=== PATIENT | male | born 1970 | race Caucasian/White ===

== ENCOUNTER 2023-05-25 07:44 | Emergency (ER) | payer OTHER, SELFPAY ==
[2023-05-25] VITALS (37 sets, daily range): BP systolic 110–153; BP diastolic 74–102; PULSE 77–126; RESP 10–27; TEMP 36.6; O2SAT 96–97; BMI 31.3
--- NOTE | 2023-05-25 07:59 | XR_ITS ---
The [address] [address] Patient Name: MITCHELL MAGALLANES MRN: [id number] date: 1970 Sex: M Assigned Patient Location: ER Current Patient Location: ER Accession/Order Number: [id number] Exam Date: 05/25/2023 08:15 Report Date: 05/25/2023 08:29 At the request of: SHAUNNA REYES Procedure: XR chest 1V EXAM: XR chest 1V HISTORY: . vomiting . COMPARISON: None. TECHNIQUE: Single view of the chest FINDINGS: Heart and vascularity are unremarkable. Lungs are free of focal infiltrates. Multiple small 1 to 2 mm calcified granuloma are noted throughout both lung holman. Grossly no bony abnormality. XR/XR chest 1V IMPRESSION: 1. No acute heart or lung disease identified. 2. Old granulomatous disease. Electronically authenticated by: IVETH OWENS Date: 05/25/2023 08:29
--- NOTE | 2023-05-25 07:59 | ECG_ITS ---
The 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
[2023-05-25] MEDS: 0.9 % SODIUM CHLORIDE 1,000 ML 1000 ML IV ×2 (08:07→09:29)
--- NOTE | 2023-05-25 08:07 | ED.NAVMDI1 ---
HPI - Nausea/Vomiting/Diarrhea General Chief complaint: Nausea/Vomiting/Diarrhea Stated complaint: NAUSEA Time Seen by Provider: 05/25/23 07:49 Source: patient Mode of arrival: Wheelchair Limitations: no limitations History of Present Illness HPI Narrative: 52-year-old male presents to the emergency department for nausea vomiting and diarrhea which began yesterday. He's been a drug treatment center for three weeks and hasn't had any use of alcohol or drugs in three weeks. No fever or hematemesis. He can't stop retching. This chest was hurting as well. No fever or injury. Related Data Previous Rx's Medication Instructions Recorded dicyclomine 10 mg capsule 10 mg PO QID PRN abdominal pain 05/25/23 #20 caps ondansetron 4 mg disintegrating 4 mg PO Q6H PRN nausea and 05/25/23 tablet vomiting #20 tabs Allergies Allergy/AdvReac Type Severity Reaction Status Date / Time No Known Drug Allergies Allergy Verified 05/25/23 07:49 Review of Systems ROS Narrative A ten point review of systems is negative except as noted above. PFSH PFSH Social History Smoking status: Current every day smoker Exam Narrative Exam Narrative: Nurses note and vital signs reviewed and patient is not hypoxic. General: The patient is retching Skin: Warm, dry, no pallor noted. There is no rash noted. Head: Normocephalic, atraumatic Eye: Normal conjunctiva, no drainage Ears, Nose, Mouth, and Throat: oral mucosa is moist. Nares patent. Cardiovascular: Regular Rate and Rhythm Respiratory: Patient is in no distress, no accessory muscle use, lungs are clear to auscultation, no wheezing, rales or rhonchi Back: non-tender GI: Normal bowel sounds, no tenderness to palpation, no masses appreciated. No rebound, guarding, or rigidity noted. Musculoskeletal: The patient has no evidence of calf tenderness, no pitting edema, symmetrical pulses noted bilaterally Neurological: A&O, normal speech Psychiatric: Cooperative Constitutional Vital Signs, click to edit/add: Last Vital Signs Temp 97.9 F 05/25/23 07:49 Pulse 80 05/25/23 12:30 Resp 14 05/25/23 12:30 BP 111/74 05/25/23 12:30 Pulse Ox 96 05/25/23 08:01 O2 Del Method Room Air 05/25/23 07:49 Course Vital Signs Vital signs: Vital Signs Temperature 97.9 F 05/25/23 07:49 Respiratory Rate 20 05/25/23 07:49 Blood Pressure 110/74 05/25/23 07:49 Pulse Oximetry 97 05/25/23 07:49 Oxygen Delivery Method Room Air 05/25/23 07:49 Temperature 97.9 F 05/25/23 07:49 Pulse Rate 80 05/25/23 12:30 Respiratory Rate 14 05/25/23 12:30 Blood Pressure 111/74 05/25/23 12:30 Pulse Oximetry 96 05/25/23 08:01 Oxygen Delivery Method Room Air 05/25/23 07:49 MDM - Nausea/Vomiting/Diarrhea MDM Narrative Medical decision making narrative: The patient's workup included CAT scan the abdomen is negative. The sclerotic area in the pelvic bone was discussed with the patient and he'll follow-up with his PCP in that regard. He is able to tolerate by mouth liquids and is able to be discharged. Treatment diagnosis and follow-up were discussed with the patient. Differential Diagnosis Differential diagnosis: Likely food poisoning, gastroenteritis, dehydration and other (anxiety) Lab Data Attestation: I reviewed the patient's lab results. Labs: Lab Results 05/25/23 05/25/23 05/25/23 Range/Units 08:03 08:23 10:11 WBC 10.2 (4.0-11.0) 10^3/uL RBC 5.80 (4.70-6.10) 10^6/uL Hgb 17.6 (14.0-18.0) g/dL Hct 51.2 (42.0-54.0) % MCV 88.3 (80.0-94.0) fL MCH 30.3 (25.9-34.0) pg MCHC 34.4 (29.9-35.2) g/dL RDW 12.8 (11.0-15.0) % Plt Count 418 (150-450) 10^3/uL MPV 9.3 L (9.5-13.5) fL Neut % (Auto) 67.4 (43.0-75.0) % Lymph % (Auto) 16.6 L (20.5-60.0) % Sampson % (Auto) 14.2 H (1.7-12.0) % Eos % (Auto) 1.2 (0.9-7.0) % Baso % (Auto) 0.3 (0.2-2.0) % Neut # (Auto) 6.9 H (1.4-6.5) 10^3/uL Lymph # (Auto) 1.7 (1.2-3.8) 10^3/uL Sampson # (Auto) 1.5 H (0.3-0.8) 10^3/uL Eos # (Auto) 0.1 (0.0-0.7) 10^3/uL Baso # (Auto) 0.0 (0.0-0.1) 10^3/uL Abs Immat Gran (auto) 0.03 (0.00-0.03) 10^3/uL Imm/Tot Granulo (auto) 0.3 (0.0-0.5) % Sodium 138 (136-145) mmol/L Potassium 4.5 (3.5-5.1) mmol/L Chloride 101 (98-107) mmol/L Carbon Dioxide 23.3 (21.0-32.0) mmol/L Anion Gap 18.2 BUN 20.0 H (7.0-18.0) mg/dL Creatinine 1.17 (0.70-1.30) mg/dL Est GFR ( Amer) >60 (>=60) Est GFR (Non-Af Amer) >60 (>=60) BUN/Creatinine Ratio 17.1 Glucose 91 (74-106) mg/dL Calcium 9.0 (8.5-10.1) mg/dL Urine Color Yellow (YELLOW) Urine Clarity Clear (CLEAR) Urine pH 6.0 (5.0-9.0) Ur Specific [place] 1.020 (1.005-1.025) Urine Protein Negative (NEG/TRACE) mg/dL Urine Glucose (UA) Negative (NEGATIVE) mg/dL Urine Ketones Trace A (NEGATIVE) mg/dL Urine Occult Blood Negative (NEGATIVE) Urine Nitrite Negative (NEGATIVE) Urine Bilirubin Negative (NEGATIVE) Urine Urobilinogen 0.2 (0.2-1.0) EU/dL Ur Leukocyte Esterase Negative (NEGATIVE) Urine RBC None seen (0-2) #/HPF Urine WBC 0-2 A (NONE SEEN) #/HPF Ur Squamous Epith Cells None seen (NONE/RARE) #/LPF Urine Crystals None seen (None Seen) #/HPF Urine Bacteria None seen (NONE SEEN) #/HPF Urine Casts None seen (NONE SEEN) #/LPF Urine Mucus Trace A (NONE SEEN) Urine Opiates Screen Negative (NEGATIVE) Ur Buprenorphine Scrn Negative (NEGATIVE) Ur Oxycodone Screen Negative (NEGATIVE) Urine Methadone Screen Negative (NEGATIVE) Ur Barbiturates Screen Negative (NEGATIVE) U Tricyclic Antidepress Negative (NEGATIVE) Ur Phencyclidine Scrn Negative (NEGATIVE) Ur Amphetamines Screen Negative (NEGATIVE) U Methamphetamines Scrn Negative (NEGATIVE) U Benzodiazepines Scrn Positive A (NEGATIVE) Urine Cocaine Screen Negative (NEGATIVE) U Cannabinoids Screen Negative (NEGATIVE) Ethanol Quant <3 mg/dL Imaging Data CT scan - abdomen: Radiologist's impression: Procedure: CT abdomen pelvis w con EXAMINATION: CT abdomen pelvis w con HISTORY: pain, nausea, vomiting COMPARISON: No relevant comparison available. TECHNIQUE: Axial, Coronal, and Sagittal images were obtained without and/or with IV contrast as indicated by examination type. Dose reduction techniques were achieved by using automated exposure control and/or adjustment of mA and/or kV according to patient size and/or use of iterative reconstruction technique. FINDINGS: LUNG BASES: No visible pulmonary or pleural disease. LIVER: No enlargement, atrophy, suspicious density, or significant focal lesion. BILIARY: No dilatation or calcification. PANCREAS: No lesion, fluid collection, or abnormal duct dilatation. SPLEEN: No enlargement or focal lesion. ADRENALS: No mass or enlargement. KIDNEYS: No mass, obstruction, or calcification. BOWEL/MESENTERY: No visible mass, obstruction, or bowel wall thickening. AORTA/VASCULAR: No aneurysm or dissection. RETROPERITONEUM: No mass or adenopathy. LYMPH NODES: No adenopathy. URINARY BLADDER: No visible focal wall thickening, lesion, or calculus. PELVIC ORGANS: No visible mass. Pelvic organs appropriate for patient age. ABDOMINAL WALL: No mass or hernia. BONES: Irregular 2.8 x 2.7 x 1.2 cm sclerotic focus within anterior medial aspect of right ilium with small focus of possible anterior cortical disruption. OTHER: Negative. IMPRESSION: 1. No acute or suspicious findings to account for patient's symptoms. 2. Suspicious sclerotic lesion within the right ilium; sequela of prior trauma versus neoplasm? MRI of pelvis without and with IV contrast is recommended to evaluate for soft tissue component. Electronically authenticated by: MARIAH OLGUIN Date: 05/25/2023 12:16 Discharge Plan Discharge Chief Complaint: Nausea/Vomiting/Diarrhea Clinical Impression: Nausea & vomiting Patient Disposition: Home, Self-Care Time of Disposition Decision: 13:21 Condition: Good Mode of Transportation: Private Vehicle Prescriptions / Home Meds: New dicyclomine 10 mg capsule 10 mg PO QID PRN (Reason: abdominal pain) Qty: 20 0RF ondansetron 4 mg tablet,disintegrating 4 mg PO Q6H PRN (Reason: nausea and vomiting) Qty: 20 0RF Instructions: Acute Nausea and Vomiting (ED) Stand Alone Forms: Portal Instructions Referrals: ROMINA BARNES [Primary Care Provider] - 1 week
[2023-05-25] MEDS: ONDANSETRON PF 4 MG/2 ML VIAL IV (08:08)
[2023-05-25 08:13] LABS: Basophils Percent Auto 0.3 % (0.2-2.0); Eosinophils Absolute Auto 0.1 10^3/uL (0.0-0.7); Eosinophils Percent Auto 1.2 % (0.9-7.0); Hematocrit 51.2 % (42.0-54.0); Hemoglobin 17.6 g/dL (14.0-18.0); Immature Granulocytes Abs Auto 0.03 10^3/uL (0.00-0.03); Immature Granulocytes Pct Auto 0.3 % (0.0-0.5); Lymphocytes Absolute Auto 1.7 10^3/uL (1.2-3.8); Lymphocytes Percent Auto 16.6 % (20.5-60.0); Mean Corpuscular HGB Conc 34.4 g/dL (29.9-35.2); Mean Corpuscular Hemoglobin 30.3 pg (25.9-34.0); Mean Corpuscular Volume 88.3 fL (80.0-94.0); Mean Platelet Volume 9.3 fL (9.5-13.5); Monocytes Absolute Auto 1.5 10^3/uL (0.3-0.8); Monocytes Percent Auto 14.2 % (1.7-12.0); Neutrophils Absolute Auto 6.9 10^3/uL (1.4-6.5); Neutrophils Percent Auto 67.4 % (43.0-75.0); Platelet Count 418 10^3/uL (150-450); Red Cell Distribution Width 12.8 % (11.0-15.0); White Blood Count 10.2 10^3/uL (4.0-11.0)
[2023-05-25 08:37] LABS: Anion Gap 18.2; BUN Creatinine Ratio 17.1; Carbon Dioxide 23.3 mmol/L (21.0-32.0); Chloride 101 mmol/L (98-107); Estimated GFR (African America >60 (>=60); Estimated GFR (Non-African Ame >60 (>=60); Glucose 91 mg/dL (74-106); Potassium 4.5 mmol/L (3.5-5.1); Sodium 138 mmol/L (136-145)
[2023-05-25] MEDS: LORAZEPAM 2 MG/ML 1 ML VIAL 1 MG IV ×2 (08:37→11:13)
[2023-05-25 08:45] LABS: Ethanol <3 mg/dL
[2023-05-25 10:27] LABS: Bilirubin Urine NEGATIVE (NEGATIVE); Blood Urine NEGATIVE (NEGATIVE); Clarity Urine CLEAR (CLEAR); Color Urine YELLOW (YELLOW); Glucose Urine UA NEGATIVE (NEGATIVE); Ketones Urine TRACE mg/dL (NEGATIVE); Leukocyte Esterase Urine NEGATIVE (NEGATIVE); Nitrite Urine NEGATIVE (NEGATIVE); Protein Urine NEGATIVE (NEG/TRACE); Urobilinogen Urine 0.2 EU/dL (0.2-1.0)
[2023-05-25 10:34] LABS: RBC Urine NONE SEEN #/HPF (0-2); WBC Urine 0-2 #/HPF (NONE SEEN)
[2023-05-25 10:35] LABS: Bacteria Urine NONE SEEN #/HPF (NONE SEEN); Cast Seen? NONE SEEN #/LPF (NONE SEEN); Crystals Seen? None Seen #/HPF (None Seen); Mucus Urine TRACE (NONE SEEN); Squamous Epithelial Cell Urine NONE SEEN #/LPF (NONE/RARE)
[2023-05-25 10:38] LABS: Amphetamine Screen Urine NEGATIVE (NEGATIVE); Barbiturates Screen Urine NEGATIVE (NEGATIVE); Benzodiazepines Screen Urine POSITIVE (NEGATIVE); Buprenorphine Screen Urine NEGATIVE (NEGATIVE); Cannabinoid Screen Urine NEGATIVE (NEGATIVE); Cocaine Screen Urine NEGATIVE (NEGATIVE); Methadone Screen Urine NEGATIVE (NEGATIVE); Methamphetamines Screen Urine NEGATIVE (NEGATIVE); Opiate Screen Urine NEGATIVE (NEGATIVE); Oxycodone Screen Urine NEGATIVE (NEGATIVE); Phencyclidine Screen Urine NEGATIVE (NEGATIVE); Tricyclic Antidepressant Urine NEGATIVE (NEGATIVE)
--- NOTE | 2023-05-25 11:19 | CT_ITS ---
The [address] [address] Patient Name: MITCHELL MAGALLANES MRN: [id number] date: 1970 Sex: M Assigned Patient Location: ER Current Patient Location: Accession/Order Number: [id number] Exam Date: 05/25/2023 11:37 Report Date: 05/25/2023 12:16 At the request of: SHAUNNA REYES Procedure: CT abdomen pelvis w con EXAMINATION: CT abdomen pelvis w con HISTORY: pain, nausea, vomiting COMPARISON: No relevant comparison available. TECHNIQUE: Axial, Coronal, and Sagittal images were obtained without and/or with IV contrast as indicated by examination type. Dose reduction techniques were achieved by using automated exposure control and/or adjustment of mA and/or kV according to patient size and/or use of iterative reconstruction technique. FINDINGS: LUNG BASES: No visible pulmonary or pleural disease. LIVER: No enlargement, atrophy, suspicious density, or significant focal lesion. BILIARY: No dilatation or calcification. PANCREAS: No lesion, fluid collection, or abnormal duct dilatation. SPLEEN: No enlargement or focal lesion. ADRENALS: No mass or enlargement. KIDNEYS: No mass, obstruction, or calcification. BOWEL/MESENTERY: No visible mass, obstruction, or bowel wall thickening. AORTA/VASCULAR: No aneurysm or dissection. RETROPERITONEUM: No mass or adenopathy. LYMPH NODES: No adenopathy. URINARY BLADDER: No visible focal wall thickening, lesion, or calculus. PELVIC ORGANS: No visible mass. Pelvic organs appropriate for patient age. ABDOMINAL WALL: No mass or hernia. BONES: Irregular 2.8 x 2.7 x 1.2 cm sclerotic focus within anterior medial aspect of right ilium with small focus of possible anterior cortical disruption. OTHER: Negative. CT/CT abdomen pelvis w con IMPRESSION: 1. No acute or suspicious findings to account for patient's symptoms. 2. Suspicious sclerotic lesion within the right ilium; sequela of prior trauma versus neoplasm? MRI of pelvis without and with IV contrast is recommended to evaluate for soft tissue component. Electronically authenticated by: MARIAH OLGUIN Date: 05/25/2023 12:16
--- OUTSIDE RECORDS SUMMARY | 2023-06-30 18:23 | XMS_ITS | CCD ---
Author Name Unknown Address [address] [facility] [address] [place] [address] Organization [facility] Care Team Providers Care Cutting Supervisor Name Role Phone Taina Connell Primary Care Provider Unavailabl e Unknown, Pcp Unavailable Unavailable Aniceto Alvarez Unavailable Lele Castañeda Unavailable Taina Connell Primary Care Provider PROVIDER, UNKNOWN Attending Unavailable PROVIDER, UNKNOWN Admitting Unavailable Unavailable Primary Care Provider Unavailabl e ROSE Attending Unavailable Required, No Pcp Unavailable Unavailable Krystyna Nelson Unavailable Azul, Jin Unavailable [facility] Primary Care Provider DO Rik Lemos Emergency Provider BERNICE Almendarez Emergency Provider DO Chas Hoyos Admit Provider [phone] DO Chas Hoyos Attending Provider DO Cleveland Foreman Attending Provider MD Paulo Strauss Other Provider MD Paulo Strauss Admit Provider MD Paulo Strauss Attending Provider DO Eric Rust Emergency Provider [phone] JO Freitas Emergency Provider Trae Brantley Primary Care Provider Diaz Paz Unavailable DO Rik Lemos Emergency Provider Unavailab DO Greg White Emergency Provider MD Thuy Fitzpatrick Admit Provider [phone] MD Thuy Rodriges Attending Provider [facility] Primary Care Provider [phone] DO Rik Lemos Emergency Provider Unavailab BERNICE Jama Emergency Provider DO Chas Hoyos Admit Provider DO Cleveland Foreman Attending Provider [phone] MD Paulo Strauss Other Provider [phone] MD Paulo Strauss Admit Provider MD Paulo Strauss Attending Provider [phone] DO Eric khoury Emergency Provider JO Freitas Emergency Provider DO Greg Alexander Emergency Provider MD Thuy Fitzpatrick Admit Provider MD Thuy Rodriges Attending Provider [phone] TRAE BRANTLEY Primary Care Unavailable REYNALDO BERRY Admitting Unavailable TROY MANUEL Attending Unavailable MICHAELA CHAN Consulting Unavailable TRAE BRANTLEY Primary Care Unavailable TRAE BRANTLEY Primary Care Unavailable IVETH CONTRERAS Attending Unavailable [facility] Primary Care Provider [phone] BERNICE Almendarez Emergency Provider [phone] MD Thuy Rodriges Admit Provider MD Thuy Rodriges Attending Provider Pedrito Duran MD Primary Care Provider PEDRITO DURAN Primary Care Unavailable Trae Brantley Unavailable Markel Ramachandran Unavailable Unavailable MD Paulo Strauss Attending Provider MD Naeem Rodriges Admit Provider DO Nir [place] Emergency Provider [phone] MD Paulo Strauss Admit Provider Spasic, Trae E Primary Care Provider PCP, Pt States None Referring Unavailable Jin Liang Attending Unavailable Spasic, MsJanet Melendezbeth Primary Care Unav ailable Aiden, Mr. Hatfield Racielrasheeda Attending Unavail able Rosana, Dr. Connor Attending Unavailable PCP, Pt States None Referring Unavailable Jackson, Dr. Diaz Novoa Admitting Unavaila ble Jackson, Dr. Diaz Novoa Attending Unavaila ble Madie, Dr. 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, Trae [place] Primary Care Pr ovider SPASIC, [facility]E [place] Primary Care Unavaila HOLLIE Blancas Attending Unavailable SPASIC, [facility] Primary Care Unavaila ble SPASIC, [facility] Primary Care Unavaila OLGA Jones Attending Unavailable OLGA SCHAEFFER Admitting Unavailable ROSANA OMAID Referring Unavailable [facility] Primary Care Unavaila ble ROSANA, OMAID Referring Unavailable TRAE BRANTLEY Primary Care Unavaila ble [facility] Primary Care Provider DO Tomás Nir Connie Emergency Provider MD Naeem Rodriges Attending Provider MD Imtiaz Straussmi Admit Provider MD Paulo Strauss Attending Provider [phone] [facility] Primary Care Unavaila ble Eric Rust Admitting Unavailable Eric Ruts Attending Unavailable [facility] Primary Care Unavaila ble Paulo Strauss Consulting Unavailable Chas Hoyos Admitting Unavailable Cleveland Foreman Attending Unavailabl e Naeem Rodriges Admitting Unavailab le Naeem Rodriges Attending Unavailab le [facility] Primary Care Unavaila ble [facility] Primary Care Unavaila ble Naeem Rodriges Attending Unavailab gordon Strauss, Paulo Admitting Unavailable Naeem Rodriges Attending Unavailab le [facility] Primary Care Unavaila ble Carlos A, Paulo Admitting Unavailable [facility] Primary Care Unavaila ble Paulo Strauss Attending Unavailable Naeem Rodriges Admitting Unavailab le Naeem Rodriges Attending Unavailab [facility] Primary Care Unavaila ble Danyelle Straussyemi Admitting Unavailable [facility] Primary Care Unavaila ble Rik Lemos Admitting Unavailable Rik Lemos Attending Unavailable [facility] Primary Care Unavaila ble Eric Rust Admitting Unavailable Eric Rust Attending Unavailable Tessie Freitas Admitting Unavailable Tessie Freitas Attending Unavailable [facility] Primary Care Unavaila ble Medications Current Medications Medication Drug Class(es) Dates Sig (Normalized) Sig (Original) acetaminophen 325 mg oral tablet (2 sources) Start: 06-30-2021 acetaminophen (TYLENOL) tablet 650 mg Start: 06-28-2021 End: 06-28-2021 acetaminophen (TYLENOL) tabl et 1,000 mg benzocaine 15 mg / menthol 3.6 mg oral lozenge (1 source) Standardized Chemical Allergen Start: 06-30-2021 benzocaine-menthol (CEPACOL SORE THROAT) lozenge 1 lozenge cetirizine hydrochloride 10 mg oral tablet (2 sources) Histamine-1 Receptor Antagonist Start: 07-01-2021 End: 07-07-2021 take 1 tablet by mouth once daily cetirizine (ZYRTEC) 10 MG tablet Take 1 tablet by mouth daily for 5 days 5 tablet 0 07/02/2021 07/07/2021 Active doxepin hydrochloride 10 mg oral capsule (11 sources) Tricyclic Antidepressant Start: 06-02-2023 take 20 mg by mouth three times daily Doxepin Active 20 MG PO Three times daily 90 June 02, 2023 12:00am Start: 04-21-2023 End: 06-02-2023 take 10 mg by mouth three times daily Doxepin Discontinued 10 MG PO Three times daily 90 April 20, 2023 11:00pm June 02, 2023 10:12am Start: 09-17-2022 End: 02-11-2023 take 25 mg by mouth once daily at bedtime Doxepin Discontinued 25 MG PO Daily at bedtime 45 45 September 17, 2022 12:00am February 11, 2023 1:02pm Start: 06-22-2022 End: 07-19-2022 take 1 capsule by mouth once at bedtime doxepin 25 mg oral capsule ; 1 cap(s) orally once (at bedtime) Quantity: 14 Refills: 1 Ordered: 22-Jun-2022 Jin Liang Start: 22-Jun-2022 End: 19-Jul-2022 Generic Substitution Allowed 0.4 ml enoxaparin sodium 100 mg/ml prefilled syringe (1 source) Low Molecular Weight Heparin Start: 06-28-2021 inject 40 mg by subcutaneous injection once daily 40 mg, SubCUTAneous, DAILY, First dose on Thu06/28/21 at 1615 hydrocortisone acetate 25 mg/ml / pramoxine hydrochloride 10 mg/ml rectal cream (1 source) Corticosteroid Start: 07-08-2021 Hydrocort-Pramoxi ne (Perianal) (ANALPRAM-HC) 2.5-1 % rectal cream levETIRAcetam 250 mg oral tablet (1 source) Start: 2023 take 250 mg by mouth twice daily Levetiracetam Active 250 MG PO Twice daily 2023 12:00am 1 ml LORazepam 2 mg/ml injection (6 sources) Benzodiazepine Start: 09-23-2022 LORazepam (ATIVAN) injection 2 mg Start: 07-27-2022 End: 07-27-2022 LORazepam (ATIVAN) 2 MG/ML i njection Start: 07-27-2022 End: 07-27-2022 LORazepam (ATIVAN) injection 2 mg Start: 06-29-2021 LORazepam (ATI VAN) tablet 1 mg Start: 06-28-2021 End: 06-29-2021 2 mg, IntraVENous, EVERY 6 H OURS PRN, Anxiety, Irritation, Starting on Thu06/28/21 at 1614 Start: 06-28-2021 End: 06-28-2021 LORazepam (ATIVAN) injection 2 mg montelukast 10 mg oral tablet (4 sources) Leukotriene Receptor Antagonist Start: 07-01-2021 take 1 tablet by mouth once daily montelukast (SINGULAIR) 10 MG tablet Take 1 tablet by mouth nightly 30 tablet 3 07/01/2021 Active multivitamin 1 tablet (1 source) Start: 06-29-2021 multivitamin 1 tablet Galloway (No Known Home Meds) (1 source) Start: 02-11-2023 Galloway (No Known Home Meds) Active February 11, 2023 12:00am OLANZapine 5 mg oral tablet (15 sources) Atypical Antipsychotic Start: 06-02-2023 take 5 mg by mouth every six hours Olanzapine Active 5 MG PO Q6H 30 June 02, 2023 12:00am Start: 04-15-2023 End: 04-21-2023 take 1 tablet by mouth twice daily Olanzapine (Zyprexa) 7.5 mg tablet Discontinued 7.5 MG PO Twice daily April 14, 2023 11:00pm April 21, 2023 10:23am Start: 06-22-2022 End: 07-19-2022 OLANZapine 2.5 mg oral table t ; 1 tab(s) orally 2 times a day - (Every 1 day at 08:00, 12:00 ) Quantity: 28 Refills: 1 Ordered: 22-Jun-2022 Jin Liang Start: 22-Jun-2022 End: 19-Jul-2022 Generic Substitution Allowed Start: 06-22-2022 End: 07-19-2022 take 1 tablet by mouth once at bedtime OLANZapine 10 mg oral tablet ; 1 tab(s) orally once (at bedtime) Quantity: 14 Refills: 1 Ordered: 22-Jun-2022 Jin Liang Start: 22-Jun-2022 End: 19-Jul-2022 Generic Substitution Allowed Start: 02-11-2022 End: 04-11-2022 take 1 tablet by mouth once OLANZapine 20 mg oral tabl et ; 1 tab(s) orally once (at bedtime)mood/thoughts Quantity: 30 Refills: 1 Ordered: 11-Feb-2022 Taisha Posadas Start: 11-Feb-2022 End: 11-Apr-2022 Generic Substitution Allowed Start: 07-08-2021 OLANZapine (ZY PREXA) tablet 15 mg Start: 06-29-2021 OLANZapine (ZY PREXA) tablet 15 mg OLANZapine (ZYPR EXA) 10 MG tablet Take 15 mg by mouth nightly as needed (for Insomnia) 0 Active omeprazole 40 mg delayed release oral capsule (13 sources) Proton Pump Inhibitor Start: 04-15-2023 End: 04-20-2023 take 40 mg by mouth once daily Omeprazole Active 40 MG PO Daily April 20, 2023 7:43am Start: 05-31-2019 End: 07-09-2022 take 20 mg by mouth once daily Omeprazole Discontinued 20 MG PO Daily May 31, 2019 12:00am July 09, 2022 1:14pm QUEtiapine 25 mg oral tablet (20 sources) Atypical Antipsychotic Start: 04-20-2023 End: 06-02-2023 take 25 mg by mouth three times daily Quetiapine Active 25 MG PO Three times daily June 02, 2023 7:27am Start: 09-22-2022 End: 02-11-2023 take 400 mg by mouth once daily at bedtime Quetiapine Discontinued 400 MG PO Daily at bedtime September 21, 2022 11:00pm February 11, 2023 1:02pm Start: 09-17-2022 End: 02-11-2023 take 300 mg by mouth once daily at bedtime Quetiapine Discontinued 300 MG PO Daily at bedtime 45 September 17, 2022 12:00am February 11, 2023 1:02pm Start: 09-09-2022 End: 09-22-2022 take 200 mg by mouth once daily at bedtime Quetiapine Discontinued 200 MG PO Daily at bedtime September 09, 2022 12:00am September 22, 2022 9:18am Start: 09-09-2022 End: 02-11-2023 take 50 mg by mouth once daily Quetiapine Discontinued 50 MG PO Daily 45 September 17, 2022 12:00am February 11, 2023 1:02pm Start: 08-12-2022 End: 09-16-2022 take 1 tablet by mouth once at bedtime QUEtiapine 100 mg oral tablet ; 1 tab(s) orally once (at bedtime) Quantity: 30 Refills: 0 Ordered: 18-Aug-2022 Brayden Lopez Start: 18-Aug-2022 End: 16-Sep-2022 Generic Substitution Allowed rOPINIRole 0.25 mg oral tablet (20 sources) Nonergot Dopamine Agonist Start: 04-20-2023 End: 2023 take 0.25 mg by mouth twice daily Ropinirole Active 0.25 MG PO Twice daily 2023 8:12pm Start: 04-15-2023 End: 04-15-2023 take 0.5 mg by mouth once daily Ropinirole Discontinue d 0.5 MG PO Daily April 15, 2023 7:32am April 15, 2023 10:43am Start: 03-17-2023 End: 04-21-2023 take 0.25 mg by mouth once daily Ropinirole Discontinued 0.25 MG PO Daily April 14, 2023 11:00pm April 21, 2023 10:23am Start: 02-16-2023 End: 04-15-2023 take 0.5 mg by mouth twice daily Ropinirole Discontinued 0.5 MG PO Twice daily February 15, 2023 11:00pm April 15, 2023 7:32am Start: 09-17-2022 End: 02-11-2023 take 0.5 mg by mouth twice daily Ropinirole Discontinued 0.5 MG PO Twice daily 90 September 17, 2022 12:00am February 11, 2023 1:02pm Start: 08-12-2022 End: 09-22-2022 take 0.5 mg by mouth once daily at bedtime Ropinirole Discontinued 0.5 MG PO Daily at bedtime September 09, 2022 12:00am September 22, 2022 9:18am Comment on above: Take 1 tablet by sid th daily at bedtime. sertraline 50 mg oral tablet (9 sources) Serotonin Reuptake Inhibitor Start: 06-02-2023 take 175 mg by mouth once daily Sertraline Active 175 MG PO Daily 105 June 02, 2023 12:00am Start: 2023 End: 06-02-2023 take 100 mg by mouth once daily Sertraline Discontinue d 100 MG PO Daily 2023 12:00am June 02, 2023 10:12am Start: 04-20-2023 End: 2023 take 150 mg by mouth once daily Sertraline Discontinue d 150 MG PO Daily April 19, 2023 11:00pm 2023 8:16pm Start: 04-15-2023 End: 04-21-2023 take 1 tablet by mouth once daily Sertraline (Zoloft) 100 mg tablet Discontinued 100 MG PO Daily April 14, 2023 11:00pm April 21, 2023 10:23am Start: 04-15-2023 End: 04-15-2023 take 50 mg by mouth once daily Sertraline Discontinued 50 MG PO Daily April 14, 2023 11:00pm April 15, 2023 10:41am Start: 02-28-2023 sertraline (ZO LOFT) 25 mg tablet sodium chloride flush 0.9 % injection 3 mL (1 source) Start: 05-02-2019 sodium chlorid e flush 0.9 % injection 3 mL 24 hr divalproex sodium 500 mg extended release oral tablet (20 sources) Mood Stabilizer, Anti-epileptic Agent Start: 02-16-2023 take 500 mg by mouth twice daily Divalproex Active 500 MG PO Twice daily 60 30 February 15, 2023 11:00pm Start: 09-09-2022 End: 02-11-2023 take 500 mg by mouth once daily Divalproex Discontinue d 500 MG PO Daily 45 45 September 17, 2022 12:39pm February 11, 2023 1:02pm Start: 09-09-2022 End: 02-11-2023 take 1000 mg by mouth once daily at bedtime Divalproex Discontinued 1000 MG PO Daily at bedtime 90 45 September 17, 2022 12:39pm February 11, 2023 1:02pm Start: 08-18-2022 End: 09-16-2022 take 1 tablet by mouth three times daily divalproex sodium 500 mg oral delayed release tablet ; 1 tab(s) orally 3 times a day Quantity: 90 Refills: 0 Ordered: 18-Aug-2022 Brayden Lopez Start: 18-Aug-2022 End: 16-Sep-2022 Generic Substitution Allowed Start: 08-12-2022 take 1 tablet by sid th every eight hours divalproex (DEPAKOTE) [address] tablet Take 1 tablet by mouth every 8 hours 45 tablet 3 08/12/2022 Active Start: 07-11-2022 End: 07-15-2022 take 500 mg by mouth once daily at bedtime Divalproex Discontinued 500 MG PO Daily at bedtime July 11, 2022 12:00am July 15, 2022 10:17am Comment on above: Take 1 tablet by sid th twice daily. ziprasidone 60 mg oral capsule (4 sources) Atypical Antipsychotic Start: 06-02-2023 take 60 mg by mouth at breakfast Ziprasidone Hcl Active 60 MG PO With breakfast and supper 30 June 02, 2023 12:00am Start: 04-20-2023 End: 06-02-2023 take 40 mg by mouth at breakfast Ziprasidone Hcl Disco ntinued 40 MG PO With breakfast and supper 60 April 19, 2023 11:00pm June 02, 2023 10:13am Start: 03-17-2023 take 1 capsule by mo ut twice daily at mealtime ziprasidone (GEODON) 80 mg capsule Take 1 capsule by mouth twice daily with meals. 60 capsule 0 03/17/2023 Suspended Comment on above: Take 1 capsule by mo uth twice daily with meals. Completed/Discontinued Medications Medication Drug Class(es) Dates Sig (Normalized) Sig (Original) acetaminophen 300 mg / HYDROcodone bitartrate 5 mg oral tablet (9 sources) Opioid Agonist Start: 06-07-2018 End: 06-21-2018 Hydrocodone-Acetami nophen (Vicodin) 5-300 mg Tablet Discontinued 1 TAB PO As Directed June 07, 2018 12:00am June 21, 2018 5:26pm acetaminophen 325 mg / oxyCODONE hydrochloride 5 mg oral tablet (18 sources) Opioid Agonist Start: 09-29-2018 End: 10-02-2018 take 1 tablet by mouth every six hours Oxycodone-Acetamino phen (Percocet) 5-325 mg tablet Discontinued 1 TAB PO Q6H 7 3 September 29, 2018 October 01, 2018 11:02pm Start: 06-18-2018 End: 09-22-2018 take 2 tablets by mouth every four to six hours Oxycodone-Acetaminophen Discontinued 2 TAB PO EVERY 4-6 HOURS 49 7 June 18, 2018 12:00am September 22, 2018 10:50am [id number] 200 actuat albuterol 0.09 mg/actuat metered dose inhaler (9 sources) beta2-Adrenergic Agonist Start: 05-31-2019 End: 07-09-2022 Albuterol Sulfate Discontinued 2 INH INHALATION EVERY 4-6 HOURS May 31, 2019 12:00am July 09, 2022 1:14pm administer with spacer amitriptyline hydrochloride 50 mg oral tablet (9 sources) Tricyclic Antidepressant Start: 06-07-2018 End: 06-21-2018 take 50 mg by mouth once daily at bedtime Amitriptyline Discontinued 50 MG PO Daily at bedtime June 07, 2018 12:00am June 21, 2018 5:26pm amLODIPine 10 mg oral tablet (20 sources) Dihydropyridine Calcium Channel Shady Start: 03-20-2018 End: 07-09-2022 take 1 tablet by mouth once daily Amlodipine (Norvasc) 10 mg tablet Discontinued 10 MG PO Daily June 07, 2018 2:54pm July 09, 2022 1:14pm Comment on above: Take 10 mg by mouth once daily. benztropine mesylate 0.5 mg oral tablet (10 sources) Anticholinergic, Antihistamine Start: 09-09-2022 End: 02-11-2023 take 0.5 mg by mouth twice daily Benztropine Discontinued 0.5 MG PO Twice daily 90 45 September 17, 2022 12:39pm February 11, 2023 1:02pm busPIRone hydrochloride 15 mg oral tablet (4 sources) Start: 2023 End: 06-02-2023 take 15 mg by mouth three times daily Buspirone Discontinued 15 MG PO Three times daily 2023 12:00am June 02, 2023 10:12am Start: 02-16-2023 End: 04-15-2023 take 15 mg by mouth three times daily Buspirone Discontinued 15 MG PO Three times daily 90 February 15, 2023 11:00pm April 15, 2023 7:29am carisoprodol 250 mg oral tablet (18 sources) Muscle Relaxant Start: 06-18-2018 End: 03-14-2019 take 1 tablet by mouth four times daily Carisoprodol (Soma) 250 mg tablet Discontinued 250 MG PO Four times daily 120 June 18, 2018 12:00am March 14, 2019 3:56pm Start: 06-07-2018 End: 09-29-2018 take 1 tablet by mouth at bedtime Carisoprodol (Soma) 350 mg Tablet Discontinued 350 MG PO Bedtime June 07, 2018 12:00am September 29, 2018 10:09am cephalexin 500 mg oral capsule (9 sources) Cephalosporin Antibacterial Start: 09-22-2018 End: 09-29-2018 take 1 capsule by mouth four times daily Cephalexin (Keflex) 500 mg capsule Discontinued 500 MG PO Four times daily 40 September 21, 2018 11:00pm September 29, 2018 10:09am chlorproMAZINE hydrochloride 50 mg oral tablet (16 sources) Phenothiazine Start: 07-15-2022 End: 09-09-2022 take 50 mg by mouth twice daily Chlorpromazine Discontinued 50 MG PO Twice daily July 15, 2022 12:00am September 09, 2022 9:59pm Start: 07-15-2022 End: 09-09-2022 take 100 mg by mouth at bedtime Chlorpromazine Discontinued 100 MG PO Bedtime July 15, 2022 12:00am September 09, 2022 9:59pm cholecalciferol 0.025 mg oral tablet (7 sources) Vitamin D Start: 04-20-2023 End: 2023 take 50 ug by mouth once daily Cholecalciferol (Vitamin D3) Discontinued 50 MCG PO Daily 60 30 April 19, 2023 11:00pm 2023 8:07pm Start: 09-17-2022 End: 02-11-2023 take 50 ug by mouth once daily Cholecalciferol (Vitamin D3) Discontinued 50 MCG PO Daily 45 September 17, 2022 12:00am February 11, 2023 1:02pm ciprofloxacin 500 mg oral tablet (9 sources) Quinolone Antimicrobial Start: 04-02-2018 End: 06-07-2018 take 1 tablet by mouth every two hours Ciprofloxacin Hcl (Cipro) 500 mg tablet Discontinued 500 MG PO Twice daily April 01, 2018 11:00pm June 07, 2018 2:51pm administer dose at least 2 hrs before/6 hrs after dairy products, calcium, zinc, and/or iron-containing products cyclobenzaprine hydrochloride 10 mg oral tablet (9 sources) Muscle Relaxant Start: 04-27-2019 End: 04-29-2019 take 10 mg by mouth three times daily Cyclobenzaprine Discontinued 10 MG PO Three times daily April 26, 2019 11:00pm April 29, 2019 10:30am 1 ml diphenhydrAMINE hydrochloride 50 mg/ml cartridge (1 source) Histamine-1 Receptor Antagonist Start: 06-28-2021 End: 06-28-2021 diphenhydrAMINE (BENADRYL) injection 50 mg docusate sodium 100 mg oral capsule (1 source) Start: 03-17-2023 take 1 capsule by mouth once daily docusate sodium (COLACE) 100 mg capsule Take 1 capsule by mouth once daily. 30 capsule 0 03/17/2023 Suspended Comment on above: Take 1 capsule by [facility] once daily. DULoxetine 30 mg delayed release oral capsule (5 sources) Serotonin and Norepinephrine Reuptake Inhibitor Start: 09-21-2022 End: 02-11-2023 take 30 mg by mouth once daily Duloxetine Discontinued 30 MG PO Daily 45 September 21, 2022 12:00am February 11, 2023 1:02pm famotidine 20 mg oral tablet (9 sources) Histamine-2 Receptor Antagonist Start: 04-02-2018 End: 05-31-2019 take 1 tablet by mouth twice daily Famotidine (Pepcid) 20 mg Tablet Discontinued 20 MG PO Twice daily April 01, 2018 11:00pm May 31, 2019 10:48pm ferrous sulfate 325 mg oral tablet (3 sources) Start: 04-15-2023 End: 2023 take 1 tablet by mouth once daily Ferrous Sulfate (Ferosul) 325 mg (65 mg iron) tablet Discontinued 325 MG PO Daily April 14, 2023 11:00pm 2023 8:09pm Start: 03-17-2023 take 1 tablet by sid th once daily ferrous sulfate 325 mg (65 mg iron) tablet Take 1 tablet by mouth once daily. 30 tablet 0 03/17/2023 Suspended Comment on above: Take 1 tablet by sid th once daily. folic acid 1 mg oral tablet (19 sources) Start: 04-15-2023 End: 2023 take 1 mg by mouth once daily Folic Acid Discontinued 1 MG PO Daily April 14, 2023 11:00pm 2023 8:09pm Start: 06-22-2022 End: 02-11-2023 take 1 mg by mouth once daily Folic Acid Discontinued 1 MG PO Daily 45 45 September 17, 2022 12:39pm February 11, 2023 1:02pm Start: 02-11-2022 End: 04-11-2022 take 1 tablet by mouth once daily folic acid 1 mg oral tablet ; 1 tab(s) orally once a day supplement Quantity: 30 Refills: 1 Ordered: 11-Feb-2022 Taisha Posadas Start: 11-Feb-2022 End: 11-Apr-2022 Generic Substitution Allowed gabapentin 400 mg oral capsule (20 sources) Anti-epileptic Agent Start: 03-17-2023 take 2 capsules by mouth every twelve hours gabapentin (NEURONTIN) 400 mg capsule Take 2 capsules by mouth every 12 hours for 30 days. 120 capsule 0 03/17/2023 Suspended Start: 03-04-2023 gabapentin (NE URONTIN) 300 mg capsule Start: 09-09-2022 End: 09-22-2022 take 600 mg by mouth twice daily Gabapentin Discontinued 600 MG PO Twice daily September 09, 2022 12:00am September 22, 2022 9:18am Start: 08-12-2022 take 1 capsule by mo [facility] three times daily gabapentin (NEURONTIN) 100 MG capsule Indications: Bipolar 1 disorder (HCC) Take 1 capsule by mouth 3 times daily for 14 days. 42 capsule 0 08/12/2022 Active Start: 07-09-2022 End: 09-16-2022 take 300 mg by mouth four times daily Gabapentin Discontinued 300 MG PO Four times daily July 17, 2022 12:00am September 09, 2022 9:40pm Start: 06-07-2018 End: 07-09-2022 take 800 mg by mouth three times daily Gabapentin Discontinued 800 MG PO Three times daily June 07, 2018 12:00am July 09, 2022 1:14pm Start: 04-02-2018 End: 06-07-2018 take 300 mg by mouth once daily Gabapentin Discontinue d 300 MG PO Daily April 01, 2018 11:00pm June 07, 2018 2:51pm Comment on above: Take 2 capsules by m outh every 12 hours for 30 days. 1 ml haloperidol 5 mg/ml injection (5 sources) Typical Antipsychotic Start: 09-23-2022 End: 09-23-2022 haloperidol lactate (HALDOL) injection 5 mg Start: 07-27-2022 End: 07-27-2022 haloperidol lactate (HALDOL) injection 10 mg Start: 07-27-2022 End: 07-27-2022 haloperidol lactate (HALDOL) 5 MG/ML injection Start: 06-28-2021 inject 5 mg by intra muscular injection every six hours as needed 5 mg, IntraMUSCular, EVERY 6 HOURS PRN, Agitation, Starting on Thu06/28/21 at 1614 IM route of administration preferred. Because of the risk of TdP and QT prolongation, ECG monitoring is recommended if haloperidol is given IV. Start: 06-28-2021 End: 06-28-2021 haloperidol lactate (HALDOL) injection 10 mg hydrocortisone 25 mg/ml topical cream (9 sources) Corticosteroid Start: 09-22-2018 End: 03-14-2019 Hydrocortisone Discontinued 2.5 PERCENT TOPICAL Three times daily September 21, 2018 11:00pm March 14, 2019 3:56pm APPLY TO RIGHT HAND hydrOXYzine pamoate 50 mg oral capsule (20 sources) Antihistamine Start: 02-16-2023 End: 2023 take 50 mg by mouth every six hours Hydroxyzine Pamoate Discontinued 50 MG PO Q6H 60 February 15, 2023 11:00pm 2023 8:17pm Start: 07-09-2022 End: 09-09-2022 take 50 mg by mouth four times daily Hydroxyzine Pamoate Discontinued 50 MG PO Four times daily July 17, 2022 12:00am September 09, 2022 9:59pm Start: 02-11-2022 End: 02-16-2022 take 1 tablet by mouth every six hours as needed hydrOXYzine hydrochloride 50 mg oral tablet ; 1 tab(s) orally every 6 hours, As needed, anxiety Quantity: 24 Refills: 0 Ordered: 11-Feb-2022 Cuauhtemoc Taisha Start: 11-Feb-2022 End: 16-Feb-2022 Generic Substitution Allowed Start: 06-28-2021 take 50 mg by mouth every four hours as needed for anxiety 50 mg, Oral, EVERY 4 HOURS PRN, Anxiety, Starting on Thu06/28/21 at 1614 take 1 capsule by [facility] every four hours as needed for anxiety hydrOXYzine (VISTARIL) 50 MG capsule Take 50 mg by mouth every 4 hours as needed for Anxiety 0 Active 1 ml ketorolac tromethamine 30 mg/ml cartridge (2 sources) Nonsteroidal Anti-inflammatory Drug, Cyclooxygenase Inhibitor Start: 05-02-2019 End: 05-02-2019 ketorolac (TORADOL) injection 30 mg lisinopril 10 mg oral tablet (20 sources) Angiotensin Converting Enzyme Inhibitor Start: 03-17-2023 End: 04-21-2023 take 10 mg by mouth once daily Lisinopril Discontinued 10 MG PO Daily April 14, 2023 11:00pm April 21, 2023 10:23am Start: 06-07-2018 End: 07-09-2022 take 10 mg by mouth once daily Lisinopril Discontinued 10 MG PO Daily June 07, 2018 12:00am July 09, 2022 1:14pm Comment on above: Take 10 mg by mouth once daily. [facility] lithium carbonate 150 mg ora l capsule (2 sources) Start: 06-30-2021 End: 07-01-2021 lithium capsule 300 mg Start: 06-29-2021 End: 06-30-2021 lithium capsule 150 mg lurasidone hydrochloride 40 mg oral tablet (2 sources) Atypical Antipsychotic Start: 04-15-2023 End: 04-21-2023 take 1 tablet by mouth once daily Lurasidone (Latuda) 40 mg tablet Discontinued 40 MG PO Daily with supper April 14, 2023 11:00pm April 21, 2023 10:23am magnesium oxide 400 mg oral tablet (9 sources) Start: 06-07-2018 End: 09-22-2018 take 400 mg by mouth once daily Magnesium Oxide Discontinued 400 MG PO Daily with supper June 07, 2018 12:00am September 22, 2018 10:50am mirtazapine 15 mg oral tablet (16 sources) Start: 07-15-2022 End: 09-09-2022 take 15 mg by mouth once daily at bedtime Mirtazapine Discontinued 15 MG PO Daily at bedtime 15 July 15, 2022 12:00am September 09, 2022 9:59pm Start: 07-11-2022 End: 07-15-2022 take 7.5 mg by mouth once daily at bedtime Mirtazapine Discontinued 7.5 MG PO Daily at bedtime July 11, 2022 12:00am July 15, 2022 10:17am Multiple Vitamins with Minerals oral tablet (7 sources) Start: 08-18-2022 End: 10-16-2022 take 1 tablet by mouth once daily Multiple Vitamins with Minerals oral tablet ; 1 tab(s) orally once a day supplement Quantity: 30 Refills: 1 Ordered: 18-Aug-2022 Brayden Lopez Start: 18-Aug-2022 End: 16-Oct-2022 Generic Substitution Allowed Start: 06-22-2022 End: 08-20-2022 take 1 tablet by mouth once daily Multiple Vitamins with Minerals oral tablet ; 1 tab(s) orally once a day supplement Quantity: 30 Refills: 1 Ordered: 22-Jun-2022 Damari Hitchcock Start: 22-Jun-2022 End: 20-Aug-2022 Generic Substitution Allowed Start: 02-11-2022 End: 04-11-2022 take 1 tablet by mouth once daily Multiple Vitamins with Minerals oral tablet ; 1 tab(s) orally once a day supplement Quantity: 30 Refills: 1 Ordered: 11-Feb-2022 Taisha Posadas Start: 11-Feb-2022 End: 11-Apr-2022 Generic Substitution Allowed Multivitamin With Folic Acid (Daily-Misael (With Folic Acid)) 400 mcg tablet (10 sources) Start: 09-17-2022 End: 02-11-2023 take 1 tablet by mouth once daily Multivitamin With Folic Acid (Daily-Misael (With Folic Acid)) 400 mcg tablet Discontinued 1 TAB PO Daily September 17, 2022 12:39pm February 11, 2023 1:02pm Start: 09-17-2022 End: 02-11-2023 take 1 tablet by mouth once daily Multivitamin With Folic Acid (Daily-Misael (With Folic Acid)) 400 mcg tablet Discontinued 1 TAB PO Daily September 17, 2022 1:39pm February 11, 2023 2:02pm Start: 09-17-2022 take 1 tablet by sid th once daily Multivitamin With Folic Acid (Daily-Misael (With Folic Acid)) 400 mcg tablet Active 1 TAB PO Daily September 17, 2022 1:39pm Start: 09-09-2022 End: 09-17-2022 take 1 tablet by mouth once daily Multivitamin With Folic Acid (Daily-Misael (With Folic Acid)) 400 mcg tablet Discontinued 1 TAB PO Daily September 09, 2022 12:00am September 17, 2022 12:39pm Start: 09-09-2022 End: 09-17-2022 take 1 tablet by mouth once daily Multivitamin With Folic Acid (Daily-Misael (With Folic Acid)) 400 mcg tablet Discontinued 1 TAB PO Daily September 09, 2022 1:00am September 17, 2022 1:39pm Eiyqujwpsrwg-Ghgw-Tbblz Acid (Certavite-Antioxidant) 18-400 mg-mcg tablet (2 sources) Start: 04-15-2023 End: 04-21-2023 take 1 tablet by mouth once daily Ndchfaztxwbu-Snmq-Sgyhv Acid (Certavite-Antioxidant) 18-400 mg-mcg tablet Discontinued 1 TAB PO Daily April 14, 2023 11:00pm April 21, 2023 10:23am Start: 04-15-2023 End: 04-21-2023 take 1 tablet by mouth once daily Vobhldstzqxt-Lddu-Kakcr Acid (Certavite-Antioxidant) 18-400 mg-mcg tablet Discontinued 1 TAB PO Daily April 15, 2023 12:00am April 21, 2023 11:23am mupirocin 0.02 mg/mg topical ointment (9 sources) RNA Synthetase Inhibitor Antibacterial Start: 09-22-2018 End: 03-28-2019 Mupirocin Discontinued 2 PERCENT TOPICAL Twice daily September 21, 2018 11:00pm March 28, 2019 8:17am Apply to left arm tattoo nicotine 2 mg chewing gum (14 sources) Cholinergic Nicotinic Agonist Start: 02-16-2023 End: 04-15-2023 Nicotine (Polacrilex) Discontinued 2 MG BUCCAL Q2H 60 February 15, 2023 11:00pm April 15, 2023 7:30am Start: 09-17-2022 End: 02-11-2023 Nicotine (Polacrilex) Discon tinued 2 MG BUCCAL Q2H 60 September 17, 2022 12:00am February 11, 2023 1:02pm Start: 06-22-2022 End: 07-21-2022 nicotine 14 mg/24 hr transde rmal film, extended release ; 1 patch transdermal every 24 hours smoking cessation Quantity: 30 Refills: 0 Ordered: 22-Jun-2022 Damari Hitchcock Start: 22-Jun-2022 End: 21-Jul-2022 Generic Substitution Allowed Start: 02-11-2022 End: 03-12-2022 nicotine 14 mg/24 hr transde rmal film, extended release ; 1 patch transdermal every 24 hours smoking cessation Quantity: 30 Refills: 0 Ordered: 11-Feb-2022 Taisha Posadas Start: 11-Feb-2022 End: 12-Mar-2022 Generic Substitution Allowed Start: 06-29-2021 nicotine (GREG DERM CQ) 21 MG/24HR 1 patch Comment on above: Take 1 Each by mouth every 2 hours as needed. 2 ml ondansetron 2 mg/ml injection (1 source) Serotonin-3 Receptor Antagonist Start: 05-02-2019 End: 05-02-2019 ondansetron (ZOFRAN) injection 4 mg OXcarbazepine 150 mg oral tablet (8 sources) Anti-epileptic Agent Start: 07-15-2022 End: 09-09-2022 take 150 mg by mouth twice daily Oxcarbazepine Discontinued 150 MG PO Twice daily 30 July 15, 2022 12:00am September 09, 2022 9:59pm 24 hr paliperidone 9 mg extended release oral tablet (20 sources) Atypical Antipsychotic Start: 02-16-2023 End: 04-21-2023 take 1 tablet by mouth once daily at bedtime Paliperidone (Invega) 9 mg tablet extended release 24 hr Discontinued 9 MG PO Daily at bedtime April 15, 2023 7:32am April 21, 2023 10:23am Start: 07-09-2022 End: 07-22-2022 take 1 tablet by mouth once daily in the evening Paliperidone (Invega) 3 mg Tablet Extended Release 24 Hr Discontinued 3 MG PO Every evening July 09, 2022 12:00am July 15, 2022 10:17am Start: 07-09-2022 End: 07-22-2022 take 1 tablet by mouth once daily in the morning Paliperidone (Invega) 6 mg Tablet Extended Release 24 Hr Discontinued 6 MG PO Every morning July 09, 2022 12:00am July 15, 2022 10:17am pantoprazole 20 mg delayed release oral tablet (20 sources) Proton Pump Inhibitor Start: 03-18-2023 take 1 tablet by mouth once daily, then take 6 tablets by mouth in the morning pantoprazole DR (PROTONIX) 20 mg tablet Take 1 tablet by mouth DAILY (6 AM). 30 tablet 0 03/18/2023 Suspended Start: 06-22-2022 End: 02-11-2023 take 40 mg by mouth once daily Pantoprazole Discontinu ed 40 MG PO Daily September 17, 2022 12:39pm February 11, 2023 1:02pm Start: 02-11-2022 End: 04-11-2022 take 1 tablet by mouth once daily pantoprazole 40 mg oral delayed release tablet ; 1 tab(s) orally once a day GERD Quantity: 30 Refills: 1 Ordered: 11-Feb-2022 Taisha Posadas Start: 11-Feb-2022 End: 11-Apr-2022 Generic Substitution Allowed Comment on above: Take 1 tablet by sid th DAILY (6 AM). predniSONE 20 mg oral tablet (20 sources) Start: 05-31-2019 End: 07-07-2019 take 40 mg by mouth once daily in the morning Prednisone Discontinued 40 MG PO Every morning 10 May 31, 2019 12:00am July 07, 2019 3:44pm administer with food or milk Start: 04-27-2019 End: 04-30-2019 take 50 mg by mouth once daily at mealtime Prednisone Discontinued 50 MG PO Daily 11 14April 26, 2019 11:00pm April 30, 2019 12:33pm administer with food or milk Start: 01-29-2019 End: 03-14-2019 take 50 mg by mouth once daily at mealtime Prednisone Discontinued 50 MG PO Daily 5 5 January 28, 2019 11:00pm March 14, 2019 3:56pm administer with food or milk START 01/30/2019 1000 ml sodium chloride 9 mg/ml injection (1 source) Start: 06-30-2021 End: 06-30-2021 0.9 % sodium chloride infusion thiamine 100 mg oral tablet (20 sources) Start: 06-22-2022 End: 02-11-2023 take 100 mg by mouth once daily Thiamine Hcl (Vitamin B1) Discontinued 100 MG PO Daily September 17, 2022 12:39pm February 11, 2023 1:02pm Start: 02-11-2022 End: 04-11-2022 take 1 tablet by mouth once daily thiamine 100 mg oral tablet ; 1 tab(s) orally once a day supplement Quantity: 30 Refills: 1 Ordered: 11-Feb-2022 Taisha Posadas Start: 11-Feb-2022 End: 11-Apr-2022 Generic Substitution Allowed Start: 06-29-2021 thiamine table t 100 mg tiZANidine 2 mg oral capsule (9 sources) Central alpha-2 Adrenergic Agonist Start: 04-02-2018 End: 06-07-2018 Tizanidine (Zanaflex) 2 mg Capsule Discontinued 2 MG PO every 6 to 8 hours April 01, 2018 11:00pm June 07, 2018 2:51pm topiramate 25 mg oral tablet (20 sources) Start: 08-18-2022 End: 09-22-2022 take 25 mg by mouth twice daily Topiramate Discontinued 25 MG PO Twice daily September 09, 2022 12:00am September 22, 2022 9:18am Start: 07-09-2022 End: 07-22-2022 take 1 tablet by mouth twice daily Topiramate (Topamax) 25 mg Tablet Discontinued 25 MG PO Twice daily July 09, 2022 12:00am July 15, 2022 10:17am traZODone hydrochloride 50 mg oral tablet (3 sources) Serotonin Reuptake Inhibitor Start: 02-16-2023 End: 2023 take 50 mg by mouth once daily at bedtime Trazodone Discontinued 50 MG PO Daily at bedtime February 15, 2023 11:00pm 2023 8:10pm Problems Active Problems Problem Classification Problem Date Documented Da te Episodic/Chronic Abdominal pain (3 sources) Epigastric pain; Translations: [Left upper quadrant pain] Onset: 3 Episodic Administrative/social admission (13 sources) Homeless; Translations: [Homeless] Onset: 3 07-09-2022 Episodic Alcohol-related disorders (17 sources) Alcohol abuse; Translations: [Alcohol abuse, unspecified] Onset: 3 02-05-2022 Chronic Alcohol-related disorders (2 sources) Alcohol use, unspecified with intoxication, uncomplicated; Translations: [Alcohol use, unspecified with intoxication, uncomplicated (CMS/HCC)] Onset: 3 Episodic Anxiety disorders (1 source) Anxiety disorder, unspecified; Translations: [Anxiety disorder, unspecified] Onset: 3 Chronic Cardiac dysrhythmias (10 sources) Tachycardia; Translations: [Tachycardia, unspecified] Onset: 3 07-07-2019 Episodic Chronic obstructive pulmonary disease and bronchiectasis (9 sources) Acute exacerbation of chronic obstructive airways disease; Translations: [Chronic obstructive pulmonary disease with (acute) exacerbation] 05-31-2019 Chronic Diseases of white blood cells (9 sources) Leukocytosis; Translations: [Elevated white blood cell count, unspecified] 04-29-2019 Chronic E Codes: Unspecified (2 sources) Blood alcohol level of 60-79 mg/100 ml; Translations: [Blood alcohol level of 20-39 mg/100 ml] Onset: 3 Episodic Esophageal disorders (2 sources) Gastroesophageal reflux disease; Translations: [Esophageal reflux] 02-08-2022 Chronic Essential hypertension (4 sources) Hypertensive disorder; Translations: [Unspecified essential hypertension] Onset: 3 02-08-2022 Chronic Fluid and electrolyte disorders (9 sources) Dehydration; Translations: [Dehydration] 03-28-2019 Episodic Gastritis and duodenitis (9 sources) Acute gastritis; Translations: [Acute gastritis without bleeding] 05-31-2019 Episodic Gastrointestinal hemorrhage (2 sources) Hematemesis; Translations: [Hematemesis] 02-08-2022 Episodic Headache; including migraine (1 source) Tension-type headache; Translations: [Tension headache] Episodic Headache; including migraine (2 sources) Headache; including migraine 07-03-2021 Comment on above: COVID + SOB HEADACHE Impulse control disorders, NEC (7 sources) Homicidal thoughts; Translations: [Homicidal ideations] 07-17-2022 Episodic Mood disorders (20 sources) Bipolar disorder; Translations: [Bipolar disorder, unspecified] Onset: 02-12-2022 02-06-2022 Chronic Comment on above: DEPRESSION Mood disorders (2 sources) Mood disorders; Translations: [Depression, unspecified] Onset: 07-10-2022 08-13-2022 Nonspecific chest pain (14 sources) Chest pain; Translations: [Chest pain, unspecified] Onset: 03-24-2023 07-02-2021 Episodic Comment on above: CHEST PAIN CHEST PAIN. Other hereditary and degenerative nervous system conditions (1 source) Restless legs; Translations: [Restless legs syndrome] Onset: 03-14-2023 04-23-2023 Chronic Other injuries and conditions due to external causes (1 source) Underdosing of other antiepileptic and sedative-hypnotic drugs, initial encounter; Translations: [Underdosing of antiepileptic and sed-hypntc drugs, init] Onset: 04-06-2023 Episodic Other injuries and conditions due to external causes (1 source) Underdosing of unspecified drugs, medicaments and biological substances, initial encounter; Translations: [Underdosing of unsp drug/meds/biol subst, init] Onset: 03-24-2023 Episodic Other nutritional; endocrine; and metabolic disorders (2 sources) Obese class I; Translations: [Obesity, unspecified] Onset: 06-08-2019 06-08-2019 Chronic Other skin disorders (2 sources) Rash and other nonspecific skin eruption; Translations: [Rash and other nonspecific skin eruption] Onset: 04-28-2023 Episodic Paralysis (2 sources) Cerebral palsy 03-23-2023 Chronic Comment on above: CP Residual codes; unclassified (1 source) Restlessness and agitation; Translations: [Restlessness and agitation] Onset: 07-17-2022 Chronic Residual codes; unclassified (1 source) Paternal alcohol abuse; Translations: [Family history of other condition] 2 Episodic Residual codes; unclassified (4 sources) Hallucinations; Translations: [Hallucinations] 2 Episodic Residual codes; unclassified (9 sources) Difficulty obtaining medication; Translations: [Patient's other noncompliance with medication regimen] 2 Episodic Residual codes; unclassified (9 sources) Altered mental status; Translations: [Altered mental status, unspecified] 9 Episodic Residual codes; unclassified (8 sources) Insomnia; Translations: [Insomnia, unspecified] 3 Episodic Residual codes; unclassified (2 sources) Tobacco use and exposure - finding; Translations: [Tobacco use] 9 Episodic Residual codes; unclassified (1 source) Tobacco use; Translations: [Tobacco use] Onset: 04-06-2023 Episodic Residual codes; unclassified (2 sources) Auditory hallucinations; Translations: [Auditory hallucinations] Onset: 07-01-2022 Episodic Schizophrenia and other psychotic disorders (20 sources) Psychotic disorder; Translations: [Unspecified psychosis not due to a substance or known physiological condition] Onset: 06-28-2021 Chronic Schizophrenia and other psychotic disorders (9 sources) Brief psychotic disorder; Translations: [Acute psychosis] 3 Episodic Spondylosis; intervertebral disc disorders; other back problems (4 sources) Displacement of lumbar intervertebral disc without myelopathy; Translations: [Other intervertebral disc displacement, lumbar region] Onset: 10-24-2014 5 Chronic Spondylosis; intervertebral disc disorders; other back problems (20 sources) Chronic low back pain; Translations: [Acute exacerbation of chronic low back pain] Onset: 06-16-2019 9 Episodic Substance-related disorders (20 sources) Methamphetamine abuse; Translations: [Amphetamine or related acting sympathomimetic abuse, unspecified] Onset: 06-16-2019 1 Chronic Substance-related disorders (2 sources) Drug-induced intensive care psychosis ; Translations: [Unspecified drug-induced mental disorder] 1 Episodic Unclassified (1 source) Substance induced mood disorder 2 Unclassified (1 source) Alcohol abuse by father 2 Unclassified (2 sources) YOAN F30.9 2 Comment on above: YOAN F30.9 Unclassified (1 source) Alcohol use disorder, severe, dependence 022 Unclassified (2 sources) CONTINUOUS VISUAL HALLUCINATIONS R44.1 3 Comment on above: CONTINUOUS VISUAL MENDOZA LLUCINATIONS R44.1 Unclassified (1 source) Alcohol abuse, continuous 08-13-2022 Unclassified (1 source) Continuous visual hallucinations 08-13-2022 Unclassified (4 sources) BIPOLAR SI 08-17-2022 Comment on above: BIPOLAR SI Unclassified (1 source) Patient's other noncompl with meds regimen for other reason; Translations: [Patient's other noncompl with meds regimen for other reason] Onset: 04-06-2023 Unclassified (1 source) Contact with and (suspected) exposure to COVID-19; Translations: [Contact with and (suspected) exposure to COVID-19] Onset: 04-06-2023 Unclassified (1 source) Other stimulant use, unspecified, in remission; Translations: [Other stimulant use, unspecified, in remission] Onset: 04-06-2023 Unclassified (1 source) Opioid use, unspecified, in remission; Translations: [Opioid use, unspecified, in remission] Onset: 04-06-2023 Unclassified (1 source) Personal history of suicidal behavior; Translations: [Personal history of suicidal behavior] Onset: 04-06-2023 Unclassified (1 source) Alcohol abuse with withdrawal delirium; Translations: [Alcohol abuse with withdrawal delirium] Onset: 08-17-2022 Unclassified (1 source) Homelessness unspecified; Translations: [Homelessness unspecified] Onset: 08-17-2022 Unclassified (1 source) Alcohol use, unspecified with withdrawal with perceptual disturbance (CMS/HCC); Translations: [Alcohol use, unspecified with withdrawal with perceptual disturbance (CMS/HCC)] Onset: 04-29-2023 Unclassified (1 source) Poisoning by unspecified drugs, medicaments and biological substances, intentional self-harm, initial encounter; Translations: [Poisoning by unspecified drugs, medicaments and biological substances, intentional self-harm, initial encounter] Onset: 07-10-2022 Unclassified (1 source) Encounter for examination and observation for other specified reasons; Translations: [Encounter for examination and observation for other specified reasons] Onset: 07-09-2022 Viral infection (2 sources) Disease caused by 2019-nCoV; Translations: [COVID-19] Episodic Viral infection (3 sources) Disease caused by 2019-nCoV 07-02-2021 Past or Other Problems Problem Classification Problem Date Documented Da te Episodic/Chronic Blindness and vision defects (4 sources) Visual hallucinations; Translations: [Psychophysical visual disturbances] Onset: 07-01-2022 08-13-2022 Episodic Other aftercare (1 source) Other [facility] (current) drug therapy; Translations: [Other equipment [employer] (current) drug therapy] Onset: 07-01-2022 Episodic Other connective tissue disease (2 sources) History of cervical spine fusion; Translations: [Arthrodesis status] Onset: 06-16-2019 06-16-2019 Episodic Other nervous system disorders (2 sources) Paresthesia of hand ; Translations: [Anesthesia of skin] Onset: 06-16-2019 06-16-2019 Episodic Residual codes; unclassified (6 sources) Insomnia, unspecified; Translations: [Insomnia, unspecified] Onset: 07-16-2022 02-11-2023 Episodic Residual codes; unclassified (3 sources) Auditory hallucinations; Translations: [Hallucinations] Onset: 08-25-2022 03-23-2023 Episodic Sprains and strains (2 sources) Lumbar sprain; Translations: [Sprain of ligaments of lumbar spine, initial encounter] Onset: 10-24-2014 10-24-2014 Episodic Suicide and intentional self-inflicted injury (20 sources) Suicidal thoughts; Translations: [Suicidal ideation] Onset: 07-11-2022 02-05-2022 Episodic Comment on above: SUICIDAL THOUGHTS Unclassified (1 source) ANXIETY DEPRESSIVE 02-05-2022 Comment on above: ANXIETY DEPRESSIVE Unclassified (1 source) PSYCH 06-16-2022 Comment on above: PSYCH Unclassified (4 sources) PSYCH EVAL 06-17-2022 Comment on above: PSYCH EVAL Unclassified (1 source) Alcohol use, unspecified with withdrawal with perceptual disturbance (CMS/HCC); Translations: [Alcohol use, unspecified with withdrawal with perceptual disturbance (CMS/HCC)] Onset: 04-28-2023 Results Test Name Value Interpretation Reference Range Facil ity Cholesterol [Mass/volume] in Serum or PlasmaOrdered By: Paulo Strauss on 05-28-2023 Cholesterol [Mass/Vol] 135 mg/dL 140-200 [facility] Comment on above: Chol less than 200 m g/dl low riskChol 201-239 mg/dl borderline riskChol 240 mg/dl and greater high risk Cholesterol in LDL Calc [Mas s/Vol]Ordered By: Paulo Strauss on 05-28-2023 Cholesterol in LDL [Mass/Vol] 72 mg/dL 0-100 [facility] Comment on above: LDL ATP III CLASSIFI CATIONLDL less than 100 mg/dL OptimalLDL 100-129 mg/dL Near or above optimalLDL 130-159 mg/dL Borderline highLDL 160-189 mg/dL HighLDL greater than 189 mg/dL Very high Cholesterol in VLDL Calc [Ma ss/Vol]Ordered By: Paulo Strauss on 05-28-2023 Cholesterol in VLDL [Mass/Vol] 15 mg/dL [facility] Free T4 (Free Thyroxine)on 07-28-2022 Free T4 [Mass/Vol] 0.99 ng/dL Normal 0.61-1.12 [facility] Comment on above: Performed By: #### E JOHN, CBC, CMP #### [facility] [address] [id number] [facility] Lipid Panelon 05-28-2023 Cholesterol [Mass/Vol] 135 mg/dL Low 140-200 [facility] Comment on above: Result Comment: Chol less than 200 mg/dl low risk Chol 201-239 mg/dl borderline risk Chol 240 mg/dl and greater high risk Performed By: #### E JOHN, CBC, CMP #### [facility] [address] [place] [address] [place] Cholesterol in HDL [Mass/Vol] 47 mg/dL Normal 23-92 [facility] Comment on above: Result Comment: HDL CHOL ATP-III CLASSIFICATION Cardiovascular Risk HDL > or equal to 60 mg/dL LOW HDL < 40 mg/dL HIGH Performed By: #### E JOHN, CBC, CMP #### [facility] [address] [place] [address] [place] Cholesterol.total/Cholestero l in HDL [Mass ratio] 2.9 {ratio} Normal <5.0 [facility] Comment on above: Performed By: #### E JOHN, CBC, CMP #### [facility] [address] LDL Cholesterol,Calculated 72 mg/dL Normal 0-100 [facility] Comment on above: Result Comment: LDL ATP III CLASSIFICATION LDL less than 100 mg/dL Optimal LDL 100-129 mg/dL Near or above optimal LDL 130-159 mg/dL Borderline high LDL 160-189 mg/dL High LDL greater than 189 mg/dL Very high Performed By: #### E JOHN, CBC, CMP #### [facility] [address] Triglyceride w/Reflex 78 mg/dL Normal 0-149 [facility] Comment on above: Result Comment: TRIG ATP III CLASSIFICATION TRIG less than 150 mg/dL Normal TRIG 150-199 mg/dL Borderline high TRIG 200-500 mg/dL High TRIG greater than 500 mg/dL Very high Standard traceable to the Center for Disease Conrtrol and Prevention (CDC) test method. Performed By: #### E JOHN CBC, CMP #### [facility] [address] VLDL CHOLESTEROL 15 mg/dL Normal [facility] Comment on above: Performed By: #### E JOHN CBC, CMP #### [facility] [address] Serum or plasma high density lipoprotein (HDL) cholesterol measurementOrdered By: Paulo Strauss on 05-28-2023 Cholesterol in HDL [Mass/Vol] 47 mg/dL 23-92 [facility] Comment on above: HDL CHOL ATP-III CLA SSIFICATION Cardiovascular RiskHDL > or equal to 60 mg/dL LOWHDL < 40 mg/dL HIGH Serum or plasma total choles terol/high density lipoprotein (HDL) cholesterol mass ratOrdered By: Paulo Strauss on 05-28-2023 Cholesterol.total/Cholestero l in HDL [Mass ratio] 2.9 {ratio} <5.0 [facility] Thyroid Stim Hormone w/Rflxo n 05-28-2023 Thyroid Stim Hormone w/Rflx 0.41 u[iU]/mL Low 0.45- 5.33 [facility] Comment on above: Performed By: #### E JOHN, CBC, CMP #### [facility] [address] Thyrotropin [Units/volume] i n Serum or PlasmaOrdered By: Paulo Strauss on 05-28-2023 TSH Qn 0.41 m[IU]/L 0.45-5.33 [facility] Thyroxine (T4) free [Mass/vo lume] in Serum or PlasmaOrdered By: Paulo Strauss on 05-28-2023 Free T4 [Mass/Vol] 0.99 ng/dL 0.61-1.12 [facility] Triglyceride [Mass/volume] i n Serum or PlasmaOrdered By: Paulo Strauss on 05-28-2023 Triglyceride [Mass/Vol] 78 mg/dL 0-149 [facility] Comment on above: TRIG ATP III CLASSIF ICATIONTRIG less than 150 mg/dL NormalTRIG 150-199 mg/dL Borderline highTRIG 200-500 mg/dL High TRIG greater than 500 mg/dL Very highStandard traceable to the Center for Disease Conrtrol and Prevention (CDC) test method. Vitamin D 25 Hydroxy Totalon 05-28-2023 Vitamin D 25 Hydroxy Total 35.6 ng/mL Normal 30-100 [facility] Comment on above: Result Comment: JIM MIN D STATUS 25(OH)VITAMIN D RANGE (ng/mL) Deficient <20 Insufficient 20 to <30 Sufficient 30 to 100 Reference: Madeline MF,[place] NC, Chris MENDOZA, et al. Evaluation,treatment, and prevention of vitamin D deficiency; an Endocrine Society clinical practice guideline. JCEM. 2010; 96(7):1911-30. PERFORMED BY: [facility] [address] [place] [address] PATHOLOGIST ALGOLOGIST TIMUR PHILLIPS M.D. Performed By: #### C K #### [facility] [address] Vitamin D+Metabolites [Mass/ volume] in Serum or PlasmaOrdered By: Paulo Strauss on 05-28-2023 Vitamin D+Metabolites [Mass/Vol] 35.6 ng/mL 30- 100 [facility] Comment on above: VITAMIN D STATUS 25( [place])VITAMIN D RANGE (ng/mL) Deficient <20 Insufficient 20 to <30Sufficient 30 to 100Reference: Madeline MF,[place] LOMBARDO, Chris MENDOZA, et al. Evaluation,treatment, and prevention of vitamin D deficiency; an Endocrine Society clinical practice guideline. JCEM. 2010; 96(7):1911-30. Basic metabolic 2000 panelon 05-01-2022 Anion gap [Moles/Vol] 12 mmol/L Normal 10-20 [facility] Comment on above: Performed By: #### 8 7428-9 #### DONNELL Pardo ([id number]) [facility] ([facility]) [address] [place] [address] 05769 Calcium [Mass/Vol] 8.9 mg/dL Normal 8.6-10.3 [facility] Comment on above: Performed By: #### 8 7428-9 #### DONNELL Pardo ([id number]) [facility]) [address] [place] [address] 54145 Chloride [Moles/Vol] 106 mmol/L Normal 98-107 [facility] Comment on above: Performed By: #### 8 7428-9 #### DONNELL Pardo ([id number]) [facility]) [address] [place] [address] 36245 CO2 [Moles/Vol] 25 mmol/L Normal 21-32 [facility] Comment on above: Performed By: #### 8 7428-9 #### DONNELL Parod ([id number]) [facility] ([facility]) [address] [place] [address] 62498 Creatinine [Mass/Vol] 1.14 mg/dL Normal 0.50-1.30 [facility] Comment on above: Performed By: #### 8 7428-9 #### DONNELL Pardo ([id number]) [facility]) [address] [place] [address] 74492 GFR/1.73 sq M.predicted MDRD (S/P/Bld) [Vol rate/Area] 78 mL/min/1.73m*2 Normal >60 [facility] Comment on above: Result Comment: Calculations of estimate d GFR are performed using the 2020 CKD-EPI Study Refit equation without the race variable for the IDMS-Traceable creatinine methods. https://jasn.asnjournals.org/content//ASN.3091227926 Performed By: #### 8 7428-9 #### DONNELL Pardo ([id number]) [facility] ([facility]) [address] [place] [address] 67409 Glucose [Mass/Vol] 105 mg/dL High 74-99 [facility] Comment on above: Performed By: #### 8 7428-9 #### DONNELL Pardo ([id number]) [facility]) [address] [place] [address] 09972 Potassium [Moles/Vol] 3.9 mmol/L Normal 3.5-5.3 [facility] Comment on above: Performed By: #### 8 7428-9 #### DONNELL Pardo ([id number]) [facility]) [address] [place] [address] 41847 Sodium [Moles/Vol] 139 mmol/L Normal 136-145 [facility] Comment on above: Performed By: #### 8 7428-9 #### DONNELL Pardo ([id number]) [facility]) [address] [place] [address] 71114 Urea nitrogen [Mass/Vol] 18 mg/dL Normal 6-23 [facility] Comment on above: Performed By: #### 8 7428-9 #### DONNELL Pardo ([id number]) [facility]) [address] [place] [address] 18655 CBC panel Auto (Bld)on 05-01 Erythrocyte distribution wid th (RBC) [Ratio] 12.5 % Normal 11.5-14.5 [facility] Comment on above: Performed By: #### 8 7428-9 #### DONNELL Pardo ([id number]) [facility]) [address] [place] [address] 71547 Hematocrit (Bld) [Volume fraction] 44.8 % Normal 41.0-52.0 [facility] Comment on above: Performed By: #### 8 7428-9 #### DONNELL Pardo ([id number]) [facility]) [address] [place] [address] Hemoglobin (Bld) [Mass/Vol] 14.8 g/dL Normal 13.5-17. 5 [facility] Comment on above: Performed By: #### 8 7428-9 #### DONNELL Pardo ([id number]) [facility]) [address] [place] [address] 59428 MCH (RBC) [Entitic mass] 30.1 pg Normal 26.0-34.0 [facility] Comment on above: Performed By: #### 8 7428-9 #### DONNELL Pardo ([id number]) [facility]) [address] [place] [address] 46941 MCHC (RBC) [Mass/Vol] 33.0 g/dL Normal 32.0-36.0 [facility] Comment on above: Performed By: #### 8 7428-9 #### DONNELL Pardo ([id number]) [facility]) [address] [place] [address] 53799 MCV (RBC) [Entitic vol] 91 fL Normal 80-100 [facility] Comment on above: Performed By: #### 8 7428-9 #### DONNELL Pardo ([id number]) [facility]) [address] [place] [address] 47967 Nucleated RBC/100 WBC (Bld) [Ratio] 0.0 /100 WBCs Normal 0.0-0.0 [facility] Comment on above: Performed By: #### 8 7428-9 #### DONNELL Pardo ([id number]) [facility]) [address] [place] [address] 61336 Platelet mean volume (Bld) [Entitic vol] 9.3 fL Normal 7.5-11.5 [facility] Comment on above: Performed By: #### 8 7428-9 #### DONNELL Pardo ([id number]) [facility]) [address] [place] [address] 05891 Platelets (Bld) [#/Vol] 237 x10*3/uL Normal 150-450 [facility] Comment on above: Performed By: #### 8 7428-9 #### DONNELL Pardo ([id number]) [facility] ([facility]) [address] [place] [address] 59013 RBC (Bld) [#/Vol] 4.92 x10*6/uL Normal 4.50-5.90 [facility] Comment on above: Performed By: #### 8 7428-9 #### DONNELL Pardo ([id number]) [facility] ([facility]) [address] [place] [address] 31179 WBC (Bld) [#/Vol] 8.5 x10*3/uL Normal 4.4-11.3 [facility] Comment on above: Performed By: #### 8 7428-9 #### DONNELL Pardo ([id number]) [facility]) [address] [place] [address] 72069 Magnesiumon 05-01-2023 Magnesium [Mass/Vol] 1.96 mg/dL Normal 1.60-2.40 [facility] Comment on above: Performed By: #### 8 7428-9 #### DONNELL Pardo ([id number]) [facility]) [address] [place] [address] 23572 Basic metabolic 2000 panelon 04-30-2023 Anion gap [Moles/Vol] 13 mmol/L Normal 10-20 [facility] Comment on above: Performed By: #### 8 7428-9 #### DONNELL Pardo ([id number]) [facility]) [address] [place] [address] 57263 Calcium [Mass/Vol] 9.2 mg/dL Normal 8.6-10.3 [facility] Comment on above: Performed By: #### 8 7428-9 #### DONNELL Pardo ([id number]) [facility]) [address] [place] [address] 02573 Chloride [Moles/Vol] 106 mmol/L Normal 98-107 [facility] Comment on above: Performed By: #### 8 7428-9 #### DONNELL Pardo ([id number]) [facility]) [address] [place] [address] 20310 CO2 [Moles/Vol] 24 mmol/L Normal 21-32 [facility] Comment on above: Performed By: #### 8 7428-9 #### DONNELL Pardo ([id number]) [facility]) [address] [place] [address] 74778 Creatinine [Mass/Vol] 1.07 mg/dL Normal 0.50-1.30 [facility] Comment on above: Performed By: #### 8 7428-9 #### DONNELL Pardo ([id number]) [facility]) [address] [place] [address] 82480 GFR/1.73 sq M.predicted MDRD (S/P/Bld) [Vol rate/Area] 85 mL/min/1.73m*2 Normal >60 [facility] Comment on above: Result Comment: Calculations of estimate d GFR are performed using the 2020 CKD-EPI Study Refit equation without the race variable for the IDMS-Traceable creatinine methods. https://jasn.asnjournals.org/content/early/ASN.8860041865 Performed By: #### 8 7428-9 #### DONNELL Pardo ([id number]) [facility]) [address] [place] [address] 73865 Glucose [Mass/Vol] 76 mg/dL Normal 74-99 [facility] Comment on above: Performed By: #### 8 7428-9 #### DONNELL Pardo ([id number]) [facility]) [address] [place] [address] 64563 Potassium [Moles/Vol] 3.9 mmol/L Normal 3.5-5.3 [facility] Comment on above: Performed By: #### 8 7428-9 #### DONNELL Parod ([id number]) [facility]) [address] [place] [address] 91910 Sodium [Moles/Vol] 139 mmol/L Normal 136-145 [facility] Comment on above: Performed By: #### 8 7428-9 #### DONNELL Pardo ([id number]) [facility]) [address] [place] [address] 22723 Urea nitrogen [Mass/Vol] 20 mg/dL Normal 6-23 [facility] Comment on above: Performed By: #### 8 7428-9 #### DONNELL Pardo ([id number]) [facility]) [address] [place] [address] 41872 CBC panel Auto (Bld)on 04-30 Erythrocyte distribution wid th (RBC) [Ratio] 12.4 % Normal 11.5-14.5 [facility] Comment on above: Performed By: #### 8 7428-9 #### DONNELL Pardo ([id number]) [facility]) [address] [place] [address] 80470 Hematocrit (Bld) [Volume fraction] 43.4 % Normal 41.0-52.0 [facility] Comment on above: Performed By: #### 8 7428-9 #### DONNELL Pardo ([id number]) [facility]) [address] [place] [address] 04367 Hemoglobin (Bld) [Mass/Vol] 14.3 g/dL Normal 13.5-17. 5 [facility] Comment on above: Performed By: #### 8 7428-9 #### DONNELL Pardo ([id number]) [facility]) [address] [place] [address] 69945 MCH (RBC) [Entitic mass] 30.2 pg Normal 26.0-34.0 [facility] Comment on above: Performed By: #### 8 7428-9 #### DONNELL Pardo ([id number]) [facility]) [address] [place] [address] 20914 MCHC (RBC) [Mass/Vol] 32.9 g/dL Normal 32.0-36.0 [facility] Comment on above: Performed By: #### 8 7428-9 #### DONNELL Pardo ([id number]) [facility]) [address] [place] [address] 65750 MCV (RBC) [Entitic vol] 92 fL Normal 80-100 [facility] Comment on above: Performed By: #### 8 7428-9 #### DONNELL Pardo ([id number]) [facility]) [address] [place] [address] 73916 Nucleated RBC/100 WBC (Bld) [Ratio] 0.0 /100 WBCs Normal 0.0-0.0 [facility] Comment on above: Performed By: #### 8 7428-9 #### DONENLL Pardo ([id number]) [facility]) [address] [place] [address] 35615 Platelet mean volume (Bld) [Entitic vol] 9.5 fL Normal 7.5-11.5 [facility] Comment on above: Performed By: #### 8 7428-9 #### DONNELL Pardo ([id number]) [facility]) [address] [place] [address] 61806 Platelets (Bld) [#/Vol] 244 x10*3/uL Normal 150-450 [facility] Comment on above: Performed By: #### 8 7428-9 #### DONNELL Pardo ([id number]) [facility]) [address] [place] [address] 35054 RBC (Bld) [#/Vol] 4.73 x10*6/uL Normal 4.50-5.90 [facility] Comment on above: Performed By: #### 8 7428-9 #### DONNELL Pardo ([id number]) [facility]) [address] [place] [address] 36677 WBC (Bld) [#/Vol] 8.4 x10*3/uL Normal 4.4-11.3 [facility] Comment on above: Performed By: #### 8 7428-9 #### DONNELL Pardo ([id number]) [facility]) [address] [place] [address] 65745 Magnesiumon 04-30-2023 Magnesium [Mass/Vol] 1.66 mg/dL Normal 1.60-2.40 [facility] Comment on above: Performed By: #### 8 7428-9 #### DONNELL Pardo ([id number]) [facility]) [address] [place] [address] 32278 Basic metabolic 2000 panelon 04-29-2023 Anion gap [Moles/Vol] 10 mmol/L Normal 10-20 [facility] Comment on above: Performed By: #### 8 7428-9 #### DONNELL Pardo ([id number]) [facility]) [address] [place] [address] 20457 Calcium [Mass/Vol] 9.0 mg/dL Normal 8.6-10.3 [facility] Comment on above: Performed By: #### 8 7428-9 #### DONNELL Pardo ([id number]) [facility]) [address] [place] [address] 08807 Chloride [Moles/Vol] 108 mmol/L High 98-107 [facility] Comment on above: Performed By: #### 8 7428-9 #### DONNELL Pardo ([id number]) [facility]) [address] [place] [address] 19138 CO2 [Moles/Vol] 25 mmol/L Normal 21-32 [facility] Comment on above: Performed By: #### 8 7428-9 #### DONNELL Pardo ([id number]) [facility]) [address] [place] [address] 34628 Creatinine [Mass/Vol] 1.16 mg/dL Normal 0.50-1.30 [facility] Comment on above: Performed By: #### 8 7428-9 #### DONNELL Pardo ([id number]) [facility]) [address] [place] [address] 35797 GFR/1.73 sq M.predicted MDRD (S/P/Bld) [Vol rate/Area] 77 mL/min/1.73m*2 Normal >60 [facility] Comment on above: Result Comment: Calculations of estimate d GFR are performed using the 2020 CKD-EPI Study Refit equation without the race variable for the IDMS-Traceable creatinine methods. https://jasn.asnjournals.org/content/early//ASN.1030722876 Performed By: #### 8 7428-9 #### DONNELL Pardo ([id number]) [facility]) [address] [place] [address] 27467 Glucose [Mass/Vol] 82 mg/dL Normal 74-99 [facility] Comment on above: Performed By: #### 8 7428-9 #### DONNELL Pardo ([id number]) [facility]) [address] [place] [address] 00206 Potassium [Moles/Vol] 3.9 mmol/L Normal 3.5-5.3 [facility] Comment on above: Performed By: #### 8 7428-9 #### DONNELL Pardo ([id number]) [facility]) [address] [place] [address] 35591 Sodium [Moles/Vol] 139 mmol/L Normal 136-145 [facility] Comment on above: Performed By: #### 8 7428-9 #### DONNELL Pardo ([id number]) [facility]) [address] [place] [address] 24316 Urea nitrogen [Mass/Vol] 26 mg/dL High 6-23 [facility] Comment on above: Performed By: #### 8 7428-9 #### DONNELL Pardo ([id number]) [facility]) [address] [place] [address] 29263 Magnesiumon 04-29-2023 Magnesium [Mass/Vol] 1.77 mg/dL Normal 1.60-2.40 [facility] Comment on above: Performed By: #### 8 7428-9 #### DONNELL Pardo ([id number]) [facility]) [address] [place] [address] 59591 ACUTE TOXICOLOGY PANEL, BLOO Don 04-28-2023 Acetaminophen [Mass/Vol] ug/mL Normal 10.0-30.0 [facility] Comment on above: Performed By: #### D RUBL #### DONNELL Pardo ([id number]) [facility]) [address] [place] [address] 66744 Ethanol [Mass/Vol] mg/dL Normal <=10 [facility] Comment on above: Performed By: #### D RUBL #### DONNELL Pardo ([id number]) [facility]) [address] [place] [address] 49933 Salicylates [Mass/Vol] mg/dL Normal 4-20 [facility] Comment on above: Performed By: #### D RUBL #### DONNELL Pardo ([id number]) [facility]) [address] [place] [address] 17407 CBC W Auto Differential pane l (Bld)on 04-28-2023 Basophils (Bld) [#/Vol] 0.03 x10*3/uL Normal 0.00-0.10 [facility] Comment on above: Performed By: #### 5 7021-8 #### DONNELL Pardo ([id number]) [facility]) [address] [place] [address] 32443 Basophils/100 WBC (Bld) 0.3 % Normal 0.0-2.0 [facility] Comment on above: Performed By: #### 5 7021-8 #### DONNELL Pardo ([id number]) [facility]) [address] [place] [address] 97983 Eosinophils (Bld) [#/Vol] 0.04 x10*3/uL Normal 0.00-0. 70 [facility] Comment on above: Performed By: #### 5 7021-8 #### DONNELL Pardo ([id number]) [facility]) [address] [place] [address] 00484 Eosinophils/100 WBC (Bld) 0.3 % Normal 0.0-6.0 [facility] Comment on above: Performed By: #### 5 7021-8 #### DONNELL Pardo ([id number]) [facility]) [address] [place] [address] 10522 Erythrocyte distribution wid th (RBC) [Ratio] 12.0 % Normal 11.5-14.5 [facility] Comment on above: Performed By: #### 5 7021-8 #### DONNELL Pardo ([id number]) [facility]) [address] [place] [address] 37289 Hematocrit (Bld) [Volume fraction] 44.0 % Normal 41.0-52.0 [facility] Comment on above: Performed By: #### 5 7021-8 #### DONNELL Pardo ([id number]) [facility]) [address] [place] [address] 88407 Hemoglobin (Bld) [Mass/Vol] 15.4 g/dL Normal 13.5-17. 5 [facility] Comment on above: Performed By: #### 5 7021-8 #### DONNELL Pardo ([id number]) [facility]) [address] [place] [address] 70303 Immature granulocytes (Bld) [#/Vol] 0.04 x10*3/uL Normal 0.00-0.70 [facility] Comment on above: Performed By: #### 5 7021-8 #### DONNELL Pardo ([id number]) [facility]) [address] [place] [address] 04879 Immature granulocytes/100 WBC (Bld) 0.3 % Normal 0.0-0.9 [facility] Comment on above: Result Comment: Beatriz ture Granulocyte Count (IG) includes promyelocytes, myelocytes and metamyelocytes but does not include bands. Percent differential counts (%) should be interpreted in the context of the absolute cell counts (cells/UL). Performed By: #### 5 7021-8 #### DONNELL Pardo ([id number]) [facility]) [address] [place] [address] 25402 Lymphocytes (Bld) [#/Vol] 1.05 x10*3/uL Low 1.20-4. 80 [facility] Comment on above: Performed By: #### 5 7021-8 #### DONNELL Pardo ([id number]) [facility] ([facility]) [address] [place] [address] 02453 Lymphocytes/100 WBC (Bld) 9.2 % Normal 13.0-44.0 [facility] Comment on above: Performed By: #### 5 7021-8 #### DONNELL Pardo ([id number]) [facility]) [address] [place] [address] 75143 MCH (RBC) [Entitic mass] 30.9 pg Normal 26.0-34.0 [facility] Comment on above: Performed By: #### 5 7021-8 #### DONNELL Pardo ([id number]) [facility]) [address] [place] [address] 63356 MCHC (RBC) [Mass/Vol] 35.0 g/dL Normal 32.0-36.0 [facility] Comment on above: Performed By: #### 5 7021-8 #### DONNELL Pardo ([id number]) [facility]) [address] [place] [address] 43822 MCV (RBC) [Entitic vol] 88 fL Normal 80-100 [facility] Comment on above: Performed By: #### 5 7021-8 #### DONNELL Pardo ([id number]) [facility]) [address] [place] [address] 02108 Monocytes (Bld) [#/Vol] 0.74 x10*3/uL Normal 0.10-1.00 [facility] Comment on above: Performed By: #### 5 7021-8 #### DONNELL Pardo ([id number]) [facility]) [address] [place] [address] 07650 Monocytes/100 WBC (Bld) 6.5 % Normal 2.0-10.0 [facility] Comment on above: Performed By: #### 5 7021-8 #### DONNELL Pardo ([id number]) [facility] ([facility]) [address] [place] [address] 20850 Neutrophils (Bld) [#/Vol] 9.57 x10*3/uL High 1.20-7. 70 [facility] Comment on above: Result Comment: Perc ent differential counts (%) should be interpreted in the context of the absolute cell counts (cells/uL). Performed By: #### 5 7021-8 #### DONNELL Pardo ([id number]) [facility] ([facility]) [address] [place] [address] 55561 Neutrophils/100 WBC (Bld) 83.4 % Normal 40.0-80.0 [facility] Comment on above: Performed By: #### 5 7021-8 #### DONNELL Pardo ([id number]) [facility] ([facility]) [address] [place] [address] 51855 Nucleated RBC/100 WBC (Bld) [Ratio] 0.0 /100 WBCs Normal 0.0-0.0 [facility] Comment on above: Performed By: #### 5 7021-8 #### DONNELL Pardo ([id number]) [facility] ([facility]) [address] [place] [address] 62134 Platelet mean volume (Bld) [Entitic vol] 9.4 fL Normal 7.5-11.5 [facility] Comment on above: Performed By: #### 5 7021-8 #### DONNELL Pardo ([id number]) [facility] [place] [place] [address] [place] [address] 09699 Platelets (Bld) [#/Vol] 251 x10*3/uL Normal 150-450 [facility] Comment on above: Performed By: #### 5 7021-8 #### DONNELL Pardo ([id number]) [facility] [place] [place] [address] [place] [address] 10501 RBC (Bld) [#/Vol] 4.98 x10*6/uL Normal 4.50-5.90 [facility] Comment on above: Performed By: #### 5 7021-8 #### DONNELL Pardo ([id number]) [facility] ([facility]) [address] [place] [address] 46376 WBC (Bld) [#/Vol] 11.5 x10*3/uL High 4.4-11.3 [facility] Comment on above: Performed By: #### 5 7021-8 #### DONNELL Pardo ([id number]) [facility] ([facility]) [address] [place] [address] 81946 Comprehensive metabolic 2000 panelon 04-28-2023 Albumin BCP dye [Mass/Vol] 4.6 g/dL Normal 3.4-5.0 [facility] Comment on above: Performed By: #### 2 4323-8 #### DONNELL Pardo ([id number]) [facility] ([facility]) [address] [place] [address] 77206 ALP [Catalytic activity/Vol] 82 U/L Normal 33-120 [facility] Comment on above: Performed By: #### 2 4323-8 #### DONNELL Pardo ([id number]) [facility] ([facility]) [address] [place] [address] 38933 ALT With P-5'-P [Catalytic activity/Vol] 26 U/L Normal 10-52 [facility] Comment on above: Result Comment: Yumi ents treated with Sulfasalazine may generate falsely decreased results for ALT. Performed By: #### 2 4323-8 #### DONNELL Pardo ([id number]) [facility] ([facility]) [address] [place] [address] 65279 Anion gap [Moles/Vol] 17 mmol/L Normal 10-20 [facility] Comment on above: Performed By: #### 2 4323-8 #### DONNELL Pardo ([id number]) [facility] ([facility]) [address] [place] [address] 70765 AST With P-5'-P [Catalytic activity/Vol] 23 U/L Normal 9-39 [facility] Comment on above: Performed By: #### 2 4323-8 #### DONNELL Pardo ([id number]) [facility] ([facility]) [address] [place] [address] 99179 Bilirubin [Mass/Vol] 0.5 mg/dL Normal 0.0-1.2 [facility] Comment on above: Performed By: #### 2 4323-8 #### DONNELL Pardo ([id number]) [facility] ([facility]) [address] [place] [address] 66611 Calcium [Mass/Vol] 9.7 mg/dL Normal 8.6-10.3 [facility] Comment on above: Performed By: #### 2 4323-8 #### DONNELL Pardo ([id number]) [facility] ([facility]) [address] [place] [address] Chloride [Moles/Vol] 100 mmol/L Normal 98-107 [facility] Comment on above: Performed By: #### 2 4323-8 #### DONNELL Pardo ([id number]) [facility] ([facility]) [address] [place] [address] CO2 [Moles/Vol] 22 mmol/L Normal 21-32 [facility] Comment on above: Performed By: #### 2 4323-8 #### DONNELL Pardo ([id number]) [facility] ([facility]) [address] [place] [address] 12372 Creatinine [Mass/Vol] 1.37 mg/dL High 0.50-1.30 [facility] Comment on above: Performed By: #### 2 4323-8 #### DONNELL Pardo ([id number]) [facility] ([facility]) [address] [place] [address] 08386 GFR/1.73 sq M.predicted MDRD (S/P/Bld) [Vol rate/Area] 63 mL/min/1.73m*2 Normal >60 [facility] Comment on above: Result Comment: Calculations of estimate d GFR are performed using the 2020 CKD-EPI Study Refit equation without the race variable for the IDMS-Traceable creatinine methods. https://jasn.asnjournals.org/content/early/ASN.7854197957 Performed By: #### 2 4323-8 #### DONNELL Pardo ([id number]) [facility] ([facility]) [address] [place] [address] 39914 Glucose [Mass/Vol] 85 mg/dL Normal 74-99 [facility] Comment on above: Performed By: #### 2 4323-8 #### DONNELL Pardo ([id number]) [facility] ([facility]) [address] [place] [address] 86735 Potassium [Moles/Vol] 4.2 mmol/L Normal 3.5-5.3 [facility] Comment on above: Performed By: #### 2 4323-8 #### DONNELL Pardo ([id number]) [facility] ([facility]) [address] [place] [address] 65078 Protein [Mass/Vol] 7.7 g/dL Normal 6.4-8.2 [facility] Comment on above: Performed By: #### 2 4323-8 #### DONNELL Pardo ([id number]) [facility] ([facility]) [address] [place] [address] 51112 Sodium [Moles/Vol] 135 mmol/L Low 136-145 [facility] Comment on above: Performed By: #### 2 4323-8 #### DONNELL Pardo ([id number]) [facility] ([facility]) [address] [place] [address] 99353 Urea nitrogen [Mass/Vol] 24 mg/dL High 6-23 [facility] Comment on above: Performed By: #### 2 4323-8 #### DONNELL Pardo ([id number]) [facility] ([facility]) [address] [place] [address] 06184 Creatine kinaseon 04-28-2023 CK [Catalytic activity/Vol] 174 U/L Normal 0-325 [facility] Comment on above: Performed By: #### 2 157-6 #### DONNELL Pardo ([id number]) [facility] ([facility]) [address] [place] [address] 80486 Lactateon 04-28-2023 Lactate [Moles/Vol] 1.6 mmol/L Normal 0.4-2.0 [facility] Comment on above: Order Comment: Venip uncture immediately after or during the administration of Metamizole may lead to falsely low results. Testing should be performed immediately prior to Metamizole dosing. Performed By: #### 2 524-7 #### DONNELL Pardo ([id number]) [facility] [place] [address] [place] [address] 29080 Troponin I.cardiac panelon 1 Tropinin I.cardiac panel Hig h sensitivity method 3 ng/L Normal 0-20 [facility] Comment on above: Order Comment: Drug screen results are presumptive and should not be used to assess compliance with prescribed medication. Definitive confirmatory drug testing has been added to this sample for any positive screen result and will be reported separately. Toxicology screening results are reported qualitatively. The concentration must be greater than or equal to the cutoff to be reported as positive. The concentration at which the screening test can detect an individual drug or metabolite varies. The absence of expected drug(s) and/or drug metabolite(s) may indicate non- compliance, inappropriate timing of specimen collection relative to drug administration, poor drug absorption, diluted/adulterated urine, or limitations of testing. For medical purposes only; not valid for forensic use. Interpretive questions should be directed to the laboratory medical directors. Performed By: #### 8 7428-9 #### DONNELL Pardo ([id number]) [facility] [place] [address] [place] [address] 89675 Tropinin I.cardiac panel Hig h sensitivity method 4 ng/L Normal 0-20 [facility] Comment on above: Order Comment: Drug screen results are presumptive and should not be used to assess compliance with prescribed medication. Definitive confirmatory drug testing has been added to this sample for any positive screen result and will be reported separately. Toxicology screening results are reported qualitatively. The concentration must be greater than or equal to the cutoff to be reported as positive. The concentration at which the screening test can detect an individual drug or metabolite varies. The absence of expected drug(s) and/or drug metabolite(s) may indicate non- compliance, inappropriate timing of specimen collection relative to drug administration, poor drug absorption, diluted/adulterated urine, or limitations of testing. For medical purposes only; not valid for forensic use. Interpretive questions should be directed to the laboratory medical directors. Performed By: #### 8 7428-9 #### DONNELL Pardo ([id number]) [facility] [place] [address] [place] [address] 71661 ACUTE TOXICOLOGY PANEL, [place] 04-27-2023 Acetaminophen [Mass/Vol] ug/mL Normal 10.0-30.0 [facility] Comment on above: Performed By: #### D RUBL #### DONNELL Pardo ([id number]) [facility] ([facility]) [address] [place] [address] Ethanol [Mass/Vol] 57 mg/dL High <=10 [facility] Comment on above: Performed By: #### D RUBL #### DONNELL Pardo ([id number]) [facility] ([facility]) [address] [place] [address] Salicylates [Mass/Vol] mg/dL Normal 4-20 [facility] Comment on above: Performed By: #### D RUBL #### DONNELL Pardo ([id number]) 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 Discharge Information Row Name ED to Hosp-Admission (Current) from 04/23/2023 in [facility] Psychiatry Follow-Up Appointment Psychiatrist Name To be linked by [place] [employer] police officer Additional Instructions Pt stated his chief lifestyle officer will link him with a Residential treatment center. 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 On admission Patient/Automat Car Attendant Given/Explained Medicare Discharge Notice (IM letter): Not Applicable TRANSPORTATION ARRANGEMENTS: Taxi Cab Voucher PRESCRIPTIONS FILLED PRIOR TO DISCHARGE: Yes, faxed to outside pharmacy: [facility] [place] ADDITIONAL NOTES: Pt met with treatment team. Pt stated that he spoke with his chief lifestyle officer and he wants pt to report directly to him today. MD asked pt about where he will stay as this is short notice for his chief lifestyle officer to get him into Residential treatment. Pt stated He's going to give me a urine test and then he'll either get me into treatment or I'll go to skilled nursing. Pt laughed stating So either way I will have housing. Pt stated he will go to [facility]. Pt denied S/HI and was agreeable with d/c plans. Pt denied S/HI. Pt stated he left previous treatment facilities due to I needed to get my medication right. Pt stated he was able to rest at this hospital and he is feeling better. Pt stated that he does not have transportation to his chief lifestyle officer's address at: [address] [place] [address]. SW s/w pt about linkage with a MHC in the [facility] but pt stated My chief lifestyle officer will get me all that. Pt denied following with any previous MHC's. Pt will be cabbed to [place] 9 police officer's office as he does not have alternate transportation and stated his friend Estefany works until 5 or 6p.m. SIGNATURE: USAMA Donnelly PATIENT NAME: Edward Crowder DATE: April 27, 2023 TIME: 9:19 AM Normal [facility] CBC W Auto Differential pane l (Bld)on 04-27-2023 Basophils (Bld) [#/Vol] 0.04 x10*3/uL Normal 0.00-0.10 [facility] Comment on above: Performed By: #### 5 7021-8 #### DONNELL Pardo ([id number]) [facility] [place] [address] [place] [address] 94809 Basophils/100 WBC (Bld) 0.5 % Normal 0.0-2.0 [facility] Comment on above: Performed By: #### 5 7021-8 #### DONNELL Pardo ([id number]) [facility] ([facility]) [address] [place] [address] 61094 Eosinophils (Bld) [#/Vol] 0.11 x10*3/uL Normal 0.00-0. 70 [facility] Comment on above: Performed By: #### 5 7021-8 #### DONNELL Pardo ([id number]) [facility] ([facility]) [address] [place] [address] 88564 Eosinophils/100 WBC (Bld) 1.3 % Normal 0.0-6.0 [facility] Comment on above: Performed By: #### 5 7021-8 #### DONNELL Pardo ([id number]) [facility] ([facility]) [address] [place] [address] 37050 Erythrocyte distribution wid th (RBC) [Ratio] 12.1 % Normal 11.5-14.5 [facility] Comment on above: Performed By: #### 5 7021-8 #### DONNELL Pardo ([id number]) [facility] ([facility]) [address] [place] [address] Hematocrit (Bld) [Volume fraction] 44.9 % Normal 41.0-52.0 [facility] Comment on above: Performed By: #### 5 7021-8 #### DONNELL Pardo ([id number]) [facility] ([facility]) [address] [place] [address] 96519 Hemoglobin (Bld) [Mass/Vol] 15.3 g/dL Normal 13.5-17. 5 [facility] Comment on above: Performed By: #### 5 7021-8 #### DONNELL Pardo ([id number]) [facility] ([facility]) [address] [place] [address] 22320 Immature granulocytes (Bld) [#/Vol] 0.02 x10*3/uL Normal 0.00-0.70 [facility] Comment on above: Performed By: #### 5 7021-8 #### DONNELL Pardo ([id number]) [facility] ([facility]) [address] [place] [address] 46193 Immature granulocytes/100 WBC (Bld) 0.2 % Normal 0.0-0.9 [facility] Comment on above: Result Comment: Beatriz ture Granulocyte Count (IG) includes promyelocytes, myelocytes and metamyelocytes but does not include bands. Percent differential counts (%) should be interpreted in the context of the absolute cell counts (cells/UL). Performed By: #### 5 7021-8 #### DONNELL Pardo ([id number]) [facility] ([facility]) [address] [place] [address] 43457 Lymphocytes (Bld) [#/Vol] 1.98 x10*3/uL Normal 1.20-4. 80 [facility] Comment on above: Performed By: #### 5 7021-8 #### DONNELL Pardo ([id number]) [facility] ([facility]) [address] [place] [address] 21979 Lymphocytes/100 WBC (Bld) 23.8 % Normal 13.0-44.0 [facility] Comment on above: Performed By: #### 5 7021-8 #### DONNELL Pardo ([id number]) [facility] ([facility]) [address] [place] [address] 18588 MCH (RBC) [Entitic mass] 30.6 pg Normal 26.0-34.0 [facility] Comment on above: Performed By: #### 5 7021-8 #### DONNELL Pardo ([id number]) [facility] ([facility]) [address] [place] [address] 21556 MCHC (RBC) [Mass/Vol] 34.1 g/dL Normal 32.0-36.0 [facility] Comment on above: Performed By: #### 5 7021-8 #### DONNELL Pardo ([id number]) [facility] ([facility]) [address] [place] [address] 53229 MCV (RBC) [Entitic vol] 90 fL Normal 80-100 [facility] Comment on above: Performed By: #### 5 7021-8 #### DONNELL Pardo ([id number]) [facility] ([facility]) [address] [place] [address] 48086 Monocytes (Bld) [#/Vol] 0.93 x10*3/uL Normal 0.10-1.00 [facility] Comment on above: Performed By: #### 5 7021-8 #### DONNELL Pardo ([id number]) [facility] ([facility]) [address] [place] [address] 16801 Monocytes/100 WBC (Bld) 11.2 % Normal 2.0-10.0 [facility] Comment on above: Performed By: #### 5 7021-8 #### DONNELL Pardo ([id number]) [facility] ([facility]) [address] [place] [address] 42341 Neutrophils (Bld) [#/Vol] 5.25 x10*3/uL Normal 1.20-7. 70 [facility] Comment on above: Result Comment: Perc ent differential counts (%) should be interpreted in the context of the absolute cell counts (cells/uL). Performed By: #### 5 7021-8 #### DONNELL Pardo ([id number]) [facility] [place] [address] [place] [address] 28953 Neutrophils/100 WBC (Bld) 63.0 % Normal 40.0-80.0 [facility] Comment on above: Performed By: #### 5 7021-8 #### DONNELL Pardo ([id number]) [facility] [place] [address] [place] [address] 25598 Nucleated RBC/100 WBC (Bld) [Ratio] 0.0 /100 WBCs Normal 0.0-0.0 [facility] Comment on above: Performed By: #### 5 7021-8 #### DONNELL Pardo ([id number]) [facility] ([facility]) [address] [place] [address] 23770 Platelet mean volume (Bld) [Entitic vol] 9.8 fL Normal 7.5-11.5 [facility] Comment on above: Performed By: #### 5 7021-8 #### DONNELL Pardo ([id number]) [facility] ([facility]) [address] [place] [address] 25823 Platelets (Bld) [#/Vol] 238 x10*3/uL Normal 150-450 [facility] Comment on above: Performed By: #### 5 7021-8 #### DONNELL Pardo ([id number]) [facility] ([facility]) [address] [place] [address] 95174 RBC (Bld) [#/Vol] 5.00 x10*6/uL Normal 4.50-5.90 [facility] Comment on above: Performed By: #### 5 7021-8 #### DONNELL Pardo ([id number]) [facility] ([facility]) [address] [place] [address] 94808 WBC (Bld) [#/Vol] 8.3 x10*3/uL Normal 4.4-11.3 [facility] Comment on above: Performed By: #### 5 7021-8 #### DONNELL Pardo ([id number]) [facility] ([facility]) [address] [place] [address] 43341 CNDSon 04-27-2023 CNDS HNO ID: [id number] Author: Jena Felton MD Service: ? Author Type: Physician Type: Discharge Summary Filed: 04/27/2023 12:25 PM Note Text: DISCHARGE SUMMARY BEHAVIORAL HEALTH PATIENT NAME: Edward Crowder ADMISSION DATE: 04/23/2023 DISCHARGE DATE: 04/27/2023 ATTENDING PHYSICIAN: Jena Felton MD Code Status: Not on file Highest Readmission Risk Score: 21 The 30 day readmissions risk score is derived from an internally validated risk model which evaluates patient level characteristics, utilization history, medication orders and lab results up until the day of discharge. Patients with a score of 40 or above are considered highest risk for readmission. Specific patient level drivers will be listed at the bottom of the summary. REASON FOR HOSPITALIZATION: worsening of anxiety ., insomnia and bizarre behaviors in the community. DISCHARGE DIAGNOSIS: PRIMARY: Schizoaffective Disorder Substance use disorder( alcohol, Meth , Heroine and opiates. ) OPERATIONS DURING HOSPITALIZATION: None PROCEDURES DURING HOSPITALIZATION: No procedures performed HOSPITAL COURSE: This is a pt with long history of polysubstance abuse and mood disorder. Pt has been using drugs and recently was referred to [facility]. Pt walked out from there without completing the trt. He stated he was so anxious. Could not sleep. Said his medications are not right. He wanted to have his medications adjusted. Pt was started on medications to manage his mood and anxiety . Pt also received Naltrexone for his alcohol abuse. Pt responded to medications. We recommended substance abuse rehab. Pt has been in touch with his parol officer and reportedly his chief lifestyle officer is going to make arrangements for his rehab. He wanted to go to [facility]. At this point we are unsure where he is going to go for his rehab. Pts mood is stable. Anxiety has improved. He still have some restlessness. He has reached maximum benefit from his alice in the hospital. CONSULTING TEAMS DURING HOSPITALIZATION: Internal Medicine: routine medical follow up Treatment Team: Attending Provider: Jena Felton MD Consulting: Anny Sewell MD PATIENT CONDITION AT DISCHARGE: Fair DISCHARGE DISPOSITION: self ., COMPLICATIONS: None At this time the patient has maximized his benefit from hospitalization.. The patient denies suicidal or homicidal ideation, intent or plan and is safe for discharge. The patient voices a readiness to transition back to his home setting and has agreed to our follow-up recommendations including medication compliance. SUBJECTIVE: Pt reported that he feels ready to be discharged. He wants to pursue his rhab. OBJECTIVE: Pt was seen with team. He is alert and oriented. Not suicidal. Not psychotic. Transitions of Care Critical Issues: NEW BASELINE FOR PATIENT: fair LABS AND PROCEDURES PENDING AT DISCHARGE: No pending results. Any PRN's required for agitation or anxiety since last encounter: No New problems on the unit since the last encounter: No Any new medication reactions since the last encounter: No BP 137/89 Pulse 89 Temp (Src) 98.2 (Oral) Resp 18 Ht 5' 7 (1.70m) Wt 200 lb (90.7kg) SpO2 96% BMI 31.32 kg/(m2). MENTAL STATUS EXAM AT DISCHARGE: Appearance: Casually dressed Behavior: restless with his legs and mild anxiety present. Orientation: Person, Place, Time and Situation Speech/Language: The patient demonstrates appropriate tone, prosody, ej, phonetics, and syntax Mood/Affect: Anxious Thought/Form: Coherent Thought Content: Coherent Suicidal Ideations: No suicidal ideation, intent or plan. Homicidal Ideations: No homicidal ideation, intent or plan. Insight: Limited Judgment: Limited Memory/Cognition: Intact Psychomotor: Psychomotor activity was normal GENERAL: Alert, no distress, cooperative SKIN: No gross abnormal findings HEART/LUNGS: No gross abnormal findings ABDOMEN: No gross abnormal findings, Abdomen soft, non-tender NEUROLOGIC: No gross abnormal findings including cranial nerves 2-12. MUSCULOSKELETAL: Normal muscle strength and Normal muscle tone GAIT: Normal LABORATORY DATA: The laboratory/imaging results have been reviewed. Pertinent findings since the last assessment: No TREATMENT PLAN: 1. Biological Management: continue current medications. 2. Psychological Management Recommendations: supportive therapy. Substance abuse rehab. 3. Social Intervention Recommendations: drug rehab INFORMED CONSENT: Yes, completed with the Patient. Discussed the risks, benefits and alternatives to the medication(s) recommended. Consent was given. ALLERGIES No Known Allergies DISCHARGE MEDICATION: Medication List START taking these medications naltrexone 50 mg tablet Take 1 tablet by mouth once daily. Start taking on: April 28, 2023 nicotine 14 mg/24 hr Commonly known as: NICODERM Apply 1 Patch as directed (more content not included)... Normal [facility] Comprehensive metabolic 2000 panelon 04-27-2023 Albumin BCP dye [Mass/Vol] 4.3 g/dL Normal 3.4-5.0 [facility] Comment on above: Performed By: #### 2 4323-8 #### DONNELL Pardo ([id number]) [facility] ([facility]) [address] [place] [address] 49537 ALP [Catalytic activity/Vol] 78 U/L Normal 33-120 [facility] Comment on above: Performed By: #### 2 4323-8 #### DONNELL Pardo ([id number]) [facility] ([facility]) [address] [place] [address] ALT With P-5'-P [Catalytic activity/Vol] 22 U/L Normal 10-52 [facility] Comment on above: Result Comment: Yumi ents treated with Sulfasalazine may generate falsely decreased results for ALT. Performed By: #### 2 4323-8 #### DONNELL Pardo ([id number]) [facility] ([facility]) [address] [place] [address] 29363 Anion gap [Moles/Vol] 14 mmol/L Normal 10-20 [facility] Comment on above: Performed By: #### 2 4323-8 #### DONNELL Pardo ([id number]) [facility] ([facility]) [address] [place] [address] 47995 AST With P-5'-P [Catalytic activity/Vol] 22 U/L Normal 9-39 [facility] Comment on above: Result Comment: MILD HEMOLYSIS DETECTED. The result may be falsely elevated due to hemolysis or other interferents. Clinical correlation is recommended. Repeat testing may be considered. Performed By: #### 2 4323-8 #### DONNELL Pardo ([id number]) [facility] ([facility]) [address] [place] [address] 34601 Bilirubin [Mass/Vol] 0.3 mg/dL Normal 0.0-1.2 [facility] Comment on above: Performed By: #### 2 4323-8 #### DONNELL Pardo ([id number]) [facility] ([facility]) [address] [place] [address] 85673 Calcium [Mass/Vol] 9.1 mg/dL Normal 8.6-10.3 [facility] Comment on above: Performed By: #### 2 4323-8 #### DONNELL Pardo ([id number]) [facility] ([facility]) [address] [place] [address] 87844 Chloride [Moles/Vol] 104 mmol/L Normal 98-107 [facility] Comment on above: Performed By: #### 2 4323-8 #### DONNELL Pardo ([id number]) [facility] ([facility]) [address] [place] [address] 34337 CO2 [Moles/Vol] 23 mmol/L Normal 21-32 [facility] Comment on above: Performed By: #### 2 4323-8 #### DONNELL Pardo ([id number]) [facility] ([facility]) [address] [place] [address] 37397 Creatinine [Mass/Vol] 1.14 mg/dL Normal 0.50-1.30 [facility] Comment on above: Performed By: #### 2 4323-8 #### DONNELL Pardo ([id number]) [facility] ([facility]) [address] [place] [address] GFR/1.73 sq M.predicted MDRD (S/P/Bld) [Vol rate/Area] 78 mL/min/1.73m*2 Normal >60 [facility] Comment on above: Result Comment: Calculations of estimate d GFR are performed using the 2020 CKD-EPI Study Refit equation without the race variable for the IDMS-Traceable creatinine methods. https://jasn.asnjournals.org/content/early//ASN.3210555796 Performed By: #### 2 4323-8 #### DONNELL Pardo ([id number]) [facility] ([facility]) [address] [place] [address] 00384 Glucose [Mass/Vol] 66 mg/dL Low 74-99 [facility] Comment on above: Performed By: #### 2 4323-8 #### DONNELL Pardo ([id number]) [facility] ([facility]) [address] [place] [address] 31101 Potassium [Moles/Vol] 4.1 mmol/L Normal 3.5-5.3 [facility] Comment on above: Result Comment: MILD HEMOLYSIS DETECTED. The result may be falsely elevated due to hemolysis or other interferents. Clinical correlation is recommended. Repeat testing may be considered. Performed By: #### 2 4323-8 #### DONNELL Pardo ([id number]) [facility] ([facility]) [address] [place] [address] 69260 Protein [Mass/Vol] 7.0 g/dL Normal 6.4-8.2 [facility] Comment on above: Performed By: #### 2 4323-8 #### DONNELL Pardo ([id number]) [facility] ([facility]) [address] [place] [address] Sodium [Moles/Vol] 137 mmol/L Normal 136-145 [facility] Comment on above: Performed By: #### 2 4323-8 #### DONNELL Pardo ([id number]) [facility] ([facility]) [address] [place] [address] 61394 Urea nitrogen [Mass/Vol] 19 mg/dL Normal 6-23 [facility] Comment on above: Performed By: #### 2 4323-8 #### DONNELL Pardo ([id number]) [facility] ([facility]) [address] [place] [address] 62947 Drugs of abuse screen W Refl ex confirm panel (U)on 04-27-2023 Amphetamines Screen Ql (U) Negative Normal Presumptive Negative [facility] Comment on above: Order Comment: Drug screen results are presumptive and should not be used to assess compliance with prescribed medication. Definitive confirmatory drug testing has been added to this sample for any positive screen result and will be reported separately. Toxicology screening results are reported qualitatively. The concentration must be greater than or equal to the cutoff to be reported as positive. The concentration at which the screening test can detect an individual drug or metabolite varies. The absence of expected drug(s) and/or drug metabolite(s) may indicate non- compliance, inappropriate timing of specimen collection relative to drug administration, poor drug absorption, diluted/adulterated urine, or limitations of testing. For medical purposes only; not valid for forensic use. Interpretive questions should be directed to the laboratory medical directors. Result Comment: CUTO FF LEVEL: 500 NG/ML Cross-reactivity has been reported with high concentrations of the following drugs: buproprion, chloroquine, chlorpromazine, ephedrine, mephentermine, fenfluramine, phentermine, phenylpropanolamine, pseudoephedrine, and propranolol. Performed By: #### 8 7428-9 #### DONNELL Pardo ([id number]) [facility] ([facility]) [address] [place] [address] 11900 Barbiturates Screen Ql (U) Negative Normal Presumptive Negative [facility] Comment on above: Order Comment: Drug screen results are presumptive and should not be used to assess compliance with prescribed medication. Definitive confirmatory drug testing has been added to this sample for any positive screen result and will be reported separately. Toxicology screening results are reported qualitatively. The concentration must be greater than or equal to the cutoff to be reported as positive. The concentration at which the screening test can detect an individual drug or metabolite varies. The absence of expected drug(s) and/or drug metabolite(s) may indicate non- compliance, inappropriate timing of specimen collection relative to drug administration, poor drug absorption, diluted/adulterated urine, or limitations of testing. For medical purposes only; not valid for forensic use. Interpretive questions should be directed to the laboratory medical directors. Result Comment: CUTO FF LEVEL: 200 NG/ML Performed By: #### 8 7428-9 #### DONNELL Pardo ([id number]) [facility] ([facility]) [address] [place] [address] 03477 Benzodiazepines Ql (U) Negative Normal Presumptive N egative [facility] Comment on above: Order Comment: Drug screen results are presumptive and should not be used to assess compliance with prescribed medication. Definitive confirmatory drug testing has been added to this sample for any positive screen result and will be reported separately. Toxicology screening results are reported qualitatively. The concentration must be greater than or equal to the cutoff to be reported as positive. The concentration at which the screening test can detect an individual drug or metabolite varies. The absence of expected drug(s) and/or drug metabolite(s) may indicate non- compliance, inappropriate timing of specimen collection relative to drug administration, poor drug absorption, diluted/adulterated urine, or limitations of testing. For medical purposes only; not valid for forensic use. Interpretive questions should be directed to the laboratory medical directors. Result Comment: CUTO FF LEVEL: 200 NG/ML Performed By: #### 8 7428-9 #### DONNELL Pardo ([id number]) [facility] ([facility]) [address] [place] [address] 01795 Benzoylecgonine Screen Ql (U) Negative Normal Presumptive Negative [facility] Comment on above: Order Comment: Drug screen results are presumptive and should not be used to assess compliance with prescribed medication. Definitive confirmatory drug testing has been added to this sample for any positive screen result and will be reported separately. Toxicology screening results are reported qualitatively. The concentration must be greater than or equal to the cutoff to be reported as positive. The concentration at which the screening test can detect an individual drug or metabolite varies. The absence of expected drug(s) and/or drug metabolite(s) may indicate non- compliance, inappropriate timing of specimen collection relative to drug administration, poor drug absorption, diluted/adulterated urine, or limitations of testing. For medical purposes only; not valid for forensic use. Interpretive questions should be directed to the laboratory medical directors. Result Comment: CUTO FF LEVEL: 150 NG/ML Performed By: #### 8 7428-9 #### DONNELL Pardo ([id number]) [facility] [place] [address] [place] [address] Cannabinoids Screen Ql (U) Negative Normal Presumptive Negative [facility] Comment on above: Order Comment: Drug screen results are presumptive and should not be used to assess compliance with prescribed medication. Definitive confirmatory drug testing has been added to this sample for any positive screen result and will be reported separately. Toxicology screening results are reported qualitatively. The concentration must be greater than or equal to the cutoff to be reported as positive. The concentration at which the screening test can detect an individual drug or metabolite varies. The absence of expected drug(s) and/or drug metabolite(s) may indicate non- compliance, inappropriate timing of specimen collection relative to drug administration, poor drug absorption, diluted/adulterated urine, or limitations of testing. For medical purposes only; not valid for forensic use. Interpretive questions should be directed to the laboratory medical directors. Result Comment: CUTO FF LEVEL: 50 NG/ML Performed By: #### 8 7428-9 #### DONNELL Pardo ([id number]) [facility] ([facility]) [address] [place] [address] 37987 fentaNYL+Norfentanyl Screen Ql (U) Negative Normal Presumptive Negative [facility] Comment on above: Order Comment: Drug screen results are presumptive and should not be used to assess compliance with prescribed medication. Definitive confirmatory drug testing has been added to this sample for any positive screen result and will be reported separately. Toxicology screening results are reported qualitatively. The concentration must be greater than or equal to the cutoff to be reported as positive. The concentration at which the screening test can detect an individual drug or metabolite varies. The absence of expected drug(s) and/or drug metabolite(s) may indicate non- compliance, inappropriate timing of specimen collection relative to drug administration, poor drug absorption, diluted/adulterated urine, or limitations of testing. For medical purposes only; not valid for forensic use. Interpretive questions should be directed to the laboratory medical directors. Result Comment: CUTO FF LEVEL: 5 NG/ML Performed By: #### 8 7428-9 #### DONNELL Pardo ([id number]) [facility] ([facility]) [address] [place] [address] 93953 Opiates Screen Ql (U) Negative Normal Presumptive Ne gative [facility] Comment on above: Order Comment: Drug screen results are presumptive and should not be used to assess compliance with prescribed medication. Definitive confirmatory drug testing has been added to this sample for any positive screen result and will be reported separately. Toxicology screening results are reported qualitatively. The concentration must be greater than or equal to the cutoff to be reported as positive. The concentration at which the screening test can detect an individual drug or metabolite varies. The absence of expected drug(s) and/or drug metabolite(s) may indicate non- compliance, inappropriate timing of specimen collection relative to drug administration, poor drug absorption, diluted/adulterated urine, or limitations of testing. For medical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 Years: 30.00 Additional pack years: 0.00 Total pack years: 15.00 Types: Cigarettes Smokeless tobacco: Never Vaping Use Vaping Use: Never used Substance Use Topics Alcohol use: No Drug use: Not Currently Comment: percocet, oxycontin,IV heroin Cholecalciferol, Vitamin D3, (VITAMIN D-3) 50 mcg (2,000 unit) cap, Take 1 capsule by mouth once daily., Disp: , Rfl: , 04/22/2023 divalproex ER (DEPAKOTE ER) 500 mg 24 hr tablet, Take 1 tablet by mouth twice daily., Disp: 60 tablet, Rfl: 0, 04/22/2023 docusate sodium (COLACE) 100 mg capsule, Take 1 capsule by mouth once daily. (Patient taking differently: Take 100 mg by mouth once daily as needed for constipation.), Disp: 30 capsule, Rfl: 0, 04/22/2023 ferrous sulfate 325 mg (65 mg iron) tablet, Take 1 tablet by mouth once daily., Disp: 30 tablet, Rfl: 0, 04/22/2023 gabapentin (NEURONTIN) 400 mg capsule, Take 2 capsules by mouth every 12 hours for 30 days. (Patient not taking: Reported on 04/23/2023), Disp: 120 capsule, Rfl: 0, Not Taking gabapentin (NEURONTIN) 800 mg tablet, Take 800 mg by mouth three times a day., Disp: , Rfl: , 04/22/2023 lisinopril (ZESTRIL) 10 mg tablet, Take 1 tablet by mouth once daily. (Patient not taking: Reported on 04/23/2023), Disp: 30 tablet, Rfl: 0, Not Taking nicotine polacrilex (NICORETTE) 2 mg gum, Take 1 Each by mouth every 2 hours as needed. (Patient not taking: Reported on 04/23/2023), Disp: , Rfl: , Not Taking pantoprazole DR (PROTONIX) 20 mg tablet, Take 1 tablet by mouth DAILY (6 AM)., Disp: 30 tablet, Rfl: 0, 04/22/2023 QUEtiapine (SEROQUEL) 25 mg tablet, Take 25 mg by mouth three times a day., Disp: , Rfl: , 04/22/2023 rOPINIRole (REQUIP) 0.25 mg tablet, Take 1 tablet by mouth daily at bedtime., Disp: 30 tablet, Rfl: 0, 04/22/2023 ziprasidone (GEODON) 80 mg capsule, Take 1 capsule by mouth twice daily with meals., Disp: 60 capsule, Rfl: 0, 04/22/2023 Current Facility-Administered Medications Medication Dose Route Frequency lisinopril 10 mg tab(s) (ZESTRIL) 10 mg ORAL DAILY divalproex ER 500 mg tab(s) (DEPAKOTE ER) 500 mg ORAL BID gabapentin 800 mg cap(s) (NEURONTIN) 800 mg ORAL q 12 H rOPINIRole 0.25 mg tab(s) (REQUIP) 0.25 mg ORAL AT BEDTIME docusate sodium 100 mg cap(s) (COLACE) 100 mg ORAL DAILY ferrous sulfate 325 mg tab(s) 325 mg ORAL DAILY [START ON 04/24/2023] pantoprazole DR 20 mg tab(s) (PROTONIX) 20 mg ORAL DAILY (6 AM) ziprasidone 80 mg cap(s) (GEODON) 80 mg ORAL BID w MEALS QUEtiapine 25 mg tab(s) (SEROquel) 25 mg ORAL TID cholecalciferol 2,000 Units tab(s) (VITAMIN D3) 2,000 Units ORAL DAILY haloperidol 5 mg tab(s) (HALDOL) 5 mg ORAL q 4 H PRN Or haloperidol lactate 5 mg short-acting injection (HALDOL) 5 mg INTRAMUSCULAR q 4 H PRN hydrOXYzine HCl 50 mg tab(s) (ATARAX) 50 mg ORAL q 4 H PRN benztropine 2 mg tab(s) (COGENTIN) 2 mg ORAL q 4 H PRN acetaminophen 650 mg tab(s) (TYLENOL) 650 mg ORAL q 6 H PRN aluminum-magnesium hydroxide-simethicone 200-200-20 mg/5 mL 30 mL 30 mL ORAL q 4 H PRN magnesium hydroxide 400 mg/5 mL 30 mL (MOM) 30 mL ORAL DAILY PRN diphenhydrAMINE 50 mg injection (BENADRYL) 50 mg INTRAMUSCULAR q 30 MIN PRN nicotine polacrilex 2 mg gum (NICORETTE) 2 mg ORAL q 2 H PRN LORazepam 2 mg (ATIVAN) 2 mg ORAL q 4 H PRN Or LORazepam 2 mg injection (ATIVAN) 2 mg INTRAMUSCULAR q 4 H PRN nicotine 14 mg/24 hr 1 Patch (NICODERM) 1 Patch TRANSDERMAL DAILY And [START ON 04/24/2023] nicotine -- REMOVE patch OTHER DAILY And nicotine - verify patch OTHER q 8 H ALLERGIES No Known Allergies COMPLETE REVIEW OF SYSTEMS: GENERAL: No weight loss, malaise or fevers. SEE HPI HEENT: Negative for frequent or significant headaches, No changes in hearing or vision, no nose bleeds or other nasal (more content not included)... Normal [facility] Comprehensive metabolic 2000 panelon 04-23-2023 Albumin [Mass/Vol] 4.6 g/dL Normal 3.9-4.9 [facility] Comment on above: Order Comment: Speci men Type: BLOOD SPECIMEN Ordering Facility: [facility] Address: [address] [place] [address] Performed By: #### 2 132-9, 2284-8, 3016-3 #### [facility] CLIA [id number] [address] [place] [address] [place] ALP [Catalytic activity/Vol] 103 U/L Normal 38-113 [facility] Comment on above: Order Comment: Speci men Type: BLOOD SPECIMEN Ordering Facility: [facility] Address: [address] [place] [id number] Performed By: #### 2 132-9, 2284-8, 3016-3 #### [facility] CLIA [id number] [address] [place] [address] [place] ALT [Catalytic activity/Vol] 34 U/L Normal 10-54 [facility] Comment on above: Order Comment: Speci men Type: BLOOD SPECIMEN Ordering Facility: [facility] Address: [address] [place] [address] Performed By: #### 2 132-9, 2284-8, 6-3 #### [facility] CLIA [id number] [place] [address] [place] Anion gap [Moles/Vol] 16 mmol/L Normal 9-18 [facility] Comment on above: Order Comment: Speci men Type: BLOOD SPECIMEN Ordering Facility: [facility] Address: [address] [place] [address] Performed By: #### 2 132-9, 2284-8, 6-3 #### [facility] CLIA [id number] [place] [address] [place] AST [Catalytic activity/Vol] 32 U/L Normal 14-40 [facility] Comment on above: Order Comment: Speci men Type: BLOOD SPECIMEN Ordering Facility: [facility] Address: [address] [place] [address] Performed By: #### 2 132-9, 2283-8, 3015-3 #### [facility] CLIA [id number] [place] [address] [place] Bilirubin [Mass/Vol] 0.5 mg/dL Normal 0.2-1.3 [facility] Comment on above: Order Comment: Speci men Type: BLOOD SPECIMEN Ordering Facility: [facility] Address: [address] [place] [address] Performed By: #### 2 132-9, 2283-8, 3015-3 #### [facility] CLIA [id number] [place] [address] [place] Calcium [Mass/Vol] 9.7 mg/dL Normal 8.5-10.2 [facility] Comment on above: Order Comment: Speci men Type: BLOOD SPECIMEN Ordering Facility: [facility] Address: [address] [place] [address] Performed By: #### 2 132-9, 2284-8, 6-3 #### [facility] CLIA [id number] [place], [place] [id number] [place] Chloride [Moles/Vol] 100 mmol/L Normal 97-105 [facility] Comment on above: Order Comment: Sharda estrada Type: BLOOD SPECIMEN Ordering Facility: [facility] Address: [address] [place] [address] Performed By: #### 2 132-9, 2284-8, 3016-3 #### [facility] CLIA [id number] [place] [address] [place] CO2 [Moles/Vol] 20 mmol/L Low 22-30 [facility] Comment on above: Order Comment: Sharda estrada Type: BLOOD SPECIMEN Ordering Facility: [facility] Address: [address] [place] [address] Performed By: #### 2 132-9, 2284-8, 3016-3 #### [facility] CLIA [id number] [address] [place] [address] [place] Creatinine [Mass/Vol] 1.41 mg/dL High 0.73-1.22 [facility] Comment on above: Order Comment: Sharda estrada Type: BLOOD SPECIMEN Ordering Facility: [facility] Address: [address] [place] [address] Performed By: #### 2 132-9, 2284-8, 3016-3 #### [facility] CLIA [id number] [address] [place] [address] [place] Creatinine and Glomerular filtration rate.predicted panel (S/P/Bld) 61 mL/min/1.73m??? Normal >=60 [facility] Comment on above: Order Comment: Sharda estrada Type: BLOOD SPECIMEN Ordering Facility: [facility] Address: [address] [place] [address] Result Comment: Mami mated Glomerular Filtration Rate (eGFR) is calculated using the 2020 CKD-EPI creatinine equation. This equation utilizes serum creatinine, sex, and age as parameters. The creatinine assay has traceable calibration to isotope dilution-mass spectrometry. Refer to KDIGO guidelines for clinical interpretation. In patients with unstable renal function, e.g. those with acute kidney injury, the eGFR may not accurately reflect actual GFR. Performed By: #### 2 132-9, 2284-8, 3016-3 #### [facility] CLIA [id number] [place] [address] [place] Glucose [Mass/Vol] 99 mg/dL Normal 74-99 [facility] Comment on above: Order Comment: Sharda estrada Type: BLOOD SPECIMEN Ordering Facility: [facility] Address: [address] [place], [place] [id number] Result Comment: The [place] Diabetes [employer] (ADA) provides guidance for cutoff values for fasting glucose and random glucose. The ADA defines fasting as no caloric intake for at least 8 hours. Fasting plasma glucose results between 100 to 125 mg/dL indicate increased risk for diabetes (prediabetes). Fasting plasma glucose results greater than or equal to 126 mg/dL meet the criteria for diagnosis of diabetes. In the absence of unequivocal hyperglycemia, results should be confirmed by repeat testing. In a patient with classic symptoms of hyperglycemia or hyperglycemic crisis, random plasma glucose results greater than or equal to 200 mg/dL meet the criteria for diagnosis of diabetes. Reference: Standards of Medical Care in Diabetes 2016, [place] [employer]. Diabetes Care. 2016.39(Suppl 1). Performed By: #### 2 132-9, 2284-8, 6-3 #### [facility] IA [id number] [address] [place] [address] [place] Potassium [Moles/Vol] 4.2 mmol/L Normal 3.7-5.1 [facility] Comment on above: Order Comment: Sharda estrada Type: BLOOD SPECIMEN Ordering Facility: [facility] Address: [address] [place] [address] Performed By: #### 2 132-9, 2284-8, 6-3 #### [facility] IA [id number] [address] [place] [address] [place] Protein [Mass/Vol] 7.5 g/dL Normal 6.3-8.0 [facility] Comment on above: Order Comment: Sharda estrada Type: BLOOD SPECIMEN Ordering Facility: [facility] Address: [address] [place] [address], [place] [address] Performed By: #### 2 132-9, 2284-8, 3016-3 #### [facility] CLIA [id number] [address] [place] [address] OF [facility] Sodium [Moles/Vol] 136 mmol/L Normal 136-144 [facility] Comment on above: Order Comment: Speci men Type: BLOOD SPECIMEN Ordering Facility: [facility] Address: [address] Performed By: #### 2 132-9, 2284-8, 3016-3 #### [facility] CLIA [id number] [place] [address] [place] Urea nitrogen [Mass/Vol] 21 mg/dL Normal 9-24 [facility] Comment on above: Order Comment: Speci men Type: BLOOD SPECIMEN Ordering Facility: [facility] Address: [address] [place] [address] Performed By: #### 2 132-9, 2284-8, 3016-3 #### [facility] IA [id number] [address] [place] [address] [place] ECG COMPLETEon 04-23-2023 ECG COMPLETE Ventricular Rate : 1 08 BPM Atrial Rate : 107 BPM P-R Interval : 165 ms QRS Duration : 93 ms Q-T Interval : 332 ms QTC Calculation(Bazett) : 445 ms Calculated P [employer] : 36 degrees Calculated R [employer] : 26 degrees Calculated T [employer] : 54 degrees Sinus tachycardia Low voltage, precordial leads Abnormal R-wave progression, late transition Borderline ECG Confirmed by MD ZAMBRANO HAROLD ([id number]), news copy editor ANNA CARTER ([id number]) on 04/24/2023 6:37:35 AM NAME : EDWARD CROWDER PID : [id number] : 1970 Gender : Male Race : ORD : [id number] Procedure Date : Apr 23 2023 09:05:01 Edit Date : Apr 24 2023 06:37:37 Diagnosis: Sinus tachycardia Low voltage, precordial leads Abnormal R-wave progression, late transition Borderline ECG Confirmed by MD ZAMBRANO HAROLD ([id number]), news copy editor ANNA CARTER ([id number]) on 04/24/2023 6:37:35 AM Test Reason : Arrhythmia Location : 18 : ED -er11 Overread By : MD ZAMBRANO HAROLD Edited By : ANNA CARTER Referred By : , Acquired by : , [facility] ED NOTEon 04-23-2023 ED NOTE HNO ID: [id number] Author: Gary Fox RN Service: ? Author Type: Registered Nurse Type: ED Notes Filed: 04/23/2023 12:44 PM Note Text: Report given to [place] RN. [facility] ED NOTE HNO ID: [id number] Author: Derrick Roger, SHELIA Service: Emergency Medicine Author Type: Registered Nurse Type: ED Notes Filed: 04/23/2023 8:25 AM Note Text: PT arrived to ED alone he reports to me he is suicidal and the voices in his head are unbearable. In triage he is anxious with visible tremors, he stated he has not slept in three days and his current medications are not working. He told me the voices are telling him to end his life, but he also wants to and his plan is to take all of his medications. He stated he has tried to OD in the past, he denied taking any medications last night or this morning. He is not homicidal. .. Plan of care -Monitor Patient's Vital Signs for changes in condition -Monitor patient for changes in pain -Maintain patient safety and privacy -Provide comfort measures -Call light in place -Siderails up, bed in locked and low position Relationship Based Care: What can I do to make you more comfortable? Nothing. 2. Is there anything else I can do for you right now? No. 3. Is there anything we need to know to best care for you? No. [facility] ED PROV NOTEon 04-23-2023 ED PROV NOTE HNO ID: [id number] Author: Jose Cruz Zambrano MD Service: ? Author Type: Physician Type: ED Provider Notes Filed: 04/23/2023 3:54 PM Note Text: ED Provider Note Patient Name: Edward Crowder : 1970 SERVICE DATE: 04/23/23 History Patient presents with: Suicidal Ideation HPI Patient is a 52 y/o male with a PMH of anxiety, smoker presenting to the ED with SI and AH. Patient states the medications he takes aren't working, he is on depakote, geodon and another medication. He cannot give me a clear answer as to if he is taking them. Over the last 3 days he has been anxious, unable to sleep, hearing voices telling him to kill himself. He states I need help he appears shaking and anxious. States his neck is bothering him, he has chronic neck pain from a prior surgery. Denies drug or ETOH use. PAST MEDICAL HISTORY Diagnosis Date Anxiety Tobacco use PAST SURGICAL HISTORY Procedure Laterality Date NONE FAMILY HISTORY Problem Relation Age of Onset Diabetes Mother Diabetes Maternal Grandmother Cancer Son 17 Arthritis Other mother's side of family Arthritis Other father's side of family Social History Tobacco Use Smoking status: Every Day Packs/day: 0.50 Years: 30.00 Additional pack years: 0.00 Total pack years: 15.00 Types: Cigarettes Smokeless tobacco: Never Vaping Use Vaping Use: Never used Substance and Sexual Activity Alcohol use: No Drug use: Not Currently Comment: percocet, oxycontin,IV heroin Sexual activity: Not on file ALLERGIES No Known Allergies Review of Systems Constitutional: Negative for chills, diaphoresis, fatigue and fever. HENT: Negative for congestion, ear pain, rhinorrhea and sore throat. Eyes: Negative for visual disturbance. Respiratory: Negative for cough, chest tightness and shortness of breath. Cardiovascular: Negative for chest pain. Gastrointestinal: Negative for abdominal pain, constipation, diarrhea, nausea and vomiting. Genitourinary: Negative for dysuria, flank pain, frequency and urgency. Musculoskeletal: Negative for back pain, myalgias and neck stiffness. Skin: Negative for color change, rash and wound. Allergic/Immunologic: Negative for immunocompromised state. Neurological: Positive for tremors. Negative for dizziness, weakness, light-headedness, numbness and headaches. Hematological: Does not bruise/bleed easily. Psychiatric/Behavioral: Positive for hallucinations, sleep disturbance and suicidal ideas. Negative for confusion. The patient is nervous/anxious. Physical Exam Vitals [04/23/23 0812] BP Pulse Temp Temp src Resp SpO2 Weight Height 142/108 (!) 124 36.9 ?C (98.4 ?F) Oral 20 98 % 90.7 kg (200 lb) -- Physical Exam Vitals and nursing note reviewed. Constitutional: General: He is not in acute distress. Appearance: Normal appearance. He is not ill-appearing, toxic-appearing or diaphoretic. HENT: Head: Normocephalic and atraumatic. Mouth/Throat: Mouth: Mucous membranes are moist. Eyes: Conjunctiva/sclera: Conjunctivae normal. Cardiovascular: Rate and Rhythm: Regular rhythm. Tachycardia present. Pulses: Normal pulses. Heart sounds: Normal heart sounds. No murmur heard. Pulmonary: Effort: Pulmonary effort is normal. No respiratory distress. Breath sounds: Normal breath sounds. No stridor. No wheezing, rhonchi or rales. Chest: Chest wall: No tenderness. Abdominal: General: Abdomen is flat. Musculoskeletal: General: No tenderness or deformity. Normal range of motion. Cervical back: Normal range of motion and neck supple. Skin: General: Skin is warm and dry. Findings: No erythema. Neurological: Mental Status: He is alert and oriented to person, place, and time. Sensory: No sensory deficit. Psychiatric: Attention and Perception: He is inattentive. Mood and Affect: Mood is anxious. Thought Content: Thought content includes suicidal ideation. Thought content does not include suicidal plan. Cognition and Memory: Cognition normal. Judgment: Judgment normal. Diagnostic Testing ED Labs Ordered and Reviewed - No data to display Labs Reviewed COMP METABOLIC PANEL - Abnormal; Notable for the following components: Result Value Creatinine 1.41 (*) CO2 20 (*) All other components within normal limits URINALYSIS WITH MICROSCOPIC, REFLEX CULTURE - Abnormal; Notable for the following components: Specific [place], Ur <=1.005 (*) All other components within normal limits CBC - Normal TOX SCREEN ROUT UR - Normal Narrative: Immunoassay screen only. Cross reactivity with other substances can occur with immunoassay screening. Detection of any drug(s) in this urine toxicology panel is presumptive only. These tests are for medical purposes only and should not be used for compliance monitoring, legal, or forensic use. Samples should be within normal physiological conditions (e.g. pH). This assay does not include (more content not included)... Normal [facility] Ethanol [Mass/Vol] mg/dL Normal <11 [facility] Comment on above: Order Comment: Speci men Type: BLOOD SPECIMEN Ordering Facility: [facility] Address: [address] [place] [address] Performed By: #### 2 132-9, 2284-8, 6-3 #### [facility] CLIA [id number] [address] [place] [address] [place] Lipid 1996 panelon 3 Cholesterol [Mass/Vol] 193 mg/dL Normal <200 [facility] Comment on above: Order Comment: Speci men Type: BLOOD SPECIMEN Ordering Facility: [facility] Address: [address] [place] [address] Result Comment: <200 mg/dL, Desirable 200-239 mg/dL, Borderline high >239 mg/dL, High Performed By: #### 2 132-9, 2284-8, 3015-3 #### [facility] CLIA [id number] [address] [place] [address] [place] Cholesterol in HDL [Mass/Vol] 53 mg/dL Normal >39 [facility] Comment on above: Order Comment: Speci natalie Type: BLOOD SPECIMEN Ordering Facility: [facility] Address: [address] [place] [address] Result Comment: 40-5 9 mg/dL, Acceptable >59 mg/dL, High: Negative risk factor for coronary heart disease <40 mg/dL, Low: Positive risk factor for coronary heart disease Performed By: #### 2 132-9, 2284-8, 3015-3 #### [facility] CLIA [id number] [place] Cholesterol in LDL [Mass/Vol] 124 mg/dL High <100 [facility] Comment on above: Order Comment: Asiai men Type: BLOOD SPECIMEN Ordering Facility: [facility] Address: [address] [place] [address] Result Comment: <100 mg/dL, Optimal 100-129 mg/dL, Near optimal/above optimal 130-159 mg/dL, Borderline high 160-189 mg/dL, High >189 mg/dL, Very high Secondary prevention optimal LDL Cholesterol levels are recommended to be < 70 mg/dL Performed By: #### 2 132-9, 2284-8, 3016-3 #### [facility] CLIA [id number] [place] Cholesterol in LDL/Cholester ol in HDL [Mass ratio] 2.34 {ratio} Normal <2.54 [facility] Comment on above: Order Comment: Sharda estrada Type: BLOOD SPECIMEN Ordering Facility: [facility] Address: [address] [address] Result Comment: Refe rence: 1. National Cholesterol Education Program ATP III Guideline At-A-Glance Quick Desk Reference: National Heart, Lung, and Blood [place]. National Institutes of Health. 2001: NIH Publication No. 01-3305. 2. An International Atherosclerosis Society position paper: global recommendations for the management of dyslipidemia: executive summary, Atherosclerosis. 2014: 232(2):410-413. Performed By: #### 2 132-9, 2284-8, 6-3 #### [facility] CLIA [id number] [place] [address] [place] Cholesterol in VLDL [Mass/Vol] 16 mg/dL Normal <30 [facility] Comment on above: Order Comment: Sharda estrada Type: BLOOD SPECIMEN Ordering Facility: [facility] Address: [address] [place] [address] Performed By: #### 2 132-9, 2284-8, 6-3 #### [facility] CLIA [id number] [place] Cholesterol non HDL [Mass/Vol] 140 mg/dL High <130 [facility] Comment on above: Order Comment: Sharda estrada Type: BLOOD SPECIMEN Ordering Facility: [facility] Address: [address] [address] Result Comment: <130 mg/dL, Optimal 130-159 mg/dL, Near optimal/above optimal 160-189 mg/dL, Borderline high 190-219 mg/dL, High >219 mg/dL, Very high Secondary prevention optimal non HDL Cholesterol levels are recommended to be <100 mg/dL Performed By: #### 2 132-9, 2284-8, 3016-3 #### [facility] CLIA [id number] [place], [place] [id number] [place] Cholesterol.total/Cholestero l in HDL [Mass ratio] 3.64 {ratio} Normal <5.10 [facility] Comment on above: Order Comment: Speci men Type: BLOOD SPECIMEN Ordering Facility: [facility] Address: [address] [place] [address] Performed By: #### 2 132-9, 2284-8, 3016-3 #### [facility] CLIA [id number] [address] [place] [address] [place] FASTING TIME Normal [facility] Comment on above: Order Comment: Speci men Type: BLOOD SPECIMEN Ordering Facility: [facility] Address: [address] [place] [address] Result Comment: Unkn own Performed By: #### 2 132-9, 2284-8, 6-3 #### [facility] CLIA [id number] [address] [place] [address] [place] Triglyceride [Mass/Vol] 82 mg/dL Normal <150 [facility] Comment on above: Order Comment: Speci men Type: BLOOD SPECIMEN Ordering Facility: [facility] Address: [address] [place] [address] Result Comment: <150 mg/dL, Normal 150-199 mg/dL, Borderline high 200-499 mg/dL, High >499 mg/dL, Very high Performed By: #### 2 132-9, 2284-8, 3016-3 #### [facility] CLIA [id number] [address] [place] [address] [place] NURSING PROGon 04-23-2023 NURSING PROG HNO ID: [id number] Author: Dirk De La Fuente RN Service: Nursing Author Type: Registered Nurse Type: Nursing Progress Note Filed: 04/24/2023 6:23 AM Note Text: Nursing Progress Note Patient Name: Edward Crowder Patient Location: [id number] 1930 assumed pt. Care, checks per unit protocol , pt visible in day area at this time. 1944 pleasant on approach, behavior in control , denies SI/HI endorses CAH I am hearing voices telling me to end it all and I see shadows.no concerns voiced nor observed at this time. 2039 pt. Complaint with scheduled medications. 0000 pt. Observed resting, eyes closed with no s/s of discomfort noted at this time. 0600 pt. had approximately 8 hours of rest. This note was completed by: Dirk Nhalexia [facility] NURSING PROG HNO ID: [id number] Author: Roma Mccann RN Service: ? Author Type: Registered Nurse Type: Nursing Progress Note Filed: 04/23/2023 4:53 PM Note Text: Nursing Progress Note Patient Name: Edward Crowder Patient Location: [id number] Daily Note: 1300 Pt admitted to [facility] via w/c from [facility]. Pt is dressed in hospital attire, pt is pleasant and cooperative. Pt reports that reason for admission being, all of these thoughts . Pt reports CAH, paranoia, insomnia, SI-plan to OD on meds. Pt reports staying at a sober living, reports last drink was on Thursday when he was released from [place]. Pt states that he has been compliant with his medications since D/C, however, pt reported to intake that he has not been. Pt reports anxiety being a big stressor for him. When reviewing patient medication list with the patient, he states that he takes Neurontin three times daily. Per his med list, that medication was discontinued on 04/16/2023. Pt states that he takes that because he has nerve pain related to a neck injury. Pt reports feeling motivated for treatment. Pt is pleasant and cooperative, pt oriented to unit. Pt has no questions or concerns at this time. 1645 pt given a Nicotine patch at this time, placed on his right arm. Pt given Geodon 80 mg po at this time. This note was completed by: Roma Mccann [facility] SARS-CoV-2 RNA Resp Ql NESSA+p robeon 04-23-2023 SARS-CoV-2 (COVID-19) RNA NESSA+probe Ql (Resp) COVID 19 RESULT: Not detected The method used is RT-PCR or an equivalent NAAT method. Reference Range(the expected result in uninfected individuals): Not detected Normal [facility] Comment on above: Performed By: #### 5 0190-8, 1988-09 #### [facility] CLIA [id number] [address] [place] [address] [place] TOX SCREEN ROUT URon 023 Amphetamines Confirm (U) [Mass/Vol] Negative Normal Negative [facility] Comment on above: Order Comment: Speci men Type: URINE SPECIMEN Ordering Facility: [facility] Address: [address] [place] [address] Result Comment: Cuto ff threshold at 1000 ng/mL. Performed By: #### U TOX2 #### [facility] CLIA [id number] [address] [place] [address] [place] BARBITURATES, URINE Negative Normal Negative [facility] Comment on above: Order Comment: Speci men Type: URINE SPECIMEN Ordering Facility: [facility] Address: [address] [place] [address] Result Comment: Cuto ff threshold at 200 ng/mL. Performed By: #### U TOX2 #### [facility] CLIA [id number] [address] [place] [address] [place] BENZODIAZEPINES, UR Negative Normal Negative [facility] Comment on above: Order Comment: Speci men Type: URINE SPECIMEN Ordering Facility: [facility] Address: [address] [place] [address] Result Comment: Cuto ff threshold at 200 ng/mL. Performed By: #### U TOX2 #### [facility] CLIA [id number] [address] [place] [address] [place] Cannabinoids Screen Ql (U) Negative Normal Negative [facility] Comment on above: Order Comment: Speci men Type: URINE SPECIMEN Ordering Facility: [facility] Address: [address] [place] [address] Result Comment: Cuto ff threshold at 50 ng/mL. Performed By: #### U TOX2 #### [facility] CLIA [id number] [address] [place] [address] [place] Cocaine Ql (U) Negative Normal Negative [facility] Comment on above: Order Comment: Speci men Type: URINE SPECIMEN Ordering Facility: [facility] Address: [address] [place] [address] Result Comment: Cuto ff threshold at 300 ng/mL. Performed By: #### U TOX2 #### [facility] CLIA [id number] [address] [place] [address] [place] Ethanol (U) [Mass/Vol] <11 Normal <11 [facility] Comment on above: Order Comment: Speci men Type: URINE SPECIMEN Ordering Facility: [facility] Address: [address] [place] [address] Performed By: #### U TOX2 #### [facility] CLIA [id number] [address] [place] [address] [place] Opiates Screen Ql (U) Negative Normal Negative [facility] Comment on above: Order Comment: Speci men Type: URINE SPECIMEN Ordering Facility: [facility] Address: [address] [place] [address] Result Comment: Cuto ff threshold at 300 ng/mL. Performed By: #### U TOX2 #### [facility] CLIA [id number] [address] [place] [address] [place] oxyCODONE cutoff Screen (U) [Mass/Vol] Negative Normal Negative [facility] Comment on above: Order Comment: Speci men Type: URINE SPECIMEN Ordering Facility: [facility] Address: [address] [place] [address] Result Comment: Cuto ff threshold at 100 ng/mL. Performed By: #### U TOX2 #### [facility] CLIA [id number] [address] [place] [address] [place] [facility] Phencyclidine Ql (U) Negative Normal Negative [facility] Comment on above: Order Comment: Speci men Type: URINE SPECIMEN Ordering Facility: [facility] Address: [address] [place] [address] Result Comment: Cuto ff threshold at 25 ng/mL. Performed By: #### U TOX2 #### [facility] [place] [id number] [address] [place] [address] [place] TSH SerPl-aCncon 04-23-2023 TSH Qn 1.670 m[IU]/L Normal 0.270-4.200 [facility] Comment on above: Order Comment: Speci men Type: BLOOD SPECIMEN Ordering Facility: [facility] Address: [address] [place] [address] Performed By: #### 2 132-9, 2284-8, 3016-3 #### [facility] IA [id number] [address] [place] [address] [place] [facility] Urinalysis complete panel (U )on 04-23-2023 Bilirubin Ql (U) Negative Normal Negative [facility] Comment on above: Order Comment: Speci men Type: BLOOD SPECIMEN Ordering Facility: [facility] Address: [address] [place] [address] Performed By: #### 2 132-9, 2284-8, 3016-3 #### [facility] CLIA [id number] [address] [place] [address] [place] Clarity (Unsp spec) Clear Normal Clear [facility] Comment on above: Order Comment: Speci men Type: BLOOD SPECIMEN Ordering Facility: [facility] Address: [address] [place] [address] Performed By: #### 2 132-9, 228-8, 3015-3 #### [facility] CLIA [id number] [place] [address] [place] Color (U) Yellow Normal Yellow [facility] Comment on above: Order Comment: Speci men Type: BLOOD SPECIMEN Ordering Facility: [facility] Address: [address] [place] [address] Performed By: #### 2 132-9, 8, 3 #### [facility] CLIA [id number] [place] [address] [place] Glucose Test strip (U) [Mass/Vol] Negative Normal Ne [facility] Comment on above: Order Comment: Speci men Type: BLOOD SPECIMEN Ordering Facility: [facility] Address: [address] [place] [address] Performed By: #### 2 132-9, 2284-02, 3 #### [facility] CLIA [id number] [place] [address] [place] Hemoglobin Ql (U) Negative Normal Negative [facility] Comment on above: Order Comment: Speci men Type: BLOOD SPECIMEN Ordering Facility: [facility] Address: [address] [address] Performed By: #### 2 132-9, 2283-8, 3 #### [facility] CLIA [id number] [place] [address] [place] Ketones Ql (U) Negative Normal Negative [facility] Comment on above: Order Comment: Speci men Type: BLOOD SPECIMEN Ordering Facility: [facility] Address: [address] [address] Performed By: #### 2 132-9, 2283-, 3016-3 #### [facility] CLIA [id number] [place] [address] [place] Leukocyte esterase Test strip Ql (U) Negative Normal Negative [facility] Comment on above: Order Comment: Speci men Type: BLOOD SPECIMEN Ordering Facility: [facility] Address: [address] [place] [address] Performed By: #### 2 132-9, 2284-8, 3015-3 #### [facility] CLIA [id number] [address] [place] [address] [place] Nitrite Ql (U) Negative Normal Negative [facility] Comment on above: Order Comment: Speci men Type: BLOOD SPECIMEN Ordering Facility: [facility] Address: [address] [place] [address] Performed By: #### 2 132-9, 2283-8, 3015-3 #### [facility] CLIA [id number] [address] [place] [address] [place] pH (U) 7.0 [pH] Normal 5.0-8.0 [facility] Comment on above: Order Comment: Speci men Type: BLOOD SPECIMEN Ordering Facility: [facility] Address: [address] [place] [address] Performed By: #### 2 132-9, 2283-8, 3015-3 #### [facility] CLIA [id number] [address] [place] [address] [place] Protein (U) [Mass/Vol] Negative Normal Negative [facility] Comment on above: Order Comment: Speci men Type: BLOOD SPECIMEN Ordering Facility: [facility] Address: [address] [place] [address] Performed By: #### 2 132-9, 4-8, 3015-3 #### [facility] CLIA [id number] [place] [address] [place] RBC LM.HPF (Urine sed) [#/Area] 0-3 /HPF Normal 0-3 /HPF [facility] Comment on above: Order Comment: Speci men Type: BLOOD SPECIMEN Ordering Facility: [facility] Address: [address] [place] [address] Performed By: #### 2 132-9, 2283-, 3 #### [facility] IA [id number] [address] [place] [address] [place] Specific gravity (U) [Rel density] <=1.005 Low 1 .005-1.030 [facility] Comment on above: Order Comment: Speci men Type: BLOOD SPECIMEN Ordering Facility: [facility] Address: [address] [place] [address] Performed By: #### 2 132-9, 2284-02, 3 #### [facility] IA [id number] [address] [place] [address] [place] Urobilinogen Ql (U) 0.2 EU/dL Normal 0.2-1.0 EU/dL [facility] Comment on above: Order Comment: Speci men Type: BLOOD SPECIMEN Ordering Facility: [facility] Address: [address] [place] [address] Performed By: #### 2 132-9, 2284-02, 3 #### [facility] [place] [id number] [address] [place] [address] [place] WBC LM.HPF (Urine sed) [#/Area] 0-5 /HPF Normal 0-5 /HPF [facility] Comment on above: Order Comment: Speci men Type: BLOOD SPECIMEN Ordering Facility: [facility] Address: [address] [place] [address] Performed By: #### 2 132-9, 8, 3 #### [facility] [place] [id number] [address] [place] [address] [place] Valproate [Mass/volume] in S kamari or PlasmaOrdered By: Paulo Strauss on 04-19-2023 Valproate [Mass/Vol] 71.0 ug/mL 50.0-100.0 [facility] Comment on above: Last dose: - Valproic Acid (in house)on 1 Valproic Acid (in house) 71.0 ug/mL Normal 50.0-100.0 [facility] Comment on above: Result Comment: Last dose: - PERFORMED BY: [place] [address] PATHOLOGIST ALGOLOGIST TIMUR PHILLIPS M.D. Performed By: #### C MP, CBC, ACET, TOSHIA, ETOH #### [facility] [address] Cholesterol [Mass/volume] in Serum or PlasmaOrdered By: Paulo Strauss on 04-16-2023 Cholesterol [Mass/Vol] 171 mg/dL 140-200 [facility] Comment on above: Chol less than 200 m g/dl low riskChol 201-239 mg/dl borderline riskChol 240 mg/dl and greater high risk Cholesterol in LDL Calc [Mas s/Vol]Ordered By: Pualo Strauss on 04-16-2023 Cholesterol in LDL [Mass/Vol] 94 mg/dL 0-100 [facility] Comment on above: LDL ATP III CLASSIFI CATIONLDL less than 100 mg/dL OptimalLDL 100-129 mg/dL Near or above optimalLDL 130-159 mg/dL Borderline highLDL 160-189 mg/dL HighLDL greater than 189 mg/dL Very high Cholesterol in VLDL Calc [Ma ss/Vol]Ordered By: Paulo Strauss on 04-16-2023 Cholesterol in VLDL [Mass/Vol] 30 mg/dL [facility] ECG 12 lead ECGon 04-16-[address] [facility] [place] [address] [place] [address] Electrocardiograph Report Signed Patient: Edward Crowder MR#: [id number] : 1970 Acct:[id number] Age/Sex: 52 / M ADM Date: 04/15/23 Loc: Room: [address] [place] [address] Type: ADM IN Attending Dr: Paulo Strauss MD Ordering Provider: Paulo Strauss MD Date of Service: 04/16/2312/02/499 ECG/ECG 12 lead ECG: medications Copies to: Test Reason : Blood Pressure : / mmHG Vent. Rate : 083 BPM Atrial Rate : 083 BPM P-R Int : 144 ms QRS Dur : 088 ms QT Int : 374 ms P-R-T Axes : 054 076 046 degrees QTc Int : 439 ms Normal sinus rhythm Normal ECG When compared with ECG of 12-FEB-2023 07:20, No significant change was found Confirmed by GWENDOLYN AMOS FACERIC ([id number]) on 04/16/2023 10:22:24 AM Referred By: Electronically Signed By:ERIC MELENDEZ MD FAC Transcribed By: MUS Signed By Brayden Melendez MD 04/16/23 1022 Normal [facility] Lipid Panelon 04-16-2023 Cholesterol [Mass/Vol] 171 mg/dL Normal 140-200 [facility] Comment on above: Result Comment: Chol less than 200 mg/dl low risk Chol 201-239 mg/dl borderline risk Chol 240 mg/dl and greater high risk Performed By: #### C MP, CBC, ACET, TOSHIA, ETOH #### [facility] [address] Cholesterol in HDL [Mass/Vol] 46 mg/dL Normal 23-92 [facility] Comment on above: Result Comment: HDL CHOL ATP-III CLASSIFICATION Cardiovascular Risk HDL > or equal to 60 mg/dL LOW HDL < 40 mg/dL HIGH Performed By: #### C MP, CBC, ACET, TOSHIA, ETOH #### [facility] [address] [place] [address] [facility] Cholesterol.total/Cholestero l in HDL [Mass ratio] 3.7 {ratio} Normal <5.0 [facility] Comment on above: Performed By: #### C MP, CBC, ACET, TOSHIA, ETOH #### [facility] [address] [place] [id number] [facility] LDL Cholesterol,Calculated 94 mg/dL Normal 0-100 [facility] Comment on above: Result Comment: LDL ATP III CLASSIFICATION LDL less than 100 mg/dL Optimal LDL 100-129 mg/dL Near or above optimal LDL 130-159 mg/dL Borderline high LDL 160-189 mg/dL High LDL greater than 189 mg/dL Very high Performed By: #### C MP, CBC, ACET, TOSHIA, ETOH #### [facility] [address] Triglyceride w/Reflex 153 mg/dL High 0-149 [facility] Comment on above: Result Comment: TRIG ATP III CLASSIFICATION TRIG less than 150 mg/dL Normal TRIG 150-199 mg/dL Borderline high TRIG 200-500 mg/dL High TRIG greater than 500 mg/dL Very high Standard traceable to the Center for Disease Conrtrol and Prevention (CDC) test method. Performed By: #### C MP, CBC, ACET, TOSHIA, ETOH #### [facility] [address] VLDL CHOLESTEROL 30 mg/dL Normal [facility] Comment on above: Performed By: #### C MP, CBC, ACET, TOSHIA, ETOH #### [facility] [address] Provider Note - ED Care Manriquez sitionon 04-16-2023 Provider Note - ED Care Transition ED Care Transition: Handoff-Received: Handoff Comments Pending psych placement EPAT Chart Review: ED NOTES ED NOTES: I accepted care of the patient detailed below with disposition pending epat placement The patient had initially presented to the department complaining of pain left upper quadrant, states he been seen at [facility] for the same complaint. States the pain is keeping him up at night and not improved by the Prilosec they discharged him home with. Discussed plan of care with the patient, repeat labs and imaging. Discussed medicating with Pepcikaya Maalox as the patient did not want any narcotics. EKG was performed at 911 with ventricular rate of 97, as read by me, showed normal sinus rhythm with normal axis normal intervals. Unremarkable ST and T wave pattern, no evidence of acute ischemia or other acute findings. Laboratory work-up was relatively unremarkable, unremarkable CBC and metabolic panels, lactate and lipase. As the nurse was medicating him and speaking with the patient he started to become extremely agitated, anxious. Explained that he had not been taking his psychiatric medications in some time, had not slept in about 4 days due to this pain. Explained that he is not hearing voices and seeing things. Described that the voices had caused his abdominal pain and they were trying to kill him from the inside. Patient became quite agitated, was given Haldol, Benadryl and Ativan. Negative acute tox panel, negative urine drug screen. Negative CT abdomen/pelvis. Patient MEDICALLY CLEARED and ultimately referred to psychiatry for psychiatric evaluation Patient has been accepted to [facility] under the care of Dr. Santo. EPAT recommendation was for admission, patient is currently pending placement CLINICAL IMPRESSION Diagnosis/Annotation: ED Dx Name:Auditory hallucinations Code:R44.0 Name:Suicidal ideations Code:R45.851 Disposition: transferred ATTESTATION CRITICAL CARE TIME Is this a critically ill patient: no Electronic Signatures: Miryam Patel (OUTSIDE SALES ACCOUNT EXECUTIVE-FLIGHT TECHNICIAN) (Signed 16-Apr-2023 01:01) Authored: ED Notes, Handoff-Received, Clinical Impression, Attestation, Chart Review, Scores Last Updated: 16-Apr-2023 01:01 by Miryam Patel (OUTSIDE SALES ACCOUNT EXECUTIVE-FLIGHT TECHNICIAN) Normal [facility] Serum or plasma high density lipoprotein (HDL) cholesterol measurementOrdered By: Paulo Strauss on 04-16-2023 Cholesterol in HDL [Mass/Vol] 46 mg/dL 23-92 [facility] Comment on above: HDL CHOL ATP-III CLA SSIFICATION Cardiovascular RiskHDL > or equal to 60 mg/dL LOWHDL < 40 mg/dL HIGH Serum or plasma total choles terol/high density lipoprotein (HDL) cholesterol mass ratOrdered By: Paulo Strauss on 04-16-2023 Cholesterol.total/Cholestero l in HDL [Mass ratio] 3.7 {ratio} <5.0 [facility] Thyroid Stim Hormone w/Rflxo n 04-16-2023 Thyroid Stim Hormone w/Rflx 1.69 u[iU]/mL Normal 0.45-5.33 [facility] Comment on above: Performed By: #### C MP, CBC, ACET, TOSHIA, ETOH #### [facility] [address] [place] [address] Thyrotropin [Units/volume] i n Serum or PlasmaOrdered By: Paulo Strauss on 04-16-2023 TSH Qn 1.69 m[IU]/L 0.45-5.33 [facility] Triglyceride [Mass/volume] i n Serum or PlasmaOrdered By: Paulo Strauss on 04-16-2023 Triglyceride [Mass/Vol] 153 mg/dL 0-149 [facility] Comment on above: TRIG ATP III CLASSIF ICATIONTRIG less than 150 mg/dL NormalTRIG 150-199 mg/dL Borderline highTRIG 200-500 mg/dL High TRIG greater than 500 mg/dL Very highStandard traceable to the Center for Disease Conrtrol and Prevention (CDC) test method. Vitamin D 25 Hydroxy Totalon 04-16-2023 Vitamin D 25 Hydroxy Total 29.0 ng/mL Low 30-100 [facility] Comment on above: Result Comment: JIM MIN D STATUS 25(OH)VITAMIN D RANGE (ng/mL) Deficient <20 Insufficient 20 to <30 Sufficient 30 to 100 Reference: Bradford Haddad, Chris MENDOZA, et al. Evaluation,treatment, and prevention of vitamin D deficiency; an Endocrine Society clinical practice guideline. JCEM. 2010; 96(7):1911-30. PERFORMED BY: [place] [address] PATHOLOGIST ALGOLOGIST TIMUR PHILLIPS M.D. Performed By: #### C MP, CBC, ACET, TOSHIA, ETOH #### [address] Vitamin D+Metabolites [Mass/ volume] in Serum or PlasmaOrdered By: Paulo Strauss on 04-16-2023 Vitamin D+Metabolites [Mass/Vol] 29.0 ng/mL 30- 100 [facility] Comment on above: VITAMIN D STATUS 25( [place])VITAMIN D RANGE (ng/mL) Deficient <20 Insufficient 20 to <30Sufficient 30 to 100Reference: Bradford Haddad, Chris MENDOZA, et al. Evaluation,treatment, and prevention of vitamin D deficiency; an Endocrine Society clinical practice guideline. JCEM. 2010; 96(7):1911-30. Alanine aminotransferase [En zymatic activity/volume] in Serum or PlasmaOrdered By: Nir England on 04-15-2023 ALT [Catalytic activity/Vol] 39 U/L 7-52 [facility] Albumin [Mass/volume] in Ser um or Plasma by Bromocresol green (BCG) dye binding methoOrdered By: Nir England on 04-15-2023 Albumin BCG dye [Mass/Vol] 4.4 g/dL 3.5-5.7 [facility] Alkaline phosphatase [Enzyma tic activity/volume] in Serum or PlasmaOrdered By: Nir England on 04-15-2023 ALP [Catalytic activity/Vol] 99 U/L 34-104 [facility] Amphetamine Screen Ql (U)Ord ered By: Nir England on 04-15-2023 Amphetamines Ql (U) Negative Negative [facility] Aspartate aminotransferase [ Enzymatic activity/volume] in Serum or PlasmaOrdered By: Nir England on 04-15-2023 AST [Catalytic activity/Vol] 30 U/L 13-39 [facility] Barbiturates [Presence] in U rine by Screen methodOrdered By: Nir England on 04-15-2023 Barbiturates Screen Ql (U) Negative Negative [facility] Basophils Auto (Bld) [#/Vol] Ordered By: Nir England on 04-15-2023 Basophils (Bld) [#/Vol] 0.1 10*3/uL 0.0-0.2 [facility] Basophils/100 WBC Auto (Bld) Ordered By: Nir England on 04-15-2023 Basophils/100 WBC (Bld) 1.0 % . [facility] Benzodiazepines Screen Ql (U )Ordered By: Nir England on 04-15-2023 Benzodiazepines Ql (U) Negative Negative Fi [facility] Benzoylecgonine [Presence] i n Urine by Screen methodOrdered By: Nir England on 04-15-2023 Benzoylecgonine Screen Ql (U) Negative Negati ve [facility] Bilirubin Test strip Ql (U)O rdered By: Nir England on 04-15-2023 Bilirubin Ql (U) Negative Negative [facility] Bilirubin.total [Mass/volume ] in Serum or PlasmaOrdered By: Nir England on 04-15-2023 Bilirubin [Mass/Vol] 0.3 mg/dL 0.3-1.0 [facility] Calcium [Mass/volume] in Ser um or PlasmaOrdered By: Nir England on 04-15-2023 Calcium [Mass/Vol] 8.9 mg/dL 8.6-10.3 [facility] Cannabinoids [Presence] in U rine by Screen methodOrdered By: Nir England on 04-15-2023 Cannabinoids Screen Ql (U) Negative Negative [facility] Comment on above: These are unconfirme d results and should not be used for legal purposes. Drug Cut-Off Concentration: AMPH 1000 ng/mL TOMÁS 200 ng/mL SWETHA 200 ng/mL COCM 300 ng/mL OP 300 ng/mL PCP 25 ng/mL THC 20 ng/mL Carbon dioxide, total [Moles /volume] in Serum or PlasmaOrdered By: Nir England on 04-15-2023 CO2 [Moles/Vol] 24.9 mmol/L 21.0-31.0 [facility] Chloride [Moles/volume] in S kamari or PlasmaOrdered By: Nir England on 04-15-2023 Chloride [Moles/Vol] 103 mmol/L 98-107 [facility] Color Auto (U)Ordered By: Jese England on 04-15-2023 Color (U) Yellow Yellow [facility] Complete Blood Count Auto Di ffon 04-15-2023 Basophils (Bld) [#/Vol] 0.1 10*3/uL Normal 0.0-0.2 [facility] Comment on above: Result Comment: PERF ORMED BY: [place] [address] PATHOLOGIST ALGOLOGIST TIMUR PHILLIPS M.D. Performed By: #### E JOHN, CBC, CMP #### [facility] [address] [place] [address] [place] Basophils/100 WBC (Bld) 1.0 % Normal . [facility] Comment on above: Performed By: #### E JOHN, CBC, CMP #### [facility] [address] [place] [address] [place] Eosinophils (Bld) [#/Vol] 0.1 10*3/uL Normal 0.0-0.45 [facility] Comment on above: Performed By: #### E JOHN CBC, CMP #### [address] Eosinophils/100 WBC (Bld) 0.8 % Normal . [facility] Comment on above: Performed By: #### E JOHN CBC, CMP #### [address] Erythrocyte distribution wid th (RBC) [Ratio] 13.4 % Normal 12.0-14.8 [facility] Comment on above: Performed By: #### E JOHN CBC, CMP #### [address] Hematocrit (Bld) [Volume fraction] 45.3 % Normal 38.8-50.0 [facility] Comment on above: Performed By: #### E JOHN CBC, CMP #### [address] Hemoglobin (Bld) [Mass/Vol] 15.2 g/dL Normal 13.0-17. 0 [facility] Comment on above: Performed By: #### E JOHN CBC, CMP #### [address] Lymphocytes (Bld) [#/Vol] 1.2 10*3/uL Normal 1.00-4.8 [facility] Comment on above: Performed By: #### E JOHN CBC, CMP #### [address] Lymphocytes/100 WBC (Bld) 12.6 % Normal . [facility] Comment on above: Performed By: #### E JOHN, CBC, CMP #### [address] MCH (RBC) [Entitic mass] 30.5 pg Normal 27.5-35.2 [facility] Comment on above: Performed By: #### E JOHN, CBC, CMP #### [address] [place] [address] [place] MCV (RBC) [Entitic vol] 90.9 fL Normal 83.5-101 [facility] Comment on above: Performed By: #### E JOHN, CBC, CMP #### [address] Mean Corpuscular HGB Conc 33.5 g/dL Normal 32.5-35.6 [facility] Comment on above: Performed By: #### E JOHN, CBC, CMP #### [address] Monocytes (Bld) [#/Vol] 1.2 10*3/uL High 0.0-0.8 [facility] Comment on above: Performed By: #### E JOHN, CBC, CMP #### [address] Monocytes/100 WBC (Bld) 17.17 % Normal 0.00-20.00 [facility] Comment on above: Performed By: #### E JOHN, CBC, CMP #### [address] Monocytes/100 WBC (Bld) 13.0 % Normal . [facility] Comment on above: Performed By: #### E JOHN, CBC, CMP #### [address] Neutrophils (Bld) [#/Vol] 6.9 10*3/uL Normal 1.8-7.7 [facility] Comment on above: Performed By: #### E JOHN, CBC, CMP #### [place] [address] [place] Neutrophils/100 WBC (Bld) 72.6 % Normal . [facility] Comment on above: Performed By: #### E JOHN, CBC, CMP #### [place] [address] [place] NRBC% 0.1 /100{WBC} Normal 0-0.5 [facility] Comment on above: Performed By: #### E JOHN, CBC, CMP #### [address] Platelet mean volume (Bld) [Entitic vol] 7.7 fL Normal 6.6-10.1 [facility] Comment on above: Performed By: #### E JOHN CBC, CMP #### [address] Platelets (Bld) [#/Vol] 329 10*3/uL Normal 150-450 [facility] Comment on above: Performed By: #### E JOHN CBC, CMP #### [address] RBC (Bld) [#/Vol] 4.99 10*6/uL Normal 3.90-5.60 [facility] Comment on above: Performed By: #### E JOHN CBC, CMP #### [address] WBC (Bld) [#/Vol] 9.5 10*3/uL Normal 4.1-10.5 [facility] Comment on above: Performed By: #### E JOHN CBC, CMP #### [address] Comprehensive Metabolic Pane darlene 04-15-2023 Albumin [Mass/Vol] 4.4 g/dL Normal 3.5-5.7 [facility] Comment on above: Performed By: #### E JOHN CBC, CMP #### [address] Albumin/Globulin [Mass ratio] 1.6 {ratio} Normal [facility] Comment on above: Performed By: #### E JOHN CBC, CMP #### [address] ALP [Catalytic activity/Vol] 99 U/L Normal 34-104 [facility] Comment on above: Performed By: #### E JOHN CBC, CMP #### [address] ALT [Catalytic activity/Vol] 39 U/L Normal 7-52 [facility] Comment on above: Performed By: #### E BUCKY LOPEZ, CMP #### [facility] [address] Anion gap [Moles/Vol] 13.5 mmol/L Normal 6.0-15.0 [facility] Comment on above: Performed By: #### E JOHN CBC, CMP #### [facility] [address] AST [Catalytic activity/Vol] 30 U/L Normal 13-39 [facility] Comment on above: Performed By: #### E BUCKY LOPEZ, CMP #### [address] Bilirubin [Mass/Vol] 0.3 mg/dL Normal 0.3-1.0 [facility] Comment on above: Performed By: #### E JOHN CBC, CMP #### [address] Calcium [Mass/Vol] 8.9 mg/dL Normal 8.6-10.3 [facility] Comment on above: Performed By: #### E BUCKY LOPEZ, CMP #### [address] Chloride [Moles/Vol] 103 mmol/L Normal 98-107 [facility] Comment on above: Performed By: #### E JOHN CBC, CMP #### [facility] [address] [place] [address] CO2 [Moles/Vol] 24.9 mmol/L Normal 21.0-31.0 [facility] Comment on above: Performed By: #### E JOHN CBC, CMP #### [facility] [address] [place] [address] Creatinine [Mass/Vol] 1.20 mg/dL Normal 0.70-1.30 [facility] Comment on above: Performed By: #### E JOHN CBC, CMP #### [facility] [address] [place] [address] [place] Creatinine Clr Calc Pharmacy 84.27 Normal [facility] Comment on above: Result Comment: PERF ORMED BY: [place] [address] PATHOLOGIST ALGOLOGIST TIMUR PHILLIPS M.D. Performed By: #### E JOHN CBC, CMP #### [facility] [address] GFR/1.73 sq M.predicted MDRD (S/P/Bld) [Vol rate/Area] mL/min/{1.73_m2} Normal [facility] Comment on above: Performed By: #### E JOHN CBC, CMP #### [facility] [address] Globulin (S) [Mass/Vol] 2.8 g/dL Normal [facility] Comment on above: Performed By: #### E JOHN CBC, CMP #### [address] Glucose [Mass/Vol] 100 mg/dL Normal 70-100 [facility] Comment on above: Result Comment: [place] Glucose Reference Range is dependent on time and content of last meal. Glucose of more than 200 mg/dL in a nonstressed, ambulatory subject supports the diagnosis of Diabetes Mellitus. ADA recommended reference range Performed By: #### E JOHN CBC, CMP #### [facility] [address] Potassium [Moles/Vol] 4.4 mmol/L Normal 3.5-5.1 [facility] Comment on above: Performed By: #### E JOHN CBC, CMP #### [facility] [address] [place] [address] [place] Protein [Mass/Vol] 7.2 g/dL Normal 6.4-8.9 [facility] Comment on above: Performed By: #### E JOHN CBC, CMP #### [facility] [address] Sodium [Moles/Vol] 137 mmol/L Normal 136-145 [facility] Comment on above: Performed By: #### E JOHN, CBC, CMP #### [facility] [address] Urea nitrogen [Mass/Vol] 22 mg/dL Normal 7- [facility] Comment on above: Performed By: #### E JOHN, CBC, CMP #### [facility] [address] Creatinine [Mass/volume] in Serum or PlasmaOrdered By: Nir England on 04-15-2023 Creatinine [Mass/Vol] 1.20 mg/dL 0.70-1.30 [facility] Drug Screen,Urineon 04-15-20 23 Amphetamine Screen,Urine Negative Normal Negative [facility] Comment on above: Performed By: #### C K #### [place] [address] [place] Barbiturate Screen,Urine Negative Normal Negative [facility] Comment on above: Performed By: #### C K #### [place] [address] [place] Benzodiazepines Screen,Urine Negative Normal Negativ e [facility] Comment on above: Performed By: #### C K #### [address] Cannabinoid Screen,Urine Negative Normal Negative [facility] Comment on above: Result Comment: Thes e are unconfirmed results and should not be used for legal purposes. Drug Cut-Off Concentration: AMPH 1000 ng/mL TOMÁS 200 ng/mL SWETHA 200 ng/mL COCM 300 ng/mL OP 300 ng/mL PCP 25 ng/mL THC 20 ng/mL PERFORMED BY: [place] [address] PATHOLOGIST ALGOLOGIST TIMUR PHILLIPS M.D. Performed By: #### C K #### [place] [address] [place] Cocaine Screen,Urine Negative Normal Negative [facility] Comment on above: Performed By: #### C K #### [place] [address] [place] Opiate Screen,Urine Negative Normal Negative [facility] Comment on above: Performed By: #### C K #### [facility] [address] Phencyclidine Screen,Urine Negative Normal Negative [facility] Comment on above: Performed By: #### C K #### [facility] [address] Eosinophils Auto (Bld) [#/Vo l]Ordered By: Nir England on 04-15-2023 Eosinophils (Bld) [#/Vol] 0.1 10*3/uL 0.0-0.45 [facility] Eosinophils/100 WBC Auto (Bl d)Ordered By: Nir England on 04-15-2023 Eosinophils/100 WBC (Bld) 0.8 % . [facility] Erythrocyte distribution wid th Auto (RBC) [Ratio]Ordered By: Nir England on 04-15-2023 Erythrocyte distribution wid th (RBC) [Ratio] 13.4 % 12.0-14.8 [facility] Ethanol [Mass/volume] in Ser um or PlasmaOrdered By: Nir England on 04-15-2023 Ethanol [Mass/Vol] 33 mg/dL [facility] Ethanol [Mass/Vol] 0.033 % [facility] Ethyl Alcohol Profileon Ethanol [Mass/Vol] 33 mg/dL Normal [facility] Comment on above: Performed By: #### E JOHN, CBC, CMP #### [facility] [address] Percent Ethanol 0.033 % Normal [facility] Comment on above: Result Comment: PERF ORMED BY: [place] [address] PATHOLOGIST ALGOLOGIST TIMUR PHILLIPS M.D. Performed By: #### E JOHN, CBC, CMP #### [facility] [address] Globulin Calc (S) [Mass/Vol] Ordered By: Nir England on 04-15-2023 Globulin (S) [Mass/Vol] 2.8 g/dL [facility] Glucose [Mass/volume] in Ser um or PlasmaOrdered By: Nir England on 04-15-2023 Glucose [Mass/Vol] 100 mg/dL 70-100 [facility] Comment on above: ADA recommended refe rence rangeRandom Glucose Reference Range is dependent on time and content of last meal. Glucose of more than 200 mg/dL in a nonstressed, ambulatory subject supports the diagnosis of Diabetes Mellitus. Hematocrit Auto (Bld) [Volum e fraction]Ordered By: Nir England on 04-15-2023 Hematocrit (Bld) [Volume fraction] 45.3 % 3 8.8-50.0 [facility] Hemoglobin [Mass/volume] in BloodOrdered By: Nir England on 04-15-2023 Hemoglobin (Bld) [Mass/Vol] 15.2 g/dL 13.0-17. 0 [facility] Ketones Auto test strip (U) [Mass/Vol]Ordered By: Nir Englnad on 04-15-2023 Ketones (U) [Mass/Vol] Negative Negative Fi [facility] Leukocytes [#/volume] correc bia for nucleated erythrocytes in Blood by Automated counOrdered By: Nir England on 04-15-2023 WBC corrected for nucl RBC A uto (Bld) [#/Vol] 9.5 10*3/uL 4.1-10.5 [facility] Lymphocytes Auto (Bld) [#/Vo l]Ordered By: Nir England on 04-15-2023 Lymphocytes (Bld) [#/Vol] 1.2 10*3/uL 1.00-4.8 [facility] Lymphocytes/100 WBC Auto (Bl d)Ordered By: Nir England on 04-15-2023 Lymphocytes/100 WBC (Bld) 12.6 % . [facility] MCH Auto (RBC) [Entitic mass ]Ordered By: Nir England on 04-15-2023 MCH (RBC) [Entitic mass] 30.5 pg 27.5-35.2 [facility] MCHC Auto (RBC) [Mass/Vol]Or dered By: Nir England on 04-15-2023 MCHC (RBC) [Mass/Vol] 33.5 g/dL 32.5-35.6 [facility] MCV Auto (RBC) [Entitic vol] Ordered By: Nir England on 04-15-2023 MCV (RBC) [Entitic vol] 90.9 fL 83.5-101 F [facility] Monocyte distribution width [Entitic volume] in Blood by AutomatedOrdered By: Nir England on 04-15-2023 Monocyte distribution width Auto (Bld) [Entitic vol] 17.17 % 0.00-20.00 [facility] Monocytes Auto (Bld) [#/Vol] Ordered By: Nir England on 04-15-2023 Monocytes (Bld) [#/Vol] 1.2 10*3/uL 0.0-0.8 [facility] Monocytes/100 WBC Auto (Bld) Ordered By: Nir England on 04-15-2023 Monocytes/100 WBC (Bld) 13.0 % . F [facility] Neutrophils Auto (Bld) [#/Vo l]Ordered By: Nir England on 04-15-2023 Neutrophils (Bld) [#/Vol] 6.9 10*3/uL 1.8-7.7 [facility] Neutrophils/100 WBC Auto (Bl d)Ordered By: Nir England on 04-15-2023 Neutrophils/100 WBC (Bld) 72.6 % . [facility] Nitrite Test strip Ql (U)Ord ered By: Nir England on 04-15-2023 Nitrite Ql (U) Negative Negative [facility] No Panel InformationOrdered By: Nir England on 04-15-2023 Estimated GFR (CKD-EPI) > 60.0 mL/Min [facility] Creatinine Clearanc e (Chem 84.27 [facility] Nucleated erythrocytes [Pres ence] in Blood by Automated countOrdered By: Nir England on 04-15-2023 Nucleated RBC Auto Ql (Bld) 0.1 /100{WBC} 0-0.5 [facility] Opiates [Presence] in Urine by Screen methodOrdered By: Nir England on 04-15-2023 Opiates Screen Ql (U) Negative Negative [facility] Phencyclidine Screen Ql (U)O rdered By: Nir England on 04-15-2023 Phencyclidine Ql (U) Negative Negative [facility] Platelet mean volume Auto (B ld) [Entitic vol]Ordered By: Nir England on 04-15-2023 Platelet mean volume (Bld) [Entitic vol] 7.7 fL 6.6-10.1 [facility] Platelets Auto (Bld) [#/Vol] Ordered By: Nir England on 04-15-2023 Platelets (Bld) [#/Vol] 329 10*3/uL 150-450 [facility] Potassium [Moles/volume] in Serum or PlasmaOrdered By: Nir England on 04-15-2023 Potassium [Moles/Vol] 4.4 mmol/L 3.5-5.1 [facility] Protein Auto test strip (U) [Mass/Vol]Ordered By: Nir England on 04-15-2023 Protein (U) [Mass/Vol] Negative Negative Fi [facility] Protein [Mass/volume] in Ser um or PlasmaOrdered By: Nir England on 04-15-2023 Protein [Mass/Vol] 7.2 g/dL 6.4-8.9 [facility] RBC Auto (Bld) [#/Vol]Ordere d By: Nir England on 04-15-2023 RBC (Bld) [#/Vol] 4.99 10*6/uL 3.90-5.60 [facility] Serum or plasma albumin/glob ulin mass ratioOrdered By: Nir England on 04-15-2023 Albumin/Globulin [Mass ratio] 1.6 {ratio} [facility] Serum or plasma anion gap de terminationOrdered By: Nir England on 04-15-2023 Anion gap [Moles/Vol] 13.5 mmol/L 6.0-15.0 [facility] Sodium [Moles/volume] in Ser um or PlasmaOrdered By: Nir England on 04-15-2023 Sodium [Moles/Vol] 137 mmol/L 136-145 [facility] Specific gravity Auto test s trip (U) [Rel density]Ordered By: Nir England on 04-15-2023 Specific gravity (U) [Rel density] 1.011 1.001-1.030 [facility] Urea nitrogen [Mass/volume] in Serum or PlasmaOrdered By: Nir England on 04-15-2023 Urea nitrogen [Mass/Vol] 22 mg/dL 02-03 [facility] Urinalysison 04-15-2023 Appearance (U) Clear Normal Clear [facility] Comment on above: Order Comment: Name Collection Type:: Clean-Voided Midstream Performed By: #### C K #### [facility] [address] [place] [address] Bilirubin,Urine Negative Normal Negative [facility] Comment on above: Order Comment: Name Collection Type:: Clean-Voided Midstream Performed By: #### C K #### [address] Color (U) Yellow Normal Yellow [facility] Comment on above: Order Comment: Name Collection Type:: Clean-Voided Midstream Performed By: #### C K #### [address] Glucose Ql (U) Normal Normal Normal [facility] Comment on above: Order Comment: Name Collection Type:: Clean-Voided Midstream Performed By: #### C K #### [place] [address] [place] Ketones Ql (U) Negative Normal Negative [facility] Comment on above: Order Comment: Name Collection Type:: Clean-Voided Midstream Performed By: #### C K #### [facility] [address] [place] [address] [place] Leukocyte esterase Test stri p Ql (U) Negative Normal Negative [facility] Comment on above: Order Comment: Name Collection Type:: Clean-Voided Midstream Performed By: #### C K #### [place] [address] [place] Nitrite,Urine Negative Normal Negative [facility] Comment on above: Order Comment: Name Collection Type:: Clean-Voided Midstream Performed By: #### C K #### [place] [address] [place] Occult Blood,Urine Negative Normal Negative [facility] Comment on above: Order Comment: Name Collection Type:: Clean-Voided Midstream Result Comment: PERF ORMED BY: [place] [address] PATHOLOGIST ALGOLOGIST TIMUR PHILLIPS M.D. Performed By: #### C K #### [facility] [address] [place] [address] pH (U) 7.5 [pH] Normal 5.0-9.0 [facility] Comment on above: Order Comment: Name Collection Type:: Clean-Voided Midstream Performed By: #### C K #### [address] Protein,Urine Negative Normal Negative [facility] Comment on above: Order Comment: Name Collection Type:: Clean-Voided Midstream Performed By: #### C K #### [address] Specificy [place],Urine 1.011 Normal 1.001-1.030 [facility] Comment on above: Order Comment: Name Collection Type:: Clean-Voided Midstream Performed By: #### C K #### [address] Urobilinogen,Urine Normal Normal Normal [facility] Comment on above: Order Comment: Name Collection Type:: Clean-Voided Midstream Performed By: #### C K #### [address] Urine clarity by refractomet ry automatedOrdered By: Nir England on 04-15-2023 Clarity Refractometry automated (U) Clear Clear [facility] Urine glucose measurement by automated test strip (mass/volume)Ordered By: Nir England on 04-15-2023 Glucose Auto test strip (U) [Mass/Vol] Normal mg/dL Normal [facility] Urine hemoglobin detection b y automated test stripOrdered By: Nir England on 04-15-2023 Hemoglobin Auto test strip Ql (U) Negative Ne gative [facility] Urine leukocyte esterase det ection by automated test stripOrdered By: Nir England on 04-15-2023 Leukocyte esterase Auto test strip Ql (U) Negative Negative [facility] Urobilinogen Auto test strip (U) [Mass/Vol]Ordered By: Nir England on 04-15-2023 Urobilinogen (U) [Mass/Vol] Normal mg/dL Normal [facility] WBC Auto (Bld) [#/Vol]Ordere d By: Nir England on 04-15-2023 WBC (Bld) [#/Vol] 9.5 10*3/uL 4.1-10.5 [facility] pH Auto test strip (U)Ordere d By: Nir England on 04-15-2023 pH (U) 7.5 [pH] 5.0-9.0 [facility] Risk Screen - Adult Emergenc yon 04-06-2023 Risk Screen - Adult Emergency Preferred Language: Preferred Language: Preferred Language for Discussing Health Care (patient/designee)Tajik Patient Preferred Pharmacy: Patient Preferred Pharmacy Statement: I have reviewed and updated the patient's preferred pharmacy selection for today's visit. Advanced Directives: Advance Directive/DNRno Family Violence Adult: Abuse Screen: Are you or have you been threatened or abused physically, emotionally, or sexually by anyoneno Learning Assessment (Patient): Learning Assessment (Patient): Patient is Able to be Assessed for Learningyes Factors Influencing Readiness to Learnacuteness of illness Factors that Impact Ability to Learnnone Devices/Methods Used to Communicatenone Learning Preferencesaudio Cultural Considerationsnone Developmental Considerationsnone Sabianist Considerationsnone Learning Assessment (Other Learner): Learning Assessment (Other Learner): Other learner availableno Pressure Injury/TB/Substance: Pressure Injury: Do you have a coughno Smoking Statusmoderate user (uses 11-30 cig/day, OR 0.5-1.5 ppd, OR 2-3 cans/pouches loose leaf tobacco per week, OR 0.5-1.5 vape pods per day) (1) Tobacco Cessation Education (provide if tobacco use within the last 12 mos)not applicable Alcohol Usehistory of abuse(1) Drug Usehistory of abuse meth (1) Drug 2 Usehistory of abuse fentanyl (1) Admission Risk Screen: Significant IndicatorsComplete CAGE: CAGE: Is this an injured patient at a Trauma Center ([facility]/[place]): no Electronic Signatures: Nir Kearney (RN) (Signed 06-Apr-2023 00:09) Authored: Preferred Language, Patient Preferred Pharmacy, Advanced Directives, Family Violence Adult, Learning Assessment (Patient), Learning Assessment (Other Learner), Pressure Injury/TB/Substance, Pressure Injury, CAGE Last Updated: 06-Apr-2023 00:09 by Nir Kearney (RN) References: 1. Data Referenced From Consult - Psychiatry 05-Apr-2023 19:07 Normal [facility] ACUTE TOXICOLOGY PANEL, BLOO Don 04-05-2023 Acetaminophen [Mass/Vol] ug/mL Normal 10.0 - 30.0 [facility] Comment on above: Performed By: #### D RUBL ####[facility] [place], [place] [id number] Ethanol [Mass/Vol] 61 mg/dL Abnormal [facility] Comment on above: Result Comment: FOR MEDICAL USE ONLY. . REF VALUES <10 Performed By: #### D RUBL ####[facility] [place], [place] [id number] SALICYLATE <3 Normal 4 - 20 [facility] Comment on above: Performed By: #### D RUBL ####[facility] [place], [place] [id number] CBC AND DIFFERENTIALon 04-05 % AUTOMATED IMMATURE GRAN 0.5 % Normal 0.0 - 0.9 [facility] Comment on above: Result Comment: Beatriz ture Granulocyte Count (IG) includes promyelocytes, myelocytes and metamyelocytes but does not include bands. Percent differential counts (%) should be interpreted in the context of the absolute cell counts (cells/L). Performed By: #### C BCDF #### [facility] [address] [place], [place] [id number] Basophils (Bld) [#/Vol] 0.02 10*3/uL Normal 0.00 - 0.1 0 [facility] Comment on above: Performed By: #### C BCDF #### [address] [id number] Basophils/100 WBC (Bld) 0.2 % Normal 0.0 - 2.0 [facility] Comment on above: Performed By: #### C BCDF #### [address] [id number] Eosinophils (Bld) [#/Vol] 0.02 10*3/uL Normal 0.00 - 0 .70 [facility] Comment on above: Performed By: #### C BCDF #### [address] [id number] Eosinophils/100 WBC (Bld) 0.2 % Normal 0.0 - 6.0 [facility] Comment on above: Performed By: #### C BCDF #### [address] [id number] Erythrocyte distribution wid th (RBC) [Ratio] 12.0 % Normal 11.5 - 14.5 [facility] Comment on above: Performed By: #### C BCDF #### [address] [id number] Hematocrit (Bld) [Volume fraction] 47.4 % Normal 4 1.0 - 52.0 [facility] Comment on above: Performed By: #### C BCDF #### [address] [id number] Hemoglobin (Bld) [Mass/Vol] 15.8 g/dL Normal 13.5 - 1 7.5 [facility] Comment on above: Performed By: #### C BCDF #### [address] [id number] Lymphocytes (Bld) [#/Vol] 1.58 10*3/uL Normal 1.20 - 4 .80 [facility] Comment on above: Performed By: #### C BCDF #### [address] [id number] Lymphocytes/100 WBC (Bld) 16.3 % Normal 13.0 - 44. 0 [facility] Comment on above: Performed By: #### C BCDF #### [address] [id number] MCHC (RBC) [Mass/Vol] 33.3 g/dL Normal 32.0 - 36.0 [facility] Comment on above: Performed By: #### C BCDF #### [address] [id number] MCV (RBC) [Entitic vol] 92 fL Normal 80 - 100 [facility] Comment on above: Performed By: #### C BCDF #### [address] [id number] Monocytes (Bld) [#/Vol] 1.21 10*3/uL High 0.10 - 1.0 0 [facility] Comment on above: Performed By: #### C BCDF #### [address] [id number] Monocytes/100 WBC (Bld) 12.4 % Normal 2.0 - 10.0 [facility] Comment on above: Performed By: #### C BCDF #### [address] [id number] Neutrophils (Bld) [#/Vol] 6.84 10*3/uL Normal 1.20 - 7 .70 [facility] Comment on above: Performed By: #### C BCDF #### [address] [id number] Neutrophils/100 WBC (Bld) 70.4 % Normal 40.0 - 80. 0 [facility] Comment on above: Performed By: #### C BCDF #### [address] [id number] Platelets (Bld) [#/Vol] 322 10*3/uL Normal 150 - 450 [facility] Comment on above: Performed By: #### C BCDF #### [address] [id number] RBC 5.15 x10E12/L Normal 4.50 - 5.90 [facility] Comment on above: Performed By: #### C BCDF #### [address] [id number] WBC (Bld) [#/Vol] 9.7 10*3/uL Normal 4.4 - 11.3 [facility] Comment on above: Performed By: #### C BCDF #### [address] [id number] COMPREHENSIVE PANELon 2022 Albumin [Mass/Vol] 4.3 g/dL Normal 3.4 - 5.0 [facility] Comment on above: Performed By: #### L ACT #### [address] [id number] ALP [Catalytic activity/Vol] 86 U/L Normal 33 - 12 0 [facility] Comment on above: Performed By: #### L ACT #### [address] [id number] ALT [Catalytic activity/Vol] 28 U/L Normal 10 - 52 [facility] Comment on above: Result Comment: Yumi ents treated with Sulfasalazine may generate falsely decreased results for ALT. Performed By: #### L ACT #### [address] [id number] Anion gap [Moles/Vol] 15 mmol/L Normal 10 - 20 [facility] Comment on above: Performed By: #### L ACT #### [address] [id number] AST [Catalytic activity/Vol] 24 U/L Normal 9 - 39 [facility] Comment on above: Performed By: #### L ACT #### [address] [id number] Bilirubin [Mass/Vol] 0.3 mg/dL Normal 0.0 - 1.2 [facility] Comment on above: Performed By: #### L ACT #### [address] [id number] Calcium [Mass/Vol] 9.1 mg/dL Normal 8.6 - 10.3 [facility] Comment on above: Performed By: #### L ACT #### [address] [id number] Chloride [Moles/Vol] 102 mmol/L Normal 98 - 107 [facility] Comment on above: Performed By: #### L ACT #### [address] [id number] Creatinine [Mass/Vol] 1.16 mg/dL Normal 0.50 - 1.30 [facility] Comment on above: Performed By: #### L ACT #### [address] [id number] GFR/1.73 sq M.predicted judy g non-blacks MDRD (S/P/Bld) [Vol rate/Area] 76 mL/min/{1.73_m2} Normal >90 [facility] Comment on above: Result Comment: CALCULATIONS OF ESTIMATE D GFR ARE PERFORMED USING THE 2020 CKD-EPI STUDY REFIT EQUATION WITHOUT THE RACE VARIABLE FOR THE IDMS-TRACEABLE CREATININE METHODS. https://jasn.asnjournals.org/content//ASN.9836187492 Performed By: #### L ACT #### [address] [id number] Glucose [Mass/Vol] 79 mg/dL Normal 74 - 99 [facility] Comment on above: Performed By: #### L ACT #### [address] [id number] HCO3 (Bld) [Moles/Vol] 22 mmol/L Normal 21 - 32 [facility] Comment on above: Performed By: #### L ACT #### [address] [id number] Potassium [Moles/Vol] 3.9 mmol/L Normal 3.5 - 5.3 [facility] Comment on above: Performed By: #### L ACT #### [address] [id number] Protein [Mass/Vol] 7.4 g/dL Normal 6.4 - 8.2 [facility] Comment on above: Performed By: #### L ACT #### [address] [id number] Sodium [Moles/Vol] 135 mmol/L Low 136 - 145 [facility] Comment on above: Performed By: #### L ACT #### [address] [id number] Urea nitrogen [Mass/Vol] 17 mg/dL Normal 6 - 23 [facility] Comment on above: Performed By: #### L ACT #### [address] [id number] CORONAVIRUS 2019 BY PCRon SARS-CoV-2 (COVID-19) RNA NESSA+probe Ql (Unsp spec) Not detected Normal Not Detected [facility] Comment on above: Result Comment: . This test has received [facility] Emergency Use Authorization (EUA) and has been verified by [facility]. This test is only authorized for the duration of time that circumstances exist to justify the authorization of the emergency use of in vitro diagnostic tests for the detection of SARS-CoV-2 virus and/or diagnosis of COVID-19 infection under section 564(b)(1) of the Act, 21 U.S.C. 360bbb-3(b)(1), unless the authorization is terminated or revoked sooner. [facility] is certified under CLIA-88 as qualified to perform high complexity testing. Testing is performed in the [facility] laboratory located at [address] [place] [address]. SARS-CoV-2/Flu/RSV Multiplex Test: Fact sheet for providers: https://www.fda.gov/media/427970/download Fact sheet for patients: https://www.fda.gov/media/870551/download Performed By: #### L ACT #### [address] [id number] Lab Specimen Source Nasal, Nasopharyngeal Normal [facility] Comment on above: Performed By: #### L ACT #### [facility] [address] [place], [place] [id number] CREATINE KINASEon 04-05-2023 CK [Catalytic activity/Vol] 115 U/L Normal 0 - 325 [facility] Comment on above: Performed By: #### C K #### [facility] [address] [place], [place] [id number] Covid 19 Resultson 3 SARS-CoV-2 (COVID-19) RNA NESSA+probe Ql (Unsp spec) NEGATIVE COVID-19 Test Coronaviruses are common world-wide and are the cause of many common colds. SARS-COV2 is a new coronavirus that began circulating worldwide in 2019 so we are calling it COVID-19. It has been estimated that four out of five patients with COVID-19 will recover at home without the need for medical attention. Symptoms of COVID-19 may include cough, fever, shortness of breath, loss of taste or smell and other flu-like symptoms including chills, sore muscles, sore throat, and headache. Severe illness is more common in older people and people with other health problems such as high blood pressure, obesity, and immune system problems. If the test is positive, you have COVID-19. You will be contacted by the ordering physicians office and instructed to remain on home isolation, in accordance with CDC guidelines. You may also be contacted by the [facility] to see if any of your close contacts may have been exposed to the virus and need to quarantine. If the test is negative, you likely do not have COVID-19 at this time, but you still may have a different illness that can spread to other people (like Influenza, or the Flu) and could still be at risk for getting COVID-19. We recommend that you stay away from other people to limit the spread of illness until your symptoms are improving and you are fever-free for 24 hours without the use of fever lowering medications such as acetaminophen or ibuprofen. No test is 100% accurate so if you are still concerned you may have COVID-19, talk to your doctor about the need to continue to stay away from others. Medicines Unless your provider told you not to use the following: Acetaminophen (Tylenol and others) is generally safe. Anti-inflammatory medications, such as Ibuprofen (Advil or Motrin) or Naproxen (Aleve) can also be used. Xfbx-bvq-prhggde cough and cold medicines can be used according to the instructions on the package. Some irqr-non-oioufkk medicines also contain acetaminophen. Make sure you are not taking more than your recommended dose. For those not hospitalized, there is no specific treatment available for this illness. Antibiotics do not treat Coronaviruses. Follow-Up Follow up with your doctor by scheduling a virtual visit or consider follow-up at one of our urgent care fever clinics. If you are having difficulty breathing, or are very weak and having difficulty standing, this is a medical emergency. Call 911 or have someone take you to the nearest emergency room immediately. If possible, wear a facemask. Additional guidance from the CDC for patients who tested POSITIVE for COVID-19 How to isolate: Isolate yourself in a specific room at home and limit your contact with others. Use a separate bathroom from other members of the household, when possible. Leave home only to get essential medical care. Do not go to work, school or public areas. Avoid using public transportation, ride-sharing, or taxis. Restrict contact with pets and other animals. If you must care for your pet or be around animals while you are sick, wash your hands before and after your interaction and wear a facemask. Make sure that shared spaces in the home have good airflow, such as by an air conditioner or an opened window, weather permitting. Personal Hygiene Procedures: Wear a face mask when in the same room as other people or pets. If a face mask interferes with your breathing, others should wear a mask when sharing space with you. Frequent hand-washing: wash your hands with soap and water for at least 20 seconds. If soap and water are not available, use alcohol-based hand global recruiter. Avoid touching your eyes, nose, and mouth with unwashed hands. Household Hygiene Procedures: Avoid sharing personal household items such as dishes, glassware, cups, eating utensils, towels or bedding with other people or pets in your home. After use, these items should be washed with soap and hot water. Disinfect all high-touch surfaces every day with antibacterial cleaning solutions such as Lysol wipes, bleach, cleansers, etc. High-touch surfaces include tabletops, doorknobs, bathroom fixtures, toilets, phones, keyboards, tablets and bedside tables. Immediately clean any surfaces that may have blood, poop or body fluids on them, using antibacterial cleaning solutions such as Lysol wipes, bleach, cleansers, etc. If clothing or bedding come into contact with blood, poop or body fluids, they should be washed immediately. Follow the directions on the laundry detergent and clothing labels but hot water is recommended when possible. Stopping home isolation precautions: If possible, consult your doctor before stopping home isolation precautions. According to the CDC, you can discontinue home isolation precautions when you have met both of these criteria: Your fever and respiratory symptoms have been gone for 24 bettina (more content not included)... Normal [facility] DRUG SCREEN,URINEon 04-05-20 23 AMPHETAMINE SCREEN,U Negative Normal NEGATIVE [facility] Comment on above: Result Comment: CUTO FF LEVEL: 500 NG/ML Cross-reactivity has been reported with high concentrations of the following drugs: buproprion, chloroquine, chlorpromazine, ephedrine, mephentermine, fenfluramine, phentermine, phenylpropanolamine, pseudoephedrine, and propranolol. Performed By: #### D RUG3 ####[id number] [place], [place] [id number] BARBITURATES SCREEN,U Negative Normal NEGATIVE [facility] Comment on above: Result Comment: CUTO FF LEVEL: 200 NG/ML Performed By: #### D RUG3 ####[facility] [place], [place] [id number] BENZODIAZEPINES SCREEN,U Negative Normal NEGATIVE [facility] Comment on above: Result Comment: CUTO FF LEVEL: 200 NG/ML Performed By: #### D RUG3 ####[facility] [place], [place] [id number] CANNABINOIDS SCREEN,U Negative Normal NEGATIVE [facility] Comment on above: Result Comment: CUTO FF LEVEL: 50 NG/ML Performed By: #### D RUG3 ####[address] [id number] COCAINE METABOLITE SCREEN,U Negative Normal NEGATIVE [facility] Comment on above: Result Comment: CUTO FF LEVEL: 150 NG/ML Performed By: #### D RUG3 ####[address] [id number] DRUG SCREEN COMMENT SEE BELOW Normal [facility] Comment on above: Result Comment: Drug screen results are presumptive and should not be used to assess compliance with prescribed medication. Contact the performing [facility] laboratory to add-on definitive confirmatory testing if clinically indicated. . Toxicology screening results are reported qualitatively. The concentration must be greater than or equal to the cutoff to be reported as positive. The concentration at which the screening test can detect an individual drug or metabolite varies. The absence of expected drug(s) and/or drug metabolite(s) may indicate non-compliance, inappropriate timing of specimen collection relative to drug administration, poor drug absorption, diluted/adulterated urine, or limitations of testing. For medical purposes only; not valid for forensic use. . Interpretive questions should be directed to the laboratory medical directors. Performed By: #### D RUG3 ####[address] [id number] FENTANYL SCREEN,URINE Negative Normal NEGATIVE [facility] Comment on above: Result Comment: CUTO FF LEVEL: 5 NG/ML Performed By: #### D RUG3 ####[address] [id number] OPIATES SCREEN,U Negative Normal NEGATIVE [facility] Comment on above: Result Comment: CUTO FF LEVEL: 300 NG/ML The opiate screen does not detect fentanyl, meperidine, or tramadol. Oxycodone is not consistently detected (refer to Oxycodone Screen, Urine result). Performed By: #### D RUG3 ####[address] [id number] OXYCODONE SCREEN,U Negative Normal NEGATIVE [facility] Comment on above: Result Comment: CUTO FF LEVEL: 100 NG/ML This test will accurately detect both oxycodone and oxymorphone. Performed By: #### D RUG3 ####[facility] [place], [place] [id number] PCP SCREEN,U Negative Normal NEGATIVE [facility] Comment on above: Result Comment: CUTO FF LEVEL: 25 NG/ML Cross-reactivity has been reported with dextromethorphan. Performed By: #### D RUG3 ####[facility] [place], [place] [phone] LIPASEon 04-05-2023 Lipase [Catalytic activity/Vol] 22 U/L Normal 9 - 82 [facility] Comment on above: Result Comment: Koki puncture immediately after or during the administration of Metamizole may lead to falsely low results. Testing should be performed immediately prior to Metamizole dosing. W-uscnkx-g-benzoquinone imine (metabolite of Acetaminophen) will generate erroneously low results in samples for patients that have taken toxic doses of acetaminophen. Performed By: #### L ACT #### [facility] [address] [place], [place] [phone] Provider Note - ED Care Manriquez sitionon 04-05-2023 Provider Note - ED Care Transition ED Care Transition: Handoff-Received: Handoff Comments Pending EPAT evaluation and disposition. Chart Review: ED NOTES HANDOFF-RECEIVED TRANSITION COMMENTS: Accept this handoff pending EPAT evaluation, recommendation physician RESULTS/VITAL SIGNS RESULTS: Recent Lab Results: I have reviewed these laboratory results: Coronavirus 2019 by PCR 05-Apr-2023 18:10:00 ResultValue Fluid Source Nasal, Nasopharyngeal Coronavirus 2019,PCR NOT DETECTED Reference Range: Not Detected .This test has received FDA Emergency Use Authorization (EUA) and has been verified by [facility]. This test is only authorized for the duration of time that circumsta Complete Blood Count + Differential 05-Apr-2023 16:16:00 ResultValue White Blood Cell Count 9.7 Red Blood Cell Count 5.15 HGB 15.8 HCT 47.4 MCV 92 MCHC 33.3 PLT 322 RDW-CV 12.0 Neutrophil % 70.4 Immature Granulocytes % 0.5 Lymphocyte % 16.3 Monocyte % 12.4 Eosinophil % 0.2 Basophil % 0.2 Neutrophil Count 6.84 Lymphocyte Count 1.58 Monocyte Count 1.21 H Eosinophil Count 0.02 Basophil Count 0.02 Comprehensive Metabolic Panel 05-Apr-2023 16:16:00 ResultValue Glucose, Serum 79 NA 135 L K 3.9 CL 102 Bicarbonate, Serum 22 Anion Gap, Serum 15 BUN 17 CREAT 1.16 GFR Male 76 Calcium, Serum 9.1 ALB 4.3 ALKP 86 T Pro 7.4 T Bili 0.3 Alanine Aminotransferase, Serum 28 Aspartate Transaminase, Serum 24 Acute Toxicology Panel, Blood 05-Apr-2023 16:16:00 ResultValue Acetaminophen Level, Serum <10.0 Acetylsalicylic Acid Level, Serum <3 Ethanol Level 61 A Creatine Kinase, Level 05-Apr-2023 16:16:00 ResultValue Creatine Kinase, Level 115 Lipase, Serum 05-Apr-2023 16:16:00 ResultValue Lipase, Serum 22 Drug Screen, Urine 05-Apr-2023 15:44:00 ResultValue Comments. SEE BELOW Drug screen results are presumptive and should not be used to assess compliance with prescribed medication. Contact the performing [facility] laboratory to add-on definitive confirmatory testing if clinically indicated. .Toxicology scre Amphetamine Screen, Urine PRESUMPTIVE NEGATIVE CUTOFF LEVEL: 500 NG/ML Cross-reactivity has been reported with high concentrations of the following drugs: buproprion, chloroquine, chlorpromazine, ephedrine, mephentermine, fenfluramine, phentermine, phenylpropanolamine Barbiturate Screen, Urine PRESUMPTIVE NEGATIVE PRESUMPTIVE NEGATIVE CUTOFF LEVEL: 200 NG/ML Benzodiazepine Screen, Urine PRESUMPTIVE NEGATIVE PRESUMPTIVE NEGATIVE CUTOFF LEVEL: 200 NG/ML Cannabinoid Screen, Urine PRESUMPTIVE NEGATIVE PRESUMPTIVE NEGATIVE CUTOFF LEVEL: 50 NG/ML Cocaine Metabolite Screen, Urine PRESUMPTIVE NEGATIVE PRESUMPTIVE NEGATIVE CUTOFF LEVEL: 150 NG/ML Fentanyl Screen, Urine PRESUMPTIVE NEGATIVE PRESUMPTIVE NEGATIVE CUTOFF LEVEL: 5 NG/ML Opiate Screen, Urine PRESUMPTIVE NEGATIVE CUTOFF LEVEL: 300 NG/ML The opiate screen does not detect fentanyl, meperidine, or tramadol. Oxycodone is not consistently detected (refer to Oxycodone Screen, Urine result). Oxycodone Screen, Urine (item) PRESUMPTIVE NEGATIVE CUTOFF LEVEL: 100 NG/ML This test will accurately detect both oxycodone and oxymorphone. PCP Screen, Urine PRESUMPTIVE NEGATIVE CUTOFF LEVEL: 25 NG/ML Cross-reactivity has been reported with dextromethorphan. Urinalysis with Culture if Indicated 05-Apr-2023 15:44:00 ResultValue Color, Urine COLORLESS Reference Range: STRAW,YELLOW Appearance, Urine CLEAR Specific [place], Urine 1.001 L pH, Urine 6.0 Protein, Urine NEGATIVE Glucose, Urine NEGATIVE Blood, Urine NEGATIVE Ketones, Urine NEGATIVE Bilirubin, Urine NEGATIVE Urobilinogen, Urine <2.0 Nitrite, Urine NEGATIVE Leukocyte Esterase, Urine NEGATIVE CLINICAL IMPRESSION Diagnosis/Annotation: ED Dx Name:Suicidal ideation Code:R45.851 Disposition: hospitalized Admit to: Behavioral Health. Admitting Considerations: ATTESTATION CRITICAL CARE TIME Is this a critically ill patient: no Electronic Signatures: Liu Wolfe (PAC) (Signed 23-Apr-2023 08:58) Authored: Handoff-Received, Results/Vital Signs, Clinical Impression, Attestation, Chart Review, Scores Last Updated: 23-Apr-2023 08:58 by Liu Wolfe (PAC) [facility] Provider Note - ED v3on 03-14 Provider Note - ED v3 Provider Note: Results/Vital Signs: Pediatric Clinical Scoring (CRAIG) is no recent CRAIG charted on this account Chart Review: ED NOTES ED NOTES: Independent Historians: Patient History of Present Illness: Patient is a 52-year-old male presenting to ED with suicidal thoughts. History of bipolar, hypertension, alcoholism, drug abuse and anxiety. Patient states that he was recently discharged from the hospital for suicidal thoughts 5 days ago. States that he was discharged on Depakote but did not filler picker his prescriptions. States that since being discharged she has been constantly drinking. States that he last drank to 24 ounce beers prior to coming to the ED today. States that he recently lost his and children which are causing him to feel this way. Reports visual hallucinations in which they appear to be black objects in auditory hallucinations which are telling him to end his life. Reports previous suicide attempts which include overdosing twice. States that this is his plan today and if he was able to get his hands on drugs today he would have done it. Denies recent self-harm. Patient has no other medical history. He does report worsening epigastric pain. Denies nausea, vomiting or diarrhea. Denies history of pancreatitis. Denies chest pain or shortness of breath. Denies fever or chills. Denies urinary symptoms. PMFSH: As per HPI, otherwise nurses notes reviewed in EMR Physical Exam: Appearance: Well-developed, nontoxic-appearing, alert and oriented. Patient sitting in the bed rocking back and forth appearing emotional. Speaking in complete sentences. Vital signs reviewed, WNL HEENT: EOMI, PERRLA, mucous membranes pink and moist, normal facial symmetry. Hearing grossly normal NECK: Nml Inspection with good ROM, no meningismus or palpable adenopathy Respiratory: LCTA b/l with normal bilateral excursion. No wheezes, rhonchi, rales. Cardiovascular: RRR, no murmurs rubs or gallops. 2+ symmetrical radial pulses. Normal cap refill. No LE edema. Abdomen/GI: Soft, nontender, nondistended. No guarding, rigidity, rebound tenderness. NABS x4. No masses or organomegaly. : No CVA tenderness Neuro: Oriented x 3, Speech Clear, cranial nerves grossly intact. Normal sensation to light touch in all 4 extremities. Normal gait. Musculoskeletal: No deformity noted on exam. Patient spontaneously moves all 4 extremities. Psych: Normal Mood. Affect appropriate to context. Denies SI/HI. Skin: No cyanosis, open wounds, or rashes. GCS: 15 MDM: Shared decision making is made. Plan discussed with the patient which he agrees to. Patient is given IV fluids after my assessment. Patient presenting to the ED with suicidal ideation. Patient states that he was recently discharged from hospitalization 5 days ago for similar symptoms. States that he recently lost his and children and since then he has been contemplating suicide. States that his plan is overdose on fentanyl. Patient has overdosed twice in the past and states that if he was able to get his hands on drugs today he would have. States that since being discharged 5 days ago he has been drinking daily. Last drink was right before coming to the emergency department which was to 24 ounces of beer. Patient reports auditory visual hallucinations. Denies access to weapons or guns. Patient has been noncompliant with his medications as he was discharged with Depakote he did not filler picker his medications from the pharmacy. Patient expresses that he would like help today and is tired feeling of this way. On exam patient appears anxious and emotional. Patient is rocking back and forth while sitting in the bed. Patient has mild tachycardia with a heart rate of 114. Remainder of the exam is unremarkable. Labs ordered to further evaluate patient and cleared the patient medically. CIWA ordered for the patient with concerns for potential alcohol withdrawal. My interpretation of EKG performed at 1628 suggest normal sinus rhythm with a ventricular rate of [address] elevations. My interpretation of labs suggest CBC with no leukocytosis or anemia. CMP suggest hyponatremia with a sodium of 135. Patient given IV fluids. No ARSEN or liver injury. Ethanol level elevated at 61. CK level within normal limits. Lipase unremarkable. Drug screen unremarkable. Urinalysis suggest no signs of hematuria or UTI. COVID not detected via PCR. Discussed this finding with patient. Patient is medically cleared for EPAT evaluation. Pending EPAT evaluation and disposition, patient was handed off to Liu Wolfe PA-C in the emergency department. DDx/Differential: Suicidal ideation Diagnosis: Suicidal ideation Dictation Disclaimer: Due to voice recognition software, sound alike and misspelled words may be contained in documentation. If you have any questions please contact me. HISTORY OF PRESENTING ILLNESS EDWARD is a 52 yea (more content not included)... Normal [facility] Triage - EDon 04-05-2023 Triage - ED Chart Review: PRIMARY ASSESSMENT EDWARD CROWDER's primary assessment is Within Defined Limits. The airway is open and patent. Breathing spontaneous and unlabored with clear breath sounds bilaterally. Circulation is normal with good peripheral pulses. Skin is warm and dry and color is normal for race. ARRIVAL INFORMATION Means of Arrival: Ambulatory Mode of Arrival: private vehicle Arrival From: home Accompanied By: self Language: Spoken Language Preferred: Tajik Reading Language Preferred: Tajik Sterilization Tech Requested: no carburetor mechanic was requested MDRO: History of MDRO: no Present on Arrival: Device Present on Arrival to ED: no Pressure Ulcer Present on Arrival to ED: no CHIEF COMPLAINT EDWARD CROWDER is a Male patient with a chief complaint of suicidal thoughts (pt states he lost his , son, and just got out of the mental health pena and is still having suicidal thoughts with a plan to overdose on fentanyl, pt admits no ah/vh, seeing shadows, hearing voices telling him to end it all). Triage Date/Time: 05-Apr-2023 15:21 FRED: 2 Pain Rating (0-10): 7 = Severe Vital Signs: Temperature: 98.0F ( 36.7C) taken temporal Blood Pressure: 209/108 Mean: Heart Rate: 114 Respiratory Rate: 20 Pulse Oximetry: 97% Height: 5 feet 7.00 inches. 170.1 CM Weight: 199.5 pounds. Calculated 90.5 kg. (stated) Calculated BMI (kg/m2): 31.278 Calculated BSA (m2) 2.07 [place] Coma Scale: Best Eye Response: (E4) spontaneous Best Motor Response: (M6) obeys commands Best Verbal Response: (V5) oriented [place] Score: 15 Cough lasting greater than 3 weeks: no Mask applied: no Patient has homicidal thoughts: no Symptoms Are POSITIVE For: depression, hallucinations and suicidal thoughts. Symptoms Are Negative For: agitated, anorexia, confusion, fatigue and withdrawn. Risk Screens Suicide Risk Screen In the Past Month: Have you wished you were or wished you could go to sleep and not wake up yes In the Past Month: Have you had any actual thoughts of killing yourself yes In the Past Month: Have you been thinking about how you might do this yes In the Past Month: Have you had these thoughts and had some intention of acting on them yes In the Past Month: Have you started to work out or worked out the details of how to kill yourself Do you intend to carry out this plan yes In Your Lifetime: Have you ever done anything, started to do anything, or prepared to do anything to end your life yes Was this within the past 3 months yes Suicide Risk Interventions Low Suicide Risk Interventions: consider behavioral health resources will be given at discharge Moderate Suicide Risk Interventions: Interventions initiated: comfort care provided, items from room which may be used to harm self removed, patient placed in an easily observable room with curtain remaining open, patient placed in gown and wanded, provider notified, remaining risks identified and mitigated, therapeutic diversion offered (puzzles, games, journaling, TV blank box) hourly behavioral assessment performed; patient placed in psych safe room and personal belongings secured High Suicide Risk Interventions: patient under constant observation at all timesicon high Items removed from room: bedside table/carts, bulletin board push pins and tasks, cleaning solutions/chemicals, coat hangers, gloves, IV poles, linen bin, loose cords (monitor cords, electric, tubing), otoscope, oxygen/oxygen canister, plastic bags (including trash bags), suction regulators, sharp or glass objects, sharps container, and scissors Remaining risks identified and mitigated: bed/stretcher Rondon Fall Scale Screening Has the patient fallen before (or is the patient in the ED as a result of a fall) has not had a fall Does the patient have an impaired gait does not have impaired gait Is the patient cognitively impaired not cognitively impaired Interventions: Rondon Fall Interventions: LOW INTERVENTIONS: *patient oriented to surroundings and call system, * patient/family falls education completed and documented, *patients fall status communicated during bedside handoff, *whiteboard updated, *mode of toileting discussed with patient, *bed in low position with brakes locked, *call light in reach, * non-skid footwear PAST MEDICAL HISTORY Immunization History: Last Known Tetanus Immunization: Unknown TRAVEL HISTORY Travel History Coronavirus Screening: no exposure or symptoms Travel Exposure History: NO travel to International locations in the past 30 days PAIN Pain Scale Used: ART Pain Assessment: abdomen and aching Pain Rating (0-10): 7 = Severe Past Medical History: Past Medical History Reviewedyes NECK SURGERY: Past Surgical History, Active Anxiety: Past Medical History, Active DRUG ABUSE: Past Medical History, Active Alcohol (more content not included)... Normal U [facility] URINALYSIS WITH CULTURE IF I NDICATEDon 04-05-2023 Appearance (U) CLEAR Normal CLEAR [facility] Comment on above: Performed By: #### U ARFX ####[address] [id number] Bilirubin Ql (U) Negative Normal NEGATIVE [facility] Comment on above: Performed By: #### U ARFX ####[address] [place], [place] [phone] Color (U) COLORLESS Normal STRAW,YELLOW [facility] Comment on above: Performed By: #### U ARFX ####[address] [place], [place] [phone] Glucose Ql (U) Negative Normal NEGATIVE [facility] Comment on above: Performed By: #### U ARFX ####[address] [id number] Hemoglobin Ql (U) Negative Normal NEGATIVE [facility] Comment on above: Performed By: #### U ARFX ####[address] [id number] Ketones Ql (U) Negative Normal NEGATIVE [facility] Comment on above: Performed By: #### U ARFX ####[address] [id number] Leukocyte esterase Test stri p Ql (U) Negative Normal NEGATIVE [facility] Comment on above: Performed By: #### U ARFX ####[address] [id number] Nitrite Ql (U) Negative Normal NEGATIVE [facility] Comment on above: Performed By: #### U ARFX ####[address] [id number] pH (U) 6.0 [pH] Normal 5.0 - 8.0 [facility] Comment on above: Performed By: #### U ARFX ####[address] [id number] Protein Ql (U) Negative Normal NEGATIVE [facility] Comment on above: Performed By: #### U ARFX ####[address] [id number] Specific gravity (U) [Rel density] 1.001 Low 1 .005 - 1.035 [facility] Comment on above: Performed By: #### U ARFX ####[address] [id number] Urobilinogen (U) [Mass/Vol] mg/dL Normal 0.0 - 1. 9 [facility] Comment on above: Performed By: #### U ARFX ####[address] [id number] ACUTE TOXICOLOGY PANEL, BLOO Don 03-23-2023 Acetaminophen [Mass/Vol] ug/mL Normal 10.0 - 30.0 [facility] Comment on above: Performed By: #### D RUBL #### [facility] [address] [place], [place] [id number] Ethanol [Mass/Vol] mg/dL Normal [facility] Comment on above: Result Comment: FOR MEDICAL USE ONLY. . REF VALUES <10 Performed By: #### D RUBL #### [facility] [address] [place], [place] [phone] SALICYLATE <3 Normal 4 - 20 [facility] Comment on above: Performed By: #### D RUBL #### [facility] [address] [place], [place] [phone] BASIC METABOLIC PANELon 03-13 Anion gap [Moles/Vol] 15 mmol/L Normal 10 - 20 [facility] Comment on above: Performed By: #### B MP ####[facility] [place], [place] [phone] Calcium [Mass/Vol] 9.3 mg/dL Normal 8.6 - 10.3 [facility] Comment on above: Performed By: #### B MP ####[facility] [place], [place] [phone] Chloride [Moles/Vol] 102 mmol/L Normal 98 - 107 [facility] Comment on above: Performed By: #### B MP ####[facility] [place], [place] [phone] Creatinine [Mass/Vol] 1.26 mg/dL Normal 0.50 - 1.30 [facility] Comment on above: Performed By: #### B MP ####[facility] [place], [place] [phone] GFR/1.73 sq M.predicted judy g non-blacks MDRD (S/P/Bld) [Vol rate/Area] 69 mL/min/{1.73_m2} Normal >90 [facility] Comment on above: Result Comment: CALCULATIONS OF ESTIMATE D GFR ARE PERFORMED USING THE 2020 CKD-EPI STUDY REFIT EQUATION WITHOUT THE RACE VARIABLE FOR THE IDMS-TRACEABLE CREATININE METHODS. https://jasn.asnjournals.org/content//ASN.8037051905 Performed By: #### B MP ####[facility] [place], [place] [phone] Glucose [Mass/Vol] 81 mg/dL Normal 74 - 99 [facility] Comment on above: Performed By: #### B MP ####[facility] [place], [place] [phone] HCO3 (Bld) [Moles/Vol] 24 mmol/L Normal 21 - 32 [facility] Comment on above: Performed By: #### B MP ####[address] [place], [place] [phone] Potassium [Moles/Vol] 3.9 mmol/L Normal 3.5 - 5.3 [facility] Comment on above: Performed By: #### B MP ####[address] [place], [place] [id number] Sodium [Moles/Vol] 137 mmol/L Normal 136 - 145 [facility] Comment on above: Performed By: #### B MP ####[address] [place], [place] [id number] Urea nitrogen [Mass/Vol] 11 mg/dL Normal 6 - 23 [facility] Comment on above: Performed By: #### B MP ####[address] [place], [place] [id number] CBC AND DIFFERENTIALon 03-23 % AUTOMATED IMMATURE GRAN 0.3 % Normal 0.0 - 0.9 [facility] Comment on above: Result Comment: Beatriz ture Granulocyte Count (IG) includes promyelocytes, myelocytes and metamyelocytes but does not include bands. Percent differential counts (%) should be interpreted in the context of the absolute cell counts (cells/L). Performed By: #### C BCDF #### [facility] [address] [place], [place] [phone] Basophils (Bld) [#/Vol] 0.02 10*3/uL Normal 0.00 - 0.1 0 [facility] Comment on above: Performed By: #### C BCDF #### [address] [phone] Basophils/100 WBC (Bld) 0.2 % Normal 0.0 - 2.0 [facility] Comment on above: Performed By: #### C BCDF #### [address] [phone] Eosinophils (Bld) [#/Vol] 0.02 10*3/uL Normal 0.00 - 0 .70 [facility] Comment on above: Performed By: #### C BCDF #### [address] [id number] Eosinophils/100 WBC (Bld) 0.2 % Normal 0.0 - 6.0 [facility] Comment on above: Performed By: #### C BCDF #### [address] [id number] Erythrocyte distribution wid th (RBC) [Ratio] 12.1 % Normal 11.5 - 14.5 [facility] Comment on above: Performed By: #### C BCDF #### [address] [phone] Hematocrit (Bld) [Volume fraction] 48.7 % Normal 4 1.0 - 52.0 [facility] Comment on above: Performed By: #### C BCDF #### [address] [phone] Hemoglobin (Bld) [Mass/Vol] 16.5 g/dL Normal 13.5 - 1 7.5 [facility] Comment on above: Performed By: #### C BCDF #### [address] [id number] Lymphocytes (Bld) [#/Vol] 1.40 10*3/uL Normal 1.20 - 4 .80 [facility] Comment on above: Performed By: #### C BCDF #### [address] [id number] Lymphocytes/100 WBC (Bld) 13.8 % Normal 13.0 - 44. 0 [facility] Comment on above: Performed By: #### C BCDF #### [address] [id number] MCHC (RBC) [Mass/Vol] 33.9 g/dL Normal 32.0 - 36.0 [facility] Comment on above: Performed By: #### C BCDF #### [address] [id number] MCV (RBC) [Entitic vol] 92 fL Normal 80 - 100 [facility] Comment on above: Performed By: #### C BCDF #### [address] [id number] Monocytes (Bld) [#/Vol] 1.17 10*3/uL High 0.10 - 1.0 0 [facility] Comment on above: Performed By: #### C BCDF #### [address] [id number] Monocytes/100 WBC (Bld) 11.5 % Normal 2.0 - 10.0 [facility] Comment on above: Performed By: #### C BCDF #### [address] [id number] Neutrophils (Bld) [#/Vol] 7.53 10*3/uL Normal 1.20 - 7 .70 [facility] Comment on above: Performed By: #### C BCDF #### [address] [id number] Neutrophils/100 WBC (Bld) 74.0 % Normal 40.0 - 80. 0 [facility] Comment on above: Performed By: #### C BCDF #### [address] [phone] Platelets (Bld) [#/Vol] 310 10*3/uL Normal 150 - 450 [facility] Comment on above: Performed By: #### C BCDF #### [facility] [address] [place], [place] [id number] RBC 5.32 x10E12/L Normal 4.50 - 5.90 [facility] Comment on above: Performed By: #### C BCDF #### [facility] [address] [place], [place] [phone] WBC (Bld) [#/Vol] 10.2 10*3/uL Normal 4.4 - 11.3 [facility] Comment on above: Performed By: #### C BCDF #### [address] [phone] CORONAVIRUS 2019, SCREEN ASY MPTOMATICon 03-23-2023 SARS-CoV-2 (COVID-19) RNA NESSA+probe Ql (Unsp spec) Not detected Normal Not Detected [facility] Comment on above: Result Comment: . This test has received FDA Emergency Use Authorization (EUA) and has been verified by [facility]. This test is only authorized for the duration of time that circumstances exist to justify the authorization of the emergency use of in vitro diagnostic tests for the detection of SARS-CoV-2 virus and/or diagnosis of COVID-19 infection under section 564(b)(1) of the Act, 21 U.S.C. 360bbb-3(b)(1), unless the authorization is terminated or revoked sooner. [facility] is certified under CLIA-88 as qualified to perform high complexity testing. Testing is performed in the [facility] laboratory located at [address] [place] [address]. SARS-CoV-2/Flu/RSV Multiplex Test: Fact sheet for providers: https://www.fda.gov/media/596237/download Fact sheet for patients: https://www.fda.gov/media/448979/download Performed By: #### C OVSC ####[facility] [place], [place] [id number] Lab Specimen Source Nasal, Nasopharyngeal Normal [facility] Comment on above: Performed By: #### C OVSC ####[facility] [place], [place] [id number] Covid 19 Resultson 3 SARS-CoV-2 (COVID-19) RNA NESSA+probe Ql (Unsp spec) NEGATIVE COVID-19 Test Coronaviruses are common world-wide and are the cause of many common colds. SARS-COV2 is a new coronavirus that began circulating worldwide in 2019 so we are calling it COVID-19. It has been estimated that four out of five patients with COVID-19 will recover at home without the need for medical attention. Symptoms of COVID-19 may include cough, fever, shortness of breath, loss of taste or smell and other flu-like symptoms including chills, sore muscles, sore throat, and headache. Severe illness is more common in older people and people with other health problems such as high blood pressure, obesity, and immune system problems. If the test is positive, you have COVID-19. You will be contacted by the ordering physicians office and instructed to remain on home isolation, in accordance with CDC guidelines. You may also be contacted by the [facility] to see if any of your close contacts may have been exposed to the virus and need to quarantine. If the test is negative, you likely do not have COVID-19 at this time, but you still may have a different illness that can spread to other people (like Influenza, or the Flu) and could still be at risk for getting COVID-19. We recommend that you stay away from other people to limit the spread of illness until your symptoms are improving and you are fever-free for 24 hours without the use of fever lowering medications such as acetaminophen or ibuprofen. No test is 100% accurate so if you are still concerned you may have COVID-19, talk to your doctor about the need to continue to stay away from others. Medicines Unless your provider told you not to use the following: Acetaminophen (Tylenol and others) is generally safe. Anti-inflammatory medications, such as Ibuprofen (Advil or Motrin) or Naproxen (Aleve) can also be used. Zlkl-txo-rakifjs cough and cold medicines can be used according to the instructions on the package. Some wnvg-ajx-ooqxrpj medicines also contain acetaminophen. Make sure you are not taking more than your recommended dose. For those not hospitalized, there is no specific treatment available for this illness. Antibiotics do not treat Coronaviruses. Follow-Up Follow up with your doctor by scheduling a virtual visit or consider follow-up at one of our urgent care fever clinics. If you are having difficulty breathing, or are very weak and having difficulty standing, this is a medical emergency. Call 911 or have someone take you to the nearest emergency room immediately. If possible, wear a facemask. Additional guidance from the CDC for patients who tested POSITIVE for COVID-19 How to isolate: Isolate yourself in a specific room at home and limit your contact with others. Use a separate bathroom from other members of the household, when possible. Leave home only to get essential medical care. Do not go to work, school or public areas. Avoid using public transportation, ride-sharing, or taxis. Restrict contact with pets and other animals. If you must care for your pet or be around animals while you are sick, wash your hands before and after your interaction and wear a facemask. Make sure that shared spaces in the home have good airflow, such as by an air conditioner or an opened window, weather permitting. Personal Hygiene Procedures: Wear a face mask when in the same room as other people or pets. If a face mask interferes with your breathing, others should wear a mask when sharing space with you. Frequent hand-washing: wash your hands with soap and water for at least 20 seconds. If soap and water are not available, use alcohol-based hand global recruiter. Avoid touching your eyes, nose, and mouth with unwashed hands. Household Hygiene Procedures: Avoid sharing personal household items such as dishes, glassware, cups, eating utensils, towels or bedding with other people or pets in your home. After use, these items should be washed with soap and hot water. Disinfect all high-touch surfaces every day with antibacterial cleaning solutions such as Lysol wipes, bleach, cleansers, etc. High-touch surfaces include tabletops, doorknobs, bathroom fixtures, toilets, phones, keyboards, tablets and bedside tables. Immediately clean any surfaces that may have blood, poop or body fluids on them, using antibacterial cleaning solutions such as Lysol wipes, bleach, cleansers, etc. If clothing or bedding come into contact with blood, poop or body fluids, they should be washed immediately. Follow the directions on the laundry detergent and clothing labels but hot water is recommended when possible. Stopping home isolation precautions: If possible, consult your doctor before stopping home isolation precautions. According to the CDC, you can discontinue home isolation precautions when you have met both of these criteria: Your fever and respiratory symptoms have been gone for 24 bettina (more content not included)... Normal [facility] D-DIMER, VTE EXCLUSIONon D-DIMER, VTE EXCLUSION 238 ng/mL FEU Normal < or = 500 [facility] Comment on above: Result Comment: The VTE Exclusion D-Dimer assay is reported in ng/mL Fibrinogen Equivalent Units (FEU). Per manufacturers instructions for use, a value of less than 500 ng/mL (FEU) may help to exclude DVT or PE in outpatients when the assay is used with a clinical pretest probability assessment. (AEMR must utilize and document eCalc Wells Score Deep Vein Thrombosis Risk for DVT exclusion only; Emergency Department should utilize Guidelines for Emergency Department Use of the VTE Exclusion D-Dimer and Clinical Pretest probability assessment model for DVT or PE exclusion.) Performed By: #### L ACT #### [address] [id number] DRUG SCREEN,URINEon 03-23-20 23 AMPHETAMINE SCREEN,U Negative Normal NEGATIVE [facility] Comment on above: Result Comment: CUTO FF LEVEL: 500 NG/ML Cross-reactivity has been reported with high concentrations of the following drugs: buproprion, chloroquine, chlorpromazine, ephedrine, mephentermine, fenfluramine, phentermine, phenylpropanolamine, pseudoephedrine, and propranolol. Performed By: #### L ACT #### [address] [id number] BARBITURATES SCREEN,U Negative Normal NEGATIVE [facility] Comment on above: Result Comment: CUTO FF LEVEL: 200 NG/ML Performed By: #### L ACT #### [address] [id number] BENZODIAZEPINES SCREEN,U Negative Normal NEGATIVE [facility] Comment on above: Result Comment: CUTO FF LEVEL: 200 NG/ML Performed By: #### L ACT #### [address] [id number] CANNABINOIDS SCREEN,U Negative Normal NEGATIVE [facility] Comment on above: Result Comment: CUTO FF LEVEL: 50 NG/ML Performed By: #### L ACT #### [address] [id number] COCAINE METABOLITE SCREEN,U Negative Normal NEGATIVE [facility] Comment on above: Result Comment: CUTO FF LEVEL: 150 NG/ML Performed By: #### L ACT #### [address] [id number] DRUG SCREEN COMMENT SEE BELOW Normal [facility] Comment on above: Result Comment: Drug screen results are presumptive and should not be used to assess compliance with prescribed medication. Contact the performing [facility] laboratory to add-on definitive confirmatory testing if clinically indicated. . Toxicology screening results are reported qualitatively. The concentration must be greater than or equal to the cutoff to be reported as positive. The concentration at which the screening test can detect an individual drug or metabolite varies. The absence of expected drug(s) and/or drug metabolite(s) may indicate non-compliance, inappropriate timing of specimen collection relative to drug administration, poor drug absorption, diluted/adulterated urine, or limitations of testing. For medical purposes only; not valid for forensic use. . Interpretive questions should be directed to the laboratory medical directors. Performed By: #### L ACT #### [address] [id number] FENTANYL SCREEN,URINE Negative Normal NEGATIVE [facility] Comment on above: Result Comment: CUTO FF LEVEL: 5 NG/ML Performed By: #### L ACT #### [address] [id number] OPIATES SCREEN,U Negative Normal NEGATIVE [facility] Comment on above: Result Comment: CUTO FF LEVEL: 300 NG/ML The opiate screen does not detect fentanyl, meperidine, or tramadol. Oxycodone is not consistently detected (refer to Oxycodone Screen, Urine result). Performed By: #### L ACT #### [address] [id number] OXYCODONE SCREEN,U Negative Normal NEGATIVE [facility] Comment on above: Result Comment: CUTO FF LEVEL: 100 NG/ML This test will accurately detect both oxycodone and oxymorphone. Performed By: #### L ACT #### [address] [id number] PCP SCREEN,U Negative Normal NEGATIVE [facility] Comment on above: Result Comment: CUTO FF LEVEL: 25 NG/ML Cross-reactivity has been reported with dextromethorphan. Performed By: #### L ACT #### [address] [id number] EMR ADDONon 03-23-2023 ADDON CONFIRMATION REQUEST REC'D Normal [facility] Comment on above: Performed By: #### C BCDF #### [address] [id number] HEPATIC FUNCTION PANELon Albumin [Mass/Vol] 4.4 g/dL Normal 3.4 - 5.0 [facility] Comment on above: Performed By: #### H EPFP #### [address] [id number] ALP [Catalytic activity/Vol] 85 U/L Normal 33 - 12 0 [facility] Comment on above: Performed By: #### H EPFP #### [address] [id number] ALT [Catalytic activity/Vol] 34 U/L Normal 10 - 52 [facility] Comment on above: Result Comment: Uymi ents treated with Sulfasalazine may generate falsely decreased results for ALT. Performed By: #### H EPFP #### [address] [id number] AST [Catalytic activity/Vol] 21 U/L Normal 9 - 39 [facility] Comment on above: Performed By: #### H EPFP #### [address] [id number] Bilirubin [Mass/Vol] 0.5 mg/dL Normal 0.0 - 1.2 [facility] Comment on above: Performed By: #### H EPFP #### [address] [id number] Bilirubin.indirect [Mass/Vol] 0.1 mg/dL Normal 0.0 - 0.3 [facility] Comment on above: Performed By: #### H EPFP #### [address] [id number] Protein [Mass/Vol] 7.1 g/dL Normal 6.4 - 8.2 [facility] Comment on above: Performed By: #### H EPFP #### [address] [id number] LACTATEon 03-23-2023 Lactate [Moles/Vol] 0.9 mmol/L Normal 0.4 - 2.0 [facility] Comment on above: Result Comment: Koki puncture immediately after or during the administration of Metamizole may lead to falsely low results. Testing should be performed immediately prior to Metamizole dosing. Performed By: #### L ACT #### [address] [id number] LIPASEon 03-23-2023 Lipase [Catalytic activity/Vol] 24 U/L Normal 9 - 82 [facility] Comment on above: Result Comment: Koki puncture immediately after or during the administration of Metamizole may lead to falsely low results. Testing should be performed immediately prior to Metamizole dosing. P-kvxejc-g-benzoquinone imine (metabolite of Acetaminophen) will generate erroneously low results in samples for patients that have taken toxic doses of acetaminophen. Performed By: #### C BCDF #### [address] [id number] PT/INRon 03-23-2023 PT Coag (PPP) [Time] 11.5 s Normal 9.8 - 12.8 [facility] Comment on above: Result Comment: Note new reference range as of 12/30/2022 at 10:00am. Performed By: #### P TINR ####[facility] [place], [place] [id number] PT, INR 1.0 Normal 0.9 - 1.1 [facility] Comment on above: Performed By: #### P TINR ####[facility] [place], [place] [id number] Provider Note - ED v3on 03-13 Provider Note - ED v3 Provider Note: Results/Vital Signs: Pediatric Clinical Scoring (CRAIG) is no recent CRAIG charted on this account Chart Review: ED NOTES ED NOTES: 52-year-old male presents emergency department, patient states he has been having upper abdominal pain, radiating around into his back. Patient states he was seen 2 days ago, had blood work was given medication, started on Prilosec which he took this morning but states pain is worse this morning and the Prilosec did not seem to help. Notes he is also been vomiting as well. Limitations to history: Independent Historians: External Records Reviewed: PMFSH: As per HPI, otherwise nurses notes reviewed in EMR Physical Exam: Constitutional: Vitals noted, no distress. Afebrile. Cardiovascular: Regular, rate, rhythm, no murmur. Pulmonary: Lungs clear bilaterally with good aeration. No adventitious breath sounds. Gastrointestinal: Soft, nonsurgical. LUQ pain. No peritoneal signs. Normoactive bowel sounds. Musculoskeletal: No peripheral edema. Negative Homans bilaterally, no cords. Skin: No rash. Neuro: No focal neurologic deficits, NIH score of 0. HISTORY OF PRESENTING ILLNESS EDWARD is a 52 year old Male and was seen by me at 23-Mar-2023 09:22 for a chief complaint of chest pain . Triage Information: Most recent Vital Sign Value Date Temp (F): 98 03-23-2023 09:12 Temp (C): 36.7 03-23-2023 09:12 Heart Rate (beats/min): 101 03-23-2023 09:12 Respirations (breaths/min): 18 03-23-2023 09:12 SpO2 (%): 97 03-23-2023 09:12 BP Systolic (mm Hg): 112 03-23-2023 09:12 BP Diastolic (mm Hg): 59 03-23-2023 09:12 PAST MEDICAL HISTORY ALLERGIES/INTOLERANCES: No Known Allergies HEALTH HISTORY: No documented data. OUTPATIENT MEDICATIONS: Home Medications Review Status for Reconciliation: N/A Med Status: Patient Currently Takes Medications Drug Name: divalproex sodium 500 mg oral delayed release tablet Instructions: 1 tab(s) orally 3 times a day Drug Name: gabapentin 300 mg oral capsule Instructions: 1 cap(s) orally 4 times a day Drug Name: topiramate 25 mg oral tablet Instructions: 1 tab(s) orally 2 times a day Drug Name: rOPINIRole 0.5 mg oral tablet Instructions: 1 tab(s) orally once (at bedtime) Drug Name: QUEtiapine 100 mg oral tablet Instructions: 1 tab(s) orally once (at bedtime) Drug Name: pantoprazole 40 mg oral delayed release tablet Instructions: 1 tab(s) orally once a day Drug Name: folic acid 1 mg oral tablet Instructions: 1 tab(s) orally once a day Drug Name: thiamine 100 mg oral tablet Instructions: 1 tab(s) orally once a day Drug Name: Multiple Vitamins with Minerals oral tablet Instructions: 1 tab(s) orally once a day supplement SIGNIFICANT EVENTS: Past Medical History Description:Bipolar Affective Disorder (BAD) Description:Hypertension (HTN) Description:Alcoholism Description:DRUG ABUSE Description:Anxiety Past Surgical History Description:NECK SURGERY CRITICAL CARE RESULTS: Recent Lab Results: I have reviewed these laboratory results: Drug Screen, Urine 23-Mar-2023 10:45:00 ResultValue Comments. SEE BELOW Drug screen results are presumptive and should not be used to assess compliance with prescribed medication. Contact the performing [facility] laboratory to add-on definitive confirmatory testing if clinically indicated. .Toxicology scre Amphetamine Screen, Urine PRESUMPTIVE NEGATIVE CUTOFF LEVEL: 500 NG/ML Cross-reactivity has been reported with high concentrations of the following drugs: buproprion, chloroquine, chlorpromazine, ephedrine, mephentermine, fenfluramine, phentermine, phenylpropanolamine Barbiturate Screen, Urine PRESUMPTIVE NEGATIVE PRESUMPTIVE NEGATIVE CUTOFF LEVEL: 200 NG/ML Benzodiazepine Screen, Urine PRESUMPTIVE NEGATIVE PRESUMPTIVE NEGATIVE CUTOFF LEVEL: 200 NG/ML Cannabinoid Screen, Urine PRESUMPTIVE NEGATIVE PRESUMPTIVE NEGATIVE CUTOFF LEVEL: 50 NG/ML Cocaine Metabolite Screen, Urine PRESUMPTIVE NEGATIVE PRESUMPTIVE NEGATIVE CUTOFF LEVEL: 150 NG/ML Fentanyl Screen, Urine PRESUMPTIVE NEGATIVE PRESUMPTIVE NEGATIVE CUTOFF LEVEL: 5 NG/ML Opiate Screen, Urine PRESUMPTIVE NEGATIVE CUTOFF LEVEL: 300 NG/ML The opiate screen does not detect fentanyl, meperidine, or tramadol. Oxycodone is not consistently detected (refer to Oxycodone Screen, Urine result). Oxycodone Screen, Urine (item) PRESUMPTIVE NEGATIVE CUTOFF LEVEL: 100 NG/ML This test will accurately detect both oxycodone and oxymorphone. PCP Screen, Urine PRESUMPTIVE NEGATIVE CUTOFF LEVEL: 25 NG/ML Cross-reactivity has been reported with dextromethorphan. Urinalysis 23-Mar-2023 10:45:00 ResultValue Color, Urine STRAW Reference Range: STRAW,YELLOW Appearance, Urine CLEAR Specific [place], Urine 1.003 L pH, Urine 6.0 Protein, Urine 100 (2+) A Glucose, Urine NEGATIVE Blood, Urine NEGATIVE Ketones, Urine 5 (TRACE) A B (more content not included)... Normal [facility] Risk Screen - Adult Emergenc n 03-23-2023 Risk Screen - Adult Emergency Preferred Language: Preferred Language: Preferred Language for Discussing Health Care (patient/designee)Tajik Patient Preferred Pharmacy: Patient Preferred Pharmacy Statement: I have reviewed and updated the patient's preferred pharmacy selection for today's visit. Advanced Directives: Advance Directive/DNRno Family Violence Adult: Abuse Screen: Are you or have you been threatened or abused physically, emotionally, or sexually by anyoneno Learning Assessment (Patient): Learning Assessment (Patient): Patient is Able to be Assessed for Learningyes Factors Influencing Readiness to Learnacuteness of illness Factors that Impact Ability to Learnnone Devices/Methods Used to Communicatenone Learning Preferencesaudio Cultural Considerationsnone Developmental Considerationsnone Sabianist Considerationsnone Learning Assessment (Other Learner): Learning Assessment (Other Learner): Other learner availableno Pressure Injury/TB/Substance: Pressure Injury: Do you have a coughno Smoking Statusnever smoker Alcohol Usedenies Admission Risk Screen: Significant IndicatorsComplete CAGE: CAGE: Is this an injured patient at a Trauma Center ([facility]/[place]): no Electronic Signatures: Torin Berg) (Signed 23-Mar-2023 09:46) Authored: Preferred Language, Patient Preferred Pharmacy, Advanced Directives, Family Violence Adult, Learning Assessment (Patient), Learning Assessment (Other Learner), Pressure Injury/TB/Substance, Pressure Injury, CAGE Last Updated: 23-Mar-2023 09:46 by Torin Berg (RN) Normal [facility] TROPONIN I, HIGH SENSITIVITY on 03-23-2023 TROPONIN I, HIGH SENSITIVITY 3 ng/L Normal 0 - 20 [facility] Comment on above: Result Comment: . Less than 99th percentile of normal range cutoff- Female and children under 18 years old <14 ng/L; Male <21 ng/L: Negative Repeat testing should be performed if clinically indicated. . Female and children under 18 years old 14-50 ng/L; Male 21-50 ng/L: Consistent with possible cardiac damage and possible increased clinical risk. Serial measurements may help to assess extent of myocardial damage. . >50 ng/L: Consistent with cardiac damage, increased clinical risk and myocardial infarction. Serial measurements may help assess extent of myocardial damage. . NOTE: Children less than 1 year old may have higher baseline troponin levels and results should be interpreted in conjunction with the overall clinical context. . NOTE: Troponin I testing is performed using a different testing methodology at [facility] than at other [facility]. Direct result comparisons should only be made within the same method. Performed By: #### C [facility] #### [address] [id number] Triage - EDon 03-23-2023 Triage - ED Chart Review: PRIMARY ASSESSMENT EDWARD CROWDER'kuldeep primary assessment is Within Defined Limits. The airway is open and patent. Breathing spontaneous and unlabored with clear breath sounds bilaterally. Circulation is normal with good peripheral pulses. Skin is warm and dry and color is normal for race. ARRIVAL INFORMATION Means of Arrival: Ambulatory Mode of Arrival: private vehicle Arrival From: home Accompanied By: self Language: Spoken Language Preferred: Tajik Reading Language Preferred: Tajik Sterilization Tech Requested: no carburetor mechanic was requested MDRO: History of MDRO: no Present on Arrival: Device Present on Arrival to ED: no Pressure Ulcer Present on Arrival to ED: no CHIEF COMPLAINT EDWARD CROWDER is a Male patient with a chief complaint of chest pain. Triage Date/Time: 23-Mar-2023 09:12 FRED: 2 Vital Signs: Temperature: 98.0F ( 36.7C) Blood Pressure: 112/59 Mean: Heart Rate: 101 Respiratory Rate: 18 Pulse Oximetry: 97% Height: 5 feet 7.00 inches. 170.1 CM Weight: 195.1 pounds. Calculated 88.5 kg. Calculated BMI (kg/m2): 30.586 Calculated BSA (m2) 2.04 [place] Coma Scale: Best Eye Response: (E4) spontaneous Best Motor Response: (M6) obeys commands Best Verbal Response: (V5) oriented [place] Score: 15 Cough lasting greater than 3 weeks: no Allergies: no Patient has homicidal thoughts: no Risk Screens Suicide Risk Screen In the Past Month: Have you wished you were or wished you could go to sleep and not wake up yes In the Past Month: Have you had any actual thoughts of killing yourself yes In the Past Month: Have you been thinking about how you might do this yes In the Past Month: Have you had these thoughts and had some intention of acting on them no In the Past Month: Have you started to work out or worked out the details of how to kill yourself Do you intend to carry out this plan no In Your Lifetime: Have you ever done anything, started to do anything, or prepared to do anything to end your life yes Was this within the past 3 months no Suicide Risk Interventions Low Suicide Risk Interventions: consider behavioral health resources will be given at discharge Moderate Suicide Risk Interventions: elopement risk identified; patient placed in psych safe room; personal belongings secured and treatment plan based on risk factors developed ancillary staff and police/security notified of elopement riskicon moderate Items removed from room: bedside table/carts, bulletin board push pins and tasks, cleaning solutions/chemicals, coat hangers, gloves, IV poles, linen bin, loose cords (monitor cords, electric, tubing), otoscope, oxygen/oxygen canister, plastic bags (including trash bags), suction regulators, sharp or glass objects, sharps container, and scissors Remaining risks identified and mitigated: bed/stretcher Treatment Plans: ED Safety Care Plan [place] Fall Scale Screening Has the patient fallen before (or is the patient in the ED as a result of a fall) has not had a fall Does the patient have an impaired gait does not have impaired gait Is the patient cognitively impaired not cognitively impaired Interventions: Rondon Fall Interventions: LOW INTERVENTIONS: *patient oriented to surroundings and call system, * patient/family falls education completed and documented, *patients fall status communicated during bedside handoff, *whiteboard updated, *mode of toileting discussed with patient, *bed in low position with brakes locked, *call light in reach, * non-skid footwear TRAVEL HISTORY Travel History Coronavirus Screening: no exposure or symptoms Travel Exposure History: NO travel to International locations in the past 30 days PAIN Pain Scale Used: ART Past Medical History: Past Medical History Reviewedyes Electronic Signatures: Greyson Elaine (EMT-P) (Signed 23-Mar-2023 09:16) Authored: Quick Triage, Risk Screens, Pain, Arrival, ABCD, Travel History, Chart Review, Scores, Past Medical History Denia Johnson (RN) (Signed 24-Mar-2023 07:28) Authored: Quick Triage, Risk Screens, Chart Review Torin Berg (RN) (Signed 23-Mar-2023 09:19) Authored: Quick Triage, Chart Review Last Updated: 24-Mar-2023 07:28 by Denia Johnson (RN) Normal [facility] nter UA MICROSCOPICon 03-23-2023 RBC 2 /HPF Normal 0-5 [facility] Comment on above: Performed By: #### C BCDF #### [address] [id number] WBC (U) [#/Vol] /uL Normal 0-5 [facility] Comment on above: Performed By: #### C BCDF #### [address] [id number] URINALYSISon 03-23-2023 Appearance (U) CLEAR Normal CLEAR [facility] Comment on above: Performed By: #### C BCDF #### [address] [id number] Bilirubin Ql (U) Negative Normal NEGATIVE [facility] Comment on above: Performed By: #### C BCDF #### [address] [id number] Color (U) STRAW Normal STRAW,YELLOW [facility] Comment on above: Performed By: #### C BCDF #### [address] [id number] Glucose Ql (U) Negative Normal NEGATIVE [facility] Comment on above: Performed By: #### C BCDF #### [address] [id number] Hemoglobin Ql (U) Negative Normal NEGATIVE [facility] Comment on above: Performed By: #### C BCDF #### [address] [id number] Ketones Ql (U) 5 (TRACE) Abnormal NEGATIVE [facility] Comment on above: Performed By: #### C BCDF #### [address] [id number] Leukocyte esterase Test stri p Ql (U) Negative Normal NEGATIVE [facility] Comment on above: Performed By: #### C BCDF #### [address] [id number] Nitrite Ql (U) Negative Normal NEGATIVE [facility] Comment on above: Performed By: #### C BCDF #### [address] [id number] pH (U) 6.0 [pH] Normal 5.0 - 8.0 [facility] Comment on above: Performed By: #### C BCDF #### [address] [id number] Protein Ql (U) 100 (2+) Abnormal NEGATIVE [facility] Comment on above: Performed By: #### C BCDF #### [address] [id number] Specific gravity (U) [Rel density] 1.003 Low 1 .005 - 1.035 [facility] Comment on above: Performed By: #### C BCDF #### [address] [id number] Urobilinogen (U) [Mass/Vol] mg/dL Normal 0.0 - 1. 9 [facility] Comment on above: Performed By: #### C BCDF #### [address] [id number] CNDSon 03-17-2023 CNDS HNO ID: [id number] Author: Derrick Juarez MD Service: Psychiatry Author Type: Physician Type: Discharge Summary Filed: 03/17/2023 6:54 PM Note Text: DISCHARGE SUMMARY BEHAVIORAL HEALTH PATIENT NAME: Edward Crowder ADMISSION DATE: 03/07/2023 DISCHARGE DATE: 03/17/2023 ATTENDING PHYSICIAN: Derrick Juarez MD Code Status: Not on file Highest Readmission Risk Score: 24 The 30 day readmissions risk score is derived from an internally validated risk model which evaluates patient level characteristics, utilization history, medication orders and lab results up until the day of discharge. Patients with a score of 40 or above are considered highest risk for readmission. Specific patient level drivers will be listed at the bottom of the summary. REASON FOR HOSPITALIZATION: Acute psychosis DISCHARGE DIAGNOSIS: PRIMARY: Schizoaffective Disorder Stimulant Use Disorder, severe GAF: -60-51 Moderate symptoms or moderate difficulty in social, occupational or school functioning. PROCEDURES DURING HOSPITALIZATION: EKG HOSPITAL COURSE: HPI on Admission: Met with patient this morning on the unit. Patient states he has been experiencing paranoid thoughts. Patient had been at [facility] for residential CD treatment of methamphetamine abuse. He states there was a lot of wrong things going on at the center. States it is not a treatment center. States a lot of gang shit, don't have to go to groups and still get a certivifacte. Nurses hand out wrong rxs to the wrong people . He observed residents using drugs. He reported this to another resident who reported to staff. Staff then came to the patient and patient confirmed what he had seen. Patient is paranoid about the other residents. He had a water bottle and stated after drinking out of that his mouth tasted like bleach. Since then he had not been drinking. He also was paranoid about food and was not eating. He was reports auditory hallucinations with voices telling him to go, run he also sees shadows of people. Last night he experienced tactile hallucinations feeling like someone was poking him in the chest. Patient reports a history of paranoid thoughts when withdrawing from methamphetamine in the past. He states Geodon has been effective. Course on unit: Patient was admitted on 03/07/2023 3:33 AM through [place] [facility] for psychosis. Upon arrival to the unit, patient was highly anxious, endorsing auditory hallucinations. He was started on geodon and depakote to target symptoms. He continued to endorse voices but did not appear internally stimulated. Geodon was increased to 80mg twice daily with good effective. While admitted, patient was increasingly involved in group activities and was an active participant in their treatment. Patient remained medication compliant while admitted and reported no adverse side effects to medications given. All questions regarding medications, diagnosis and other treatments were addressed and answered during meetings with the treatment team. On day of discharge, patient denied SI/HI/AVH and was discharged to residential treatment in stable condition. At this time, patient does not appear to be at significant risk of harming himself or others and does appear to be able to care for himself at this time. Patient has been provided with information regarding need for AA/NA meetings to maintain sobriety, the time and location of their next outpatient psychiatry appointment and contact information to the unit should questions or needs arise after discharge. Patient was provided with prescriptions and an up to date medication list. Risk Assessment: In my opinion with reasonable degree of medical certainty, he manifests a low risk of acute harm to self or others and a mild/moderate risk on a chronic basis as evidenced by his history, subjective and objective condition at the time of discharge. Protective factors include: help seeking, motivation for treatment. Static risk factors include: history of suicide attempt, substance use. Safety plan for future suicidal or homicidal ideation includes: remove weapons from home, present to ED for increased severity of symptoms, continued close outpatient follow-up. Patient agreed with safety plan and amenable to discharge. CONSULTING TEAMS DURING HOSPITALIZATION: Treatment Team: Attending Provider: Derrick Juarez MD Consulting: Sarahy Sesay MD PATIENT CONDITION AT DISCHARGE: Improved DISCHARGE DISPOSITION: residential treatment COMPLICATIONS: None At this time the patient has maximized his benefit from hospitalization.. The patient denies suicidal or homicidal ideation, intent or plan and is safe for discharge. The patient voices a readiness to transition back to his home setting and has agreed to our follow-up recommendations including medication compliance. SUBJECTIVE: Patient reports he did not take depakot (more content not included)... [facility] NURSING [facility] 03-17-2023 NURSING PROG HNO ID: [id number] Author: Preston Armenta RN Service: Nursing Author Type: Registered Nurse Type: Nursing Progress Note Filed: 03/17/2023 1:33 PM Note Text: Nursing Progress Note Patient Name: Edward Crowder Patient Location: [id number]- Daily Note: Patient denied having any suicidal or homicidal thoughts. Did not verbalized any Command Hallucinations. Went over all discharge instructions with patient. He did not have any questions. However, today he refused all morning medications except for Neurontin. All personal belongings sent home with patient. This note was completed by: Preston Armenta [facility] NURSING PROG HNO ID: [id number] Author: Valery Pickett RN Service: Nursing Author Type: Registered Nurse Type: Nursing Progress Note Filed: 03/17/2023 6:46 AM Note Text: Nursing Progress Note Patient Name: Edward Crowder Patient Location: [id number]- Daily Note: Assumed care of pt at 1930, pt was visible in the day area at beginning of shift. 2022 - Pt was seen in the day area, pt was restless, became frustrated talking about his medications. Pt stated he has been having problems with feeling extremely restless at night, that he couldn't deal with it, and that he didn't want to take his evening medications until they figured out what is making him restless. Pt stated he wouldn't take his medications, but he would take a shot. Pt denies SI HI or visual hallucinations, states he still has some auditory hallucinations at times. Pt was given PRN Haldol 5mg and Ativan 2mg IM. Pt did not take any of his scheduled evening medications. Pt then went to his room to go to bed. 0630 - Pt refused AM Protonix. Broset = 1 irritable This note was completed by: Valery Pickett Normal [facility] SOCIAL WORKon 03-17-2023 SOCIAL WORK HNO ID: [id number] Author: Valerie Morelos LISW Service: Psychiatry Author Type: Automotive Hardware Engineer Type: Social Work Filed: 03/17/2023 12:30 PM Note Text: BEHAVIORAL HEALTH SOCIAL WORK DISCHARGE NOTE SERVICE DATE: 03/17/2023 SERVICE TIME: 12:29 PM Discharge Information Row Name Admission (Current) from 03/07/2023 in [facility] [place] [facility] [place] Follow-Up Appointment Provider Name Follow up scheduled through [facility]. Additional Instructions Patient discharged with 30 days of medications. Discharge Disposition Discharge Disposition -- Sober Residential Living Program Residential Treatment Center Referral Information Residential Treatment Center Name -- [facility] - [facility] [address] [address], [place] [address] Additional Discharge Information Additional Discharge Resources 988 Suicide AND Crisis Lifeline - provides 02/02, free and confidential support for anyone experiencing a mental health or addiction crisis, and their family members. You will be able to call, chat, or text the 988 number in order to reach a trained counselor who can offer help and support. 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 Yes. A list of appropriate referrals presented to/discussed with Patient on 03/17/2023 at 11:30 AM [facility] [place]-owned/affiliated facilities and agencies have been identified Patient/Automat Car Attendant Given/Explained Medicare Discharge Notice (IM letter): Not Applicable TRANSPORTATION ARRANGEMENTS: [employer] Voucher PRESCRIPTIONS FILLED PRIOR TO DISCHARGE: Yes, at hospital pharmacy ADDITIONAL NOTES: Patient to be discharge per MD order. Patient has maximized benefit of admission and is discharge ready. Patient is denying suicidal and homicidal ideation. Patient denies visual and auditory hallucinations. Patient has been medication compliant and is ready to transition back to sober living. Automotive Hardware Engineer reviewed discharge and follow up. Patient agreeable to plan, no additional needs noted. SIGNATURE: LEONARDA Paul PATIENT NAME: Edward Crowder DATE: March 17, 2023 TIME: 12:29 PM [facility] NURSING PROGon 03-16-2023 NURSING PROG HNO ID: [id number] Author: Yumi Moncada RN Service: ? Author Type: Registered Nurse Type: Nursing Progress Note Filed: 03/16/2023 6:58 PM Note Text: Nursing Progress Note Patient Name: Edward Crowder Patient Location: [id number] Daily Note: Nurse assumed care of patient at 1530 received report from previous shift. Pt is up and visible in day area. Edward received IM haldol and ativan at 1332 for voiced AH. Pt states the voices tell him to quit and give up Edward requested the shot . Pt tolerated injection well. Edward is withdrawn to room this afternoon. Nurse will continue to monitor. 1857- Edward is pleasant and in control this evening. He states the shot helped him and he is no longer hearing voices. Pt is not voicing any complaints. Edward ate well. Nurse will continue to monitor. This note was completed by: Yumi Moncada [facility] NURSING PROG HNO ID: [id number] Author: Alaina Lee RN Service: ? Author Type: Registered Nurse Type: Nursing Progress Note Filed: 03/16/2023 12:11 PM Note Text: Other: Pt. Is pleasant and in control. No s/s of distress noted this morning. Compliant with medications and denies all. Social with peers and attends groups with no issues noted. Will continue to monitor. [facility] NURSING PROG HNO ID: [id number] Author: Cheyenne Garibay LPN Service: Nursing Author Type: LICENSED NURSE Type: Nursing Progress Note Filed: 03/16/2023 7:06 AM Note Text: Nursing Progress Note for 03/15/23 1900 - 0730 Patient was up in the day area at the beginning of the shift. He denied any homicidal or suicidal ideation. He does admit to hearing voices which are making him increasingly anxious. He requested a shot for the voices and anxiety/agitation. At 2015 he was given IM PRN Haldol and Ativan per drs order with good results. Later, when I woke him for HS medications he refused stating that he just wanted to sleep and if he couldn't go right back to sleep he would come out and request his HS medication. Will continue to monitor per unit protocol. 0224 - Patient is asleep in his bed with his eyes closed. Respirations are even and unlabored. No S/S of distress have been observed. 0705 - Patient slept 8 1/2 hrs. [facility] NURSING PROGon 03-15-2023 NURSING PROG HNO ID: [id number] Author: Prestno Armenta, RN Service: Nursing Author Type: Registered Nurse Type: Nursing Progress Note Filed: 03/15/2023 5:08 PM Note Text: Nursing Progress Note Patient Name: Edward Crowedr Patient Location: [id number] Daily Note: Patient has been up and visible on the unit. Denies having any suicidal or homicidal thoughts. Helpful to his peers on the unit. Socializing appropriately with his peers. Has attended groups with active participation noted. However around 1500 he stated Can I have something for the voices. Per patient the voices were saying Give up, don't stay sober , run away Stated that he is not going to allow them to win this time. Presently, watching TV with his peers. Broset score - 0. Minimal risk for violence. This note was completed by: Preston Armenta [facility] NURSING PROG HNO ID: [id number] Author: Ashish Lopez, RN Service: Nursing Author Type: Registered Nurse Type: Nursing Progress Note Filed: 03/15/2023 6:05 AM Note Text: Nursing Progress Note Patient Name: Edward Crowder Patient Location: [id number] Daily Note:1929: Assumed care of pt. 1944: Pt observed in day area, eating a snack. Pt denied SI/HI/VH. Pt reports CAH, telling to run again , use again , and that he is hopeless. 2035:Pt took scheduled medication without incident. Pt declined to take PRN remeron. 604: Pt slept approx 7 hours. This note was completed by: Ashish Lopez [facility] NURSING PROGon 03-14-2023 NURSING PROG HNO ID: [id number] Author: Preston Armenta, RN Service: Nursing Author Type: Registered Nurse Type: Nursing Progress Note Filed: 03/14/2023 5:45 PM Note Text: Nursing Progress Note Patient Name: Edward Crowder Patient Location: [id number]- Daily Note: 1130-Patient has been up intermittently on the unit. Denied having any suicidal or homicidal thoughts. However, informed the Treatment Team that he occasionally see things and auditory hallucinations telling him to run and start partying again. 1300-Request a private room ( has ask for one before). Per patient his room makes him feel closed in. However, reminded patient that he is only person in his room. Account Consultant told patient that we could not accommodate him at this time. Then he went into a pushpa , shaking Is legs and cringed face. Lasted about 5-7 minutes then return to his room 1753-Has been compliant with his medications. Also, able to recall the names of each. Account Consultant reinforced the indications. Broset score - 0. Minimal risk for violence. This note was completed by: Preston Armenta [facility] NURSING PROGon 03-13-2023 NURSING PROG HNO ID: [id number] Author: Ashish Lopez, RN Service: Nursing Author Type: Registered Nurse Type: Nursing Progress Note Filed: 03/14/2023 6:10 AM Note Text: Nursing Progress Note Patient Name: Edward Crowder Patient Location: [id number] Daily Note:1929: Assumed care of pt. Pt in day area watching tv and eating a snack. Pt denied SI/HI. Pt reports intermittently seeing things in his periphery, but can't describe what he sees. Pt reports intermittent auditory hallucinations that tell him to ' keep going , run and they tell him to start partying again. 2045: Pt took scheduled medication without incident and received PRN doxepin. 2257: Pt received PRN atarax. 25: PRN atarax ineffective. Pt wants to pace halls. Pt anxious and restless. Pt received PRN ativan and haldol. 608: Pt slept approx 5 hours. This note was completed by: Ashish Lopez [facility] NURSING PROG HNO ID: [id number] Author: Joyce Buchanan RN Service: ? Author Type: Registered Nurse Type: Nursing Progress Note Filed: 03/13/2023 2:31 PM Note Text: 0700 RN took over care of the pt. [id number] Pt stated he is anticipating filling out the recovery program application today. Pt is cooperative with staff and makes his needs known. BP 123/78 Pulse 87 Temp 36.5 ?C (97.7 ?F) Resp 16 Ht 170.2 cm (5' 7 ) Wt 90.7 kg (200 lb) SpO2 97% BMI 31.32 kg/m? Pt was pleasant the entire shift and appreciative of care. Pt reported anxiety, Atarax given. [facility] SOCIAL WORKon 03-13-2023 SOCIAL WORK HNO ID: [id number] Author: Valerie Morelos LISW Service: Psychiatry Author Type: Automotive Hardware Engineer Type: Social Work Filed: 03/13/2023 1:04 PM Note Text: BEHAVIORAL HEALTH SOCIAL WORK PROGRESS NOTE SERVICE DATE: 03/13/2023 SERVICE TIME: 10:12 AM Patient met with interdisciplinary team in the consult room. Patient shares feeling tired this morning due to trouble sleeping. States trouble with sleeping was related to voices, paranoia and heartburn. States he was feeling anxious and really struggled through the night as he just laid there thinking about all sorts of crazy stuff. Shares auditory hallucinations are still bothering him and causes him not to want to be around others or have his back to people. Automotive Hardware Engineer reviewed with patient process for residential and discussed why has has not attended any groups during course of admission. Patient states he doesn't like to be around people in an enclosed room and it increase his anxiety but states he will start going to groups today. Again discussed wanting to complete application for [facility] and push back on Automotive Hardware Engineer re: not wanting to complete it by paper vs doing it online and stating it's your job. Patient does apologize for becoming upset and thanks Automotive Hardware Engineer for help thus far. Automotive Hardware Engineer assist patient in completing application for [facility] online. Automotive Hardware Engineer reaches out to [facility] who shares patient has not called. They have openings in 3 of their houses and states they will need to speak with him. Automotive Hardware Engineer encouraged patient to call to start process. Followed back up with [facility] who is able to accept patient on Thursday. Address: [place] [id number] [address] SIGNATURE: LEONARDA Paul PATIENT NAME: Edward Crowder DATE: March 13, 2023 TIME: 10:12 AM Normal [facility] Valproate SerPl-mCncon 03-13 Valproate [Mass/Vol] 41.2 ug/mL Low 50.0-100.0 [facility] Comment on above: Order Comment: Speci men Type: BLOOD SPECIMEN Ordering Facility: [facility] Address: [address] [place], [place] [id number] Result Comment: Refe rence ranges and high/low indicator flags are provided as general guidelines only. The treating physician must determine appropriate target levels/dosing based on the specific clinical situation. Performed By: #### 4 [id number] #### [facility] CLIA [id number] [address] [place] [address] NURSING PROGon 03-12-2023 NURSING PROG HNO ID: [id number] Author: Preston Armenta RN Service: Nursing Author Type: Registered Nurse Type: Nursing Progress Note Filed: 03/12/2023 6:52 PM Note Text: Nursing Progress Note Patient Name: Edward Crowder Patient Location: [id number]/[id number] Daily Note: Patient has been up and visible on the unit. Still is reluctant to any group participation. Has not attended any of the 3 groups offered today. Minimal socialization with peers noted. Around 1430 he did request something for Anxiety and was prn with Atarax 50 my with good results. Has not verbalized any Auditory Hallucinations to this feature writer as he has in the past. Presently, pt is waiting to get into Residential Treatment programs. Will continue to encourage patient to verbalize feelings and to use appropriate coping skills. Broset score - 0. Minimal risk for violence. This note was completed by: Preston Armenta [facility] SOCIAL WORKon 03-12-2023 SOCIAL WORK HNO ID: [id number] Author: Valerie Morelos LISW Service: Psychiatry Author Type: Automotive Hardware Engineer Type: Social Work Filed: 03/12/2023 4:08 PM Note Text: BEHAVIORAL HEALTH SOCIAL WORK PROGRESS NOTE SERVICE DATE: 03/12/2023 SERVICE TIME: 10:00 AM Patient met with interdisciplinary team in the consult room. Patient appears brighter and states feeling better. Admits he is still hearing people talking but shares it is less intense. States they are saying run and keep running. States voices are not as constant as they were previously. Patient shares he does want mental help and understands lengthy substance use has contributed to psychosis he is experiencing. States he has only been sober a month. Patient continues to be motivated for sobriety and treatment. Shares legal trouble in the past which has lead to penitentiary and all the trauma he has not processed. Shared going through list and below are facilities he is interested in. Shared [facility] is top. [facility] Placed call to [facility]. They took patient information and request patient complete online application. Concerns that patient has not been going to group. They are sober living with 7 hours of IOP daily. Automotive Hardware Engineer printed online application for patient. Patient upset he had to complete printed copy with pencil. Automotive Hardware Engineer explained goal to gather information and he stated can't I just tell you and ou do it for me. Automotive Hardware Engineer process barriers to him completing which patient stated it's how they have done it in the past. Automotive Hardware Engineer shared she could sit down with patient at a later time to complete application but explained this could postpone process. Patient states alright, I'll wait. SIGNATURE: LEONARDA Paul PATIENT NAME: Edward Crowder DATE: March 12, 2023 TIME: 10:00 AM [facility] NURSING PROGon 03-11-2023 NURSING PROG HNO ID: [id number] Author: Esther Celestin, RN Service: ? Author Type: Registered Nurse Type: Nursing Progress Note Filed: 03/12/2023 6:22 AM Note Text: 1929 received report and assumed care. Patient pleasant and cooperative. Disheveled appearance. Compliant with vital assessment and most medications. Refused Buspar and Trazodone. Denies pain, suicidal and homicidal ideations. Denied visual hallucinations , reported auditory hallucinations unable to describe voices. Denied delusions and command hallucinations. 0600 patient slept for 10 hours safety checks maintained. [facility] NURSING PROG HNO ID: [id number] Author: Preston Armenta RN Service: Nursing Author Type: Registered Nurse Type: Nursing Progress Note Filed: 03/11/2023 5:52 PM Note Text: Nursing Progress Note Patient Name: Edward Crowder Patient Location: [id number] Daily Note: [id number]- Patient has been in his room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 Performed By: #### 5 7021-8 ####[facility] LABORATORYCLIA [id number] [address] [place] Monocytes (Bld) [#/Vol] 1.09 10*3/uL High <0.87 [facility] Comment on above: Order Comment: Speci men Type: BLOOD SPECIMENOrdering Facility: [facility] Address: [address] [address] Performed By: #### 5 7021-8 ####[facility] LABORATORYCLIA [id number] [place] [address] [place] Monocytes/100 WBC (Bld) 9.2 % Normal [facility] Comment on above: Order Comment: Speci men Type: BLOOD SPECIMENOrdering Facility: [facility] Address: [address] [address] Performed By: #### 5 7021-8 ####[facility] LABORATORYCLIA [id number] [place] [address] [place] Neutrophils (Bld) [#/Vol] 8.98 10*3/uL High 1.45-7.5 0 [facility] Comment on above: Order Comment: Speci men Type: BLOOD SPECIMENOrdering Facility: [facility] Address: [address] [address] Performed By: #### 5 7021-8 ####[facility] LABORATORYCLIA [id number] [place] [address] [place] Neutrophils/100 WBC (Bld) 75.4 % Normal [facility] Comment on above: Order Comment: Speci men Type: BLOOD SPECIMENOrdering Facility: [facility] Address: [address] [place] [address] Performed By: #### 5 7021-8 ####[facility] LABORATORYCLIA [id number] [place] [address] [place] Nucleated RBC (Bld) [#/Vol] 10*3/uL Normal <0.01 [facility] Comment on above: Order Comment: Speci men Type: BLOOD SPECIMENOrdering Facility: [facility] Address: [address] [place] [address] Performed By: #### 5 7021-8 ####[facility] LABORATORYCLIA [id number] [place] [address] [place] Nucleated RBC/100 WBC (Bld) [Ratio] 0.0 /100 WBC Normal [facility] Comment on above: Order Comment: Speci men Type: BLOOD SPECIMENOrdering Facility: [facility] Address: [address] [address] Performed By: #### 5 7021-8 ####[facility] LABORATORYCLIA [id number] [address] [place] Platelet mean volume (Bld) [Entitic vol] 9.5 fL Normal 9.0-12.7 [facility] Comment on above: Order Comment: Speci men Type: BLOOD SPECIMENOrdering Facility: [facility] Address: [address] [place] [address] Performed By: #### 5 7021-8 ####[facility]USLID LABORATORYCLIA [id number] [place] [address] [place] Platelets (Bld) [#/Vol] 381 10*3/uL Normal 150-400 [facility] Comment on above: Order Comment: Speci men Type: BLOOD SPECIMENOrdering Facility: [facility] Address: [address] [address] Performed By: #### 5 7021-8 ####[facility]D LABORATORYCLIA [id number] [place] [address] [place] RBC (Bld) [#/Vol] 5.67 10*6/uL Normal 4.20-6.00 [facility] Comment on above: Order Comment: Speci men Type: BLOOD SPECIMENOrdering Facility: [facility] Address: [address] [address] Performed By: #### 5 7021-8 ####[facility]USLID LABORATORYCLIA [id number] [place] [address] [place] WBC (Bld) [#/Vol] 11.89 10*3/uL High 3.70-11.00 [facility] Comment on above: Order Comment: Speci men Type: BLOOD SPECIMENOrdering Facility: [facility] Address: [address] [place] [address] Performed By: #### 5 7021-8 ####[facility]USL[facility] LABORATORYCLIA [id number] [place] [id number] [place] Comprehensive metabolic 2000 panelon 03-06-2023 Albumin [Mass/Vol] 4.8 g/dL Normal 3.9-4.9 [facility] Comment on above: Order Comment: Speci men Type: BLOOD SPECIMENOrdering Facility: [facility] Address: [address] [place] [address] Performed By: #### 5 643-2, , ####[facility]USLI LABORATORYCLIA [id number] [address] [id number] [place] ALP [Catalytic activity/Vol] 103 U/L Normal 38-113 [facility] Comment on above: Order Comment: Speci men Type: BLOOD SPECIMENOrdering Facility: [facility] Address: [address] [place] [address] Performed By: #### 5 643-2, , ####[facility] LABORATORYCLIA [id number] [place] [id number] [place] ALT [Catalytic activity/Vol] 30 U/L Normal 10-54 [facility] Comment on above: Order Comment: Speci men Type: BLOOD SPECIMENOrdering Facility: [facility] Address: [address] [place] [address] Performed By: #### 5 643-2, , ####[facility] LABORATORYCLIA [id number] [place] [id number] [place] Anion gap [Moles/Vol] 14 mmol/L Normal 9-18 [facility] Comment on above: Order Comment: Speci men Type: BLOOD SPECIMENOrdering Facility: [facility] Address: [address] [place] [address] Performed By: #### 5 643-2, , ####[facility]USLID LABORATORYCLIA [id number] [place] [id number] [place] AST [Catalytic activity/Vol] 24 U/L Normal 14-40 [facility] Comment on above: Order Comment: Speci men Type: BLOOD SPECIMENOrdering Facility: [facility] Address: [address] [address] Performed By: #### 5 643-2, , ####[facility] LABORATORYCLIA [id number] [place] [id number] [place] Bilirubin [Mass/Vol] 0.7 mg/dL Normal 0.2-1.3 [facility] Comment on above: Order Comment: Speci men Type: BLOOD SPECIMENOrdering Facility: [facility] Address: [address] [place] [address] Performed By: #### 5 643-2, , ####[facility] LABORATORYCLIA [id number] [place] [id number] [place] Calcium [Mass/Vol] 9.4 mg/dL Normal 8.5-10.2 [facility] Comment on above: Order Comment: Speci men Type: BLOOD SPECIMENOrdering Facility: [facility] Address: [address] [place] [address] Performed By: #### 5 643-2, , ####[facility]USLID LABORATORYCLIA [id number] [place] [id number] [place] Chloride [Moles/Vol] 102 mmol/L Normal 97-105 [facility] Comment on above: Order Comment: Speci men Type: BLOOD SPECIMENOrdering Facility: [facility] Address: [address] [address] Performed By: #### 5 643-2, , ####[facility] LABORATORYCLIA [id number] [place] [id number] [place] CO2 [Moles/Vol] 21 mmol/L Low 22-30 [facility] Comment on above: Order Comment: Speci men Type: BLOOD SPECIMENOrdering Facility: [facility] Address: [address] [id number] Performed By: #### 5 643-2, , ####[facility]USLID LABORATORYCLIA [id number] [address] [id number] [place] Creatinine [Mass/Vol] 1.16 mg/dL Normal 0.73-1.22 [facility] Comment on above: Order Comment: Speci men Type: BLOOD SPECIMENOrdering Facility: [facility] Address: [address] Performed By: #### 5 643-2, , ####[facility] LABORATORYCLIA [id number] [address] [id number] [place] [facility] Creatinine and Glomerular fi ltration rate.predicted panel (S/P/Bld) 77 mL/min/1.73m??? Normal >=60 [facility] Comment on above: Order Comment: Sharda estrada Type: BLOOD SPECIMENOrdering Facility: [facility] Address: [address] [address] Result Comment: Mami mated Glomerular Filtration Rate (eGFR) is calculated using the 2020 CKD-EPI creatinine equation. This equation utilizes serum creatinine, sex, and age as parameters. The creatinine assay has traceable calibration to isotope dilution- mass spectrometry. Refer to KDIGO guidelines for clinical interpretation. In patients with unstable renal function, e.g. those with acute kidney injury, the eGFR may not accurately reflect actual GFR. Performed By: #### 5 643-2, , ####[facility] LABORATORYCLIA [id number] [place] [id number] [place] Glucose [Mass/Vol] 93 mg/dL Normal 74-99 [facility] Comment on above: Order Comment: Asiai men Type: BLOOD SPECIMENOrdering Facility: [facility] Address: [address] [address] Result Comment: The [place] Diabetes [employer] (ADA) provides guidance for cutoff values for fasting glucose and random glucose. The ADA defines fasting as no caloric intake for at least 8 hours. Fasting plasma glucose results between 100 to 125 mg/dL indicate increased risk for diabetes (prediabetes). Fasting plasma glucose results greater than or equal to 126 mg/dL meet the criteria for diagnosis of diabetes. In the absence of unequivocal hyperglycemia, results should be confirmed by repeat testing. In a patient with classic symptoms of hyperglycemia or hyperglycemic crisis, random plasma glucose results greater than or equal to 200 mg/dL meet the criteria for diagnosis of diabetes. Reference: Standards of Medical Care in Diabetes 2016, [place] [employer]. Diabetes Care. 2016.39(Suppl 1). Performed By: #### 5 643-2, , ####[facility] LABORATORYCLIA [id number] [place] [address] [place] Potassium [Moles/Vol] 4.1 mmol/L Normal 3.7-5.1 [facility] Comment on above: Order Comment: Sharda estrada Type: BLOOD SPECIMENOrdering Facility: [facility] Address: [address] [place] [address] Performed By: #### 5 643-2, , ####[facility]USL[facility] LABORATORYCLIA [id number] [place] [address] [place] Protein [Mass/Vol] 8.0 g/dL Normal 6.3-8.0 [facility] Comment on above: Order Comment: Sharda estrada Type: BLOOD SPECIMENOrdering Facility: [facility] Address: [address] [address] Performed By: #### 5 643-2, , ####[facility] LABORATORYCLIA [id number] [place] [address] [place] Sodium [Moles/Vol] 137 mmol/L Normal 136-144 [facility] Comment on above: Order Comment: Sharda estrada Type: BLOOD SPECIMENOrdering Facility: [facility] Address: [address] [address] Performed By: #### 5 643-2, , ####[facility] LABORATORYCLIA [id number] [address] [place] [facility] Urea nitrogen [Mass/Vol] 16 mg/dL Normal 9-24 [facility] Comment on above: Order Comment: Speci men Type: BLOOD SPECIMENOrdering Facility: [facility] Address: [place] [address] Performed By: #### 5 643-2, 80173-8, 57367-6 ####[facility] LABORATORYCLIA [id number] [place] [id number] [facility] ECG COMPLETEon 03-06-2023 ECG COMPLETE Ventricular Rate : 1 15 BPM Atrial Rate : 115 BPM P-R Interval : 150 ms QRS Duration : 78 ms Q-T Interval : 336 ms QTC Calculation(Bazett) : 464 ms Calculated P [employer] : 57 degrees Calculated R [employer] : 104 degrees Calculated T [employer] : 63 degrees SINUS TACHYCARDIA RIGHTWARD AXIS CANNOT RULE OUT ANTERIOR INFARCT , AGE UNDETERMINED ABNORMAL ECG NO PREVIOUS ECGS AVAILABLE Confirmed by REYNALDO GRANT MD ([id number]), news copy editor KYUNG ELIAS ([id number]) on 03/07/2023 11:14:32 AM NAME : EDWARD CROWDER PID : [id number] : 1970 Gender : Male Race : ORD : [id number] Procedure Date : Mar 06 2023 13:56:04 Edit Date : Mar 07 2023 11:14:33 Diagnosis: SINUS TACHYCARDIA RIGHTWARD AXIS CANNOT RULE OUT ANTERIOR INFARCT , AGE UNDETERMINED ABNORMAL ECG NO PREVIOUS ECGS AVAILABLE Confirmed by REYNALDO GRANT MD ([id number]), news copy editor KYUNG ELIAS ([id number]) on 03/07/2023 11:14:32 AM Test Reason : Chest Pain Location : 80 : [facility] ED Overread By : REYNALDO GRANT MD Edited By : KYUNG ELIAS Referred By : , Acquired by : PATRICE FIORE [facility] ED NOTEon 03-06-2023 ED NOTE HNO ID: [id number] Author: Torin Covarrubias, RN Service: ? Author Type: Registered Nurse Type: ED Notes Filed: 03/06/2023 9:22 PM Note Text: Patient given boxed lunch and juice. Patient resting in bed; denies any SI/HI at this time. Normal [facility] ED NOTE HNO ID: [id number] Author: Freddie Zhou RN Service: ? Author Type: Registered Nurse Type: ED Notes Filed: 03/06/2023 7:07 PM Note Text: Report given to oncoming nurse by bedside report. [facility] ED NOTE HNO ID: [id number] Author: Freddie Zhou RN Service: ? Author Type: Registered Nurse Type: ED Notes Filed: 03/06/2023 3:34 PM Note Text: Assumed care of patient by bedside report. Pt. Resting in bed, no distress. [facility] ED NOTE HNO ID: [id number] Author: Nuha Pineda RN Service: ? Author Type: Registered Nurse Type: ED Notes Filed: 03/06/2023 1:35 PM Note Text: Pt unable to urinate at this time. [facility] ED NOTE HNO ID: [id number] Author: Nuha Pineda RN Service: ? Author Type: Registered Nurse Type: ED Notes Filed: 03/06/2023 1:32 PM Note Text: Pt shaking and unable to be redirected. Pt reports feeling anxious, unwilling to place gown on. [employer] and [facility] police at bedside. Pt medicated per LIP order. Belongings secured outside of room. [facility] ED NOTE HNO ID: [id number] Author: Nuha Pineda RN Service: ? Author Type: Registered Nurse Type: ED Notes Filed: 03/06/2023 1:13 PM Note Text: Pt states he hears voices from time to time and believes he is somehow being poisoned at [employer] [facility] facility. [facility] ED NOTE HNO ID: [id number] Author: Nuha Pineda RN Service: ? Author Type: Registered Nurse Type: ED Notes Filed: 03/06/2023 1:10 PM Note Text: Pt arrived to ED via EMS from [employer] [facility] with c/o racing thoughts. Pt states he just wants to feel better. Pt shaking throughout triage process. Denies any alcohol or drug use X 1 month. Denies SI/HI. [facility] ED NOTE HNO ID: [id number] Author: Shawna Hamlin RN Service: ? Author Type: Registered Nurse Type: ED Notes Filed: 03/06/2023 1:05 PM Note Text: Bed: ED-01 Expected date: 03/06/23 Expected time: 12:57 PM Means of arrival: [facility] Comments: EUC42 Normal [facility] ED PROV NOTEon 03-06-2023 ED PROV NOTE HNO ID: [id number] Author: Reynaldo Grant MD Service: Emergency Medicine Author Type: Physician Type: ED Provider Notes Filed: 03/06/2023 10:24 PM Note Text: ED Provider Note Patient Name: Edward Crowder : 1970 SERVICE DATE: 03/06/23 History Patient presents with: Behavioral Problem Edward Crowder is a 52 year old male with PMH including alcohol and stimulant abuse presenting via EMS from [facility] for psychiatric evaluation. a care manufacturing team leader from [facility] called ahead and discussed with me about this patient. She reports over the last few days the patient has had paranoia, frequently raising concerns that he is being poisoned. He has had elevated heart rate and tremors. She reports the patient has been in their facility since the ninth of this month so she has low suspicion for alcohol withdrawal at this point. Patient confirms that he feels that someone is trying to harm him, reports that since is not targeted at 1 specific person. Reports he takes Zoloft, lisinopril, and gabapentin. States he frequently has tremors but they are worse today. Denies homicidal or suicidal ideation. Reports intermittent auditory hallucinations, denies command hallucinations. PAST MEDICAL HISTORY Diagnosis Date Anxiety Tobacco use PAST SURGICAL HISTORY Procedure Laterality Date NONE FAMILY HISTORY Problem Relation Age of Onset Diabetes Mother Diabetes Maternal Grandmother Cancer Son 17 Arthritis Other mother's side of family Arthritis Other father's side of family Social History Tobacco Use Smoking status: Every Day Packs/day: 0.50 Years: 30.00 Additional pack years: 0.00 Total pack years: 15.00 Types: Cigarettes Smokeless tobacco: Never Vaping Use Vaping Use: Never used Substance and Sexual Activity Alcohol use: No Drug use: Not Currently Comment: percocet, oxycontin,IV heroin Sexual activity: Not on file ALLERGIES No Known Allergies Review of Systems Constitutional: Negative for fever. Respiratory: Negative for shortness of breath. Cardiovascular: Negative for chest pain. Gastrointestinal: Negative for abdominal pain and vomiting. Psychiatric/Behavioral: Positive for hallucinations. Negative for suicidal ideas. The patient is nervous/anxious. Physical Exam Vitals BP Pulse Temp Temp src Resp SpO2 Weight Height 03/06/23 1310 03/06/23 1310 03/06/23 1310 03/06/23 1310 03/06/23 1310 03/06/23 1306 03/06/23 1306 -- 109/72 (!) 112 37.1 ?C (98.8 ?F) Oral 18 96 % 90.7 kg (200 lb) Physical Exam Vitals and nursing note reviewed. Constitutional: General: He is not in acute distress. Appearance: He is not toxic-appearing or diaphoretic. HENT: Head: Normocephalic and atraumatic. Neurological: Mental Status: He is alert. Comments: Alert, oriented x3. Tremulous and psychomotor agitated, rocking while sitting in bed. Moves all 4 extremities with symmetric strength. No facial droop. No dysarthria. Psychiatric: Comments: Anxious affect, does not appear internally stimulated. Paucity of speech. Denies homicidal or suicidal ideation. Diagnostic Testing ED Labs Ordered and Reviewed - No data to display Procedures ED Course / Clinical Impression ED Course as of 03/06/232218 Reynaldo Grant's Documentation ThuMar 06, 2023 1357 Ethanol: <11 Negative. 1357 COMPREHENSIVE METABOLIC PANEL (BMP+LFT)(!): Protein, Total 8.0 Albumin 4.8 Calcium 9.4 Bilirubin, Total 0.7 Alkaline Phosphatase 103 AST 24 ALT 30 Glucose 93 BUN 16 Creatinine 1.16 Sodium 137 Potassium 4.1 Chloride 102 CO2 21(!) Anion Gap 14 eGFR 77 No clinically significant electrolyte abnormalities. Creatinine near baseline. No elevation in hepatic enzymes or bilirubin. 1358 Magnesium: 1.9 Within normal limits. 1701 Urinalysis w Microscopic, reflex Culture(!): Color Yellow Clarity Clear Glucose, Urine Negative Bilirubin, Urine Negative Ketones, Urine 2+(!) Specific [place], Ur 1.019 Hemoglobin/Blood,Ur Negative pH, Urine 5.5 Protein, Urine Negative Urobilinogen Normal Nitrites Negative Leukest Negative WBC, Urine 0-5 /HPF RBC, Urine 0-3 /HPF UTI unlikely. 1701 Fentanyl Urine: Negative Fentanyl negative. Clinical Impressions as of 03/06/23 2219 Anxious mood Paranoia (HCC) Sinus tachycardia MDM / Disposition / Plan 52-year-old male presenting from [employer] [facility] recovery for tremors and paranoia. On arrival patient is tachycardic but not hypotensive. He is afebrile, breathing comfortably on room air without hypoxia. Patient was too anxious to comply with initial steps of psychiatric evaluation such as changing into gown. He was given 5 mg of intramuscular midazolam with significant improvement and was able to participate with remainder of initial steps. Labs were obtained for medical clearance for psychiatric evaluation. Patient is medically clear. He was given (more content not included)... Normal [facility] Ethanol [facility] 023 Ethanol [Mass/Vol] mg/dL Normal <11 [facility] Comment on above: Order Comment: Speci men Type: BLOOD SPECIMENOrdering Facility: [facility] Address: [address] [place] [address] Performed By: #### 5 643-2, , ####[facility] LABORATORYCLIA [id number] [place] [id number] [place] FENTANYL SCREEN, QUALITATIVE , URINEon 03-06-2023 fentaNYL Screen Ql (U) Negative Normal Negative [facility] Comment on above: Order Comment: Speci men Type: URINE SPECIMEN Ordering Facility: [facility] Address: [address] [place] [address] Result Comment: Cuto ff threshold at 5 ng/mL. Performed By: #### U FENTS #### [facility] CLIA [id number] [id number] [place] Magnesium [facility] 03-06 Magnesium [Mass/Vol] 1.9 mg/dL Normal 1.7-2.3 [facility] Comment on above: Order Comment: Speci men Type: BLOOD SPECIMENOrdering Facility: [facility] Address: [address] [place] [address] Performed By: #### 5 643-2, , ####[facility] [id number] [place] [address] [place] SARS-CoV-2 RNA Resp Ql NESSA+p yessi 03-06-2023 SARS-CoV-2 (COVID-19) RNA NESSA+probe Ql (Resp) COVID 19 RESULT: Not detected The method used is RT-PCR or an equivalent NAAT method. Reference Range(the expected result in uninfected individuals): Not detected Normal [facility] Comment on above: Performed By: #### 9 4500-6 ####[facility] [id number] [address] [place] TOX SCREEN ROUT URon 023 Amphetamines Confirm (U) [Mass/Vol] Negative Normal Negative [facility] Comment on above: Order Comment: Speci men Type: URINE SPECIMEN Ordering Facility: [facility] Address: [address] [place] [address] Result Comment: Cuto ff threshold at 1000 ng/mL. Performed By: #### U TOX2 #### [facility] CLIA [id number] [place] [address] [place] BARBITURATES, URINE Negative Normal Negative [facility] Comment on above: Order Comment: Speci men Type: URINE SPECIMEN Ordering Facility: [facility] Address: [address] [place] [address] Result Comment: Cuto ff threshold at 200 ng/mL. Performed By: #### U TOX2 #### [facility] CLIA [id number] [address] [place] [address] [place] BENZODIAZEPINES, UR Positive Abnormal Negative [facility] Comment on above: Order Comment: Speci men Type: URINE SPECIMEN Ordering Facility: [facility] Address: [address] [place] [address] Result Comment: Cuto ff threshold at 200 ng/mL. Performed By: #### U TOX2 #### [facility] CLIA [id number] [address] [place] [address] [place] Cannabinoids Screen Ql (U) Negative Normal Negative [facility] Comment on above: Order Comment: Speci men Type: URINE SPECIMEN Ordering Facility: [facility] Address: [address] [address] Result Comment: Cuto ff threshold at 50 ng/mL. Performed By: #### U TOX2 #### [facility] CLIA [id number] [place] [address] [place] Cocaine Ql (U) Negative Normal Negative [facility] Comment on above: Order Comment: Speci men Type: URINE SPECIMEN Ordering Facility: [facility] Address: [address] [address] Result Comment: Cuto ff threshold at 300 ng/mL. Performed By: #### U TOX2 #### [facility] CLIA [id number] [address] [place] [address] [place] Ethanol (U) [Mass/Vol] <11 Normal <11 Eu [facility] Comment on above: Order Comment: Speci men Type: URINE SPECIMEN Ordering Facility: [facility] Address: [address] [address] Performed By: #### U TOX2 #### [facility] CLIA [id number] [address] [place] [address] [place] Opiates Screen Ql (U) Negative Normal Negative [facility] Comment on above: Order Comment: Speci men Type: URINE SPECIMEN Ordering Facility: [facility] Address: [address] [address] Result Comment: Cuto ff threshold at 300 ng/mL. Performed By: #### U TOX2 #### [facility] CLIA [id number] [place] [address] [place] oxyCODONE cutoff Screen (U) [Mass/Vol] Negative Normal Negative [facility] Comment on above: Order Comment: Speci men Type: URINE SPECIMEN Ordering Facility: [facility] Address: [address] [address] Result Comment: Cuto ff threshold at 100 ng/mL. Performed By: #### U TOX2 #### [facility] CLIA [id number] [place] Phencyclidine Ql (U) Negative Normal Negative [facility] Comment on above: Order Comment: Speci men Type: URINE SPECIMEN Ordering Facility: [facility] Address: [address] [address] Result Comment: Cuto ff threshold at 25 ng/mL. Performed By: #### U TOX2 #### [facility] CLIA [id number] [place] [address] [place] Urinalysis complete panel (U )on 03-06-2023 Bilirubin Ql (U) Negative Normal Negative [facility] Comment on above: Order Comment: Speci men Type: URINE SPECIMEN Ordering Facility: [facility] Address: [address] [place] [address] Performed By: #### 2 4356-8 #### [facility] CLIA [id number] [place] [address] [place] Clarity (Unsp spec) Clear Normal Clear [facility] Comment on above: Order Comment: Speci men Type: URINE SPECIMEN Ordering Facility: [facility] Address: [address] [address] Performed By: #### 2 4356-8 #### [facility] CLIA [id number] [address] [place] [address] STATES [facility] Color (U) Yellow Normal yellow [facility] Comment on above: Order Comment: Speci men Type: URINE SPECIMEN Ordering Facility: [facility] Address: [address] [address] Performed By: #### 2 4356-8 #### [facility] CLIA [id number] [place] [address] [place] Glucose Test strip (U) [Mass/Vol] Negative Normal Tr ambreen, Negative [facility] Comment on above: Order Comment: Speci men Type: URINE SPECIMEN Ordering Facility: [facility] Address: [address] [address] Performed By: #### 2 4356-8 #### [facility] CLIA [id number] [address] [place] [address] [place] Hemoglobin Ql (U) Negative Normal Negative, Trace [facility] Comment on above: Order Comment: Speci men Type: URINE SPECIMEN Ordering Facility: [facility] Address: [address] [address] Performed By: #### 2 4356-8 #### [facility] CLIA [id number] [address] [place] [address] [place] Ketones Ql (U) 2+ Abnormal Negative, Trace [facility] Comment on above: Order Comment: Speci men Type: URINE SPECIMEN Ordering Facility: [facility] Address: [address] [address] Performed By: #### 2 4356-8 #### [facility] CLIA [id number] [address] [place] [address] [place] Leukocyte esterase Test stri p Ql (U) Negative Normal Negative, 25 Paco/uL [facility] [place] Comment on above: Order Comment: Speci men Type: URINE SPECIMEN Ordering Facility: [facility] Address: [address] [address] Performed By: #### 2 4356-8 #### [facility] CLIA [id number] [address] [place] Nitrite Ql (U) Negative Normal Negative [facility] Comment on above: Order Comment: Speci men Type: URINE SPECIMEN Ordering Facility: [facility] Address: [address] [address] Performed By: #### 2 4356-8 #### [facility] CLIA [id number] [address] [place] pH (U) 5.5 [pH] Normal 5.0-8.0 [facility] Comment on above: Order Comment: Speci men Type: URINE SPECIMEN Ordering Facility: [facility] Address: [address] [address] Performed By: #### 2 4356-8 #### [facility] CLIA [id number] [address] [place] [address] [place] Protein (U) [Mass/Vol] Negative Normal Trace, Negati ve [facility] Comment on above: Order Comment: Speci men Type: URINE SPECIMEN Ordering Facility: [facility] Address: [address] [place] [address] Performed By: #### 2 4356-8 #### [facility] CLIA [id number] [address] [place] [address] [place] RBC LM.HPF (Urine sed) [#/Area] 0-3 /HPF Normal 0-3 /HPF [facility] Comment on above: Order Comment: Speci men Type: URINE SPECIMEN Ordering Facility: [facility] Address: [address] [place] [address] Performed By: #### 2 4356-8 #### [facility] CLIA [id number] [place] [address] [place] Specific gravity (U) [Rel density] 1.019 Normal 1 .005-1.030 [facility] Comment on above: Order Comment: Speci men Type: URINE SPECIMEN Ordering Facility: [facility] Address: [address] [place] [address] Performed By: #### 2 4356-8 #### [facility] CLIA [id number] [place] [address] [place] Urobilinogen Ql (U) Normal Normal Negative [facility] Comment on above: Order Comment: Speci men Type: URINE SPECIMEN Ordering Facility: [facility] Address: [address] [place] [address] Performed By: #### 2 4356-8 #### [facility] CLIA [id number] [place] [address] [place] WBC LM.HPF (Urine sed) [#/Area] 0-5 /HPF Normal 0-5 /HPF [facility] Comment on above: Order Comment: Speci men Type: URINE SPECIMEN Ordering Facility: [facility] Address: [address] [place], [place] [address], [place] [address] Performed By: #### 2 4356-8 #### [facility] CLIA [id number] [address] [place] [address] [place] Valproate [Mass/volume] in S kamari or PlasmaOrdered By: Paulo Strauss on 02-16-2023 Valproate [Mass/Vol] 61.3 ug/mL 50.0-100.0 [facility] Comment on above: Last dose: - Valproic Acid (in house)on 0 02-16-2023 Valproic Acid (in house) 61.3 ug/mL Normal 50.0-100.0 [facility] Comment on above: Result Comment: Last dose: - PERFORMED BY: [place] [address] PATHOLOGIST ALGOLOGIST TIMUR PHILLIPS M.D. Performed By: #### C MP, CBC, ACET, TOSHIA, ETOH #### [address] Cholesterol [Mass/volume] in Serum or PlasmaOrdered By: Naeem Rodriges on 02-12-2023 Cholesterol [Mass/Vol] 135 mg/dL 140-200 [facility] Comment on above: Chol less than 200 m g/dl low riskChol 201-239 mg/dl borderline riskChol 240 mg/dl and greater high risk Cholesterol in LDL Calc [Mas s/Vol]Ordered By: Naeem Rodriges on 02-12-2023 Cholesterol in LDL [Mass/Vol] 74 mg/dL 0-100 [facility] Comment on above: LDL ATP III CLASSIFI CATIONLDL less than 100 mg/dL OptimalLDL 100-129 mg/dL Near or above optimalLDL 130-159 mg/dL Borderline highLDL 160-189 mg/dL HighLDL greater than 189 mg/dL Very high Cholesterol in VLDL Calc [Ma ss/Vol]Ordered By: Naeem Rodriges on 02-12-2023 Cholesterol in VLDL [Mass/Vol] 10 mg/dL [facility] ECG 12 lead ECGon 02-12-[address] [facility] [place] [address] [place] [id number] Electrocardiograph Report Signed Patient: Edward Crowder MR#: [id number] : 1970 Acct:[id number] Age/Sex: 52 / M ADM Date: 02/11/23 Loc: 1S Room: [address] [place] [address] Type: ADM IN Attending Dr: Thuy Rodriges MD Ordering Provider: Naeem Rodirges MD Date of Service: 02/12/2310/02/499 ECG/ECG 12 lead ECG: New Admit Copies to: Test Reason : Blood Pressure : / mmHG Vent. Rate : 075 BPM Atrial Rate : 075 BPM P-R Int : 148 ms QRS Dur : 092 ms QT Int : 374 ms P-R-T Axes : 056 074 066 degrees QTc Int : 417 ms Normal sinus rhythm Normal ECG When compared with ECG of 09-SEP-2022 17:49, No significant change was found Confirmed by CAMRYN WHITT DO ([id number]) on 02/13/2023 6:37:46 AM Referred By: Electronically Signed By:CAMRYN WHITT DO Transcribed By: MUS Signed By Camryn Whitt DO 02/13 0637 Normal [facility] Lipid Panelon 02-12-2023 Cholesterol [Mass/Vol] 135 mg/dL Low 140-200 [facility] Comment on above: Result Comment: Chol less than 200 mg/dl low risk Chol 201-239 mg/dl borderline risk Chol 240 mg/dl and greater high risk Performed By: #### C K #### [facility] [address] [place] [address] [place] Cholesterol in HDL [Mass/Vol] 50 mg/dL Normal 23-92 [facility] Comment on above: Result Comment: HDL CHOL ATP-III CLASSIFICATION Cardiovascular Risk HDL > or equal to 60 mg/dL LOW HDL < 40 mg/dL HIGH Performed By: #### C K #### [facility] [address] [place] [address] [place] Cholesterol.total/Cholestero l in HDL [Mass ratio] 2.7 {ratio} Normal <5.0 [facility] Comment on above: Performed By: #### C K #### [facility] [address] LDL Cholesterol,Calculated 74 mg/dL Normal 0-100 [facility] Comment on above: Result Comment: LDL ATP III CLASSIFICATION LDL less than 100 mg/dL Optimal LDL 100-129 mg/dL Near or above optimal LDL 130-159 mg/dL Borderline high LDL 160-189 mg/dL High LDL greater than 189 mg/dL Very high Performed By: #### C K #### [facility] [address] Triglyceride w/Reflex 54 mg/dL Normal 0-149 [facility] Comment on above: Result Comment: TRIG ATP III CLASSIFICATION TRIG less than 150 mg/dL Normal TRIG 150-199 mg/dL Borderline high TRIG 200-500 mg/dL High TRIG greater than 500 mg/dL Very high Standard traceable to the Center for Disease Conrtrol and Prevention (CDC) test method. Performed By: #### C K #### [facility] [address] VLDL CHOLESTEROL 10 mg/dL Normal [facility] Comment on above: Performed By: #### C K #### [facility] [address] Serum or plasma high density lipoprotein (HDL) cholesterol measurementOrdered By: Naeem Rodriges on 02-12-2023 Cholesterol in HDL [Mass/Vol] 50 mg/dL 23-92 [facility] Comment on above: HDL CHOL ATP-III CLA SSIFICATION Cardiovascular RiskHDL > or equal to 60 mg/dL LOWHDL < 40 mg/dL HIGH Serum or plasma total choles terol/high density lipoprotein (HDL) cholesterol mass ratOrdered By: Naeem Rodriges on 02-12-2023 Cholesterol.total/Cholestero l in HDL [Mass ratio] 2.7 {ratio} <5.0 [facility] Thyroid Stim Hormone w/Rflxo n 02-12-2023 Thyroid Stim Hormone w/Rflx 1.10 u[iU]/mL Normal 0.45-5.33 [facility] Comment on above: Performed By: #### C K #### [facility] [address] Thyrotropin [Units/volume] i n Serum or PlasmaOrdered By: Naeem Rodriges on 02-12-2023 TSH Qn 1.10 m[IU]/L 0.45-5.33 [facility] Triglyceride [Mass/volume] i n Serum or PlasmaOrdered By: Naeem Rodriges on 02-12-2023 Triglyceride [Mass/Vol] 54 mg/dL 0-149 [facility] Comment on above: TRIG ATP III CLASSIF ICATIONTRIG less than 150 mg/dL NormalTRIG 150-199 mg/dL Borderline highTRIG 200-500 mg/dL High TRIG greater than 500 mg/dL Very highStandard traceable to the Center for Disease Conrtrol and Prevention (CDC) test method. Vitamin D 25 Hydroxy Totalon 02-12-2023 Vitamin D 25 Hydroxy Total 29.2 ng/mL Low 30-100 [facility] Comment on above: Result Comment: JIM MIN D STATUS 25(OH)VITAMIN D RANGE (ng/mL) Deficient <20 Insufficient 20 to <30 Sufficient 30 to 100 Reference: Bradford Haddad, Chris MENDOZA, et al. Evaluation,treatment, and prevention of vitamin D deficiency; an Endocrine Society clinical practice guideline. JCEM. 2010; 96(7):1911-30. PERFORMED BY: [place] [address] PATHOLOGIST ALGOLOGIST TIMUR PHILLIPS M.D. Performed By: #### C K #### [facility] [address] [id number] [facility] Vitamin D+Metabolites [Mass/ volume] in Serum or PlasmaOrdered By: Naeem Rodriges on 02-12-2023 Vitamin D+Metabolites [Mass/Vol] 29.2 ng/mL 30- 100 [facility] Comment on above: VITAMIN D STATUS 25( [place])VITAMIN D RANGE (ng/mL) Deficient <20 Insufficient 20 to <30Sufficient 30 to 100Reference: Bradford Haddad Bischoff-Ferrari HA, et al. Evaluation,treatment, and prevention of vitamin D deficiency; an Endocrine Society clinical practice guideline. JCEM. 2010; 96(7):1911-30. Alanine aminotransferase [En zymatic activity/volume] in Serum or PlasmaOrdered By: Steve Almendarez on 02-11-2023 ALT [Catalytic activity/Vol] 29 U/L 7-52 [facility] Albumin [Mass/volume] in Ser um or Plasma by Bromocresol green (BCG) dye binding methoOrdered By: Steve Almendarez on 02-11-2023 Albumin BCG dye [Mass/Vol] 4.6 g/dL 3.5-5.7 [facility] Alkaline phosphatase [Enzyma tic activity/volume] in Serum or PlasmaOrdered By: Steve Almendarez on 02-11-2023 ALP [Catalytic activity/Vol] 91 U/L 34-104 [facility] Amphetamine Screen Ql (U)Ord ered By: Steve Almendarez on 02-11-2023 Amphetamines Ql (U) Negative Negative [facility] Aspartate aminotransferase [ Enzymatic activity/volume] in Serum or PlasmaOrdered By: Steve Almendarez on 02-11-2023 AST [Catalytic activity/Vol] 23 U/L 13-39 [facility] Barbiturates [Presence] in U rine by Screen methodOrdered By: Steve Almendarez on 02-11-2023 Barbiturates Screen Ql (U) Negative Negative [facility] Basophils Auto (Bld) [#/Vol] Ordered By: Steve Almendarez on 02-11-2023 Basophils (Bld) [#/Vol] 0.0 10*3/uL 0.0-0.2 [facility] Basophils/100 WBC Auto (Bld) Ordered By: Steve Almendarez on 02-11-2023 Basophils/100 WBC (Bld) 0.4 % . [facility] Benzodiazepines Screen Ql (U )Ordered By: Steve Almendarez on 02-11-2023 Benzodiazepines Ql (U) Negative Negative Fi [facility] Benzoylecgonine [Presence] i n Urine by Screen methodOrdered By: Steve Almendarez on 02-11-2023 Benzoylecgonine Screen Ql (U) Negative Negati ve [facility] Bilirubin Test strip Ql (U)O rdered By: Steve Almendarez on 02-11-2023 Bilirubin Ql (U) Negative Negative [facility] Bilirubin.total [Mass/volume ] in Serum or PlasmaOrdered By: Steve Almendarez on 02-11-2023 Bilirubin [Mass/Vol] 0.6 mg/dL 0.3-1.0 [facility] Calcium [Mass/volume] in Ser um or PlasmaOrdered By: Steve Almendarez on 02-11-2023 Calcium [Mass/Vol] 9.3 mg/dL 8.6-10.3 [facility] Cannabinoids [Presence] in U rine by Screen methodOrdered By: Steve Almendarez on 02-11-2023 Cannabinoids Screen Ql (U) Negative Negative [facility] Comment on above: These are unconfirme d results and should not be used for legal purposes. Drug Cut-Off Concentration: AMPH 1000 ng/mL TOMÁS 200 ng/mL SWETHA 200 ng/mL COCM 300 ng/mL OP 300 ng/mL PCP 25 ng/mL THC 20 ng/mL Carbon dioxide, total [Moles /volume] in Serum or PlasmaOrdered By: Steve Almendarez on 02-11-2023 CO2 [Moles/Vol] 22.0 mmol/L 21.0-31.0 [facility] Chloride [Moles/volume] in S kamari or PlasmaOrdered By: Steve Almendarez on 02-11-2023 Chloride [Moles/Vol] 106 mmol/L 98-107 [facility] Color Auto (U)Ordered By: Rico Almendarez on 02-11-2023 Color (U) Yellow Yellow [facility] Complete Blood Count Auto Di ffon 02-11-2023 Basophils (Bld) [#/Vol] 0.0 10*3/uL Normal 0.0-0.2 [facility] Comment on above: Result Comment: PERF ORMED BY: [place] [address] PATHOLOGIST ALGOLOGIST TIMUR PHILLIPS M.D. Performed By: #### C MP, CBC, ACET, TOSHIA, ETOH #### [place] [address] [place] Basophils/100 WBC (Bld) 0.4 % Normal . [facility] Comment on above: Performed By: #### C MP, CBC, ACET, TOSHIA, ETOH #### [address] Eosinophils (Bld) [#/Vol] 0.0 10*3/uL Normal 0.0-0.45 [facility] Comment on above: Performed By: #### C MP, CBC, ACET, TOSHIA, ETOH #### [address] Eosinophils/100 WBC (Bld) 0.2 % Normal . [facility] Comment on above: Performed By: #### C MP, CBC, ACET, TOSHIA, ETOH #### [address] Erythrocyte distribution wid th (RBC) [Ratio] 13.1 % Normal 12.0-14.8 [facility] Comment on above: Performed By: #### C MP, CBC, ACET, TOSHIA, ETOH #### [address] Hematocrit (Bld) [Volume fraction] 48.0 % Normal 38.8-50.0 [facility] Comment on above: Performed By: #### C MP, CBC, ACET, TOSHIA, ETOH #### [address] Hemoglobin (Bld) [Mass/Vol] 16.3 g/dL Normal 13.0-17. 0 [facility] Comment on above: Performed By: #### C MP, CBC, ACET, TOSHIA, ETOH #### [address] Lymphocytes (Bld) [#/Vol] 1.2 10*3/uL Normal 1.00-4.8 [facility] Comment on above: Performed By: #### C MP, CBC, ACET, TOSHIA, ETOH #### [address] Lymphocytes/100 WBC (Bld) 15.3 % Normal . [facility] Comment on above: Performed By: #### C MP, CBC, ACET, TOSHIA, ETOH #### [address] MCH (RBC) [Entitic mass] 30.8 pg Normal 27.5-35.2 [facility] Comment on above: Performed By: #### C MP, CBC, ACET, TOSHIA, ETOH #### [address] MCV (RBC) [Entitic vol] 90.7 fL Normal 83.5-101 [facility] Comment on above: Performed By: #### C MP, CBC, ACET, TOSHIA, ETOH #### [address] Mean Corpuscular HGB Conc 34.0 g/dL Normal 32.5-35.6 [facility] Comment on above: Performed By: #### C MP, CBC, ACET, TOSHIA, ETOH #### [address] Monocytes (Bld) [#/Vol] 0.7 10*3/uL Normal 0.0-0.8 [facility] Comment on above: Performed By: #### C MP, CBC, ACET, TOSHIA, ETOH #### [address] Monocytes/100 WBC (Bld) 16.44 % Normal 0.00-20.00 [facility] Comment on above: Performed By: #### C MP, CBC, ACET, TOSHIA, ETOH #### [address] Monocytes/100 WBC (Bld) 9.0 % Normal . [facility] Comment on above: Performed By: #### C MP, CBC, ACET, TOSHIA, ETOH #### [address] Neutrophils (Bld) [#/Vol] 6.0 10*3/uL Normal 1.8-7.7 [facility] Comment on above: Performed By: #### C MP, CBC, ACET, TOSHIA, ETOH #### [address] Neutrophils/100 WBC (Bld) 75.1 % Normal . [facility] Comment on above: Performed By: #### C MP, CBC, ACET, TOSHIA, ETOH #### [address] NRBC% 0.2 /100{WBC} Normal 0-0.5 [facility] Comment on above: Performed By: #### C MP, CBC, ACET, TOSHIA, ETOH #### [address] Platelet mean volume (Bld) [Entitic vol] 7.8 fL Normal 6.6-10.1 [facility] Comment on above: Performed By: #### C MP, CBC, ACET, TOSHIA, ETOH #### [address] Platelets (Bld) [#/Vol] 313 10*3/uL Normal 150-450 [facility] Comment on above: Performed By: #### C MP, CBC, ACET, TOSHIA, ETOH #### [address] RBC (Bld) [#/Vol] 5.30 10*6/uL Normal 3.90-5.60 [facility] Comment on above: Performed By: #### C MP, CBC, ACET, TSOHIA, ETOH #### [address] WBC (Bld) [#/Vol] 7.9 10*3/uL Normal 4.1-10.5 [facility] Comment on above: Performed By: #### C MP, CBC, ACET, TOSHIA, ETOH #### [address] Comprehensive Metabolic Pane darlene 02-11-2023 Albumin [Mass/Vol] 4.6 g/dL Normal 3.5-5.7 [facility] Comment on above: Performed By: #### C MP, CBC, ACET, TOSHIA, ETOH #### [address] Albumin/Globulin [Mass ratio] 1.5 {ratio} Normal [facility] Comment on above: Performed By: #### C MP, CBC, ACET, TOSHIA, ETOH #### [facility] [address] ALP [Catalytic activity/Vol] 91 U/L Normal 34-104 [facility] Comment on above: Performed By: #### C MP, CBC, ACET, TOSHIA, ETOH #### [address] ALT [Catalytic activity/Vol] 29 U/L Normal 7-52 [facility] Comment on above: Performed By: #### C MP, CBC, ACET, TOSHIA, ETOH #### [address] Anion gap [Moles/Vol] 13.2 mmol/L Normal 6.0-15.0 [facility] Comment on above: Performed By: #### C MP, CBC, ACET, TOSHIA, ETOH #### [address] AST [Catalytic activity/Vol] 23 U/L Normal 13-39 [facility] Comment on above: Performed By: #### C MP, CBC, ACET, TOSHIA, ETOH #### [address] Bilirubin [Mass/Vol] 0.6 mg/dL Normal 0.3-1.0 [facility] Comment on above: Performed By: #### C MP, CBC, ACET, TOSHIA, ETOH #### [address] Calcium [Mass/Vol] 9.3 mg/dL Normal 8.6-10.3 [facility] Comment on above: Performed By: #### C MP, CBC, ACET, TOSHIA, ETOH #### [address] Chloride [Moles/Vol] 106 mmol/L Normal 98-107 [facility] Comment on above: Performed By: #### C MP, CBC, ACET, TOSHIA, ETOH #### [facility] [address] CO2 [Moles/Vol] 22.0 mmol/L Normal 21.0-31.0 [facility] Comment on above: Performed By: #### C MP, CBC, ACET, TOSHIA, ETOH #### [facility] [address] Creatinine [Mass/Vol] 0.96 mg/dL Normal 0.70-1.30 [facility] Comment on above: Performed By: #### C MP, CBC, ACET, TOSHIA, ETOH #### [facility] [address] Creatinine Clr Calc Pharmacy 0.12 [facility] Comment on above: Result Comment: PERF ORMED BY: [place] [address] PATHOLOGIST ALGOLOGIST TIMUR PHILLIPS M.D. Performed By: #### C MP, CBC, ACET, TOSHIA, ETOH #### [address] GFR/1.73 sq M.predicted MDRD (S/P/Bld) [Vol rate/Area] mL/min/{1.73_m2} Normal [facility] Comment on above: Performed By: #### C MP, CBC, ACET, TOSHIA, ETOH #### [facility] [address] Globulin (S) [Mass/Vol] 3.0 g/dL Normal [facility] Comment on above: Performed By: #### C MP, CBC, ACET, TOSHIA, ETOH #### [facility] [address] Glucose [Mass/Vol] 80 mg/dL Normal 70-100 [facility] Comment on above: Result Comment: [place] Glucose Reference Range is dependent on time and content of last meal. Glucose of more than 200 mg/dL in a nonstressed, ambulatory subject supports the diagnosis of Diabetes Mellitus. ADA recommended reference range Performed By: #### C MP, CBC, ACET, TOSHIA, ETOH #### [address] Potassium [Moles/Vol] 4.2 mmol/L Normal 3.5-5.1 [facility] Comment on above: Performed By: #### C MP, CBC, ACET, TOSHIA, ETOH #### [address] Protein [Mass/Vol] 7.6 g/dL Normal 6.4-8.9 [facility] Comment on above: Performed By: #### C MP, CBC, ACET, TOSHIA, ETOH #### [address] Sodium [Moles/Vol] 137 mmol/L Normal 136-145 [facility] Comment on above: Performed By: #### C MP, CBC, ACET, TOSHIA, ETOH #### [address] Urea nitrogen [Mass/Vol] 16 mg/dL Normal 7-25 [facility] Comment on above: Performed By: #### C MP, CBC, ACET, TOSHIA, ETOH #### [address] Creatinine [Mass/volume] in Serum or PlasmaOrdered By: Steve Almendarez on 02-11-2023 Creatinine [Mass/Vol] 0.96 mg/dL 0.70-1.30 [facility] Drug Screen,Urineon 02-12-20 Amphetamine Screen,Urine Negative Normal Negative [facility] Comment on above: Performed By: #### C MP, CBC, ACET, TOSHIA, ETOH #### [place] [address] [place] Barbiturate Screen,Urine Negative Normal Negative [facility] Comment on above: Performed By: #### C MP, CBC, ACET, TOSHIA, ETOH #### [place] [address] [place] Benzodiazepines Screen,Urine Negative Normal Negativ e [facility] Comment on above: Performed By: #### C MP, CBC, ACET, TOSHIA, ETOH #### [address] Cannabinoid Screen,Urine Negative Normal Negative [facility] Comment on above: Result Comment: Thes e are unconfirmed results and should not be used for legal purposes. Drug Cut-Off Concentration: AMPH 1000 ng/mL TOMÁS 200 ng/mL SWETHA 200 ng/mL COCM 300 ng/mL OP 300 ng/mL PCP 25 ng/mL THC 20 ng/mL PERFORMED BY: [place] [address] PATHOLOGIST ALGOLOGIST TIMUR PHILLIPS M.D. Performed By: #### C MP, CBC, ACET, TOSHIA, ETOH #### [address] Cocaine Screen,Urine Negative Normal Negative [facility] Comment on above: Performed By: #### C MP, CBC, ACET, TOSHIA, ETOH #### [address] Opiate Screen,Urine Negative Normal Negative [facility] Comment on above: Performed By: #### C MP, CBC, ACET, TOSHIA, ETOH #### [address] Phencyclidine Screen,Urine Negative Normal Negative [facility] Comment on above: Performed By: #### C MP, CBC, ACET, TOSHIA, ETOH #### [address] Eosinophils Auto (Bld) [#/Vo l]Ordered By: Steve Almendarez on 02-11-2023 Eosinophils (Bld) [#/Vol] 0.0 10*3/uL 0.0-0.45 [facility] Eosinophils/100 WBC Auto (Bl d)Ordered By: Steve Almendarez on 02-11-2023 Eosinophils/100 WBC (Bld) 0.2 % . [facility] Erythrocyte distribution wid th Auto (RBC) [Ratio]Ordered By: Steve Almendarez on 02-11-2023 Erythrocyte distribution wid th (RBC) [Ratio] 13.1 % 12.0-14.8 [facility] Ethanol [Mass/volume] in Ser um or PlasmaOrdered By: Steve Almendarez on 02-11-2023 Ethanol [Mass/Vol] 103 mg/dL [facility] Ethanol [Mass/Vol] 0.103 % [facility] Ethyl Alcohol Profileon Ethanol [Mass/Vol] 103 mg/dL Normal [facility] Comment on above: Performed By: #### C MP, CBC, ACET, TOSHIA, ETOH #### [facility] [address] [place] [address] [place] Percent Ethanol 0.103 % Normal [facility] Comment on above: Result Comment: PERF ORMED BY: [facility] [address] [place] [address] PATHOLOGIST ALGOLOGIST TIMUR PHILLIPS M.D. Performed By: #### C MP, CBC, ACET, TOSHIA, ETOH #### [facility] [address] Globulin Calc (S) [Mass/Vol] Ordered By: Steve Almendarez on 02-11-2023 Globulin (S) [Mass/Vol] 3.0 g/dL F [facility] Glucose [Mass/volume] in Ser um or PlasmaOrdered By: Steve Almendarez on 02-11-2023 Glucose [Mass/Vol] 80 mg/dL 70-100 [facility] Comment on above: ADA recommended refe rence rangeRandom Glucose Reference Range is dependent on time and content of last meal. Glucose of more than 200 mg/dL in a nonstressed, ambulatory subject supports the diagnosis of Diabetes Mellitus. Hematocrit Auto (Bld) [Volum e fraction]Ordered By: Steve Almendarez on 02-11-2023 Hematocrit (Bld) [Volume fraction] 48.0 % 3 8.8-50.0 [facility] Hemoglobin [Mass/volume] in BloodOrdered By: Steve Almendarez on 02-11-2023 Hemoglobin (Bld) [Mass/Vol] 16.3 g/dL 13.0-17. 0 [facility] Ketones Auto test strip (U) [Mass/Vol]Ordered By: Steve Almendarez on 02-11-2023 Ketones (U) [Mass/Vol] Negative Negative Fi [facility] Leukocytes [#/volume] correc bia for nucleated erythrocytes in Blood by Automated counOrdered By: Steve Almendarez on 02-11-2023 WBC corrected for nucl RBC A uto (Bld) [#/Vol] 7.9 10*3/uL 4.1-10.5 [facility] Lymphocytes Auto (Bld) [#/Vo l]Ordered By: Steve Almendarez on 02-11-2023 Lymphocytes (Bld) [#/Vol] 1.2 10*3/uL 1.00-4.8 [facility] Lymphocytes/100 WBC Auto (Bl d)Ordered By: Steve Almendarez on 02-11-2023 Lymphocytes/100 WBC (Bld) 15.3 % . [facility] MCH Auto (RBC) [Entitic mass ]Ordered By: Steve Almendarez on 02-11-2023 MCH (RBC) [Entitic mass] 30.8 pg 27.5-35.2 [facility] MCHC Auto (RBC) [Mass/Vol]Or dered By: Steve Almendarez on 02-11-2023 MCHC (RBC) [Mass/Vol] 34.0 g/dL 32.5-35.6 [facility] MCV Auto (RBC) [Entitic vol] Ordered By: Steve Almendarez on 02-11-2023 MCV (RBC) [Entitic vol] 90.7 fL 83.5-101 F [facility] Monocyte distribution width [Entitic volume] in Blood by AutomatedOrdered By: Steve Almendarez on 02-11-2023 Monocyte distribution width Auto (Bld) [Entitic vol] 16.44 % 0.00-20.00 [facility] Monocytes Auto (Bld) [#/Vol] Ordered By: Steve Almendarez on 02-11-2023 Monocytes (Bld) [#/Vol] 0.7 10*3/uL 0.0-0.8 [facility] Monocytes/100 WBC Auto (Bld) Ordered By: Steve Almendarez on 02-11-2023 Monocytes/100 WBC (Bld) 9.0 % . F [facility] Neutrophils Auto (Bld) [#/Vo l]Ordered By: Steve Almendarez on 02-11-2023 Neutrophils (Bld) [#/Vol] 6.0 10*3/uL 1.8-7.7 [facility] Neutrophils/100 WBC Auto (Bl d)Ordered By: Steve Almendarez on 02-11-2023 Neutrophils/100 WBC (Bld) 75.1 % . [facility] Nitrite Test strip Ql (U)Ord ered By: Steve Almendarez on 02-11-2023 Nitrite Ql (U) Negative Negative [facility] No Panel InformationOrdered By: Steve Almendarez on 02-11-2023 Estimated GFR (CKD-EPI) > 60.0 mL/Min [facility] Creatinine Clearanc e (Chem 0.12 [facility] Nucleated erythrocytes [Pres ence] in Blood by Automated countOrdered By: Steve Almendarez on 02-11-2023 Nucleated RBC Auto Ql (Bld) 0.2 /100{WBC} 0-0.5 [facility] Opiates [Presence] in Urine by Screen methodOrdered By: Steve Almendarez on 02-11-2023 Opiates Screen Ql (U) Negative Negative [facility] Phencyclidine Screen Ql (U)O rdered By: Steve Almendarez on 02-11-2023 Phencyclidine Ql (U) Negative Negative [facility] Platelet mean volume Auto (B ld) [Entitic vol]Ordered By: Steve Almendarez on 02-11-2023 Platelet mean volume (Bld) [Entitic vol] 7.8 fL 6.6-10.1 [facility] Platelets Auto (Bld) [#/Vol] Ordered By: Steve Almendarez on 02-11-2023 Platelets (Bld) [#/Vol] 313 10*3/uL 150-450 [facility] Potassium [Moles/volume] in Serum or PlasmaOrdered By: Steve Almendarez on 02-11-2023 Potassium [Moles/Vol] 4.2 mmol/L 3.5-5.1 [facility] Protein Auto test strip (U) [Mass/Vol]Ordered By: Steve Almendarez on 02-11-2023 Protein (U) [Mass/Vol] Negative Negative [facility] Protein [Mass/volume] in Ser um or PlasmaOrdered By: Steve Almendarez on 02-11-2023 Protein [Mass/Vol] 7.6 g/dL 6.4-8.9 [facility] RBC Auto (Bld) [#/Vol]Ordere d By: Steve Almendarez on 02-11-2023 RBC (Bld) [#/Vol] 5.30 10*6/uL 3.90-5.60 [facility] Serum or plasma albumin/glob ulin mass ratioOrdered By: Steve Almendarez on 02-11-2023 Albumin/Globulin [Mass ratio] 1.5 {ratio} [facility] Serum or plasma anion gap de terminationOrdered By: Steve Almendarez on 02-11-2023 Anion gap [Moles/Vol] 13.2 mmol/L 6.0-15.0 [facility] Sodium [Moles/volume] in Ser um or PlasmaOrdered By: Steve Almendarez on 02-11-2023 Sodium [Moles/Vol] 137 mmol/L 136-145 [facility] Specific gravity Auto test s trip (U) [Rel density]Ordered By: Steve Almendarez on 02-11-2023 Specific gravity (U) [Rel density] 1.003 1.001-1.030 [facility] Urea nitrogen [Mass/volume] in Serum or PlasmaOrdered By: Steve Almendarez on 02-11-2023 Urea nitrogen [Mass/Vol] 16 mg/dL 7-25 [facility] Urinalysison 02-11-2023 Appearance (U) Clear Normal Clear [facility] Comment on above: Order Comment: Name Collection Type:: Clean-Voided Midstream Performed By: #### C MP, CBC, ACET, TOSHIA, ETOH #### [facility] [address] [place] [address] [place] Bilirubin,Urine Negative Normal Negative [facility] Comment on above: Order Comment: Name Collection Type:: Clean-Voided Midstream Performed By: #### C MP, CBC, ACET, TOSHIA, ETOH #### [facility] [address] [place] [address] [place] Color (U) Yellow Normal Yellow [facility] Comment on above: Order Comment: Name Collection Type:: Clean-Voided Midstream Performed By: #### C MP, CBC, ACET, TOSHIA, ETOH #### [address] Glucose Ql (U) Normal Normal Normal [facility] Comment on above: Order Comment: Name Collection Type:: Clean-Voided Midstream Performed By: #### C MP, CBC, ACET, TOSHIA, ETOH #### [address] Ketones Ql (U) Negative Normal Negative [facility] Comment on above: Order Comment: Name Collection Type:: Clean-Voided Midstream Performed By: #### C MP, CBC, ACET, TOSHIA, ETOH #### [address] Leukocyte esterase Test stri p Ql (U) Negative Normal Negative [facility] Comment on above: Order Comment: Name Collection Type:: Clean-Voided Midstream Performed By: #### C MP, CBC, ACET, TOSHIA, ETOH #### [address] Nitrite,Urine Negative Normal Negative [facility] Comment on above: Order Comment: Name Collection Type:: Clean-Voided Midstream Performed By: #### C MP, CBC, ACET, TOSHIA, ETOH #### [address] Occult Blood,Urine Negative Normal Negative [facility] Comment on above: Order Comment: Name Collection Type:: Clean-Voided Midstream Result Comment: PERF ORMED BY: [place] [address] PATHOLOGIST ALGOLOGIST TIMUR PHILLIPS M.D. Performed By: #### C MP, CBC, ACET, TOSHIA, ETOH #### [address] pH (U) 5.5 [pH] Normal 5.0-9.0 [facility] Comment on above: Order Comment: Name Collection Type:: Clean-Voided Midstream Performed By: #### C MP, CBC, ACET, TOSHIA, ETOH #### [address] [place] [address] [place] Protein,Urine Negative Normal Negative [facility] Comment on above: Order Comment: Name Collection Type:: Clean-Voided Midstream Performed By: #### C MP, CBC, ACET, TOSHIA, ETOH #### [facility] [address] Specificy [place],Urine 1.003 Normal 1.001-1.030 [facility] Comment on above: Order Comment: Name Collection Type:: Clean-Voided Midstream Performed By: #### C MP, CBC, ACET, TOSHAI, ETOH #### [facility] [address] Urobilinogen,Urine Normal Normal Normal [facility] Comment on above: Order Comment: Name Collection Type:: Clean-Voided Midstream Performed By: #### C MP, CBC, ACET, TOSHIA, ETOH #### [facility] [address] Urine clarity by refractomet ry automatedOrdered By: Steve Almendarez on 02-11-2023 Clarity Refractometry automated (U) Clear Clear [facility] Urine glucose measurement by automated test strip (mass/volume)Ordered By: Steve Almendarez on 02-11-2023 Glucose Auto test strip (U) [Mass/Vol] Normal mg/dL Normal [facility] Urine hemoglobin detection b y automated test stripOrdered By: Steve Almendarez on 02-11-2023 Hemoglobin Auto test strip Ql (U) Negative Ne gative [facility] Urine leukocyte esterase det ection by automated test stripOrdered By: Steve Almendarez on 02-11-2023 Leukocyte esterase Auto test strip Ql (U) Negative Negative [facility] Urobilinogen Auto test strip (U) [Mass/Vol]Ordered By: Steve Almendarez on 02-11-2023 Urobilinogen (U) [Mass/Vol] Normal mg/dL Normal [facility] WBC Auto (Bld) [#/Vol]Ordere d By: Steve Almendarez on 02-11-2023 WBC (Bld) [#/Vol] 7.9 10*3/uL 4.1-10.5 [facility] pH Auto test strip (U)Ordere d By: Steve Almendarez on 02-11-2023 pH (U) 5.5 [pH] 5.0-9.0 [facility] Acetaminophenon 09-23-2022 Acetaminophen [Mass/Vol] ug/mL Low 10-30 [facility] Comment on above: Performed By: #### U AR #### [facility] [address] [place] [address] Acetaminophen Levelon 2022 Acetaminophen Level <5 Low 10 - 30 ug/mL [facility] Alcoholon 09-23-2022 Blood Alcohol Concentration Not indicated Normal [facility] Comment on above: Performed By: #### U AR #### [facility] [address] [place] [address] Ethanol [Mass/Vol] mg/dL Normal [facility] Comment on above: Performed By: #### U AR #### [facility] [address] [place] [address] CBC With Platelet and Differ entialon 09-23-2022 Basophils (Bld) [#/Vol] 0.0 10*3/uL Normal 0.0-0.2 [facility] Comment on above: Performed By: #### U AR #### [facility] [address] [place] [address] Basophils/100 WBC (Bld) 0.3 % Normal [facility] Comment on above: Performed By: #### U AR #### [facility] [address] [place] [address] Eosinophils (Bld) [#/Vol] 0.0 10*3/uL Normal 0.0-0.7 [facility] Comment on above: Performed By: #### U AR #### [facility] [address] [place] [address] Eosinophils/100 WBC (Bld) 0.0 % Normal [facility] Comment on above: Performed By: #### U AR #### [facility] [address] [place] [address] Erythrocyte distribution wid th (RBC) [Ratio] 13.5 % Normal 11.5-14.5 [facility] Comment on above: Performed By: #### U AR #### [facility] [address] [place] [address] Hematocrit (Bld) [Volume fraction] 50.9 % Normal 42.0-52.0 [facility] Comment on above: Performed By: #### U AR #### [facility] [address] [place] [address] Hemoglobin (Bld) [Mass/Vol] 17.4 g/dL Normal 14.0-18. 0 [facility] Comment on above: Performed By: #### U AR #### [facility] [address] [place] [address] Lymphocytes (Bld) [#/Vol] 0.8 10*3/uL Low 1.0-4.8 [facility] Comment on above: Performed By: #### U AR #### [facility] [address] [place] [address] Lymphocytes/100 WBC (Bld) 6.6 % Normal [facility] Comment on above: Performed By: #### U AR #### [facility] [address] [place] [address] MCH (RBC) [Entitic mass] 31.3 pg Normal 27.0-31.3 [facility] Comment on above: Performed By: #### U AR #### [facility] [address] [place] [address] MCHC 34.1 % Normal 33.0-37.0 [facility] Comment on above: Performed By: #### U AR #### [facility] [address] [place] [address] MCV (RBC) [Entitic vol] 91.7 fL Normal 79.0-92.2 [facility] Comment on above: Performed By: #### U AR #### [facility] [address] [place] [address] Monocytes (Bld) [#/Vol] 1.0 10*3/uL Critically high 0.2-0. 8 [facility] Comment on above: Performed By: #### U AR #### [facility] [address] [place] [address] Monocytes/100 WBC (Bld) 8.3 % Normal [facility] Comment on above: Performed By: #### U AR #### [facility] [address] [place] [address] Neutrophils (Bld) [#/Vol] 10.2 10*3/uL Critically high 1.4 -6.5 [facility] Comment on above: Performed By: #### U AR #### [facility] [address] [place] [address] Neutrophils/100 WBC (Bld) 84.8 % Normal [facility] Comment on above: Performed By: #### U AR #### [facility] [address] [place] [address] Platelets (Bld) [#/Vol] 325 10*3/uL Normal 130-400 [facility] Comment on above: Performed By: #### U AR #### [facility] [address] [place] [address] RBC (Bld) [#/Vol] 5.55 10*6/uL Normal 4.70-6.10 [facility] Comment on above: Performed By: #### U AR #### [facility] [address] [place] [address] WBC (Bld) [#/Vol] 12.1 10*3/uL Critically high 4.8-10.8 [facility] Comment on above: Performed By: #### U AR #### [facility] [address] [place] [address] CBC with Auto Differentialon 09-23-2022 Basophils (Bld) [#/Vol] 0.0 10*3/uL 0.0 - 0.2 K /uL [facility] Basophils/100 WBC (Bld) 0.3 % B ON [facility] Eosinophils (Bld) [#/Vol] 0.0 10*3/uL 0.0 - 0.7 K/uL [facility] Eosinophils/100 WBC (Bld) 0 % [facility] Hematocrit (Bld) [Volume fraction] 50.9 % 42.0 - 52.0 % [facility] Hemoglobin (Bld) [Mass/Vol] 17.4 g/dL 14.0 - 1 8.0 g/dL [facility] Interpretation and review of laboratory results Abnormal [facility] Lymphocytes (Bld) [#/Vol] 0.8 10*3/uL Low 1.0 - 4.8 K/uL [facility] Lymphocytes/100 WBC (Bld) 6.6 % [facility] MCH (RBC) [Entitic mass] 31.3 pg 27.0 - 31.3 pg [facility] MCHC (RBC) [Mass/Vol] 34.1 % 33.0 - 37.0 % [facility] MCV (RBC) [Entitic vol] 91.7 fL 79.0 - 92.2 fL [facility] Monocytes (Bld) [#/Vol] 1.0 10*3/uL High 0.2 - 0.8 K /uL [facility] Monocytes/100 WBC (Bld) 8.3 % B ON [facility] Neutrophils Absolute 10.2 K/uL High 1.4 - 6.5 K/uL [facility] Neutrophils/100 WBC (Bld) 84.8 % [facility] Platelet distribution width (Bld) [Ratio] 13.5 % 11.5 - 14.5 % [facility] Platelets (Bld) [#/Vol] 325 10*3/uL 130 - 400 K /uL [facility] RBC (Bld) [#/Vol] 5.55 10*6/uL [facility] WBC (Bld) [#/Vol] 12.1 10*3/uL High 4.8 - 10.8 K/uL [facility] CKon 09-23-2022 CK [Catalytic activity/Vol] 164 U/L 0 - 190 U/L [facility] COVID-19on 09-23-2022 SARS-CoV-2 (COVID-19) RNA NESSA+probe Ql (Unsp spec) Not detected Normal Not Detect [facility] Comment on above: Result Comment: Jayna kirkpatrick NAAT: Negative results should be treated as presumptive and, if inconsistent with clinical signs and symptoms or necessary for patient management, should be tested with an alternative molecular assay. Negative results do not preclude SARS-CoV-2 infection and should not be used as the sole basis for patient management decisions. This test has been authorized by the FDA under an Emergency Use Authorization (EUA) for use by authorized laboratories. Fact sheet for Healthcare Providers: https://www.fda.gov/media/598815/download Fact sheet for Patients: https://www.fda.gov/media/633912/download METHODOLOGY: Isothermal Nucleic Acid Amplification Performed By: #### U AR #### [facility] [address] [place] [address] COVID-19, Rapidon 09-23-2022 SARS-CoV-2 (COVID-19) RNA NESSA+probe Ql (Unsp spec) Not detected Not Detected [facility] Comment on above: Rapid NAAT: Negative results should be treated as presumptive and, if inconsistent with clinical signs and symptoms or necessary for patient management, should be tested with an alternative molecular assay. Negative results do not preclude SARS-CoV-2 infection and should not be used as the sole basis for patient management decisions. This test has been authorized by the FDA under an Emergency Use Authorization (EUA) for use by authorized laboratories. Fact sheet for Healthcare Providers: https://www.fda.gov/media/422576/download Fact sheet for Patients: https://www.fda.gov/media/981134/download METHODOLOGY: Isothermal Nucleic Acid Amplification [facility] Comprehensive Metabolic Pane darlene 09-23-2022 Anion gap [Moles/Vol] 12 mmol/L Normal 9-15 [facility] Comment on above: Performed By: #### U AR #### [facility] [address] [place] [address] Albumin [Mass/Vol] 4.4 g/dL Normal 3.5-4.6 [facility] Comment on above: Performed By: #### U AR #### [facility] [address] [place] [address] ALP [Catalytic activity/Vol] 98 U/L Normal 35-104 [facility] Comment on above: Performed By: #### U AR #### [facility] [address] [place] [address] ALT [Catalytic activity/Vol] 40 U/L Normal 0-41 [facility] Comment on above: Performed By: #### U AR #### [facility] [address] [place] [address] AST [Catalytic activity/Vol] 34 U/L Normal 0-40 [facility] Comment on above: Performed By: #### U AR #### [facility] [address] [place] [address] Bilirubin [Mass/Vol] 0.3 mg/dL Normal 0.2-0.7 [facility] Comment on above: Performed By: #### U AR #### [facility] [address] [place] [address] Calcium [Mass/Vol] 9.1 mg/dL Normal 8.5-9.9 [facility] Comment on above: Performed By: #### U AR #### [facility] [address] [place] [address] Chloride [Moles/Vol] 98 mmol/L Normal 95-107 [facility] Comment on above: Performed By: #### U AR #### [facility] [address] [place] [address] CO2 [Moles/Vol] 25 mmol/L Normal 20-31 [facility] Comment on above: Performed By: #### U AR #### [facility] [address] [place] [address] Creatinine [Mass/Vol] 1.11 mg/dL Normal 0.70-1.20 [facility] Comment on above: Performed By: #### U AR #### [facility] [address] [place] [address] GFR >60.0 Normal >60 [facility] Comment on above: Result Comment: Ilana atric calculator link https://www.kidney.org/professionals/kdoqi/gfr_calculatorped Effective Apr 14, 2022 These results are not intended for use in patients <18 years of age. eGFR results are calculated without a race factor using the 2020 CKD-EPI equation. Careful clinical correlation is recommended, particularly when comparing to results calculated using previous equations. The CKD-EPI equation is less accurate in patients with extremes of muscle mass, extra-renal metabolism of creatinine, excessive creatinine ingestion, or following therapy that affects renal tubular secretion. Performed By: #### U AR #### [facility] [address] [place] [address] Globulin (S) [Mass/Vol] 3.0 g/dL Normal 2.3-3.5 M [facility] Comment on above: Performed By: #### U AR #### [facility] [address] [place] [address] Glucose [Mass/Vol] 170 mg/dL Critically high 70-99 [facility] Comment on above: Performed By: #### U AR #### [facility] [address] [place] [address] Potassium [Moles/Vol] 4.5 mmol/L Normal 3.4-4.9 [facility] Comment on above: Performed By: #### U AR #### [facility] [address] [place] [address] Protein [Mass/Vol] 7.4 g/dL Normal 6.3-8.0 [facility] Comment on above: Performed By: #### U AR #### [facility] [address] [place] [address] Sodium [Moles/Vol] 135 mmol/L Normal 135-144 [facility] Comment on above: Performed By: #### U AR #### [facility] [address] [place] [address] Urea nitrogen [Mass/Vol] 17 mg/dL Normal 6-20 [facility] Comment on above: Performed By: #### U AR #### [facility] [address] [place] [address] Albumin [Mass/Vol] 4.4 g/dL 3.5 - 4.6 g/dL [facility] ALP (Bld) [Catalytic activity/Vol] 98 U/L 35 - 104 U/L [facility] ALT [Catalytic activity/Vol] 40 U/L 0 - 41 U/L [facility] Anion gap [Moles/Vol] 12 mmol/L [facility] AST [Catalytic activity/Vol] 34 U/L 0 - 40 U/L [facility] Bilirubin [Mass/Vol] 0.3 mg/dL 0.2 - 0.7 mg/dL [facility] Calcium [Mass/Vol] 9.1 mg/dL 8.5 - 9.9 mg/dL B ON [facility] Chloride [Moles/Vol] 98 mmol/L [facility] CO2 [Moles/Vol] 25 mmol/L [facility] Creatinine [Mass/Vol] 1.11 mg/dL 0.70 - 1.20 mg /dL [facility] GFR/1.73 sq M.predicted MDRD (S/P/Bld) [Vol rate/Area] 60 - PINF [facility] Comment on above: Pediatric calculator link https://www.kidney.org/professionals/kdoqi/gfr_calculatorped Effective Apr 14, 2022 These results are not intended for use in patients <18 years of age. eGFR results are calculated without a race factor using the 2020 CKD-EPI equation. Careful clinical correlation is recommended, particularly when comparing to results calculated using previous equations. The CKD-EPI equation is less accurate in patients with extremes of muscle mass, extra-renal metabolism of creatinine, excessive creatinine ingestion, or following therapy that affects renal tubular secretion. Globulin (S) [Mass/Vol] 3 g/dL 2.3 - 3.5 g/ dL [facility] Glucose [Mass/Vol] 170 mg/dL High 70 - 99 mg/dL [facility] Potassium [Moles/Vol] 4.5 mmol/L [facility] Protein [Mass/Vol] 7.4 g/dL 6.3 - 8.0 g/dL [facility] Sodium [Moles/Vol] 135 mmol/L [facility] Urea nitrogen (BldV) [Mass/Vol] 17 mg/dL 6 - 20 mg/dL [facility] Creatine Kinaseon 09-23-2022 CK [Catalytic activity/Vol] 164 U/L Normal 0-190 [facility] Comment on above: Performed By: #### U AR #### [facility] [address] [place] [address] Ethanolon 09-23-2022 Ethanol Lvl <10 mg/dL [facility] Ethanol percent Not indicated G/dL [facility] Lipid Panelon 09-23-2022 Cholesterol [Mass/Vol] 177 mg/dL Normal 0-199 [facility] Comment on above: Result Comment: ATP III Cholesterol classification is Desirable. Performed By: #### L IPID #### [facility] [address] [place] [address] Cholesterol in HDL [Mass/Vol] 46 mg/dL Normal 40-59 [facility] Comment on above: Result Comment: ATP III HDL Cholesterol Classification is Desirable. Expected Values: Males: >55 = No Risk 35-55 = Moderate Risk <35 = High Risk Females: >65 = No Risk 45-65 = Moderate Risk <45 = High Risk NCEP Guidelines: Third Report November 2000 >59 = negative risk factor for CHD <40 = major risk factor for CHD Performed By: #### L IPID #### [facility] [address] [place] [address] Cholesterol in LDL [Mass/Vol] 90 mg/dL Normal 0-129 [facility] Comment on above: Result Comment: ATP III LDL Classification is Optimal. Performed By: #### L IPID #### [facility] [address] [place] [address] Triglyceride [Mass/Vol] 203 mg/dL Critically high 0-150 [facility] Comment on above: Result Comment: ATP III Triglycerides Classification is High. Performed By: #### L IPID #### [facility] [address] [place] [address] Cholesterol [Mass/Vol] 177 mg/dL 0 - 199 mg/dL [facility] Comment on above: ATP III Cholesterol classification is Desirable. Cholesterol in HDL [Mass/Vol] 46 mg/dL 40 - 5 9 mg/dL [facility] Comment on above: ATP III HDL Choleste rol Classification is Desirable. Expected Values: Males: >55 = No Risk 35-55 = Moderate Risk <35 = High Risk Females: >65 = No Risk 45-65 = Moderate Risk <45 = High Risk NCEP Guidelines: Third Report November 2000 >59 = negative risk factor for CHD <40 = major risk factor for CHD Cholesterol in LDL [Mass/Vol] 90 mg/dL 0 - 12 9 mg/dL [facility] Comment on above: ATP III LDL Classifi cation is Optimal. Triglyceride [Mass/Vol] 203 mg/dL High 0 - 150 mg/d L [facility] Comment on above: ATP III Triglyceride s Classification is High. No Panel Informationon 09-23 Interpretation and review of laboratory results Abnormal [facility] Interpretation and review of laboratory results Abnormal [facility] Salicylateon 09-23-2022 Salicylate <0.3 Low 15.0-30.0 [facility] Comment on above: Result Comment: Anti -pyretic: 3.0-10.0 mg/dL Anti-inflammatory: 15.0-30.0 mg/dL Toxic: >30.0 mg/dL Performed By: #### U AR #### [facility] [address] [place] [address] Salicylate, Serum <0.3 Low 15.0 - 30.0 mg/dL [facility] Comment on above: Anti-pyretic: 3.0-10 .0 mg/dL Anti-inflammatory: 15.0-30.0 mg/dL Toxic: >30.0 mg/dL TSHon 09-23-2022 TSH Qn 1.740 m[IU]/L [facility] TSH w/out Reflexon TSH w/out Reflex 1.740 uIU/mL Normal 0.440-3.86 [facility] Comment on above: Performed By: #### U AR #### [facility] [address] [address] UR Drugs of Abuse Panelon Drug Screen Comment see below Normal [facility] Comment on above: Result Comment: This method is a screening test to detect only these drug classes as part of a medical workup. Confirmatory testing by another method should be ordered if clinically indicated. Performed By: #### C OVRG #### [facility] [address] [place] [address] UR Amphetamines Screen Negative Normal Negative < [facility] Comment on above: Performed By: #### C OVRG #### [facility] [address] [place] [address] UR Barbiturates Screen Negative Normal Negative < [facility] Comment on above: Performed By: #### C OVRG #### [facility] [address] [place] [address] UR Benzo Screen Negative Normal Negative < [facility] Comment on above: Performed By: #### C OVRG #### [facility] [address] [address] UR Cannabinoids Screen Positive Abnormal Negative < [facility] Comment on above: Performed By: #### C OVRG #### [facility] [address] [place] [address] UR Cocaine Screen Negative Normal Negative < [facility] Comment on above: Performed By: #### C OVRG #### [facility] [address] [place] [address] UR Fentanyl Screen Negative Normal Negative < [facility] Comment on above: Performed By: #### C OVRG #### [facility] [address] [place] [address] UR Methadone Screen Negative Normal Negative < [facility] Comment on above: Performed By: #### C OVRG #### [facility] [address] [place] [address] UR Opiates Screen Negative Normal Negative < [facility] Comment on above: Performed By: #### C OVRG #### [facility] [address] [place] [address] UR Oxycodone Screen Negative Normal Negative < [facility] Comment on above: Performed By: #### C OVRG #### [facility] [address] [place] [address] UR PCP Screen Negative Normal Negative < [facility] Comment on above: Performed By: #### C OVRG #### [facility] [address] [place] [address] UR Propoxyphene Screen Negative Normal Negative < [facility] Comment on above: Performed By: #### C OVRG #### [facility] [address] [place] [address] Urinalysis with Reflex to Cu ltureon 09-23-2022 Bilirubin Urine Negative Negative [facility] Blood, Urine Negative Negative [facility] Clarity, UA Clear Clear [facility] Color, UA Yellow Straw/Yellow [facility] Glucose, Ur Negative Negative mg/dL [facility] Interpretation and review of laboratory results Abnormal [facility] Ketones Ql (U) TRACE Abnormal Negative mg/dL [facility] Leukocyte esterase Test strip Ql (U) Negative Negative [facility] Nitrite, Urine Negative Negative [facility] pH, UA 6.5 5.0 - 9.0 [facility] Protein, UA Negative Negative mg/dL [place] Specific [place], UA 1.011 1.005 - 1.030 [facility] Urine Reflex to Culture Not Indicated [facility] Urobilinogen, Urine 0.2 NINF [facility] Urinalysis, reflex to cultur jasmeet 09-23-2022 Bilirubin Ql (U) Negative Normal Negative [facility] Comment on above: Performed By: #### U AR #### [facility] [address] [place] [address] Clarity (U) Clear Normal [facility] Comment on above: Performed By: #### U AR #### [facility] [address] [place] [address] Color (U) Yellow Normal Straw/[place]ell [facility] Comment on above: Performed By: #### U AR #### [facility] [address] [place] [address] Glucose Ql (U) Negative Normal Negative [facility] Comment on above: Performed By: #### U AR #### [facility] [address] [place] [address] Hemoglobin Ql (U) Negative Normal Negative [facility] Comment on above: Performed By: #### U AR #### [facility] [address] [place] [address] Ketones Ql (U) TRACE Abnormal Negative [facility] Comment on above: Performed By: #### U AR #### [facility] [address] [place] [address] Leukocyte esterase Test stri p Ql (U) Negative Normal Negative [facility] Comment on above: Performed By: #### U AR #### [facility] [address] [place] [address] Nitrite Ql (U) Negative Normal Negative [facility] Comment on above: Performed By: #### U AR #### [facility] [address] [place] [address] pH (U) 6.5 [pH] Normal 5.0-9.0 [facility] Comment on above: Performed By: #### U AR #### [facility] [address] [place] [address] Protein Ql (U) Negative Normal Negative [facility] Comment on above: Performed By: #### U AR #### [facility] [address] [place] [address] Specific gravity (U) [Rel density] 1.011 Normal 1.005-1.03 [facility] Comment on above: Performed By: #### U AR #### [facility] [address] [place] [address] Urine Reflexed to Culture Not Indicated Normal [facility] Comment on above: Performed By: #### U AR #### [facility] [address] [place] [address] Urobilinogen Qn (U) 0.2 {Amisha'U}/dL Normal < 2.0 [facility] Comment on above: Performed By: #### U AR #### [facility] [address] [place] [address] Urine Drug Screenon 09-24-19 23 Amphetamine Screen, Urine Negative Negative < 1000 ng/mL [facility] Barbiturate Screen, Ur Negative Negative < 20 0 ng/mL [facility] i[facility]ico Benzodiazepine Screen, Urine Negative Negative < 200 ng/mL [facility] Cannabinoid Scrn, Ur Positive Abnormal Negative < 50 n g/mL [facility] Cocaine Metabolite Screen, Urine Negative Negative < 300 ng/mL [facility] Drug Screen Comment: see below [employer] Comment on above: This method is a scr eening test to detect only these drug classes as part of a medical workup. Confirmatory testing by another method should be ordered if clinically indicated. FENTANYL SCREEN, URINE Negative Negative < 50 ng/mL [facility] Interpretation and review of laboratory results Abnormal [facility] Methadone Screen, Urine Negative Negative <30 0 ng/mL [facility] Opiate Scrn, Ur Negative Negative < 300 ng/mL [facility] Oxycodone Urine Negative Negative <100 ng/mL [facility] PCP Screen, Urine Negative Negative < 25 ng/m L [facility] Propoxyphene Scrn, Ur Negative Negative <300 ng/mL [facility] Valproic Acid /Depakene Leve darlene 09-23-2022 Valproic Acid 54.8 ug/mL Normal 50.0-100.0 [facility] Comment on above: Performed By: #### A LCOH #### [facility] [address] [place] [address] Valproic Acid Level, Totalon 09-23-2022 Valproic Acid Lvl 54.8 ug/mL 50.0 - 100.0 ug/mL [facility] No Panel InformationOrdered By: Naeem Rodriges on 09-15-2022 Valproic Acid (Depakene) Level 87.9 ug/mL 50.0- 100.0 [facility] Comment on above: Last dose: - Valproic Acid (in house)on 0 09-15-2022 Valproic Acid (in house) 87.9 ug/mL Normal 50.0-100.0 [facility] Comment on above: Result Comment: Last dose: - PERFORMED BY: [facility] [address] [place] [address] PATHOLOGIST ALGOLOGIST TIMUR PHILLIPS M.D. Performed By: #### C K #### [facility] [address] [place] [id number] [facility] Valproic Acid (in house)on 0 09-11-2022 Valproic Acid (in house) 72.9 ug/mL Normal 50.0-100.0 [facility] Comment on above: Result Comment: Last dose: - PERFORMED BY: [address] [address] PATHOLOGIST ALGOLOGIST TIMUR PHILLIPS M.D. Performed By: #### C K #### [facility] [address] [place] [id number] [place] Acetaminophenon 09-09-2022 Acetaminophen [Mass/Vol] ug/mL Low 10.0-30.0 [facility] Comment on above: Result Comment: PERF ORMED BY: [place] [address] PATHOLOGIST ALGOLOGIST TIMUR PHILLIPS M.D. Performed By: #### E JOHN, CBC, CMP #### [facility] [address] [place] [id number] [facility] Acetaminophen [Mass/volume] in Serum or PlasmaOrdered By: Greg Alexander on 09-09-2022 Acetaminophen [Mass/Vol] ug/mL 10.0-30.0 [facility] Albumin [Mass/volume] in Bod y fluidOrdered By: Greg Alexander on 09-09-2022 Albumin (Body fld) [Mass/Vol] 3.6 g/dL 3.2-5. 5 [facility] Alkaline phosphatase [Enzyma tic activity/volume] in Serum or PlasmaOrdered By: Greg Alexander on 09-09-2022 ALP [Catalytic activity/Vol] 79 U/L 32-92 [facility] Amphetamine Screen Ql (U)Ord ered By: Greg Alexander on 09-09-2022 Amphetamines Ql (U) Negative Negative [facility] Aspartate aminotransferase [ Enzymatic activity/volume] in Serum or PlasmaOrdered By: Greg Alexander on 09-09-2022 AST [Catalytic activity/Vol] 39 U/L 10-42 [facility] Barbiturates [Presence] in U rineOrdered By: Greg Alexander on 09-09-2022 Barbiturates Ql (U) Negative Negative [facility] Basophils Auto (Bld) [#/Vol] Ordered By: Greg Alexander on 09-09-2022 Basophils (Bld) [#/Vol] 0.1 10*3/uL 0.0-0.2 [facility] Basophils/100 WBC Auto (Bld) Ordered By: Greg Alexander on 09-09-2022 Basophils/100 WBC (Bld) 0.6 % . F [facility] Benzodiazepines [Presence] i n UrineOrdered By: Greg Alexander on 09-09-2022 Benzodiazepines Ql (U) Negative Negative Fi [facility] Bilirubin Test strip Ql (U)O rdered By: Greg Alexander on 09-09-2022 Bilirubin Ql (U) Negative Negative [facility] Bilirubin.direct [Mass/volum e] in Serum or PlasmaOrdered By: Greg Alexander on 09-09-2022 Bilirubin.direct [Mass/Vol] 0.2 mg/dL 0.0-0.4 [facility] Bilirubin.total [Mass/volume ] in Serum or PlasmaOrdered By: Greg Alexander on 09-09-2022 Bilirubin [Mass/Vol] 0.6 mg/dL 0.3-1.2 [facility] Calcium [Mass/volume] in Ser um or PlasmaOrdered By: Greg Alexander on 09-09-2022 Calcium [Mass/Vol] 9.5 mg/dL 8.2-10.2 [facility] Cannabinoids [Presence] in U rine by Screen methodOrdered By: Greg Alexander on 09-09-2022 Cannabinoids Screen Ql (U) Negative Negative [facility] Comment on above: These are unconfirme d results and should not be used for legal purposes. Drug Cut-Off Concentration: AMPH 1000 ng/mL TOMÁS 200 ng/mL SWETHA 200 ng/mL COCM 300 ng/mL OP 300 ng/mL PCP 25 ng/mL THC 20 ng/mL Carbon dioxide, total [Moles /volume] in Serum or PlasmaOrdered By: Greg Alexander on 09-09-2022 CO2 [Moles/Vol] 20.3 mmol/L 22.0-30.0 [facility] Chloride [Moles/volume] in S kamari or PlasmaOrdered By: Greg Alexander on 09-09-2022 Chloride [Moles/Vol] 95 mmol/L 95-114 [facility] Cholesterol [Mass/volume] in Serum or PlasmaOrdered By: Naeem Rodriges on 02-28-2023 Cholesterol [Mass/Vol] 166 mg/dL 140-200 [facility] Comment on above: Chol less than 200 m g/dl low riskChol 201-239 mg/dl borderline riskChol 240 mg/dl and greater high risk Cholesterol in LDL Calc [Mas s/Vol]Ordered By: Naeem Rodriges on 09-09-2022 Cholesterol in LDL [Mass/Vol] 59 mg/dL 0-100 [facility] Comment on above: LDL ATP III CLASSIFI CATIONLDL less than 100 mg/dL OptimalLDL 100-129 mg/dL Near or above optimalLDL 130-159 mg/dL Borderline highLDL 160-189 mg/dL HighLDL greater than 189 mg/dL Very high Cholesterol in VLDL Calc [Ma ss/Vol]Ordered By: Naeem Rodriges on 09-09-2022 Cholesterol in VLDL [Mass/Vol] 33 mg/dL [facility] Color Auto (U)Ordered By: Gagan Alexander on 09-09-2022 Color (U) Yellow Yellow [facility] Complete Blood Count Auto Di ffon 09-09-2022 Basophils (Bld) [#/Vol] 0.1 10*3/uL Normal 0.0-0.2 [facility] Comment on above: Result Comment: PERF ORMED BY: [place] [address] PATHOLOGIST ALGOLOGIST TIMUR PHILLIPS M.D. Performed By: #### C K #### [facility] [address] [place] [address] [place] Basophils/100 WBC (Bld) 0.6 % Normal . F [facility] Comment on above: Performed By: #### C K #### [facility] [address] [place] [address] [place] Eosinophils (Bld) [#/Vol] 0.0 10*3/uL Normal 0.0-0.45 [facility] Comment on above: Performed By: #### C K #### [facility] [address] [place] [address] [place] Eosinophils/100 WBC (Bld) 0.4 % Normal . [facility] Comment on above: Performed By: #### C K #### [address] Erythrocyte distribution wid th (RBC) [Ratio] 13.7 % Normal 12.0-14.8 [facility] Comment on above: Performed By: #### C K #### [address] Hematocrit (Bld) [Volume fraction] 48.0 % Normal 38.8-50.0 [facility] Comment on above: Performed By: #### C K #### [address] Hemoglobin (Bld) [Mass/Vol] 15.8 g/dL Normal 13.0-17. 0 [facility] Comment on above: Performed By: #### C K #### [address] Lymphocytes (Bld) [#/Vol] 1.9 10*3/uL Normal 1.00-4.8 [facility] Comment on above: Performed By: #### C K #### [address] Lymphocytes/100 WBC (Bld) 20.2 % Normal . [facility] Comment on above: Performed By: #### C K #### [address] MCH (RBC) [Entitic mass] 30.2 pg Normal 27.5-35.2 [facility] Comment on above: Performed By: #### C K #### [address] MCV (RBC) [Entitic vol] 91.6 fL Normal 83.5-101 [facility] Comment on above: Performed By: #### C K #### [address] Mean Corpuscular HGB Conc 33.0 g/dL Normal 32.5-35.6 [facility] Comment on above: Performed By: #### C K #### [address] [place] [address] [place] Monocytes (Bld) [#/Vol] 1.0 10*3/uL High 0.0-0.8 [facility] Comment on above: Performed By: #### C K #### [facility] [address] Monocytes/100 WBC (Bld) 16.83 % Normal 0.00-20.00 [facility] Comment on above: Performed By: #### C K #### [facility] [address] Monocytes/100 WBC (Bld) 10.6 % Normal . [facility] Comment on above: Performed By: #### C K #### [address] Neutrophils (Bld) [#/Vol] 6.5 10*3/uL Normal 1.8-7.7 [facility] Comment on above: Performed By: #### C K #### [address] Neutrophils/100 WBC (Bld) 68.2 % Normal . [facility] Comment on above: Performed By: #### C K #### [address] NRBC% 0.1 /100{WBC} Normal 0-0.5 [facility] Comment on above: Performed By: #### C K #### [address] Platelet mean volume (Bld) [Entitic vol] 6.9 fL Normal 6.6-10.1 [facility] Comment on above: Performed By: #### C K #### [place] [address] [place] Platelets (Bld) [#/Vol] 291 10*3/uL Normal 150-450 [facility] Comment on above: Performed By: #### C K #### [place] [address] [place] RBC (Bld) [#/Vol] 5.24 10*6/uL Normal 3.90-5.60 [facility] Comment on above: Performed By: #### C K #### [address] WBC (Bld) [#/Vol] 9.6 10*3/uL Normal 4.1-10.5 [facility] Comment on above: Performed By: #### C K #### [address] Comprehensive Metabolic Pane darlene 09-09-2022 Albumin [Mass/Vol] 4.3 g/dL Normal 3.2-5.5 [facility] Comment on above: Performed By: #### C MP, CBC, ACET, TOSHIA, ETOH #### [address] Albumin/Globulin [Mass ratio] 1.3 {ratio} Normal [facility] Comment on above: Performed By: #### C MP, CBC, ACET, TOSHIA, ETOH #### [address] ALP [Catalytic activity/Vol] 94 U/L High 32-92 [facility] Comment on above: Performed By: #### C MP, CBC, ACET, TOSHIA, ETOH #### [address] ALT [Catalytic activity/Vol] 38 U/L Normal 10-60 [facility] Comment on above: Performed By: #### C MP, CBC, ACET, TOSHIA, ETOH #### [address] Anion gap [Moles/Vol] 20.5 mmol/L High 6.0-15.0 [facility] Comment on above: Performed By: #### C MP, CBC, ACET, TOSHIA, ETOH #### [address] AST [Catalytic activity/Vol] 49 U/L High 10-42 [facility] Comment on above: Performed By: #### C MP, CBC, ACET, TOSHIA, ETOH #### [facility] [address] Bilirubin [Mass/Vol] 0.5 mg/dL Normal 0.3-1.2 [facility] Comment on above: Performed By: #### C MP, CBC, ACET, TOSHIA, ETOH #### [facility] [address] Calcium [Mass/Vol] 9.5 mg/dL Normal 8.2-10.2 [facility] Comment on above: Performed By: #### C MP, CBC, ACET, TOSHIA, ETOH #### [facility] [address] [place] [address] Chloride [Moles/Vol] 95 mmol/L Normal 95-114 [facility] Comment on above: Performed By: #### C MP, CBC, ACET, TOSHIA, ETOH #### [facility] [address] [place] [address] CO2 [Moles/Vol] 20.3 mmol/L Low 22.0-30.0 [facility] Comment on above: Performed By: #### C MP, CBC, ACET, TOSHIA, ETOH #### [facility] [address] [place] [address] Creatinine [Mass/Vol] 1.11 mg/dL Normal 0.64-1.27 [facility] Comment on above: Performed By: #### C MP, CBC, ACET, TOSHIA, ETOH #### [facility] [address] [place] [address] [place] Creatinine Clr Calc Pharmacy 83.48 [facility] Comment on above: Result Comment: PERF ORMED BY: [place] [address] PATHOLOGIST ALGOLOGIST TIMUR PHILLIPS M.D. Performed By: #### C MP, CBC, ACET, TOSHIA, ETOH #### [address] Estimated GFR ( José > 60 Normal [facility] Comment on above: Result Comment: GFR estimated reference range: According to KDOQI guidelines, <60 ml/min/1.73m2 is sufficient to diagnose a patient with chronic kidney disease. Performed By: #### C MP, CBC, ACET, TOSHIA, ETOH #### [facility] [address] [place] [address] [place] Estimated GFR (Non- Am > 60 Normal [facility] Comment on above: Performed By: #### C MP, CBC, ACET, TOSHIA, ETOH #### [facility] [address] Globulin (S) [Mass/Vol] 3.2 g/dL Normal [facility] Comment on above: Performed By: #### C MP, CBC, ACET, TOSHIA, ETOH #### [facility] [address] Glucose [Mass/Vol] 84 mg/dL Normal 70-100 [facility] Comment on above: Result Comment: [facility] Glucose Reference Range is dependent on time and content of last meal. Glucose of more than 200 mg/dL in a nonstressed, ambulatory subject supports the diagnosis of Diabetes Mellitus. ADA recommended reference range Performed By: #### C MP, CBC, ACET, TOSHIA, ETOH #### [facility] [address] Potassium [Moles/Vol] 3.8 mmol/L Normal 3.5-5.1 [facility] Comment on above: Performed By: #### C MP, CBC, ACET, TOSHIA, ETOH #### [facility] [address] [place] [address] [place] Protein [Mass/Vol] 7.5 g/dL Normal 6.1-7.9 [facility] Comment on above: Performed By: #### C MP, CBC, ACET, TOSHIA, ETOH #### [facility] [address] [place] [address] [place] Sodium [Moles/Vol] 132 mmol/L Low 136-146 [facility] Comment on above: Performed By: #### C MP, CBC, ACET, TOSHIA, ETOH #### [facility] [address] Urea nitrogen [Mass/Vol] 9 mg/dL Normal 9-23 [facility] Comment on above: Performed By: #### C MP, CBC, ACET, TOSHIA, ETOH #### [facility] [address] [place] [address] [place] Creatine Kinaseon 09-09-2022 CK [Catalytic activity/Vol] 246 U/L Normal [facility] Comment on above: Result Comment: PERF ORMED BY: [address] [place] [address] PATHOLOGIST ALGOLOGIST TIMUR PHILLIPS M.D. Performed By: #### C K #### [address] Creatine kinase [Enzymatic a ctivity/volume] in Serum or PlasmaOrdered By: Greg Alexander on 09-09-2022 CK [Catalytic activity/Vol] 246 U/L [facility] Creatinine and Glomerular fi ltration rate.predicted panel (S/P/Bld)Ordered By: Greg Alexander on 09-09-2022 Creatinine [Mass/Vol] 1.11 mg/dL 0.64-1.27 [facility] Drug Screen,Urineon 09-09-19 23 Amphetamine Screen,Urine Negative Normal Negative [facility] Comment on above: Performed By: #### C MP, CBC, ACET, TOSHIA, ETOH #### [place] [address] [place] Barbiturate Screen,Urine Negative Normal Negative [facility] Comment on above: Performed By: #### C MP, CBC, ACET, TOSHIA, ETOH #### [place] [address] [place] Benzodiazepines Screen,Urine Negative Normal Negativ e [facility] Comment on above: Performed By: #### C MP, CBC, ACET, TOSHIA, ETOH #### [place] [address] [place] Cannabinoid Screen,Urine Negative Normal Negative [facility] Comment on above: Result Comment: Thes e are unconfirmed results and should not be used for legal purposes. Drug Cut-Off Concentration: AMPH 1000 ng/mL TOMÁS 200 ng/mL SWETHA 200 ng/mL COCM 300 ng/mL OP 300 ng/mL PCP 25 ng/mL THC 20 ng/mL PERFORMED BY: [place] [address] PATHOLOGIST ALGOLOGIST TIMUR PHILLIPS M.D. Performed By: #### C MP, CBC, ACET, TOSHIA, ETOH #### [address] Cocaine Screen,Urine Negative Normal Negative [facility] Comment on above: Performed By: #### C MP, CBC, ACET, TOSHIA, ETOH #### [address] Opiate Screen,Urine Negative Normal Negative [facility] Comment on above: Performed By: #### C MP, CBC, ACET, TOSHIA, ETOH #### [address] Phencyclidine Screen,Urine Negative Normal Negative [facility] Comment on above: Performed By: #### C MP, CBC, ACET, TOSHIA, ETOH #### [address] ECG 12 lead ECGon 09-09-2022 [address] [place] [address] Electrocardiograph Report Signed Patient: Edward Crowder MR#: [id number] : 1970 Acct:[id number] Age/Sex: 52 / M ADM Date: 09/09/22 Loc: Room: [address] [place] [address] Type: ADM IN Attending Dr: Thuy Rodriges MD Ordering Provider: Greg Alexander DO Date of Service: 09/09/22 ECG/ECG 12 lead ECG: Psychiatric Symptoms Copies to: Test Reason : Blood Pressure : / mmHG Vent. Rate : 091 BPM Atrial Rate : 091 BPM P-R Int : 154 ms QRS Dur : 092 ms QT Int : 374 ms P-R-T Axes : 036 089 038 degrees QTc Int : 460 ms Normal sinus rhythm Incomplete right bundle branch block Normal ECG When compared with ECG of 24-AUG-2022 22:51, Borderline criteria for Lateral infarct are no longer present Confirmed by ANDERSON LAW MD ([id number]) on 09/11/2022 5:38:40 PM Referred By: Electronically Signed By:ANDERSON LAW MD Transcribed By: MUS Signed By Anderson Law MD [id number] Normal [facility] Eosinophils Auto (Bld) [#/Vo l]Ordered By: Greg Alexander on 09-09-2022 Eosinophils (Bld) [#/Vol] 0.0 10*3/uL 0.0-0.45 [facility] Eosinophils/100 WBC Auto (Bl d)Ordered By: Greg Alexander on 09-09-2022 Eosinophils/100 WBC (Bld) 0.4 % . [facility] Erythrocyte distribution wid th Auto (RBC) [Ratio]Ordered By: Greg Alexander on 09-09-2022 Erythrocyte distribution wid th (RBC) [Ratio] 13.7 % 12.0-14.8 [facility] Estimated glomerular filtrat ion rate (GFR) non- AmericanOrdered By: Greg Alexander on 09-09-2022 GFR/1.73 sq M.predicted judy g non-blacks MDRD (S/P/Bld) [Vol rate/Area] > 60 mL/Min [facility] Ethanol [Mass/volume] in Ser um or PlasmaOrdered By: Greg Alexander on 09-09-2022 Ethanol [Mass/Vol] 54 mg/dL [facility] Ethanol [Mass/Vol] 0.054 % [facility] Ethyl Alcohol Profileon 08-14 Ethanol [Mass/Vol] 54 mg/dL Normal [facility] Comment on above: Performed By: #### C MP, CBC, ACET, TOSHIA, ETOH #### [facility] [address] [place] [address] [place] Percent Ethanol 0.054 % Normal [facility] Comment on above: Result Comment: PERF ORMED BY: [facility] [address] [place] [address] PATHOLOGIST ALGOLOGIST TIMUR PHILLIPS M.D. Performed By: #### C MP, CBC, ACET, TOSHIA, ETOH #### [facility] [address] Globulin Calc (S) [Mass/Vol] Ordered By: Greg Alexander on 09-09-2022 Globulin (S) [Mass/Vol] 2.8 g/dL F [facility] Glucose [Mass/volume] in Ser um or PlasmaOrdered By: Greg Alexander on 09-09-2022 Glucose [Mass/Vol] 84 mg/dL 70-100 [facility] Comment on above: ADA recommended refe rence rangeRandom Glucose Reference Range is dependent on time and content of last meal. Glucose of more than 200 mg/dL in a nonstressed, ambulatory subject supports the diagnosis of Diabetes Mellitus. Hematocrit Auto (Bld) [Volum e fraction]Ordered By: Greg Alexander on 09-09-2022 Hematocrit (Bld) [Volume fraction] 48.0 % 3 8.8-50.0 [facility] Hemoglobin [Mass/volume] in BloodOrdered By: Greg Alexander on 09-09-2022 Hemoglobin (Bld) [Mass/Vol] 15.8 g/dL 13.0-17. 0 [facility] Hepatic Panelon 09-09-2022 Albumin [Mass/Vol] 3.6 g/dL Normal 3.2-5.5 [facility] Comment on above: Performed By: #### C MP, CBC, ACET, TOSHIA, ETOH #### [facility] [address] Albumin/Globulin [Mass ratio] 1.3 {ratio} Normal [facility] Comment on above: Performed By: #### C MP, CBC, ACET, TOSHIA, ETOH #### [facility] [address] ALP [Catalytic activity/Vol] 79 U/L Normal 32-92 [facility] Comment on above: Result Comment: PERF ORMED BY: [facility] [address] [place] [address] PATHOLOGIST ALGOLOGIST TIMUR PHILLIPS M.D. Performed By: #### C MP, CBC, ACET, TOSHIA, ETOH #### [facility] [address] ALT [Catalytic activity/Vol] 33 U/L Normal 10-60 [facility] Comment on above: Performed By: #### C MP, CBC, ACET, TOSHIA, ETOH #### [facility] [address] AST [Catalytic activity/Vol] 39 U/L Normal 10-42 [facility] Comment on above: Performed By: #### C MP, CBC, ACET, TOSHIA, ETOH #### [address] Bilirubin [Mass/Vol] 0.6 mg/dL Normal 0.3-1.2 [facility] Comment on above: Performed By: #### C MP, CBC, ACET, TOSHIA, ETOH #### [address] Bilirubin,Indirect 0.4 mg/dL Normal [facility] Comment on above: Performed By: #### C MP, CBC, ACET, TOSHIA, ETOH #### [address] Bilirubin.indirect [Mass/Vol] 0.2 mg/dL Normal 0.0-0. 4 [facility] Comment on above: Performed By: #### C MP, CBC, ACET, TOSHIA, ETOH #### [address] Globulin (S) [Mass/Vol] 2.8 g/dL Normal [facility] Comment on above: Performed By: #### C MP, CBC, ACET, TOSHIA, ETOH #### [address] Protein [Mass/Vol] 6.4 g/dL Normal 6.1-7.9 [facility] Comment on above: Performed By: #### C MP, CBC, ACET, TOSHIA, ETOH #### [address] Ketones Auto test strip (U) [Mass/Vol]Ordered By: Greg Alexander on 09-09-2022 Ketones (U) [Mass/Vol] Negative Negative [facility] - Drug toxicology Ordered By: Greg Alexander on 09-09-2022 Opiates Ql (U) Negative Negative [facility] Leukocytes [#/volume] correc bia for nucleated erythrocytes in Blood by Automated counOrdered By: Greg Alexander on 09-09-2022 WBC corrected for nucl RBC A uto (Bld) [#/Vol] 9.6 10*3/uL 4.1-10.5 [facility] Lipid Panelon 09-09-2022 Cholesterol [Mass/Vol] 166 mg/dL Normal 140-200 [facility] Comment on above: Order Comment: SHANNAN Kay Comment USE FROM ER PLEASE Result Comment: Chol less than 200 mg/dl low risk Chol 201-239 mg/dl borderline risk Chol 240 mg/dl and greater high risk Performed By: #### C MP, CBC, ACET, TOSHIA, ETOH #### [facility] [address] [place] [address] [place] Cholesterol in HDL [Mass/Vol] 73 mg/dL High 29-71 [facility] Comment on above: Order Comment: SHANNAN Kay Comment USE FROM ER PLEASE Result Comment: HDL CHOL ATP-III CLASSIFICATION Cardiovascular Risk HDL > or equal to 60 mg/dL LOW HDL < 40 mg/dL HIGH Performed By: #### C MP, CBC, ACET, TOSHIA, ETOH #### [facility] [address] [place] [address] [place] Cholesterol.total/Cholestero l in HDL [Mass ratio] 2.3 {ratio} Normal <5.0 [facility] Comment on above: Order Comment: SHANNAN Kay Comment USE FROM ER PLEASE Performed By: #### C MP, CBC, ACET, TOSHIA, ETOH #### [facility] [address] [place] [address] [place] LDL Cholesterol,Calculated 59 mg/dL Normal 0-100 [facility] Comment on above: Order Comment: SHANNAN Kay Comment USE FROM ER PLEASE Result Comment: LDL ATP III CLASSIFICATION LDL less than 100 mg/dL Optimal LDL 100-129 mg/dL Near or above optimal LDL 130-159 mg/dL Borderline high LDL 160-189 mg/dL High LDL greater than 189 mg/dL Very high Performed By: #### C MP, CBC, ACET, TOSHIA, ETOH #### [facility] [address] Triglyceride w/Reflex 168 mg/dL High 35-149 [facility] Comment on above: Order Comment: SHANNAN Kay Comment USE FROM ER PLEASE Result Comment: TRIG ATP III CLASSIFICATION TRIG less than 150 mg/dL Normal TRIG 150-199 mg/dL Borderline high TRIG 200-500 mg/dL High TRIG greater than 500 mg/dL Very high Standard traceable to the Center for Disease Conrtrol and Prevention (CDC) test method. Performed By: #### C MP, CBC, ACET, TOSHIA, ETOH #### [facility] [address] VLDL CHOLESTEROL 33 mg/dL Normal [facility] Comment on above: Order Comment: SHANNAN Kay Comment USE FROM ER PLEASE Performed By: #### C MP, CBC, ACET, TOSHIA, ETOH #### [facility] [address] Lymphocytes Auto (Bld) [#/Vo l]Ordered By: Greg Alexander on 09-09-2022 Lymphocytes (Bld) [#/Vol] 1.9 10*3/uL 1.00-4.8 [facility] Lymphocytes/100 WBC Auto (Bl d)Ordered By: Greg Alexander on 09-09-2022 Lymphocytes/100 WBC (Bld) 20.2 % . [facility] MCH Auto (RBC) [Entitic mass ]Ordered By: Greg Alexander on 09-09-2022 MCH (RBC) [Entitic mass] 30.2 pg 27.5-35.2 [facility] MCHC Auto (RBC) [Mass/Vol]Or dered By: Greg Alexander on 09-09-2022 MCHC (RBC) [Mass/Vol] 33.0 g/dL 32.5-35.6 [facility] MCV Auto (RBC) [Entitic vol] Ordered By: Greg Alexander on 09-09-2022 MCV (RBC) [Entitic vol] 91.6 fL 83.5-101 F [facility] Monocyte distribution width [Entitic volume] in Blood by AutomatedOrdered By: Greg Alexander on 09-09-2022 Monocyte distribution width Auto (Bld) [Entitic vol] 16.83 % 0.00-20.00 [facility] Monocytes Auto (Bld) [#/Vol] Ordered By: Greg Alexander on 09-09-2022 Monocytes (Bld) [#/Vol] 1.0 10*3/uL 0.0-0.8 [facility] Monocytes/100 WBC Auto (Bld) Ordered By: Greg Alexander on 09-09-2022 Monocytes/100 WBC (Bld) 10.6 % . [facility] Neutrophils Auto (Bld) [#/Vo l]Ordered By: Greg Alexander on 09-09-2022 Neutrophils (Bld) [#/Vol] 6.5 10*3/uL 1.8-7.7 [facility] Neutrophils/100 WBC Auto (Bl d)Ordered By: Greg Alexander on 09-09-2022 Neutrophils/100 WBC (Bld) 68.2 % . [facility] Nitrite Test strip Ql (U)Ord ered By: Greg Alexander on 09-09-2022 Nitrite Ql (U) Negative Negative [facility] No Panel InformationOrdered By: Naeem Rodriges on 09-09-2022 25-Hydroxy Vitamin D Total 29.4 ng/mL 30-100 [facility] Comment on above: VITAMIN D STATUS 25( [place])VITAMIN D RANGE (ng/mL) Deficient <20 Insufficient 20 to <30Sufficient 30 to 100Reference: Madeline MF,[place], Chris MENDOZA, et al. Evaluation,treatment, and prevention of vitamin D deficiency; an Endocrine Society clinical practice guideline. JCEM. 2010; 96(7):1911-30. No Panel InformationOrdered By: Greg Alexander on 09-09-2022 Estimated GFR () > 60 mL/Min [facility] Comment on above: GFR estimated refere nce range: According to KDOQI guidelines, <60 ml/min/1.73m2 is sufficient to diagnose a patient with chronic kidney disease. Pharmacy Creatinine Clearance (Chem 83.48 [facility] Nucleated erythrocytes [Pres ence] in Blood by Automated countOrdered By: Greg Alexander on 09-09-2022 Nucleated RBC Auto Ql (Bld) 0.1 /100{WBC} 0-0.5 [facility] Phencyclidine Screen Ql (U)O rdered By: Greg Alexander on 09-09-2022 Phencyclidine Ql (U) Negative Negative [facility] Platelet mean volume Auto (B ld) [Entitic vol]Ordered By: Greg Alexander on 09-09-2022 Platelet mean volume (Bld) [Entitic vol] 6.9 fL 6.6-10.1 [facility] Platelets Auto (Bld) [#/Vol] Ordered By: Greg Alexander on 09-09-2022 Platelets (Bld) [#/Vol] 291 10*3/uL 150-450 [facility] Potassium [Moles/volume] in Serum or PlasmaOrdered By: Greg Alexander on 09-09-2022 Potassium [Moles/Vol] 3.8 mmol/L 3.5-5.1 [facility] Protein Auto test strip (U) [Mass/Vol]Ordered By: Greg Alexander on 09-09-2022 Protein (U) [Mass/Vol] Negative Negative [facility] Protein [Mass/volume] in Ser um or PlasmaOrdered By: Greg Alexander on 09-09-2022 Protein [Mass/Vol] 6.4 g/dL 6.1-7.9 [facility] RBC Auto (Bld) [#/Vol]Ordere d By: Greg Alexander on 09-09-2022 RBC (Bld) [#/Vol] 5.24 10*6/uL 3.90-5.60 [facility] Salicylateon 09-09-2022 Salicylate < 4.0 Low 15.0-30.0 [facility] Comment on above: Result Comment: Yumi ents treated with Sulfasalazine may generate a false high result for Salicylate. Patients treated with Sulfapyridine may generate a false low result for Salicylate. Performed By: #### S AL, ACET #### [facility] [address] Salicylates [Mass/volume] in Serum or PlasmaOrdered By: Greg Alexander on 09-09-2022 Salicylates [Mass/Vol] mg/dL 15.0-30.0 [facility] Comment on above: Patients treated wit h Sulfasalazine may generate a false high result for Salicylate.Patients treated with Sulfapyridine may generate a false low result for Salicylate. Serum or plasma alanine mason otransferase measurement without P-5'-P (enzymatic activiOrdered By: Greg Alexander on 09-09-2022 ALT No additional P-5'-P [Ca talytic activity/Vol] 33 U/L 1060 [facility] Serum or plasma albumin/glob ulin mass ratioOrdered By: Greg Alexander on 09-09-2022 Albumin/Globulin [Mass ratio] 1.3 {ratio} [facility] Serum or plasma anion gap de terminationOrdered By: Greg Alexander on 09-09-2022 Anion gap [Moles/Vol] 20.5 mmol/L 6.0-15.0 [facility] Serum or plasma high density lipoprotein (HDL) cholesterol measurementOrdered By: Naeem Rodriges on 09-09-2022 Cholesterol in HDL [Mass/Vol] 73 mg/dL [facility] Comment on above: HDL CHOL ATP-III CLA SSIFICATION Cardiovascular RiskHDL > or equal to 60 mg/dL LOWHDL < 40 mg/dL HIGH Serum or plasma non-glucuron idated bilirubin measurement (mass/volume)Ordered By: Greg Alexander on 09-09-2022 Bilirubin.indirect [Mass/Vol] 0.4 mg/dL [facility] Serum or plasma total choles terol/high density lipoprotein (HDL) cholesterol mass ratOrdered By: Naeem Rodriges on 09-09-2022 Cholesterol.total/Cholestero l in HDL [Mass ratio] 2.3 {ratio} <5.0 [facility] Sodium [Moles/volume] in Ser um or PlasmaOrdered By: Greg Alexander on 09-09-2022 Sodium [Moles/Vol] 132 mmol/L 136-146 [facility] Specific gravity Auto test s trip (U) [Rel density]Ordered By: Greg Alexander on 09-09-2022 Specific gravity (U) [Rel density] 1.004 1.001-1.030 [facility] TSH DL <= 0.005 mIU/L QnOrde red By: Naeem Rodriges on 09-09-2022 TSH Qn 1.23 m[IU]/L 0.45-5.33 [facility] Thyroid Stim Hormone w/Rflxo n 09-09-2022 Thyroid Stim Hormone w/Rflx 1.23 u[iU]/mL Normal 0.45-5.33 [facility] Comment on above: Order Comment: FASTI MERYL Y Comment USE FROM ER PLEASE Performed By: #### C MP, CBC, ACET, TOSHIA, ETOH #### [facility] [address] Triglyceride [Mass/volume] i n Serum or PlasmaOrdered By: Naeem Rodriges on 09-09-2022 Triglyceride [Mass/Vol] 168 mg/dL 35-149 [facility] Comment on above: TRIG ATP III CLASSIF ICATIONTRIG less than 150 mg/dL NormalTRIG 150-199 mg/dL Borderline highTRIG 200-500 mg/dL High TRIG greater than 500 mg/dL Very highStandard traceable to the Center for Disease Conrtrol and Prevention (CDC) test method. Urea nitrogen [Mass/volume] in Serum or PlasmaOrdered By: Greg Alexander on 09-09-2022 Urea nitrogen [Mass/Vol] 9 mg/dL 9-23 [facility] Urinalysison 09-09-2022 Appearance (U) Clear Normal Clear [facility] Comment on above: Order Comment: Name Collection Type:: Clean-Voided Midstream Performed By: #### C MP, CBC, ACET, TOSHIA, ETOH #### [facility] [address] Bilirubin,Urine Negative Normal Negative [facility] Comment on above: Order Comment: Name Collection Type:: Clean-Voided Midstream Performed By: #### C MP, CBC, ACET, TOSHIA, ETOH #### [facility] [address] [place] [address] Color (U) Yellow Normal Yellow [facility] Comment on above: Order Comment: Name Collection Type:: Clean-Voided Midstream Performed By: #### C MP, CBC, ACET, TOSHIA, ETOH #### [place] [address] [place] Glucose Ql (U) Normal Normal Normal [facility] Comment on above: Order Comment: Name Collection Type:: Clean-Voided Midstream Performed By: #### C MP, CBC, ACET, TOSHIA, ETOH #### [address] Ketones Ql (U) Negative Normal Negative [facility] Comment on above: Order Comment: Name Collection Type:: Clean-Voided Midstream Performed By: #### C MP, CBC, ACET, TOSHIA, ETOH #### [address] Leukocyte esterase Test stri p Ql (U) Negative Normal Negative [facility] Comment on above: Order Comment: Name Collection Type:: Clean-Voided Midstream Performed By: #### C MP, CBC, ACET, TOSHIA, ETOH #### [place] [address] [place] Nitrite,Urine Negative Normal Negative [facility] Comment on above: Order Comment: Name Collection Type:: Clean-Voided Midstream Performed By: #### C MP, CBC, ACET, TOSHIA, ETOH #### [place] [address] [place] Occult Blood,Urine Negative Normal Negative [facility] Comment on above: Order Comment: Name Collection Type:: Clean-Voided Midstream Result Comment: PERF ORMED BY: [place] [address] PATHOLOGIST ALGOLOGIST TIMUR PHILLIPS M.D. Performed By: #### C MP, CBC, ACET, TOSHIA, ETOH #### [facility] [address] pH (U) 8.0 [pH] Normal 5.0-9.0 [facility] Comment on above: Order Comment: Name Collection Type:: Clean-Voided Midstream Performed By: #### C MP, CBC, ACET, TOSHIA, ETOH #### [facility] [address] Protein,Urine Negative Normal Negative [facility] Comment on above: Order Comment: Name Collection Type:: Clean-Voided Midstream Performed By: #### C MP, CBC, ACET, TOSHIA, ETOH #### [address] Specificy [place],Urine 1.004 Normal 1.001-1.030 [facility] Comment on above: Order Comment: Name Collection Type:: Clean-Voided Midstream Performed By: #### C MP, CBC, ACET, TOSHIA, ETOH #### [address] Urobilinogen,Urine Normal Normal Normal [facility] Comment on above: Order Comment: Name Collection Type:: Clean-Voided Midstream Performed By: #### C MP, CBC, ACET, TOSHIA, ETOH #### [address] Urine clarity by refractomet ry automatedOrdered By: Greg Alexander on 09-09-2022 Clarity Refractometry automated (U) Clear Clear [facility] Urine cocaine detectionOrder ed By: Greg Alexander on 09-09-2022 Cocaine Ql (U) Negative Negative [facility] Urine glucose measurement by automated test strip (mass/volume)Ordered By: Greg Alexander on 09-09-2022 Glucose Auto test strip (U) [Mass/Vol] Normal mg/dL Normal [facility] Urine hemoglobin detection b y automated test stripOrdered By: Greg Alexander on 09-09-2022 Hemoglobin Auto test strip Ql (U) Negative Ne gative [facility] Urine leukocyte esterase det ection by automated test stripOrdered By: Greg Alexander on 09-09-2022 Leukocyte esterase Auto test strip Ql (U) Negative Negative [facility] Urobilinogen Auto test strip (U) [Mass/Vol]Ordered By: Greg Alexander on 09-09-2022 Urobilinogen (U) [Mass/Vol] Normal mg/dL Normal [facility] Valproic Acid (in house)on 0 09-09-2022 Valproic Acid (in house) < 10.0 Low 50.0-100.0 [facility] Comment on above: Result Comment: Last dose: - PERFORMED BY: [place] [address] PATHOLOGIST ALGOLOGIST TIMUR PHILLIPS M.D. Performed By: #### C K #### [facility] [address] [place] [address] Vitamin D 25 Hydroxy Totalon 09-09-2022 Vitamin D 25 Hydroxy Total 29.4 ng/mL Low 30-100 [facility] Comment on above: Order Comment: FASTI MERYL Y Comment USE FROM ER PLEASE Result Comment: JIM MIN D STATUS 25(OH)VITAMIN D RANGE (ng/mL) Deficient <20 Insufficient 20 to <30 Sufficient 30 to 100 Reference: Madeline MF,[place], Chris MENDOZA, et al. Evaluation,treatment, and prevention of vitamin D deficiency; an Endocrine Society clinical practice guideline. JCEM. 2010; 96(7):1911-30. PERFORMED BY: [place] [address] PATHOLOGIST ALGOLOGIST TIMUR PHILLIPS M.D. Performed By: #### C MP, CBC, ACET, TOSHIA, ETOH #### [facility] [address] [place] [id number] [place] WBC Auto (Bld) [#/Vol]Ordere d By: Greg Alexander on 09-09-2022 WBC (Bld) [#/Vol] 9.6 10*3/uL 4.1-10.5 [facility] pH Auto test strip (U)Ordere d By: Greg Alexander on 09-09-2022 pH (U) 8.0 [pH] 5.0-9.0 [facility] Amphetamine Screen Ql (U)Ord ered By: Anderson Corbett on 08-25-2022 Amphetamines Ql (U) Positive Negative [facility] Barbiturates [Presence] in U rineOrdered By: Anderson Corbett on 08-25-2022 Barbiturates Ql (U) Negative Negative [facility] Benzodiazepines [Presence] i n UrineOrdered By: Anderson Corbett on 08-25-2022 Benzodiazepines Ql (U) Negative Negative [facility] Bilirubin Test strip Ql (U)O rdered By: Anderson Corbett on 08-25-2022 Bilirubin Ql (U) Negative Negative [facility] Cannabinoids [Presence] in U rine by Screen methodOrdered By: Anderson Corbett on 08-25-2022 Cannabinoids Screen Ql (U) Positive Negative [facility] Comment on above: These are unconfirme d results and should not be used for legal purposes. Drug Cut-Off Concentration: AMPH 1000 ng/mL TOMÁS 200 ng/mL SWETHA 200 ng/mL COCM 300 ng/mL OP 300 ng/mL PCP 25 ng/mL THC 20 ng/mL Color Auto (U)Ordered By: Adelfo Corbett on 08-25-2022 Color (U) Yellow Yellow [facility] Complete Blood Count Auto Di ffon 08-25-2022 Basophils (Bld) [#/Vol] 0.1 10*3/uL Normal 0.0-0.2 [facility] Comment on above: Result Comment: PERF ORMED BY: [address] [place] [address] PATHOLOGIST ALGOLOGIST TIMUR PHILLIPS M.D. Performed By: #### C MP, CBC, ACET, TOSHIA, ETOH #### [facility] [address] [place] [address] [place] Basophils/100 WBC (Bld) 0.4 % Normal . [facility] Comment on above: Performed By: #### C MP, CBC, ACET, TOSHIA, ETOH #### [facility] [address] [place] [address] [place] Eosinophils (Bld) [#/Vol] 0.0 10*3/uL Normal 0.0-0.45 [facility] Comment on above: Performed By: #### C MP, CBC, ACET, TOSHIA, ETOH #### [address] Eosinophils/100 WBC (Bld) 0.1 % Normal . [facility] Comment on above: Performed By: #### C MP, CBC, ACET, TOSHIA, ETOH #### [address] Erythrocyte distribution wid th (RBC) [Ratio] 14.0 % Normal 12.0-14.8 [facility] Comment on above: Performed By: #### C MP, CBC, ACET, TOSHIA, ETOH #### [address] Hematocrit (Bld) [Volume fraction] 52.4 % High 38.8-50.0 [facility] Comment on above: Performed By: #### C MP, CBC, ACET, TOSHIA, ETOH #### [address] Hemoglobin (Bld) [Mass/Vol] 17.5 g/dL High 13.0-17. 0 [facility] Comment on above: Performed By: #### C MP, CBC, ACET, TOSHIA, ETOH #### [address] Lymphocytes (Bld) [#/Vol] 1.8 10*3/uL Normal 1.00-4.8 [facility] Comment on above: Performed By: #### C MP, CBC, ACET, TOSHIA, ETOH #### [address] Lymphocytes/100 WBC (Bld) 13.7 % Normal . [facility] Comment on above: Performed By: #### C MP, CBC, ACET, TOSHIA, ETOH #### [address] MCH (RBC) [Entitic mass] 30.4 pg Normal 27.5-35.2 [facility] Comment on above: Performed By: #### C MP, CBC, ACET, TOSHIA, ETOH #### [address] MCV (RBC) [Entitic vol] 91.1 fL Normal 83.5-101 [facility] Comment on above: Performed By: #### C MP, CBC, ACET, TOSHIA, ETOH #### [address] Mean Corpuscular HGB Conc 33.3 g/dL Normal 32.5-35.6 [facility] Comment on above: Performed By: #### C MP, CBC, ACET, TOSHIA, ETOH #### [address] Monocytes (Bld) [#/Vol] 1.3 10*3/uL High 0.0-0.8 [facility] Comment on above: Performed By: #### C MP, CBC, ACET, TOSHIA, ETOH #### [address] Monocytes/100 WBC (Bld) 14.42 % Normal 0.00-20.00 [facility] Comment on above: Performed By: #### C MP, CBC, ACET, TOSHIA, ETOH #### [address] Monocytes/100 WBC (Bld) 10.1 % Normal . [facility] Comment on above: Performed By: #### C MP, CBC, ACET, TOSHIA, ETOH #### [address] Neutrophils (Bld) [#/Vol] 9.9 10*3/uL High 1.8-7.7 [facility] Comment on above: Performed By: #### C MP, CBC, ACET, TOSHIA, ETOH #### [address] Neutrophils/100 WBC (Bld) 75.7 % Normal . [facility] Comment on above: Performed By: #### C MP, CBC, ACET, TOSHIA, ETOH #### [address] NRBC% 0.2 /100{WBC} Normal 0-0.5 [facility] Comment on above: Performed By: #### C MP, CBC, ACET, TOSHIA, ETOH #### [address] Platelet mean volume (Bld) [Entitic vol] 7.2 fL Normal 6.6-10.1 [facility] Comment on above: Performed By: #### C MP, CBC, ACET, TOSHIA, ETOH #### [address] Platelets (Bld) [#/Vol] 365 10*3/uL Normal 150-450 [facility] Comment on above: Performed By: #### C MP, CBC, ACET, TOSHIA, ETOH #### [address] RBC (Bld) [#/Vol] 5.75 10*6/uL High 3.90-5.60 [facility] Comment on above: Performed By: #### C MP, CBC, ACET, TOSHIA, ETOH #### [address] WBC (Bld) [#/Vol] 13.1 10*3/uL High 4.1-10.5 [facility] Comment on above: Performed By: #### C MP, CBC, ACET, TOSHIA, ETOH #### [address] Comprehensive Metabolic Pane darlene 08-25-2022 Albumin [Mass/Vol] 4.6 g/dL Normal 3.2-5.5 [facility] Comment on above: Performed By: #### C MP, CBC, ACET, TOSHIA, ETOH #### [address] Albumin/Globulin [Mass ratio] 1.4 {ratio} Normal [facility] Comment on above: Performed By: #### C MP, CBC, ACET, TOSHIA, ETOH #### [address] ALP [Catalytic activity/Vol] 93 U/L High 32-92 [facility] Comment on above: Performed By: #### C MP, CBC, ACET, TOSHIA, ETOH #### [address] ALT [Catalytic activity/Vol] 31 U/L Normal 10-60 [facility] Comment on above: Performed By: #### C MP, CBC, ACET, TOSHIA, ETOH #### [address] Anion gap [Moles/Vol] 16.4 mmol/L High 6.0-15.0 [facility] Comment on above: Performed By: #### C MP, CBC, ACET, TOSHIA, ETOH #### [address] AST [Catalytic activity/Vol] 30 U/L Normal 10-42 [facility] Comment on above: Performed By: #### C MP, CBC, ACET, TOSHIA, ETOH #### [address] Bilirubin [Mass/Vol] 0.6 mg/dL Normal 0.3-1.2 [facility] Comment on above: Performed By: #### C MP, CBC, ACET, TOSHIA, ETOH #### [address] Calcium [Mass/Vol] 9.4 mg/dL Normal 8.2-10.2 [facility] Comment on above: Performed By: #### C MP, CBC, ACET, TOSHIA, ETOH #### [address] Chloride [Moles/Vol] 99 mmol/L Normal 95-114 [facility] Comment on above: Performed By: #### C MP, CBC, ACET, TOSHIA, ETOH #### [address] CO2 [Moles/Vol] 21.7 mmol/L Low 22.0-30.0 [facility] Comment on above: Performed By: #### C MP, CBC, ACET, TOSHIA, ETOH #### [facility] [address] Creatinine [Mass/Vol] 1.27 mg/dL Normal 0.64-1.27 [facility] Comment on above: Performed By: #### C MP, CBC, ACET, TOSHIA, ETOH #### [address] Creatinine Clr Calc Pharmacy 74.75 [facility] Comment on above: Result Comment: PERF ORMED BY: [place] [address] PATHOLOGIST ALGOLOGIST TIMUR PHILLIPS M.D. Performed By: #### C MP, CBC, ACET, TOSHIA, ETOH #### [address] Estimated GFR ( José > 60 [facility] Comment on above: Result Comment: GFR estimated reference range: According to KDOQI guidelines, <60 ml/min/1.73m2 is sufficient to diagnose a patient with chronic kidney disease. Performed By: #### C MP, CBC, ACET, TOSHIA, ETOH #### [address] Estimated GFR (Non- Am 60 [facility] Comment on above: Performed By: #### C MP, CBC, ACET, TOSHIA, ETOH #### [address] Globulin (S) [Mass/Vol] 3.4 g/dL Normal [facility] Comment on above: Performed By: #### C MP, CBC, ACET, TOSHIA, ETOH #### [address] Glucose [Mass/Vol] 151 mg/dL High 70-100 [facility] Comment on above: Result Comment: [place] Glucose Reference Range is dependent on time and content of last meal. Glucose of more than 200 mg/dL in a nonstressed, ambulatory subject supports the diagnosis of Diabetes Mellitus. ADA recommended reference range Performed By: #### C MP, CBC, ACET, TOSHIA, ETOH #### [place] [address] Potassium [Moles/Vol] 4.1 mmol/L Normal 3.5-5.1 [facility] Comment on above: Performed By: #### C MP, CBC, ACET, TOSHIA, ETOH #### [address] Protein [Mass/Vol] 8.0 g/dL High 6.1-7.9 [facility] Comment on above: Performed By: #### C MP, CBC, ACET, TOSHIA, ETOH #### [address] Sodium [Moles/Vol] 133 mmol/L Low 136-146 [facility] Comment on above: Performed By: #### C MP, CBC, ACET, TOSHIA, ETOH #### [address] Urea nitrogen [Mass/Vol] 22 mg/dL Normal 9-23 [facility] Comment on above: Performed By: #### C MP, CBC, ACET, TOSHIA, ETOH #### [address] Drug Screen,Urineon 08-25-19 23 Amphetamine Screen,Urine Positive High Negative [facility] Comment on above: Performed By: #### C MP, CBC, ACET, TOSHIA, ETOH #### [address] Barbiturate Screen,Urine Negative Normal Negative [facility] Comment on above: Performed By: #### C MP, CBC, ACET, TOSHIA, ETOH #### [place] [address] [place] Benzodiazepines Screen,Urine Negative Normal Negativ e [facility] Comment on above: Performed By: #### C MP, CBC, ACET, TOSHIA, ETOH #### [address] Cannabinoid Screen,Urine Positive High Negative [facility] Comment on above: Result Comment: Thes e are unconfirmed results and should not be used for legal purposes. Drug Cut-Off Concentration: AMPH 1000 ng/mL TOMÁS 200 ng/mL SWETHA 200 ng/mL COCM 300 ng/mL OP 300 ng/mL PCP 25 ng/mL THC 20 ng/mL PERFORMED BY: [place] [address] PATHOLOGIST ALGOLOGIST TIMUR PHILLIPS M.D. Performed By: #### C MP, CBC, ACET, TOSHIA, ETOH #### [address] Cocaine Screen,Urine Negative Normal Negative [facility] Comment on above: Performed By: #### C MP, CBC, ACET, TOSHIA, ETOH #### [address] Opiate Screen,Urine Negative Normal Negative [facility] Comment on above: Performed By: #### C MP, CBC, ACET, TOSHIA, ETOH #### [address] Phencyclidine Screen,Urine Negative Normal Negative [facility] Comment on above: Performed By: #### C MP, CBC, ACET, TOSHIA, ETOH #### [address] ECG 12 lead ECGon 08-25-2022 [address] [facility] [place] [address] Electrocardiograph Report Signed Patient: Edward Crowder MR#: [id number] : 1970 Acct:[id number] Age/Sex: 52 / M ADM Date: 08/24/22 Loc: ER Room: Type: [facility] ER Attending Dr: Ordering Provider: Anderson Corbett Jr, MD Date of Service: 08/24/2207/04/2257 ECG/ECG 12 lead ECG: EKG Copies to: Test Reason : Blood Pressure : 188/117 mmHG Vent. Rate : 134 BPM Atrial Rate : 134 BPM P-R Int : 138 ms QRS Dur : 084 ms QT Int : 286 ms P-R-T Axes : 046 072 048 degrees QTc Int : 427 ms Sinus tachycardia Otherwise normal ECG When compared with ECG of 17-JUL-2022 23:43, Vent. rate has increased BY 56 BPM Confirmed by ANDERSON CORBETT MD ([id number]) on 08/25/2022 4:09:13 AM Referred By: Electronically Signed By:ANDERSON CORBETT MD Transcribed By: MUS Signed By Anderson Corbett Jr, [place] 0409 Normal [facility] Ethyl Alcohol Profileon 08-13 Ethanol [Mass/Vol] mg/dL Normal [facility] Comment on above: Performed By: #### C MP, CBC, ACET, TOSHIA, ETOH #### [facility] [address] Percent Ethanol Not performed Normal [facility] Comment on above: Result Comment: PERF ORMED BY: [place] [address] PATHOLOGIST ALGOLOGIST TIMUR PHILLIPS M.D. Performed By: #### C MP, CBC, ACET, TOSHIA, ETOH #### [facility] [address] Ketones Auto test strip (U) [Mass/Vol]Ordered By: Anderson Corbett on 08-25-2022 Ketones (U) [Mass/Vol] Trace Negative [facility] - Drug toxicology Ordered By: Anderson Corbett on 08-25-2022 Opiates Ql (U) Negative Negative [facility] Nitrite Test strip Ql (U)Ord ered By: Anderson Corbett on 08-25-2022 Nitrite Ql (U) Negative Negative [facility] Phencyclidine Screen Ql (U)O rdered By: Anderson Corbett on 08-25-2022 Phencyclidine Ql (U) Negative Negative [facility] Protein Auto test strip (U) [Mass/Vol]Ordered By: Anderson Corbett on 08-25-2022 Protein (U) [Mass/Vol] Negative Negative [facility] Specific gravity Auto test s trip (U) [Rel density]Ordered By: Anderson Corbett on 08-25-2022 Specific gravity (U) [Rel density] 1.016 1.001-1.030 [facility] Urinalysison 08-25-2022 Appearance (U) Clear Normal Clear [facility] Comment on above: Order Comment: Name Collection Type:: Clean-Voided Midstream Performed By: #### C MP, CBC, ACET, TOSHIA, ETOH #### [facility] [address] [place] [address] [place] Bilirubin,Urine Negative Normal Negative [facility] Comment on above: Order Comment: Name Collection Type:: Clean-Voided Midstream Performed By: #### C MP, CBC, ACET, TOSHIA, ETOH #### [facility] [address] [place] [address] [place] Color (U) Yellow Normal Yellow [facility] Comment on above: Order Comment: Name Collection Type:: Clean-Voided Midstream Performed By: #### C MP, CBC, ACET, TOSHIA, ETOH #### [facility] [address] [place] [address] [place] Glucose Ql (U) Normal Normal Normal [facility] Comment on above: Order Comment: Name Collection Type:: Clean-Voided Midstream Performed By: #### C MP, CBC, ACET, TOSHIA, ETOH #### [place] [address] [place] Ketones Ql (U) Trace High Negative [facility] Comment on above: Order Comment: Name Collection Type:: Clean-Voided Midstream Performed By: #### C MP, CBC, ACET, TOSHIA, ETOH #### [address] Leukocyte esterase Test stri p Ql (U) Negative Normal Negative [facility] Comment on above: Order Comment: Name Collection Type:: Clean-Voided Midstream Performed By: #### C MP, CBC, ACET, TOSHIA, ETOH #### [facility] [address] [place] [address] [place] Nitrite,Urine Negative Normal Negative [facility] Comment on above: Order Comment: Name Collection Type:: Clean-Voided Midstream Performed By: #### C MP, CBC, ACET, TOSHIA, ETOH #### [place] [address] [place] Occult Blood,Urine Negative Normal Negative [facility] Comment on above: Order Comment: Name Collection Type:: Clean-Voided Midstream Result Comment: PERF ORMED BY: [place] [address] PATHOLOGIST ALGOLOGIST TIMUR PHILLIPS M.D. Performed By: #### C MP, CBC, ACET, TOSHIA, ETOH #### [address] pH (U) 6.5 [pH] Normal 5.0-9.0 [facility] Comment on above: Order Comment: Name Collection Type:: Clean-Voided Midstream Performed By: #### C MP, CBC, ACET, TOSHIA, ETOH #### [address] Protein,Urine Negative Normal Negative [facility] Comment on above: Order Comment: Name Collection Type:: Clean-Voided Midstream Performed By: #### C MP, CBC, ACET, TOSHIA, ETOH #### [address] Specificy [place],Urine 1.016 Normal 1.001-1.030 [facility] Comment on above: Order Comment: Name Collection Type:: Clean-Voided Midstream Performed By: #### C MP, CBC, ACET, TOSHIA, ETOH #### [address] Urobilinogen,Urine Normal Normal Normal [facility] Comment on above: Order Comment: Name Collection Type:: Clean-Voided Midstream Performed By: #### C MP, CBC, ACET, TOSHIA, ETOH #### [address] Urine clarity by refractomet ry automatedOrdered By: Anderson Corbett on 08-25-2022 Clarity Refractometry automated (U) Clear Clear [facility] Urine cocaine detectionOrder ed By: Anderson Corbett on 08-25-2022 Cocaine Ql (U) Negative Negative [facility] Urine glucose measurement by automated test strip (mass/volume)Ordered By: Anderson Corbett on 08-25-2022 Glucose Auto test strip (U) [Mass/Vol] Normal mg/dL Normal [facility] Urine hemoglobin detection b y automated test stripOrdered By: Anderson Corbett on 08-25-2022 Hemoglobin Auto test strip Ql (U) Negative Ne gative [facility] Urine leukocyte esterase det ection by automated test stripOrdered By: Anderson Corbett on 08-25-2022 Leukocyte esterase Auto test strip Ql (U) Negative Negative [facility] Urobilinogen Auto test strip (U) [Mass/Vol]Ordered By: Anderson Corbett on 08-25-2022 Urobilinogen (U) [Mass/Vol] Normal mg/dL Normal [facility] pH Auto test strip (U)Ordere d By: Anderson Corbett on 08-25-2022 pH (U) 6.5 [pH] 5.0-9.0 [facility] Albumin [Mass/volume] in Bod y fluidOrdered By: Anderson Corbett on 08-24-2022 Albumin (Body fld) [Mass/Vol] 4.6 g/dL 3.2-5. 5 [facility] Alkaline phosphatase [Enzyma tic activity/volume] in Serum or PlasmaOrdered By: Anderson Corbett on 08-24-2022 ALP [Catalytic activity/Vol] 93 U/L 32-92 [facility] Aspartate aminotransferase [ Enzymatic activity/volume] in Serum or PlasmaOrdered By: Anderson Corbett on 08-24-2022 AST [Catalytic activity/Vol] 30 U/L 10-42 [facility] Basophils Auto (Bld) [#/Vol] Ordered By: Anderson Corbett on 08-24-2022 Basophils (Bld) [#/Vol] 0.1 10*3/uL 0.0-0.2 [facility] Basophils/100 WBC Auto (Bld) Ordered By: Anderson Corbett on 08-24-2022 Basophils/100 WBC (Bld) 0.4 % . [facility] Bilirubin.total [Mass/volume ] in Serum or PlasmaOrdered By: Anderson Corbett on 08-24-2022 Bilirubin [Mass/Vol] 0.6 mg/dL 0.3-1.2 [facility] Calcium [Mass/volume] in Ser um or PlasmaOrdered By: Anderson Corbett on 08-24-2022 Calcium [Mass/Vol] 9.4 mg/dL 8.2-10.2 [facility] Carbon dioxide, total [Moles /volume] in Serum or PlasmaOrdered By: Anderson Corbett on 08-24-2022 CO2 [Moles/Vol] 21.7 mmol/L 22.0-30.0 [facility] Chloride [Moles/volume] in S kamari or PlasmaOrdered By: Anderson Corbett on 08-24-2022 Chloride [Moles/Vol] 99 mmol/L 95-114 [facility] Creatinine and Glomerular fi ltration rate.predicted panel (S/P/Bld)Ordered By: Anderson Corbett on 08-24-2022 Creatinine [Mass/Vol] 1.27 mg/dL 0.64-1.27 [facility] Eosinophils Auto (Bld) [#/Vo l]Ordered By: Anderson Corbett on 08-24-2022 Eosinophils (Bld) [#/Vol] 0.0 10*3/uL 0.0-0.45 [facility] Eosinophils/100 WBC Auto (Bl d)Ordered By: Anderson Corbett on 08-24-2022 Eosinophils/100 WBC (Bld) 0.1 % . [facility] Erythrocyte distribution wid th Auto (RBC) [Ratio]Ordered By: Anderson Corbett on 08-24-2022 Erythrocyte distribution wid th (RBC) [Ratio] 14.0 % 12.0-14.8 [facility] Estimated glomerular filtrat ion rate (GFR) non- AmericanOrdered By: Anderson Corbett on 08-24-2022 GFR/1.73 sq M.predicted judy g non-blacks MDRD (S/P/Bld) [Vol rate/Area] 60 mL/Min [facility] Ethanol [Mass/volume] in Ser um or PlasmaOrdered By: Anderson Corbett on 08-24-2022 Ethanol [Mass/Vol] mg/dL [facility] Ethanol [Mass/Vol] TNP [facility] Comment on above: Test not performed Globulin Calc (S) [Mass/Vol] Ordered By: Andersno Corbett on 08-24-2022 Globulin (S) [Mass/Vol] 3.4 g/dL [facility] Glucose [Mass/volume] in Ser um or PlasmaOrdered By: Anderson Corbett on 08-24-2022 Glucose [Mass/Vol] 151 mg/dL 70-100 [facility] Comment on above: ADA recommended refe rence rangeRandom Glucose Reference Range is dependent on time and content of last meal. Glucose of more than 200 mg/dL in a nonstressed, ambulatory subject supports the diagnosis of Diabetes Mellitus. Hematocrit Auto (Bld) [Volum e fraction]Ordered By: Anderson Corbett on 08-24-2022 Hematocrit (Bld) [Volume fraction] 52.4 % 3 8.8-50.0 [facility] Hemoglobin [Mass/volume] in BloodOrdered By: Anderson Corbett on 08-24-2022 Hemoglobin (Bld) [Mass/Vol] 17.5 g/dL 13.0-17. 0 [facility] Leukocytes [#/volume] correc bia for nucleated erythrocytes in Blood by Automated counOrdered By: Anderson Corbett on 08-24-2022 WBC corrected for nucl RBC A uto (Bld) [#/Vol] 13.1 10*3/uL 4.1-10.5 [facility] Lymphocytes Auto (Bld) [#/Vo l]Ordered By: Anderson Corbett on 08-24-2022 Lymphocytes (Bld) [#/Vol] 1.8 10*3/uL 1.00-4.8 [facility] Lymphocytes/100 WBC Auto (Bl d)Ordered By: Anderson Corbett on 08-24-2022 Lymphocytes/100 WBC (Bld) 13.7 % . [facility] MCH Auto (RBC) [Entitic mass ]Ordered By: Anderson Corbett on 08-24-2022 MCH (RBC) [Entitic mass] 30.4 pg 27.5-35.2 [facility] MCHC Auto (RBC) [Mass/Vol]Or dered By: Anderson Corbett on 08-24-2022 MCHC (RBC) [Mass/Vol] 33.3 g/dL 32.5-35.6 [facility] MCV Auto (RBC) [Entitic vol] Ordered By: Anderson Corbett on 08-24-2022 MCV (RBC) [Entitic vol] 91.1 fL 83.5-101 [facility] Monocyte distribution width [Entitic volume] in Blood by AutomatedOrdered By: Anderson Corbett on 08-24-2022 Monocyte distribution width Auto (Bld) [Entitic vol] 14.42 % 0.00-20.00 [facility] Monocytes Auto (Bld) [#/Vol] Ordered By: Anderson Corbett on 08-24-2022 Monocytes (Bld) [#/Vol] 1.3 10*3/uL 0.0-0.8 [facility] Monocytes/100 WBC Auto (Bld) Ordered By: Anderson Corbett on 08-24-2022 Monocytes/100 WBC (Bld) 10.1 % . [facility] Neutrophils Auto (Bld) [#/Vo l]Ordered By: Anderson Corbett on 08-24-2022 Neutrophils (Bld) [#/Vol] 9.9 10*3/uL 1.8-7.7 [facility] Neutrophils/100 WBC Auto (Bl d)Ordered By: Anderson Corbett on 08-24-2022 Neutrophils/100 WBC (Bld) 75.7 % . [facility] No Panel InformationOrdered By: Anderson Corbett on 08-24-2022 Estimated GFR () > 60 mL/Min [facility] Comment on above: GFR estimated refere nce range: According to KDOQI guidelines, <60 ml/min/1.73m2 is sufficient to diagnose a patient with chronic kidney disease. Pharmacy Creatinine Clearance (Chem 74.75 [facility] Nucleated erythrocytes [Pres ence] in Blood by Automated countOrdered By: Anderson Corbett on 08-24-2022 Nucleated RBC Auto Ql (Bld) 0.2 /100{WBC} 0-0.5 [facility] Platelet mean volume Auto (B ld) [Entitic vol]Ordered By: Anderson Corbett on 08-24-2022 Platelet mean volume (Bld) [Entitic vol] 7.2 fL 6.6-10.1 [facility] Platelets Auto (Bld) [#/Vol] Ordered By: Anderson Corbett on 08-24-2022 Platelets (Bld) [#/Vol] 365 10*3/uL 150-450 [facility] Potassium [Moles/volume] in Serum or PlasmaOrdered By: Anderson Corbett on 08-24-2022 Potassium [Moles/Vol] 4.1 mmol/L 3.5-5.1 [facility] Protein [Mass/volume] in Ser um or PlasmaOrdered By: Anderson Corbett on 08-24-2022 Protein [Mass/Vol] 8.0 g/dL 6.1-7.9 [facility] RBC Auto (Bld) [#/Vol]Ordere d By: Anderson Corbett on 08-24-2022 RBC (Bld) [#/Vol] 5.75 10*6/uL 3.90-5.60 [facility] Serum or plasma alanine mason otransferase measurement without P-5'-P (enzymatic activiOrdered By: Anderson Corbett on 08-24-2022 ALT No additional P-5'-P [Ca talytic activity/Vol] 31 U/L 10-60 [facility] Serum or plasma albumin/glob ulin mass ratioOrdered By: Anderson Corbett on 08-24-2022 Albumin/Globulin [Mass ratio] 1.4 {ratio} [facility] Serum or plasma anion gap de terminationOrdered By: Anderson Corbett on 08-24-2022 Anion gap [Moles/Vol] 16.4 mmol/L 6.0-15.0 [facility] Sodium [Moles/volume] in Ser um or PlasmaOrdered By: Anderson Corbett on 08-24-2022 Sodium [Moles/Vol] 133 mmol/L 136-146 [facility] Urea nitrogen [Mass/volume] in Serum or PlasmaOrdered By: Anderson Corbett on 08-24-2022 Urea nitrogen [Mass/Vol] 22 mg/dL 9-23 [facility] WBC Auto (Bld) [#/Vol]Ordere d By: Anderson Corbett on 08-24-2022 WBC (Bld) [#/Vol] 13.1 10*3/uL 4.1-10.5 [facility] Discharge [id number] Discharge Profile2 Discharge Orders: Anticipated Discharge Date: Anticipated Discharge [id number] DNAR: Code Status at Discharge: Full Code Psychiatric Continuing Care Plan: Tobacco Use: Screening: Was the patient screened within the first 3 days of admission for tobacco use (cigarettes, smokeless tobacco, pipe, and cigar) within the previous 30 days: yes; tobacco user Tobacco Use: Counseling: Did the patient receive practical counseling to quit during the first 3 days following admission: yes Tobacco Use: Treatment: Did the patient receive FDA approved cessation medications (if not contraindicated) during the first 3 days following admission: yes This patient is being discharged on multiple antipsychotic medications: no: Take all medications until outpatient provider advises otherwise. Advance Directives: Advance Directive (Medical)no Advance Directive Information Givenyes Reason No Advance Directive (Medical)did not wish to discuss adv directive/surrogate Advance Directive (Mental Health)no Advance Directive Information Given (Mental Health)yes; provided in admission packet Reason No Advance Directive (Mental Health)did not wish to discuss adv directive/surrogate Transition Record: Transition Record Discussed: All 11 elements of this patients transition record were discussed with the patient/caregiver and the Next Level of Care Provider Transition Record Given: A copy of the transition record was given to the patient and was transmitted to the Next Level of Care Provider Behavioral Health Labs: Toxicology + Therapeutic Drugs: 18-Aug-2022 12:00, Valproic Acid Level, Serum Valproic Acid Level, Serum: 76, [50 - 100 ug/mL] Provider FINAL REVIEW of Orders: Final Review: Final Review of Medication Reconciliation and Orders Completedby JO Reviewing Tigre Lopez APRN-HEIDY at 18-Aug-2022 13:21:17 Appointments: Follow-Up Appointment 01: Physician/Kam/[facility] Reason for ReferralCase management Scheduled Date/[id number] 14:[id number] [place] [address] Phone [phone] CommentsPlease bring Insurance Card, Photo ID and Discharge Paperwork. Follow-Up Appointment 02: Physician/Dept/[facility] Reason for ReferralFollow up appt Scheduled Date/[id number] 15:[id number] [place] [address] Phone [phone] CommentsPlease bring Insurance Card, Photo ID and Discharge Paperwork. Follow-Up Appointment 03: Physician/Dept/[facility] Reason for ReferralFollow up appt Scheduled Date/[id number] 09:[id number] [place] [address] Phone [phone] CommentsPlease bring Insurance Card, Photo ID and Discharge Paperwork. Follow-Up Appointment 04: Physician/[facility] Cabral Reason for ReferralFollow up appt Scheduled Date/[id number] 15:00 [id number] Bernardo [place], [place] Phone [phone] CommentsPlease bring Insurance Card, Photo ID and Discharge Paperwork. Electronic Signatures: Brayden Lopez (OUTSIDE SALES ACCOUNT EXECUTIVE-FLIGHT TECHNICIAN) (Signed 18-Aug-2022 13:21) Authored: Discharge Orders, Psychiatric Continuing Care Plan, Provider FINAL REVIEW of Orders Ashish Bloom (UNIT SECT) (Signed 18-Aug-2022 13:20) Authored: Discharge Orders, Appointments, Gold Form - Seat Joiner Chainstitch Summary Last Updated: 18-Aug-2022 13:21 by Brayden Lopez (OUTSIDE SALES ACCOUNT EXECUTIVE-FLIGHT TECHNICIAN) [facility] Order Reconciliationon 08-18 Order Reconciliation Page 1 Discharge Reconciliation Document Reconciliation Type: Discharge requested on behalf of Brayden Lopez (Advanced Practice Nurse-Admit) done by Brayden Lopez (OUTSIDE SALES ACCOUNT EXECUTIVE-FLIGHT TECHNICIAN) Discharge - Reconciliation: 18-Aug-2022 13:14 by: Brayden Lopez (OUTSIDE SALES ACCOUNT EXECUTIVE-FLIGHT TECHNICIAN) Home Medications EnteredHOME MEDICATIONS AT DISCHARGE DateReconciliation Comment/ Additional Information doxepin 25 mg oral capsule 1 cap(s) orally once (at bedtime) 22-Jun-2022 10:45 Discontinued; Discontinue from ORM doxepin 25 mg oral capsule is not required folic acid 1 mg oral tablet 1 tab(s) orally once a day supplement 22-Jun-2022 11:08 Discontinued; Discontinue from ORM folic acid 1 mg oral tablet is not required gabapentin 300 mg oral capsule 1 cap(s) orally 4 times a day 09-Jul-2022 12:57 Discontinued; Discontinue from ORM gabapentin 300 mg oral capsule is not required hydrOXYzine pamoate 50 mg oral capsule 1 cap(s) orally 4 times a day, As Needed - for anxiety 09-Jul-2022 12:58 Discontinued; Discontinue from ORM hydrOXYzine pamoate 50 mg oral capsule is not required Multiple Vitamins with Minerals oral tablet 1 tab(s) orally once a day supplement 22-Jun-2022 11:08 Multiple Vitamins with Minerals oral tablet 1 tab(s) orally once a day supplement 18-Aug-2022 13:13 Discontinued; Copy/Discontinue Prescription is created for Multiple Vitamins with Minerals oral tablet nicotine 14 mg/24 hr transdermal film, extended release 1 patch transdermal every 24 hours smoking cessation 22-Jun-2022 11:07 Discontinued; Discontinue from ORM nicotine 14 mg/24 hr transdermal film, extended release is not required OLANZapine 10 mg oral tablet 1 tab(s) orally once (at bedtime) 22-Jun-2022 10:46 Discontinued; Discontinue from ORM OLANZapine 10 mg oral tablet is not required OLANZapine 2.5 mg oral tablet 1 tab(s) orally 2 times a day - (Every 1 day at 08:00, 12:00 ) 22-Jun-2022 10:46 Discontinued; Discontinue from ORM OLANZapine 2.5 mg oral tablet is not required paliperidone 3 mg oral tablet, extended release 1 tab(s) orally once a day (in the evening) 09-Jul-2022 12:59 Discontinued; Discontinue from ORM paliperidone 3 mg oral tablet, extended release is not required paliperidone 6 mg oral tablet, extended release 1 tab(s) orally once a day (in the morning) 09-Jul-2022 13:00 Discontinued; Discontinue from ORM paliperidone 6 mg oral tablet, extended release is not required pantoprazole 40 mg oral delayed release tablet 1 tab(s) orally once a day GERD 22-Jun-2022 11:07 Discontinued; Discontinue from ORM pantoprazole 40 mg oral delayed release tablet is not required thiamine 100 mg oral tablet 1 tab(s) orally once a day supplement 22-Jun-2022 11:08 Discontinued; Discontinue from ORM thiamine 100 mg oral tablet is not required topiramate 25 mg oral tablet 1 tab(s) orally 2 times a day 09-Jul-2022 12:59 Discontinued; Discontinue from ORM topiramate 25 mg oral tablet is not required Current OrdersDateHOME MEDICATIONS AT DISCHARGE DateReconciliation Comment/ Additional Information Acetaminophen Tablet (TYLENOL)DOSE = 650 mg Oral Every 4 Hours, PRN Pain - Mild (1-3) 17-Aug-2022 11:23 Acetaminophen is not required Divalproex Sodium Del Rel (Depakote) Enteric Coated TabletDOSE = 500 mg Oral 3 Times a DayNotes from Pharmacy: Low Risk Hazardous Drug- Single Nitrile Glove 17-Aug-2022 12:43 divalproex sodium 500 mg oral delayed release tablet 1 tab(s) orally 3 times a day 18-Aug-2022 13:10 Prescription is created for divalproex sodium 500 mg oral delayed release tablet Folic Acid TabletDOSE = 1 mg Oral Daily 17-Aug-2022 11:23 folic acid 1 mg oral tablet 1 tab(s) orally once a day 18-Aug-2022 13:13 Prescription is created for folic acid 1 mg oral tablet Gabapentin Capsule (NEURONTIN)DOSE = 300 mg Oral 4 Times a Day 17-Aug-2022 11:23 gabapentin 300 mg oral capsule 1 cap(s) orally 4 times a day 18-Aug-2022 13:11 Prescription is created for gabapentin 300 mg oral capsule Haloperidol Lactate Tablet (HALDOL)DOSE = 5 mg Oral Every 6 Hours, PRN Agitation 17-Aug-2022 11:23 Haloperidol Lactate is not required Haloperidol Lactate Injectable (HALDOL)DOSE = 5 mg IntraMuscular Every 6 Hours, PRN severe agitation 17-Aug-2022 11:23 Haloperidol Lactate Injectable is not required hydrOXYzine Hydrochloride (ATARAX) TabletDOSE = 50 mg Oral Every 6 Hours, PRN anxiety 17-Aug-2022 11:23 hydrOXYzine Hydrochloride (ATARAX) is not required Ibuprofen Tablet (ADVIL, MOTRIN)DOSE = 600 mg Oral Every 6 Hours, PRN Pain - Mod (4-6) 17-Aug-2022 11:23 Ibuprofen is not required Magnesium Hydroxide -Al Hydrox -Simethicone Oral Liquid (MAALOX)DOSE = 30 mL Oral Every 6 Hours, PRN Indigestion/Heartburn 17-Aug-2022 11:23 Magnesium Hydroxide -Al Hydrox -Simethicone Oral Liquid is not required Magnesium Hydroxide Oral Liquid CONCENTRATE (MILK OF MAGNESIA)DOSE = 10 mL Oral Every 24 Hours, PRN Constipation 05 (more content not included)... Normal [facility] VALPROIC ACIDon 08-18-2022 VALPROIC ACID 76 ug/mL Normal 50 - 100 [facility] Comment on above: Performed By: #### [facility] #### [address] [id number] Admission Risk Screen - Adul ton 08-17-2022 Admission Risk Screen - Adult Allergies: Allergies: No Known Allergies: Patient Verification: New W ID Band Applied in my Departmentyes Patient Identity Verified Bypatient ID Band FULL Name, include Middle, spelling matches patient's ID used for verificationyes ID Band Matches Patient ID used for Verficationyes ID Band MRN Matches EMR MRNyes Visitor Restriction: Coronavirus Visitor Restriction: Reasonable restrictions to in-person visitors will be observed due to current coronavirus pandemic. Travel History: COVID-19 Screening Completedno exposure or symptoms Travel or Exposure Past 30 DaysNO travel to International locations in the past 30 days Ebola AlertFor Ebola-like Symptoms: Isolate Patient and Notify Provider/Photoengraving Etcher For Contact: Notify Provider/Photoengraving Etcher [place] Fall Screen: History of falling (immediate or previous)no (0) Secondary Diagnosisyes (15) Intravenous Therapy/ Heparin/Saline Lockno (0) Gait/Transferringnormal/bedrest/wheelchair (0) Ambulatory Aidsnone/bedrest/nurse assist (0) Mental Statusoriented to own ability (0) Score: Low risk (<25). Moderate risk (25-44). High risk (>44).15 [place]ondon InterventionsLOW INTERVENTIONS: *patient oriented to surroundings and call system, * patient/family falls education completed and documented, *patients fall status communicated during bedside handoff, *whiteboard updated, *mode of toileting discussed with patient, *bed in low position with brakes locked, *call light in reach, * non-skid footwear Functional Screen: Functional Screen: In the recent/past 2-4 weeks, patient or family have noticedno issues that require a speech/language consult at this time AM-PAC- Basic Mobility/Daily Activity: Patient baseline bedboundno Learning Assessment (Patient): Patient is Able to be Assessed for Learningyes Factors Influencing Readiness to Learnacuteness of illness Factors that Impact Ability to Learnacuteness of illness Devices/Methods Used to Communicatenone Learning Preferencesindividual instruction Cultural Considerationsnone Developmental Considerationsnone Sabianist Considerationsnone Learning Assessment (Other Learner): Other learner availableno Adult Nutrition Screen: Have you recently lost weight without tryingno Have you been eating poorly because of a decreased appetiteno Malnutrition Screening Tool Score0 Malnutrition Screening Tool RiskMST = 0 or 1 Not at risk. Eating well with little or no weight loss Nutrition Consult needed this visitno Can Patient Participate in Room Serviceyes Patient requires Paper Dishes/Plastic Utensilsno Pain Screen: Pain Scalenumerical 0-10 Pain Scale Educationteaching provided Current Pain Level0 = None Acceptable Pain Level0 = None Expression of Pain (nonverbal)none Chronic Painyes Chronic Head/Neck pain locationneck Chronic Back pain locationthoracic spine, lumbar spine Spiritual Screen: Are there any cultural, spiritual, amish practices/values/needs that are important for us to knowno Vaccinations: Vaccination - Influenza Vaccination Screen: Is it flu season (between and October 10)Yes Screening for identified contraindications to influenza vaccination patient/caregiver refusal Vaccination - Pneumonia Vaccination Screen: Patient has received a previous pneumonia vaccine:no/unknown... Immunocompetent persons with underlying chronic conditions or reside in equipment operator intermodal yard care facilitiescigarette smoking Persons with Functional or Anatomic Asplenianone of these conditions Immunocompromised Personsnone of these conditions Pneumonia vaccine NOT indicated due to:patient/caregiver refusal at this time Taran: Skin - Taran Scale: Taran: Sensory Perception (response to environment)(4) no impairment Taran: Moisture (degree skin exposed to moisture)(4) rarely moist Taran: Activity (ability to walk)(4) walks frequently Taran: Mobility (amount/control of body movement)(4) no limitation Taran: Nutrition (quality of food intake)(3) adequate Taran: Friction and Shear(3) no apparent problem Taran: Score22 Significant Indicatiors: Significant Indicators: Complete Pressure Injury: Pressure Injury Present on Admissionno Advance Directives: Advance Directive (Medical)no Advance Directive Information Givenpatient/family declined Reason No Advance Directive (Medical)did not wish to discuss adv directive/surrogate Advance Directive (Mental Health)no Advance Directive Information Given (Mental Health)patient/family declined Reason No Advance Directive (Mental Health)did not wish to discuss adv directive/surrogate Advanced Directive CommentPt's emergency contact is his financial and medical POA Strengths (document at least 2 ): 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 motivated to received help Sa (more content not included)... Normal [facility] Discharge Planning Hdih1ey 0 08-17-2022 Discharge Planning Note2 Discharge Planning: Discharge Transportation Needed from [facility] Anticipated Discharge [id number] Discharge Planning Plans for alcohol rehab in-pt. Pt. was in a intermediate or couch surfing with a friend on occ. Pt. lacks support system. 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 Goals are to establish sober living and obtain work; to be a better father to his children. 08/18/22 Pt will likely need to access a homeless intermediate unless he pursues and secures residential/sober living or makes arrangements with family/friends. He reports [facility] told him he cannot come to their sober living until he has again finished a 30-day program. He accepted [facility] call list and applications and indicates understanding he is needing to make any initial contacts. Pt's demographics indicate [place] [place] address. Provided information on both [employer] and [employer]) [facility], in case pt needs it. LEONARDA Romero Assessment: Discharge Planning Assessment [id number] Lives Withalone(1) Living Arrangementshomeless/intermediate(1) Stated Reason for Admissionwas suicidal(1) Arrived Fromemergency department (1) Resource/Environmental Concernsreliable transportation(1) Transportation Concernscar, none(1) Anticipated Transition Toshelter(1) Services Anticipated at Transitionrehabilitation services; mental health services(1) Discharge Documentation: Discharge/Transfer Date/[id number] Transportation Methodtransportation service Discharge Modeambulatory Code StatusCode Status order at time of discharge: Full Code Valuables/Medications/Belongings Returnedyes Final Disposition.Home Electronic Signatures: Andreina Cuevas (RN) (Signed 18-Aug-2022 13:15) Authored: Discharge Planning, Discharge Documentation Fay Evans (SHELIA) (Signed 17-Aug-2022 18:00) Authored: Discharge Planning, Assessment Jaida Dorsey (YOLA) (Signed 18-Aug-2022 09:20) Authored: Discharge Planning Ashish Bloom (UNIT SECT) (Signed 18-Aug-2022 13:22) Authored: Discharge Planning, Discharge Documentation Last Updated: 18-Aug-2022 13:22 by Ashish Bloom (UNIT SECT) References: 1. Data Referenced From Patient Profile - Adult v2 17-Aug-2022 17:19 Normal [facility] Patient Profile - Adult v2on 08-17-2022 Patient Profile - Adult v2 Profile: Initial Info: How to be AddressedJoseph or Tee(1) Spoken Language PreferredEnglish (1) Stated Reason for Admissionwas suicidal Wants Family/Rep Notified of Admissionno Notify PCPdo not notify PCP Informed of Patient Visiting Rightsyes Arrived FromRoadster department Employment Statusunemployed(1) Current or Previous Servicenone(1) Patient Belongingsremains with patient Patient Belongings Remaining with Patientclothing Medications Brought to Hospitalno General Health: Blood Avoidance/Restrictionsnone(1) Previous Transfusion Reactionnot applicable(1) Weight in kg91 kilogram(s) Weight in qaf858.6 pound(s) Weight Methodstated Scale Typestanding Height in cm170.1 centimeter(s) Height in feet5 feet Height in inches6.97 inch(es) Height Methodstated BMI (kg/m2)31.45 square meter RSP Based Care: How would you like to participate in your caretalk to staff, take meds What is the number one concern for you during this hospitalizationto feel better, make some goals What is the most important thing we can do to support you during this hospitalizationhelp me look up rehab Is there anything we need to know to best care for youdon't know Substance: Smoking Statusheavy user (uses >30 cig/day, OR >1.5 ppd, OR >3 cans/pouches loose leaf tobacco per week, OR >1.5 vape pods per day) (2) Tobacco Cessation Education (provide if tobacco use within the last 12 mos)yes Alcohol Usedaily, history of abuse(2) Drug Usedenies (2) Health Mgmt: Symptoms/Conditions Managed at Homenone Relationship/Environ: Significant Exposurenone(1) Resource/Environmental Concernsreliable transportation Transportation Concernscar, none Primary Source of Support/Comfortno one Lives Withalone Living Arrangementshomeless/intermediate Services Anticipated at Transitionrehabilitation services; mental health services Anticipated Transition Toshelter Significant IndicatorsComplete Information Review: Allergies, Home Meds and Significant Events have been Reviewed and Verified with Patient/Familyyes ALLERGY, INTOLERANCE, ADVERSE EVENT: Allergies: No Known Allergies: Active Electronic Signatures: Fay Evans (SHELIA) (Signed 17-Aug-2022 17:56) Authored: Initial Info, General Health, RSP Based Care, Substance, Health Mgmt, Relationship/Environ, Additional Information Last Updated: 17-Aug-2022 17:56 by Fay Evans (SHELIA) References: 1. Data Referenced From Patient Profile - Adult v2 13-Aug-2022 17:47 2. Data Referenced From History and Physical - Psychiatry 17-Aug-2022 12:32 Normal [facility] Discharge [id number] Discharge Profile2 Discharge Orders: Anticipated Discharge Date: Anticipated Discharge [id number] DNAR: Code Status at Discharge: Full Code Activity: activity as tolerated. May shower. Diet: Dietregular Additional Orders: Additional Instructions Patient will be discharged to an inpatient psych unit for further treatment and management of his major depression with suicidal ideations. Hospital Course (Home Care/Gold Form): Hospital Course: Hospital Course: include significant abnormal lab values 52-year-old male with past medical history of depression, anxiety, alcohol abuse who was admitted with major depression with suicidal ideations. He was admitted to medicine due to risk of alcohol withdrawal and DTs. He has been on the medical floor for the past 3 days, last drink was more than 72 hours ago, he is at low risk of DTs now. He is medically cleared for discharge. I will discharge him from a medical standpoint and then he will go to the psych floor for further treatment and management of his major depression with suicidal ideation. Denying any nausea, vomiting, shortness of breath or abdominal pain. Provider FINAL REVIEW of Orders: Final Review: Final Review of Medication Reconciliation and Orders Completedby Physician Reviewing ProviderDiaz Paz MD at 16-Aug-2022 10:59:22 Appointments: Follow-Up Appointment 01: Physician/Dept/ServicePsychiatry Electronic Signatures: Diaz Paz) (Signed 16-Aug-2022 10:59) Authored: Discharge Orders, Hospital Course (Home Care/Gold Form), Provider FINAL REVIEW of Orders, Appointments, Gold Form - Seat Joiner Chainstitch Summary Last Updated: 16-Aug-2022 10:59 by Diaz Paz) [facility] Order Reconciliationon 08-16 Order Reconciliation Page 1 Discharge Reconciliation Document Reconciliation Type: Discharge requested on behalf of Diaz Paz (Physician) done by Diaz Paz) Discharge - Reconciliation: 16-Aug-2022 10:58 by: Diaz Paz) Home Medications EnteredHOME MEDICATIONS AT DISCHARGE DateReconciliation Comment/ Additional Information doxepin 25 mg oral capsule 1 cap(s) orally once (at bedtime) 22-Jun-2022 10:45 doxepin 25 mg oral capsule 1 cap(s) orally once (at bedtime) 22-Jun-2022 10:45 doxepin 25 mg oral capsule is continued as doxepin 25 mg oral capsule folic acid 1 mg oral tablet 1 tab(s) orally once a day supplement 22-Jun-2022 11:08 folic acid 1 mg oral tablet 1 tab(s) orally once a day supplement 22-Jun-2022 11:08 folic acid 1 mg oral tablet is continued as folic acid 1 mg oral tablet gabapentin 300 mg oral capsule 1 cap(s) orally 4 times a day 09-Jul-2022 12:57 gabapentin 300 mg oral capsule 1 cap(s) orally 4 times a day 09-Jul-2022 12:57 gabapentin 300 mg oral capsule is continued as gabapentin 300 mg oral capsule hydrOXYzine pamoate 50 mg oral capsule 1 cap(s) orally 4 times a day, As Needed - for anxiety 09-Jul-2022 12:58 hydrOXYzine pamoate 50 mg oral capsule 1 cap(s) orally 4 times a day, As Needed - for anxiety 09-Jul-2022 12:58 hydrOXYzine pamoate 50 mg oral capsule is continued as hydrOXYzine pamoate 50 mg oral capsule Multiple Vitamins with Minerals oral tablet 1 tab(s) orally once a day supplement 22-Jun-2022 11:08 Multiple Vitamins with Minerals oral tablet 1 tab(s) orally once a day supplement 22-Jun-2022 11:08 Multiple Vitamins with Minerals oral tablet is continued as Multiple Vitamins with Minerals oral tablet nicotine 14 mg/24 hr transdermal film, extended release 1 patch transdermal every 24 hours smoking cessation 22-Jun-2022 11:07 nicotine 14 mg/24 hr transdermal film, extended release 1 patch transdermal every 24 hours smoking cessation 22-Jun-2022 11:07 nicotine 14 mg/24 hr transdermal film, extended release is continued as nicotine 14 mg/24 hr transdermal film, extended release OLANZapine 10 mg oral tablet 1 tab(s) orally once (at bedtime) 22-Jun-2022 10:46 OLANZapine 10 mg oral tablet 1 tab(s) orally once (at bedtime) 22-Jun-2022 10:46 OLANZapine 10 mg oral tablet is continued as OLANZapine 10 mg oral tablet OLANZapine 2.5 mg oral tablet 1 tab(s) orally 2 times a day - (Every 1 day at 08:00, 12:00 ) 22-Jun-2022 10:46 OLANZapine 2.5 mg oral tablet 1 tab(s) orally 2 times a day - (Every 1 day at 08:00, 12:00 ) 22-Jun-2022 10:46 OLANZapine 2.5 mg oral tablet is continued as OLANZapine 2.5 mg oral tablet paliperidone 3 mg oral tablet, extended release 1 tab(s) orally once a day (in the evening) 09-Jul-2022 12:59 paliperidone 3 mg oral tablet, extended release 1 tab(s) orally once a day (in the evening) 09-Jul-2022 12:59 paliperidone 3 mg oral tablet, extended release is continued as paliperidone 3 mg oral tablet, extended release paliperidone 6 mg oral tablet, extended release 1 tab(s) orally once a day (in the morning) 09-Jul-2022 13:00 paliperidone 6 mg oral tablet, extended release 1 tab(s) orally once a day (in the morning) 09-Jul-2022 13:00 paliperidone 6 mg oral tablet, extended release is continued as paliperidone 6 mg oral tablet, extended release pantoprazole 40 mg oral delayed release tablet 1 tab(s) orally once a day GERD 22-Jun-2022 11:07 pantoprazole 40 mg oral delayed release tablet 1 tab(s) orally once a day GERD 22-Jun-2022 11:07 pantoprazole 40 mg oral delayed release tablet is continued as pantoprazole 40 mg oral delayed release tablet thiamine 100 mg oral tablet 1 tab(s) orally once a day supplement 22-Jun-2022 11:08 thiamine 100 mg oral tablet 1 tab(s) orally once a day supplement 22-Jun-2022 11:08 thiamine 100 mg oral tablet is continued as thiamine 100 mg oral tablet topiramate 25 mg oral tablet 1 tab(s) orally 2 times a day 09-Jul-2022 12:59 topiramate 25 mg oral tablet 1 tab(s) orally 2 times a day 09-Jul-2022 12:59 topiramate 25 mg oral tablet is continued as topiramate 25 mg oral tablet Current OrdersDateHOME MEDICATIONS AT DISCHARGE DateReconciliation Comment/ Additional Information ARIPiprazole Tablet (ABILIFY)DOSE = 5 mg Oral Daily 15-Aug-2022 12:20 ARIPiprazole is not required Doxepin Capsule (SINEQUAN)DOSE = 75 mg Oral At Bedtime 15-Aug-2022 12:20 Doxepin is not required Folic Acid TabletDOSE = 1 mg Oral Daily 13-Aug-2022 12:11 Folic Acid is not required Gabapentin CapsuleDOSE = 300 mg Oral 4 Times a Day 13-Aug-2022 16:21 Gabapentin is not required hydrOXYzine Pamoate (VISTARIL) CapsuleDOSE = 50 mg Oral Every 6 Hours, PRN for anxiety 13-Aug-2022 16:21 hydrOXYzine Pamoate (VISTARIL) is not required Ketorolac Injectable (TORADOL)DOSE = 30 mg IntraVenous Push Every 6 Hours, PRN Pain - Severe (7-10) 15-Aug-2022 11:57 Ketorolac Injectable is not required LORazepam Injectable (ATIVA (more content not included)... Normal [facility] CBCon 08-15-2022 Erythrocyte distribution wid th (RBC) [Ratio] 13.0 % Normal 11.5 - 14.5 [facility] Comment on above: Performed By: #### C BC ####[facility] [place], [place] [id number] Hematocrit (Bld) [Volume fraction] 45.5 % Normal 4 1.0 - 52.0 [facility] Comment on above: Performed By: #### C BC ####[facility] [place], [place] [id number] Hemoglobin (Bld) [Mass/Vol] 14.8 g/dL Normal 13.5 - 1 7.5 [facility] Comment on above: Performed By: #### C BC ####[facility] [place], [place] [id number] MCHC (RBC) [Mass/Vol] 32.5 g/dL Normal 32.0 - 36.0 [facility] Comment on above: Performed By: #### C BC ####[facility] [place], [place] [phone] MCV (RBC) [Entitic vol] 93 fL Normal 80 - 100 [facility] Comment on above: Performed By: #### C BC ####[facility] [place], [place] [phone] Platelets (Bld) [#/Vol] 227 10*3/uL Normal 150 - 450 [facility] Comment on above: Performed By: #### C BC ####[facility] [place], [place] [id number] RBC 4.89 x10E12/L Normal 4.50 - 5.90 [facility] Comment on above: Performed By: #### C BC ####[facility] [place], [place] [id number] WBC (Bld) [#/Vol] 8.3 10*3/uL Normal 4.4 - 11.3 [facility] Comment on above: Performed By: #### C BC ####[facility] [place], [place] [id number] COMPREHENSIVE PANELon 2022 Albumin [Mass/Vol] 3.5 g/dL Normal 3.4 - 5.0 [facility] Comment on above: Performed By: #### C MP ####[facility] [place] [id number] ALP [Catalytic activity/Vol] 77 U/L Normal 33 - 12 0 [facility] Comment on above: Performed By: #### C MP ####[facility] [place], [place] [phone] ALT [Catalytic activity/Vol] 26 U/L Normal 10 - 52 [facility] Comment on above: Result Comment: Yumi ents treated with Sulfasalazine may generate falsely decreased results for ALT. Performed By: #### C MP ####[address] [id number] Anion gap [Moles/Vol] 12 mmol/L Normal 10 - 20 [facility] Comment on above: Performed By: #### C MP ####[address] [id number] AST [Catalytic activity/Vol] 20 U/L Normal 9 - 39 [facility] Comment on above: Performed By: #### C MP ####[address] [id number] Bilirubin [Mass/Vol] 0.5 mg/dL Normal 0.0 - 1.2 [facility] Comment on above: Performed By: #### C MP ####[address] [id number] Calcium [Mass/Vol] 8.2 mg/dL Low 8.6 - 10.3 [facility] Comment on above: Performed By: #### C MP ####[address] [id number] Chloride [Moles/Vol] 108 mmol/L High 98 - 107 [facility] Comment on above: Performed By: #### C MP ####[address] [id number] Creatinine [Mass/Vol] 1.13 mg/dL Normal 0.50 - 1.30 [facility] Comment on above: Performed By: #### C MP ####[address] [id number] GFR/1.73 sq M.predicted judy g non-blacks MDRD (S/P/Bld) [Vol rate/Area] 79 mL/min/{1.73_m2} Normal >90 [facility] Comment on above: Result Comment: CALCULATIONS OF ESTIMATE D GFR ARE PERFORMED USING THE 2020 CKD-EPI STUDY REFIT EQUATION WITHOUT THE RACE VARIABLE FOR THE IDMS-TRACEABLE CREATININE METHODS. https://jasn.asnjournals.org/content//ASN.4836829850 Performed By: #### C MP ####[address] [id number] Glucose [Mass/Vol] 86 mg/dL Normal 74 - 99 [facility] Comment on above: Performed By: #### C MP ####[address] [id number] HCO3 (Bld) [Moles/Vol] 23 mmol/L Normal 21 - 32 [facility] Comment on above: Performed By: #### C MP ####[address] [id number] Potassium [Moles/Vol] 4.0 mmol/L Normal 3.5 - 5.3 [facility] Comment on above: Performed By: #### C MP ####[address] [id number] Protein [Mass/Vol] 6.0 g/dL Low 6.4 - 8.2 [facility] Comment on above: Performed By: #### C MP ####[address] [id number] Sodium [Moles/Vol] 139 mmol/L Normal 136 - 145 [facility] Comment on above: Performed By: #### C MP ####[address] [id number] Urea nitrogen [Mass/Vol] 27 mg/dL High 6 - 23 [facility] Comment on above: Performed By: #### C MP ####[address] [id number] Daily Progress Note - Psychi woo 08-15-2022 Daily Progress Note - Psychiatry Subjective Data: EDWARD CROWDER is a 52 year old Male who is Hospital Day # 3. Additional Information: Tee described his mood as depressed still auditory loose Nations are present. Still needing Ativan for his alcohol withdrawal symptoms and still scoring high on CIWA Abilify will be offered to him after discussion of benefits and risks were done with him he was agreeable to trying it and understands why he cannot take olanzapine with the Ativan. Patient is tolerating the pena milieu well. Labs Reviewed. Vitals Reviewed. Nursing Notes Reviewed. No EPS, TD, vitals stable. MSE: Patient was alert, oriented to time, place, person and situation. Patient appears well groomed and clad in climate appropriate clothes. Patient is resigned and guarded on approach. Recent and remote memory within normal limits. Memory registration and recall within normal limits. Attention and concentration within normal limits. Speech normal in rate, rhythm and volume. Good eye contact. Though process Linear. Intact associations. Good fund of knowledge. Mood sad and affect constricted. Patient has some level of paranoia . Patient is experiencing auditory and hallucinations. Patient has active suicidal ideations and is not future oriented. Patient has fair insight, fair judgment and good impulse control. Musculoskeletal: Normal gait, no Parkinsonism, no Dystonia, no Akathisia, no TD. Psychomotor activity within normal limits. Diagnosis: Bipolar 1 depressed Assessment and Plan: Once medically cleared please send patient to 5 W. Patient is agreeable to going currently and cannot leave AGAINST MEDICAL ADVICE unless cleared by psychiatry Abilify 5 mg to be initiated once a day and doxepin would be increased to a dose of 75 mg at bedtime as still pretty restless at night not sleeping well Ativan based on CIWA scoring to continue for alcohol withdrawal with history of DT Electronic Signatures: Jin Liang) (Signed 15-Aug-2022 12:22) Authored: Subjective Data, Note Completion Last Updated: 15-Aug-2022 12:22 by Jin Liang) Normal [facility] Daily Progress Note-General Internal Medicineon 08-15-2022 Daily Progress Note-General Internal Medicine Service: General Internal Medicine Subjective Data: EDWARD CROWDER is a 52 year old Male who is Hospital Day # 3. Patient seen and examined. Denies any fevers, chills, nausea, vomiting, abdominal pain is better. He still feels tired, still having those thoughts and feelings about ending his life. Appears slightly jittery. Objective Data: Objective Information: T PRBPMAPSpO2 [id number]% Date/Time08/14 23: 19:002 19:002 23:492 23:492 23:49 Range(36.6C - 37.8C ) (77 - 92 ) (16 - 18 ) (95 - 122 )/ (53 - 68 ) (68 - 85 ) (93% - 96% ) Highest temp of 37.8 C was recorded at 08/14 14:51 Pain reported at 08/15 8:12: 0 = None Physical Exam Narrative: Physical Exam: A&O x3 PERRL EOMI Lungs diminished breath sounds bilaterally Heart RRR Abd soft NT Ext no leg edema Neuro no focal deficit Psych he has a flat affect, not really making eye contact or engaging in conversation Medication: Medications: Continuous Medications No continuous medications are active Scheduled Medications 1. Doxepin: 50 mg Oral At Bedtime 2. Folic Acid: 1 mg Oral Daily 3. Gabapentin: 300 mg Oral 4 Times a Day 4. Multivitamin with Minerals: 1 tablet(s) Oral Daily 5. Thiamine: 100 mg Oral Daily 6. Topiramate: 25 mg Oral 2 Times a Day PRN Medications 1. hydrOXYzine Pamoate (VISTARIL): 50 mg Oral Every 6 Hours 2. LORazepam Injectable: 0.5 mg IntraVenous Push Every 2 Hours 3. LORazepam Injectable: 1 mg IntraVenous Push Every 2 Hours 4. LORazepam Injectable: 2 mg IntraVenous Push Every 2 Hours Recent Lab Results: Results: CBC: 08/15/2022 05:39 \ Hgb / \ 14.8 / WBC Plt 8.3 227 / Hct \ / 45.5 \ RBC: 4.89 MCV: 93 CMP: 08/15/2022 05:38 NA+ Cl- BUN / 139 108 H 27 H / Glucose 86 K+ HCO3- Creat \ 4.0 23 1.13 \ \ T Bili / \ 0.5 / AST x ---- x ALT 20 x ---- x 26 / Alk P \ / 77 \ Calcium : 8.2 L Anion Gap : 12 Albumin : 3.5 T Protein : 6.0 L Assessment and Plan: Code Status: Code StatusFull Code Assessment: Impression: Alcohol abuse with withdrawal Major depression with suicidal ideations Bipolar disorder Plan: Continue CIOH protocol for alcohol withdrawal, on Ativan He is at risk of going into DTs further for 72 hours, by tomorrow morning it would be about 72 hours since his last drink and he can be medically cleared Appreciate psychiatry input, will most likely need inpatient placement Continue supportive care, symptomatic treatment DVT prophylaxis Continue regular home meds Keep him on telemetry Electronic Signatures: Diaz Paz) (Signed 15-Aug-2022 10:33) Authored: Service, Subjective Data, Objective Data, Assessment and Plan, Note Completion Last Updated: 15-Aug-2022 10:33 by Diaz Paz) Normal [facility] Consult - Psychiatryon 08-14 Consult - Psychiatry History of Present Illness: Admission Reason: Suicidal thoughts of overdosing on medications HPI: Mr. Edward Crowder who is a 52-year-old male with history of bipolar depression alcohol use disorder severe has been having difficulty sleeping at night and after losing 3 of his family members in the past 7 months he has been deeply depressed has been drinking heavily and had active suicidal thoughts of overdosing on medications. Edward on assessment today described his mood as depressed and sad. He is having difficulty falling asleep and even staying asleep. He had received psychiatric care and alcohol detox on the psychiatry unit previously and was offered olanzapine to help with mood stabilization and doxepin was added to help with his insomnia as trazodone was not very helpful. He had responded well to doxepin at 25 mg and considering the risk of overdose and high lethality with her doxepin the dose was not considered to be increased at the time. I discussed at length about the high lethality associated with doxepin and may even consider finding alternatives for insomnia once his acute state currently is stabilized from the alcohol withdrawal. Lack of sleep may worsen the risk of further lowering of seizure threshold. Edward is very much interested in going to an inpatient alcohol rehab. He is agreeable to coming down to psychiatry unit and would be admitted to 5 W. in this hospital. Patient was experiencing some visual hallucinations likely associated with alcohol withdrawal state although denied at this morning. On assessment today patient denied any auditory hallucinations, visual hallucinations, did not endorse any delusions and no objective signs of psychosis evident. No signs of disorganized behavior, disorganized speech. Patient denied any racing thoughts, flight of ideas, severe sleeplessness, unusually elevated or angry mood, unusual impulsivity, unusual spending or impulsive physical relationships. No objective signs of yoan or hypomania noticed. Substance abuse: Patient has been drinking heavily in excess of 12 units of alcohol per day Past Psych: There have been prior psych hospitalization. Past Substance: Patient denied any drug abuse, treatment or rehab. Family Psych: Denied any history of suicide in the family. Family history not pertinent to presenting problem or chief complaint Social: He recently lost 3 of his family members MSE: Patient was alert, oriented to time, place, person and situation. Patient appears well groomed and clad in climate appropriate clothes. Patient is resigned and guarded on approach. Recent and remote memory within normal limits. Memory registration and recall within normal limits. Attention and concentration within normal limits. Speech normal in rate, rhythm and volume. Good eye contact. Though process Linear. Intact associations. Good fund of knowledge. Mood sad and affect constricted. Patient did not endorse any delusions. Patient denied any auditory visual hallucinations. Patient has active suicidal ideations and is not future oriented. Patient has fair insight, fair judgment and good impulse control. Musculoskeletal: Normal gait, no Parkinsonism, no Dystonia, no Akathisia, no TD. Psychomotor activity within normal limits. Diagnosis: Bipolar 1 depressed, alcohol use disorder severe Assessment and Plan: Mood: Once medically stable please admit patient to 5 W. he cannot leave AGAINST MEDICAL ADVICE. Olanzapine has been stopped because of precipitous decline in blood pressure including delirium association with Ativan coadministration. If mood instability worsens alternative treatment then olanzapine may be considered or he had previously responded well to diazepam. Vitals currently are stable. Doxepin 25 mg would be increased to 50 and eventually may consider switching it to another sedative agentWhen he is on the psychiatry unit He is interested in inpatient rehab after his acute psychiatric care stabilization He does have access to firearms and geriatric social worker to help patient to arrange for its removal prior to his discharge Allergies: No Known Allergies: Medications Prior to Admission: doxepin 25 mg oral capsule: 1 cap(s) orally once (at bedtime) OLANZapine 10 mg oral tablet: 1 tab(s) orally once (at bedtime) OLANZapine 2.5 mg oral tablet: 1 tab(s) orally 2 times a day - (Every 1 day at 08:00, 12:00 ) pantoprazole 40 mg oral delayed release tablet: 1 tab(s) orally once a day GERD nicotine 14 mg/24 hr transdermal film, extended release: 1 patch transdermal every 24 hours smoking cessation Multiple Vitamins with Minerals oral tablet: 1 tab(s) orally once a day supplement folic acid 1 mg oral tablet: 1 tab(s) orally once a day supplement thiamine 100 mg oral tablet: 1 tab(s) orally once a day supplement gabapentin 300 mg oral capsule: 1 cap(s) orally 4 times a day hydrOXYzi (more content not included)... Normal [facility] Daily Progress Note-General Internal Medicineon 08-14-2022 Daily Progress Note-General Internal Medicine Service: General Internal Medicine Subjective Data: EDWARD CROWDER is a 52 year old Male who is Hospital Day # 2. Patient seen and examined. Continues to complain of seeing shadows, he still feels depressed and sad, still feels like hurting himself does complain of some nausea but no vomiting, has some lower abdominal pain. No fevers or chills. On further asking he did tell me that he made a plan and wanted to hurt himself by taking extra pills. Objective Data: Objective Information: T PRBPMAPSpO2 [id number]% Date/Time08/14 7: 7: 7: 7: 7: 7:33 Range(36C - 36.8C ) (77 - 97 ) (16 - 18 ) (107 - 203 )/ (60 - 101 ) (82 - 89 ) (94% - 98% ) Pain reported at 08/14 6:00: 2 = Mild Physical Exam Narrative: Physical Exam: A&O x3 PERRL EOMI Lungs diminished breath sounds bilaterally Heart RRR Abd soft NT Ext no leg edema Neuro no focal deficit Psych he has a flat affect, not really making eye contact or engaging in conversation Recent Lab Results: Results: CBC: 08/13/2022 12:10 \ Hgb / \ 16.3 / WBC Plt 10.6 269 / Hct \ / 48.8 \ RBC: 5.37 MCV: 91 Neutrophil %: 80.0 BMP: 08/13/2022 12:10 NA+ Cl- BUN / 135 L 103 16 / Glucose 121 H K+ HCO3- Creat \ 4.3 21 1.00 \ Calcium : 9.4 Anion Gap : 15 Assessment and Plan: Code Status: Code StatusFull Code Assessment: Impression: Alcohol abuse with withdrawal Major depression with suicidal ideations Bipolar disorder Plan: We will continue CIWA protocol for alcohol withdrawal, on Ativan. Seems a little jittery, due to his frequent alcohol use he is at risk of going into DTs for the next 48 hours Psych consulted, will most likely need inpatient placement due to suicidal ideation and major depression Supportive care, symptomatic treatment DVT prophylaxis Observe him on telemetry Continue regular home meds Electronic Signatures: Diaz Paz) (Signed 14-Aug-2022 08:32) Authored: Service, Subjective Data, Objective Data, Assessment and Plan, Note Completion Last Updated: 14-Aug-2022 08:32 by Diaz Paz) Normal [facility] Discharge Planning [id number] 08-14-2022 Discharge Planning Note2 Discharge Planning: Anticipated Discharge [id number] Discharge Planning 08/15/22 1039 Social Work Note The PIERCER has received an environmental concern referral and adult risk screen. The pt has been evaluated by psych this date and has been deemed eligible for inpatient psych treatment with a plan to transfer to the [facility] Inpatient psych unit once the pt is medically stable. Awaiting the pt's medical stability for transfer to the psych unit where the pt will be followed by the psych unit HOME SERVICE DEMONSTRATOR. Tracey LUNDY, [facility] 08/14/22 1630 TCC Patient admitted to psyche for suicidal ideation, once medically cleared can be admitted to psyche unit inpatient, he will be pink slipped. Ct team will continue to follow. Sharita Cantrell RN [facility] 08/15/22 11:50 TCC Rounded with PCP, he states patient will be medically clear tomorrow for transfer to inpatient psyche. CT team to follow. Sharita Cantrell RN [facility] 08/15/22 1227 Social Work Note The PIERCER met with the Unit RN this date. The pt, per MD note can be medically cleared on 08/16/22 which 72 hours since his last alcohol intake. The [facility] transfer. [facility] needs to contacted at [phone] once the pt is medically cleared to pursue the psych inpatient transfer. The EPAT has requested an updated psych note on the date of medical clearance and the Unit RN has informed the psych MD. Awaiting the pt's medical clearance for the referral to [facility] for the recommended [facility] Inpatient treatment. Tracey LUNDY, [facility] Assessment: Discharge Planning Assessment [id number] Primary Contact Name and NumberEstefany Richard [phone] POA(1) Lives Withfriend(s)(1) Living Arrangementshouse(1) Stated Reason for Admissionsuicidal thoughts and insomnia(1) Arrived Fromemergency department (1) Resource/Environmental Concernsfinancial; home accessibility; reliable transportation(1) Financial Concernsunemployed; medicine, unable to afford(1) Transportation Concernscar, none(1) Anticipated Transition Toshelter(1) Services Anticipated at Transitioncase manager hi; rehabilitation services(1) Electronic Signatures: Sharita Cantrell (RN) (Signed 15-Aug-2022 11:52) Authored: Discharge Planning Tracey Jackson) (Signed 15-Aug-2022 12:35) Authored: Discharge Planning, Assessment Last Updated: 15-Aug-2022 12:35 by Tracey Jackson (YOLA) References: 1. Data Referenced From Patient Profile - Adult v2 13-Aug-2022 17:47 Normal [facility] ACUTE TOXICOLOGY PANEL, BLOO Don 08-13-2022 Acetaminophen [Mass/Vol] ug/mL Normal 10.0 - 30.0 [facility] Comment on above: Performed By: #### D RUBL #### [address] [id number] Ethanol [Mass/Vol] 24 mg/dL Abnormal [facility] Comment on above: Result Comment: FOR MEDICAL USE ONLY. . REF VALUES <10 Performed By: #### D RUBL #### [address] [id number] SALICYLATE <3 Normal 4 - 20 [facility] Comment on above: Performed By: #### D RUBL #### [address] [id number] Admission Risk Screen - Adul ton 08-13-2022 Admission Risk Screen - Adult Allergies: Allergies: No Known Allergies: Patient Verification: New W ID Band Applied in my Departmentyes Patient Identity Verified Bypatient ID Band FULL Name, include Middle, spelling matches patient's ID used for verificationyes ID Band Matches Patient ID used for Verficationyes ID Band MRN Matches EMR MRNyes Visitor Restriction: Coronavirus Visitor Restriction: Reasonable restrictions to in-person visitors will be observed due to current coronavirus pandemic. Travel History: COVID-19 Screening Completedno exposure or symptoms(1) Travel or Exposure Past 30 DaysNO travel to International locations in the past 30 days Ebola AlertFor Ebola-like Symptoms: Isolate Patient and Notify Provider/Photoengraving Etcher For Contact: Notify Provider/Photoengraving Etcher Advance Directive: Advance Directive/DNRno (2) Advance Directive Information Givenpatient/family declined [place] Fall Screen: History of falling (immediate or previous)no (0) Secondary Diagnosisno (0) Intravenous Therapy/ Heparin/Saline Lockyes (20) Gait/Transferringnormal/bedrest/wheelchair (0) Ambulatory Aidsnone/bedrest/nurse assist (0) Mental Statusoriented to own ability (0) Score: Low risk (<25). Moderate risk (25-44). High risk (>44).20 [place]ondon InterventionsLOW INTERVENTIONS: *patient oriented to surroundings and call system, * patient/family falls education completed and documented, *patients fall status communicated during bedside handoff, *whiteboard updated, *mode of toileting discussed with patient, *bed in low position with brakes locked, *call light in reach, * non-skid footwear Family Violence Screen: Are you or have you been threatened or abused physically, emotionally, or sexually by anyoneyes Has anyone ever threatened to hurt your family or your petsyes Does anyone try to keep you from having/contacting other friends or doing things outside your homeno Do you feel UNSAFE going back to the place where you are livingno Do you feel anyone has exploited or taken advantage of you financially or of your personal propertyyes Clinical assessment: Are there any apparent signs of injuries/behaviors that could be related to abuse/neglectyes drug abuse Social Service Consult for abuse/neglect needed this visityes Abuse Screen Commentlives on the street and can only stay at [facility] now and again Functional Screen: Functional Screen: In the recent/past 2-4 weeks, patient or family have noticedno issues that require a speech/language consult at this time AM-PAC- Basic Mobility/Daily Activity: Patient baseline bedboundno Turning from your back to your side while in a flat bed without using bedrailsnone Moving from lying on your back to sitting on the side of a flat bed without using bedrailsnone Moving to and from bed to chair (including a wheelchair)none Standing up from a chair using your arms (e.g. wheelchair or bedside chair) none To walk in hospital roomnone Climbing 3-5 steps with railingnone Basic Mobility - Total Score24 Putting on and taking off regular lower body clothingnone Bathing (including washing, rinsing, drying)none Putting on and taking off regular upper body clothingnone Toileting, which includes using toilet, bedpan or urinalnone Taking care of personal grooming such as brushing teethnone Eating Mealsnone Daily Activity - Total Score24 Learning Assessment (Patient): Patient is Able to be Assessed for Learningyes Factors Influencing Readiness to Learninterest in learning Factors that Impact Ability to Learnnone Devices/Methods Used to Communicatenone Learning Preferencesverbal instruction; skill demonstration Cultural Considerationsnone Developmental Considerationsnone Sabianist Considerationsnone Learning Assessment (Other Learner): Other learner availableno Depression Screen: During the past month, have you often been bothered by feeling down, depressed or hopelessyes During the past month, have you often had little interest or pleasure in doing thingsyes Have you had any thoughts of harming anyone elseno (1) Payette Suicide: Risk Screen Not Applicable/Able to Answerable to be screened In the Past Month: Have you wished you were or could go to sleep and not wake upyes(1) In the Past Month: Have you had any actual thoughts of killing yourself yes(1) In the Past Month: Have you been thinking about how you might do thisyes In the Past Month: Have you had these thoughts and had some intention of acting on themyes In the Past Month: Have you started to work out or worked out the details of how to kill yourself Do you intend to carry out this planyes Lifetime: Have you ever done, started to do, or prepared to do anything to end your lifeyes Was this within the past 3 monthsyes Payette Suicide Riskhigh (3) Commentpatient states he would blow his head off or take a bunc (more content not included)... Normal [facility] BASIC METABOLIC PANELon 02-0 Anion gap [Moles/Vol] 15 mmol/L Normal - [facility] Comment on above: Performed By: #### H EPFP #### [facility] [address] [place], [place] [id number] Calcium [Mass/Vol] 9.4 mg/dL Normal 8.6 - 10.3 [facility] Comment on above: Performed By: #### H EPFP #### [address] [id number] Chloride [Moles/Vol] 103 mmol/L Normal 98 - 107 [facility] Comment on above: Performed By: #### H EPFP #### [address] [id number] Creatinine [Mass/Vol] 1.00 mg/dL Normal 0.50 - 1.30 [facility] Comment on above: Performed By: #### H EPFP #### [address] [id number] eGFR MALE >90 Normal >90 [facility] Comment on above: Result Comment: CALCULATIONS OF ESTIMATE D GFR ARE PERFORMED USING THE 2020 CKD-EPI STUDY REFIT EQUATION WITHOUT THE RACE VARIABLE FOR THE IDMS-TRACEABLE CREATININE METHODS. https://jasn.asnjournals.org/content/early/ASN.9346001449 Performed By: #### H EPFP #### [address] [id number] Glucose [Mass/Vol] 121 mg/dL High 74 - 99 [facility] Comment on above: Performed By: #### H EPFP #### [address] [id number] HCO3 (Bld) [Moles/Vol] 21 mmol/L Normal 21 - 32 [facility] Comment on above: Performed By: #### H EPFP #### [address] [id number] Potassium [Moles/Vol] 4.3 mmol/L Normal 3.5 - 5.3 [facility] Comment on above: Performed By: #### H EPFP #### [address] [id number] Sodium [Moles/Vol] 135 mmol/L Low 136 - 145 [facility] Comment on above: Performed By: #### H EPFP #### [address] [id number] Urea nitrogen [Mass/Vol] 16 mg/dL Normal 6 - 23 [facility] Comment on above: Performed By: #### H EPFP #### [address] [id number] CBC AND DIFFERENTIALon 08-13 % AUTOMATED IMMATURE GRAN 0.4 % Normal 0.0 - 0.9 [facility] Comment on above: Result Comment: Beatriz ture Granulocyte Count (IG) includes promyelocytes, myelocytes and metamyelocytes but does not include bands. Percent differential counts (%) should be interpreted in the context of the absolute cell counts (cells/L). Performed By: #### L ACT #### [address] [id number] Basophils (Bld) [#/Vol] 0.02 10*3/uL Normal 0.00 - 0.1 0 [facility] Comment on above: Performed By: #### L ACT #### [address] [id number] Basophils/100 WBC (Bld) 0.2 % Normal 0.0 - 2.0 [facility] Comment on above: Performed By: #### L ACT #### [address] [id number] Eosinophils (Bld) [#/Vol] 0.01 10*3/uL Normal 0.00 - 0 .70 [facility] Comment on above: Performed By: #### L ACT #### [address] [id number] Eosinophils/100 WBC (Bld) 0.1 % Normal 0.0 - 6.0 [facility] Comment on above: Performed By: #### L ACT #### [address] [id number] Erythrocyte distribution wid th (RBC) [Ratio] 12.9 % Normal 11.5 - 14.5 [facility] Comment on above: Performed By: #### L ACT #### [address] [id number] Hematocrit (Bld) [Volume fraction] 48.8 % Normal 4 1.0 - 52.0 [facility] Comment on above: Performed By: #### L ACT #### [address] [id number] Hemoglobin (Bld) [Mass/Vol] 16.3 g/dL Normal 13.5 - 1 7.5 [facility] Comment on above: Performed By: #### L ACT #### [address] [id number] Lymphocytes (Bld) [#/Vol] 1.11 10*3/uL Low 1.20 - 4 .80 [facility] Comment on above: Performed By: #### L ACT #### [address] [id number] Lymphocytes/100 WBC (Bld) 10.5 % Normal 13.0 - 44. 0 [facility] Comment on above: Performed By: #### L ACT #### [address] [id number] MCHC (RBC) [Mass/Vol] 33.4 g/dL Normal 32.0 - 36.0 [facility] Comment on above: Performed By: #### L ACT #### [address] [id number] MCV (RBC) [Entitic vol] 91 fL Normal 80 - 100 [facility] Comment on above: Performed By: #### L ACT #### [address] [id number] Monocytes (Bld) [#/Vol] 0.93 10*3/uL Normal 0.10 - 1.0 0 [facility] Comment on above: Performed By: #### L ACT #### [address] [id number] Monocytes/100 WBC (Bld) 8.8 % Normal 2.0 - 10.0 [facility] Comment on above: Performed By: #### L ACT #### [address] [id number] Neutrophils (Bld) [#/Vol] 8.44 10*3/uL High 1.20 - 7 .70 [facility] Comment on above: Performed By: #### L ACT #### [address] [id number] Neutrophils/100 WBC (Bld) 80.0 % Normal 40.0 - 80. 0 [facility] Comment on above: Performed By: #### L ACT #### [address] [id number] Platelets (Bld) [#/Vol] 269 10*3/uL Normal 150 - 450 [facility] Comment on above: Performed By: #### L ACT #### [address] [id number] RBC 5.37 x10E12/L Normal 4.50 - 5.90 [facility] Comment on above: Performed By: #### L ACT #### [address] [id number] WBC (Bld) [#/Vol] 10.6 10*3/uL Normal 4.4 - 11.3 [facility] Comment on above: Performed By: #### L ACT #### [address] [id number] CREATINE KINASEon 08-13-2022 CK [Catalytic activity/Vol] 87 U/L Normal 0 - 325 [facility] Comment on above: Performed By: #### C K ####[facility] [place] [address] [id number] Covid 19 Resultson 3 SARS-CoV-2 (COVID-19) RNA NESSA+probe Ql (Unsp spec) NEGATIVE COVID-19 Test Coronaviruses are common world-wide and are the cause of many common colds. SARS-COV2 is a new coronavirus that began circulating worldwide in 2019 so we are calling it COVID-19. It has been estimated that four out of five patients with COVID-19 will recover at home without the need for medical attention. Symptoms of COVID-19 may include cough, fever, shortness of breath, loss of taste or smell and other flu-like symptoms including chills, sore muscles, sore throat, and headache. Severe illness is more common in older people and people with other health problems such as high blood pressure, obesity, and immune system problems. If the test is positive, you have COVID-19. You will be contacted by the ordering physicians office and instructed to remain on home isolation, in accordance with CDC guidelines. You may also be contacted by the [facility] to see if any of your close contacts may have been exposed to the virus and need to quarantine. If the test is negative, you likely do not have COVID-19 at this time, but you still may have a different illness that can spread to other people (like Influenza, or the Flu) and could still be at risk for getting COVID-19. We recommend that you stay away from other people to limit the spread of illness until your symptoms are improving and you are fever-free for 24 hours without the use of fever lowering medications such as acetaminophen or ibuprofen. No test is 100% accurate so if you are still concerned you may have COVID-19, talk to your doctor about the need to continue to stay away from others. Medicines Unless your provider told you not to use the following: Acetaminophen (Tylenol and others) is generally safe. Anti-inflammatory medications, such as Ibuprofen (Advil or Motrin) or Naproxen (Aleve) can also be used. Jnms-zdk-sxolvni cough and cold medicines can be used according to the instructions on the package. Some bqke-okz-dmrqshq medicines also contain acetaminophen. Make sure you are not taking more than your recommended dose. For those not hospitalized, there is no specific treatment available for this illness. Antibiotics do not treat Coronaviruses. Follow-Up Follow up with your doctor by scheduling a virtual visit or consider follow-up at one of our urgent care fever clinics. If you are having difficulty breathing, or are very weak and having difficulty standing, this is a medical emergency. Call 911 or have someone take you to the nearest emergency room immediately. If possible, wear a facemask. Additional guidance from the CDC for patients who tested POSITIVE for COVID-19 How to isolate: Isolate yourself in a specific room at home and limit your contact with others. Use a separate bathroom from other members of the household, when possible. Leave home only to get essential medical care. Do not go to work, school or public areas. Avoid using public transportation, ride-sharing, or taxis. Restrict contact with pets and other animals. If you must care for your pet or be around animals while you are sick, wash your hands before and after your interaction and wear a facemask. Make sure that shared spaces in the home have good airflow, such as by an air conditioner or an opened window, weather permitting. Personal Hygiene Procedures: Wear a face mask when in the same room as other people or pets. If a face mask interferes with your breathing, others should wear a mask when sharing space with you. Frequent hand-washing: wash your hands with soap and water for at least 20 seconds. If soap and water are not available, use alcohol-based hand global recruiter. Avoid touching your eyes, nose, and mouth with unwashed hands. Household Hygiene Procedures: Avoid sharing personal household items such as dishes, glassware, cups, eating utensils, towels or bedding with other people or pets in your home. After use, these items should be washed with soap and hot water. Disinfect all high-touch surfaces every day with antibacterial cleaning solutions such as Lysol wipes, bleach, cleansers, etc. High-touch surfaces include tabletops, doorknobs, bathroom fixtures, toilets, phones, keyboards, tablets and bedside tables. Immediately clean any surfaces that may have blood, poop or body fluids on them, using antibacterial cleaning solutions such as Lysol wipes, bleach, cleansers, etc. If clothing or bedding come into contact with blood, poop or body fluids, they should be washed immediately. Follow the directions on the laundry detergent and clothing labels but hot water is recommended when possible. Stopping home isolation precautions: If possible, consult your doctor before stopping home isolation precautions. According to the CDC, you can discontinue home isolation precautions when you have met both of these criteria: Your fever and respiratory symptoms have been gone for 24 bettina (more content not included)... Normal [facility] DRUG SCREEN,URINEon 08-13-19 23 AMPHETAMINE SCREEN,U Negative Normal NEGATIVE [facility] Comment on above: Result Comment: CUTO FF LEVEL: 500 NG/ML Cross-reactivity has been reported with high concentrations of the following drugs: buproprion, chloroquine, chlorpromazine, ephedrine, mephentermine, fenfluramine, phentermine, phenylpropanolamine, pseudoephedrine, and propranolol. Performed By: #### C BCDF #### [address] [id number] BARBITURATES SCREEN,U Negative Normal NEGATIVE [facility] Comment on above: Result Comment: CUTO FF LEVEL: 200 NG/ML Performed By: #### C BCDF #### [address] [id number] BENZODIAZEPINES SCREEN,U Negative Normal NEGATIVE [facility] Comment on above: Result Comment: CUTO FF LEVEL: 200 NG/ML Performed By: #### C BCDF #### [address] [id number] CANNABINOIDS SCREEN,U Negative Normal NEGATIVE [facility] Comment on above: Result Comment: CUTO FF LEVEL: 50 NG/ML Performed By: #### C BCDF #### [address] [id number] COCAINE METABOLITE SCREEN,U Negative Normal NEGATIVE [facility] Comment on above: Result Comment: CUTO FF LEVEL: 150 NG/ML Performed By: #### C BCDF #### [address] [id number] DRUG SCREEN COMMENT SEE BELOW Normal [facility] Comment on above: Result Comment: Drug screen results are presumptive and should not be used to assess compliance with prescribed medication. Contact the performing [facility] laboratory to add-on definitive confirmatory testing if clinically indicated. . Toxicology screening results are reported qualitatively. The concentration must be greater than or equal to the cutoff to be reported as positive. The concentration at which the screening test can detect an individual drug or metabolite varies. The absence of expected drug(s) and/or drug metabolite(s) may indicate non-compliance, inappropriate timing of specimen collection relative to drug administration, poor drug absorption, diluted/adulterated urine, or limitations of testing. For medical purposes only; not valid for forensic use. . Interpretive questions should be directed to the laboratory medical directors. Performed By: #### C BCDF #### [address] [id number] FENTANYL SCREEN,URINE Negative Normal NEGATIVE [facility] Comment on above: Result Comment: CUTO FF LEVEL: 5 NG/ML Performed By: #### C BCDF #### [address] [id number] METHADONE SCREEN,U Negative Normal NEGATIVE [facility] Comment on above: Result Comment: CUTO FF LEVEL: 150 NG/ML The metabolite J-riqtr-skwgcivtlynqji (LAAM) is not detected by this method in concentrations that would be found in the urine of patients on LAAM therapy. Performed By: #### C BCDF #### [address] [id number] OPIATES SCREEN,U Negative Normal NEGATIVE [facility] Comment on above: Result Comment: CUTO FF LEVEL: 300 NG/ML The opiate screen does not detect fentanyl, meperidine, or tramadol. Oxycodone is not consistently detected (refer to Oxycodone Screen, Urine result). Performed By: #### C BCDF #### [address] [id number] OXYCODONE SCREEN,U Negative Normal NEGATIVE [facility] Comment on above: Result Comment: CUTO FF LEVEL: 100 NG/ML This test will accurately detect both oxycodone and oxymorphone. Performed By: #### C BCDF #### [address] [id number] PCP SCREEN,U Negative Normal NEGATIVE [facility] Comment on above: Result Comment: CUTO FF LEVEL: 25 NG/ML Cross-reactivity has been reported with dextromethorphan. Performed By: #### C BCDF #### [address] [id number] HEPATIC FUNCTION PANELon Albumin [Mass/Vol] 4.3 g/dL Normal 3.4 - 5.0 [facility] Comment on above: Performed By: #### H EPFP #### [address] [id number] ALP [Catalytic activity/Vol] 88 U/L Normal 33 - 12 0 [facility] Comment on above: Performed By: #### H EPFP #### [address] [id number] ALT [Catalytic activity/Vol] 33 U/L Normal 10 - 52 [facility] Comment on above: Result Comment: Yumi ents treated with Sulfasalazine may generate falsely decreased results for ALT. Performed By: #### H EPFP #### [address] [id number] AST [Catalytic activity/Vol] 29 U/L Normal 9 - 39 [facility] Comment on above: Performed By: #### H EPFP #### [address] [id number] Bilirubin [Mass/Vol] 0.4 mg/dL Normal 0.0 - 1.2 [facility] Comment on above: Performed By: #### H EPFP #### [address] [id number] Bilirubin.indirect [Mass/Vol] 0.1 mg/dL Normal 0.0 - 0.3 [facility] Comment on above: Performed By: #### H EPFP #### [address] [id number] Protein [Mass/Vol] 7.2 g/dL Normal 6.4 - 8.2 [facility] Comment on above: Performed By: #### H EPFP #### [address] [id number] INFLUENZA A/B, COVID 2019 PC R,SYMPTOMATICon 08-13-2022 INFLUENZA A, PCR Not detected Normal Not Detected [facility] Comment on above: Result Comment: Resp iratory virus testing is performed routinely by PCR for Influenza A/B and RSV. Not Detected results do not preclude Influenza A/B or RSV infections since the adequacy of sample collection or low viral burden may impact the clinical sensitivity of this test method. Performed By: #### C OINP ####[address] [place], [place] [id number] INFLUENZA B, PCR Not detected Normal Not Detected [facility] Comment on above: Result Comment: Resp iratory virus testing is performed routinely by PCR for Influenza A/B and RSV. Not Detected results do not preclude Influenza A/B or RSV infections since the adequacy of sample collection or low viral burden may impact the clinical sensitivity of this test method. Performed By: #### C OINP ####[address] [id number] SARS-CoV-2 (COVID-19) RNA NESSA+probe Ql (Unsp spec) Not detected Normal Not Detected [facility] Comment on above: Result Comment: . This test has received [facility] Emergency Use Authorization (EUA) and has been verified by [facility]. This test is only authorized for the duration of time that circumstances exist to justify the authorization of the emergency use of in vitro diagnostic tests for the detection of SARS-CoV-2 virus and/or diagnosis of COVID-19 infection under section 564(b)(1) of the Act, 21 U.S.C. 360bbb-3(b)(1), unless the authorization is terminated or revoked sooner. [facility] is certified under CLIA-88 as qualified to perform high complexity testing. Testing is performed in the [facility] laboratory located at [address] [place] [id number]. SARS-CoV-2/Flu/RSV Multiplex Test: Fact sheet for providers: https://www.fda.gov/media/769288/download Fact sheet for patients: https://www.fda.gov/media/771957/download Performed By: #### C OINP ####[address] [place], [place] [id number] Lab Specimen Source Nasal, Nasopharyngeal Normal [facility] Comment on above: Performed By: #### C OINP ####[facility] [place], [place] [id number] MAGNESIUMon 08-13-2022 Magnesium [Mass/Vol] 1.65 mg/dL Normal 1.60 - 2.40 [facility] Comment on above: Performed By: #### H EPFP #### [facility] [address] [place], [place] [id number] Order Reconciliationon 08-13 Order Reconciliation Page 1 Admission Reconciliation Document Reconciliation Type: Admission requested on behalf of Nessa Diamond (Physician) done by Nessa Diamond) Admission - Reconciliation: 13-Aug-2022 16:21 by: Nessa Diamond) Home MedicationsEnteredLast Dose TakenReconciled with current Order Reconciliation Comment/ Additional Information doxepin 25 mg oral capsule 1 cap(s) orally once (at bedtime)13-Aug-2022 Doxepin Capsule (SINEQUAN)DOSE = 25 mg Oral At Bedtimedoxepin 25 mg oral capsule continued as the inpatient order Doxepin folic acid 1 mg oral tablet 1 tab(s) orally once a day [id number] Reviewed and Held gabapentin 300 mg oral capsule 1 cap(s) orally 4 times a [id number] Gabapentin CapsuleDOSE = 300 mg Oral 4 Times a Daygabapentin 300 mg oral capsule continued as the inpatient order Gabapentin hydrOXYzine pamoate 50 mg oral capsule 1 cap(s) orally 4 times a day, As Needed - for [id number] hydrOXYzine Pamoate (VISTARIL) CapsuleDOSE = 50 mg Oral Every 6 Hours, PRN for anxietyhydrOXYzine pamoate 50 mg oral capsule continued as the inpatient order hydrOXYzine Pamoate (VISTARIL) Multiple Vitamins with Minerals oral tablet 1 tab(s) orally once a day [id number] Reviewed and Held nicotine 14 mg/24 hr transdermal film, extended release 1 patch transdermal every 24 hours smoking [id number] Reviewed and Held OLANZapine 10 mg oral tablet 1 tab(s) orally once (at bedtime)13-Aug-2022 OLANZapine - PEDS Tablet (ZYPREXA)DOSE = 10 mg Oral At BedtimeOLANZapine 10 mg oral tablet continued as the inpatient order OLANZapine - PEDS OLANZapine 2.5 mg oral tablet 1 tab(s) orally 2 times a day - (Every 1 day at 08:00, 12:00 ) 13-Aug-2022 OLANZapine Tablet (ZYPREXA)DOSE = 2.5 mg Oral Every 12 HoursOLANZapine 2.5 mg oral tablet continued as the inpatient order OLANZapine paliperidone 3 mg oral tablet, extended release 1 tab(s) orally once a day (in the evening)13-Aug-2022 Reviewed and Held paliperidone 6 mg oral tablet, extended release 1 tab(s) orally once a day (in the morning)13-Aug-2022 Reviewed and Held pantoprazole 40 mg oral delayed release tablet 1 tab(s) orally once a day GERD 13-Aug-2022 Reviewed and Held thiamine 100 mg oral tablet 1 tab(s) orally once a day [id number] Reviewed and Held topiramate 25 mg oral tablet 1 tab(s) orally 2 times a [id number] Topiramate Tablet (TOPAMAX)DOSE = 25 mg Oral 2 Times a Daytopiramate 25 mg oral tablet continued as the inpatient order Topiramate Documentation of outpatient medication history is incomplete. Additional Current Orders Folic Acid TabletDOSE = 1 mg Oral Daily LORazepam Injectable (ATIVAN)DOSE = 0.5 mg IntraVenous Push Every 2 Hours, PRN CIWA score 6-7 or HR > 100 LORazepam Injectable (ATIVAN)DOSE = 1 mg IntraVenous Push Every 2 Hours, PRN CIWA score 8-9 LORazepam Injectable (ATIVAN)DOSE = 2 mg IntraVenous Push Every 2 Hours, PRN CIWA score greater than 9 Multivitamin with Minerals TabletDOSE = 1 tablet(s) Oral Daily Thiamine TabletDOSE = 100 mg Oral Daily Normal [facility] Patient Profile - Adult v2on 08-13-2022 Patient Profile - Adult v2 Profile: Initial Info: How to be AddressedJoseph or Tee(1) Spoken Language PreferredEnglish (1) Source of Informationpatient Stated Reason for Admissionsuicidal thoughts and insomnia Primary Contact Name and NumberEstefany Richard [phone] KAMLESH Wants Family/Rep Notified of Admissionyes, primary contact Notify PCPnotify PCP Informed of Patient Visiting Rightsyes Limitations on Visitors/Phone Callsonly immediate family may visit Temporary Family Living Arrangements (While Hospitalized)none [facility] To in Past [facility] Employment Statusunemployed(2) Current or Previous Servicenone(2) Patient Belongingsremains with patient Patient Belongings Remaining with Patientclothing Medications Brought to Hospitalno General Health: Blood Avoidance/Restrictionsnone(1) Previous Transfusion Reactionnot applicable Sleep Aids/Routinenone Weight in kg86 kilogram(s)(3) Weight in abz511.5 pound(s) Weight Methodstated Scale Typebed Height in cm170.1 centimeter(s)(3) Height in feet5 feet Height in inches6.97 inch(es) Height Methodstated BMI (kg/m2)29.722 square meter RSP Based Care: Recent Change in Mood/Behaviorconcentration; irritability; recent memory; withdrawn or quiet; learning abilities; decision making judgment; attention span Major Change/Loss/Stressor/Fearsdeath of a loved one Behaviors When Feeling Stressed/Fearfulwife lost in may How would you like to participate in your carefollow what the doctors order What is the number one concern for you during this hospitalizationtry to fix problem What is the most important thing we can do to support you during this hospitalizationhelp me to get better Is there anything we need to know to best care for you6 screws, 2 rods and three plates in neck which causes me headaches Substance: Smoking Statusheavy user (uses >30 cig/day, OR >1.5 ppd, OR >3 cans/pouches loose leaf tobacco per week, OR >1.5 vape pods per day) (4) Tobacco Cessation Education (provide if tobacco use within the last 12 mos)yes Alcohol Usedaily, history of abuse(4) Drug Useoccasionally (4) Drug 2 Usedenies (4) Substance Commentmeth and alcohol daily. patient would like nicotine gum Health Mgmt: Symptoms/Conditions Managed at Homebehavioral health; cardiovascular; musculoskeletal; neurological Behavioral Health Symptoms/Conditionsbipolar affective disorder; depression; anxiety; phobia(s); substance use; post traumatic stress Behavioral Health Managementnot managed Behavioral Health Symptoms/Conditions Commentphobia paranoia, ptsd from patient's lifestyle Cardiovascular Symptoms/Conditionshypertension Cardiovascular Management Strategiesmedication therapy Cardiovascular Managementmanaged Musculoskeletal Managementmanaged Musculoskeletal Symptoms/Conditions Comment`6 screws, three plate, two rods in neck construction accident 2006 but surgery in 2018 Neurological Managementnot managed Neurological Symptoms/Conditions CommentDaily meth user, 1/5 a day of brigitte Pineda and 12 beers Barriers to Managing Healthlack of housing; lack of transportation Relationship/Environ: Significant Exposurenone Resource/Environmental Concernsfinancial; home accessibility; reliable transportation Financial Concernsunemployed; medicine, unable to afford Transportation Concernscar, none Primary Source of Support/Comfortsignificant other Lives Withfriend(s) Living Arrangementshouse Services Anticipated at Transitioncase manager hi; rehabilitation services Anticipated Transition Toshelter Significant IndicatorsComplete Information Review: Allergies, Home Meds and Significant Events have been Reviewed and Verified with Patient/Familyyes ALLERGY, INTOLERANCE, ADVERSE EVENT: Allergies: No Known Allergies: Active Electronic Signatures: Kate Laboy (SHELIA) (Signed 13-Aug-2022 18:14) Authored: Initial Info, General Health, RSP Based Care, Substance, Health Mgmt, Relationship/Environ, Additional Information Last Updated: 13-Aug-2022 18:14 by Kate Laboy (SHELIA) References: 1. Data Referenced From Patient Profile - Adult v2 17-Jun-2022 04:17 2. Data Referenced From Psychiatric Assessment - Social Work 30-Jun-2022 23:25 3. Data Referenced From 1. Vital Signs 13-Aug-2022 11:58 4. Data Referenced From History and Physical 13-Aug-2022 16:02 Normal [facility] Provider Note - ED v3on 02-0 Provider Note - ED v3 Provider Note: Chart Review: ED NOTES ED NOTES: The patient is a 52-year-old male who presents to the emergency room with chief complaint of depression with suicidal ideations. Patient states his plan is to overdose on his pills. Patient also states he is going through alcohol withdrawal. Patient drinks large amounts of alcohol daily, his last drink was yesterday. He reports seeing hallucinations of shadows on the wall. He denies any auditory hallucinations, denies any headache. He denies any chest pain, palpitations, cough or shortness of breath. Patient has been admitted before for psychiatric issues and was placed on Zyprexa. The patient has a known history of bipolar disorder, denies any fevers, chills, night sweats, nausea vomiting or diarrhea. He denies any homicidal ideations. Patient also states he has been suffering from insomnia for the past few days due to his hallucinations. Past medical history bipolar affective disorder, hypertension, alcoholism with alcohol abuse, drug abuse and anxiety. 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 Family history was reviewed and is noncontributory Allergies no known drug allergies, no known food allergies or intolerances HISTORY OF PRESENTING ILLNESS EDWARD is a 52 year old Male and was seen by me at 13-Aug-2022 12:04 for a chief complaint of psychiatric evaluation (Pt reports SI, VH, and AH. Pt also reports he's withdrawing from alcohol. Pt's plan is to either take pills or blow my head off. )(1). The historian is the patient. Triage Information: Most recent Vital Sign Value Date Temp (F): 97.7 08-13-2022 11:58 Temp (C): 36.5 08-13-2022 11:58 Heart Rate (beats/min): 97 08-13-2022 11:58 Respirations (breaths/min): 18 08-13-2022 11:58 SpO2 (%): 98 08-13-2022 11:58 BP Systolic (mm Hg): 203 08-13-2022 11:58 BP Diastolic (mm Hg): 101 08-13-2022 11:58 PAST MEDICAL HISTORY PSYCHOSOCIAL SCREENING: YES: concerns for safety at home, feelings of depression and feels like hurting self NO: feels like hurting others CURRENT OR FORMER SUBSTANCE USE: Tobacco/Nicotine Use: heavy user (uses >30 cig/day, OR >1.5 ppd, OR >3 cans/pouches loose leaf tobacco per week, OR >1.5 vape pods per day) Alcohol Use: daily and history of abuse Drug Use: occasionally,Drug 2 Use: denies ALLERGIES/INTOLERANCES: No Known Allergies HEALTH HISTORY: No documented data. OUTPATIENT MEDICATIONS: Home Medications Review Status for Reconciliation: Complete Med Status: Patient Currently Takes Medications Drug Name: doxepin 25 mg oral capsule Instructions: 1 cap(s) orally once (at bedtime) Drug Name: OLANZapine 10 mg oral tablet Instructions: 1 tab(s) orally once (at bedtime) Drug Name: OLANZapine 2.5 mg oral tablet Instructions: 1 tab(s) orally 2 times a day - (Every 1 day at 08:00, 12:00 ) Drug Name: pantoprazole 40 mg oral delayed release tablet Instructions: 1 tab(s) orally once a day GERD Drug Name: nicotine 14 mg/24 hr transdermal film, extended release Instructions: 1 patch transdermal every 24 hours smoking cessation Drug Name: Multiple Vitamins with Minerals oral tablet Instructions: 1 tab(s) orally once a day supplement Drug Name: folic acid 1 mg oral tablet Instructions: 1 tab(s) orally once a day supplement Drug Name: thiamine 100 mg oral tablet Instructions: 1 tab(s) orally once a day supplement Drug Name: gabapentin 300 mg oral capsule Instructions: 1 cap(s) orally 4 times a day Drug Name: hydrOXYzine pamoate 50 mg oral capsule Instructions: 1 cap(s) orally 4 times a day, As Needed - for anxiety Drug Name: paliperidone 3 mg oral tablet, extended release Instructions: 1 tab(s) orally once a day (in the evening) Drug Name: topiramate 25 mg oral tablet Instructions: 1 tab(s) orally 2 times a day Drug Name: paliperidone 6 mg oral tablet, extended release Instructions: 1 tab(s) orally once a day (in the morning) SIGNIFICANT EVENTS: Past Medical History Description:Bipolar Affective Disorder (BAD) Description:Hypertension (HTN) Description:Alcoholism Description:DRUG ABUSE Description:Anxiety Past Surgical History Description:NECK SURGERY REVIEW OF SYSTEMS CONSTITUTIONAL: POSITIVE for: weakness Negative for: anorexia and fever EYES: Negative for: pain and vision changes ENMTEars: Negative for: hearing loss and pain Nose: Negative for: congestion and discharge Mouth/Teeth: Negative for: tooth caries and toothache Throat/Neck: Negative for: throat pain, neck lumps, neck pain, neck stiffness and swollen glands CARDIOVASCULAR: POSITIVE for: palpitations Negative for: bradycardia and chest pain RESPIRATORY: Negative for: cough, dyspnea and wheezing GASTROINTESTINAL: (more content not included)... Normal [facility] Risk Screen - Adult Emergenc yon 08-13-2022 Risk Screen - Adult Emergency Preferred Language: Preferred Language: Preferred Language for Discussing Health Care (patient/designee)Tajik Patient Preferred Pharmacy: Patient Preferred Pharmacy Statement: I have reviewed and updated the patient's preferred pharmacy selection for today's visit. Advanced Directives: Advance Directive/DNRno Family Violence Adult: Abuse Screen: Are you or have you been threatened or abused physically, emotionally, or sexually by anyoneno Learning Assessment (Patient): Learning Assessment (Patient): Patient is Able to be Assessed for Learningyes Factors Influencing Readiness to Learnacuteness of illness Factors that Impact Ability to Learnacuteness of illness Devices/Methods Used to Communicatenone Learning Preferencesaudio Cultural Considerationsnone Developmental Considerationsnone Sabianist Considerationsnone Learning Assessment (Other Learner): Learning Assessment (Other Learner): Other learner availableno Pressure Injury/TB/Substance: Pressure Injury: Do you have a coughno Smoking Statusheavy user (uses >30 cig/day, OR >1.5 ppd, OR >3 cans/pouches loose leaf tobacco per week, OR >1.5 vape pods per day) (1) Tobacco Cessation Education (provide if tobacco use within the last 12 mos) patient declined Alcohol Usedaily, history of abuse(1) Drug Useoccasionally (1) Drug 2 Usedenies (1) Admission Risk Screen: Significant IndicatorsComplete CAGE: CAGE: Is this an injured patient at a Trauma Center ([facility]/[place]): no Electronic Signatures: Carlita Olivas (SHELIA) (Signed 13-Aug-2022 12:58) Authored: Preferred Language, Patient Preferred Pharmacy, Advanced Directives, Family Violence Adult, Learning Assessment (Patient), Learning Assessment (Other Learner), Pressure Injury/TB/Substance, Pressure Injury, CAGE Last Updated: 13-Aug-2022 12:58 by Carlita Olivas (SHELIA) References: 1. Data Referenced From Provider Note - ED v3 13-Aug-2022 12:48 Normal [facility] TSHon 08-13-2022 TSH Qn 2.00 m[IU]/L Normal 0.44 - 3.98 [facility] Comment on above: Result Comment: TSH testing is performed using different testing methodology at [facility] than at other [facility]. Direct result comparisons should only be made within the same method. Performed By: #### H EPFP #### [facility] [address] [place], [place] [id number] URINALYSISon 08-13-2022 Appearance (U) CLEAR Normal CLEAR [facility] Comment on above: Performed By: #### U A ####[address] [phone] Bilirubin Ql (U) Negative Normal NEGATIVE [facility] Comment on above: Performed By: #### U A ####[address] [phone] Color (U) STRAW Normal STRAW,YELLOW [facility] Comment on above: Performed By: #### U A ####[address] [id number] Glucose Ql (U) Negative Normal NEGATIVE [facility] Comment on above: Performed By: #### U A ####[address] [id number] Hemoglobin Ql (U) Negative Normal NEGATIVE [facility] Comment on above: Performed By: #### U A ####[address] [phone] Ketones Ql (U) Negative Normal NEGATIVE [facility] Comment on above: Performed By: #### U A ####[address] [phone] Leukocyte esterase Test stri p Ql (U) Negative Normal NEGATIVE [facility] Comment on above: Performed By: #### U A ####[address] [phone] Nitrite Ql (U) Negative Normal NEGATIVE [facility] Comment on above: Performed By: #### U A ####[facility] [place], [place] [phone] pH (U) 7.0 [pH] Normal 5.0 - 8.0 [facility] Comment on above: Performed By: #### U A ####[facility] [place], [place] [phone] Protein Ql (U) Negative Normal NEGATIVE [facility] Comment on above: Performed By: #### U A ####[facility] [place], [place] [phone] Specific gravity (U) [Rel density] 1.004 Low 1 .005 - 1.035 [facility] Comment on above: Performed By: #### U A ####[facility] [place], [place] [phone] Urobilinogen (U) [Mass/Vol] mg/dL Normal 0.0 - 1. 9 [facility] Comment on above: Performed By: #### U A ####[facility] [place], [place] [phone] Valproic Acid /Depakene Leve darlene 08-07-2022 Valproic Acid 79.7 ug/mL Normal 50.0-100.0 [facility] Comment on above: Performed By: #### C OVRG #### [facility] [address] [place] [address] Acetaminophenon 08-02-2022 Acetaminophen [Mass/Vol] ug/mL Low 10-30 [facility] Comment on above: Performed By: #### C OVRG #### [facility] [address] [place] [address] Alcoholon 08-02-2022 Blood Alcohol Concentration Not indicated Normal [facility] Comment on above: Performed By: #### A LCOH #### [facility] [address] [place] [address] Ethanol [Mass/Vol] mg/dL Normal [facility] Comment on above: Performed By: #### A LCOH #### [facility] [address] [place] [address] CBC With Platelet and Differ entialon 08-02-2022 RBC morphology finding Nom (Bld) Normal Normal [facility] Comment on above: Performed By: #### A LCOH #### [facility] [address] [place] [address] Basophils (Bld) [#/Vol] 0.0 10*3/uL Normal 0.0-0.2 [facility] Comment on above: Performed By: #### A LCOH #### [facility] [address] [place] [address] Eosinophils (Bld) [#/Vol] 0.0 10*3/uL Normal 0.0-0.7 [facility] Comment on above: Performed By: #### A LCOH #### [facility] [address] [place] [address] Lymphocytes (Bld) [#/Vol] 1.9 10*3/uL Normal 1.0-4.8 [facility] Comment on above: Performed By: #### A LCOH #### [facility] [address] [place] [address] Lymphocytes/100 WBC (Bld) 20.0 % Normal [facility] Comment on above: Performed By: #### A LCOH #### [facility] [address] [place] [address] Monocytes (Bld) [#/Vol] 1.2 10*3/uL Critically high 0.2-0. 8 [facility] Comment on above: Performed By: #### A LCOH #### [facility] [address] [place] [address] Monocytes/100 WBC (Bld) 12.5 % Normal [facility] Comment on above: Performed By: #### A LCOH #### [facility] [address] [place] [address] Myelocytes 1 % Normal [facility] Comment on above: Performed By: #### A LCOH #### [facility] [address] [place] [address] Neutrophils (Bld) [#/Vol] 6.3 10*3/uL Normal 1.4-6.5 [facility] Comment on above: Performed By: #### A LCOH #### [facility] [address] [place] [address] Neutrophils/100 WBC (Bld) 66.0 % Normal [facility] Comment on above: Performed By: #### A LCOH #### [facility] [address] [place] [address] Platelet Slide Review Normal Normal [facility] Comment on above: Performed By: #### A LCOH #### [facility] [address] [place] [address] Basophils/100 WBC (Bld) 0.8 % Normal [facility] Comment on above: Performed By: #### A LCOH #### [facility] [address] [place] [address] Eosinophils/100 WBC (Bld) 0.7 % Normal [facility] Comment on above: Performed By: #### A LCOH #### [facility] [address] [place] [address] Erythrocyte distribution wid th (RBC) [Ratio] 14.2 % Normal 11.5-14.5 [facility] Comment on above: Performed By: #### A LCOH #### [facility] [address] [place] [address] Hematocrit (Bld) [Volume fraction] 48.0 % Normal 42.0-52.0 [facility] Comment on above: Performed By: #### A LCOH #### [facility] [address] [place] [address] Hemoglobin (Bld) [Mass/Vol] 16.0 g/dL Normal 14.0-18. 0 [facility] Comment on above: Performed By: #### A LCOH #### [facility] [address] [place] [address] MCH (RBC) [Entitic mass] 30.4 pg Normal 27.0-31.3 [facility] Comment on above: Performed By: #### A LCOH #### [facility] [address] [place] [address] MCHC 33.3 % Normal 33.0-37.0 [facility] Comment on above: Performed By: #### A LCOH #### [facility] [address] [place] [address] MCV (RBC) [Entitic vol] 91.1 fL Normal 79.0-92.2 [facility] Comment on above: Performed By: #### A LCOH #### [facility] [address] [place] [address] Platelets (Bld) [#/Vol] 293 10*3/uL Normal 130-400 [facility] Comment on above: Performed By: #### A LCOH #### [facility] [address] [place] [address] RBC (Bld) [#/Vol] 5.27 10*6/uL Normal 4.70-6.10 [facility] Comment on above: Performed By: #### A LCOH #### [facility] [address] [place] [address] WBC (Bld) [#/Vol] 9.4 10*3/uL Normal 4.8-10.8 [facility] Comment on above: Performed By: #### A LCOH #### [facility] [address] [place] [address] COVID-19on 08-02-2022 SARS-CoV-2 (COVID-19) RNA NESSA+probe Ql (Unsp spec) Not detected Normal Not Detect [facility] Comment on above: Result Comment: Rapi d NAAT: Negative results should be treated as presumptive and, if inconsistent with clinical signs and symptoms or necessary for patient management, should be tested with an alternative molecular assay. Negative results do not preclude SARS-CoV-2 infection and should not be used as the sole basis for patient management decisions. This test has been authorized by the FDA under an Emergency Use Authorization (EUA) for use by authorized laboratories. Fact sheet for Healthcare Providers: https://www.fda.gov/media/396782/download Fact sheet for Patients: https://www.fda.gov/media/371189/download METHODOLOGY: Isothermal Nucleic Acid Amplification Performed By: #### A LCOH #### [facility] [address] [place] [address] Comprehensive Metabolic Pane darlene 08-02-2022 Albumin [Mass/Vol] 4.3 g/dL Normal 3.5-4.6 [facility] Comment on above: Performed By: #### C OVRG #### [facility] [address] [place] [address] ALP [Catalytic activity/Vol] 125 U/L Critically high 35 -104 [facility] Comment on above: Performed By: #### C OVRG #### [facility] [address] [place] [address] ALT [Catalytic activity/Vol] 37 U/L Normal 0-41 [facility] Comment on above: Performed By: #### C OVRG #### [facility] [address] [place] [address] Anion gap [Moles/Vol] 13 mmol/L Normal 9-15 [facility] Comment on above: Performed By: #### C OVRG #### [facility] [address] [place] [address] AST [Catalytic activity/Vol] 26 U/L Normal 0-40 [facility] Comment on above: Performed By: #### C OVRG #### [facility] [address] [place] [address] Bilirubin [Mass/Vol] 0.3 mg/dL Normal 0.2-0.7 [facility] Comment on above: Performed By: #### C OVRG #### [facility] [address] [place] [address] Calcium [Mass/Vol] 10.0 mg/dL Critically high 8.5-9.9 [facility] Comment on above: Performed By: #### C OVRG #### [facility] [address] [place] [address] Chloride [Moles/Vol] 104 mmol/L Normal 95-107 [facility] Comment on above: Performed By: #### C OVRG #### [facility] [address] [place] [address] CO2 [Moles/Vol] 23 mmol/L Normal 20-31 [facility] Comment on above: Performed By: #### C OVRG #### [facility] [address] [place] [address] Creatinine [Mass/Vol] 1.01 mg/dL Normal 0.70-1.20 [facility] Comment on above: Performed By: #### C OVRG #### [facility] [address] [place] [address] GFR >60.0 Normal >60 [facility] Comment on above: Result Comment: Ilana atric calculator link https://www.kidney.org/professionals/kdoqi/gfr_calculatorped Effective Apr 14, 2022 These results are not intended for use in patients <18 years of age. eGFR results are calculated without a race factor using the 2020 CKD-EPI equation. Careful clinical correlation is recommended, particularly when comparing to results calculated using previous equations. The CKD-EPI equation is less accurate in patients with extremes of muscle mass, extra-renal metabolism of creatinine, excessive creatinine ingestion, or following therapy that affects renal tubular secretion. Performed By: #### C OVRG #### [facility] [address] [place] [address] Globulin (S) [Mass/Vol] 2.6 g/dL Normal 2.3-3.5 [facility] Comment on above: Performed By: #### C OVRG #### [facility] [address] [place] [address] Glucose [Mass/Vol] 79 mg/dL Normal 70-99 [facility] Comment on above: Performed By: #### C OVRG #### [facility] [address] [place] [address] Potassium [Moles/Vol] 4.6 mmol/L Normal 3.4-4.9 [facility] Comment on above: Performed By: #### C OVRG #### [facility] [address] [place] [address] Protein [Mass/Vol] 6.9 g/dL Normal 6.3-8.0 [facility] Comment on above: Performed By: #### C OVRG #### [facility] [address] [place] [address] Sodium [Moles/Vol] 140 mmol/L Normal 135-144 [facility] Comment on above: Performed By: #### C OVRG #### [facility] [address] [place] [address] Urea nitrogen [Mass/Vol] 17 mg/dL Normal 6-20 [facility] Comment on above: Performed By: #### C OVRG #### [facility] [address] [place] [address] Creatine Kinaseon 08-02-2022 CK [Catalytic activity/Vol] 113 U/L Normal 0-190 [facility] Comment on above: Performed By: #### C OVRG #### [facility] [address] [place] [address] Lipid Panelon 08-02-2022 Cholesterol [Mass/Vol] 154 mg/dL Normal 0-199 [facility] Comment on above: Result Comment: ATP III Cholesterol classification is Desirable. Performed By: #### C OVRG #### [facility] [address] [place] [address] Cholesterol in HDL [Mass/Vol] 59 mg/dL Normal 40-59 [facility] Comment on above: Result Comment: ATP III HDL Cholesterol Classification is Desirable. Expected Values: Males: >55 = No Risk 35-55 = Moderate Risk <35 = High Risk Females: >65 = No Risk 45-65 = Moderate Risk <45 = High Risk NCEP Guidelines: Third Report November 2000 >59 = negative risk factor for CHD <40 = major risk factor for CHD Performed By: #### C OVRG #### [facility] [address] [place] [address] Cholesterol in LDL [Mass/Vol] 39 mg/dL Normal 0-129 [facility] Comment on above: Result Comment: ATP III LDL Classification is Optimal. Performed By: #### C OVRG #### [facility] [address] [place] [address] Triglyceride [Mass/Vol] 279 mg/dL Critically high 0-150 [facility] Comment on above: Result Comment: ATP III Triglycerides Classification is High. Performed By: #### C OVRG #### [facility] [address] [place] [address] Salicylateon 08-02-2022 Salicylate <0.3 Low 15.0-30.0 [facility] Comment on above: Result Comment: Anti -pyretic: 3.0-10.0 mg/dL Anti-inflammatory: 15.0-30.0 mg/dL Toxic: >30.0 mg/dL Performed By: #### C OVRG #### [facility] [address] [place] [address] TSH w/out Reflexon TSH w/out Reflex 1.910 uIU/mL Normal 0.440-3.86 [facility] Comment on above: Performed By: #### T SH #### [facility] [address] [place] [address] UR Drugs of Abuse Panelon Drug Screen Comment see below Normal [facility] Comment on above: Result Comment: This method is a screening test to detect only these drug classes as part of a medical workup. Confirmatory testing by another method should be ordered if clinically indicated. Performed By: #### C OVRG #### [facility] [address] [place] [address] UR Amphetamines Screen Negative Normal Negative < [facility] Comment on above: Performed By: #### C OVRG #### [facility] [address] [place] [address] UR Barbiturates Screen Negative Normal Negative < [facility] Comment on above: Performed By: #### C OVRG #### [facility] [address] [place] [address] UR Benzo Screen Negative Normal Negative < [facility] Comment on above: Performed By: #### C OVRG #### [facility] [address] [place] [address] UR Cannabinoids Screen Negative Normal Negative < [facility] Comment on above: Performed By: #### C OVRG #### [facility] [address] [place] [address] UR Cocaine Screen Negative Normal Negative < [facility] Comment on above: Performed By: #### C OVRG #### [facility] [address] [place] [address] UR Fentanyl Screen Negative Normal Negative < [facility] Comment on above: Performed By: #### C OVRG #### [facility] [address] [place] [address] UR Methadone Screen Negative Normal Negative < [facility] Comment on above: Performed By: #### C OVRG #### [facility] [address] [place] [address] UR Opiates Screen Negative Normal Negative < [facility] Comment on above: Performed By: #### C OVRG #### [facility] [address] [place] [address] UR Oxycodone Screen Negative Normal Negative < [facility] Comment on above: Performed By: #### C OVRG #### [facility] [address] [place] [address] UR PCP Screen Negative Normal Negative < [facility] Comment on above: Performed By: #### C OVRG #### [facility] [address] [place] [address] UR Propoxyphene Screen Negative Normal Negative < [facility] Comment on above: Performed By: #### C OVRG #### [facility] [address] [place] [address] Urinalysis, reflex to cultur jasmeet 08-02-2022 Bilirubin Ql (U) Negative Normal Negative [facility] Comment on above: Performed By: #### U AR #### [facility] [address] [place] [address] Clarity (U) Clear Normal [facility] Comment on above: Performed By: #### U AR #### [facility] [address] [place] [address] Color (U) Yellow Normal Straw/Iredell [facility] Comment on above: Performed By: #### U AR #### [facility] [address] [place] [address] Glucose Ql (U) Negative Normal Negative [facility] Comment on above: Performed By: #### U AR #### [facility] [address] [place] [address] Hemoglobin Ql (U) Negative Normal Negative [facility] Comment on above: Performed By: #### U AR #### [facility] [address] [place] [address] Ketones Ql (U) Negative Normal Negative [facility] Comment on above: Performed By: #### U AR #### [facility] [address] [place] [address] Leukocyte esterase Test stri p Ql (U) Negative Normal Negative [facility] Comment on above: Performed By: #### U AR #### [facility] [address] [place] [address] Nitrite Ql (U) Negative Normal Negative [facility] Comment on above: Performed By: #### U AR #### [facility] [address] [place] [address] pH (U) 7.0 [pH] Normal 5.0-9.0 [facility] Comment on above: Performed By: #### U AR #### [facility] [address] [place] [address] Protein Ql (U) Negative Normal Negative [facility] Comment on above: Performed By: #### U AR #### [facility] [address] [place] [address] Specific gravity (U) [Rel density] 1.009 Normal 1.005-1.03 [facility] Comment on above: Performed By: #### U AR #### [facility] [address] [place] [address] Urine Reflexed to Culture Not Indicated Normal [facility] Comment on above: Performed By: #### U AR #### [facility] [address] [place] [address] Urobilinogen Qn (U) 0.2 {Amisha'U}/dL Normal < 2.0 [facility] Comment on above: Performed By: #### U AR #### [facility] [address] [place] [address] Acetaminophenon 07-27-2022 Acetaminophen [Mass/Vol] ug/mL Low 10-30 [facility] Comment on above: Performed By: #### A CETM #### [facility] [address] [place] [address] Acetaminophen Levelon 2022 Acetaminophen Level <5 Low 10 - 30 ug/mL [facility] Alcoholon 07-27-2022 Blood Alcohol Concentration Not indicated Normal [facility] Comment on above: Performed By: #### A LCOH #### [facility] [address] [place] [address] Ethanol [Mass/Vol] mg/dL Normal [facility] Comment on above: Performed By: #### A LCOH #### [facility] [address] [place] [address] CBC With Platelet and Differ entialon 07-27-2022 Basophils (Bld) [#/Vol] 0.0 10*3/uL Normal 0.0-0.2 [facility] Comment on above: Performed By: #### C BCWD #### [facility] [address] [place] [address] Basophils/100 WBC (Bld) 0.5 % Normal [facility] Comment on above: Performed By: #### C BCWD #### [facility] [address] [place] [address] Eosinophils (Bld) [#/Vol] 0.1 10*3/uL Normal 0.0-0.7 [facility] Comment on above: Performed By: #### C BCWD #### [facility] [address] [place] [address] Eosinophils/100 WBC (Bld) 1.0 % Normal [facility] Comment on above: Performed By: #### C BCWD #### [facility] [address] [place] [address] Erythrocyte distribution wid th (RBC) [Ratio] 14.2 % Normal 11.5-14.5 [facility] Comment on above: Performed By: #### C BCWD #### [facility] [address] [place] [address] Hematocrit (Bld) [Volume fraction] 47.6 % Normal 42.0-52.0 [facility] Comment on above: Performed By: #### C BCWD #### [facility] [address] [place] [address] Hemoglobin (Bld) [Mass/Vol] 16.4 g/dL Normal 14.0-18. 0 [facility] Comment on above: Performed By: #### C BCWD #### [facility] [address] [place] [address] Lymphocytes (Bld) [#/Vol] 1.5 10*3/uL Normal 1.0-4.8 [facility] Comment on above: Performed By: #### C BCWD #### [facility] [address] [place] [address] Lymphocytes/100 WBC (Bld) 18.0 % Normal [facility] Comment on above: Performed By: #### C BCWD #### [facility] [address] [place] [address] MCH (RBC) [Entitic mass] 31.4 pg Critically high 27.0-3 1.3 [facility] Comment on above: Performed By: #### C BCWD #### [facility] [address] [place] [address] MCHC 34.4 % Normal 33.0-37.0 [facility] Comment on above: Performed By: #### C BCWD #### [facility] [address] [place] [address] MCV (RBC) [Entitic vol] 91.5 fL Normal 79.0-92.2 [facility] Comment on above: Performed By: #### C BCWD #### [facility] [address] [place] [address] Monocytes (Bld) [#/Vol] 1.3 10*3/uL Critically high 0.2-0. 8 [facility] Comment on above: Performed By: #### C BCWD #### [facility] [address] [place] [address] Monocytes/100 WBC (Bld) 15.7 % Normal [facility] Comment on above: Performed By: #### C BCWD #### [facility] [address] [place] [address] Neutrophils (Bld) [#/Vol] 5.3 10*3/uL Normal 1.4-6.5 [facility] Comment on above: Performed By: #### C BCWD #### [facility] [address] [place] [address] Neutrophils/100 WBC (Bld) 64.8 % Normal [facility] Comment on above: Performed By: #### C BCWD #### [facility] [address] [place] [address] Platelets (Bld) [#/Vol] 296 10*3/uL Normal 130-400 [facility] Comment on above: Performed By: #### C BCWD #### [facility] [address] [place] [address] RBC (Bld) [#/Vol] 5.21 10*6/uL Normal 4.70-6.10 [facility] Comment on above: Performed By: #### C BCWD #### [facility] [address] [place] [address] WBC (Bld) [#/Vol] 8.3 10*3/uL Normal 4.8-10.8 [facility] Comment on above: Performed By: #### C BCWD #### [facility] [address] [place] [address] CBC with Auto Differentialon 07-27-2022 Basophils (Bld) [#/Vol] 0.0 10*3/uL 0.0 - 0.2 K /uL [facility] Basophils/100 WBC (Bld) 0.5 % [facility] Eosinophils (Bld) [#/Vol] 0.1 10*3/uL 0.0 - 0.7 K/uL [facility] Eosinophils/100 WBC (Bld) 1 % [facility] Hematocrit (Bld) [Volume fraction] 47.6 % 42.0 - 52.0 % [facility] Hemoglobin (Bld) [Mass/Vol] 16.4 g/dL 14.0 - 1 8.0 g/dL [facility] Interpretation and review of laboratory results Abnormal [facility] Lymphocytes (Bld) [#/Vol] 1.5 10*3/uL 1.0 - 4.8 K/uL [facility] Lymphocytes/100 WBC (Bld) 18.0 % [facility] MCH (RBC) [Entitic mass] 31.4 pg High 27.0 - 31.3 pg [facility] MCHC (RBC) [Mass/Vol] 34.4 % 33.0 - 37.0 % [facility] MCV (RBC) [Entitic vol] 91.5 fL 79.0 - 92.2 fL [facility] Monocytes (Bld) [#/Vol] 1.3 10*3/uL High 0.2 - 0.8 K /uL [facility] Monocytes/100 WBC (Bld) 15.7 % [facility] Neutrophils Absolute 5.3 K/uL 1.4 - 6.5 K/uL [facility] Neutrophils/100 WBC (Bld) 64.8 % [facility] Platelet distribution width (Bld) [Ratio] 14.2 % 11.5 - 14.5 % [facility] Platelets (Bld) [#/Vol] 296 10*3/uL 130 - 400 K /uL [facility] RBC (Bld) [#/Vol] 5.21 10*6/uL [facility] WBC (Bld) [#/Vol] 8.3 10*3/uL 4.8 - 10.8 K/uL [facility] CKon 07-27-2022 CK [Catalytic activity/Vol] 195 U/L High 0 - 190 U/L [facility] COVID-19on 07-27-2022 SARS-CoV-2 (COVID-19) RNA NESSA+probe Ql (Unsp spec) Not detected Normal Not Detect [facility] Comment on above: Result Comment: Jayna kirkpatrick NAAT: Negative results should be treated as presumptive and, if inconsistent with clinical signs and symptoms or necessary for patient management, should be tested with an alternative molecular assay. Negative results do not preclude SARS-CoV-2 infection and should not be used as the sole basis for patient management decisions. This test has been authorized by the FDA under an Emergency Use Authorization (EUA) for use by authorized laboratories. Fact sheet for Healthcare Providers: https://www.fda.gov/media/750672/download Fact sheet for Patients: https://www.fda.gov/media/382954/download METHODOLOGY: Isothermal Nucleic Acid Amplification Performed By: #### C OVRG #### [facility] [address] [place] [address] COVID-19, Rapidon 07-27-2022 SARS-CoV-2 (COVID-19) RNA NESSA+probe Ql (Unsp spec) Not detected Not Detected [facility] Comment on above: Rapid NAAT: Negative results should be treated as presumptive and, if inconsistent with clinical signs and symptoms or necessary for patient management, should be tested with an alternative molecular assay. Negative results do not preclude SARS-CoV-2 infection and should not be used as the sole basis for patient management decisions. This test has been authorized by the FDA under an Emergency Use Authorization (EUA) for use by authorized laboratories. Fact sheet for Healthcare Providers: https://www.fda.gov/media/196237/download Fact sheet for Patients: https://www.fda.gov/media/943529/download METHODOLOGY: Isothermal Nucleic Acid Amplification [facility] Comprehensive Metabolic Pane darlene 07-27-2022 Albumin [Mass/Vol] 4.3 g/dL Normal 3.5-4.6 [facility] Comment on above: Performed By: #### U AR #### [facility] [address] [place] [address] ALP [Catalytic activity/Vol] 103 U/L Normal 35-104 [facility] Comment on above: Performed By: #### U AR #### [facility] [address] [place] [address] ALT [Catalytic activity/Vol] 50 U/L Critically high 0- 41 [facility] Comment on above: Performed By: #### U AR #### [facility] [address] [place] [address] Anion gap [Moles/Vol] 16 mmol/L Critically high 9-15 [facility] Comment on above: Performed By: #### U AR #### [facility] [address] [place] [address] AST [Catalytic activity/Vol] 37 U/L Normal 0-40 [facility] Comment on above: Performed By: #### U AR #### [facility] [address] [place] [address] Bilirubin [Mass/Vol] 0.5 mg/dL Normal 0.2-0.7 [facility] Comment on above: Performed By: #### U AR #### [facility] [address] [place] [address] Calcium [Mass/Vol] 8.8 mg/dL Normal 8.5-9.9 [facility] Comment on above: Performed By: #### U AR #### [facility] [address] [place] [address] Chloride [Moles/Vol] 102 mmol/L Normal 95-107 [facility] Comment on above: Performed By: #### U AR #### [facility] [address] [place] [address] CO2 [Moles/Vol] 20 mmol/L Normal 20-31 [facility] Comment on above: Performed By: #### U AR #### [facility] [address] [place] [address] Creatinine [Mass/Vol] 1.06 mg/dL Normal 0.70-1.20 [facility] Comment on above: Performed By: #### U AR #### [facility] [address] [place] [address] GFR >60.0 Normal >60 [facility] Comment on above: Result Comment: Ilana atric calculator link https://www.kidney.org/professionals/kdoqi/gfr_calculatorped Effective Apr 14, 2022 These results are not intended for use in patients <18 years of age. eGFR results are calculated without a race factor using the 2020 CKD-EPI equation. Careful clinical correlation is recommended, particularly when comparing to results calculated using previous equations. The CKD-EPI equation is less accurate in patients with extremes of muscle mass, extra-renal metabolism of creatinine, excessive creatinine ingestion, or following therapy that affects renal tubular secretion. Performed By: #### U AR #### [facility] [address] [place] [address] Globulin (S) [Mass/Vol] 2.8 g/dL Normal 2.3-3.5 M [facility] Comment on above: Performed By: #### U AR #### [facility] [address] [place] [address] Glucose [Mass/Vol] 87 mg/dL Normal 70-99 [facility] Comment on above: Performed By: #### U AR #### [facility] [address] [place] [address] Potassium [Moles/Vol] 4.4 mmol/L Normal 3.4-4.9 [facility] Comment on above: Performed By: #### U AR #### [facility] [address] [place] [address] Protein [Mass/Vol] 7.1 g/dL Normal 6.3-8.0 [facility] Comment on above: Performed By: #### U AR #### [facility] [address] [place] [address] Sodium [Moles/Vol] 138 mmol/L Normal 135-144 [facility] Comment on above: Performed By: #### U AR #### [facility] [address] [place] [address] Urea nitrogen [Mass/Vol] 15 mg/dL Normal 6-20 [facility] Comment on above: Performed By: #### U AR #### [facility] [address] [place] [address] Albumin [Mass/Vol] 4.3 g/dL 3.5 - 4.6 g/dL [facility] N [facility] ALP (Bld) [Catalytic activity/Vol] 103 U/L 35 - 104 U/L [facility] ALT [Catalytic activity/Vol] 50 U/L High 0 - 41 U/L [facility] Anion gap [Moles/Vol] 16 mmol/L High [facility] AST [Catalytic activity/Vol] 37 U/L 0 - 40 U/L [facility] Bilirubin [Mass/Vol] 0.5 mg/dL 0.2 - 0.7 mg/dL [facility] Calcium [Mass/Vol] 8.8 mg/dL 8.5 - 9.9 mg/dL B ON [facility] Chloride [Moles/Vol] 102 mmol/L [facility] CO2 [Moles/Vol] 20 mmol/L [facility] Creatinine [Mass/Vol] 1.06 mg/dL 0.70 - 1.20 mg /dL [facility] GFR/1.73 sq M.predicted MDRD (S/P/Bld) [Vol rate/Area] 60 - PINF [facility] Comment on above: Pediatric calculator link https://www.kidney.org/professionals/kdoqi/gfr_calculatorped Effective Apr 14, 2022 These results are not intended for use in patients <18 years of age. eGFR results are calculated without a race factor using the 2020 CKD-EPI equation. Careful clinical correlation is recommended, particularly when comparing to results calculated using previous equations. The CKD-EPI equation is less accurate in patients with extremes of muscle mass, extra-renal metabolism of creatinine, excessive creatinine ingestion, or following therapy that affects renal tubular secretion. Globulin (S) [Mass/Vol] 2.8 g/dL 2.3 - 3.5 g/ dL [facility] Glucose [Mass/Vol] 87 mg/dL 70 - 99 mg/dL [facility] Potassium [Moles/Vol] 4.4 mmol/L [facility] Protein [Mass/Vol] 7.1 g/dL 6.3 - 8.0 g/dL [facility] Sodium [Moles/Vol] 138 mmol/L [facility] Urea nitrogen (BldV) [Mass/Vol] 15 mg/dL 6 - 20 mg/dL [facility] Creatine Kinaseon 07-27-2022 CK [Catalytic activity/Vol] 195 U/L Critically high 0-1 90 [facility] Comment on above: Performed By: #### C PK #### [facility] [address] [place] [address] Ethanolon 07-27-2022 Ethanol Lvl <10 mg/dL [facility] Ethanol percent Not indicated G/dL [facility] Lipid Panelon 07-27-2022 Cholesterol [Mass/Vol] 166 mg/dL Normal 0-199 [facility] Comment on above: Result Comment: ATP III Cholesterol classification is Desirable. Performed By: #### L IPID #### [facility] [address] [place] [address] Cholesterol in HDL [Mass/Vol] 70 mg/dL Critically high 4 0-59 [facility] Comment on above: Result Comment: ATP III HDL Cholesterol Classification is high. Expected Values: Males: >55 = No Risk 35-55 = Moderate Risk <35 = High Risk Females: >65 = No Risk 45-65 = Moderate Risk <45 = High Risk NCEP Guidelines: Third Report November 2000 >59 = negative risk factor for CHD <40 = major risk factor for CHD Performed By: #### L IPID #### [facility] [address] [place] [address] Cholesterol in LDL [Mass/Vol] 76 mg/dL Normal 0-129 [facility] Comment on above: Result Comment: ATP III LDL Classification is Optimal. Performed By: #### L IPID #### [facility] [address] [place] [address] Triglyceride [Mass/Vol] 100 mg/dL Normal 0-150 M [facility] Comment on above: Result Comment: ATP III Triglycerides Classification is Normal. Performed By: #### L IPID #### [facility] [address] [place] [address] Cholesterol [Mass/Vol] 166 mg/dL 0 - 199 mg/dL [facility] Comment on above: ATP III Cholesterol classification is Desirable. Cholesterol in HDL [Mass/Vol] 70 mg/dL High 40 - 5 9 mg/dL [facility] Comment on above: ATP III HDL Choleste rol Classification is high. Expected Values: Males: >55 = No Risk 35-55 = Moderate Risk <35 = High Risk Females: >65 = No Risk 45-65 = Moderate Risk <45 = High Risk NCEP Guidelines: Third Report November 2000 >59 = negative risk factor for CHD <40 = major risk factor for CHD Cholesterol in LDL [Mass/Vol] 76 mg/dL 0 - 12 9 mg/dL [facility] Comment on above: ATP III LDL Classifi cation is Optimal. Triglyceride [Mass/Vol] 100 mg/dL 0 - 150 mg/d L [facility] Comment on above: ATP III Triglyceride s Classification is Normal. No Panel Informationon 07-27 Interpretation and review of laboratory results Abnormal [facility] Interpretation and review of laboratory results Abnormal [facility] Salicylateon 07-27-2022 Salicylate <0.3 Low 15.0-30.0 [facility] Comment on above: Result Comment: Anti -pyretic: 3.0-10.0 mg/dL Anti-inflammatory: 15.0-30.0 mg/dL Toxic: >30.0 mg/dL Performed By: #### A LCOH #### [facility] [address] [place] [address] Salicylate, Serum <0.3 Low 15.0 - 30.0 mg/dL [facility] Comment on above: Anti-pyretic: 3.0-10 .0 mg/dL Anti-inflammatory: 15.0-30.0 mg/dL Toxic: >30.0 mg/dL TSHon 07-27-2022 TSH Qn 2.090 m[IU]/L [facility] TSH w/out Reflexon TSH w/out Reflex 2.090 uIU/mL Normal 0.440-3.86 [facility] Comment on above: Performed By: #### U AR #### [facility] [address] [place] [address] UR Drugs of Abuse Panelon Drug Screen Comment see below Normal [facility] Comment on above: Result Comment: This method is a screening test to detect only these drug classes as part of a medical workup. Confirmatory testing by another method should be ordered if clinically indicated. Performed By: #### C OVRG #### [facility] [address] [place] [address] UR Amphetamines Screen Negative Normal Negative < [facility] Comment on above: Performed By: #### C OVRG #### [facility] [address] [place] [address] UR Barbiturates Screen Negative Normal Negative < [facility] Comment on above: Performed By: #### C OVRG #### [facility] [address] [place] [address] UR Benzo Screen Negative Normal Negative < [facility] Comment on above: Performed By: #### C OVRG #### [facility] [address] [place] [address] UR Cannabinoids Screen Negative Normal Negative < [facility] Comment on above: Performed By: #### C OVRG #### [facility] [address] [place] [address] UR Cocaine Screen Negative Normal Negative < [facility] Comment on above: Performed By: #### C OVRG #### [facility] [address] [place] [address] UR Fentanyl Screen Negative Normal Negative < [facility] Comment on above: Performed By: #### C OVRG #### [facility] [address] [place] [address] UR Methadone Screen Negative Normal Negative < [facility] Comment on above: Performed By: #### C OVRG #### [facility] [address] [place] [address] UR Opiates Screen Negative Normal Negative < [facility] Comment on above: Performed By: #### C OVRG #### [facility] [address] [place] [address] UR Oxycodone Screen Negative Normal Negative < [facility] Comment on above: Performed By: #### C OVRG #### [facility] [address] [place] [address] UR PCP Screen Negative Normal Negative < [facility] Comment on above: Performed By: #### C OVRG #### [facility] [address] [place] [address] UR Propoxyphene Screen Negative Normal Negative < [facility] Comment on above: Performed By: #### C OVRG #### [facility] [address] [place] [address] Urinalysis with Reflex to Cu ltureon 07-27-2022 Bilirubin Urine Negative Negative [facility] Blood, Urine Negative Negative [facility] Clarity, UA Clear Clear [facility] Color, UA Yellow Straw/Yellow [facility] Glucose, Ur Negative Negative mg/dL [facility] Ketones Ql (U) Negative Negative mg/dL [facility] Leukocyte esterase Test stri p Ql (U) Negative Negative [facility] Nitrite, Urine Negative Negative [facility] pH, UA 7.0 5.0 - 9.0 [facility] Protein, UA Negative Negative mg/dL [facility] Specific [place], UA 1.010 1.005 - 1.030 [facility] Urine Reflex to Culture Not Indicated [facility] Urobilinogen, Urine 0.2 NINF [facility] Urinalysis, reflex to cultur jasmeet 07-27-2022 Bilirubin Ql (U) Negative Normal Negative [facility] Comment on above: Performed By: #### C OVRG #### [facility] [address] [place] [address] Clarity (U) Clear Normal [facility] Comment on above: Performed By: #### C OVRG #### [facility] [address] [place] [address] Color (U) Yellow Normal [facility] Comment on above: Performed By: #### C OVRG #### [facility] [address] [place] [address] Glucose Ql (U) Negative Normal Negative [facility] Comment on above: Performed By: #### C OVRG #### [facility] [address] [place] [address] Hemoglobin Ql (U) Negative Normal Negative [facility] Comment on above: Performed By: #### C OVRG #### [facility] [address] [place] [address] Ketones Ql (U) Negative Normal Negative [facility] Comment on above: Performed By: #### C OVRG #### [facility] [address] [place] [address] Leukocyte esterase Test stri p Ql (U) Negative Normal Negative [facility] Comment on above: Performed By: #### C OVRG #### [facility] [address] [place] [address] Nitrite Ql (U) Negative Normal Negative [facility] Comment on above: Performed By: #### C OVRG #### [facility] [address] [place] [address] pH (U) 7.0 [pH] Normal 5.0-9.0 [facility] Comment on above: Performed By: #### C OVRG #### [facility] [address] [place] [address] Protein Ql (U) Negative Normal Negative [facility] Comment on above: Performed By: #### C OVRG #### [facility] [address] [place] [address] Specific gravity (U) [Rel density] 1.010 Normal 1.005-1.03 [facility] Comment on above: Performed By: #### C OVRG #### [facility] [address] [place] [address] Urine Reflexed to Culture Not Indicated Normal [facility] Comment on above: Performed By: #### C OVRG #### [facility] [address] [place] [address] Urobilinogen Qn (U) 0.2 {Aimsha'U}/dL Normal < 2.0 [facility] Comment on above: Performed By: #### C OVRG #### [facility] [address] [place] [address] Urine Drug Screenon 07-27-19 23 Amphetamine Screen, Urine Negative Negative < 1000 ng/mL [facility] Barbiturate Screen, Ur Negative Negative < 20 0 ng/mL [facility] Benzodiazepine Screen, Urine Negative Negativ e < 200 ng/mL [facility] Cannabinoid Scrn, Ur Negative Negative < 50 n g/mL [facility] Cocaine Metabolite Screen, Urine Negative Negative < 300 ng/mL [facility] Drug Screen Comment: see below [facility] Comment on above: This method is a scr eening test to detect only these drug classes as part of a medical workup. Confirmatory testing by another method should be ordered if clinically indicated. FENTANYL SCREEN, URINE Negative Negative < 50 ng/mL [facility] Methadone Screen, Urine Negative Negative <30 0 ng/mL [facility] Opiate Scrn, Ur Negative Negative < 300 ng/mL [facility] [employer] [facility] Oxycodone Urine Negative Negative <100 ng/mL [facility] PCP Screen, Urine Negative Negative < 25 ng/m L [facility] Propoxyphene Scrn, Ur Negative Negative <300 ng/mL [facility] ECG 12 lead ECGon 07-18-[address] [facility] [place] [address] [place] [address] Electrocardiograph Report Signed Patient: Edward Crowder MR#: [id number] : 1970 Acct:[id number] Age/Sex: 52 / M ADM Date: 07/17/22 Loc: ER Room: Type: [facility] ER Attending Dr: Ordering Provider: Tessie Freitas APRN Date of Service: 07/17/2212/02/2306 ECG/ECG 12 lead ECG: Psychiatric Symptoms Copies to: Test Reason : Blood Pressure : 120/082 mmHG Vent. Rate : 078 BPM Atrial Rate : 078 BPM P-R Int : 160 ms QRS Dur : 086 ms QT Int : 398 ms P-R-T Axes : 061 090 079 degrees QTc Int : 453 ms Sinus rhythm with premature ventricular complexes or fusion complexes Rightward axis Borderline ECG When compared with ECG of 10-JUL-2022 14:13, Previous ECG has undetermined rhythm, needs review ST no longer elevated in Inferior leads T wave amplitude has decreased in Inferior leads Confirmed by Rik Lemos DO ([id number]) on 07/18/2022 1:47:03 AM Referred By: Electronically Signed By:Rik Lemos DO Transcribed By: MUS Signed By Rik Lemos DO 07/18 0147 Normal [facility] Albumin [Mass/volume] in Ser um or PlasmaOrdered By: Tessie Freitas on 07-17-2022 Albumin [Mass/Vol] 4.4 g/dL 3.2-5.5 [facility] Amphetamine Screen Ql (U)Ord ered By: Tessie Freitas on 07-17-2022 Amphetamines Ql (U) Negative Negative [facility] Automated urine color determ inationOrdered By: Tessie Freitas on 07-17-2022 Color (U) Yellow Normal Yellow [facility] Comment on above: Order Comment: Name Collection Type:: Clean-Voided Midstream Performed By: #### C MP, CBC, ACET, TOSHIA, ETOH #### [facility] [address] [place], [place] [id number] [place] Barbiturates [Presence] in U rineOrdered By: Tessie Freitas on 07-17-2022 Barbiturates Ql (U) Negative Negative [facility] Basophils Auto (Bld) [#/Vol] Ordered By: Tessie Freitas on 07-17-2022 Basophils (Bld) [#/Vol] 0.1 10*3/uL 0.0-0.2 [facility] Basophils/100 WBC Auto (Bld) Ordered By: Tessie Freitas on 07-17-2022 Basophils/100 WBC (Bld) 0.9 % . [facility] Benzodiazepines [Presence] i n UrineOrdered By: Tessie Freitas on 07-17-2022 Benzodiazepines Ql (U) Negative Negative [facility] Bilirubin Test strip Ql (U)O rdered By: Tessie Freitas on 07-17-2022 Bilirubin Ql (U) Negative Negative [facility] COVID-19 Antigenon 3 COVID-19 Antigen Healthcare Worker?: N Reference Range: Negative Negative results, from patients with symptom onset beyond five days, should be treated as presumptive and confirmation with a molecular assay, if necessary, for patient management, may be performed. Negative results do not rule out COVID-19 and should not be used as the sole basis for treatment or patient management decisions, including infection control decisions. Negative results should be considered in the context of a patient's recent exposures, history and the presence of clinical signs and symptoms consistent with COVID-19. The Neyda SARS Antigen WARNER does not differentiate between SARS-CoV and SARS-CoV-2. This test was developed and its performance characteristic determined by [employer] and validated at [facility]. This test has not been FDA cleared or approved. This test has been authorized by FDA under an Emergency Use Authorization (EUA). This test has been validated in accordance with the FDA's Guidance Document (Policy for Diagnostics Testing in Laboratories Certified to Perform High Complexity Testing under CLIA prior to Emergency Use Authorization for Coronavirus Disease-2019 during the Public Health Emergency) issued on October 13, 2019. This test is only authorized for the duration of time the declaration that circumstances exist justifying the authorization of the emergency use of in vitro diagnostic tests for detection of SARS-CoV-2 virus and/or diagnosis of COVID-19 infection under section 564(b)(1) of the Act, 21 U.S.C. 360bbb-3(b)(1), unless the authorization is terminated or revoked sooner. SARS-CoV+SARS-CoV-2 (COVID-19) Ag [Presence] in Respiratory specimen by Rapid immunoassay Negative for SARS Antigen by WARNER PERFORMED BY: [place] [address] PATHOLOGIST ALGOLOGIST TIMUR PHILLIPS M.D. Normal [facility] Comment on above: Performed By: #### C MP, CBC, ACET, TOSHIA, ETOH #### [facility] [address] [place] [address] COVID-19 SOFIAOrdered By: Ramona Freitas on 07-17-2022 SARS-CoV+SARS-CoV-2 (COVID-1 9) Ag IA.rapid Ql (Resp) Negative Negative [facility] Comment on above: This is a duplicate Neyda SARS Antigen (WARNER) result to be used for statistical tracking purpose only. Cannabinoids [Presence] in U rine by Screen methodOrdered By: Tessie Freitas on 07-17-2022 Cannabinoids Screen Ql (U) Negative Negative [facility] Comment on above: These are unconfirme d results and should not be used for legal purposes. Drug Cut-Off Concentration: AMPH 1000 ng/mL TOMÁS 200 ng/mL SWETHA 200 ng/mL COCM 300 ng/mL OP 300 ng/mL PCP 25 ng/mL THC 20 ng/mL Complete Blood Count Auto Di ffon 07-17-2022 Basophils (Bld) [#/Vol] 0.1 10*3/uL Normal 0.0-0.2 [facility] Comment on above: Result Comment: PERF ORMED BY: [place] [address] PATHOLOGIST ALGOLOGIST TIMUR PHILLIPS M.D. Performed By: #### E JOHN, CBC, CMP #### [facility] [address] [place] [address] Basophils/100 WBC (Bld) 0.9 % Normal . [facility] Comment on above: Performed By: #### E JOHN, CBC, CMP #### [address] Eosinophils (Bld) [#/Vol] 0.0 10*3/uL Normal 0.0-0.45 [facility] Comment on above: Performed By: #### E JOHN, CBC, CMP #### [address] Eosinophils/100 WBC (Bld) 0.4 % Normal . [facility] Comment on above: Performed By: #### E JOHN, CBC, CMP #### [address] Erythrocyte distribution wid th (RBC) [Ratio] 14.3 % Normal 12.0-14.8 [facility] Comment on above: Performed By: #### E JOHN, CBC, CMP #### [address] Hematocrit (Bld) [Volume fraction] 48.4 % Normal 38.8-50.0 [facility] Comment on above: Performed By: #### E JOHN, CBC, CMP #### [address] Hemoglobin (Bld) [Mass/Vol] 16.2 g/dL Normal 13.0-17. 0 [facility] Comment on above: Performed By: #### E JOHN, CBC, CMP #### [address] Lymphocytes (Bld) [#/Vol] 1.5 10*3/uL Normal 1.00-4.8 [facility] Comment on above: Performed By: #### E JOHN, CBC, CMP #### [address] Lymphocytes/100 WBC (Bld) 17.9 % Normal . [facility] Comment on above: Performed By: #### E JOHN, CBC, CMP #### [address] MCH (RBC) [Entitic mass] 30.3 pg Normal 27.5-35.2 [facility] Comment on above: Performed By: #### E JOHN, CBC, CMP #### [address] MCV (RBC) [Entitic vol] 90.5 fL Normal 83.5-101 [facility] Comment on above: Performed By: #### E JOHN, CBC, CMP #### [address] Mean Corpuscular HGB Conc 33.5 g/dL Normal 32.5-35.6 [facility] Comment on above: Performed By: #### E JOHN CBC, CMP #### [address] Monocytes (Bld) [#/Vol] 1.1 10*3/uL High 0.0-0.8 [facility] Comment on above: Performed By: #### E JOHN, CBC, CMP #### [address] Monocytes/100 WBC (Bld) 16.01 % Normal 0.00-20.00 [facility] Comment on above: Performed By: #### E JOHN, CBC, CMP #### [address] Monocytes/100 WBC (Bld) 12.6 % Normal . [facility] Comment on above: Performed By: #### E JOHN, CBC, CMP #### [address] Neutrophils (Bld) [#/Vol] 5.9 10*3/uL Normal 1.8-7.7 [facility] Comment on above: Performed By: #### E JOHN, CBC, CMP #### [address] Neutrophils/100 WBC (Bld) 68.2 % Normal . [facility] Comment on above: Performed By: #### E JOHN, CBC, CMP #### [address] NRBC% 0.1 /100{WBC} Normal 0-0.5 [facility] Comment on above: Performed By: #### E JOHN CBC, CMP #### [address] Platelet mean volume (Bld) [Entitic vol] 7.4 fL Normal 6.6-10.1 [facility] Comment on above: Performed By: #### E JOHN, CBC, CMP #### [address] Platelets (Bld) [#/Vol] 379 10*3/uL Normal 150-450 [facility] Comment on above: Performed By: #### E JOHN CBC, CMP #### [address] RBC (Bld) [#/Vol] 5.34 10*6/uL Normal 3.90-5.60 [facility] Comment on above: Performed By: #### E JOHN CBC, CMP #### [address] WBC (Bld) [#/Vol] 8.6 10*3/uL Normal 4.1-10.5 [facility] Comment on above: Performed By: #### E JOHN CBC, CMP #### [address] Comprehensive Metabolic Pane darlene 07-17-2022 Albumin [Mass/Vol] 4.4 g/dL Normal 3.2-5.5 [facility] Comment on above: Performed By: #### E JOHN CBC, CMP #### [address] Albumin/Globulin [Mass ratio] 1.5 {ratio} Normal [facility] Comment on above: Performed By: #### E JOHN, CBC, CMP #### [address] ALP [Catalytic activity/Vol] 106 U/L High 32-92 [facility] Comment on above: Performed By: #### E JOHN CBC, CMP #### [facility] [address] ALT [Catalytic activity/Vol] 36 U/L Normal 10-60 [facility] Comment on above: Performed By: #### E JOHN CBC, CMP #### [facility] [address] Anion gap [Moles/Vol] 13.5 mmol/L Normal 6.0-15.0 [facility] Comment on above: Performed By: #### E JOHN CBC, CMP #### [address] AST [Catalytic activity/Vol] 26 U/L Normal 10-42 [facility] Comment on above: Performed By: #### E JOHN CBC, CMP #### [address] Bilirubin [Mass/Vol] 0.9 mg/dL Normal 0.3-1.2 [facility] Comment on above: Performed By: #### E JOHN CBC, CMP #### [address] Calcium [Mass/Vol] 9.1 mg/dL Normal 8.2-10.2 [facility] Comment on above: Performed By: #### E JOHN CBC, CMP #### [facility] [address] [place] [address] [place] Chloride [Moles/Vol] 103 mmol/L Normal 95-114 [facility] Comment on above: Performed By: #### E JOHN CBC, CMP #### [facility] [address] [place] [address] [place] CO2 [Moles/Vol] 22.6 mmol/L Normal 22.0-30.0 [facility] Comment on above: Performed By: #### E JOHN CBC, CMP #### [facility] [address] [place] [address] [place] Creatinine [Mass/Vol] 1.28 mg/dL High 0.64-1.27 [facility] Comment on above: Performed By: #### E BUCKY LOPEZ, CMP #### [address] Creatinine Clr Calc Pharmacy 71.47 [facility] Comment on above: Result Comment: PERF ORMED BY: [place] [address] PATHOLOGIST ALGOLOGIST TIMUR PHILLIPS M.D. Performed By: #### E JOHN CBC, CMP #### [address] Estimated GFR ( José > 60 [facility] Comment on above: Result Comment: GFR estimated reference range: According to KDOQI guidelines, <60 ml/min/1.73m2 is sufficient to diagnose a patient with chronic kidney disease. Performed By: #### E BUCKY LOPEZ, CMP #### [address] Estimated GFR (Non- Am 59 [facility] Comment on above: Performed By: #### E BUCKY LOPEZ, CMP #### [address] Globulin (S) [Mass/Vol] 3.0 g/dL Normal [facility] Comment on above: Performed By: #### E JOHN CBC, CMP #### [address] Glucose [Mass/Vol] 103 mg/dL High 70-100 [facility] Comment on above: Result Comment: [place] Glucose Reference Range is dependent on time and content of last meal. Glucose of more than 200 mg/dL in a nonstressed, ambulatory subject supports the diagnosis of Diabetes Mellitus. ADA recommended reference range Performed By: #### E JOHN, CBC, CMP #### [address] Potassium [Moles/Vol] 4.1 mmol/L Normal 3.5-5.1 [facility] Comment on above: Performed By: #### E JOHN, CBC, CMP #### [facility] [address] [place] [address] [place] Protein [Mass/Vol] 7.4 g/dL Normal 6.1-7.9 [facility] Comment on above: Performed By: #### E JOHN, CBC, CMP #### [facility] [address] [place] [address] [place] Sodium [Moles/Vol] 135 mmol/L Low 136-146 [facility] Comment on above: Performed By: #### E JOHN, CBC, CMP #### [facility] [address] [place] [address] [place] Urea nitrogen [Mass/Vol] 18 mg/dL Normal - [facility] Comment on above: Performed By: #### E JOHN, CBC, CMP #### [facility] [address] [place] [address] [place] Creatinine and Glomerular fi ltration rate.predicted panel (S/P/Bld)Ordered By: Tessie Freitas on 07-17-2022 Creatinine [Mass/Vol] 1.28 mg/dL 0.64-1.27 [facility] Drug Screen,Urineon 07-17-19 Amphetamine Screen,Urine Negative Normal Negative [facility] Comment on above: Performed By: #### C MP, CBC, ACET, TOSHIA, ETOH #### [facility] [address] [place] [address] [place] Barbiturate Screen,Urine Negative Normal Negative [facility] Comment on above: Performed By: #### C MP, CBC, ACET, TOSHIA, ETOH #### [facility] [address] [place] [id number] [place] Benzodiazepines Screen,Urine Negative Normal Negativ e [facility] Comment on above: Performed By: #### C MP, CBC, ACET, TOSHIA, ETOH #### [facility] [address] [place] [id number] [place] Cannabinoid Screen,Urine Negative Normal Negative [facility] Comment on above: Result Comment: Thes e are unconfirmed results and should not be used for legal purposes. Drug Cut-Off Concentration: AMPH 1000 ng/mL TOMÁS 200 ng/mL SWETHA 200 ng/mL COCM 300 ng/mL OP 300 ng/mL PCP 25 ng/mL THC 20 ng/mL PERFORMED BY: [place] [address] PATHOLOGIST ALGOLOGIST TIMUR PHILLIPS M.D. Performed By: #### C MP, CBC, ACET, TOSHIA, ETOH #### [facility] [address] [place] [address] Cocaine Screen,Urine Negative Normal Negative [facility] Comment on above: Performed By: #### C MP, CBC, ACET, TOSHIA, ETOH #### [address] Opiate Screen,Urine Negative Normal Negative [facility] Comment on above: Performed By: #### C MP, CBC, ACET, TOSHIA, ETOH #### [address] Phencyclidine Screen,Urine Negative Normal Negative [facility] Comment on above: Performed By: #### C MP, CBC, ACET, TOSHIA, ETOH #### [facility] [address] [place] [address] Eosinophils Auto (Bld) [#/Vo l]Ordered By: Tessie Freitas on 07-17-2022 Eosinophils (Bld) [#/Vol] 0.0 10*3/uL 0.0-0.45 [facility] Eosinophils/100 WBC Auto (Bl d)Ordered By: Tessie Freitas on 07-17-2022 Eosinophils/100 WBC (Bld) 0.4 % . [facility] Erythrocyte distribution wid th Auto (RBC) [Ratio]Ordered By: Tessie Freitas on 07-17-2022 Erythrocyte distribution wid th (RBC) [Ratio] 14.3 % 12.0-14.8 [facility] Estimated glomerular filtrat ion rate (GFR) non- AmericanOrdered By: Tessie Freitas on 07-17-2022 GFR/1.73 sq M.predicted judy g non-blacks MDRD (S/P/Bld) [Vol rate/Area] 59 mL/Min [facility] Ethyl Alcohol Profileon Ethanol [Mass/Vol] mg/dL Normal [facility] Comment on above: Performed By: #### E JOHN, CBC, CMP #### [facility] [address] Percent Ethanol Not performed Normal [facility] Comment on above: Result Comment: PERF ORMED BY: [facility] [address] [facility] [place] [address] PATHOLOGIST ALGOLOGIST TIMUR PHILLIPS M.D. Performed By: #### E JOHN, CBC, CMP #### [facility] [address] Globulin Calc (S) [Mass/Vol] Ordered By: Tessie Freitas on 07-17-2022 Globulin (S) [Mass/Vol] 3.0 g/dL [facility] Hematocrit Auto (Bld) [Volum e fraction]Ordered By: Tessie Freitas on 07-17-2022 Hematocrit (Bld) [Volume fraction] 48.4 % 3 8.8-50.0 [facility] Hemoglobin [Mass/volume] in BloodOrdered By: Tessie Freitas on 07-17-2022 Hemoglobin (Bld) [Mass/Vol] 16.2 g/dL 13.0-17. 0 [facility] Ketones Auto test strip (U) [Mass/Vol]Ordered By: Tessie Freitas on 07-17-2022 Ketones (U) [Mass/Vol] Negative Negative [facility] - Drug toxicology Ordered By: Tessie Freitas on 07-17-2022 Opiates Ql (U) Negative Negative [facility] Leukocytes [#/volume] correc bia for nucleated erythrocytes in Blood by Automated counOrdered By: Tessie Freitas on 07-17-2022 WBC corrected for nucl RBC A uto (Bld) [#/Vol] 8.6 10*3/uL 4.1-10.5 [facility] Lymphocytes Auto (Bld) [#/Vo l]Ordered By: Tessie Freitas on 07-17-2022 Lymphocytes (Bld) [#/Vol] 1.5 10*3/uL 1.00-4.8 [facility] Lymphocytes/100 WBC Auto (Bl d)Ordered By: Tessie Freitas on 07-17-2022 Lymphocytes/100 WBC (Bld) 17.9 % . [facility] MCH Auto (RBC) [Entitic mass ]Ordered By: Tessie Freitas on 07-17-2022 MCH (RBC) [Entitic mass] 30.3 pg 27.5-35.2 [facility] MCHC Auto (RBC) [Mass/Vol]Or dered By: Tessie Freitas on 07-17-2022 MCHC (RBC) [Mass/Vol] 33.5 g/dL 32.5-35.6 [facility] MCV Auto (RBC) [Entitic vol] Ordered By: Tessie Freitas on 07-17-2022 MCV (RBC) [Entitic vol] 90.5 fL 83.5-101 F [facility] Monocyte distribution width [Entitic volume] in Blood by AutomatedOrdered By: Tessie Freitas on 07-17-2022 Monocyte distribution width Auto (Bld) [Entitic vol] 16.01 % 0.00-20.00 [facility] Monocytes Auto (Bld) [#/Vol] Ordered By: Tessie Freitas on 07-17-2022 Monocytes (Bld) [#/Vol] 1.1 10*3/uL 0.0-0.8 [facility] Monocytes/100 WBC Auto (Bld) Ordered By: Tessie Freitas on 07-17-2022 Monocytes/100 WBC (Bld) 12.6 % . [facility] Neutrophils Auto (Bld) [#/Vo l]Ordered By: Tessie Freitas on 07-17-2022 Neutrophils (Bld) [#/Vol] 5.9 10*3/uL 1.8-7.7 [facility] Neutrophils/100 WBC Auto (Bl d)Ordered By: Tessie Freitas on 07-17-2022 Neutrophils/100 WBC (Bld) 68.2 % . [facility] Nitrite Test strip Ql (U)Ord ered By: Tessie Freitas on 01-05-2023 Nitrite Ql (U) Negative Negative [facility] No Panel InformationOrdered By: Tessie Freitas on 07-17-2022 SARS Antigen (LFIA) [facility] SARS Antigen (LFIA) [facility] Estimated GFR () > 60 mL/Min [facility] Comment on above: GFR estimated refere nce range: According to KDOQI guidelines, <60 ml/min/1.73m2 is sufficient to diagnose a patient with chronic kidney disease. Pharmacy Creatinine Clearance (Chem 71.47 [facility] Nucleated erythrocytes [Pres ence] in Blood by Automated countOrdered By: Tessie Freitas on 07-17-2022 Nucleated RBC Auto Ql (Bld) 0.1 /100{WBC} 0-0.5 [facility] Phencyclidine Screen Ql (U)O rdered By: Tessie Freitas on 07-17-2022 Phencyclidine Ql (U) Negative Negative [facility] Platelet mean volume Auto (B ld) [Entitic vol]Ordered By: Tessie Freitas on 07-17-2022 Platelet mean volume (Bld) [Entitic vol] 7.4 fL 6.6-10.1 [facility] Platelets Auto (Bld) [#/Vol] Ordered By: Tessie Freitas on 07-17-2022 Platelets (Bld) [#/Vol] 379 10*3/uL 150-450 [facility] Protein Auto test strip (U) [Mass/Vol]Ordered By: Tessie Freitas on 07-17-2022 Protein (U) [Mass/Vol] Negative Negative [facility] Protein [Mass/volume] in Ser um or PlasmaOrdered By: Tessie Freitas on 07-17-2022 Protein [Mass/Vol] 7.4 g/dL 6.1-7.9 [facility] RBC Auto (Bld) [#/Vol]Ordere d By: Tessie Freitas on 07-17-2022 RBC (Bld) [#/Vol] 5.34 10*6/uL 3.90-5.60 [facility] Serum or plasma alanine mason otransferase measurement without P-5'-P (enzymatic activiOrdered By: Tessie Freitas on 07-17-2022 ALT No additional P-5'-P [Ca talytic activity/Vol] 36 U/L 10-60 [facility] Serum or plasma albumin/glob ulin mass ratioOrdered By: Tessie Freitas on 07-17-2022 Albumin/Globulin [Mass ratio] 1.5 {ratio} [facility] Serum or plasma alkaline nancy sphatase measurement (enzymatic activity/volume)Ordered By: Tessie Freitas on 07-17-2022 ALP [Catalytic activity/Vol] 106 U/L 32-92 [facility] Serum or plasma anion gap de terminationOrdered By: Tessie Freitas on 07-17-2022 Anion gap [Moles/Vol] 13.5 mmol/L 6.0-15.0 [facility] Serum or plasma aspartate am inotransferase measurement (enzymatic activity/volume)Ordered By: Tessie Freitas on 07-17-2022 AST [Catalytic activity/Vol] 26 U/L 10-42 [facility] Serum or plasma calcium hugo urement (mass/volume)Ordered By: Tessie Freitas on 07-17-2022 Calcium [Mass/Vol] 9.1 mg/dL 8.2-10.2 [facility] Serum or plasma chloride raji surement (moles/volume)Ordered By: Tessie Freitas on 07-17-2022 Chloride [Moles/Vol] 103 mmol/L 95-114 [facility] Serum or plasma ethanol hugo urement (mass/volume)Ordered By: Tessie Freitas on 07-17-2022 Ethanol [Mass/Vol] mg/dL [facility] Ethanol [Mass/Vol] TNP [facility] Comment on above: Test not performed Serum or plasma glucose hugo urement (mass/volume)Ordered By: Tessie Freitas on 07-17-2022 Glucose [Mass/Vol] 103 mg/dL 70-100 [facility] Comment on above: ADA recommended refe rence rangeRandom Glucose Reference Range is dependent on time and content of last meal. Glucose of more than 200 mg/dL in a nonstressed, ambulatory subject supports the diagnosis of Diabetes Mellitus. Serum or plasma potassium me asurement (moles/volume)Ordered By: Tessie Freitas on 07-17-2022 Potassium [Moles/Vol] 4.1 mmol/L 3.5-5.1 [facility] Serum or plasma sodium measu rement (moles/volume)Ordered By: Tessie Freitas on 07-17-2022 Sodium [Moles/Vol] 135 mmol/L 136-146 [facility] Serum or plasma total biliru bin measurement (mass/volume)Ordered By: [facility]ie [facility] on 07-17-2022 Bilirubin [Mass/Vol] 0.9 mg/dL 0.3-1.2 [facility] Serum or plasma total carbon dioxide measurement (moles/volume)Ordered By: [facility] on 07-17-2022 CO2 [Moles/Vol] 22.6 mmol/L 22.0-30.0 [facility] Serum or plasma urea nitroge n measurement (mass/volume)Ordered By: Tessie [facility] on 07-17-2022 Urea nitrogen [Mass/Vol] 18 mg/dL 9-23 [facility] Neyda Ag Negativeon 07-17-19 Neyda Ag Negative Negative Normal Negative [facility] Comment on above: Result Comment: This is a duplicate Neyda SARS Antigen (WARNER) result to be used for statistical tracking purpose only. PERFORMED BY: [place] [address] PATHOLOGIST ALGOLOGIST TIMUR PHILLIPS M.D. Performed By: #### C MP, CBC, ACET, TOSHIA, ETOH #### [address] Specific gravity Auto test s trip (U) [Rel density]Ordered By: Tessie Freitas on 07-17-2022 Specific gravity (U) [Rel density] 1.011 1.001-1.030 [facility] Urinalysison 07-17-2022 Appearance (U) Clear Normal Clear [facility] Comment on above: Order Comment: Name Collection Type:: Clean-Voided Midstream Performed By: #### C MP, CBC, ACET, TOSHIA, ETOH #### [facility] [address] [place] [address] [place] Bilirubin,Urine Negative Normal Negative [facility] Comment on above: Order Comment: Name Collection Type:: Clean-Voided Midstream Performed By: #### C MP, CBC, ACET, TOSHIA, ETOH #### [facility] [address] [place] [address] Glucose Ql (U) Normal Normal Normal [facility] Comment on above: Order Comment: Name Collection Type:: Clean-Voided Midstream Performed By: #### C MP, CBC, ACET, TOSHIA, ETOH #### [facility] [address] [place] [address] Ketones Ql (U) Negative Normal Negative [facility] Comment on above: Order Comment: Name Collection Type:: Clean-Voided Midstream Performed By: #### C MP, CBC, ACET, TOSHIA, ETOH #### [address] Leukocyte esterase Test stri p Ql (U) Negative Normal Negative [facility] Comment on above: Order Comment: Name Collection Type:: Clean-Voided Midstream Performed By: #### C MP, CBC, ACET, TOSHIA, ETOH #### [place] [address] [place] Nitrite,Urine Negative Normal Negative [facility] Comment on above: Order Comment: Name Collection Type:: Clean-Voided Midstream Performed By: #### C MP, CBC, ACET, TOSHAI, ETOH #### [place] [address] [place] Occult Blood,Urine Negative Normal Negative [facility] Comment on above: Order Comment: Name Collection Type:: Clean-Voided Midstream Result Comment: PERF ORMED BY: [place] [address] PATHOLOGIST ALGOLOGIST TIMUR PHILLIPS M.D. Performed By: #### C MP, CBC, ACET, TOSHIA, ETOH #### [place] [address] [place] Protein,Urine Negative Normal Negative [facility] Comment on above: Order Comment: Name Collection Type:: Clean-Voided Midstream Performed By: #### C MP, CBC, ACET, TOSHIA, ETOH #### [facility] [address] Specificy [place],Urine 1.011 Normal 1.001-1.030 [facility] Comment on above: Order Comment: Name Collection Type:: Clean-Voided Midstream Performed By: #### C MP, CBC, ACET, TOSHIA, ETOH #### [facility] [address] Urobilinogen,Urine Normal Normal Normal [facility] Comment on above: Order Comment: Name Collection Type:: Clean-Voided Midstream Performed By: #### C MP, CBC, ACET, TOSHIA, ETOH #### [address] Urine clarity by refractomet ry automatedOrdered By: Tessie Freitas on 07-17-2022 Clarity Refractometry automated (U) Clear Clear [facility] Urine cocaine detectionOrder ed By: Tessie Freitas on 07-17-2022 Cocaine Ql (U) Negative Negative [facility] Urine glucose measurement by automated test strip (mass/volume)Ordered By: Tessie Freitas on 07-17-2022 Glucose Auto test strip (U) [Mass/Vol] Normal mg/dL Normal [facility] Urine hemoglobin detection b y automated test stripOrdered By: Tessie Freitas on 07-17-2022 Hemoglobin Auto test strip Ql (U) Negative Ne gative [facility] Urine leukocyte esterase det ection by automated test stripOrdered By: Tessie Freitas on 07-17-2022 Leukocyte esterase Auto test strip Ql (U) Negative Negative [facility] Urine pH measurement by auto mated test stripOrdered By: Tessie Freitas on 07-17-2022 pH (U) 7.0 [pH] Normal 5.0-9.0 [facility] Comment on above: Order Comment: Name Collection Type:: Clean-Voided Midstream Performed By: #### C MP, CBC, ACET, TOSHIA, ETOH #### [facility] [address] [place] [address] Urobilinogen Auto test strip (U) [Mass/Vol]Ordered By: Tessie Freitas on 07-17-2022 Urobilinogen (U) [Mass/Vol] Normal mg/dL Normal [facility] WBC Auto (Bld) [#/Vol]Ordere d By: Tessie Freitas on 07-17-2022 WBC (Bld) [#/Vol] 8.6 10*3/uL 4.1-10.5 [facility] Basophils Auto (Bld) [#/Vol] Ordered By: PROVIDER TEMP on 07-16-2022 Basophils (Bld) [#/Vol] 0.1 10*3/uL 0.0-0.2 [facility] Basophils/100 WBC Auto (Bld) Ordered By: PROVIDER TEMP on 07-16-2022 Basophils/100 WBC (Bld) 1.2 % . [facility] Body fluid albumin measureme nt (mass/volume)Ordered By: PROVIDER TEMP on 07-16-2022 Albumin (Body fld) [Mass/Vol] 4.3 g/dL 3.2-5. 5 [facility] Complete Blood Count Auto Di ffon 07-16-2022 Basophils (Bld) [#/Vol] 0.1 10*3/uL Normal 0.0-0.2 [facility] Comment on above: Result Comment: PERF ORMED BY: [place] [address] PATHOLOGIST ALGOLOGIST TIMUR PHILLIPS M.D. Performed By: #### E JOHN, CBC, CMP #### [facility] [address] Basophils/100 WBC (Bld) 1.2 % Normal . [facility] Comment on above: Performed By: #### E JOHN, CBC, CMP #### [facility] [address] [place] [address] [place] Eosinophils (Bld) [#/Vol] 0.1 10*3/uL Normal 0.0-0.45 [facility] Comment on above: Performed By: #### E JOHN, CBC, CMP #### [facility] [address] Eosinophils/100 WBC (Bld) 0.6 % Normal . [facility] Comment on above: Performed By: #### E JOHN, CBC, CMP #### [facility] [address] Erythrocyte distribution wid th (RBC) [Ratio] 14.4 % Normal 12.0-14.8 [facility] Comment on above: Performed By: #### E JOHN, CBC, CMP #### [address] Hematocrit (Bld) [Volume fraction] 49.3 % Normal 38.8-50.0 [facility] Comment on above: Performed By: #### E JOHN, CBC, CMP #### [address] Hemoglobin (Bld) [Mass/Vol] 16.8 g/dL Normal 13.0-17. 0 [facility] Comment on above: Performed By: #### E JOHN, CBC, CMP #### [address] Lymphocytes (Bld) [#/Vol] 2.3 10*3/uL Normal 1.00-4.8 [facility] Comment on above: Performed By: #### E JOHN, CBC, CMP #### [place] [address] [place] Lymphocytes/100 WBC (Bld) 22.4 % Normal . [facility] Comment on above: Performed By: #### E JOHN, CBC, CMP #### [address] MCH (RBC) [Entitic mass] 30.7 pg Normal 27.5-35.2 [facility] Comment on above: Performed By: #### E JOHN, CBC, CMP #### [facility] [address] MCV (RBC) [Entitic vol] 90.1 fL Normal 83.5-101 [facility] Comment on above: Performed By: #### E JOHN, CBC, CMP #### [facility] [address] Mean Corpuscular HGB Conc 34.0 g/dL Normal 32.5-35.6 [facility] Comment on above: Performed By: #### E JOHN, CBC, CMP #### [facility] [address] Monocytes (Bld) [#/Vol] 1.2 10*3/uL High 0.0-0.8 [facility] Comment on above: Performed By: #### E JOHN, CBC, CMP #### [facility] [address] [place] [address] Monocytes/100 WBC (Bld) 15.79 % Normal 0.00-20.00 [facility] Comment on above: Performed By: #### E JOHN, CBC, CMP #### [place] [address] [place] Monocytes/100 WBC (Bld) 11.7 % Normal . [facility] Comment on above: Performed By: #### E JOHN, CBC, CMP #### [facility] [address] [place] [address] Neutrophils (Bld) [#/Vol] 6.5 10*3/uL Normal 1.8-7.7 [facility] Comment on above: Performed By: #### E JOHN, CBC, CMP #### [place] [address] [place] Neutrophils/100 WBC (Bld) 64.1 % Normal . [facility] Comment on above: Performed By: #### E JOHN, CBC, CMP #### [facility] [address] [place] [address] [place] NRBC% 0.2 /100{WBC} Normal 0-0.5 [facility] Comment on above: Performed By: #### E JOHN, CBC, CMP #### [facility] [address] [place] [address] [place] Platelet mean volume (Bld) [Entitic vol] 7.2 fL Normal 6.6-10.1 [facility] Comment on above: Performed By: #### E JOHN CBC, CMP #### [address] Platelets (Bld) [#/Vol] 358 10*3/uL Normal 150-450 [facility] Comment on above: Performed By: #### E JOHN CBC, CMP #### [address] RBC (Bld) [#/Vol] 5.47 10*6/uL Normal 3.90-5.60 [facility] Comment on above: Performed By: #### E JOHN CBC, CMP #### [address] WBC (Bld) [#/Vol] 10.1 10*3/uL Normal 4.1-10.5 [facility] Comment on above: Performed By: #### E JOHN CBC, CMP #### [address] Comprehensive Metabolic Pane darlene 07-16-2022 Albumin [Mass/Vol] 4.3 g/dL Normal 3.2-5.5 [facility] Comment on above: Order Comment: Speci men hemolyzed, redraw requested Performed By: #### E JOHN CBC, CMP #### [address] Albumin/Globulin [Mass ratio] 1.5 {ratio} Normal [facility] Comment on above: Order Comment: Speci men hemolyzed, redraw requested Performed By: #### E JOHN CBC, CMP #### [address] ALP [Catalytic activity/Vol] 101 U/L High 32-92 [facility] Comment on above: Order Comment: Speci men hemolyzed, redraw requested Performed By: #### E JOHN CBC, CMP #### [address] ALT [Catalytic activity/Vol] 42 U/L Normal 10-60 [facility] Comment on above: Order Comment: Speci men hemolyzed, redraw requested Performed By: #### E JOHN, CBC, CMP #### [facility] [address] Anion Gap Normal 6.0-15.0 [facility] Comment on above: Order Comment: Speci men hemolyzed, redraw requested Result Comment: Spec imen hemolyzed, redraw requested Performed By: #### E JOHN, CBC, CMP #### [facility] [address] AST [Catalytic activity/Vol] 40 U/L Normal 10-42 [facility] Comment on above: Order Comment: Speci men hemolyzed, redraw requested Performed By: #### E JOHN CBC, CMP #### [facility] [address] Bilirubin [Mass/Vol] 1.2 mg/dL Normal 0.3-1.2 [facility] Comment on above: Order Comment: Speci men hemolyzed, redraw requested Performed By: #### E JOHN CBC, CMP #### [facility] [address] [place] [address] Calcium [Mass/Vol] 9.1 mg/dL Normal 8.2-10.2 [facility] Comment on above: Order Comment: Speci men hemolyzed, redraw requested Performed By: #### E JOHN, CBC, CMP #### [facility] [address] [place] [address] [place] Chloride [Moles/Vol] 102 mmol/L Normal 95-114 [facility] Comment on above: Order Comment: Speci men hemolyzed, redraw requested Performed By: #### E JOHN, CBC, CMP #### [facility] [address] [place] [address] CO2 [Moles/Vol] 22.9 mmol/L Normal 22.0-30.0 [facility] Comment on above: Order Comment: Speci men hemolyzed, redraw requested Performed By: #### E JOHN, CBC, CMP #### [address] Creatinine [Mass/Vol] 1.18 mg/dL Normal 0.64-1.27 [facility] Comment on above: Order Comment: Speci men hemolyzed, redraw requested Performed By: #### E JOHN, CBC, CMP #### [address] Creatinine Clr Calc Pharmacy 80.45 [facility] Comment on above: Order Comment: Speci men hemolyzed, redraw requested Result Comment: PERF ORMED BY: [place] [address] PATHOLOGIST ALGOLOGIST TIMUR PHILLIPS M.D. Performed By: #### E JOHN, CBC, CMP #### [address] Estimated GFR ( José > 60 [facility] Comment on above: Order Comment: Speci men hemolyzed, redraw requested Result Comment: GFR estimated reference range: According to KDOQI guidelines, <60 ml/min/1.73m2 is sufficient to diagnose a patient with chronic kidney disease. Performed By: #### E JOHN, CBC, CMP #### [address] Estimated GFR (Non- Am > 60 [facility] Comment on above: Order Comment: Speci men hemolyzed, redraw requested Performed By: #### E JOHN, CBC, CMP #### [address] Globulin (S) [Mass/Vol] 2.8 g/dL Normal [facility] Comment on above: Order Comment: Speci men hemolyzed, redraw requested Performed By: #### E JOHN, CBC, CMP #### [address] Glucose [Mass/Vol] 84 mg/dL Normal 70-100 [facility] Comment on above: Order Comment: Speci men hemolyzed, redraw requested Result Comment: [place] Glucose Reference Range is dependent on time and content of last meal. Glucose of more than 200 mg/dL in a nonstressed, ambulatory subject supports the diagnosis of Diabetes Mellitus. ADA recommended reference range Performed By: #### E JOHN, CBC, CMP #### [facility] [address] Potassium Normal 3.5-5.1 [facility] Comment on above: Order Comment: Speci men hemolyzed, redraw requested Result Comment: Spec imen hemolyzed, redraw requested Performed By: #### E JOHN, CBC, CMP #### [facility] [address] Protein [Mass/Vol] 7.1 g/dL Normal 6.1-7.9 [facility] Comment on above: Order Comment: Speci men hemolyzed, redraw requested Performed By: #### E JOHN, CBC, CMP #### [facility] [address] [place] [address] [place] Sodium [Moles/Vol] 137 mmol/L Normal 136-146 [facility] Comment on above: Order Comment: Speci men hemolyzed, redraw requested Performed By: #### E JOHN, CBC, CMP #### [facility] [address] [place] [id number] [place] Urea nitrogen [Mass/Vol] 16 mg/dL Normal 9-23 [facility] Comment on above: Order Comment: Speci men hemolyzed, redraw requested Performed By: #### E JOHN, CBC, CMP #### [facility] [address] [place] [address] [place] Creatinine and Glomerular fi ltration rate.predicted panel (S/P/Bld)Ordered By: PROVIDER TEMP on 07-16-2022 Creatinine [Mass/Vol] 1.18 mg/dL 0.64-1.27 [facility] Eosinophils Auto (Bld) [#/Vo l]Ordered By: PROVIDER TEMP on 07-16-2022 Eosinophils (Bld) [#/Vol] 0.1 10*3/uL 0.0-0.45 [facility] Eosinophils/100 WBC Auto (Bl d)Ordered By: PROVIDER TEMP on 07-16-2022 Eosinophils/100 WBC (Bld) 0.6 % . [facility] Erythrocyte distribution wid th Auto (RBC) [Ratio]Ordered By: PROVIDER TEMP on 07-16-2022 Erythrocyte distribution wid th (RBC) [Ratio] 14.4 % 12.0-14.8 [facility] Estimated glomerular filtrat ion rate (GFR) non- AmericanOrdered By: PROVIDER TEMP on 07-16-2022 GFR/1.73 sq M.predicted judy g non-blacks MDRD (S/P/Bld) [Vol rate/Area] > 60 mL/Min [facility] Ethyl Alcohol Profileon Ethanol [Mass/Vol] mg/dL Normal [facility] Comment on above: Performed By: #### E JOHN, CBC, CMP #### [facility] [address] [place] [address] Percent Ethanol Not performed Normal [facility] Comment on above: Result Comment: PERF ORMED BY: [place] [address] PATHOLOGIST ALGOLOGIST TIMUR PHILLIPS M.D. Performed By: #### E JOHN, CBC, CMP #### [facility] [address] [place] [address] Globulin Calc (S) [Mass/Vol] Ordered By: PROVIDER TEMP on 07-16-2022 Globulin (S) [Mass/Vol] 2.8 g/dL [facility] Hematocrit Auto (Bld) [Volum e fraction]Ordered By: PROVIDER TEMP on 07-16-2022 Hematocrit (Bld) [Volume fraction] 49.3 % 3 8.8-50.0 [facility] Hemoglobin [Mass/volume] in BloodOrdered By: PROVIDER TEMP on 07-16-2022 Hemoglobin (Bld) [Mass/Vol] 16.8 g/dL 13.0-17. 0 [facility] Leukocytes [#/volume] correc bia for nucleated erythrocytes in Blood by Automated counOrdered By: PROVIDER TEMP on 07-16-2022 WBC corrected for nucl RBC A uto (Bld) [#/Vol] 10.1 10*3/uL 4.1-10.5 [facility] Lymphocytes Auto (Bld) [#/Vo l]Ordered By: PROVIDER TEMP on 07-16-2022 Lymphocytes (Bld) [#/Vol] 2.3 10*3/uL 1.00-4.8 [facility] Lymphocytes/100 WBC Auto (Bl d)Ordered By: PROVIDER TEMP on 07-16-2022 Lymphocytes/100 WBC (Bld) 22.4 % . [facility] MCH Auto (RBC) [Entitic mass ]Ordered By: PROVIDER TEMP on 07-16-2022 MCH (RBC) [Entitic mass] 30.7 pg 27.5-35.2 [facility] MCHC Auto (RBC) [Mass/Vol]Or dered By: PROVIDER TEMP on 07-16-2022 MCHC (RBC) [Mass/Vol] 34.0 g/dL 32.5-35.6 [facility] MCV Auto (RBC) [Entitic vol] Ordered By: PROVIDER TEMP on 07-16-2022 MCV (RBC) [Entitic vol] 90.1 fL 83.5-101 [facility] Monocyte distribution width [Entitic volume] in Blood by AutomatedOrdered By: PROVIDER TEMP on 07-16-2022 Monocyte distribution width Auto (Bld) [Entitic vol] 15.79 % 0.00-20.00 [facility] Monocytes Auto (Bld) [#/Vol] Ordered By: PROVIDER TEMP on 07-16-2022 Monocytes (Bld) [#/Vol] 1.2 10*3/uL 0.0-0.8 [facility] Monocytes/100 WBC Auto (Bld) Ordered By: PROVIDER TEMP on 07-16-2022 Monocytes/100 WBC (Bld) 11.7 % . [facility] Neutrophils Auto (Bld) [#/Vo l]Ordered By: PROVIDER TEMP on 07-16-2022 Neutrophils (Bld) [#/Vol] 6.5 10*3/uL 1.8-7.7 [facility] Neutrophils/100 WBC Auto (Bl d)Ordered By: PROVIDER TEMP on 07-16-2022 Neutrophils/100 WBC (Bld) 64.1 % . [facility] No Panel InformationOrdered By: PROVIDER TEMP on 07-16-2022 Estimated GFR () > 60 mL/Min [facility] Comment on above: GFR estimated refere nce range: According to KDOQI guidelines, <60 ml/min/1.73m2 is sufficient to diagnose a patient with chronic kidney disease. Pharmacy Creatinine Clearance (Chem 80.45 [facility] Nucleated erythrocytes [Pres ence] in Blood by Automated countOrdered By: PROVIDER TEMP on 07-16-2022 Nucleated RBC Auto Ql (Bld) 0.2 /100{WBC} 0-0.5 [facility] Platelet mean volume Auto (B ld) [Entitic vol]Ordered By: PROVIDER TEMP on 07-16-2022 Platelet mean volume (Bld) [Entitic vol] 7.2 fL 6.6-10.1 [facility] Platelets Auto (Bld) [#/Vol] Ordered By: PROVIDER TEMP on 07-16-2022 Platelets (Bld) [#/Vol] 358 10*3/uL 150-450 [facility] Protein [Mass/volume] in Ser um or PlasmaOrdered By: PROVIDER TEMP on 07-16-2022 Protein [Mass/Vol] 7.1 g/dL 6.1-7.9 [facility] RBC Auto (Bld) [#/Vol]Ordere d By: PROVIDER TEMP on 07-16-2022 RBC (Bld) [#/Vol] 5.47 10*6/uL 3.90-5.60 [facility] Serum or plasma alanine mason otransferase measurement without P-5'-P (enzymatic activiOrdered By: PROVIDER TEMP on 07-16-2022 ALT No additional P-5'-P [Ca talytic activity/Vol] 42 U/L 10-60 [facility] Serum or plasma albumin/glob ulin mass ratioOrdered By: PROVIDER TEMP on 07-16-2022 Albumin/Globulin [Mass ratio] 1.5 {ratio} [facility] Serum or plasma alkaline anncy sphatase measurement (enzymatic activity/volume)Ordered By: PROVIDER TEMP on 07-16-2022 ALP [Catalytic activity/Vol] 101 U/L 32-92 [facility] Serum or plasma anion gap de terminationOrdered By: PROVIDER TEMP on 07-16-2022 Anion gap [Moles/Vol] See comment 6.0-15.0 [facility] Comment on above: Specimen hemolyzed, redraw requested Serum or plasma aspartate am inotransferase measurement (enzymatic activity/volume)Ordered By: PROVIDER TEMP on 07-16-2022 AST [Catalytic activity/Vol] 40 U/L 10-42 [facility] Serum or plasma calcium hugo urement (mass/volume)Ordered By: PROVIDER TEMP on 07-16-2022 Calcium [Mass/Vol] 9.1 mg/dL 8.2-10.2 [facility] Serum or plasma chloride raji surement (moles/volume)Ordered By: PROVIDER TEMP on 07-16-2022 Chloride [Moles/Vol] 102 mmol/L 95-114 [facility] Serum or plasma ethanol hugo urement (mass/volume)Ordered By: PROVIDER TEMP on 07-16-2022 Ethanol [Mass/Vol] mg/dL [facility] Ethanol [Mass/Vol] TNP [facility] Comment on above: Test not performed Serum or plasma glucose hugo urement (mass/volume)Ordered By: PROVIDER TEMP on 07-16-2022 Glucose [Mass/Vol] 84 mg/dL 70-100 [facility] Comment on above: ADA recommended refe rence rangeRandom Glucose Reference Range is dependent on time and content of last meal. Glucose of more than 200 mg/dL in a nonstressed, ambulatory subject supports the diagnosis of Diabetes Mellitus. Serum or plasma potassium me asurement (moles/volume)Ordered By: PROVIDER TEMP on 07-16-2022 Potassium [Moles/Vol] See comment 3.5-5.1 [facility] Comment on above: Specimen hemolyzed, redraw requested Serum or plasma sodium measu rement (moles/volume)Ordered By: PROVIDER TEMP on 07-16-2022 Sodium [Moles/Vol] 137 mmol/L 136-146 [facility] Serum or plasma total biliru bin measurement (mass/volume)Ordered By: PROVIDER TEMP on 07-16-2022 Bilirubin [Mass/Vol] 1.2 mg/dL 0.3-1.2 [facility] Serum or plasma total carbon dioxide measurement (moles/volume)Ordered By: PROVIDER TEMP on 07-16-2022 CO2 [Moles/Vol] 22.9 mmol/L 22.0-30.0 [facility] Serum or plasma urea nitroge n measurement (mass/volume)Ordered By: PROVIDER TEMP on 07-16-2022 Urea nitrogen [Mass/Vol] 16 mg/dL 9- [facility] WBC Auto (Bld) [#/Vol]Ordere d By: PROVIDER TEMP on 07-16-2022 WBC (Bld) [#/Vol] 10.1 10*3/uL 4.1-10.5 [facility] Cholesterol [Mass/volume] in Serum or PlasmaOrdered By: Paulo Strauss on 07-12-2022 Cholesterol [Mass/Vol] 163 mg/dL 140-200 [facility] Comment on above: Chol less than 200 m g/dl low riskChol 201-239 mg/dl borderline riskChol 240 mg/dl and greater high risk Cholesterol in LDL Calc [Mas s/Vol]Ordered By: Paulo Strauss on 07-12-2022 Cholesterol in LDL [Mass/Vol] 99 mg/dL 0-100 [facility] Comment on above: LDL ATP III CLASSIFI CATIONLDL less than 100 mg/dL OptimalLDL 100-129 mg/dL Near or above optimalLDL 130-159 mg/dL Borderline highLDL 160-189 mg/dL HighLDL greater than 189 mg/dL Very high Cholesterol in VLDL Calc [Ma ss/Vol]Ordered By: Paulo Strauss on 07-12-2022 Cholesterol in VLDL [Mass/Vol] 7 mg/dL [facility] Lipid Panelon 07-12-2022 Cholesterol [Mass/Vol] 163 mg/dL Normal 140-200 [facility] Comment on above: Result Comment: Chol less than 200 mg/dl low risk Chol 201-239 mg/dl borderline risk Chol 240 mg/dl and greater high risk Performed By: #### E JOHN CBC, CMP #### [facility] [address] Cholesterol in HDL [Mass/Vol] 57 mg/dL Normal 29-71 [facility] Comment on above: Result Comment: HDL CHOL ATP-III CLASSIFICATION Cardiovascular Risk HDL > or equal to 60 mg/dL LOW HDL < 40 mg/dL HIGH Performed By: #### E JOHN CBC, CMP #### [facility] [address] Cholesterol.total/Cholestero l in HDL [Mass ratio] 2.9 {ratio} Normal <5.0 [facility] Comment on above: Performed By: #### E JOHN CBC, CMP #### [address] LDL Cholesterol,Calculated 99 mg/dL Normal 0-100 [facility] Comment on above: Result Comment: LDL ATP III CLASSIFICATION LDL less than 100 mg/dL Optimal LDL 100-129 mg/dL Near or above optimal LDL 130-159 mg/dL Borderline high LDL 160-189 mg/dL High LDL greater than 189 mg/dL Very high Performed By: #### E JOHN CBC, CMP #### [address] Triglyceride w/Reflex 36 mg/dL Normal 35-149 [facility] Comment on above: Result Comment: TRIG ATP III CLASSIFICATION TRIG less than 150 mg/dL Normal TRIG 150-199 mg/dL Borderline high TRIG 200-500 mg/dL High TRIG greater than 500 mg/dL Very high Standard traceable to the Center for Disease Conrtrol and Prevention (CDC) test method. Performed By: #### E JOHN CBC, CMP #### [facility] [address] [place] [address] VLDL CHOLESTEROL 7 mg/dL Normal [facility] Comment on above: Performed By: #### E JOHN, CBC, CMP #### [address] No Panel InformationOrdered By: Paulo Strauss on 12-31-2022 25-Hydroxy Vitamin D Total 21.4 ng/mL 30-100 [facility] Comment on above: VITAMIN D STATUS 25( [place])VITAMIN D RANGE (ng/mL) Deficient <20 Insufficient 20 to <30Sufficient 30 to 100Reference: Madeline MF,[place], Chris MENDOZA, et al. Evaluation,treatment, and prevention of vitamin D deficiency; an Endocrine Society clinical practice guideline. JCEM. 2010; 96(7):1911-30. Serum or plasma high density lipoprotein (HDL) cholesterol measurementOrdered By: Paulo Strauss on 07-12-2022 Cholesterol in HDL [Mass/Vol] 57 mg/dL 29-71 [facility] Comment on above: HDL CHOL ATP-III CLA SSIFICATION Cardiovascular RiskHDL > or equal to 60 mg/dL LOWHDL < 40 mg/dL HIGH Serum or plasma total choles terol/high density lipoprotein (HDL) cholesterol mass ratOrdered By: Paulo Strauss on 07-12-2022 Cholesterol.total/Cholestero l in HDL [Mass ratio] 2.9 {ratio} <5.0 [facility] TSH DL <= 0.005 mIU/L QnOrde red By: Paulo Strauss on 07-12-2022 TSH Qn 0.97 m[IU]/L 0.45-5.33 [facility] Thyroid Stim Hormone w/Rflxo n 07-12-2022 Thyroid Stim Hormone w/Rflx 0.97 u[iU]/mL Normal 0.45-5.33 [facility] Comment on above: Performed By: #### E JOHN, CBC, CMP #### [facility] [address] [place] [address] Triglyceride [Mass/volume] i n Serum or PlasmaOrdered By: Paulo Strauss on 07-12-2022 Triglyceride [Mass/Vol] 36 mg/dL 35-149 [facility] Comment on above: TRIG ATP III CLASSIF ICATIONTRIG less than 150 mg/dL NormalTRIG 150-199 mg/dL Borderline highTRIG 200-500 mg/dL High TRIG greater than 500 mg/dL Very highStandard traceable to the Center for Disease Conrtrol and Prevention (CDC) test method. Vitamin D 25 Hydroxy Totalon 07-12-2022 Vitamin D 25 Hydroxy Total 21.4 ng/mL Low 30-100 [facility] Comment on above: Result Comment: JIM MIN D STATUS 25(OH)VITAMIN D RANGE (ng/mL) Deficient <20 Insufficient 20 to <30 Sufficient 30 to 100 Reference: Madeline MF,[place], Chris MENDOZA, et al. Evaluation,treatment, and prevention of vitamin D deficiency; an Endocrine Society clinical practice guideline. JCEM. 2010; 96(7):1911-30. PERFORMED BY: [place] [address] PATHOLOGIST ALGOLOGIST TIMUR PHILLIPS M.D. Performed By: #### E JOHN, CBC, CMP #### [facility] [address] [place] [address] A1C with Estimated Average G luon 07-11-2022 Glucose [Mass/Vol] 103 mg/dL Normal [facility] Comment on above: Result Comment: PERF ORMED BY: [place] [address] PATHOLOGIST ALGOLOGIST TIMUR PHILLIPS M.D. Performed By: #### C MP, CBC, ACET, TOSHIA, ETOH #### [place] [id number] [facility] HbA1c (Bld) [Mass fraction] 5.2 % Normal 4.3-5.6 [facility] Comment on above: Result Comment: Incr eased risk for diabetes: 5.7 - 6.4 diabetes: >6.4 glycemic control for adults with diabetes: <7.0 Performed By: #### C MP, CBC, ACET, TOSHIA, ETOH #### [facility] [address] [place] [address] Activated partial thrombopla stin time (aPTT) in platelet poor plasma by coagulation aOrdered By: Cleveland Foreman on 07-11-2022 aPTT Coag (PPP) [Time] 31.6 s 25.1-36.5 [facility] Albumin [Mass/volume] in Ser um or PlasmaOrdered By: Cleveland Foreman on 07-11-2022 Albumin [Mass/Vol] 3.5 g/dL 3.2-5.5 [facility] Basic Metabolic Panelon 06-14 Anion gap [Moles/Vol] 11.0 mmol/L Normal 6.0-15.0 [facility] Comment on above: Performed By: #### C MP, CBC, ACET, TOSHIA, ETOH #### [facility] [address] Calcium [Mass/Vol] 8.6 mg/dL Normal 8.2-10.2 [facility] Comment on above: Performed By: #### C MP, CBC, ACET, TOSHIA, ETOH #### [facility] [address] Chloride [Moles/Vol] 108 mmol/L Normal 95-114 [facility] Comment on above: Performed By: #### C MP, CBC, ACET, TOSHIA, ETOH #### [facility] [address] CO2 [Moles/Vol] 20.6 mmol/L Low 22.0-30.0 [facility] Comment on above: Performed By: #### C MP, CBC, ACET, TOSHIA, ETOH #### [facility] [address] Creatinine [Mass/Vol] 1.14 mg/dL Normal 0.64-1.27 [facility] Comment on above: Performed By: #### C MP, CBC, ACET, TOSHIA, ETOH #### [facility] [address] [place] [address] [place] Creatinine Clr Calc Pharmacy 82.08 [facility] Comment on above: Performed By: #### C MP, CBC, ACET, TOSHIA, ETOH #### [facility] [address] Estimated GFR ( José > 60 [facility] Comment on above: Result Comment: GFR estimated reference range: According to KDOQI guidelines, <60 ml/min/1.73m2 is sufficient to diagnose a patient with chronic kidney disease. Performed By: #### C MP, CBC, ACET, TOSHIA, ETOH #### [facility] [address] [place] [address] [place] Estimated GFR (Non- Am > 60 Normal [facility] Comment on above: Performed By: #### C MP, CBC, ACET, TOSHIA, ETOH #### [facility] [address] [place] [address] [place] Glucose [Mass/Vol] 111 mg/dL High 70-100 [facility] Comment on above: Result Comment: [facility] Glucose Reference Range is dependent on time and content of last meal. Glucose of more than 200 mg/dL in a nonstressed, ambulatory subject supports the diagnosis of Diabetes Mellitus. ADA recommended reference range Performed By: #### C MP, CBC, ACET, TOSHIA, ETOH #### [facility] [address] Potassium [Moles/Vol] 4.6 mmol/L Normal 3.5-5.1 [facility] Comment on above: Performed By: #### C MP, CBC, ACET, TOSHIA, ETOH #### [facility] [address] [place] [address] [place] Sodium [Moles/Vol] 135 mmol/L Low 136-146 [facility] Comment on above: Performed By: #### C MP, CBC, ACET, TOSHIA, ETOH #### [facility] [address] [place] [address] [place] Urea nitrogen [Mass/Vol] 23 mg/dL Normal 9-23 [facility] Comment on above: Performed By: #### C MP, CBC, ACET, TOSHIA, ETOH #### [facility] [address] [place] [address] [place] Anion gap [Moles/Vol] 8.6 mmol/L Normal 6.0-15.0 [facility] Comment on above: Performed By: #### C MP, CBC, ACET, TOSHIA, ETOH #### [facility] [address] [place] [address] [place] Calcium [Mass/Vol] 8.5 mg/dL Normal 8.2-10.2 [facility] Comment on above: Performed By: #### C MP, CBC, ACET, TOSHIA, ETOH #### [facility] [address] [place] [address] [place] Chloride [Moles/Vol] 109 mmol/L Normal 95-114 [facility] Comment on above: Performed By: #### C MP, CBC, ACET, TOSHIA, ETOH #### [facility] [address] CO2 [Moles/Vol] 23.6 mmol/L Normal 22.0-30.0 [facility] Comment on above: Performed By: #### C MP, CBC, ACET, TOSHIA, ETOH #### [facility] [address] Creatinine [Mass/Vol] 1.13 mg/dL Normal 0.64-1.27 [facility] Comment on above: Performed By: #### C MP, CBC, ACET, TOSHIA, ETOH #### [place] [address] [place] Creatinine Clr Calc Pharmacy 82.81 [facility] Comment on above: Performed By: #### C MP, CBC, ACET, TOSHIA, ETOH #### [address] Estimated GFR ( José > 60 [facility] Comment on above: Result Comment: GFR estimated reference range: According to KDOQI guidelines, <60 ml/min/1.73m2 is sufficient to diagnose a patient with chronic kidney disease. Performed By: #### C MP, CBC, ACET, TOSHIA, ETOH #### [address] Estimated GFR (Non- Am > 60 [facility] Comment on above: Performed By: #### C MP, CBC, ACET, TOSHIA, ETOH #### [address] Glucose [Mass/Vol] 98 mg/dL Normal 70-100 [facility] Comment on above: Result Comment: [facility] Glucose Reference Range is dependent on time and content of last meal. Glucose of more than 200 mg/dL in a nonstressed, ambulatory subject supports the diagnosis of Diabetes Mellitus. ADA recommended reference range Performed By: #### C MP, CBC, ACET, TOSHIA, ETOH #### [facility] [address] Potassium [Moles/Vol] 4.2 mmol/L Normal 3.5-5.1 [facility] Comment on above: Performed By: #### C MP, CBC, ACET, TOSHIA, ETOH #### [facility] [address] Sodium [Moles/Vol] 137 mmol/L Normal 136-146 [facility] Comment on above: Performed By: #### C MP, CBC, ACET, TOSHIA, ETOH #### [facility] [address] Urea nitrogen [Mass/Vol] 24 mg/dL High 9- [facility] Comment on above: Performed By: #### C MP, CBC, ACET, TOSHIA, ETOH #### [address] Basophils Auto (Bld) [#/Vol] Ordered By: Chas Hoyos on 07-11-2022 Basophils (Bld) [#/Vol] 0.1 10*3/uL 0.0-0.2 [facility] Basophils/100 WBC Auto (Bld) Ordered By: Chas Hoyos on 07-11-2022 Basophils/100 WBC (Bld) 0.7 % . [facility] Blood thiamine measurement ( moles/volume)Ordered By: Cleveland Foreman on 07-11-2022 Thiamine (Bld) [Moles/Vol] 138.5 nmol/L 66.5-20 0.0 [facility] Comment on above: This test was develo ped and its performance characteristicsdetermined by [employer]. It has not been cleared orapproved by the Food and Drug Administration.Performed at: [address] [id number] Director: Teresa Licona MD, Phone: [phone] Cholesterol [Mass/volume] in Serum or PlasmaOrdered By: Cleveland Foreman on 07-11-2022 Cholesterol [Mass/Vol] 171 mg/dL 140-200 [facility] Comment on above: Chol less than 200 m g/dl low riskChol 201-239 mg/dl borderline riskChol 240 mg/dl and greater high risk Cholesterol in LDL Calc [Mas s/Vol]Ordered By: Cleveland Foreman on 07-11-2022 Cholesterol in LDL [Mass/Vol] 77 mg/dL 0-100 [facility] Comment on above: LDL ATP III CLASSIFI CATIONLDL less than 100 mg/dL OptimalLDL 100-129 mg/dL Near or above optimalLDL 130-159 mg/dL Borderline highLDL 160-189 mg/dL HighLDL greater than 189 mg/dL Very high Cholesterol in VLDL Calc [Ma ss/Vol]Ordered By: Cleveland Foreman on 07-11-2022 Cholesterol in VLDL [Mass/Vol] 37 mg/dL [facility] Complete Blood Count Auto Di ffon 07-11-2022 Basophils (Bld) [#/Vol] 0.1 10*3/uL Normal 0.0-0.2 [facility] Comment on above: Result Comment: PERF ORMED BY: [place] [address] PATHOLOGIST ALGOLOGIST TIMUR PHILLIPS M.D. Performed By: #### C MP, CBC, ACET, TOSHIA, ETOH #### [facility] [address] [place] [address] [place] Basophils/100 WBC (Bld) 0.7 % Normal . [facility] Comment on above: Performed By: #### C MP, CBC, ACET, TOSHIA, ETOH #### [facility] [address] [place] [address] [place] Eosinophils (Bld) [#/Vol] 0.1 10*3/uL Normal 0.0-0.45 [facility] Comment on above: Performed By: #### C MP, CBC, ACET, TOSHIA, ETOH #### [facility] [address] [place] [address] [place] Eosinophils/100 WBC (Bld) 1.5 % Normal . [facility] Comment on above: Performed By: #### C MP, CBC, ACET, TOSHIA, ETOH #### [address] Erythrocyte distribution wid th (RBC) [Ratio] 15.2 % High 12.0-14.8 [facility] Comment on above: Performed By: #### C MP, CBC, ACET, TOSHIA, ETOH #### [address] Hematocrit (Bld) [Volume fraction] 42.4 % Normal 38.8-50.0 [facility] Comment on above: Performed By: #### C MP, CBC, ACET, TOSHIA, ETOH #### [address] Hemoglobin (Bld) [Mass/Vol] 14.0 g/dL Normal 13.0-17. 0 [facility] Comment on above: Performed By: #### C MP, CBC, ACET, TOSHIA, ETOH #### [address] Lymphocytes (Bld) [#/Vol] 1.7 10*3/uL Normal 1.00-4.8 [facility] Comment on above: Performed By: #### C MP, CBC, ACET, TOSHIA, ETOH #### [address] Lymphocytes/100 WBC (Bld) 22.4 % Normal . [facility] Comment on above: Performed By: #### C MP, CBC, ACET, TOSHIA, ETOH #### [address] MCH (RBC) [Entitic mass] 30.1 pg Normal 27.5-35.2 [facility] Comment on above: Performed By: #### C MP, CBC, ACET, TOSHIA, ETOH #### [address] MCV (RBC) [Entitic vol] 91.4 fL Normal 83.5-101 [facility] Comment on above: Performed By: #### C MP, CBC, ACET, TOSHIA, ETOH #### [address] Mean Corpuscular HGB Conc 33.0 g/dL Normal 32.5-35.6 [facility] Comment on above: Performed By: #### C MP, CBC, ACET, TOSHIA, ETOH #### [address] Monocytes (Bld) [#/Vol] 1.3 10*3/uL High 0.0-0.8 [facility] Comment on above: Performed By: #### C MP, CBC, ACET, TOSHIA, ETOH #### [address] Monocytes/100 WBC (Bld) 17.0 % Normal . [facility] Comment on above: Performed By: #### C MP, CBC, ACET, TOSHIA, ETOH #### [address] Neutrophils (Bld) [#/Vol] 4.5 10*3/uL Normal 1.8-7.7 [facility] Comment on above: Performed By: #### C MP, CBC, ACET, TOSHIA, ETOH #### [address] Neutrophils/100 WBC (Bld) 58.4 % Normal . [facility] Comment on above: Performed By: #### C MP, CBC, ACET, TOSHIA, ETOH #### [place] [address] [place] NRBC% 0.1 /100{WBC} Normal 0-0.5 [facility] Comment on above: Performed By: #### C MP, CBC, ACET, TOSHIA, ETOH #### [place] [address] [place] Platelet mean volume (Bld) [Entitic vol] 7.2 fL Normal 6.6-10.1 [facility] Comment on above: Performed By: #### C MP, CBC, ACET, TOSHIA, ETOH #### [place] [address] [place] Platelets (Bld) [#/Vol] 291 10*3/uL Normal 150-450 [facility] Comment on above: Performed By: #### C MP, CBC, ACET, TOSHIA, ETOH #### [address] RBC (Bld) [#/Vol] 4.64 10*6/uL Normal 3.90-5.60 [facility] Comment on above: Performed By: #### C MP, CBC, ACET, TOSHIA, ETOH #### [facility] [address] WBC (Bld) [#/Vol] 7.7 10*3/uL Normal 4.1-10.5 [facility] Comment on above: Performed By: #### C MP, CBC, ACET, TOSHIA, ETOH #### [address] Creatine Kinaseon 07-11-2022 CK [Catalytic activity/Vol] 204 U/L Normal 22-269 [facility] Comment on above: Result Comment: PERF ORMED BY: [place] [address] PATHOLOGIST ALGOLOGIST TIMUR PHILLIPS M.D. Performed By: #### C MP, CBC, ACET, TOSHIA, ETOH #### [address] Creatine kinase [Enzymatic a ctivity/volume] in Serum or PlasmaOrdered By: Cleveland Foreman on 07-11-2022 CK [Catalytic activity/Vol] 204 U/L 22-269 [facility] Creatinine and Glomerular fi ltration rate.predicted panel (S/P/Bld)Ordered By: Cleveland Foreman on 07-11-2022 Creatinine [Mass/Vol] 1.14 mg/dL 0.64-1.27 [facility] Direct bilirubin measurement Ordered By: Cleveland Foreman on 07-11-2022 Bilirubin.direct [Mass/Vol] 0.3 mg/dL 0.0-0.4 [facility] Eosinophils Auto (Bld) [#/Vo l]Ordered By: Chas Hoyos on 07-11-2022 Eosinophils (Bld) [#/Vol] 0.1 10*3/uL 0.0-0.45 [facility] Eosinophils/100 WBC Auto (Bl d)Ordered By: Chas Hoyos on 07-11-2022 Eosinophils/100 WBC (Bld) 1.5 % . [facility] Erythrocyte distribution wid th Auto (RBC) [Ratio]Ordered By: Chas Hoyos on 07-11-2022 Erythrocyte distribution wid th (RBC) [Ratio] 15.2 % 12.0-14.8 [facility] Estimated glomerular filtrat ion rate (GFR) non- AmericanOrdered By: Cleveland Foreman on 07-11-2022 GFR/1.73 sq M.predicted judy g non-blacks MDRD (S/P/Bld) [Vol rate/Area] > 60 mL/Min [facility] Folate [Mass/volume] in Seru m or PlasmaOrdered By: Cleveland Foreman on 07-11-2022 Folate [Mass/Vol] ng/mL >5.9 [facility] Comment on above: Folate reference ran ge: >5.9 ng/mlThe WHO technical consultation on folate and vitamin [id number] has determined that folate concentrations lessthan 4 ng/ml are considered deficient. Free T4 (Free Thyroxine)on Free T4 [Mass/Vol] 0.65 ng/dL Normal 0.61-1.12 [facility] Comment on above: Order Comment: FASTI MERYL N Performed By: #### C MP, CBC, ACET, TOSHIA, ETOH #### [facility] [address] Globulin Calc (S) [Mass/Vol] Ordered By: Cleveland Foreman on 07-11-2022 Globulin (S) [Mass/Vol] 2.5 g/dL [facility] Glucose mean value [Mass/vol ume] in Blood Estimated from glycated hemoglobinOrdered By: Cleveland Foreman on 07-11-2022 Average glucose Estimated fr glycated hemoglobin (Bld) [Mass/Vol] 103 mg/dL [facility] Hematocrit Auto (Bld) [Volum e fraction]Ordered By: Chas Hoyos on 07-11-2022 Hematocrit (Bld) [Volume fraction] 42.4 % 3 8.8-50.0 [facility] Hemoglobin A1c percentageOrd ered By: Cleveland Foreman on 07-11-2022 HbA1c (Bld) [Mass fraction] 5.2 % 4.3-5.6 [facility] Comment on above: Increased risk for d iabetes: 5.7 - 6.4diabetes: >6.4glycemic control for adults with diabetes: <7.0 Hemoglobin [Mass/volume] in BloodOrdered By: Chas Hoyos on 07-11-2022 Hemoglobin (Bld) [Mass/Vol] 14.0 g/dL 13.0-17. 0 [facility] Hepatic Panelon 07-11-2022 Albumin [Mass/Vol] 3.5 g/dL Normal 3.2-5.5 [facility] Comment on above: Performed By: #### C MP, CBC, ACET, TOSHIA, ETOH #### [facility] [address] [place] [address] [place] Albumin/Globulin [Mass ratio] 1.4 {ratio} Normal [facility] Comment on above: Performed By: #### C MP, CBC, ACET, TOSHIA, ETOH #### [facility] [address] [place] [address] [place] ALP [Catalytic activity/Vol] 105 U/L High 32- [facility] Comment on above: Performed By: #### C MP, CBC, ACET, TOSHIA, ETOH #### [facility] [address] [place] [id number] [place] ALT [Catalytic activity/Vol] 34 U/L Normal 10-60 [facility] Comment on above: Performed By: #### C MP, CBC, ACET, TOSHIA, ETOH #### [facility] [address] [place] [id number] [place] AST [Catalytic activity/Vol] 32 U/L Normal 10-42 [facility] Comment on above: Performed By: #### C MP, CBC, ACET, TOSHIA, ETOH #### [facility] [address] Bilirubin [Mass/Vol] 1.0 mg/dL Normal 0.3-1.2 [facility] Comment on above: Performed By: #### C MP, CBC, ACET, TOSHIA, ETOH #### [facility] [address] Bilirubin,Indirect 0.7 mg/dL Normal [facility] Comment on above: Performed By: #### C MP, CBC, ACET, TOSHIA, ETOH #### [facility] [address] Bilirubin.indirect [Mass/Vol] 0.3 mg/dL Normal 0.0-0. 4 [facility] Comment on above: Performed By: #### C MP, CBC, ACET, TOSHIA, ETOH #### [facility] [address] Globulin (S) [Mass/Vol] 2.5 g/dL Normal [facility] Comment on above: Performed By: #### C MP, CBC, ACET, TOSHIA, ETOH #### [facility] [address] Protein [Mass/Vol] 6.0 g/dL Low 6.1-7.9 [facility] Comment on above: Performed By: #### C MP, CBC, ACET, TOSHIA, ETOH #### [address] Laboratory - Chemistry and C hemistry - challengeOrdered By: Cleveland Foreman on 07-11-2022 Cobalamin (Vitamin B12) [Mass/Vol] 269 pg/mL 180-914 [facility] Laboratory - Chemistry and C hemistry - challengeOrdered By: Chas Hoyos on 07-11-2022 Magnesium [Mass/Vol] 2.0 mg/dL 1.6-2.6 [facility] Laboratory - CoagulationOrde red By: Cleveland Foreman on 07-11-2022 PT Coag (PPP) [Time] 11.5 s 9.0-12.9 [facility] Leukocytes [#/volume] correc bia for nucleated erythrocytes in Blood by Automated counOrdered By: Chas Hoyos on 07-11-2022 WBC corrected for nucl RBC A uto (Bld) [#/Vol] 7.7 10*3/uL 4.1-10.5 [facility] Lipid Panelon 07-11-2022 Cholesterol [Mass/Vol] 171 mg/dL Normal 140-200 [facility] Comment on above: Order Comment: FASTI NG N Result Comment: Chol less than 200 mg/dl low risk Chol 201-239 mg/dl borderline risk Chol 240 mg/dl and greater high risk Performed By: #### C MP, CBC, ACET, TOSHIA, ETOH #### [facility] [address] [place] [address] [place] Cholesterol in HDL [Mass/Vol] 57 mg/dL Normal 29-71 [facility] Comment on above: Order Comment: FASTI NG N Result Comment: HDL CHOL ATP-III CLASSIFICATION Cardiovascular Risk HDL > or equal to 60 mg/dL LOW HDL < 40 mg/dL HIGH Performed By: #### C MP, CBC, ACET, TOSHIA, ETOH #### [facility] [address] [place] [address] [place] Cholesterol.total/Cholestero l in HDL [Mass ratio] 3.0 {ratio} Normal <5.0 [facility] Comment on above: Order Comment: FASTI NG N Performed By: #### C MP, CBC, ACET, TOSHIA, ETOH #### [facility] [address] [place] [address] [place] LDL Cholesterol,Calculated 77 mg/dL Normal 0-100 [facility] Comment on above: Order Comment: FASTI NG N Result Comment: LDL ATP III CLASSIFICATION LDL less than 100 mg/dL Optimal LDL 100-129 mg/dL Near or above optimal LDL 130-159 mg/dL Borderline high LDL 160-189 mg/dL High LDL greater than 189 mg/dL Very high Performed By: #### C MP, CBC, ACET, TOSHIA, ETOH #### [facility] [address] [place] [address] [place] Triglyceride w/Reflex 186 mg/dL High 35-149 [facility] Comment on above: Order Comment: FASTI NG N Result Comment: TRIG ATP III CLASSIFICATION TRIG less than 150 mg/dL Normal TRIG 150-199 mg/dL Borderline high TRIG 200-500 mg/dL High TRIG greater than 500 mg/dL Very high Standard traceable to the Center for Disease Conrtrol and Prevention (CDC) test method. Performed By: #### C MP, CBC, ACET, TOSHIA, ETOH #### [facility] [address] VLDL CHOLESTEROL 37 mg/dL Normal [facility] Comment on above: Order Comment: FASTI NG N Performed By: #### C MP, CBC, ACET, TOSHIA, ETOH #### [facility] [address] Lymphocytes Auto (Bld) [#/Vo l]Ordered By: Chas Hoyos on 07-11-2022 Lymphocytes (Bld) [#/Vol] 1.7 10*3/uL 1.00-4.8 [facility] Lymphocytes/100 WBC Auto (Bl d)Ordered By: Chas Hoyos on 07-11-2022 Lymphocytes/100 WBC (Bld) 22.4 % . [facility] MCH Auto (RBC) [Entitic mass ]Ordered By: Chas Hoyos on 07-11-2022 MCH (RBC) [Entitic mass] 30.1 pg 27.5-35.2 [facility] MCHC Auto (RBC) [Mass/Vol]Or dered By: Chas Hoyos on 07-11-2022 MCHC (RBC) [Mass/Vol] 33.0 g/dL 32.5-35.6 [facility] MCV Auto (RBC) [Entitic vol] Ordered By: Chas Hoyos on 07-11-2022 MCV (RBC) [Entitic vol] 91.4 fL 83.5-101 [facility] Magnesiumon 07-11-2022 Magnesium [Mass/Vol] 2.0 mg/dL Normal 1.6-2.6 [facility] Comment on above: Result Comment: PERF ORMED BY: [facility] [address] [place] [address] PATHOLOGIST ALGOLOGIST TIMUR PHILLIPS M.D. Performed By: #### C MP, CBC, ACET, TOSHIA, ETOH #### [facility] [address] [place] [address] [place] Monocytes Auto (Bld) [#/Vol] Ordered By: Chas Hoyos on 07-11-2022 Monocytes (Bld) [#/Vol] 1.3 10*3/uL 0.0-0.8 [facility] Monocytes/100 WBC Auto (Bld) Ordered By: Chas Hoyos on 07-11-2022 Monocytes/100 WBC (Bld) 17.0 % . [facility] Neutrophils Auto (Bld) [#/Vo l]Ordered By: Chas Hoyos on 07-11-2022 Neutrophils (Bld) [#/Vol] 4.5 10*3/uL 1.8-7.7 [facility] Neutrophils/100 WBC Auto (Bl d)Ordered By: Chas Hoyos on 07-11-2022 Neutrophils/100 WBC (Bld) 58.4 % . [facility] No Panel InformationOrdered By: Cleveland Foreman on 07-11-2022 Estimated GFR () > 60 mL/Min [facility] Comment on above: GFR estimated refere nce range: According to KDOQI guidelines, <60 ml/min/1.73m2 is sufficient to diagnose a patient with chronic kidney disease. Pharmacy Creatinine Clearance (Chem 82.08 [facility] Nucleated erythrocytes [Pres ence] in Blood by Automated countOrdered By: Chas Hoyos on 07-11-2022 Nucleated RBC Auto Ql (Bld) 0.1 /100{WBC} 0-0.5 [facility] Partial Thromboplastin Timeo n 07-11-2022 aPTT Coag (Bld) [Time] 31.6 s Normal 25.1-36.5 [facility] Comment on above: Result Comment: PERF ORMED BY: [place] [address] PATHOLOGIST ALGOLOGIST TIMUR PHILLIPS M.D. Performed By: #### C MP, CBC, ACET, TOSHIA, ETOH #### [facility] [address] [place] [address] Platelet mean volume Auto (B ld) [Entitic vol]Ordered By: Chas Hoyos on 07-11-2022 Platelet mean volume (Bld) [Entitic vol] 7.2 fL 6.6-10.1 [facility] Platelet poor plasma interna tional normalized ratio (INR) by coagulation assay (relatOrdered By: Cleveland Foreman on 07-11-2022 INR Coag (PPP) [Relative time] 1.0 {INR} [facility] Comment on above: INR Therapeutic Rang e A) Pre- and Peroperative OAT started two weeks before surgery. NOT HIP SURGERY: 1.5 - 2.5 HIP SURGERY: 2 - 3B) Primary and secondary prevention of venous THROMBOSIS: 2 - 3C) Active venous thrombosis, pulmonary embolismand prevention of recurrent venous thrombosis: 2 - 3D) Prevention of arterial thromboembolismincluding patients with mechanical heart valves: 3 - 4.5 Platelets Auto (Bld) [#/Vol] Ordered By: Chas Hoyos on 07-11-2022 Platelets (Bld) [#/Vol] 291 10*3/uL 150-450 [facility] Protein [Mass/volume] in Ser um or PlasmaOrdered By: Cleveland Foreman on 07-11-2022 Protein [Mass/Vol] 6.0 g/dL 6.1-7.9 [facility] Prothrombin Time INRon 07-11 INR Coag (PPP) [Relative time] 1.0 {INR} Normal [facility] Comment on above: Result Comment: INR Therapeutic Range A) Pre- and Peroperative OAT started two weeks before surgery. NOT HIP SURGERY: 1.5 - 2.5 HIP SURGERY: 2 - 3 B) Primary and secondary prevention of venous THROMBOSIS: 2 - 3 C) Active venous thrombosis, pulmonary embolism and prevention of recurrent venous thrombosis: 2 - 3 D) Prevention of arterial thromboembolism including patients with mechanical heart valves: 3 - 4.5 Performed By: #### C MP, CBC, ACET, TOSHIA, ETOH #### [facility] [address] PT Coag (PPP) [Time] 11.5 s Normal 9.0-12.9 [facility] Comment on above: Performed By: #### C MP, CBC, ACET, TOSHIA, ETOH #### [facility] [address] RBC Auto (Bld) [#/Vol]Ordere d By: Chas Hoyos on 07-11-2022 RBC (Bld) [#/Vol] 4.64 10*6/uL 3.90-5.60 [facility] Serum Treponema pallidum ant ibody detection by immunofluorescenceOrdered By: Cleveland Foreman on 07-11-2022 T. pallidum Ab IF Ql (S) Non-Reactive Non React birgit [facility] Comment on above: Performed at: [place] [id number] Director: Stefano Miles PhD, Phone: [phone] Serum or plasma alanine mason otransferase measurement without P-5'-P (enzymatic activiOrdered By: Cleveland Foreman on 07-11-2022 ALT No additional P-5'-P [Ca talytic activity/Vol] 34 U/L [facility] Serum or plasma albumin/glob ulin mass ratioOrdered By: Cleveland Foreman on 07-11-2022 Albumin/Globulin [Mass ratio] 1.4 {ratio} [facility] Serum or plasma alkaline nancy sphatase measurement (enzymatic activity/volume)Ordered By: Cleveland Foreman on 07-11-2022 ALP [Catalytic activity/Vol] 105 U/L [facility] Serum or plasma anion gap de terminationOrdered By: Cleveland Foreman on 07-11-2022 Anion gap [Moles/Vol] 11.0 mmol/L 6.0-15.0 [facility] Serum or plasma aspartate am inotransferase measurement (enzymatic activity/volume)Ordered By: Cleveland Foreman on 07-11-2022 AST [Catalytic activity/Vol] 32 U/L [facility] Serum or plasma calcium hugo urement (mass/volume)Ordered By: Cleveland Foreman on 07-11-2022 Calcium [Mass/Vol] 8.6 mg/dL 8.2-10.2 [facility] Serum or plasma chloride raji surement (moles/volume)Ordered By: Cleveland Foreman on 07-11-2022 Chloride [Moles/Vol] 108 mmol/L 95-114 [facility] Serum or plasma glucose hugo urement (mass/volume)Ordered By: Cleveland Foreman on 07-11-2022 Glucose [Mass/Vol] 111 mg/dL 70-100 [facility] Comment on above: ADA recommended refe rence rangeRandom Glucose Reference Range is dependent on time and content of last meal. Glucose of more than 200 mg/dL in a nonstressed, ambulatory subject supports the diagnosis of Diabetes Mellitus. Serum or plasma high density lipoprotein (HDL) cholesterol measurementOrdered By: Cleveland Foreman on 07-11-2022 Cholesterol in HDL [Mass/Vol] 57 mg/dL 29-71 [facility] Comment on above: HDL CHOL ATP-III CLA SSIFICATION Cardiovascular RiskHDL > or equal to 60 mg/dL LOWHDL < 40 mg/dL HIGH Serum or plasma non-glucuron idated bilirubin measurement (mass/volume)Ordered By: Cleveland Foreman on 07-11-2022 Bilirubin.indirect [Mass/Vol] 0.7 mg/dL [facility] Serum or plasma potassium me asurement (moles/volume)Ordered By: Cleveland Foreman on 07-11-2022 Potassium [Moles/Vol] 4.6 mmol/L 3.5-5.1 [facility] Serum or plasma sodium measu rement (moles/volume)Ordered By: Cleveland Foreman on 07-11-2022 Sodium [Moles/Vol] 135 mmol/L 136-146 [facility] Serum or plasma thyroxine (T 4) measurement (mass/volume)Ordered By: Cleveland Foreman on 07-11-2022 T4 [Mass/Vol] 7.62 ug/dL 5.39-11.82 [facility] Serum or plasma total biliru bin measurement (mass/volume)Ordered By: Cleveland Foreamn on 07-11-2022 Bilirubin [Mass/Vol] 1.0 mg/dL 0.3-1.2 [facility] Serum or plasma total carbon dioxide measurement (moles/volume)Ordered By: Cleveland Foreman on 07-11-2022 CO2 [Moles/Vol] 20.6 mmol/L 22.0-30.0 [facility] Serum or plasma total choles terol/high density lipoprotein (HDL) cholesterol mass ratOrdered By: Cleveland Foreman on 07-11-2022 Cholesterol.total/Cholestero l in HDL [Mass ratio] 3.0 {ratio} <5.0 [facility] Serum or plasma urea nitroge n measurement (mass/volume)Ordered By: Cleveland Foreman on 07-11-2022 Urea nitrogen [Mass/Vol] 23 mg/dL 04-04 [facility] TSH DL <= 0.005 mIU/L QnOrde red By: Cleveland Foreman on 07-11-2022 TSH Qn 0.78 m[IU]/L 0.45-5.33 [facility] Thyroid Stimulating Hormoneo n 07-11-2022 TSH Qn 0.78 m[IU]/L Normal 0.45-5.33 [facility] Comment on above: Result Comment: PERF ORMED BY: [place] [address] PATHOLOGIST ALGOLOGIST TIMUR PHILLIPS M.D. Performed By: #### C MP, CBC, ACET, TOSHIA, ETOH #### [facility] [address] Thyroxine (T4) Totalon 07-11 T4 [Mass/Vol] 7.62 ug/dL Normal 5.39-11.82 [facility] Comment on above: Order Comment: FASTI NG N Result Comment: PERF ORMED BY: [facility] [address] [place] [address] PATHOLOGIST ALGOLOGIST TIMUR PHILLIPS M.D. Performed By: #### C MP, CBC, ACET, TOSHIA, ETOH #### [address] Thyroxine (T4) free [Mass/vo lume] in Serum or PlasmaOrdered By: Cleveland Foreman on 07-11-2022 Free T4 [Mass/Vol] 0.65 ng/dL 0.61-1.12 [facility] Treponema pallidum Ab(FTA-AB S)on 07-11-2022 Treponema pallidum Ab(FTA-ABS) Non-Reactive Normal Non Reactive [facility] Comment on above: Result Comment: Perf ormed at: CB - [facility] [address] [id number] Filling Carrier: Stefano Miles PhD, Phone: [phone] PERFORMED BY: [place] [address] PATHOLOGIST ALGOLOGIST TIMUR PHILLIPS M.D. Performed By: #### C MP, CBC, ACET, TOSHIA, ETOH #### [address] Triglyceride [Mass/volume] i n Serum or PlasmaOrdered By: Cleveland Foreman on 07-11-2022 Triglyceride [Mass/Vol] 186 mg/dL 35-149 [facility] Comment on above: TRIG ATP III CLASSIF ICATIONTRIG less than 150 mg/dL NormalTRIG 150-199 mg/dL Borderline highTRIG 200-500 mg/dL High TRIG greater than 500 mg/dL Very highStandard traceable to the Center for Disease Conrtrol and Prevention (CDC) test method. Vit. B12/Folate Profileon Cobalamin (Vitamin B12) [Mass/Vol] 269 pg/mL Normal 180-914 [facility] Comment on above: Order Comment: FASTI NG N Performed By: #### C MP, CBC, ACET, TOSHIA, ETOH #### [address] Folate > 22.3 Normal >5.9 [facility] Comment on above: Order Comment: FASTI NG N Result Comment: Carey te reference range: >5.9 ng/ml The WHO technical consultation on folate and vitamin b12 deficiencies has determined that folate concentrations less than 4 ng/ml are considered deficient. Performed By: #### C MP, CBC, ACET, TOSHIA, ETOH #### [address] Vitamin B1 (Thiamine) Bloodo n 07-11-2022 Vitamin B1 (Thiamine) Blood 138.5 Normal 66.5-200 .0 [facility] Comment on above: Result Comment: This test was developed and its performance characteristics determined by [facility]. It has not been cleared or approved by the Food and Drug Administration. Performed at: [facility] [address] [id number] Filling Carrier: Teresa Licona MD, Phone: [phone] Performed By: #### C MP, CBC, ACET, TOSHIA, ETOH #### [address] WBC Auto (Bld) [#/Vol]Ordere d By: Chas Hoyos on 07-11-2022 WBC (Bld) [#/Vol] 7.7 10*3/uL 4.1-10.5 [facility] XR cervical spine 2Von 07-11 XR cervical spine 2V [facility] [place] [address] XRay Report Signed Patient: Edward Crowder MR#: [id number] 364 : 1970 Acct:[id number] Age/Sex: 52 / M ADM Date: 07/10/22 Loc: Room: [address] [place] [address] Type: ADM INOo Attending Dr: Cleveland Foreman DO Copies to: Cleveland Foreman DO Ordering Provider: Cleveland Foreman DO Date of Service: 07/11/22 XR/XR cervical spine 2V: headaches, left sided neck pain CERVICAL SPINE 2 views: CLINICAL HISTORY: Left-sided neck pain, attempted suicide by overdose. COMPARISON: None FINDINGS: Anterior fusion hardware C4-C7 without evidence of hardware complication. Vertebral body remaining disc space heights appear maintained through the level of C6-7. C7-T1 is not visualized. No prevertebral soft tissue swelling. XR/XR cervical spine 2V IMPRESSION: NO EVIDENCE OF HARDWARE COMPLICATION OR ACUTE PROCESS. Impression dictated by: Edward Almonte Jr., D.OJanet07/11/2022 3:11 PM Dictation Location: [place] [address] Transcribed By: [facility] 07/11/22 151 Dictated By: Edward Almonte Jr, 07/11/22 1510 Signed By: 07/11/22 1511 Normal [facility] Acetaminophenon 07-10-2022 Acetaminophen [Mass/Vol] ug/mL Low 10.0-30.0 [facility] Comment on above: Result Comment: PERF ORMED BY: [place] [address] PATHOLOGIST ALGOLOGIST TIMUR PHILLIPS M.D. Performed By: #### C MP, CBC, ACET, TOSHIA, ETOH #### [address] Amphetamine Screen Ql (U)Ord ered By: Steve Almendarez on 07-10-2022 Amphetamines Ql (U) Negative Negative [facility] Barbiturates [Presence] in U rineOrdered By: Steve Almendarez on 07-10-2022 Barbiturates Ql (U) Negative Negative [facility] Basophils Auto (Bld) [#/Vol] Ordered By: Steve Almendarez on 07-10-2022 Basophils (Bld) [#/Vol] 0.0 10*3/uL 0.0-0.2 [facility] Basophils/100 WBC Auto (Bld) Ordered By: Steve Almendarez on 07-10-2022 Basophils/100 WBC (Bld) 0.4 % . [facility] Benzodiazepines [Presence] i n UrineOrdered By: Steve Almendarez on 07-10-2022 Benzodiazepines Ql (U) Positive Negative [facility] Bilirubin Test strip Ql (U)O rdered By: Steve Almendarez on 07-10-2022 Bilirubin Ql (U) Negative Negative [facility] Body fluid albumin measureme nt (mass/volume)Ordered By: Steve Almendarez on 07-10-2022 Albumin (Body fld) [Mass/Vol] 4.0 g/dL 3.2-5. 5 [facility] Cannabinoids [Presence] in U rine by Screen methodOrdered By: Stevefanny Almendarez on 07-10-2022 Cannabinoids Screen Ql (U) Negative Negative [facility] Comment on above: These are unconfirme d results and should not be used for legal purposes. Drug Cut-Off Concentration: AMPH 1000 ng/mL TOMÁS 200 ng/mL SWETHA 200 ng/mL COCM 300 ng/mL OP 300 ng/mL PCP 25 ng/mL THC 20 ng/mL Color Auto (U)Ordered By: Rico Almendarez on 07-10-2022 Color (U) Yellow Yellow [facility] Complete Blood Count Auto Di ffon 07-10-2022 Basophils (Bld) [#/Vol] 0.0 10*3/uL Normal 0.0-0.2 [facility] Comment on above: Result Comment: PERF ORMED BY: [place] [address] PATHOLOGIST ALGOLOGIST TIMUR PHILLIPS M.D. Performed By: #### C MP, CBC, ACET, TOSHIA, ETOH #### [facility] [address] Basophils/100 WBC (Bld) 0.4 % Normal . [facility] Comment on above: Performed By: #### C MP, CBC, ACET, TOSHIA, ETOH #### [facility] [address] [place] [address] [place] Eosinophils (Bld) [#/Vol] 0.0 10*3/uL Normal 0.0-0.45 [facility] Comment on above: Performed By: #### C MP, CBC, ACET, TOSHIA, ETOH #### [facility] [address] [place] [address] [place] Eosinophils/100 WBC (Bld) 0.1 % Normal . [facility] Comment on above: Performed By: #### C MP, CBC, ACET, TOSHIA, ETOH #### [facility] [address] [place] [address] [place] Erythrocyte distribution wid th (RBC) [Ratio] 14.5 % Normal 12.0-14.8 [facility] Comment on above: Performed By: #### C MP, CBC, ACET, TOSHIA, ETOH #### [address] Hematocrit (Bld) [Volume fraction] 43.8 % Normal 38.8-50.0 [facility] Comment on above: Performed By: #### C MP, CBC, ACET, TOSHIA, ETOH #### [address] Hemoglobin (Bld) [Mass/Vol] 14.7 g/dL Normal 13.0-17. 0 [facility] Comment on above: Performed By: #### C MP, CBC, ACET, TOSHIA, ETOH #### [address] Lymphocytes (Bld) [#/Vol] 1.2 10*3/uL Normal 1.00-4.8 [facility] Comment on above: Performed By: #### C MP, CBC, ACET, TOSHIA, ETOH #### [address] Lymphocytes/100 WBC (Bld) 13.3 % Normal . [facility] Comment on above: Performed By: #### C MP, CBC, ACET, TOSHIA, ETOH #### [address] MCH (RBC) [Entitic mass] 30.2 pg Normal 27.5-35.2 [facility] Comment on above: Performed By: #### C MP, CBC, ACET, TOSHIA, ETOH #### [address] MCV (RBC) [Entitic vol] 90.0 fL Normal 83.5-101 F [facility] Comment on above: Performed By: #### C MP, CBC, ACET, TOSHIA, ETOH #### [address] Mean Corpuscular HGB Conc 33.5 g/dL Normal 32.5-35.6 [facility] Comment on above: Performed By: #### C MP, CBC, ACET, TOSHIA, ETOH #### [address] Monocytes (Bld) [#/Vol] 1.0 10*3/uL High 0.0-0.8 [facility] Comment on above: Performed By: #### C MP, CBC, ACET, TOSHIA, ETOH #### [address] Monocytes/100 WBC (Bld) 15.55 % Normal 0.00-20.00 [facility] Comment on above: Performed By: #### C MP, CBC, ACET, TOSHIA, ETOH #### [address] Monocytes/100 WBC (Bld) 11.3 % Normal . [facility] Comment on above: Performed By: #### C MP, CBC, ACET, TOSHIA, ETOH #### [address] Neutrophils (Bld) [#/Vol] 6.9 10*3/uL Normal 1.8-7.7 [facility] Comment on above: Performed By: #### C MP, CBC, ACET, TOSHIA, ETOH #### [address] Neutrophils/100 WBC (Bld) 74.9 % Normal . [facility] Comment on above: Performed By: #### C MP, CBC, ACET, TOSHIA, ETOH #### [address] NRBC% 0.2 /100{WBC} Normal 0-0.5 [facility] Comment on above: Performed By: #### C MP, CBC, ACET, TOSHIA, ETOH #### [address] Platelet mean volume (Bld) [Entitic vol] 7.4 fL Normal 6.6-10.1 [facility] Comment on above: Performed By: #### C MP, CBC, ACET, TOSHIA, ETOH #### [address] Platelets (Bld) [#/Vol] 342 10*3/uL Normal 150-450 [facility] Comment on above: Performed By: #### C MP, CBC, ACET, TOSHIA, ETOH #### [address] RBC (Bld) [#/Vol] 4.87 10*6/uL Normal 3.90-5.60 [facility] Comment on above: Performed By: #### C MP, CBC, ACET, TOSHIA, ETOH #### [address] WBC (Bld) [#/Vol] 9.2 10*3/uL Normal 4.1-10.5 [facility] Comment on above: Performed By: #### C MP, CBC, ACET, TOSHIA, ETOH #### [address] Comprehensive Metabolic Pane darlene 07-10-2022 Albumin [Mass/Vol] 4.0 g/dL Normal 3.2-5.5 [facility] Comment on above: Performed By: #### C MP, CBC, ACET, TOSHIA, ETOH #### [address] Albumin/Globulin [Mass ratio] 1.5 {ratio} Normal [facility] Comment on above: Performed By: #### C MP, CBC, ACET, TOSHIA, ETOH #### [address] ALP [Catalytic activity/Vol] 93 U/L High 32-92 [facility] Comment on above: Performed By: #### C MP, CBC, ACET, TOSHIA, ETOH #### [address] ALT [Catalytic activity/Vol] 41 U/L Normal 10-60 [facility] Comment on above: Performed By: #### C MP, CBC, ACET, TOSHIA, ETOH #### [address] Anion gap [Moles/Vol] 15.4 mmol/L High 6.0-15.0 [facility] Comment on above: Performed By: #### C MP, CBC, ACET, TOSHIA, ETOH #### [facility] [address] [place] [address] AST [Catalytic activity/Vol] 29 U/L Normal 10-42 [facility] Comment on above: Performed By: #### C MP, CBC, ACET, TOSHIA, ETOH #### [facility] [address] [place] [address] Bilirubin [Mass/Vol] 0.6 mg/dL Normal 0.3-1.2 [facility] Comment on above: Performed By: #### C MP, CBC, ACET, TOSHIA, ETOH #### [address] Calcium [Mass/Vol] 8.9 mg/dL Normal 8.2-10.2 [facility] Comment on above: Performed By: #### C MP, CBC, ACET, TOSHIA, ETOH #### [facility] [address] [place] [address] Chloride [Moles/Vol] 103 mmol/L Normal 95-114 [facility] Comment on above: Performed By: #### C MP, CBC, ACET, TOSHIA, ETOH #### [facility] [address] [place] [address] CO2 [Moles/Vol] 22.6 mmol/L Normal 22.0-30.0 [facility] Comment on above: Performed By: #### C MP, CBC, ACET, TOSHIA, ETOH #### [facility] [address] [place] [address] Creatinine [Mass/Vol] 1.30 mg/dL High 0.64-1.27 [facility] Comment on above: Performed By: #### C MP, CBC, ACET, TOSHIA, ETOH #### [facility] [address] [place] [address] Creatinine Clr Calc Pharmacy 73.31 Normal [facility] Comment on above: Result Comment: PERF ORMED BY: [place] [id number] PATHOLOGIST ALGOLOGIST TIMUR PHILLIPS M.D. Performed By: #### C MP, CBC, ACET, TOSHIA, ETOH #### [address] Estimated GFR ( José > 60 [facility] Comment on above: Result Comment: GFR estimated reference range: According to KDOQI guidelines, <60 ml/min/1.73m2 is sufficient to diagnose a patient with chronic kidney disease. Performed By: #### C MP, CBC, ACET, TOSHIA, ETOH #### [address] Estimated GFR (Non- Am 58 Normal [facility] Comment on above: Performed By: #### C MP, CBC, ACET, TOSHIA, ETOH #### [address] Globulin (S) [Mass/Vol] 2.6 g/dL Normal [facility] Comment on above: Performed By: #### C MP, CBC, ACET, TOSHIA, ETOH #### [address] Glucose [Mass/Vol] 103 mg/dL High 70-100 [facility] Comment on above: Result Comment: [place] Glucose Reference Range is dependent on time and content of last meal. Glucose of more than 200 mg/dL in a nonstressed, ambulatory subject supports the diagnosis of Diabetes Mellitus. ADA recommended reference range Performed By: #### C MP, CBC, ACET, TOSHIA, ETOH #### [address] Potassium [Moles/Vol] 4.0 mmol/L Normal 3.5-5.1 [facility] Comment on above: Performed By: #### C MP, CBC, ACET, TOSHIA, ETOH #### [address] Protein [Mass/Vol] 6.6 g/dL Normal 6.1-7.9 [facility] Comment on above: Performed By: #### C MP, CBC, ACET, TOSHIA, ETOH #### [facility] [address] Sodium [Moles/Vol] 137 mmol/L Normal 136-146 [facility] Comment on above: Performed By: #### C MP, CBC, ACET, TOSHIA, ETOH #### [facility] [address] Urea nitrogen [Mass/Vol] 20 mg/dL Normal 9-23 [facility] Comment on above: Performed By: #### C MP, CBC, ACET, TOSHIA, ETOH #### [facility] [address] Creatinine and Glomerular fi ltration rate.predicted panel (S/P/Bld)Ordered By: Steve Almendarez on 07-10-2022 Creatinine [Mass/Vol] 1.30 mg/dL 0.64-1.27 [facility] Drug Screen,Urineon 07-10-20 Amphetamine Screen,Urine Negative Normal Negative [facility] Comment on above: Performed By: #### C MP, CBC, ACET, TOSHIA, ETOH #### [facility] [address] [place] [address] [place] Barbiturate Screen,Urine Negative Normal Negative [facility] Comment on above: Performed By: #### C MP, CBC, ACET, TOSHIA, ETOH #### [facility] [address] [place] [address] [place] Benzodiazepines Screen,Urine Positive High Negativ e [facility] Comment on above: Performed By: #### C MP, CBC, ACET, TOSHIA, ETOH #### [place] [address] [place] Cannabinoid Screen,Urine Negative Normal Negative [facility] Comment on above: Result Comment: Thes e are unconfirmed results and should not be used for legal purposes. Drug Cut-Off Concentration: AMPH 1000 ng/mL TOMÁS 200 ng/mL SWETHA 200 ng/mL COCM 300 ng/mL OP 300 ng/mL PCP 25 ng/mL THC 20 ng/mL PERFORMED BY: [place] [address] PATHOLOGIST ALGOLOGIST JIANLAN SUN M.D. Performed By: #### C MP, CBC, ACET, TOSHIA, ETOH #### [facility] [address] Cocaine Screen,Urine Negative Normal Negative [facility] Comment on above: Performed By: #### C MP, CBC, ACET, TOSHIA, ETOH #### [facility] [address] Opiate Screen,Urine Negative Normal Negative [facility] Comment on above: Performed By: #### C MP, CBC, ACET, TOSHIA, ETOH #### [facility] [address] [place] [address] [place] Phencyclidine Screen,Urine Negative Normal Negative [facility] Comment on above: Performed By: #### C MP, CBC, ACET, TOSHIA, ETOH #### [facility] [address] [place] [address] [place] ECG 12 lead ECGon 07-10-[address] [facility] [place] [address] [place] [address] Electrocardiograph Report Signed Patient: Edward Crowder MR#: [id number] 364 : 1970 Acct:[id number] Age/Sex: 52 / M ADM Date: 07/10/22 Loc: Room: [address] [place] [address] Type: DIS INOo Attending Dr: Cleveland Foreman DO Ordering Provider: Steve Almednarez PA-C Date of Service: 07/10/22 ECG/ECG 12 lead ECG: Psychiatric Symptoms Copies to: Test Reason : Blood Pressure : / mmHG Vent. Rate : 135 BPM Atrial Rate : 138 BPM P-R Int : 156 ms QRS Dur : 086 ms QT Int : 300 ms P-R-T Axes : 078 063 064 degrees QTc Int : 450 ms Undetermined rhythm Otherwise normal ECG When compared with ECG of 10-JUL-2019 16:48, Current undetermined rhythm precludes rhythm comparison, needs review Confirmed by Bello Sandoval DO ([id number]) on 07/10/2022 2:58:48 PM Referred By: Electronically Signed By:Bello Sandoval DO Transcribed By: MUS Signed By Bello Sandoval DO 2 1458 Normal [facility] Eosinophils Auto (Bld) [#/Vo l]Ordered By: Steve Almendarez on 07-10-2022 Eosinophils (Bld) [#/Vol] 0.0 10*3/uL 0.0-0.45 [facility] Eosinophils/100 WBC Auto (Bl d)Ordered By: Steve Almendarez on 07-10-2022 Eosinophils/100 WBC (Bld) 0.1 % . [facility] Erythrocyte distribution wid th Auto (RBC) [Ratio]Ordered By: Steve Almendarez on 07-10-2022 Erythrocyte distribution wid th (RBC) [Ratio] 14.5 % 12.0-14.8 [facility] Estimated glomerular filtrat ion rate (GFR) non- AmericanOrdered By: Steve Almendarez on 07-10-2022 GFR/1.73 sq M.predicted judy g non-blacks MDRD (S/P/Bld) [Vol rate/Area] 58 mL/Min [facility] Ethyl Alcohol Profileon 06-13 Ethanol [Mass/Vol] mg/dL Normal [facility] Comment on above: Performed By: #### C MP, CBC, ACET, TOSHIA, ETOH #### [facility] [address] Percent Ethanol Not performed Normal [facility] Comment on above: Result Comment: PERF ORMED BY: [place] [address] PATHOLOGIST ALGOLOGIST TIMUR PHILLIPS M.D. Performed By: #### C MP, CBC, ACET, TOSHIA, ETOH #### [facility] [address] [place] [address] [place] Globulin Calc (S) [Mass/Vol] Ordered By: Steve Almendarez on 07-10-2022 Globulin (S) [Mass/Vol] 2.6 g/dL F [facility] Hematocrit Auto (Bld) [Volum e fraction]Ordered By: Steve Almendarez on 07-10-2022 Hematocrit (Bld) [Volume fraction] 43.8 % 3 8.8-50.0 [facility] Hemoglobin [Mass/volume] in BloodOrdered By: Steve Almendarez on 07-10-2022 Hemoglobin (Bld) [Mass/Vol] 14.7 g/dL 13.0-17. 0 [facility] Ketones Auto test strip (U) [Mass/Vol]Ordered By: Steve Almendarez on 07-10-2022 Ketones (U) [Mass/Vol] Negative Negative [facility] - Drug toxicology Ordered By: Steve Almendarez on 07-10-2022 Opiates Ql (U) Negative Negative [facility] Leukocytes [#/volume] correc bia for nucleated erythrocytes in Blood by Automated counOrdered By: Steve Almendarez on 07-10-2022 WBC corrected for nucl RBC A uto (Bld) [#/Vol] 9.2 10*3/uL 4.1-10.5 [facility] Lymphocytes Auto (Bld) [#/Vo l]Ordered By: Steve Almendarez on 07-10-2022 Lymphocytes (Bld) [#/Vol] 1.2 10*3/uL 1.00-4.8 [facility] Lymphocytes/100 WBC Auto (Bl d)Ordered By: Steve Almendarez on 07-10-2022 Lymphocytes/100 WBC (Bld) 13.3 % . [facility] MCH Auto (RBC) [Entitic mass ]Ordered By: Steve Almendarez on 07-10-2022 MCH (RBC) [Entitic mass] 30.2 pg 27.5-35.2 [facility] MCHC Auto (RBC) [Mass/Vol]Or dered By: Steve Almendarez on 07-10-2022 MCHC (RBC) [Mass/Vol] 33.5 g/dL 32.5-35.6 [facility] MCV Auto (RBC) [Entitic vol] Ordered By: Steve Almendarez on 07-10-2022 MCV (RBC) [Entitic vol] 90.0 fL 83.5-101 F [facility] Monocyte distribution width [Entitic volume] in Blood by AutomatedOrdered By: Steve Almendarez on 07-10-2022 Monocyte distribution width Auto (Bld) [Entitic vol] 15.55 % 0.00-20.00 [facility] Monocytes Auto (Bld) [#/Vol] Ordered By: Steve Almendarez on 07-10-2022 Monocytes (Bld) [#/Vol] 1.0 10*3/uL 0.0-0.8 [facility] Monocytes/100 WBC Auto (Bld) Ordered By: Steve Almendarez on 07-10-2022 Monocytes/100 WBC (Bld) 11.3 % . F [facility] Neutrophils Auto (Bld) [#/Vo l]Ordered By: Steve Almendarez on 07-10-2022 Neutrophils (Bld) [#/Vol] 6.9 10*3/uL 1.8-7.7 [facility] Neutrophils/100 WBC Auto (Bl d)Ordered By: Steve Almendarez on 07-10-2022 Neutrophils/100 WBC (Bld) 74.9 % . [facility] Nitrite Test strip Ql (U)Ord ered By: Steve Almendarez on 07-10-2022 Nitrite Ql (U) Negative Negative [facility] No Panel InformationOrdered By: Steve Almendarez on 07-10-2022 Estimated GFR () > 60 mL/Min [facility] Comment on above: GFR estimated refere nce range: According to KDOQI guidelines, <60 ml/min/1.73m2 is sufficient to diagnose a patient with chronic kidney disease. Pharmacy Creatinine Clearance (Chem 73.31 [facility] Nucleated erythrocytes [Pres ence] in Blood by Automated countOrdered By: Steve Almendarez on 07-10-2022 Nucleated RBC Auto Ql (Bld) 0.2 /100{WBC} 0-0.5 [facility] Phencyclidine Screen Ql (U)O rdered By: Steve Almendarez on 07-10-2022 Phencyclidine Ql (U) Negative Negative [facility] Platelet mean volume Auto (B ld) [Entitic vol]Ordered By: Steve Almendarez on 07-10-2022 Platelet mean volume (Bld) [Entitic vol] 7.4 fL 6.6-10.1 [facility] Platelets Auto (Bld) [#/Vol] Ordered By: Steve Almendarez on 07-10-2022 Platelets (Bld) [#/Vol] 342 10*3/uL 150-450 [facility] Protein Auto test strip (U) [Mass/Vol]Ordered By: Steve Almendarez on 07-10-2022 Protein (U) [Mass/Vol] Negative Negative [facility] Protein [Mass/volume] in Ser um or PlasmaOrdered By: Steve Almendarez on 07-10-2022 Protein [Mass/Vol] 6.6 g/dL 6.1-7.9 [facility] RBC Auto (Bld) [#/Vol]Ordere d By: Steve Almendarez on 07-10-2022 RBC (Bld) [#/Vol] 4.87 10*6/uL 3.90-5.60 [facility] Salicylateon 07-10-2022 Salicylate < 4.0 Low 15.0-30.0 [facility] Comment on above: Result Comment: Yumi ents treated with Sulfasalazine may generate a false high result for Salicylate. Patients treated with Sulfapyridine may generate a false low result for Salicylate. Performed By: #### C MP, CBC, ACET, TOSHIA, ETOH #### [address] Salicylates [Mass/volume] in Serum or PlasmaOrdered By: Steve Almendarez on 07-10-2022 Salicylates [Mass/Vol] mg/dL 15.0-30.0 [facility] Comment on above: Patients treated wit h Sulfasalazine may generate a false high result for Salicylate.Patients treated with Sulfapyridine may generate a false low result for Salicylate. Serum or plasma acetaminophe n measurement (mass/volume)Ordered By: Steve Almendarez on 07-10-2022 Acetaminophen [Mass/Vol] ug/mL 10.0-30.0 [facility] Serum or plasma alanine mason otransferase measurement without P-5'-P (enzymatic activiOrdered By: Steve Almendarez on 07-10-2022 ALT No additional P-5'-P [Ca talytic activity/Vol] 41 U/L 1060 [facility] Serum or plasma albumin/glob ulin mass ratioOrdered By: Steve Almendarez on 07-10-2022 Albumin/Globulin [Mass ratio] 1.5 {ratio} [facility] Serum or plasma alkaline nancy sphatase measurement (enzymatic activity/volume)Ordered By: Steve Almendarez on 07-10-2022 ALP [Catalytic activity/Vol] 93 U/L 32-92 [facility] Serum or plasma anion gap de terminationOrdered By: Steve Almendarez on 07-10-2022 Anion gap [Moles/Vol] 15.4 mmol/L 6.0-15.0 [facility] Serum or plasma aspartate am inotransferase measurement (enzymatic activity/volume)Ordered By: Steve Almendarez on 07-10-2022 AST [Catalytic activity/Vol] 29 U/L 10-42 [facility] Serum or plasma calcium hugo urement (mass/volume)Ordered By: Steve Almendarez on 07-10-2022 Calcium [Mass/Vol] 8.9 mg/dL 8.2-10.2 [facility] Serum or plasma chloride raji surement (moles/volume)Ordered By: Steve Almendarez on 07-10-2022 Chloride [Moles/Vol] 103 mmol/L 95-114 [facility] Serum or plasma ethanol hugo urement (mass/volume)Ordered By: Steve Almendarez on 07-10-2022 Ethanol [Mass/Vol] mg/dL [facility] Ethanol [Mass/Vol] TNP [facility] Comment on above: Test not performed Serum or plasma glucose hugo urement (mass/volume)Ordered By: Steve Almendarez on 07-10-2022 Glucose [Mass/Vol] 103 mg/dL 70-100 [facility] Comment on above: ADA recommended refe rence rangeRandom Glucose Reference Range is dependent on time and content of last meal. Glucose of more than 200 mg/dL in a nonstressed, ambulatory subject supports the diagnosis of Diabetes Mellitus. Serum or plasma potassium me asurement (moles/volume)Ordered By: Steve Almendarez on 07-10-2022 Potassium [Moles/Vol] 4.0 mmol/L 3.5-5.1 [facility] Serum or plasma sodium measu rement (moles/volume)Ordered By: Steve Almendarez on 07-10-2022 Sodium [Moles/Vol] 137 mmol/L 136-146 [facility] Serum or plasma total biliru bin measurement (mass/volume)Ordered By: Steve Almendarez on 07-10-2022 Bilirubin [Mass/Vol] 0.6 mg/dL 0.3-1.2 [facility] Serum or plasma total carbon dioxide measurement (moles/volume)Ordered By: Steve Almendarez on 07-10-2022 CO2 [Moles/Vol] 22.6 mmol/L 22.0-30.0 [facility] Serum or plasma urea nitroge n measurement (mass/volume)Ordered By: Steve Almendarez on 07-10-2022 Urea nitrogen [Mass/Vol] 20 mg/dL 04-04 [facility] Specific gravity Auto test s trip (U) [Rel density]Ordered By: Steve Almendarez on 07-10-2022 Specific gravity (U) [Rel density] 1.019 1.001-1.030 [facility] Urinalysison 07-10-2022 Appearance (U) Clear Normal Clear [facility] Comment on above: Order Comment: Name Collection Type:: Clean-Voided Midstream Performed By: #### C MP, CBC, ACET, TOSHIA, ETOH #### [facility] [address] [place] [address] [place] Bilirubin,Urine Negative Normal Negative [facility] Comment on above: Order Comment: Name Collection Type:: Clean-Voided Midstream Performed By: #### C MP, CBC, ACET, TOSHIA, ETOH #### [facility] [address] [place] [id number] [place] Color (U) Yellow Normal Yellow [facility] Comment on above: Order Comment: Name Collection Type:: Clean-Voided Midstream Performed By: #### C MP, CBC, ACET, TOSHIA, ETOH #### [facility] [address] [place] [id number] [place] Glucose Ql (U) Normal Normal Normal [facility] Comment on above: Order Comment: Name Collection Type:: Clean-Voided Midstream Performed By: #### C MP, CBC, ACET, TOSHIA, ETOH #### [facility] [address] [place] [id number] [place] Ketones Ql (U) Negative Normal Negative [facility] Comment on above: Order Comment: Name Collection Type:: Clean-Voided Midstream Performed By: #### C MP, CBC, ACET, TOSHIA, ETOH #### [address] Leukocyte esterase Test stri p Ql (U) Negative Normal Negative [facility] Comment on above: Order Comment: Name Collection Type:: Clean-Voided Midstream Performed By: #### C MP, CBC, ACET, TOSHIA, ETOH #### [address] Nitrite,Urine Negative Normal Negative [facility] Comment on above: Order Comment: Name Collection Type:: Clean-Voided Midstream Performed By: #### C MP, CBC, ACET, TOSHIA, ETOH #### [address] Occult Blood,Urine Negative Normal Negative [facility] Comment on above: Order Comment: Name Collection Type:: Clean-Voided Midstream Result Comment: PERF ORMED BY: [place] [address] PATHOLOGIST ALGOLOGIST TIMUR PHILLIPS M.D. Performed By: #### C MP, CBC, ACET, TOSHIA, ETOH #### [address] pH (U) 6.0 [pH] Normal 5.0-9.0 [facility] Comment on above: Order Comment: Name Collection Type:: Clean-Voided Midstream Performed By: #### C MP, CBC, ACET, TOSHIA, ETOH #### [address] Protein,Urine Negative Normal Negative [facility] Comment on above: Order Comment: Name Collection Type:: Clean-Voided Midstream Performed By: #### C MP, CBC, ACET, TOSHIA, ETOH #### [address] Specificy [place],Urine 1.019 Normal 1.001-1.030 [facility] Comment on above: Order Comment: Name Collection Type:: Clean-Voided Midstream Performed By: #### C MP, CBC, ACET, TOSHIA, ETOH #### [facility] [address] [place] [address] [place] Urobilinogen,Urine Normal Normal Normal [facility] Comment on above: Order Comment: Name Collection Type:: Clean-Voided Midstream Performed By: #### C MP, CBC, ACET, TOSHIA, ETOH #### [facility] [address] [place] [address] [place] Urine clarity by refractomet ry automatedOrdered By: Steve Almendarez on 07-10-2022 Clarity Refractometry automated (U) Clear Clear [facility] Urine cocaine detectionOrder ed By: Steve Almendarez on 07-10-2022 Cocaine Ql (U) Negative Negative [facility] Urine glucose measurement by automated test strip (mass/volume)Ordered By: Steve Almendarez on 07-10-2022 Glucose Auto test strip (U) [Mass/Vol] Normal mg/dL Normal [facility] Urine hemoglobin detection b y automated test stripOrdered By: Steve Almendarez on 07-10-2022 Hemoglobin Auto test strip Ql (U) Negative Ne gative [facility] Urine leukocyte esterase det ection by automated test stripOrdered By: Steve Almendarez on 07-10-2022 Leukocyte esterase Auto test strip Ql (U) Negative Negative [facility] Urobilinogen Auto test strip (U) [Mass/Vol]Ordered By: Steve Almendarez on 07-10-2022 Urobilinogen (U) [Mass/Vol] Normal mg/dL Normal [facility] WBC Auto (Bld) [#/Vol]Ordere d By: Steve Almendarez on 07-10-2022 WBC (Bld) [#/Vol] 9.2 10*3/uL 4.1-10.5 [facility] pH Auto test strip (U)Ordere d By: Steve Almendarez on 07-10-2022 pH (U) 6.0 [pH] 5.0-9.0 [facility] ACUTE TOXICOLOGY PANEL, BLOO Don 07-01-2022 Acetaminophen [Mass/Vol] ug/mL Normal 10.0 - 30.0 [facility] Comment on above: Performed By: #### H EPFP #### [address] [id number] Ethanol [Mass/Vol] mg/dL Normal [facility] Comment on above: Result Comment: FOR MEDICAL USE ONLY. . REF VALUES <10 Performed By: #### H EPFP #### [address] [id number] SALICYLATE <3 Normal 4 - 20 [facility] Comment on above: Performed By: #### H EPFP #### [address] [phone] CBC AND DIFFERENTIALon 07-01 % AUTOMATED IMMATURE GRAN 0.3 % Normal 0.0 - 0.9 [facility] Comment on above: Result Comment: Beatriz ture Granulocyte Count (IG) includes promyelocytes, myelocytes and metamyelocytes but does not include bands. Percent differential counts (%) should be interpreted in the context of the absolute cell counts (cells/L). Performed By: #### C BCDF ####[address] [place], [place] [phone] Basophils (Bld) [#/Vol] 0.02 10*3/uL Normal 0.00 - 0.1 0 [facility] Comment on above: Performed By: #### C BCDF ####[address] [place], [place] [phone] Basophils/100 WBC (Bld) 0.2 % Normal 0.0 - 2.0 [facility] Comment on above: Performed By: #### C BCDF ####[facility] [place], [place] [phone] Eosinophils (Bld) [#/Vol] 0.10 10*3/uL Normal 0.00 - 0 .70 [facility] Comment on above: Performed By: #### C BCDF ####[address] [place], [place] [phone] Eosinophils/100 WBC (Bld) 1.1 % Normal 0.0 - 6.0 [facility] Comment on above: Performed By: #### C BCDF ####[address] [id number] Erythrocyte distribution wid th (RBC) [Ratio] 14.5 % Normal 11.5 - 14.5 [facility] Comment on above: Performed By: #### C BCDF ####[address] [id number] Hematocrit (Bld) [Volume fraction] 45.3 % Normal 4 1.0 - 52.0 [facility] Comment on above: Performed By: #### C BCDF ####[address] [id number] Hemoglobin (Bld) [Mass/Vol] 15.1 g/dL Normal 13.5 - 1 7.5 [facility] Comment on above: Performed By: #### C BCDF ####[address] [id number] Lymphocytes (Bld) [#/Vol] 1.18 10*3/uL Low 1.20 - 4 .80 [facility] Comment on above: Performed By: #### C BCDF ####[address] [id number] Lymphocytes/100 WBC (Bld) 13.0 % Normal 13.0 - 44. 0 [facility] Comment on above: Performed By: #### C BCDF ####[address] [phone] MCHC (RBC) [Mass/Vol] 33.3 g/dL Normal 32.0 - 36.0 [facility] Comment on above: Performed By: #### C BCDF ####[address] [phone] MCV (RBC) [Entitic vol] 91 fL Normal 80 - 100 [facility] Comment on above: Performed By: #### C BCDF ####[address] [id number] Monocytes (Bld) [#/Vol] 1.08 10*3/uL High 0.10 - 1.0 0 [facility] Comment on above: Performed By: #### C BCDF ####[facility] [place], [place] [phone] Monocytes/100 WBC (Bld) 11.9 % Normal 2.0 - 10.0 [facility] Comment on above: Performed By: #### C BCDF ####[facility] [place], [place] [phone] Neutrophils (Bld) [#/Vol] 6.66 10*3/uL Normal 1.20 - 7 .70 [facility] Comment on above: Performed By: #### C BCDF ####[facility] [place], [place] [phone] Neutrophils/100 WBC (Bld) 73.5 % Normal 40.0 - 80. 0 [facility] Comment on above: Performed By: #### C BCDF ####[facility] [place], [place] [phone] Platelets (Bld) [#/Vol] 294 10*3/uL Normal 150 - 450 [facility] Comment on above: Performed By: #### C BCDF ####[address] [place], [place] [id number] RBC 4.96 x10E12/L Normal 4.50 - 5.90 [facility] Comment on above: Performed By: #### C BCDF ####[facility] [place], [place] [phone] WBC (Bld) [#/Vol] 9.1 10*3/uL Normal 4.4 - 11.3 [facility] Comment on above: Performed By: #### C BCDF ####[facility] [place], [place] [phone] COMPREHENSIVE PANELon 2021 Albumin [Mass/Vol] 4.2 g/dL Normal 3.4 - 5.0 [facility] Comment on above: Performed By: #### L ACT #### [address] [id number] ALP [Catalytic activity/Vol] 99 U/L Normal 33 - 12 0 [facility] Comment on above: Performed By: #### L ACT #### [address] [phone] ALT [Catalytic activity/Vol] 53 U/L High 10 - 52 [facility] Comment on above: Result Comment: Yumi ents treated with Sulfasalazine may generate falsely decreased results for ALT. Performed By: #### L ACT #### [address] [id number] Anion gap [Moles/Vol] 12 mmol/L Normal 10 - 20 [facility] Comment on above: Performed By: #### L ACT #### [address] [phone] AST [Catalytic activity/Vol] 32 U/L Normal 9 - 39 [facility] Comment on above: Performed By: #### L ACT #### [address] [id number] Bilirubin [Mass/Vol] 0.4 mg/dL Normal 0.0 - 1.2 [facility] Comment on above: Performed By: #### L ACT #### [address] [id number] Calcium [Mass/Vol] 9.1 mg/dL Normal 8.6 - 10.3 [facility] Comment on above: Performed By: #### L ACT #### [address] [id number] Chloride [Moles/Vol] 102 mmol/L Normal 98 - 107 [facility] Comment on above: Performed By: #### L ACT #### [address] [phone] Creatinine [Mass/Vol] 0.96 mg/dL Normal 0.50 - 1.30 [facility] Comment on above: Performed By: #### L ACT #### [address] [phone] eGFR MALE >90 Normal >90 [facility] Comment on above: Result Comment: CALCULATIONS OF ESTIMATE D GFR ARE PERFORMED USING THE 2020 CKD-EPI STUDY REFIT EQUATION WITHOUT THE RACE VARIABLE FOR THE IDMS-TRACEABLE CREATININE METHODS. https://jasn.asnjournals.org/content//ASN.9673877947 Performed By: #### L ACT #### [address] [id number] Glucose [Mass/Vol] 67 mg/dL Low 74 - 99 [facility] Comment on above: Performed By: #### L ACT #### [address] [phone] HCO3 (Bld) [Moles/Vol] 26 mmol/L Normal 21 - 32 [facility] Comment on above: Performed By: #### L ACT #### [address] [id number] Potassium [Moles/Vol] 3.8 mmol/L Normal 3.5 - 5.3 [facility] Comment on above: Performed By: #### L ACT #### [address] [id number] Protein [Mass/Vol] 7.4 g/dL Normal 6.4 - 8.2 [facility] Comment on above: Performed By: #### L ACT #### [address] [id number] Sodium [Moles/Vol] 136 mmol/L Normal 136 - 145 [facility] Comment on above: Performed By: #### L ACT #### [address] [phone] Urea nitrogen [Mass/Vol] 18 mg/dL Normal 6 - 23 [facility] Comment on above: Performed By: #### L ACT #### [address] [id number] CREATINE KINASEon 07-01-2022 CK [Catalytic activity/Vol] 88 U/L Normal 0 - 325 [facility] Comment on above: Performed By: #### H EPFP #### [facility] [address] [place], [place] [id number] Covid 19 Resultson 2 SARS-CoV-2 (COVID-19) RNA NESSA+probe Ql (Unsp spec) NEGATIVE COVID-19 Test Coronaviruses are common world-wide and are the cause of many common colds. SARS-COV2 is a new coronavirus that began circulating worldwide in 2019 so we are calling it COVID-19. It has been estimated that four out of five patients with COVID-19 will recover at home without the need for medical attention. Symptoms of COVID-19 may include cough, fever, shortness of breath, loss of taste or smell and other flu-like symptoms including chills, sore muscles, sore throat, and headache. Severe illness is more common in older people and people with other health problems such as high blood pressure, obesity, and immune system problems. If the test is positive, you have COVID-19. You will be contacted by the ordering physicians office and instructed to remain on home isolation, in accordance with CDC guidelines. You may also be contacted by the [facility] to see if any of your close contacts may have been exposed to the virus and need to quarantine. If the test is negative, you likely do not have COVID-19 at this time, but you still may have a different illness that can spread to other people (like Influenza, or the Flu) and could still be at risk for getting COVID-19. We recommend that you stay away from other people to limit the spread of illness until your symptoms are improving and you are fever-free for 24 hours without the use of fever lowering medications such as acetaminophen or ibuprofen. No test is 100% accurate so if you are still concerned you may have COVID-19, talk to your doctor about the need to continue to stay away from others. Medicines Unless your provider told you not to use the following: Acetaminophen (Tylenol and others) is generally safe. Anti-inflammatory medications, such as Ibuprofen (Advil or Motrin) or Naproxen (Aleve) can also be used. [id number] cough and cold medicines can be used according to the instructions on the package. Some onqq-sin-incgyul medicines also contain acetaminophen. Make sure you are not taking more than your recommended dose. For those not hospitalized, there is no specific treatment available for this illness. Antibiotics do not treat Coronaviruses. Follow-Up Follow up with your doctor by scheduling a virtual visit or consider follow-up at one of our urgent care fever clinics. If you are having difficulty breathing, or are very weak and having difficulty standing, this is a medical emergency. Call 911 or have someone take you to the nearest emergency room immediately. If possible, wear a facemask. Additional guidance from the CDC for patients who tested POSITIVE for COVID-19 How to isolate: Isolate yourself in a specific room at home and limit your contact with others. Use a separate bathroom from other members of the household, when possible. Leave home only to get essential medical care. Do not go to work, school or public areas. Avoid using public transportation, ride-sharing, or taxis. Restrict contact with pets and other animals. If you must care for your pet or be around animals while you are sick, wash your hands before and after your interaction and wear a facemask. Make sure that shared spaces in the home have good airflow, such as by an air conditioner or an opened window, weather permitting. Personal Hygiene Procedures: Wear a face mask when in the same room as other people or pets. If a face mask interferes with your breathing, others should wear a mask when sharing space with you. Frequent hand-washing: wash your hands with soap and water for at least 20 seconds. If soap and water are not available, use alcohol-based hand global recruiter. Avoid touching your eyes, nose, and mouth with unwashed hands. Household Hygiene Procedures: Avoid sharing personal household items such as dishes, glassware, cups, eating utensils, towels or bedding with other people or pets in your home. After use, these items should be washed with soap and hot water. Disinfect all high-touch surfaces every day with antibacterial cleaning solutions such as Lysol wipes, bleach, cleansers, etc. High-touch surfaces include tabletops, doorknobs, bathroom fixtures, toilets, phones, keyboards, tablets and bedside tables. Immediately clean any surfaces that may have blood, poop or body fluids on them, using antibacterial cleaning solutions such as Lysol wipes, bleach, cleansers, etc. If clothing or bedding come into contact with blood, poop or body fluids, they should be washed immediately. Follow the directions on the laundry detergent and clothing labels but hot water is recommended when possible. Stopping home isolation precautions: If possible, consult your doctor before stopping home isolation precautions. According to the CDC, you can discontinue home isolation precautions when you have met both of these criteria: Your fever and respiratory symptoms have been gone for 24 bettina (more content not included)... Normal [facility] DRUG SCREEN,URINEon 07-01-20 AMPHETAMINE SCREEN,U Negative Normal NEGATIVE [facility] Comment on above: Result Comment: CUTO FF LEVEL: 500 NG/ML Cross-reactivity has been reported with high concentrations of the following drugs: buproprion, chloroquine, chlorpromazine, ephedrine, mephentermine, fenfluramine, phentermine, phenylpropanolamine, pseudoephedrine, and propranolol. Performed By: #### L ACT #### [address] [id number] BARBITURATES SCREEN,U Negative Normal NEGATIVE [facility] Comment on above: Result Comment: CUTO FF LEVEL: 200 NG/ML Performed By: #### L ACT #### [address] [id number] BENZODIAZEPINES SCREEN,U Negative Normal NEGATIVE [facility] Comment on above: Result Comment: CUTO FF LEVEL: 200 NG/ML Performed By: #### L ACT #### [address] [id number] CANNABINOIDS SCREEN,U Negative Normal NEGATIVE [facility] Comment on above: Result Comment: CUTO FF LEVEL: 50 NG/ML Performed By: #### L ACT #### [address] [id number] COCAINE METABOLITE SCREEN,U Negative Normal NEGATIVE [facility] Comment on above: Result Comment: CUTO FF LEVEL: 150 NG/ML Performed By: #### L ACT #### [address] [id number] DRUG SCREEN COMMENT SEE BELOW Normal [facility] Comment on above: Result Comment: Drug screen results are presumptive and should not be used to assess compliance with prescribed medication. Contact the performing [facility] laboratory to add-on definitive confirmatory testing if clinically indicated. . Toxicology screening results are reported qualitatively. The concentration must be greater than or equal to the cutoff to be reported as positive. The concentration at which the screening test can detect an individual drug or metabolite varies. The absence of expected drug(s) and/or drug metabolite(s) may indicate non-compliance, inappropriate timing of specimen collection relative to drug administration, poor drug absorption, diluted/adulterated urine, or limitations of testing. For medical purposes only; not valid for forensic use. . Interpretive questions should be directed to the laboratory medical directors. Performed By: #### L ACT #### [address] [id number] FENTANYL SCREEN,URINE Negative Normal NEGATIVE [facility] Comment on above: Result Comment: CUTO FF LEVEL: 5 NG/ML Performed By: #### L ACT #### [address] [id number] METHADONE SCREEN,U Negative Normal NEGATIVE [facility] Comment on above: Result Comment: CUTO FF LEVEL: 150 NG/ML The metabolite K-gidgc-finkyetpbnlqlg (LAAM) is not detected by this method in concentrations that would be found in the urine of patients on LAAM therapy. Performed By: #### L ACT #### [address] [id number] OPIATES SCREEN,U Negative Normal NEGATIVE [facility] Comment on above: Result Comment: CUTO FF LEVEL: 300 NG/ML The opiate screen does not detect fentanyl, meperidine, or tramadol. Oxycodone is not consistently detected (refer to Oxycodone Screen, Urine result). Performed By: #### L ACT #### [address] [id number] OXYCODONE SCREEN,U Negative Normal NEGATIVE [facility] Comment on above: Result Comment: CUTO FF LEVEL: 100 NG/ML This test will accurately detect both oxycodone and oxymorphone. Performed By: #### L ACT #### [address] [id number] PCP SCREEN,U Negative Normal NEGATIVE [facility] Comment on above: Result Comment: CUTO FF LEVEL: 25 NG/ML Cross-reactivity has been reported with dextromethorphan. Performed By: #### L ACT #### [address] [id number] INFLUENZA A/B, COVID 2019 PC R,SYMPTOMATICon 07-01-2022 INFLUENZA A, PCR Not detected Normal Not Detected [facility] Comment on above: Result Comment: Resp iratory virus testing is performed routinely by PCR for Influenza A/B and RSV. Not Detected results do not preclude Influenza A/B or RSV infections since the adequacy of sample collection or low viral burden may impact the clinical sensitivity of this test method. Performed By: #### C OINP ####[address] [place], [place] [id number] INFLUENZA B, PCR Not detected Normal Not Detected [facility] Comment on above: Result Comment: Resp iratory virus testing is performed routinely by PCR for Influenza A/B and RSV. Not Detected results do not preclude Influenza A/B or RSV infections since the adequacy of sample collection or low viral burden may impact the clinical sensitivity of this test method. Performed By: #### C OINP ####[address] [id number] SARS-CoV-2 (COVID-19) RNA NESSA+probe Ql (Unsp spec) Not detected Normal Not Detected [facility] Comment on above: Result Comment: . This test has received FDA Emergency Use Authorization (EUA) and has been verified by [facility]. This test is only authorized for the duration of time that circumstances exist to justify the authorization of the emergency use of in vitro diagnostic tests for the detection of SARS-CoV-2 virus and/or diagnosis of COVID-19 infection under section 564(b)(1) of the Act, 21 U.S.C. 360bbb-3(b)(1), unless the authorization is terminated or revoked sooner. [facility] is certified under CLIA-88 as qualified to perform high complexity testing. Testing is performed in the [facility] laboratory located at [address] [place] [id number]. SARS-CoV-2/Flu/RSV Multiplex Test: Fact sheet for providers: https://www.fda.gov/media/669129/download Fact sheet for patients: https://www.fda.gov/media/240259/download Performed By: #### C OINP ####[facility] [place], [place] [id number] Lab Specimen Source Nasal, Nasopharyngeal Normal [facility] Comment on above: Performed By: #### C OINP ####[address] [place], [place] [id number] Provider Note - ED v3on 06-13 Provider Note - ED v3 Provider Note: Chart Review: ED NOTES ED NOTES: HPI: Patient presents to the ER for evaluation of his psychiatric symptoms. He tells me he was here in the hospital approximately 2 weeks ago and was admitted for 5 days. He was started on medications at that time. He tells me he is on Zyprexa and also states that he is on a sleep aid but does not recall what the medication is called. He tells me has a known history of bipolar affective disorder. He is having auditory hallucinations and is hearing voices. He tells me that the voices are telling me to go get help because I am feeling suicidal . He has attempted suicide in the past by stating I walked 50 miles before to try to kill myself . He denies access to firearms. He is having visual hallucinations and states I just see shadows in my periphery . He does not recognize the voices or the shadows. Denies any recreational drug use. States that he had 1 beer in the last 24 hours. Denies any chest pain or shortness of breath or nausea or vomiting or abdominal pain. Lives in a retirement. Family HX: Denies any significant/pertinent family history. Social Hx: Denies ETOH or drug use. Review of systems: All other systems have been reviewed and found to be negative Physical Exam: Appearance: Alert, oriented , cooperative, in no acute distress Skin: Intact, dry skin, no lesions, rash, petechiae or purpura. Eyes: PERRLA, EOMs intact, Conjunctiva pink with no redness or exudates. Cornea clear, Eyelids without lesions. No scleral icterus. ENT: Hearing grossly intact. External auditory canals patent, Nares patent, mucus membranes moist. Dentition without lesions. Pharynx clear, uvula midline. Neck: Supple, without meningismus. Thyroid not palpable. Trachea at midline. Pulmonary: Clear bilaterally with good chest wall excursion. No rales, rhonchi or wheezing. No accessory muscle use or stridor. Cardiac: Normal S1, S2 without murmur, rub, gallop or extrasystole. No JVD Abdomen: Soft, nontender, active bowel sounds. No palpable organomegaly. No rebound or guarding. No CVA tenderness. Genitourinary: Exam deferred. Musculoskeletal: Full range of motion. no pain, edema, or deformity. Pulses full and equal. No cyanosis, clubbing, or edema. Neurological: Cranial nerves II through XII are grossly intact, finger-nose touch is normal, normal sensation, no weakness, no focal findings identified. Psychiatric: Flat affect, poor eye contact, depressed mood, suicidal, no homicidal ideations. Positive auditory and visual hallucinations. Medical Decision-Making: Testing: Treatment: Male patient that was admitted to the hospital for psychiatric needs 1 week ago. He was started on medications. He states that he does not have follow-up with his psychiatric services and that his hallucinations are worsening and so are his suicidal ideations. His EKG interpreted by me shows a sinus rhythm with heart 97, IA 150, QRS 92 and QTc 444. Shows normal axis. No STEMI criteria noted. We will work-up the patient to medically clear him and have psychiatry reassess after to determine disposition. Reevaluation: Patient is medically cleared. He was evaluated by psychiatry who deemed him unfit for discharge. He has been pink slipped and will be transferred to [place]. Will be seen under the care of Dr. Valiente HISTORY OF PRESENTING ILLNESS EDWARD is a 52 year old Male and was seen by me at 30-Jun-2022 21:37 for a chief complaint of psychiatric evaluation (patient seen about two weeks ago here, meds adusted. Meds not working haven't slept for 5 days, hearing things and seeing things. I just want everything to end. Sometimes I wish I was . Shadows everywhere and I want the voices to go away) . Triage Information: Most recent Vital Sign Value Date Temp (F): 98.4 06-30-2022 21:12 Temp (C): 36.9 06-30-2022 21:12 Heart Rate (beats/min): 99 06-30-2022 21:12 Respirations (breaths/min): 20 06-30-2022 21:12 SpO2 (%): 99 06-30-2022 21:12 BP Systolic (mm Hg): 159 06-30-2022 21:12 BP Diastolic (mm Hg): 113 06-30-2022 21:12 PAST MEDICAL HISTORY ALLERGIES/INTOLERANCES: No Known Allergies HEALTH HISTORY: No documented data. OUTPATIENT MEDICATIONS: Home Medications Review Status for Reconciliation: N/A Med Status: Patient Currently Takes Medications Drug Name: doxepin 25 mg oral capsule Instructions: 1 cap(s) orally once (at bedtime) Drug Name: OLANZapine 10 mg oral tablet Instructions: 1 tab(s) orally once (at bedtime) Drug Name: OLANZapine 2.5 mg oral tablet Instructions: 1 tab(s) orally 2 times a day - (Every 1 day at 08:00, 12:00 ) Drug Name: pantoprazole 40 mg oral delayed release tablet Instructions: 1 tab(s) orally once a day GERD Drug Name: nicotine 14 mg/24 hr transdermal film, extended release Instructions: 1 patch transdermal every 24 hours smoking cessation Drug N (more content not included)... Normal [facility] URINALYSISon 07-01-2022 Appearance (U) CLEAR Normal CLEAR [facility] Comment on above: Performed By: #### L ACT #### [address] [id number] Bilirubin Ql (U) Negative Normal NEGATIVE [facility] Comment on above: Performed By: #### L ACT #### [address] [id number] Color (U) STRAW Normal STRAW,YELLOW [facility] Comment on above: Performed By: #### L ACT #### [address] [id number] Glucose Ql (U) Negative Normal NEGATIVE [facility] Comment on above: Performed By: #### L ACT #### [address] [id number] Hemoglobin Ql (U) Negative Normal NEGATIVE [facility] Comment on above: Performed By: #### L ACT #### [address] [id number] Ketones Ql (U) Negative Normal NEGATIVE [facility] Comment on above: Performed By: #### L ACT #### [address] [id number] Leukocyte esterase Test stri p Ql (U) Negative Normal NEGATIVE [facility] Comment on above: Performed By: #### L ACT #### [address] [id number] Nitrite Ql (U) Negative Normal NEGATIVE [facility] Comment on above: Performed By: #### L ACT #### [address] [id number] pH (U) 6.0 [pH] Normal 5.0 - 8.0 [facility] Comment on above: Performed By: #### L ACT #### [address] [id number] Protein Ql (U) Negative Normal NEGATIVE [facility] Comment on above: Performed By: #### L ACT #### [address] [id number] Specific gravity (U) [Rel density] 1.005 Normal 1.005 - 1.035 [facility] Comment on above: Performed By: #### L ACT #### [address] [id number] Urobilinogen (U) [Mass/Vol] mg/dL Normal 0.0 - 1. 9 [facility] Comment on above: Performed By: #### L ACT #### [address] [id number] Triage - EDon 06-30-2022 Triage - ED Quick Triage: The patient and/or guardian verbally acknowledges placement for services into the following (when Urgent Care Service hours are operating):emergency department Chart Review: PRIMARY ASSESSMENT EDWARD CROWDER'kuldeep primary assessment is Within Defined Limits. The airway is open and patent. Breathing spontaneous and unlabored with clear breath sounds bilaterally. Circulation is normal with good peripheral pulses. Skin is warm and dry and color is normal for race. ARRIVAL INFORMATION Mode of Arrival: private vehicle CHIEF COMPLAINT EDWARD CROWDER is a Male patient with a chief complaint of psychiatric evaluation (patient seen about two weeks ago here, meds adusted. Meds not working haven't slept for 5 days, hearing things and seeing things. I just want everything to end. Sometimes I wish I was . Shadows everywhere and I want the voices to go away). Onset of the Complaint: 25-Jun-2022 Triage Date/Time: 30-Jun-2022 21:12 FRED: 2 Pain Rating (0-10): 0 = None Vital Signs: Temperature: 98.4F ( 36.9C) taken temporal Blood Pressure: 159/113 Mean: Heart Rate: 99 Respiratory Rate: 20 Pulse Oximetry: 99% on room air, no respiratory support. Height: 5 feet 7.00 inches. 170.1 CM Weight: 175.2 pounds. Calculated 79.5 kg. (stated) Calculated BMI (kg/m2): 27.476 Calculated BSA (m2) 1.94 Cough lasting greater than 3 weeks: no Allergies: no Patient has homicidal thoughts: no Risk Screens Suicide Risk Screen In the Past Month: Have you wished you were or wished you could go to sleep and not wake up yes In the Past Month: Have you had any actual thoughts of killing yourself yes In the Past Month: Have you been thinking about how you might do this no In the Past Month: Have you had these thoughts and had some intention of acting on them no In the Past Month: Have you started to work out or worked out the details of how to kill yourself Do you intend to carry out this plan no In Your Lifetime: Have you ever done anything, started to do anything, or prepared to do anything to end your life no Suicide Risk Interventions Low Suicide Risk Interventions: consider behavioral health resources will be given at dischargeicon low Rondon Fall Scale Screening Has the patient fallen before (or is the patient in the ED as a result of a fall) has not had a fall Does the patient have an impaired gait does not have impaired gait Is the patient cognitively impaired not cognitively impaired Interventions: Rondon Fall Interventions: LOW INTERVENTIONS: *patient oriented to surroundings and call system, * patient/family falls education completed and documented, *patients fall status communicated during bedside handoff, *whiteboard updated, *mode of toileting discussed with patient, *bed in low position with brakes locked, *call light in reach, * non-skid footwear TRAVEL HISTORY Travel History Coronavirus Screening: no exposure or symptoms Travel Exposure History: NO travel to International locations in the past 30 days PAIN Pain Scale Used: ART Pain Rating (0-10): 0 = None Past Medical History: Past Medical History Reviewedyes Anxiety: Past Medical History, Active Electronic Signatures: Katheryn Rodriguez (N MGR) (Signed 30-Jun-2022 21:18) Authored: Quick Triage, Risk Screens, Pain, ABCD, Travel History, Chart Review, Past Medical History Last Updated: 30-Jun-2022 21:18 by Katheryn Rodriguez (N R) [facility] Order Reconciliationon 06-22 Order Reconciliation Page 1 Discharge Reconciliation Document Reconciliation Type: Discharge requested on behalf of Damari Hitchcock (Advanced Practice Nurse) done by Damari Hitchcock ([facility]) Discharge - Reconciliation: 22-Jun-2022 10:47 by: Jin Liang) Discharge - Reset to Incomplete: 22-Jun-2022 11:07 by: Damari Hitchcock (OUTSIDE SALES ACCOUNT EXECUTIVE-[facility]) Discharge - Reconciliation: 22-Jun-2022 11:08 by: Damari Hitchcock (OUTSIDE SALES ACCOUNT EXECUTIVE-[facility]) Home Medications EnteredHOME MEDICATIONS AT DISCHARGE DateReconciliation Comment/ Additional Information folic acid 1 mg oral tablet 1 tab(s) orally once a day supplement 11-Feb-2022 15:38 folic acid 1 mg oral tablet 1 tab(s) orally once a day supplement 22-Jun-2022 11:08 Discontinued; Copy/Discontinue folic acid 1 mg oral tablet is continued and modified hydrOXYzine hydrochloride 50 mg oral tablet 1 tab(s) orally every 6 hours, As needed, anxiety 11-Feb-2022 15:36 Discontinued; Discontinue from ORM hydrOXYzine hydrochloride 50 mg oral tablet is not required Multiple Vitamins with Minerals oral tablet 1 tab(s) orally once a day supplement 11-Feb-2022 15:38 Multiple Vitamins with Minerals oral tablet 1 tab(s) orally once a day supplement 22-Jun-2022 11:08 Discontinued; Copy/Discontinue Multiple Vitamins with Minerals oral tablet is continued and modified nicotine 14 mg/24 hr transdermal film, extended release 1 patch transdermal every 24 hours smoking cessation 11-Feb-2022 15:37 nicotine 14 mg/24 hr transdermal film, extended release 1 patch transdermal every 24 hours smoking cessation 22-Jun-2022 11:07 Discontinued; Copy/Discontinue nicotine 14 mg/24 hr transdermal film, extended release is continued and modified OLANZapine 20 mg oral tablet 1 tab(s) orally once (at bedtime)mood/thoughts 11-Feb-2022 15:36 Discontinued; Discontinue from ORM OLANZapine 20 mg oral tablet is not required pantoprazole 40 mg oral delayed release tablet 1 tab(s) orally once a day GERD 11-Feb-2022 15:37 pantoprazole 40 mg oral delayed release tablet 1 tab(s) orally once a day GERD 22-Jun-2022 11:07 Discontinued; Copy/Discontinue pantoprazole 40 mg oral delayed release tablet is continued and modified thiamine 100 mg oral tablet 1 tab(s) orally once a day supplement 11-Feb-2022 15:38 thiamine 100 mg oral tablet 1 tab(s) orally once a day supplement 22-Jun-2022 11:08 Discontinued; Copy/Discontinue thiamine 100 mg oral tablet is continued and modified Current OrdersDateHOME MEDICATIONS AT DISCHARGE DateReconciliation Comment/ Additional Information Acetaminophen Tablet (TYLENOL)DOSE = 650 mg Oral Every 4 Hours, PRN Pain - Mild (1-3) or Temp Greater Than or Equal to 38.0 C 17-Jun-2022 02:54 Acetaminophen is not required diphenhydrAMINE Capsule (BENADRYL)DOSE = 50 mg Oral Every 6 Hours, PRN EPS/EPS prophylaxis 17-Jun-2022 02:54 diphenhydrAMINE is not required diphenhydrAMINE Injectable (BENADRYL)DOSE = 50 mg IntraMuscular Every 6 Hours, PRN EPS/EPS prophylaxis if unable to take oral. 17-Jun-2022 02:54 diphenhydrAMINE Injectable is not required Doxepin Capsule (SINEQUAN)DOSE = 25 mg Oral At Bedtime 21-Jun-2022 09:49 doxepin 25 mg oral capsule 1 cap(s) orally once (at bedtime) 22-Jun-2022 10:45 Prescription is created for doxepin 25 mg oral capsule Folic Acid TabletDOSE = 1 mg Oral Daily 17-Jun-2022 03:10 Folic Acid is not required Haloperidol Lactate Tablet (HALDOL)DOSE = 5 mg Oral Every 6 Hours, PRN Moderate agitation or psychosis 17-Jun-2022 02:54 Haloperidol Lactate is not required Haloperidol Lactate Injectable (HALDOL)DOSE = 5 mg IntraMuscular Every 6 Hours, PRN Moderate agitation/psychosis-Unable to take oral 17-Jun-2022 02:54 Haloperidol Lactate Injectable is not required hydrOXYzine Hydrochloride (ATARAX) TabletDOSE = 50 mg Oral Every 6 Hours, PRN Anxiety 17-Jun-2022 02:54 hydrOXYzine Hydrochloride (ATARAX) is not required Ibuprofen Tablet (ADVIL, MOTRIN)DOSE = 400 mg Oral Every 6 Hours, PRN Pain - Mild (1-3) 17-Jun-2022 02:54 Ibuprofen is not required Magnesium Hydroxide -Al Hydrox -Simethicone Oral Liquid (MAALOX)DOSE = 30 mL Oral Every 6 Hours, PRN Dyspepsia 17-Jun-2022 02:54 Magnesium Hydroxide -Al Hydrox -Simethicone Oral Liquid is not required Multivitamin with Minerals TabletDOSE = 1 tablet(s) Oral Daily 17-Jun-2022 03:10 Multivitamin with Minerals is not required Nicotine 21 mg/ 24 hour TransDermal Film, Extended Release (NICODERM)DOSE = 1 patch TransDermal Every 24 HoursNotes from Pharmacy: [facility] 17-Jun-2022 08:24 Nicotine 21 mg/ 24 hour TransDermal is not required OLANZapine Tablet (ZYPREXA)DOSE = 10 mg Oral At Bedtime 18-Jun-2022 19:58 OLANZapine 10 mg oral tablet 1 tab(s) orally once (at bedtime) 22-Jun-2022 10:46 Prescription is created for OLANZapine 10 mg oral tablet OLANZapine Tablet (ZYPREXA)DOSE = 2.5 mg Oral ( every 1 day: 08:00, 12:00 ) 20-Jun-2022 13:50 OLANZapine 2.5 mg oral tablet 1 tab(s) orally 2 times a day - (Every 1 day at 08:00 (more content not included)... Normal [facility] Daily Progress Note - Psychi atryon 06-21-2022 Daily Progress Note - Psychiatry Subjective Data: EDWARD CROWDER is a 52 year old Male who is Hospital Day # 6. Additional Information: Edward continues to be restless at night and that is when suicidal thoughts passive wishes does not go through his mind. He had a restless night last night. Trazodone caused vivid dreams which was highly unsettling for him. Side effects for doxepin discussed risk of possibility of vivid dreams discussed about this although he is willing to try. Patient is tolerating the pena milieu well. Patient is attending all the groups and meetings and finds them useful in developing more understanding of their symptoms and developing coping skills. Patient is tolerating medications well. Labs Reviewed. Vitals Reviewed. Nursing Notes Reviewed. No EPS, TD, vitals stable. MSE: Patient was alert, oriented to time, place, person and situation. Patient appears well groomed and clad in climate appropriate clothes. Patient is resigned and guarded on approach. Recent and remote memory within normal limits. Memory registration and recall within normal limits. Attention and concentration within normal limits. Speech normal in rate, rhythm and volume. Good eye contact. Though process Linear. Intact associations. Good fund of knowledge. Mood sad and affect constricted. Patient did not endorse any delusions. Patient is still experiencing intermittent auditory hallucinations. Patient has active suicidal ideations and is not future oriented. Patient has fair insight, fair judgment and good impulse control. Musculoskeletal: Normal gait, no Parkinsonism, no Dystonia, no Akathisia, no TD. Psychomotor activity within normal limits. Diagnosis: Bipolar 1 depressed Assessment and Plan: Continue olanzapine 2.5 mg morning and noon and 10 mg bedtime and start doxepin 25 mg at bedtime. Need for Inpatient Care: Medication titration, monitoring for side effects mood and impulsivity. Plan for inpatient psychiatric care: Continue with psychiatric care in [facility]. Continue with current treatment and medication adjustments. Patient is agreeable with continued medication management and adjustments discussed. Assessment and Plan: Risk Assessment: [place] Suicide Risk: negative (1) DASA Risk for Violence: (0-1) Low Risk for violence in next 24 hours(1) Electronic Signatures: Jin Liang) (Signed 21-Jun-2022 09:51) Authored: Subjective Data, Assessment and Plan, Note Completion Last Updated: 21-Jun-2022 09:51 by Jin Liang) References: 1. Data Referenced From 4. A + I - Behavioral 20-Jun-2022 21:00 Normal [facility] Daily Progress Note - Psychi atryon 06-20-2022 Daily Progress Note - Psychiatry Subjective Data: EDWARD CROWDER is a 52 year old Male who is Hospital Day # 5. Patient reports he had difficulty sleeping last night and woke up often throughout the night. Patient still reports high levels of anxiety. Objective: Objective Information: T PRBPMAPSpO2 [id number]% Date/Time06/20 7: 7: 7: 7: 7: 7:51 Range(36.2C - 37.1C ) (82 - 103 ) (18 - 18 ) (107 - 132 )/ (71 - 83 ) (94 - 94 ) (97% - 99% ) Highest temp of 37.1 C was recorded at 12 21:40 Mental Status Exam: General: Appropriately groomed and dressed. Appearance: Appears stated age. Attitude: Calm, cooperative. Behavior: Appropriate eye contact. Motor Activity: No agitation or retardation. No EPS/TD. Normal gait. Speech: Regular rate, rhythm, volume and tone, spontaneous, fluent. Mood: Depressed, anxious Affect: Flat Thought Process: Organized, linear, goal directed. Associations are logical. Thought Content: Does not endorse suicidal or homicidal ideation, no delusions elicited. Thought Perception: Does not endorse auditory or visual hallucinations, does not appear to be responding to hallucinatory stimuli. Cognition: Alert, oriented x3. Insight: Fair Judgment: Fair Medications: Continuous Medications No continuous medications are active Scheduled Medications 1. Folic Acid: 1 mg Oral Daily 2. Multivitamin with Minerals: 1 tablet(s) Oral Daily 3. Nicotine 21 mg/ 24 hour TransDermal: 1 patch TransDermal Every 24 Hours 4. OLANZapine: 10 mg Oral At Bedtime 5. OLANZapine: 2.5 mg Oral 6. Pantoprazole: 40 mg Oral Daily 7. Thiamine: 100 mg Oral Daily PRN Medications 1. Acetaminophen: 650 mg Oral Every 4 Hours 2. diphenhydrAMINE: 50 mg Oral Every 6 Hours 3. diphenhydrAMINE Injectable: 50 mg IntraMuscular Every 6 Hours 4. Haloperidol Lactate: 5 mg Oral Every 6 Hours 5. Haloperidol Lactate Injectable: 5 mg IntraMuscular Every 6 Hours 6. hydrOXYzine Hydrochloride (ATARAX): 50 mg Oral Every 6 Hours 7. Ibuprofen: 400 mg Oral Every 6 Hours 8. Magnesium Hydroxide -Al Hydrox -Simethicone Oral Liquid: 30 mL Oral Every 6 Hours Recent Lab Results: Results: I have reviewed these laboratory results in [facility]: Lipid Panel 17-Jun-2022 07:33:00 ResultValue Cholesterol, Serum 119 . AGE DESIRABLE BORDERLINE HIGH HIGH 0-19 Y 0 - 169 170 - 199 >/= 200 20-24 Y 0 - 189 190 - 224 >/= 225 >24 Y 0 - 199 200 - 239 >/= 240 All ranges are based on fasting [facility] HDL Cholesterol, Serum 52.7 . AGE VERY LOW LOW NORMAL HIGH 0-19 Y < 35 < 40 40-45 ---- 20-24 Y ---- < 40 >45 ---- >24 Y ---- < 40 40-60 >60. Cholesterol/HDL Ratio 2.3 REF VALUESDESIRABLE < 3.4HIGH RISK > 5.0 LDL, Level 49 . NEAR BORD AGE DESIRABLE OPTIMAL HIGH HIGH VERY HIGH 0-19 Y 0 - 109 --- 110-129 >/= 130 ---- 20-24 Y 0 - 119 --- 120-159 >/= 160 ---- >24 Y 0 - VLDL, Serum 18 Triglycerides, Serum 88 . AGE DESIRABLE BORDERLINE HIGH HIGH VERY HIGH 0 D-90 D 19 - 174 ---- ---- ----91 D- 9 Y 0 - 74 75 - 99 >/= 100 ---- 10-19 Y 0 - 89 90 - 129 >/= 130 ---- Glucose, Fasting 17-Jun-2022 07:33:00 ResultValue Glucose, Fasting 69 L Complete Blood Count + Differential 16-Jun-2022 21:56:00 ResultValue White Blood Cell Count 7.1 Red Blood Cell Count 5.37 HGB 16.3 HCT 47.3 MCV 88 MCHC 34.5 PLT 307 RDW-CV 12.3 Neutrophil % 61.0 Immature Granulocytes % 0.3 Lymphocyte % 27.6 Monocyte % 10.1 Eosinophil % 0.7 Basophil % 0.3 Neutrophil Count 4.36 Lymphocyte Count 1.97 Monocyte Count 0.72 Eosinophil Count 0.05 Basophil Count 0.02 Comprehensive Metabolic Panel 16-Jun-2022 21:56:00 ResultValue Glucose, Serum 102 H NA 137 K 3.6 CL 103 Bicarbonate, Serum 21 Anion Gap, Serum 17 BUN 15 CREAT 1.12 GFR Male 80 Calcium, Serum 9.2 ALB 4.6 ALKP 108 T Pro 7.6 T Bili 0.4 Alanine Aminotransferase, Serum 38 Aspartate Transaminase, Serum 66 H . Assessment and Plan: Risk Assessment: Payette Suicide Risk: negative (1) Acute Risk of Harm to Self is Considered: moderate DASA Risk for Violence: (0-1) Low Risk for violence in next 24 hours(1) Acute Risk of Harm to Others is Considered: low Assessment: Patient is a 52-year-old male with diagnosis of bipolar disorder and polysubstance abuse. Patient reports poor sleep. Patient states that he awoke often throughout the night. Patient continues to report high levels of anxiety today. Educated patient that his anxiety is most likely associated with alcohol withdrawal. Patient in the action stage of change in regard to substance use. Patient states that he has spoken with [facility] living and they are willing to have the patient return to facility on Thursday. Advised patient we will add Zyprexa 2.5 mg oral daily in the morning and at noon to help wit (more content not included)... Normal [facility] Daily Progress Note - Psychi woo 06-19-2022 Daily Progress Note - Psychiatry Subjective Data: EDWARD CROWDER is a 52 year old Male who is Hospital Day # 4. Patient reports improved sleep. Patient also states that his anxiety has decreased significantly. Objective: Objective Information: T PRBPMAPSpO2 [id number]% Date/Time06/19 10: 10: 10: 10: 7: 10:03 Range(36.2C - 37.1C ) (81 - 103 ) (16 - 20 ) (116 - 141 )/ (68 - 83 ) (94 - 94 ) (97% - 99% ) Highest temp of 37.1 C was recorded at 06/18 18:05 Mental Status Exam: General: Appropriately groomed and dressed. Appearance: Appears stated age. Attitude: Calm, cooperative. Behavior: Appropriate eye contact. Motor Activity: No agitation or retardation. No EPS/TD. Normal gait. Speech: Regular rate, rhythm, volume and tone, spontaneous, fluent. Mood: Depressed Affect: Flat Thought Process: Organized, linear, goal directed. Associations are logical. Thought Content: Does not endorse suicidal or homicidal ideation, no delusions elicited. Thought Perception: Does not endorse auditory or visual hallucinations, does not appear to be responding to hallucinatory stimuli. Cognition: Alert, oriented x3. Insight: Fair Judgment: Fair Medications: Continuous Medications No continuous medications are active Scheduled Medications 1. Folic Acid: 1 mg Oral Daily 2. Multivitamin with Minerals: 1 tablet(s) Oral Daily 3. Nicotine 21 mg/ 24 hour TransDermal: 1 patch TransDermal Every 24 Hours 4. OLANZapine: 10 mg Oral At Bedtime 5. Pantoprazole: 40 mg Oral Daily 6. Thiamine: 100 mg Oral Daily PRN Medications 1. Acetaminophen: 650 mg Oral Every 4 Hours 2. diazePAM (VALIUM): 5 mg Oral Every 2 Hours 3. diphenhydrAMINE: 50 mg Oral Every 6 Hours 4. diphenhydrAMINE Injectable: 50 mg IntraMuscular Every 6 Hours 5. Haloperidol Lactate: 5 mg Oral Every 6 Hours 6. Haloperidol Lactate Injectable: 5 mg IntraMuscular Every 6 Hours 7. hydrOXYzine Hydrochloride (ATARAX): 50 mg Oral Every 6 Hours 8. Ibuprofen: 400 mg Oral Every 6 Hours 9. Magnesium Hydroxide -Al Hydrox -Simethicone Oral Liquid: 30 mL Oral Every 6 Hours Recent Lab Results: Results: I have reviewed these laboratory results in [facility]: Lipid Panel 17-Jun-2022 07:33:00 ResultValue Cholesterol, Serum 119 . AGE DESIRABLE BORDERLINE HIGH HIGH 0-19 Y 0 - 169 170 - 199 >/= 200 20-24 Y 0 - 189 190 - 224 >/= 225 >24 Y 0 - 199 200 - 239 >/= 240 All ranges are based on fasting [facility] HDL Cholesterol, Serum 52.7 . AGE VERY LOW LOW NORMAL HIGH 0-19 Y < 35 < 40 40-45 ---- 20-24 Y ---- < 40 >45 ---- >24 Y ---- < 40 40-60 >60. Cholesterol/HDL Ratio 2.3 REF VALUESDESIRABLE < 3.4HIGH RISK > 5.0 LDL, Level 49 . NEAR BORD AGE DESIRABLE OPTIMAL HIGH HIGH VERY HIGH 0-19 Y 0 - 109 --- 110-129 >/= 130 ---- 20-24 Y 0 - 119 --- 120-159 >/= 160 ---- >24 Y 0 - VLDL, Serum 18 Triglycerides, Serum 88 . AGE DESIRABLE BORDERLINE HIGH HIGH VERY HIGH 0 D-90 D 19 - 174 ---- ---- ----91 D- 9 Y 0 - 74 75 - 99 >/= 100 ---- 10-19 Y 0 - 89 90 - 129 >/= 130 ---- Glucose, Fasting 17-Jun-2022 07:33:00 ResultValue Glucose, Fasting 69 L Complete Blood Count + Differential 16-Jun-2022 21:56:00 ResultValue White Blood Cell Count 7.1 Red Blood Cell Count 5.37 HGB 16.3 HCT 47.3 MCV 88 MCHC 34.5 PLT 307 RDW-CV 12.3 Neutrophil % 61.0 Immature Granulocytes % 0.3 Lymphocyte % 27.6 Monocyte % 10.1 Eosinophil % 0.7 Basophil % 0.3 Neutrophil Count 4.36 Lymphocyte Count 1.97 Monocyte Count 0.72 Eosinophil Count 0.05 Basophil Count 0.02 Comprehensive Metabolic Panel 16-Jun-2022 21:56:00 ResultValue Glucose, Serum 102 H NA 137 K 3.6 CL 103 Bicarbonate, Serum 21 Anion Gap, Serum 17 BUN 15 CREAT 1.12 GFR Male 80 Calcium, Serum 9.2 ALB 4.6 ALKP 108 T Pro 7.6 T Bili 0.4 Alanine Aminotransferase, Serum 38 Aspartate Transaminase, Serum 66 H . Assessment and Plan: Additional Dx: Bipolar disorder: Risk Assessment: Payette Suicide Risk: low (1) Acute Risk of Harm to Self is Considered: moderate DASA Risk for Violence: (0-1) Low Risk for violence in next 24 hours(2) Acute Risk of Harm to Others is Considered: low Assessment: Patient is a 52-year-old male with diagnosis of bipolar disorder and polysubstance abuse. Patient reports that he slept well. Patient does report some daytime fatigue, but states that his anxiety has decreased significantly. Patient no longer showing signs of alcohol withdrawal. Patient reports that he is tolerating Zyprexa well at this time. Patient states that he would like to get back into residential [facility] treatment once discharged from the hospital. Patient states that he is going to call [facility] to see if they will allow him back in the program once he leaves the hospital. PLAN -Re (more content not included)... Normal [facility] Daily Progress Note - Psychi atryon 06-18-2022 Daily Progress Note - Psychiatry Subjective Data: EDWARD CROWDER is a 52 year old Male who is Hospital Day # 3. Patient reports that he slept well but he continues to report high levels of anxiety. Objective: Objective Information: T PRBPMAPSpO2 [id number]% Date/Time06/18 14: 14: 14: 14: 14:00 Range(36.3C - 37.3C ) (69 - 109 ) (16 - 20 ) (84 - 148 )/ (49 - 94 ) (97% - 99% ) Highest temp of 37.3 C was recorded at 06/17 14:00 Mental Status Exam: General: Appropriately groomed and dressed. Appearance: Appears stated age. Attitude: Calm, cooperative. Behavior: Appropriate eye contact. Motor Activity: No agitation or retardation. No EPS/TD. Normal gait. Speech: Regular rate, rhythm, volume and tone, spontaneous, fluent. Mood: Depressed, anxious Affect: Flat Thought Process: Organized, linear, goal directed. Associations are logical. Thought Content: Does not endorse suicidal or homicidal ideation, no delusions elicited. Thought Perception: Endorses auditory hallucinations Cognition: Alert, oriented x3. Insight: Fair Judgment: Poor Medications: Continuous Medications No continuous medications are active Scheduled Medications 1. Folic Acid: 1 mg Oral Daily 2. Multivitamin with Minerals: 1 tablet(s) Oral Daily 3. Nicotine 21 mg/ 24 hour TransDermal: 1 patch TransDermal Every 24 Hours 4. Pantoprazole: 40 mg Oral Daily 5. Thiamine: 100 mg Oral Daily PRN Medications 1. Acetaminophen: 650 mg Oral Every 4 Hours 2. diazePAM (VALIUM): 5 mg Oral Every 2 Hours 3. diphenhydrAMINE: 50 mg Oral Every 6 Hours 4. diphenhydrAMINE Injectable: 50 mg IntraMuscular Every 6 Hours 5. Haloperidol Lactate: 5 mg Oral Every 6 Hours 6. Haloperidol Lactate Injectable: 5 mg IntraMuscular Every 6 Hours 7. hydrOXYzine Hydrochloride (ATARAX): 50 mg Oral Every 6 Hours 8. Ibuprofen: 400 mg Oral Every 6 Hours 9. Magnesium Hydroxide -Al Hydrox -Simethicone Oral Liquid: 30 mL Oral Every 6 Hours Recent Lab Results: Results: I have reviewed these laboratory results in [facility]: Lipid Panel 17-Jun-2022 07:33:00 ResultValue Cholesterol, Serum 119 . AGE DESIRABLE BORDERLINE HIGH HIGH 0-19 Y 0 - 169 170 - 199 >/= 200 20-24 Y 0 - 189 190 - 224 >/= 225 >24 Y 0 - 199 200 - 239 >/= 240 All ranges are based on fasting [facility] HDL Cholesterol, Serum 52.7 . AGE VERY LOW LOW NORMAL HIGH 0-19 Y < 35 < 40 40-45 ---- 20-24 Y ---- < 40 >45 ---- >24 Y ---- < 40 40-60 >60. Cholesterol/HDL Ratio 2.3 REF VALUESDESIRABLE < 3.4HIGH RISK > 5.0 LDL, Level 49 . NEAR BORD AGE DESIRABLE OPTIMAL HIGH HIGH VERY HIGH 0-19 Y 0 - 109 --- 110-129 >/= 130 ---- 20-24 Y 0 - 119 --- 120-159 >/= 160 ---- >24 Y 0 - VLDL, Serum 18 Triglycerides, Serum 88 . AGE DESIRABLE BORDERLINE HIGH HIGH VERY HIGH 0 D-90 D 19 - 174 ---- ---- ----91 D- 9 Y 0 - 74 75 - 99 >/= 100 ---- 10-19 Y 0 - 89 90 - 129 >/= 130 ---- Glucose, Fasting 17-Jun-2022 07:33:00 ResultValue Glucose, Fasting 69 L Complete Blood Count + Differential 16-Jun-2022 21:56:00 ResultValue White Blood Cell Count 7.1 Red Blood Cell Count 5.37 HGB 16.3 HCT 47.3 MCV 88 MCHC 34.5 PLT 307 RDW-CV 12.3 Neutrophil % 61.0 Immature Granulocytes % 0.3 Lymphocyte % 27.6 Monocyte % 10.1 Eosinophil % 0.7 Basophil % 0.3 Neutrophil Count 4.36 Lymphocyte Count 1.97 Monocyte Count 0.72 Eosinophil Count 0.05 Basophil Count 0.02 Comprehensive Metabolic Panel 16-Jun-2022 21:56:00 ResultValue Glucose, Serum 102 H NA 137 K 3.6 CL 103 Bicarbonate, Serum 21 Anion Gap, Serum 17 BUN 15 CREAT 1.12 GFR Male 80 Calcium, Serum 9.2 ALB 4.6 ALKP 108 T Pro 7.6 T Bili 0.4 Alanine Aminotransferase, Serum 38 Aspartate Transaminase, Serum 66 H . Assessment and Plan: Risk Assessment: Payette Suicide Risk: low (1) Acute Risk of Harm to Self is Considered: moderate (2) DASA Risk for Violence: (0-1) Low Risk for violence in next 24 hours(1) Acute Risk of Harm to Others is Considered: low (2) Assessment: Patient is a 52-year-old male with diagnosis of bipolar disorder and polysubstance abuse. Patient reports that he slept well but he reports high levels of anxiety this morning. Patient still exhibiting some signs of mild alcohol withdrawal including cold sweats and mild headache. Patient reports that he is tolerating Zyprexa well with no adverse effects. Patient reports that he is working to get back on track in regard to his recovery from substances. Patient has been active on the unit and participating in group therapy. PLAN - Admit for safety, stabilization, treatment -Restrict to Pena: Suicide/Behavioral/Elopement/Assault/Fall Precautions -Encourage group participation in milieu therapy -Medications: -Zyprexa 10 mg oral daily HS -Obtain A1c and lipid gorman (more content not included)... Normal [facility] ACUTE TOXICOLOGY PANEL, BLOO Don 06-17-2022 Acetaminophen [Mass/Vol] ug/mL Normal 10.0 - 30.0 [facility] Comment on above: Performed By: #### D RUBL ####[address] [place], [place] [id number] Ethanol [Mass/Vol] mg/dL Normal [facility] Comment on above: Result Comment: FOR MEDICAL USE ONLY. . REF VALUES <10 Performed By: #### D RUBL ####[facility] [place], [place] [phone] SALICYLATE <3 Normal 4 - 20 [facility] Comment on above: Performed By: #### D RUBL ####[facility] [place], [place] [phone] Admission Risk Screen - Adul ton 06-17-2022 Admission Risk Screen - Adult Allergies: Allergies: No Known Allergies: Patient Verification: New W ID Band Applied in my Departmentyes Patient Identity Verified Bypatient ID Band FULL Name, include Middle, spelling matches patient's ID used for verificationyes ID Band Matches Patient ID used for Verficationyes ID Band MRN Matches EMR MRNyes Visitor Restriction: Coronavirus Visitor Restriction: Reasonable restrictions to in-person visitors will be observed due to current coronavirus pandemic. Travel History: COVID-19 Screening Completedno exposure or symptoms(1) Travel or Exposure Past 30 DaysNO travel to International locations in the past 30 days Ebola AlertFor Ebola-like Symptoms: Isolate Patient and Notify Provider/Photoengraving Etcher For Contact: Notify Provider/Photoengraving Etcher [place]ondon Fall Screen: History of falling (immediate or previous)no (0) Secondary Diagnosisno (0) Intravenous Therapy/ Heparin/Saline Lockno (0) Gait/Transferringnormal/bedrest/wheelchair (0) Ambulatory Aidsnone/bedrest/nurse assist (0) Mental Statusoriented to own ability (0) Score: Low risk (<25). Moderate risk (25-44). High risk (>44).0 [place]ondon InterventionsLOW INTERVENTIONS: *patient oriented to surroundings and call system, * patient/family falls education completed and documented, *patients fall status communicated during bedside handoff, *whiteboard updated, *mode of toileting discussed with patient, *bed in low position with brakes locked, *call light in reach, * non-skid footwear Functional Screen: Functional Screen: In the recent/past 2-4 weeks, patient or family have noticedno issues that require a speech/language consult at this time AM-PAC- Basic Mobility/Daily Activity: Patient baseline bedboundno Learning Assessment (Patient): Patient is Able to be Assessed for Learningyes Factors Influencing Readiness to Learnacuteness of illness Factors that Impact Ability to Learnacuteness of illness Devices/Methods Used to Communicatenone Learning Preferencesverbal instruction Cultural Considerationsnone Developmental Considerationsnone Sabianist Considerationsnone Learning Assessment (Other Learner): Other learner availableno Adult Nutrition Screen: Have you recently lost weight without tryingno Have you been eating poorly because of a decreased appetiteno Malnutrition Screening Tool Score0 Malnutrition Screening Tool RiskMST = 0 or 1 Not at risk. Eating well with little or no weight loss Nutrition Consult needed this visitno Can Patient Participate in Room Serviceno Patient requires Paper Dishes/Plastic Utensilsno Pain Screen: Pain Scalenumerical 0-10 Pain Scale Educationteaching provided Current Pain Level0 = None Acceptable Pain Level0 = None Expression of Pain (nonverbal)none Chronic Painno Spiritual Screen: Are there any cultural, spiritual, amish practices/values/needs that are important for us to knowno Vaccinations: Vaccination - Influenza Vaccination Screen: Is it flu season (between and October 10)Yes Screening for identified contraindications to influenza vaccination patient/caregiver refusal Vaccination - Pneumonia Vaccination Screen: Patient has received a previous pneumonia vaccine:no/unknown... Immunocompetent persons with underlying chronic conditions or reside in equipment operator intermodal yard care facilitiesalcoholism, chronic liver disease, including cirrhosis Persons with Functional or Anatomic Asplenianone of these conditions Immunocompromised Personsnone of these conditions Pneumonia vaccine NOT indicated due to:patient/caregiver refusal at this time Taran: Skin - Taran Scale: Atran: Sensory Perception (response to environment)(4) no impairment Taran: Moisture (degree skin exposed to moisture)(4) rarely moist Taran: Activity (ability to walk)(4) walks frequently Taran: Mobility (amount/control of body movement)(4) no limitation Taran: Nutrition (quality of food intake)(4) excellent Taran: Friction and Shear(3) no apparent problem Taran: Score23 Significant Indicatiors: Significant Indicators: Complete Pressure Injury: Pressure Injury Present on Admissionno Advance Directives: Advance Directive (Medical)no Advance Directive Information Givenpatient/family declined Reason No Advance Directive (Medical)did not wish to discuss adv directive/surrogate Advance Directive (Mental Health)no Advance Directive Information Given (Mental Health)patient/family declined Reason No Advance Directive (Mental Health)did not wish to discuss adv directive/surrogate Strengths (document at least 2 ): Describe Your Strengths: hard worker Describe Your Strengths 2: insured Safety Wanding: [place] Wanding Resultsnegative Payette Suicide: STEP 1 Risk Screen Not Applicable/Able to Answerable to be screened (2) In the Past Month: Have you wished you were or could go (more content not included)... Normal [facility] CBC AND DIFFERENTIALon 06-17 % AUTOMATED IMMATURE GRAN 0.3 % Normal 0.0 - 0.9 [facility] Comment on above: Result Comment: Beatriz ture Granulocyte Count (IG) includes promyelocytes, myelocytes and metamyelocytes but does not include bands. Percent differential counts (%) should be interpreted in the context of the absolute cell counts (cells/L). Performed By: #### C BCDF ####[address] [id number] Basophils (Bld) [#/Vol] 0.02 10*3/uL Normal 0.00 - 0.1 0 [facility] Comment on above: Performed By: #### C BCDF ####[address] [place], [place] [phone] Basophils/100 WBC (Bld) 0.3 % Normal 0.0 - 2.0 [facility] Comment on above: Performed By: #### C BCDF ####[address] [id number] Eosinophils (Bld) [#/Vol] 0.05 10*3/uL Normal 0.00 - 0 .70 [facility] Comment on above: Performed By: #### C BCDF ####[address] [id number] Eosinophils/100 WBC (Bld) 0.7 % Normal 0.0 - 6.0 [facility] Comment on above: Performed By: #### C BCDF ####[address] [id number] Erythrocyte distribution wid th (RBC) [Ratio] 12.3 % Normal 11.5 - 14.5 [facility] Comment on above: Performed By: #### C BCDF ####[address] [id number] Hematocrit (Bld) [Volume fraction] 47.3 % Normal 4 1.0 - 52.0 [facility] Comment on above: Performed By: #### C BCDF ####[address] [id number] Hemoglobin (Bld) [Mass/Vol] 16.3 g/dL Normal 13.5 - 1 7.5 [facility] Comment on above: Performed By: #### C BCDF ####[address] [id number] Lymphocytes (Bld) [#/Vol] 1.97 10*3/uL Normal 1.20 - 4 .80 [facility] Comment on above: Performed By: #### C BCDF ####[address] [place], [place] [id number] Lymphocytes/100 WBC (Bld) 27.6 % Normal 13.0 - 44. 0 [facility] Comment on above: Performed By: #### C BCDF ####[facility] [place], [place] [phone] MCHC (RBC) [Mass/Vol] 34.5 g/dL Normal 32.0 - 36.0 [facility] Comment on above: Performed By: #### C BCDF ####[address] [id number] MCV (RBC) [Entitic vol] 88 fL Normal 80 - 100 [facility] Comment on above: Performed By: #### C BCDF ####[address] [id number] Monocytes (Bld) [#/Vol] 0.72 10*3/uL Normal 0.10 - 1.0 0 [facility] Comment on above: Performed By: #### C BCDF ####[address] [id number] Monocytes/100 WBC (Bld) 10.1 % Normal 2.0 - 10.0 [facility] Comment on above: Performed By: #### C BCDF ####[address] [id number] Neutrophils (Bld) [#/Vol] 4.36 10*3/uL Normal 1.20 - 7 .70 [facility] Comment on above: Performed By: #### C BCDF ####[address] [id number] Neutrophils/100 WBC (Bld) 61.0 % Normal 40.0 - 80. 0 [facility] Comment on above: Performed By: #### C BCDF ####[address] [place], [place] [phone] Platelets (Bld) [#/Vol] 307 10*3/uL Normal 150 - 450 [facility] Comment on above: Performed By: #### C BCDF ####[facility] [place], [place] [phone] RBC 5.37 x10E12/L Normal 4.50 - 5.90 [facility] Comment on above: Performed By: #### C BCDF ####[facility] [place], [place] [phone] WBC (Bld) [#/Vol] 7.1 10*3/uL Normal 4.4 - 11.3 [facility] Comment on above: Performed By: #### C BCDF ####[address] [phone] COMPREHENSIVE PANELon 2021 Albumin [Mass/Vol] 4.6 g/dL Normal 3.4 - 5.0 [facility] Comment on above: Performed By: #### C MP ####[address] [id number] ALP [Catalytic activity/Vol] 108 U/L Normal 33 - 12 0 [facility] Comment on above: Performed By: #### C MP ####[address] [id number] ALT [Catalytic activity/Vol] 38 U/L Normal 10 - 52 [facility] Comment on above: Result Comment: Yumi ents treated with Sulfasalazine may generate falsely decreased results for ALT. Performed By: #### C MP ####[facility] [place] [phone] Anion gap [Moles/Vol] 17 mmol/L Normal 10 - 20 [facility] Comment on above: Performed By: #### C MP ####[address] [id number] AST [Catalytic activity/Vol] 66 U/L High 9 - 39 [facility] Comment on above: Performed By: #### C MP ####[facility] [place], [place] [phone] Bilirubin [Mass/Vol] 0.4 mg/dL Normal 0.0 - 1.2 [facility] Comment on above: Performed By: #### C MP ####[facility] [place], [place] [phone] Calcium [Mass/Vol] 9.2 mg/dL Normal 8.6 - 10.3 [facility] Comment on above: Performed By: #### C MP ####[address] [id number] Chloride [Moles/Vol] 103 mmol/L Normal 98 - 107 [facility] Comment on above: Performed By: #### C MP ####[address] [id number] Creatinine [Mass/Vol] 1.12 mg/dL Normal 0.50 - 1.30 [facility] Comment on above: Performed By: #### C MP ####[address] [id number] GFR/1.73 sq M.predicted judy g non-blacks MDRD (S/P/Bld) [Vol rate/Area] 80 mL/min/{1.73_m2} Normal >90 [facility] Comment on above: Result Comment: CALCULATIONS OF ESTIMATE D GFR ARE PERFORMED USING THE 2020 CKD-EPI STUDY REFIT EQUATION WITHOUT THE RACE VARIABLE FOR THE IDMS-TRACEABLE CREATININE METHODS. https://jasn.asnjournals.org/content//[id number] Performed By: #### C MP ####[facility] [place], [place] [id number] Glucose [Mass/Vol] 102 mg/dL High 74 - 99 [facility] Comment on above: Performed By: #### C MP ####[facility] [place], [place] [phone] HCO3 (Bld) [Moles/Vol] 21 mmol/L Normal 21 - 32 [facility] Comment on above: Performed By: #### C MP ####[facility] [place], [place] [phone] Potassium [Moles/Vol] 3.6 mmol/L Normal 3.5 - 5.3 [facility] Comment on above: Performed By: #### C MP ####[id number] [place], [place] [id number] Protein [Mass/Vol] 7.6 g/dL Normal 6.4 - 8.2 [facility] Comment on above: Performed By: #### C MP ####[facility] [place], [place] [phone] Sodium [Moles/Vol] 137 mmol/L Normal 136 - 145 [facility] Comment on above: Performed By: #### C MP ####[address] [id number] Urea nitrogen [Mass/Vol] 15 mg/dL Normal 6 - 23 [facility] Comment on above: Performed By: #### C MP ####[address] [phone] CREATINE KINASEon 06-17-2022 CK [Catalytic activity/Vol] 92 U/L Normal 0 - 325 [facility] Comment on above: Performed By: #### D RUBL #### [address] [phone] Clinical Event Noteon 2021 Clinical Event Note Clinical Event: Clinical Event Note: Details ADMISSION NOTE DATE: 06/17/22 TIME: 02:05 Patients Name: Edward Pal Patient arrived from: [facility] Upon arrival to unit, the patients personal belongings were gathered, inventoried, and laundered; vitals and weight were obtained; patient was wanded for security purposes, oriented to the unit and the admission process was initiated. Admitting Psychiatrist: Dr. Liang Diagnosis: Bi-Polar Reason for admission: The patient is a 52-year-old man with history of bipolar disorder and depression as well as substance use including opioids, alcohol, THC and tobacco who presents to the Emergency Department with a chief complaint of needing psychiatric evaluation. Patient reports that he has been out of his meds for the last month and feels like he is getting out of control. He reports he has not slept in 5 days and reports that he feels very jittery and anxious. He reports has been eating and drinking normally and reports that he has not been using any substances outside of alcohol which he drinks 12 drinks a day with last drink being earlier today. Reports he is never had a history of withdrawal requiring admission. He reports that he has not been able to follow-up with anyone given that he has been unable to do so in the last month. Reports no suicidal or homicidal ideation but reports that he started to hear voices but denies command hallucinations. Patient C-SSRS scored at no risk initially. Patient's friend Estefany ([phone]) called and voicemail left. Patient's friend Laurence Danial ([phone]) contacted and consulted. Laurence reported patient was recently released from skilled nursing which is where patient had been since February 19, 2022. Contact reported patient had learned of a warrant being out for patient and had turned self in. Contact reported wondering if patient had gotten out of skilled nursing and did not know patient was in the ED. Patient reports that he was staying at [facility] and states that he thinks he can return there . Current Stressors: Non-compliance; unemployed; homeless Tox Screen: Negative Abnormal Labs: elevated liver enzymes Behavior in ED: Calm and cooperative Allergies: No known Drug Allergies Patients Height: 170.1 cm Patients Weight: 82 kg Home Medications: Non-compliant Meds given in ED: Initial CIWA 12 Valium 10mg 21:34, Zyprexa Past Psych HX: bipolar disorder and depression as well as substance use including opioids, alcohol, THC and tobacco. [facility] on 02/05/2022- 02/12/2022, [facility] 06/2021; [facility] 06/2021; [facility] in the past. History of cutting and overdose Previous Substance Abuse Treatment (Location and Dates): Patient denies Significant Past Medical Hx: Hep C+ Current Mental Health Provider: previous treatment at [facility]. Electronic Signatures: Radha Amador) (Signed 17-Jun-2022 02:37) Authored: Clinical Event Note Last Updated: 17-Jun-2022 02:37 by Radha Amador (MARTINEZ) [facility] enter Consult-General Internal Med angela 06-17-2022 Consult-General Internal Medicine Service: Service: General Internal Medicine Consult: Consult requested by (Attending Name): Kamilah Rowell Reason: Adult Medical Examination and Evaluation for Behavioral Health Unit History of Present Illness: Admission Reason: Alcohol use disorder, hallucinations, yoan HPI: EDWARD CROWDER is a 52 year old Male presents with a history of bipolar disorder and depression with chief complaint of requesting psychiatric evaluation due to worsening hallucinations. Patient reports drinking 12 beers daily and has had no history of alcohol withdrawal symptoms. History of polysubstance abuse, however patient has not used. Patient was medically cleared for EPAT evaluation. Hospitalist team was consulted for adult medical examination and optimization for behavioral health unit. ED course: CBC unremarkable, BMP unremarkable except for AST elevated at 66, TSH 1.4, urine toxicology negative, UA negative. Patient examined and seen. Alert and oriented x3, explained to patient assessment, right to diamond grader, and the right to decline assessment. Patient verbalized understanding and agreed to assessment with RN as diamond grader. Patient denies chest pain, shortness of breath, palpitations, abdominal pain, fever or chills. Reports no current hallucinations, suicidal or homicidal ideations. Reports he feels safe on the unit. Voices no medical concerns at this time. Hospitalist to evaluate medical optimization for psychiatric treatment and evaluation. Neurological evaluation completed. No acute or chronic medical issues identified at this time that could be contributing to underlying psychiatric symptoms. Pt is medically optimized for inpatient behavioral health evaluation and treatment. Past medical history: Bipolar disorder, neck surgery, polysubstance abuse to include opiates and amphetamines. Social history: Tobacco use 1 pack/day, 12 beers daily, denies illicit drug use Family history: High blood pressure Review of systems: 10 system were reviewed and were negative except what was mentioned in history of present illness Review Family/Social History and ROS: Social History: Smoking Status: moderate user (uses 11-30 cig/day, OR 0.5-1.5 ppd, OR 2-3 cans/pouches loose leaf tobacco per week, OR 0.5-1.5 vape pods per day) (1) Alcohol Use: daily, history of abuse(1) Drug Use: history of abuse PER EPAT: Heroin (1) Drug 2 Use: history of abuse PER EPAT: Methamphetamine (1) Occupation: Unemployed(1) Social History: PER EPAT: [place] Citizen: Yes Payee: Patient Guardian/POA: Patient Current Stressors: Auditory hallucinations, substance use withdrawal, homelessness, joblessness. 06/17/22 Pt reports he is from [facility] [place] Reports he has 3 children, he has not seen for 1 year Reports having several clean/sober friends. (2) Allergies: No Known Allergies: Objective: Objective Information: T PRBPMAPSpO2 [id number]/7197% Date/Time06/17 14: 14: 14: 14: 12:00 Range(36.1C - 37.4C ) (69 - 130 ) (16 - 20 ) (84 - 196 )/ (49 - 129 ) (97% - 98% ) Highest temp of 37.4 C was recorded at 06/16 20:53 Physical Exam Narrative: Physical Exam: Constitutional: Well developed, awake/alert/oriented x3, no distress, cooperative Eyes: PERRL, EOMI, clear sclera ENMT: mucous membranes moist, no apparent injury, no lesions seen Head/Neck: Neck supple, no apparent injury, thyroid without mass or tenderness Respiratory/Thorax: Patent airways, normal breath sounds with good chest expansion, thorax symmetric Cardiovascular: Regular, rate and rhythm, no murmurs, normal S 1and S 2 Gastrointestinal: Nondistended, soft, non-tender, Genitourinary: denies CVA tenderness or suprapubic tenderness, voiding freely Musculoskeletal: ROM intact, no joint swelling, Extremities: normal extremities, no contusions or wounds seen Skin: warm, dry, intact Neurological: alert/oriented x 3, speech clear, cranial nerves II through XII grossly intact Psychiatric: appropriate mood and behavior Cranial Nerve Exam: II, III, IV, : Visual acuity within normal limits bilaterally, visual holman normal in all quadrants, TEDDY, EOMI Cranial Nerve exam: V: Facial sensations intact bilaterally to dull, sharp, and light touch stimuli Cranial Nerve exam VII: Facial muscle strength normal/equal bilaterally Cranial Nerve Exam VIII: Hearing is normal bilaterally Cranial Nerve IX,X: Palate and Uvula symmetrical, voice is normal Cranial Nerve XI: Shoulder shrug strong, equal bilaterally Cranial Nerve XII: Tongue moves symmetrically Motor : Good muscle tone, Strength equal upper and lower extremities unless otherwise stated above Cerebellar: normal gait unless otherwise stated above Refresh Home Medications List: Select to Refresh Home Medication ListRefresh Home Medications Medications: Medications: CENTRAL NERVOUS SYSTEM AGENTS: 1. (more content not included)... Normal [facility] Covid 19 Resultson 2 SARS-CoV-2 (COVID-19) RNA NESSA+probe Ql (Unsp spec) NEGATIVE COVID-19 Test Coronaviruses are common world-wide and are the cause of many common colds. SARS-COV2 is a new coronavirus that began circulating worldwide in 2019 so we are calling it COVID-19. It has been estimated that four out of five patients with COVID-19 will recover at home without the need for medical attention. Symptoms of COVID-19 may include cough, fever, shortness of breath, loss of taste or smell and other flu-like symptoms including chills, sore muscles, sore throat, and headache. Severe illness is more common in older people and people with other health problems such as high blood pressure, obesity, and immune system problems. If the test is positive, you have COVID-19. You will be contacted by the ordering physicians office and instructed to remain on home isolation, in accordance with CDC guidelines. You may also be contacted by the [facility] to see if any of your close contacts may have been exposed to the virus and need to quarantine. If the test is negative, you likely do not have COVID-19 at this time, but you still may have a different illness that can spread to other people (like Influenza, or the Flu) and could still be at risk for getting COVID-19. We recommend that you stay away from other people to limit the spread of illness until your symptoms are improving and you are fever-free for 24 hours without the use of fever lowering medications such as acetaminophen or ibuprofen. No test is 100% accurate so if you are still concerned you may have COVID-19, talk to your doctor about the need to continue to stay away from others. Medicines Unless your provider told you not to use the following: Acetaminophen (Tylenol and others) is generally safe. Anti-inflammatory medications, such as Ibuprofen (Advil or Motrin) or Naproxen (Aleve) can also be used. Fgfh-kzo-jwbtqfh cough and cold medicines can be used according to the instructions on the package. Some wemy-bld-zkmpnym medicines also contain acetaminophen. Make sure you are not taking more than your recommended dose. For those not hospitalized, there is no specific treatment available for this illness. Antibiotics do not treat Coronaviruses. Follow-Up Follow up with your doctor by scheduling a virtual visit or consider follow-up at one of our urgent care fever clinics. If you are having difficulty breathing, or are very weak and having difficulty standing, this is a medical emergency. Call 911 or have someone take you to the nearest emergency room immediately. If possible, wear a facemask. Additional guidance from the CDC for patients who tested POSITIVE for COVID-19 How to isolate: Isolate yourself in a specific room at home and limit your contact with others. Use a separate bathroom from other members of the household, when possible. Leave home only to get essential medical care. Do not go to work, school or public areas. Avoid using public transportation, ride-sharing, or taxis. Restrict contact with pets and other animals. If you must care for your pet or be around animals while you are sick, wash your hands before and after your interaction and wear a facemask. Make sure that shared spaces in the home have good airflow, such as by an air conditioner or an opened window, weather permitting. Personal Hygiene Procedures: Wear a face mask when in the same room as other people or pets. If a face mask interferes with your breathing, others should wear a mask when sharing space with you. Frequent hand-washing: wash your hands with soap and water for at least 20 seconds. If soap and water are not available, use alcohol-based hand global recruiter. Avoid touching your eyes, nose, and mouth with unwashed hands. Household Hygiene Procedures: Avoid sharing personal household items such as dishes, glassware, cups, eating utensils, towels or bedding with other people or pets in your home. After use, these items should be washed with soap and hot water. Disinfect all high-touch surfaces every day with antibacterial cleaning solutions such as Lysol wipes, bleach, cleansers, etc. High-touch surfaces include tabletops, doorknobs, bathroom fixtures, toilets, phones, keyboards, tablets and bedside tables. Immediately clean any surfaces that may have blood, poop or body fluids on them, using antibacterial cleaning solutions such as Lysol wipes, bleach, cleansers, etc. If clothing or bedding come into contact with blood, poop or body fluids, they should be washed immediately. Follow the directions on the laundry detergent and clothing labels but hot water is recommended when possible. Stopping home isolation precautions: If possible, consult your doctor before stopping home isolation precautions. According to the CDC, you can discontinue home isolation precautions when you have met both of these criteria: Your fever and respiratory symptoms have been gone for 24 bettina (more content not included)... Normal [facility] Discharge Planning [id number] 1 08-18-2021 Discharge Planning Note2 Discharge Planning: Anticipated Discharge [id number] Discharge Planning 06-17-22 Pt will likely need to access a homeless intermediate unless he pursues and secures residential/sober living or makes arrangements with family/friends. Indicates he might stay with friend Chad. He is undecided about returning to [facility].Told HOME SERVICE DEMONSTRATOR he left message for Leonard @ [facility] this morning to alert them to his hospitalization. He accepted chem dep call list and applications and indicates understanding he is needing to make any initial contacts. Pt is receptive to follow-up for out patient mental health/dual dx at [facility]. LEONARDA Romero 06/19/22 Pt's demographics indicate [employer] [place] address. Provided information re Leo's (JoGuru) [facility] in [facility] needs [facility]. LEONARDA Romero Assessment: Discharge Planning Assessment [id number] Lives Withalone(1) Living Arrangementshomeless/intermediate(1) Stated Reason for Admission , hearing voices (2) Arrived Fromemergency department (2) Resource/Environmental Concernsfinancial(2) Financial Concernsunemployed(2) Anticipated Transition Toshelter(2) [facility]; community agency; case maker(2) Discharge Documentation: Discharge/Transfer Date/[id number] 11:24 Discharged Accompanied Byfriend Transportation Methodprivate car Discharge Modeambulatory Code StatusCode Status order at time of discharge: Full Code Discharge Order Writtenyes [place] DNR Form Sent with Patient and/or Familyn/a Valuables/Medications/Belongings Returnedyes Final Disposition.Home Electronic Signatures: Jaida Dorsey (YOLA) (Signed 19-Jun-2022 13:55) Authored: Discharge Planning, Assessment, Discharge Documentation Adam Rojas (RN) (Signed 22-Jun-2022 15:33) Authored: Discharge Planning, Discharge Documentation Last Updated: 22-Jun-2022 15:33 by Adam Rojas (RN) References: 1. Data Referenced From Psychiatric Assessment - Social Work-Inpatient 17-Jun-2022 07:25 2. Data Referenced From Patient Profile - Adult v2 17-Jun-2022 04:17 Normal [facility] GLUCOSE, FASTINGon 2 Glucose [Mass/Vol] 69 mg/dL Low 74 - 99 [facility] Comment on above: Result Comment: INCR EASED RISK FOR DIABETES 100-125 mg/dL DIAGNOSTIC OF DIABETES >=126 mg/dL Diagnosis of diabetes mellitus requires confirmation of an abnormal result by repeat testing. [place] [employer], Diabetes Care; 33(Supp 1), Jul 2009. Performed By: #### G LUCF ####[facility] [place], [place] [id number] LIPID PANEL (CORONARY RISK 2 )on 06-17-2022 Cholesterol [Mass/Vol] 119 mg/dL Normal 0 - 199 [facility] Comment on above: Result Comment: . AGE DESIRABLE BORDERLINE HIGH HIGH 0-19 Y 0 - 169 170 - 199 >/= 200 20-24 Y 0 - 189 190 - 224 >/= 225 >24 Y 0 - 199 200 - 239 >/= 240 All ranges are based on fasting samples. Specific therapeutic targets will vary based on patient-specific cardiac risk. . Pediatric guidelines reference:Pediatrics 2011, 128(S5). Adult guidelines reference: NCEP ATPIII Guidelines, ROBERTO 2001, 258:2486-97 . Venipuncture immediately after or during the administration of Metamizole may lead to falsely low results. Testing should be performed immediately prior to Metamizole dosing. Performed By: #### L ACT #### [address] [id number] Cholesterol in HDL [Mass/Vol] 52.7 mg/dL Normal [facility] Comment on above: Result Comment: . AGE VERY LOW LOW NORMAL HIGH 0-19 Y < 35 < 40 40-45 ---- 20-24 Y ---- < 40 >45 ---- >24 Y ---- < 40 40-60 >60 . Performed By: #### L ACT #### [address] [id number] Cholesterol in LDL [Mass/Vol] 49 mg/dL Normal 0 - 99 [facility] Comment on above: Result Comment: . NEAR BORD AGE DESIRABLE OPTIMAL HIGH HIGH VERY HIGH 0-19 Y 0 - 109 --- 110-129 >/= 130 ---- 20-24 Y 0 - 119 --- 120-159 >/= 160 ---- >24 Y 0 - 99 100-129 130-159 160-189 >/=190 . Performed By: #### L ACT #### [address] [id number] Cholesterol in VLDL [Mass/Vol] 18 mg/dL Normal 0 - 4 0 [facility] Comment on above: Performed By: #### L ACT #### [address] [id number] Cholesterol.total/Cholestero l in HDL [Mass ratio] 2.3 {ratio} Normal [facility] Comment on above: Result Comment: REF VALUES DESIRABLE < 3.4 HIGH RISK > 5.0 Performed By: #### L ACT #### [address] [id number] Triglyceride [Mass/Vol] 88 mg/dL Normal 0 - 149 [facility] Comment on above: Result Comment: . AGE DESIRABLE BORDERLINE HIGH HIGH VERY HIGH 0 D-90 D 19 - 174 ---- ---- ---- 91 D- 9 Y 0 - 74 75 - 99 >/= 100 ---- 10-19 Y 0 - 89 90 - 129 >/= 130 ---- 20-24 Y 0 - 114 115 - 149 >/= 150 ---- >24 Y 0 - 149 150 - 199 200- 499 >/= 500 . Venipuncture immediately after or during the administration of Metamizole may lead to falsely low results. Testing should be performed immediately prior to Metamizole dosing. Performed By: #### L ACT #### [address] [id number] Patient Profile - Adult v2on 06-17-2022 Patient Profile - Adult v2 Profile: Initial Info: How to be AddressedJoseph or Tee(1) Spoken Language PreferredEnglish (2) Source of Informationpatient Stated Reason for Admission Uh, hearing voices Wants Family/Rep Notified of Admissionno Notify PCPdo not notify PCP Informed of Patient Visiting Rightsyes [facility] Employment Statusunemployed(3) Current or Previous Servicenone(3) Patient Belongingsremains with patient Patient Belongings Remaining with Patientclothing; ramirez/credit card; misc paperwork and cards; cigarettes, risk consultant no winter coat, no cell phone Medications Brought to Hospitalno General Health: Blood Avoidance/Restrictionsnone Weight in kg82 kilogram(s)(4) Weight in hdc144.7 pound(s) Weight Methodstated Scale Typestate Height in cm170.1 centimeter(s)(4) Height in feet5 feet Height in inches6.97 inch(es) Height Methodstated BMI (kg/m2)28.34 square meter RSP Based Care: How would you like to participate in your care I just want back on my medications What is the number one concern for you during this hospitalization I just want back on my medications What is the most important thing we can do to support you during this hospitalization I am not sure Is there anything we need to know to best care for you no, not really Substance: Smoking Statusmoderate user (uses 11-30 cig/day, OR 0.5-1.5 ppd, OR 2-3 cans/pouches loose leaf tobacco per week, OR 0.5-1.5 vape pods per day) (3) Tobacco Cessation Education (provide if tobacco use within the last 12 mos)yes Alcohol Usedaily, history of abuse(3) Drug Usehistory of abuse Heroin (3) Drug 2 Usehistory of abuse Methamphetamine (3) Health Mgmt: Symptoms/Conditions Managed at [facility] Relationship/Environ: Resource/Environmental Concernsfinancial Financial Concernsunemployed Primary Source of Support/Comfortno one Lives Withhomeless Living Arrangementshomeless/intermediate Services [facility]; community agency; case maker Anticipated Transition Toshelter Significant IndicatorsComplete Information Review: Allergies, Home Meds and Significant Events have been Reviewed and Verified with Patient/Familyyes ALLERGY, INTOLERANCE, ADVERSE EVENT: Allergies: No Known Allergies: Active Electronic Signatures: Radha Amador) (Signed 17-Jun-2022 04:30) Authored: Initial Info, General Health, RSP Based Care, Substance, Health Mgmt, Relationship/Environ, Additional Information Last Updated: 17-Jun-2022 04:30 by Radha Amador (MARTINEZ) References: 1. Data Referenced From Patient Profile - Adult v2 06-Feb-2022 00:00 2. Data Referenced From Triage - ED 16-Jun-2022 20:53 3. Data Referenced From Psychiatric Assessment - Social Work-Inpatient 16-Jun-2022 23:26 4. Data Referenced From 1. Vital Signs 16-Jun-2022 20:[address] [facility] Provider Note - ED v3on 12-0 Provider Note - ED v3 Provider Note: Chart Review: ED NOTES ED NOTES: HPI: The patient is a 52-year-old man with history of bipolar disorder and depression as well as substance use including opioids, alcohol, THC and tobacco who presents to the Emergency Department with a chief complaint of needing psychiatric evaluation. Patient reports that he has been out of his meds for the last month and feels like he is getting out of control. He reports he has not slept in 5 days and reports that he feels very jittery and anxious. He reports has been eating and drinking normally and reports that he has not been using any substances outside of alcohol which he drinks 12 drinks a day with last drink being earlier today. Reports he is never had a history of withdrawal requiring admission. He reports that he has not been able to follow-up with anyone given that he has been unable to do so in the last month. Reports no suicidal or homicidal ideation but reports that he started to hear voices but denies command hallucinations. PAST MEDICAL HISTORY: as per HPI ALLERGIES: Nursing notes and EMR reviewed. MEDICATIONS: Nursing notes and EMR reviewed. SOCIAL HISTORY: History of tobacco use, active alcohol use, history of opioids THC use REVIEW OF SYSTEMS All systems listed below were reviewed and are negative unless otherwise noted in the report. [CONSTITUTIONAL] [EYES] [ENT] [CARDIOVASCULAR] [RESPIRATORY] [GASTROINTESTINAL] [GENITOURINARY] [MUSCULOSKELETAL] [DERMATOLOGICAL] [NEUROLOGICAL] PHYSICAL EXAM: VITAL SIGNS: Nursing notes reviewed. GENERAL: Alert and interactive EYES: Eyes track. No injection. ENT: Airway patent. Mucus membranes moist. RESPIRATORY: Nonlabored breathing. Chest rise symmetric CARDIOVASCULAR: Tachycardic [Regular rhythm.] GASTROINTESTINAL: No distension. MUSCULOSKELETAL: No deformity. No swelling. NEUROLOGICAL: Awake. Moves extremities SKIN: Warm. Dry. PSYCH: Pressured speech. Anxious but not aggressive DIAGNOSTIC STUDIES Labs: - Please see EMR Radiology: - Please see EMR EKG Per my interpretation: Electrocardiogram ECG RATE: 117 RHYTHM: [Sinus] AXIS: [Normal] INTERVALS: [Normal] ST-T WAVE CHANGES: [Normal] ABNORMALITIES/COMPARISON: Largely unchanged most recent EKG from February 05, 2022. Emergency Department Course / Medical Decision Making The patient is admitted to the Emergency Department for evaluation of above. Complete history and physical examination was performed by me. Electronic medical record reviewed. Patient presents with symptoms consistent with yoan in the setting of having bipolar disorder. Most concerned about alcohol drawl. I gave him thiamine folate and multivitamin and put him on a CIWA protocol. He did get some Valium because he scored high on CIWA. No evidence of delirium tremens at this time. EKG was obtained which shows no signs of ischemia so doubt vasospasm from concomitant cocaine or other sympathomimetic use. He does not seem to be anticholinergic. I did send a TSH on him in addition to the usual screening labs for medical clearance. I also gave him a liter of fluids. COVID and urine came back reassuring. I also treated the patient with his home Zyprexa based on his discharge report which I reviewed in the EMR from February. Patient's blood work and urine was reassuring. EPAT evaluated the patient and agree that he should be hospitalized for yoan. At this point, patient is medically cleared for psychiatric hospitalization. He had improvement of his vital signs and while he is anxious, I think that his symptoms are more due to yoan and less due to alcohol withdrawal at this point. Patient will be admitted to [facility] for further psychiatric services. DIAGNOSIS: Yoan Alcohol use disorder hallucinations DISPOSITION: 1) hospitalized HISTORY OF PRESENTING ILLNESS EDWARD is a 52 year old Male and was seen by me at 16-Jun-2022 21:01 for a chief complaint of psychiatric evaluation ( I've been out of my meds for about a month. patient states he has been having racing thoughts. Neither confirms or denies SI/HI or AH/VH.)(1). Triage Information: Most recent Vital Sign Value Date Temp (F): 99.3 06-16-2022 20:53 Temp (C): 37.4 06-16-2022 20:53 Heart Rate (beats/min): 130 06-16-2022 20:53 Respirations (breaths/min): 20 06-16-2022 20:53 SpO2 (%): 97 06-16-2022 20:53 BP Systolic (mm Hg): 196 06-16-2022 20:53 BP Diastolic (mm Hg): 96 06-16-2022 20:53 PAST MEDICAL HISTORY ALLERGIES/INTOLERANCES: No Known Allergies HEALTH HISTORY: No documented data. OUTPATIENT MEDICATIONS: Home Medications Review Status for Reconciliation: N/A Med Status: Patient Currently Takes Medications Drug Name: OLANZapine 20 mg oral tablet Instructions: 1 tab(s) orally once (at bedtime)mood/thoughts Drug Name: hydrOXYzine hydrochloride 50 mg oral tablet Instructions: 1 tab(s) orally gisell (more content not included)... Normal [facility] TSH WITH REFLEX TO FREE T4 I F ABNORMALon 06-17-2022 TSH Qn 1.40 m[IU]/L Normal 0.44 - 3.98 [facility] Comment on above: Result Comment: TSH testing is performed using different testing methodology at [facility] than at other [facility] hospitals. Direct result comparisons should only be made within the same method. Performed By: #### D BRENT #### [address] [id number] CORONAVIRUS 2019, SCREEN ASY MPTOMATICon 06-16-2022 SARS-CoV-2 (COVID-19) RNA NESSA+probe Ql (Unsp spec) Not detected Normal Not Detected [facility] Comment on above: Result Comment: . This test has received FDA Emergency Use Authorization (EUA) and has been verified by [facility]. This test is only authorized for the duration of time that circumstances exist to justify the authorization of the emergency use of in vitro diagnostic tests for the detection of SARS-CoV-2 virus and/or diagnosis of COVID-19 infection under section 564(b)(1) of the Act, 21 U.S.C. 360bbb-3(b)(1), unless the authorization is terminated or revoked sooner. [facility] is certified under CLIA-88 as qualified to perform high complexity testing. Testing is performed in the [facility] laboratory located at [address] [place] [address]. SARS-CoV-2/Flu/RSV Multiplex Test: Fact sheet for providers: https://www.fda.gov/media/628264/download Fact sheet for patients: https://www.fda.gov/media/384618/download Performed By: #### C BCDF #### [address] [id number] Lab Specimen Source Nasal, Nasopharyngeal Normal [facility] Comment on above: Performed By: #### C BCDF #### [address] [id number] DRUG SCREEN,URINEon 06-16-20 22 AMPHETAMINE SCREEN,U Negative Normal NEGATIVE [facility] Comment on above: Result Comment: CUTO FF LEVEL: 500 NG/ML Cross-reactivity has been reported with high concentrations of the following drugs: buproprion, chloroquine, chlorpromazine, ephedrine, mephentermine, fenfluramine, phentermine, phenylpropanolamine, pseudoephedrine, and propranolol. Performed By: #### D RUG3 ####[facility] [place], [place] [id number] BARBITURATES SCREEN,U Negative Normal NEGATIVE [facility] Comment on above: Result Comment: CUTO FF LEVEL: 200 NG/ML Performed By: #### D RUG3 ####[address] [id number] BENZODIAZEPINES SCREEN,U Negative Normal NEGATIVE [facility] Comment on above: Result Comment: CUTO FF LEVEL: 200 NG/ML Performed By: #### D RUG3 ####[address] [id number] CANNABINOIDS SCREEN,U Negative Normal NEGATIVE [facility] Comment on above: Result Comment: CUTO FF LEVEL: 50 NG/ML Performed By: #### D RUG3 ####[address] [id number] COCAINE METABOLITE SCREEN,U Negative Normal NEGATIVE [facility] Comment on above: Result Comment: CUTO FF LEVEL: 150 NG/ML Performed By: #### D RUG3 ####[address] [id number] DRUG SCREEN COMMENT SEE BELOW Normal [facility] Comment on above: Result Comment: Drug screen results are presumptive and should not be used to assess compliance with prescribed medication. Contact the performing [facility] laboratory to add-on definitive confirmatory testing if clinically indicated. . Toxicology screening results are reported qualitatively. The concentration must be greater than or equal to the cutoff to be reported as positive. The concentration at which the screening test can detect an individual drug or metabolite varies. The absence of expected drug(s) and/or drug metabolite(s) may indicate non-compliance, inappropriate timing of specimen collection relative to drug administration, poor drug absorption, diluted/adulterated urine, or limitations of testing. For medical purposes only; not valid for forensic use. . Interpretive questions should be directed to the laboratory medical directors. Performed By: #### D RUG3 ####[address] [id number] FENTANYL SCREEN,URINE Negative Normal NEGATIVE [facility] Comment on above: Result Comment: CUTO FF LEVEL: 5 NG/ML Performed By: #### D RUG3 ####[address] [id number] METHADONE SCREEN,U Negative Normal NEGATIVE [facility] Comment on above: Result Comment: CUTO FF LEVEL: 150 NG/ML The metabolite J-vcvvd-vrktsabcefdfuc (LAAM) is not detected by this method in concentrations that would be found in the urine of patients on LAAM therapy. Performed By: #### D RUG3 ####[address] [id number] OPIATES SCREEN,U Negative Normal NEGATIVE [facility] Comment on above: Result Comment: CUTO FF LEVEL: 300 NG/ML The opiate screen does not detect fentanyl, meperidine, or tramadol. Oxycodone is not consistently detected (refer to Oxycodone Screen, Urine result). Performed By: #### D RUG3 ####[address] [id number] OXYCODONE SCREEN,U Negative Normal NEGATIVE [facility] Comment on above: Result Comment: CUTO FF LEVEL: 100 NG/ML This test will accurately detect both oxycodone and oxymorphone. Performed By: #### D RUG3 ####[id number] [place], [place] [id number] PCP SCREEN,U Negative Normal NEGATIVE [facility] Comment on above: Result Comment: CUTO FF LEVEL: 25 NG/ML Cross-reactivity has been reported with dextromethorphan. Performed By: #### D RUG3 ####[address] [id number] Risk Screen - Adult Emergenc yon 06-16-2022 Risk Screen - Adult Emergency Preferred Language: Preferred Language: Preferred Language for Discussing Health Care (patient/designee)Tajik Patient Preferred Pharmacy: Patient Preferred Pharmacy Statement: I have reviewed and updated the patient's preferred pharmacy selection for today's visit. Advanced Directives: Advance Directive/DNRno Family Violence Adult: Abuse Screen: Are you or have you been threatened or abused physically, emotionally, or sexually by anyoneno Learning Assessment (Patient): Learning Assessment (Patient): Patient is Able to be Assessed for Learningyes Factors Influencing Readiness to Learnacuteness of illness; anxiety; depression Factors that Impact Ability to Learnacuteness of illness Devices/Methods Used to Communicatecommunication board Learning Preferencesaudio; written material; verbal instruction Cultural Considerationsnone Developmental Considerationsnone Sabianist Considerationsnone Learning Assessment (Other Learner): Learning Assessment (Other Learner): Other learner availableno Pressure Injury/TB/Substance: Pressure Injury: Pressure Injury Present on Admissionno Do you have a coughno Smoking Statusmoderate user (uses 11-30 cig/day, OR 0.5-1.5 ppd, OR 2-3 cans/pouches loose leaf tobacco per week, OR 0.5-1.5 vape pods per day) Tobacco Cessation Education (provide if tobacco use within the last 12 mos) patient declined Alcohol Usedaily, history of abuse Drug Usehistory of abuse Admission Risk Screen: Significant IndicatorsComplete CAGE: CAGE: Is this an injured patient at a Trauma Center ([facility]/[place]): no Electronic Signatures: Ayleen Galloway (RN) (Signed 16-Jun-2022 20:57) Authored: Preferred Language, Patient Preferred Pharmacy, Advanced Directives, Family Violence Adult, Learning Assessment (Patient), Learning Assessment (Other Learner), Pressure Injury/TB/Substance, Pressure Injury, CAGE Last Updated: 16-Jun-2022 20:57 by Ayleen Galloway (RN) Normal [facility] Triage - EDon 06-16-2022 Triage - ED Chart Review: PRIMARY ASSESSMENT EDWARD CROWDER's primary assessment is Within Defined Limits. The airway is open and patent. Breathing spontaneous and unlabored with clear breath sounds bilaterally. Circulation is normal with good peripheral pulses. Skin is warm and dry and color is normal for race. ARRIVAL INFORMATION Means of Arrival: Ambulatory Mode of Arrival: private vehicle Accompanied By: self Language: Spoken Language Preferred: Tajik Reading Language Preferred: Tajik Sterilization Tech Requested: no carburetor mechanic was requested MDRO: History of MDRO: no Present on Arrival: Device Present on Arrival to ED: no Pressure Ulcer Present on Arrival to ED: no CHIEF COMPLAINT EDWARD CROWDER is a Male patient with a chief complaint of psychiatric evaluation ( I've been out of my meds for about a month. patient states he has been having racing thoughts. Neither confirms or denies SI/HI or AH/VH.). Triage Date/Time: 16-Jun-2022 20:54 FRED: 2 Pain Rating (0-10): unable to assess Vital Signs: Temperature: 99.3F ( 37.4C) taken temporal Blood Pressure: 196/96 Mean: Heart Rate: 130 Respiratory Rate: 20 Pulse Oximetry: 97% on room air, no respiratory support. Height: 5 feet 7.00 inches. 170.1 CM Weight: 180.7 pounds. Calculated 82.0 kg. (stated) Calculated BMI (kg/m2): 28.340 Calculated BSA (m2) 1.97 [place] Coma Scale: Best Eye Response: (E4) spontaneous Best Motor Response: (M6) obeys commands Best Verbal Response: (V5) oriented [place] Score: 15 Patient has homicidal thoughts: no Risk Screens Suicide Risk Screen In the Past Month: Have you wished you were or wished you could go to sleep and not wake up no In the Past Month: Have you had any actual thoughts of killing yourself no In Your Lifetime: Have you ever done anything, started to do anything, or prepared to do anything to end your life no [place] Fall Scale Screening Has the patient fallen before (or is the patient in the ED as a result of a fall) has not had a fall Does the patient have an impaired gait does not have impaired gait Is the patient cognitively impaired not cognitively impaired Interventions: Alcon Fall Interventions: LOW INTERVENTIONS: *patient oriented to surroundings and call system, * patient/family falls education completed and documented, *patients fall status communicated during bedside handoff, *whiteboard updated, *mode of toileting discussed with patient, *bed in low position with brakes locked, *call light in reach, * non-skid footwear PAST MEDICAL HISTORY Immunization History: Last Known Tetanus Immunization: Unknown TRAVEL HISTORY Travel History Coronavirus Screening: no exposure or symptoms Travel Exposure History: NO travel to International locations in the past 30 days PAIN Pain Scale Used: ART Pain Rating (0-10): unable to assess Past Medical History: Past Medical History Reviewedyes Electronic Signatures: Ayleen Galloway (SHELIA) (Signed 16-Jun-2022 20:56) Authored: Quick Triage, Risk Screens, Pain, Arrival, ABCD, Immunizations, Travel History, Chart Review, Past Medical History Last Updated: 16-Jun-2022 20:56 by Ayleen Galloway (RN) Normal [facility] URINALYSISon 06-16-2022 Appearance (U) CLEAR Normal CLEAR [facility] Comment on above: Performed By: #### U A ####[address] [id number] Bilirubin Ql (U) Negative Normal NEGATIVE [facility] Comment on above: Performed By: #### U A ####[address] [id number] Color (U) YELLOW Normal STRAW,YELLOW [facility] Comment on above: Performed By: #### U A ####[address] [id number] Glucose Ql (U) Negative Normal NEGATIVE [facility] Comment on above: Performed By: #### U A ####[address] [id number] Hemoglobin Ql (U) Negative Normal NEGATIVE [facility] Comment on above: Performed By: #### U A ####[address] [id number] Ketones Ql (U) Negative Normal NEGATIVE [facility] Comment on above: Performed By: #### U A ####[address] [id number] Leukocyte esterase Test stri p Ql (U) Negative Normal NEGATIVE [facility] Comment on above: Performed By: #### U A ####[address] [id number] Nitrite Ql (U) Negative Normal NEGATIVE [facility] Comment on above: Performed By: #### U A ####[address] [id number] pH (U) 5.5 [pH] Normal 5.0 - 8.0 [facility] Comment on above: Performed By: #### U A ####[address] [id number] Protein Ql (U) Negative Normal NEGATIVE [facility] Comment on above: Performed By: #### U A ####[address] [id number] Specific gravity (U) [Rel density] 1.015 Normal 1.005 - 1.035 [facility] Comment on above: Performed By: #### U A ####[address] [id number] Urobilinogen (U) [Mass/Vol] mg/dL Normal 0.0 - 1. 9 [facility] Comment on above: Performed By: #### U A ####[address] [id number] APTTon 02-08-2022 aPTT Coag (Bld) [Time] 34 s Normal 26 - 39 [facility] Comment on above: Result Comment: THE APTT IS NO LONGER USED FOR MONITORING UNFRACTIONATED HEPARIN THERAPY. FOR MONITORING HEPARIN THERAPY, USE THE HEPARIN ASSAY. Performed By: #### A PTT #### [address] [id number] CBCon 02-08-2022 Erythrocyte distribution wid th (RBC) [Ratio] 14.2 % Normal 11.5 - 14.5 [facility] Comment on above: Performed By: #### C BC #### [address] [id number] Hematocrit (Bld) [Volume fraction] 45.1 % Normal 41.0 - 52.0 [facility] Comment on above: Performed By: #### C BC #### [id number] [place], [place] [id number] Hemoglobin (Bld) [Mass/Vol] 14.9 g/dL Normal 13.5 - 1 7.5 [facility] Comment on above: Performed By: #### C BC #### [address] [id number] MCHC (RBC) [Mass/Vol] 33.0 g/dL Normal 32.0 - 36.0 [facility] Comment on above: Performed By: #### C BC #### [facility] [address] [facility] [place] [id number] MCV (RBC) [Entitic vol] 96 fL Normal 80 - 100 [facility] Comment on above: Performed By: #### C BC #### [facility] [address] [facility] [place] [id number] Platelets (Bld) [#/Vol] 356 10*3/uL Normal 150 - 450 [facility] Comment on above: Performed By: #### C BC #### [facility] [address] [facility] [place] [id number] RBC 4.68 x10E12/L Normal 4.50 - 5.90 [facility] Comment on above: Performed By: #### C BC #### [facility] [address] [facility] [place] [phone] WBC (Bld) [#/Vol] 6.4 10*3/uL Normal 4.4 - 11.3 [facility] Comment on above: Performed By: #### C BC #### [facility] [address] [facility] [place] [id number] PT/INRon 02-08-2022 PT Coag (PPP) [Time] 10.9 s Normal 9.8 - 13.4 [facility] Comment on above: Performed By: #### F OLA2 #### [facility] [address] [place] [address] PT, INR 0.9 Normal 0.9 - 1.1 [facility] Comment on above: Performed By: #### F OLA2 #### [facility] [address] [place] [address] FOLATE, SERUMon 02-07-2022 Folate [Mass/Vol] 21.7 ng/mL Normal >5.0 [facility] Comment on above: Result Comment: Low <3.4 Borderline 3.4-5.0 Normal >5.0 . Biotin interference may cause falsely elevated results. Patients taking a Biotin dose of up to 5 mg/day should refrain from taking Biotin for 24 hours before sample collection. Providers may contact their local laboratory for further information. Performed By: #### F OLA2 #### [facility] [address] [place] [address] HEPATITIS PANEL,ACUTE (HCFA) on 02-07-2022 HEPATITIS A AB-IGM Non-Reactive Normal NONREACTIVE [facility] Comment on above: Result Comment: Biot in interference may cause falsely decreased results. Patients taking a Biotin dose of up to 5 mg/day should refrain from taking Biotin for 24 hours before sample collection. Providers may contact their local laboratory for further information. Performed By: #### H EPA2 #### [facility] [address] [place] [address] HEPATITIS B CORE AB,IGM Non-Reactive Normal NONREACTIV E [facility] Comment on above: Result Comment: Resu lts from patients taking biotin supplements or receiving high-dose biotin therapy should be interpreted with caution due to possible interference with this test. Providers may contact their local laboratory for further information. Performed By: #### H EPA2 #### [facility] [address] [place] [address] HEPATITIS C AB Reactive Abnormal NONREACTIVE [facility] Comment on above: Result Comment: Resu lts from patients taking biotin supplements or receiving high-dose biotin therapy should be interpreted with caution due to possible interference with this test. Providers may contact their local laboratory for further information. HCV antibody detected. HCV RNA PCR has been ordered to evaluate the possibility of a current infection. Performed By: #### H EPA2 #### [facility] [address] [place] [address] HEP.B SURFACE AG Non-Reactive Normal NONREACTIVE [facility] Comment on above: Result Comment: Biot in interference may cause falsely decreased results. Patients taking a Biotin dose of up to 5 mg/day should refrain from taking Biotin for 24 hours before sample collection. Providers may contact their local laboratory for further information. Performed By: #### H EPA2 #### [facility] [address] [place] [address] Lab Specimen Source Normal [facility] Comment on above: Performed By: #### H EPA2 #### [facility] [address] [place] [address] Performed By: #### H IV #### [facility] [address] [place] [address] Performed By: #### F OLA2 #### [facility] [address] [place] [address] HIV 1/2 ANTIGEN/ANTIBODY SCR EEN WITH REFLEX TO CONFIRMATIONon 02-07-2022 HIV 1/2 AG/AB SCREEN Non-Reactive Normal NONREACTIVE [facility] Comment on above: Result Comment: HIV Ag/Ab screen is performed using the Siemens FitclinellInfrafone HIV Ag/Ab Combo assay which detects the presence of HIV p24 antigen as well as antibodies to HIV-1 (Group M and O) and HIV-2. . No laboratory evidence of HIV infection. If acute HIV infection is suspected, consider testing for HIV RNA by PCR (viral load). Performed By: #### H IV #### [facility] [address] [place] [id number] SYPHILIS SCREENING WITH REFL EXon 02-07-2022 SYPHILIS TOTAL AB Non-Reactive Normal NONREACTIVE [facility] Comment on above: Result Comment: No s ignificant level of Treponema pallidum antibody detected. Repeat testing in 2 to 4 weeks may be considered if early infection or incubating syphilis infection is suspected. Performed By: #### F OLA2 #### [facility] [address] [place] [id number] EMR ADDONon 02-06-2022 ADDON CONFIRMATION REQUEST REC'D Normal [facility] Comment on above: Performed By: #### E MRAD #### [facility] [address] [place], [place] [id number] FOLATE, SERUMon 02-06-2022 Folate [Mass/Vol] 22.9 ng/mL Normal >5.0 [facility] Comment on above: Result Comment: Low <3.4 Borderline 3.4-5.0 Normal >5.0 . Biotin interference may cause falsely elevated results. Patients taking a Biotin dose of up to 5 mg/day should refrain from taking Biotin for 24 hours before sample collection. Providers may contact their local laboratory for further information. Performed By: #### F OLA2 #### [facility] [address] [place] [address] HEMOGLOBIN A1Con 02-06-2022 Glucose [Mass/Vol] 103 mg/dL Normal [facility] Comment on above: Performed By: #### H BA1E #### [facility] [address] [place] [address] HbA1c (Bld) [Mass fraction] 5.2 % Normal [facility] Comment on above: Result Comment: Diag nosis of Diabetes-Adults Non-Diabetic: < or = 5.6% Increased risk for developing diabetes: 5.7-6.4% Diagnostic of diabetes: > or = 6.5% . Monitoring of Diabetes Age (y) Therapeutic Goal (%) Adults: >18 <7.0 Pediatrics: 13-18 <7.5 7-12 <8.0 0- 6 7.5-8.5 [place] [employer]. Diabetes Care 33(S1), Jul 2009. Performed By: #### H BA1E #### [facility] [address] [place] [address] LIPID PANEL (CORONARY RISK 2 )on 02-06-2022 Cholesterol [Mass/Vol] 158 mg/dL Normal 0 - 199 [facility] Comment on above: Result Comment: . AGE DESIRABLE BORDERLINE HIGH HIGH 0-19 Y 0 - 169 170 - 199 >/= 200 20-24 Y 0 - 189 190 - 224 >/= 225 >24 Y 0 - 199 200 - 239 >/= 240 All ranges are based on fasting samples. Specific therapeutic targets will vary based on patient-specific cardiac risk. . Pediatric guidelines reference:Pediatrics 2011, 128(S5). Adult guidelines reference: NCEP ATPIII Guidelines, ROBERTO 2001, 258:2486-97 . Venipuncture immediately after or during the administration of Metamizole may lead to falsely low results. Testing should be performed immediately prior to Metamizole dosing. Performed By: #### L IPID #### [facility] [address] [place], [place] [id number] Cholesterol in HDL [Mass/Vol] 63.8 mg/dL Normal [facility] Comment on above: Result Comment: . AGE VERY LOW LOW NORMAL HIGH 0-19 Y < 35 < 40 40-45 ---- 20-24 Y ---- < 40 >45 ---- >24 Y ---- < 40 40-60 >60 . Performed By: #### L IPID #### [facility] [id number] [facility] [place] [id number] Cholesterol in LDL [Mass/Vol] 80 mg/dL Normal 0 - 99 [facility] Comment on above: Result Comment: . NEAR BORD AGE DESIRABLE OPTIMAL HIGH HIGH VERY HIGH 0-19 Y 0 - 109 --- 110-129 >/= 130 ---- 20-24 Y 0 - 119 --- 120-159 >/= 160 ---- >24 Y 0 - 99 100-129 130-159 160-189 >/=190 . Performed By: #### L IPID #### [facility] [id number] [facility] [place] [id number] Cholesterol in VLDL [Mass/Vol] 14 mg/dL Normal 0 - 4 0 [facility] Comment on above: Performed By: #### L IPID #### [facility] [id number] [facility] [place], [place] [id number] Cholesterol.total/Cholestero l in HDL [Mass ratio] 2.5 {ratio} Normal [facility] Comment on above: Result Comment: REF VALUES DESIRABLE < 3.4 HIGH RISK > 5.0 Performed By: #### L IPID #### [facility] [address] [facility] [place] [id number] Triglyceride [Mass/Vol] 71 mg/dL Normal 0 - 149 [facility] Comment on above: Result Comment: . AGE DESIRABLE BORDERLINE HIGH HIGH VERY HIGH 0 D-90 D 19 - 174 ---- ---- ---- 91 D- 9 Y 0 - 74 75 - 99 >/= 100 ---- 10-19 Y 0 - 89 90 - 129 >/= 130 ---- 20-24 Y 0 - 114 115 - 149 >/= 150 ---- >24 Y 0 - 149 150 - 199 200- 499 >/= 500 . Venipuncture immediately after or during the administration of Metamizole may lead to falsely low results. Testing should be performed immediately prior to Metamizole dosing. Performed By: #### L IPID #### [facility] [id number] [place] [id number] VITAMIN B12on 02-06-2022 Cobalamin (Vitamin B12) [Mass/Vol] 266 pg/mL Normal 211 - 911 [facility] Comment on above: Performed By: #### V TB12 #### [facility] [address] [place] [address] Comprehensive Metabolic Pane darlene 01-24-2022 Albumin [Mass/Vol] 3.2 g/dL Low 3.5-4.6 [facility] Comment on above: Performed By: #### C MP #### [facility] [address] [place] [address] ALP [Catalytic activity/Vol] 153 U/L Critically high 35 -104 [facility] Comment on above: Performed By: #### C MP #### [facility] [address] [place] [address] ALT [Catalytic activity/Vol] 65 U/L Critically high 0- 41 [facility] Comment on above: Performed By: #### C MP #### [facility] [address] [place] [address] Anion gap [Moles/Vol] 12 mmol/L Normal 9-15 [facility] Comment on above: Performed By: #### C MP #### [facility] [address] [place] [address] AST [Catalytic activity/Vol] 50 U/L Critically high 0- 40 [facility] Comment on above: Result Comment: Spec imen hemolysis has exceeded the interference as defined by Rpiti. Value may be falsely increased. Suggest recollection if clinically indicated. Performed By: #### C MP #### [facility] [address] [place] [address] Bilirubin [Mass/Vol] mg/dL Normal 0.2-0.7 [facility] Comment on above: Performed By: #### C MP #### [facility] [address] [place] [address] Calcium [Mass/Vol] 8.7 mg/dL Normal 8.5-9.9 [facility] Comment on above: Performed By: #### C MP #### [facility] [address] [place] [address] Chloride [Moles/Vol] 107 mmol/L Normal 95-107 [facility] Comment on above: Performed By: #### C MP #### [facility] [address] [place] [address] CO2 [Moles/Vol] 22 mmol/L Normal 20-31 [facility] Comment on above: Performed By: #### C MP #### [facility] [address] [place] [address] Creatinine [Mass/Vol] 0.84 mg/dL Normal 0.70-1.20 [facility] Comment on above: Performed By: #### C MP #### [facility] [address] [place] [address] GFR >60.0 Normal >60 [facility] Comment on above: Result Comment: >60 mL/min/1.73m2 EGFR, calc. for ages 18 and older using the MDRD formula (not corrected for weight), is valid for stable renal function. Performed By: #### C MP #### [facility] [address] [place] [address] GFR/1.73 sq M.predicted judy g blacks MDRD (S/P/Bld) [Vol rate/Area] mL/min/{1.73_m2} Normal >60 [facility] Comment on above: Result Comment: >60 mL/min/1.73m2 EGFR, calc. for ages 18 and older using the MDRD formula (not corrected for weight), is valid for stable renal function. Performed By: #### C MP #### [facility] [address] [place] [address] Globulin (S) [Mass/Vol] 2.6 g/dL Normal 2.3-3.5 [facility] Comment on above: Performed By: #### C MP #### [facility] [address] [place] [address] Glucose [Mass/Vol] 83 mg/dL Normal 70-99 [facility] Comment on above: Performed By: #### C MP #### [facility] [address] [place] [address] Potassium [Moles/Vol] 4.5 mmol/L Normal 3.4-4.9 [facility] Comment on above: Performed By: #### C MP #### [facility] [address] [place] [address] Protein [Mass/Vol] 5.8 g/dL Low 6.3-8.0 [facility] Comment on above: Performed By: #### C MP #### [facility] [address] [place] [address] Sodium [Moles/Vol] 141 mmol/L Normal 135-144 [facility] Comment on above: Performed By: #### C MP #### [facility] [address] [place] [address] Urea nitrogen [Mass/Vol] 26 mg/dL Critically high 6-20 [facility] Comment on above: Performed By: #### C MP #### [facility] [address] [place] [address] Acetaminophenon 01-22-2022 Acetaminophen [Mass/Vol] ug/mL Low 10-30 [facility] Comment on above: Performed By: #### A CETM #### [facility] [address] [place] [address] Acetaminophen Levelon 2021 Acetaminophen Level <5 Low 10 - 30 ug/mL [facility] Alcoholon 01-22-2022 Blood Alcohol Concentration Not indicated Normal [facility] Comment on above: Performed By: #### A LCOH #### [facility] [address] [place] [address] Ethanol [Mass/Vol] mg/dL Normal [facility] Comment on above: Performed By: #### A LCOH #### [facility] [address] [place] [address] CBC With Platelet and Differ entialon 01-22-2022 Basophils (Bld) [#/Vol] 0.1 10*3/uL Normal 0.0-0.2 [facility] Comment on above: Performed By: #### C BCWD #### [facility] [address] [place] [address] Basophils/100 WBC (Bld) 1.1 % Normal [facility] Comment on above: Performed By: #### C BCWD #### [facility] [address] [place] [address] Eosinophils (Bld) [#/Vol] 0.1 10*3/uL Normal 0.0-0.7 [facility] Comment on above: Performed By: #### C BCWD #### [facility] [address] [place] [address] Eosinophils/100 WBC (Bld) 1.4 % Normal [facility] Comment on above: Performed By: #### C BCWD #### [facility] [address] [place] [address] Erythrocyte distribution width (RBC) [Ratio] 16.5 % Critically high 11.5-14.5 [facility] Comment on above: Performed By: #### C BCWD #### [facility] [address] [place] [address] Hematocrit (Bld) [Volume fraction] 45.0 % Normal 42.0-52.0 [facility] Comment on above: Performed By: #### C BCWD #### [facility] [address] [place] [address] Hemoglobin (Bld) [Mass/Vol] 15.0 g/dL Normal 14.0-18. 0 [facility] Comment on above: Performed By: #### C BCWD #### [facility] [address] [place] [address] Lymphocytes (Bld) [#/Vol] 1.2 10*3/uL Normal 1.0-4.8 [facility] Comment on above: Performed By: #### C BCWD #### [facility] [address] [place] [address] Lymphocytes/100 WBC (Bld) 20.9 % Normal [facility] Comment on above: Performed By: #### C BCWD #### [facility] [address] [place] [address] MCH (RBC) [Entitic mass] 32.3 pg Critically high 27.0-3 1.3 [facility] Comment on above: Performed By: #### C BCWD #### [facility] [address] [place] [address] MCHC 33.3 % Normal 33.0-37.0 [facility] Comment on above: Performed By: #### C BCWD #### [facility] [address] [place] [address] MCV (RBC) [Entitic vol] 97.0 fL Normal 80.0-100.0 [facility] Comment on above: Performed By: #### C BCWD #### [facility] [address] [place] [address] Monocytes (Bld) [#/Vol] 0.9 10*3/uL Critically high 0.2-0. 8 [facility] Comment on above: Performed By: #### C BCWD #### [facility] [address] [place] [address] Monocytes/100 WBC (Bld) 16.9 % Normal [facility] Comment on above: Performed By: #### C BCWD #### [facility] [address] [place] [address] Neutrophils (Bld) [#/Vol] 3.3 10*3/uL Normal 1.4-6.5 [facility] Comment on above: Performed By: #### C BCWD #### [facility] [address] [place] [address] Neutrophils/100 WBC (Bld) 59.7 % Normal [facility] Comment on above: Performed By: #### C BCWD #### [facility] [address] [place] [address] Platelets (Bld) [#/Vol] 214 10*3/uL Normal 130-400 [facility] Comment on above: Performed By: #### C BCWD #### [facility] [address] [place] [address] RBC (Bld) [#/Vol] 4.64 10*6/uL Low 4.70-6.10 [facility] Comment on above: Performed By: #### C BCWD #### [facility] [address] [place] [address] WBC (Bld) [#/Vol] 5.6 10*3/uL Normal 4.8-10.8 [facility] Comment on above: Performed By: #### C BCWD #### [facility] [address] [place] [address] CBC with Auto Differentialon 01-22-2022 Basophils (Bld) [#/Vol] 0.1 10*3/uL 0.0 - 0.2 K /uL [facility] Basophils/100 WBC (Bld) 1.1 % B [facility] Eosinophils (Bld) [#/Vol] 0.1 10*3/uL 0.0 - 0.7 K/uL [facility] Eosinophils/100 WBC (Bld) 1.4 % [facility] Hematocrit (Bld) [Volume fraction] 45.0 % 42.0 - 52.0 % [facility] Hemoglobin (Bld) [Mass/Vol] 15.0 g/dL 14.0 - 1 8.0 g/dL [facility] Interpretation and review of laboratory results Abnormal [facility] Lymphocytes (Bld) [#/Vol] 1.2 10*3/uL 1.0 - 4.8 K/uL [facility] Lymphocytes/100 WBC (Bld) 20.9 % [facility] MCH (RBC) [Entitic mass] 32.3 pg High 27.0 - 31.3 pg [facility] MCHC (RBC) [Mass/Vol] 33.3 % 33.0 - 37.0 % [facility] MCV (RBC) [Entitic vol] 97.0 fL 80.0 - 100.0 fL [facility] Monocytes (Bld) [#/Vol] 0.9 10*3/uL High 0.2 - 0.8 K /uL [facility] Monocytes/100 WBC (Bld) 16.9 % B ON [facility] Neutrophils Absolute 3.3 K/uL 1.4 - 6.5 K/uL [facility] Neutrophils/100 WBC (Bld) 59.7 % [facility] Platelet distribution width (Bld) [Ratio] 16.5 % High 11.5 - 14.5 % [facility] Platelets (Bld) [#/Vol] 214 10*3/uL 130 - 400 K /uL [facility] RBC (Bld) [#/Vol] 4.64 10*6/uL Low [facility] WBC (Bld) [#/Vol] 5.6 10*3/uL 4.8 - 10.8 K/uL B ON [facility] CKon 01-22-2022 CK [Catalytic activity/Vol] 118 U/L 0 - 190 U/L [facility] Comprehensive Metabolic Pane darlene 01-22-2022 Albumin [Mass/Vol] 3.4 g/dL Low 3.5-4.6 [facility] Comment on above: Performed By: #### C MP #### [facility] [address] [place] [address] ALP [Catalytic activity/Vol] 144 U/L Critically high 35 -104 [facility] Comment on above: Performed By: #### C MP #### [facility] [address] [place] [address] ALT [Catalytic activity/Vol] 85 U/L Critically high 0- 41 [facility] Comment on above: Performed By: #### C MP #### [facility] [address] [place] [address] Anion gap [Moles/Vol] 8 mmol/L Low 9-15 [facility] Comment on above: Performed By: #### C MP #### [facility] [address] [place] [address] AST [Catalytic activity/Vol] 92 U/L Critically high 0- 40 [facility] Comment on above: Performed By: #### C MP #### [facility] [address] [place] [address] Bilirubin [Mass/Vol] 0.7 mg/dL Normal 0.2-0.7 [facility] Comment on above: Performed By: #### C MP #### [facility] [address] [place] [address] Calcium [Mass/Vol] 8.4 mg/dL Low 8.5-9.9 [facility] Comment on above: Performed By: #### C MP #### [facility] [address] [place] [address] Chloride [Moles/Vol] 102 mmol/L Normal 95-107 [facility] Comment on above: Performed By: #### C MP #### [facility] [address] [place] [address] CO2 [Moles/Vol] 27 mmol/L Normal 20-31 [facility] Comment on above: Performed By: #### C MP #### [facility] [address] [place] [address] Creatinine [Mass/Vol] 1.15 mg/dL Normal 0.70-1.20 [facility] Comment on above: Performed By: #### C MP #### [facility] [address] [place] [address] GFR >60.0 Normal >60 [facility] Comment on above: Result Comment: >60 mL/min/1.73m2 EGFR, calc. for ages 18 and older using the MDRD formula (not corrected for weight), is valid for stable renal function. Performed By: #### C MP #### [facility] [address] [place] [address] GFR/1.73 sq M.predicted judy g blacks MDRD (S/P/Bld) [Vol rate/Area] mL/min/{1.73_m2} Normal >60 [facility] Comment on above: Result Comment: >60 mL/min/1.73m2 EGFR, calc. for ages 18 and older using the MDRD formula (not corrected for weight), is valid for stable renal function. Performed By: #### C MP #### [facility] [address] [place] [address] Globulin (S) [Mass/Vol] 2.3 g/dL Normal 2.3-3.5 [facility] Comment on above: Performed By: #### C MP #### [facility] [address] [place] [address] Glucose [Mass/Vol] 105 mg/dL Critically high 70-99 [facility] Comment on above: Performed By: #### C MP #### [facility] [address] [place] [address] Potassium [Moles/Vol] 4.0 mmol/L Normal 3.4-4.9 [facility] Comment on above: Performed By: #### C MP #### [facility] [address] [place] [address] Protein [Mass/Vol] 5.7 g/dL Low 6.3-8.0 [facility] Comment on above: Performed By: #### C MP #### [facility] [address] [place] [address] Sodium [Moles/Vol] 137 mmol/L Normal 135-144 [facility] Comment on above: Performed By: #### C MP #### [facility] [address] [place] [address] Urea nitrogen [Mass/Vol] 31 mg/dL Critically high 6-20 [facility] Comment on above: Performed By: #### C #### [facility] [address] [place] [address] Albumin [Mass/Vol] 3.4 g/dL Low 3.5 - 4.6 g/dL ANA N [facility] ALP (Bld) [Catalytic activity/Vol] 144 U/L High 35 - 104 U/L [facility] ALT [Catalytic activity/Vol] 85 U/L High 0 - 41 U/L [facility] Anion gap [Moles/Vol] 8 mmol/L Low [facility] AST [Catalytic activity/Vol] 92 U/L High 0 - 40 U/L [facility] Bilirubin [Mass/Vol] 0.7 mg/dL 0.2 - 0.7 mg/dL [facility] Calcium [Mass/Vol] 8.4 mg/dL Low 8.5 - 9.9 mg/dL B ON [facility] Chloride [Moles/Vol] 102 mmol/L [facility] CO2 [Moles/Vol] 27 mmol/L [place] Creatinine [Mass/Vol] 1.15 mg/dL 0.70 - 1.20 mg /dL [facility] Free PSA/Total PSA [Mass fraction] 5.7 g/dL Low 6.3 - 8.0 g/dL [facility] GFR >60.0 >60 [facility] Comment on above: >60 mL/min/1.73m2 EG FR, calc. for ages 18 and older using the MDRD formula (not corrected for weight), is valid for stable renal function. GFR Non- >60.0 >60 [facility] Comment on above: >60 mL/min/1.73m2 EG FR, calc. for ages 18 and older using the MDRD formula (not corrected for weight), is valid for stable renal function. Globulin (S) [Mass/Vol] 2.3 g/dL 2.3 - 3.5 g/ dL [facility] Glucose [Mass/Vol] 105 mg/dL High 70 - 99 mg/dL [facility] Potassium [Moles/Vol] 4.0 mmol/L [facility] Sodium [Moles/Vol] 137 mmol/L [facility] Urea nitrogen (BldV) [Mass/Vol] 31 mg/dL High 6 - 20 mg/dL [facility] Creatine Kinaseon 01-22-2022 CK [Catalytic activity/Vol] 118 U/L Normal 0-190 [facility] Comment on above: Performed By: #### C PK #### [facility] [address] [place] [address] EKG 12 LeadOrdered By: Unkno wn Result on 01-22-2022 Atrial Rate 71 BPM [facility] [employer] 5 degrees [facility] P-R Interval 134 ms [facility] Q-T Interval 408 ms [facility] QRS Duration 90 ms [facility] QTc Calculation (Bazett) 443 ms [facility] R [employer] 64 degrees [facility] T [employer] 54 degrees [facility] Ventricular Rate 71 BPM [facility] EKG 12 Leadon 01-22-2022 Normal sinus rhythm Normal ECG No previous ECGs available Confirmed by Zac Adams ([id number]) on 01/22/2022 7:37:35 AM [facility] Result, Unknown Prov ider - 01/22/2022 Normal sinus rhythm Normal ECG No previous ECGs available Confirmed by Zac Adams ([id number]) on 01/22/2022 7:37:35 AM [facility] Work Phone: Ethanolon 01-22-2022 Ethanol Lvl <10 mg/dL [facility] Ethanol percent Not indicated G/dL [facility] Lipid Panelon 01-22-2022 Cholesterol [Mass/Vol] 138 mg/dL Normal 0-199 [facility] Comment on above: Result Comment: ATP III Cholesterol classification is Desirable. Performed By: #### L IPID #### [facility] [address] [place] [address] Cholesterol in HDL [Mass/Vol] 83 mg/dL Critically high 4 0-59 [facility] Comment on above: Result Comment: ATP III HDL Cholesterol Classification is high. Expected Values: Males: >55 = No Risk 35-55 = Moderate Risk <35 = High Risk Females: >65 = No Risk 45-65 = Moderate Risk <45 = High Risk NCEP Guidelines: Third Report November 2000 >59 = negative risk factor for CHD <40 = major risk factor for CHD Performed By: #### L IPID #### [facility] [address] [place] [address] Cholesterol in LDL [Mass/Vol] 46 mg/dL Normal 0-129 [facility] Comment on above: Result Comment: ATP III LDL Classification is Optimal. Performed By: #### L IPID #### [facility] [address] [place] [address] Triglyceride [Mass/Vol] 44 mg/dL Normal 0-150 [facility] Comment on above: Result Comment: ATP III Triglycerides Classification is Normal. Performed By: #### L IPID #### [facility] [address] [place] [address] Cholesterol [Mass/Vol] 138 mg/dL 0 - 199 mg/dL [employer] Comment on above: ATP III Cholesterol classification is Desirable. Cholesterol in HDL [Mass/Vol] 83 mg/dL High 40 - 5 9 mg/dL [employer] Comment on above: ATP III HDL Choleste rol Classification is high. Expected Values: Males: >55 = No Risk 35-55 = Moderate Risk <35 = High Risk Females: >65 = No Risk 45-65 = Moderate Risk <45 = High Risk NCEP Guidelines: Third Report November 2000 >59 = negative risk factor for CHD <40 = major risk factor for CHD Cholesterol in LDL [Mass/Vol] 46 mg/dL 0 - 12 9 mg/dL [employer] Comment on above: ATP III LDL Classifi cation is Optimal. Triglyceride [Mass/Vol] 44 mg/dL 0 - 150 mg/d L [facility] Comment on above: ATP III Triglyceride s Classification is Normal. No Panel Informationon 01-22 Interpretation and review of laboratory results Abnormal [facility] Salicylateon 01-22-2022 Salicylate <0.3 Low 15.0-30.0 [facility] Comment on above: Result Comment: Anti -pyretic: 3.0-10.0 mg/dL Anti-inflammatory: 15.0-30.0 mg/dL Toxic: >30.0 mg/dL Performed By: #### L IPID #### [facility] [address] [place] [address] Salicylate, Serum <0.3 Low 15.0 - 30.0 mg/dL [facility] Comment on above: Anti-pyretic: 3.0-10 .0 mg/dL Anti-inflammatory: 15.0-30.0 mg/dL Toxic: >30.0 mg/dL TSHon 01-22-2022 TSH Qn 1.010 m[IU]/L [facility] TSH w/out Reflexon TSH w/out Reflex 1.010 uIU/mL Normal 0.440-3.86 [facility] Comment on above: Performed By: #### T SH #### [facility] [address] [place] [address] UR Drugs of Abuse Panelon Drug Screen Comment see below Normal [facility] Comment on above: Result Comment: This method is a screening test to detect only these drug classes as part of a medical workup. Confirmatory testing by another method should be ordered if clinically indicated. Performed By: #### U DRGS #### [facility] [address] [place] [address] UR Amphetamines Screen Negative Normal Negative < [facility] Comment on above: Performed By: #### U DRGS #### [facility] [address] [place] [address] UR Barbiturates Screen Negative Normal Negative < [facility] Comment on above: Performed By: #### U DRGS #### [facility] [address] [place] [address] UR Benzo Screen Negative Normal Negative < [facility] Comment on above: Performed By: #### U DRGS #### [facility] [address] [place] [address] UR Cannabinoids Screen Negative Normal Negative < [facility] Comment on above: Performed By: #### U DRGS #### [facility] [address] [place] [address] UR Cocaine Screen Negative Normal Negative < [facility] Comment on above: Performed By: #### U DRGS #### [facility] [address] [place] [address] UR Fentanyl Screen Negative Normal Negative < [facility] Comment on above: Performed By: #### U DRGS #### [facility] [address] [place] [address] UR Methadone Screen Negative Normal Negative < [facility] Comment on above: Performed By: #### U DRGS #### [facility] [address] [place] [address] UR Opiates Screen Negative Normal Negative < [facility] Comment on above: Performed By: #### U DRGS #### [facility] [address] [place] [address] UR Oxycodone Screen Negative Normal Negative < [facility] Comment on above: Performed By: #### U DRGS #### [facility] [address] [place] [address] UR PCP Screen Negative Normal Negative < [facility] Comment on above: Performed By: #### U DRGS #### [facility] [address] [place] [address] UR Propoxyphene Screen Negative Normal Negative < [facility] Comment on above: Performed By: #### U DRGS #### [facility] [address] [place] [address] Urinalysis with Reflex to Cu ltureon 01-22-2022 Bilirubin Urine Negative Negative [facility] Blood, Urine Negative Negative [facility] Clarity, UA Clear Clear [facility] Color, UA Yellow Straw/Yellow [facility] Glucose, Ur Negative Negative mg/dL [facility] Interpretation and review of laboratory results Abnormal [facility] Ketones Ql (U) TRACE Abnormal Negative mg/dL [facility] Leukocyte esterase Test strip Ql (U) Negative Negative [facility] Nitrite, Urine Negative Negative [facility] pH, UA 7.0 [facility] Protein, UA Negative Negative mg/dL [facility] Specific [place], UA 1.026 [facility] Urine Reflex to Culture Not Indicated [facility] Urobilinogen, Urine 1.0 <2.0 E.U./dL [facility] Urinalysis, reflex to cultur jasmeet 01-22-2022 Bilirubin Ql (U) Negative Normal Negative [facility] Comment on above: Performed By: #### U AR #### [facility] [address] [place] [address] Clarity (U) Clear Normal [facility] Comment on above: Performed By: #### U AR #### [facility] [address] [place] [address] Color (U) Yellow Normal Straw/[place] [facility] Comment on above: Performed By: #### U AR #### [facility] [address] [place] [address] Glucose Ql (U) Negative Normal Negative [facility] Comment on above: Performed By: #### U AR #### [facility] [address] [place] [address] Hemoglobin Ql (U) Negative Normal Negative [facility] Comment on above: Performed By: #### U AR #### [facility] [address] [place] [address] Ketones Ql (U) TRACE Abnormal Negative [facility] Comment on above: Performed By: #### U AR #### [facility] [address] [place] [address] Leukocyte esterase Test stri p Ql (U) Negative Normal Negative [facility] Comment on above: Performed By: #### U AR #### [facility] [address] [place] [address] Nitrite Ql (U) Negative Normal Negative [facility] Comment on above: Performed By: #### U AR #### [facility] [address] [place] [address] pH (U) 7.0 [pH] Normal 5.0-9.0 [facility] Comment on above: Performed By: #### U AR #### [facility] [address] [place] [address] Protein Ql (U) Negative Normal Negative [facility] Comment on above: Performed By: #### U AR #### [facility] [address] [place] [address] Specific gravity (U) [Rel density] 1.026 Normal 1.005-1.03 [facility] Comment on above: Performed By: #### U AR #### [facility] [address] [place] [address] Urine Reflexed to Culture Not Indicated Normal [facility] Comment on above: Performed By: #### U AR #### [facility] [address] [place] [address] Urobilinogen Qn (U) 1.0 {Amisha'U}/dL Normal < 2.0 [facility] Comment on above: Performed By: #### U AR #### [facility] [address] [place] [address] Urine Drug Screenon 01-23-20 22 Amphetamine Screen, Urine Negative Negative < 1000 ng/mL [facility] Barbiturate Screen, Ur Negative Negative < 20 0 ng/mL [facility] Benzodiazepine Screen, Urine Negative Negativ e < 200 ng/mL [facility] Cannabinoid Scrn, Ur Negative Negative < 50 n g/mL [facility] Cocaine Metabolite Screen, Urine Negative Negative < 300 ng/mL [facility] Drug Screen Comment: see below [facility] Comment on above: This method is a scr eening test to detect only these drug classes as part of a medical workup. Confirmatory testing by another method should be ordered if clinically indicated. FENTANYL SCREEN, URINE Negative Negative < 50 ng/mL [facility] Methadone Screen, Urine Negative Negative <30 0 ng/mL [facility] Opiate Scrn, Ur Negative Negative < 300 ng/mL [facility] Oxycodone Urine Negative Negative <100 ng/mL [facility] PCP Screen, Urine Negative Negative < 25 ng/m L [facility] Propoxyphene Scrn, Ur Negative Negative <300 ng/mL [facility] COVID-19on 01-21-2022 SARS-CoV-2 (COVID-19) RNA NESSA+probe Ql (Unsp spec) Not detected Normal Not Detect [facility] Comment on above: Result Comment: Jayna kirkpatrick NAAT: Negative results should be treated as presumptive and, if inconsistent with clinical signs and symptoms or necessary for patient management, should be tested with an alternative molecular assay. Negative results do not preclude SARS-CoV-2 infection and should not be used as the sole basis for patient management decisions. This test has been authorized by the FDA under an Emergency Use Authorization (EUA) for use by authorized laboratories. Fact sheet for Healthcare Providers: https://www.fda.gov/media/446113/download Fact sheet for Patients: https://www.fda.gov/media/668554/download METHODOLOGY: Isothermal Nucleic Acid Amplification Performed By: #### C OVRG #### [facility] [address] [place] [address] COVID-19, Rapidon 01-21-2022 SARS-CoV-2 (COVID-19) RNA NESSA+probe Ql (Unsp spec) Not detected Not Detected [facility] Comment on above: Rapid NAAT: Negative results should be treated as presumptive and, if inconsistent with clinical signs and symptoms or necessary for patient management, should be tested with an alternative molecular assay. Negative results do not preclude SARS-CoV-2 infection and should not be used as the sole basis for patient management decisions. This test has been authorized by the FDA under an Emergency Use Authorization (EUA) for use by authorized laboratories. Fact sheet for Healthcare Providers: https://www.fda.gov/media/481408/download Fact sheet for Patients: https://www.fda.gov/media/092426/download METHODOLOGY: Isothermal Nucleic Acid Amplification [facility] B12/Folate Panelon Cobalamin (Vitamin B12) [Mass/Vol] 371 pg/mL Normal 232-1245 [facility] Folic Acid 19.5 ng/mL Normal >4.8 [facility] Comment on above: Result Comment: [facility] [employer] [address] [place] [address] Vitamin D 25 OHon 07-11-2021 Vitamin D 25 [place] 21.2 ng/mL Low 30.0-100.0 [facility] Comment on above: Result Comment: Reference Range: Vitamin D status Range Deficiency <20 ng/mL Mild Deficiency 20-30 ng/mL Sufficiency 30-100 ng/mL Toxicity >100 ng/mL [place] [address] [place] [address] Lipid Panel Fastingon 2020 Cholesterol [Mass/Vol] 140 mg/dL Normal 0-199 [facility] Comment on above: Result Comment: ATP III Cholesterol classification is Desirable. Performed By: #### L IPDF #### [facility] [address] [place] [address] HDL Cholesterol Fasting 44 mg/dL Normal 40-59 M [facility] Comment on above: Result Comment: ATP III HDL Cholesterol Classification is Desirable. Expected Values: Males: >55 = No Risk 35-55 = Moderate Risk <35 = High Risk Females: >65 = No Risk 45-65 = Moderate Risk <45 = High Risk NCEP Guidelines: Third Report November 2000 >59 = negative risk factor for CHD <40 = major risk factor for CHD Performed By: #### L IPDF #### [facility] [address] [place] [address] LDL Cholesterol (Calculated) Fasting 84 mg/dL Normal 0-129 [facility] Comment on above: Result Comment: ATP III LDL Classification is Optimal. Performed By: #### L IPDF #### [facility] [address] [place] [address] Triglycerides Fasting 59 mg/dL Normal 0-150 [facility] Comment on above: Result Comment: ATP III Triglycerides Classification is Normal. Performed By: #### L IPDF #### [facility] [address] [facility] [address] TSH w/out Reflexon TSH w/out Reflex 0.300 uIU/mL Low 0.440-3.86 [facility] Comment on above: Performed By: #### T SH #### [facility] [address] [facility] [address] Acetaminophen Levelon 2020 Acetaminophen Level <5 Low 10 - 30 ug/mL [facility] CBC Auto Differentialon 06-13 Basophils (Bld) [#/Vol] 0.1 10*3/uL 0.0 - 0.2 K /uL [facility] Basophils/100 WBC (Bld) 0.6 % [facility] Eosinophils (Bld) [#/Vol] 0.0 10*3/uL 0.0 - 0.7 K/uL [facility] Eosinophils/100 WBC (Bld) 0.3 % [facility] Hematocrit (Bld) [Volume fraction] 46.5 % 4 2.0 - 52.0 % [facility] Hemoglobin.gastrointestinal spec 1 Ql (Stl) 15.6 g/dL 14.0 - 18.0 g/dL [facility] Interpretation and review of laboratory results Abnormal [facility] Lymphocytes (Bld) [#/Vol] 1.4 10*3/uL 1.0 - 4.8 K/uL [facility] Lymphocytes/100 WBC (Bld) 14.7 % [facility] MCH (RBC) [Entitic mass] 30.9 pg 27.0 - 31.3 pg [facility] MCHC (RBC) [Mass/Vol] 33.5 % 33.0 - 37.0 % [facility] MCV (RBC) [Entitic vol] 92.3 fL 80.0 - 100.0 fL [facility] Monocytes (Bld) [#/Vol] 0.9 10*3/uL High 0.2 - 0.8 K /uL [facility] Monocytes/100 WBC (Bld) 9.7 % [facility] Neutrophils Absolute 7.0 K/uL High 1.4 - 6.5 K/uL [facility] Neutrophils/100 WBC (Bld) 74.7 % [facility] Platelet distribution width (Bld) [Ratio] 13.2 % 11.5 - 14.5 % [facility] Platelets (Bld) [#/Vol] 399 10*3/uL 130 - 400 K /uL [facility] RBC (Bld) [#/Vol] 5.04 10*6/uL [facility] WBC (Bld) [#/Vol] 9.4 10*3/uL 4.8 - 10.8 K/uL [facility] CKon 07-08-2021 CK [Catalytic activity/Vol] 109 U/L 0 - 190 U/L [facility] COVID-19, Rapidon 07-08-2021 SARS-CoV-2 (COVID-19) RNA NA A+probe Ql (Unsp spec) Not detected Not Detected [facility] Comment on above: Rapid NAAT: Negative results should be treated as presumptive and, if inconsistent with clinical signs and symptoms or necessary for patient management, should be tested with an alternative molecular assay. Negative results do not preclude SARS-CoV-2 infection and should not be used as the sole basis for patient management decisions. This test has been authorized by the FDA under an Emergency Use Authorization (EUA) for use by authorized laboratories. Fact sheet for Healthcare Providers: https://www.fda.gov/media/826759/download Fact sheet for Patients: https://www.fda.gov/media/541423/download METHODOLOGY: Isothermal Nucleic Acid Amplification [facility] Comprehensive Metabolic Pane darlene 07-08-2021 Albumin [Mass/Vol] 4 g/dL 3.5 - 4.6 g/dL [facility] ALP (Bld) [Catalytic activity/Vol] 103 U/L 3 5 - 104 U/L [facility] ALT [Catalytic activity/Vol] 26 U/L 0 - 41 U/L [facility] Anion gap [Moles/Vol] 15 mmol/L [facility] AST [Catalytic activity/Vol] 26 U/L 0 - 40 U/L [facility] Comment on above: Specimen hemolysis h as exceeded the interference as defined by Priti. Value may be falsely increased. Suggest recollection if clinically indicated. Bilirubin [Mass/Vol] 0.7 mg/dL 0.2 - 0.7 mg/dL [facility] Calcium [Mass/Vol] 9.1 mg/dL 8.5 - 9.9 mg/dL [facility] Chloride [Moles/Vol] 99 mmol/L [facility] CO2 [Moles/Vol] 22 mmol/L [facility] lt Creatinine [Mass/Vol] 0.79 mg/dL 0.70 - 1.20 mg /dL [facility] Free PSA/Total PSA [Mass fraction] 7.3 g/dL 6 .3 - 8.0 g/dL [facility] GFR >60.0 >60 [facility] Comment on above: >60 mL/min/1.73m2 EG FR, calc. for ages 18 and older using the MDRD formula (not corrected for weight), is valid for stable renal function. GFR Non- >60.0 >60 [facility] Comment on above: >60 mL/min/1.73m2 EG FR, calc. for ages 18 and older using the MDRD formula (not corrected for weight), is valid for stable renal function. Globulin (S) [Mass/Vol] 3.3 g/dL 2.3 - 3.5 g/ dL [facility] [employer] Glucose [Mass/Vol] 89 mg/dL 70 - 99 mg/dL [facility] Potassium [Moles/Vol] 3.9 mmol/L [facility] Sodium [Moles/Vol] 136 mmol/L [facility] Urea nitrogen (BldV) [Mass/Vol] 12 mg/dL 6 - 20 mg/dL [facility] Ethanolon 07-08-2021 Ethanol Lvl <10 mg/dL [facility] Ethanol percent Not indicated G/dL [facility] No Panel Informationon 07-08 Interpretation and review of laboratory results Abnormal [facility] Salicylateon 07-08-2021 Salicylate, Serum <0.3 Low 15.0 - 30.0 mg/dL [facility] Comment on above: Anti-pyretic: 3.0-10 .0 mg/dL Anti-inflammatory: 15.0-30.0 mg/dL Toxic: >30.0 mg/dL TSH without Reflexon 021 Interpretation and review of laboratory results Abnormal [facility] TSH Qn 0.283 m[IU]/L [facility] U[facility] Drug Screenon 07-08-20 Amphetamine Screen, Urine Positive Abnormal Negative < 1000 ng/mL [facility] [employer] Comment on above: High concentrations of ephedrine/pseudoephedrine or phenylpropanolamine may cause false positive results for amphetamine. Therefore, confirmatory testing for amphetamine should be considered if clinically indicated. Barbiturate Screen, Ur Negative Negative < 20 0 ng/mL [employer] Benzodiazepine Screen, Urine Negative Negativ e < 200 ng/mL [employer] Cannabinoid Scrn, Ur Negative Negative < 50 n g/mL [facility] Cocaine Metabolite Screen, Urine Negative Neg ative < 300 ng/mL [employer] Drug Screen Comment: see below [facility] Comment on above: This method is a scr eening test to detect only these drug classes as part of a medical workup. Confirmatory testing by another method should be ordered if clinically indicated. Interpretation and review of laboratory results Abnormal [facility] Methadone Screen, Urine Negative Negative <30 0 ng/mL [employer] Opiate Scrn, Ur Negative Negative < 300 ng/mL [facility] Oxycodone Urine Negative Negative <100 ng/mL [facility] PCP Screen, Urine Negative Negative < 25 ng/m L [facility] Propoxyphene Scrn, Ur Negative Negative <300 ng/mL [facility] Urine Reflex to Cultureon Bilirubin Urine Negative Negative [facility] Blood, Urine Negative Negative [employer] Clarity, UA Clear Clear [facility] Color, UA Yellow Straw/Yellow [facility] Glucose, Ur Negative Negative mg/dL [facility] Ketones Ql (U) Negative Negative mg/dL [facility] [employer] Leukocyte esterase Test strip Ql (U) Negative Negative [facility] Nitrite, Urine Negative Negative [facility] pH, UA 6.5 [facility] Protein, UA Negative Negative mg/dL [facility] Hea lth Specific [place], UA 1.008 [facility] Urine Reflex to Culture Not Indicated [facility] Urobilinogen, Urine 0.2 <2.0 E.U./dL [facility] CBC Auto Differentialon 06-13 Basophils (Bld) [#/Vol] 0.0 10*3/uL 0.0 - 0.2 K /uL [facility] Basophils/100 WBC (Bld) 0.2 % [facility] Eosinophils (Bld) [#/Vol] 0.2 10*3/uL 0.0 - 0.7 K/uL [facility] Eosinophils/100 WBC (Bld) 2 % [facility] Hematocrit (Bld) [Volume fraction] 47.1 % 4 2.0 - 52.0 % [facility] Hemoglobin.gastrointestinal spec 1 Ql (Stl) 15.6 g/dL 14.0 - 18.0 g/dL [facility] Interpretation and review of laboratory results Abnormal [facility] Lymphocytes (Bld) [#/Vol] 1.3 10*3/uL 1.0 - 4.8 K/uL [facility] Lymphocytes/100 WBC (Bld) 14.8 % [facility] MCH (RBC) [Entitic mass] 30.6 pg 27.0 - 31.3 pg [facility] MCHC (RBC) [Mass/Vol] 33.1 % 33.0 - 37.0 % [facility] MCV (RBC) [Entitic vol] 92.4 fL 80.0 - 100.0 fL [facility] Monocytes (Bld) [#/Vol] 1.2 10*3/uL High 0.2 - 0.8 K /uL [facility] Monocytes/100 WBC (Bld) 13.9 % [facility] Neutrophils Absolute 5.9 K/uL 1.4 - 6.5 K/uL [facility] Neutrophils/100 WBC (Bld) 69.1 % [facility] Platelet distribution width (Bld) [Ratio] 13.5 % 11.5 - 14.5 % [facility] Platelets (Bld) [#/Vol] 257 10*3/uL 130 - 400 K /uL [facility] RBC (Bld) [#/Vol] 5.11 10*6/uL [facility] WBC (Bld) [#/Vol] 8.5 10*3/uL 4.8 - 10.8 K/uL [facility] Comprehensive Metabolic Pane darlene 07-01-2021 Albumin [Mass/Vol] 3.8 g/dL 3.5 - 4.6 g/dL [facility] ALP (Bld) [Catalytic activity/Vol] 94 U/L 3 5 - 104 U/L [facility] ALT [Catalytic activity/Vol] 43 U/L High 0 - 41 U/L [facility] Anion gap [Moles/Vol] 11 mmol/L [facility] AST [Catalytic activity/Vol] 36 U/L 0 - 40 U/L [facility] Bilirubin [Mass/Vol] 0.4 mg/dL 0.2 - 0.7 mg/dL [facility] Calcium [Mass/Vol] 8.9 mg/dL 8.5 - 9.9 mg/dL [facility] Chloride [Moles/Vol] 105 mmol/L [facility] CO2 [Moles/Vol] 24 mmol/L [facility] Creatinine [Mass/Vol] 1.04 mg/dL 0.70 - 1.20 mg /dL [facility] Free PSA/Total PSA [Mass fraction] 6.6 g/dL 6 .3 - 8.0 g/dL [facility] GFR >60.0 >60 [facility] Comment on above: >60 mL/min/1.73m2 EG FR, calc. for ages 18 and older using the MDRD formula (not corrected for weight), is valid for stable renal function. GFR Non- >60.0 >60 [facility] Comment on above: >60 mL/min/1.73m2 EG FR, calc. for ages 18 and older using the MDRD formula (not corrected for weight), is valid for stable renal function. Globulin (S) [Mass/Vol] 2.8 g/dL 2.3 - 3.5 g/ dL [facility] Glucose [Mass/Vol] 88 mg/dL 70 - 99 mg/dL [facility] Interpretation and review of laboratory results Abnormal [facility] Potassium [Moles/Vol] 4.3 mmol/L [facility] Sodium [Moles/Vol] 140 mmol/L [facility] Urea nitrogen (BldV) [Mass/Vol] 18 mg/dL 6 - 20 mg/dL [facility] CBC Auto Differentialon 06-12 Basophils (Bld) [#/Vol] 0.0 10*3/uL 0.0 - 0.2 K /uL [facility] Basophils/100 WBC (Bld) 0.2 % [facility] Eosinophils (Bld) [#/Vol] 0.1 10*3/uL 0.0 - 0.7 K/uL [facility] Eosinophils/100 WBC (Bld) 1.7 % [facility] Hematocrit (Bld) [Volume fraction] 47.7 % 4 2.0 - 52.0 % [facility] Hemoglobin.gastrointestinal spec 1 Ql (Stl) 15.6 g/dL 14.0 - 18.0 g/dL [facility] Interpretation and review of laboratory results Abnormal [facility] Lymphocytes (Bld) [#/Vol] 1.2 10*3/uL 1.0 - 4.8 K/uL [facility] Lymphocytes/100 WBC (Bld) 17.8 % [facility] MCH (RBC) [Entitic mass] 30.6 pg 27.0 - 31.3 pg [facility] MCHC (RBC) [Mass/Vol] 32.7 % Low 33.0 - 37.0 % [facility] MCV (RBC) [Entitic vol] 93.6 fL 80.0 - 100.0 fL [facility] Monocytes (Bld) [#/Vol] 1.3 10*3/uL High 0.2 - 0.8 K /uL [facility] Monocytes/100 WBC (Bld) 19.1 % [facility] Neutrophils Absolute 4.2 K/uL 1.4 - 6.5 K/uL [facility] Neutrophils/100 WBC (Bld) 61.2 % [facility] Platelet distribution width (Bld) [Ratio] 13.4 % 11.5 - 14.5 % [facility] Platelets (Bld) [#/Vol] 230 10*3/uL 130 - 400 K /uL [facility] RBC (Bld) [#/Vol] 5.09 10*6/uL [facility] WBC (Bld) [#/Vol] 6.9 10*3/uL 4.8 - 10.8 K/uL [facility] Comprehensive Metabolic Pane darlene 06-30-2021 Albumin [Mass/Vol] 3.9 g/dL 3.5 - 4.6 g/dL [facility] ALP (Bld) [Catalytic activity/Vol] 95 U/L 3 5 - 104 U/L [facility] ALT [Catalytic activity/Vol] 41 U/L 0 - 41 U/L [facility] Anion gap [Moles/Vol] 11 mmol/L [facility] AST [Catalytic activity/Vol] 32 U/L 0 - 40 U/L [facility] Bilirubin [Mass/Vol] 0.4 mg/dL 0.2 - 0.7 mg/dL [facility] Calcium [Mass/Vol] 9.1 mg/dL 8.5 - 9.9 mg/dL [facility] Chloride [Moles/Vol] 103 mmol/L [facility] CO2 [Moles/Vol] 26 mmol/L [facility] lt Creatinine [Mass/Vol] 1.29 mg/dL High 0.70 - 1.20 mg /dL [facility] Free PSA/Total PSA [Mass fraction] 6.6 g/dL 6 .3 - 8.0 g/dL [facility] GFR >60.0 >60 [facility] Comment on above: >60 mL/min/1.73m2 EG FR, calc. for ages 18 and older using the MDRD formula (not corrected for weight), is valid for stable renal function. GFR Non- 59.2 Low >60 [facility] Comment on above: >60 mL/min/1.73m2 EG FR, calc. for ages 18 and older using the MDRD formula (not corrected for weight), is valid for stable renal function. Globulin (S) [Mass/Vol] 2.7 g/dL 2.3 - 3.5 g/ dL [facility] Glucose [Mass/Vol] 95 mg/dL 70 - 99 mg/dL [facility] Interpretation and review of laboratory results Abnormal [facility] Potassium [Moles/Vol] 4.4 mmol/L [facility] Sodium [Moles/Vol] 140 mmol/L [facility] Urea nitrogen (BldV) [Mass/Vol] 20 mg/dL 6 - 20 mg/dL [facility] US RETROPERITONEAL LIMITEDon 06-30-2021 Normal sonographic appearance of the kidneys. [facility] RADIOLOG Y EXAMINATION: RENAL ULTRASOUND HISTORY: Acute kidney injury. Delusion. Covid positive. TECHNIQUE: Sonography of the kidneys was performed. Images were obtained and stored in a permanent archive. COMPARISON: Correlation with CT of the lumbar spine from 01/12/2011. No prior dedicated renal imaging available. RESULT: Right Kidney: -Renal length: 10.7 cm -Parenchyma: Normal parenchymal echogenicity. Normal parenchymal thickness of 1.0 cm -Collecting system: No hydronephrosis. -Calculus: No echogenic, shadowing calculus. -Lesion: None. Left Kidney: -Renal length: 10.8 cm -Parenchyma: Normal parenchymal echogenicity. Normal parenchymal thickness of 1.2 cm. -Collecting system: No hydronephrosis. -Calculus: No echogenic, shadowing calculus. -Lesion: None. Bladder: Not evaluated[facility] - [facility] EXAMINATION: RENAL ULTRASOUND HISTORY: Acute kidney injury. Delusion. Covid positive. TECHNIQUE: Sonography of the kidneys was performed. Images were obtained and stored in a permanent archive. COMPARISON: Correlation with CT of the lumbar spine from 01/12/2011. No prior dedicated renal imaging available. RESULT: Right Kidney: -Renal length: 10.7 cm -Parenchyma: Normal parenchymal echogenicity. Normal parenchymal thickness of 1.0 cm -Collecting system: No hydronephrosis. -Calculus: No echogenic, shadowing calculus. -Lesion: None. Left Kidney: -Renal length: 10.8 cm -Parenchyma: Normal parenchymal echogenicity. Normal parenchymal thickness of 1.2 cm. -Collecting system: No hydronephrosis. -Calculus: No echogenic, shadowing calculus. -Lesion: None. Bladder: Not evaluated. IMPRESSION: Normal sonographic appearance of the kidneys. [employer] Phone: Radiology Study observation (narrative) [employer] Phone: US RETROPERITONEAL LIMITEDOr dered By: Reynaldo Samuels on 06-30-2021 [employer] Phone: CBC Auto Differentialon 06-12 Basophils (Bld) [#/Vol] 0.1 10*3/uL 0.0 - 0.2 K /uL [facility] Basophils/100 WBC (Bld) 1.7 % [facility] Eosinophils (Bld) [#/Vol] 0.2 10*3/uL 0.0 - 0.7 K/uL [facility] Eosinophils/100 WBC (Bld) 3.6 % [facility] Hematocrit (Bld) [Volume fraction] 44.3 % 4 2.0 - 52.0 % [facility] Hemoglobin.gastrointestinal spec 1 Ql (Stl) 15.0 g/dL 14.0 - 18.0 g/dL [facility] Interpretation and review of laboratory results Abnormal [facility] Lymphocytes (Bld) [#/Vol] 1.3 10*3/uL 1.0 - 4.8 K/uL [facility] Lymphocytes/100 WBC (Bld) 21.0 % [facility] MCH (RBC) [Entitic mass] 30.8 pg 27.0 - 31.3 pg [facility] MCHC (RBC) [Mass/Vol] 33.8 % 33.0 - 37.0 % [facility] MCV (RBC) [Entitic vol] 91.2 fL 80.0 - 100.0 fL [facility] Monocytes (Bld) [#/Vol] 1.1 10*3/uL High 0.2 - 0.8 K /uL [facility] Monocytes/100 WBC (Bld) 17.5 % [facility] Neutrophils Absolute 3.5 K/uL 1.4 - 6.5 K/uL [facility] Neutrophils/100 WBC (Bld) 56.2 % [facility] Platelet distribution width (Bld) [Ratio] 13.3 % 11.5 - 14.5 % [facility] Platelets (Bld) [#/Vol] 228 10*3/uL 130 - 400 K /uL [facility] RBC (Bld) [#/Vol] 4.86 10*6/uL [facility] WBC (Bld) [#/Vol] 6.2 10*3/uL 4.8 - 10.8 K/uL [facility] Comprehensive Metabolic Pane darlene 06-29-2021 Albumin [Mass/Vol] 3.8 g/dL 3.5 - 4.6 g/dL [facility] ALP (Bld) [Catalytic activity/Vol] 105 U/L High 3 5 - 104 U/L [facility] ALT [Catalytic activity/Vol] 40 U/L 0 - 41 U/L [facility] AST [Catalytic activity/Vol] 28 U/L 0 - 40 U/L [facility] Calcium [Mass/Vol] 8.6 mg/dL 8.5 - 9.9 mg/dL [facility] Chloride [Moles/Vol] 104 mmol/L [facility] CO2 [Moles/Vol] 20 mmol/L [facility] Creatinine [Mass/Vol] 1.42 mg/dL High 0.70 - 1.20 mg /dL [facility] Free PSA/Total PSA [Mass fraction] 6.3 g/dL 6 .3 - 8.0 g/dL [facility] GFR Non- 53 Low >60 [facility] Comment on above: >60 mL/min/1.73m2 EG FR, calc. for ages 18 and older using the MDRD formula (not corrected for weight), is valid for stable renal function. Globulin (S) [Mass/Vol] 2.5 g/dL 2.3 - 3.5 g/ dL [facility] Glucose [Mass/Vol] 108 mg/dL High 70 - 99 mg/dL [facility] Potassium [Moles/Vol] 4.0 mmol/L [facility] Sodium [Moles/Vol] 139 mmol/L [facility] Comprehensive Metabolic Pane l w/ Reflex to MGon 06-29-2021 Albumin [Mass/Vol] 4 g/dL 3.5 - 4.6 g/dL [facility] ALP (Bld) [Catalytic activity/Vol] 108 U/L High 3 5 - 104 U/L [facility] ALT [Catalytic activity/Vol] 41 U/L 0 - 41 U/L [facility] AST [Catalytic activity/Vol] 29 U/L 0 - 40 U/L [facility] Calcium [Mass/Vol] 8.8 mg/dL 8.5 - 9.9 mg/dL [facility] Chloride [Moles/Vol] 106 mmol/L [facility] CO2 [Moles/Vol] 21 mmol/L [facility] Creatinine [Mass/Vol] 1.43 mg/dL High 0.70 - 1.20 mg /dL [facility] Free PSA/Total PSA [Mass fraction] 6.4 g/dL 6 .3 - 8.0 g/dL [facility] GFR Non- 52.5 Low >60 [facility] Comment on above: >60 mL/min/1.73m2 EG FR, calc. for ages 18 and older using the MDRD formula (not corrected for weight), is valid for stable renal function. Globulin (S) [Mass/Vol] 2.4 g/dL 2.3 - 3.5 g/ dL [facility] Glucose [Mass/Vol] 109 mg/dL High 70 - 99 mg/dL [facility] Potassium reflex Magnesium 4.0 [facility] Sodium [Moles/Vol] 142 mmol/L [facility] Laboratory - Chemistry and C hemistry - challengeon 06-29-2021 Anion gap [Moles/Vol] 15 mmol/L [facility] Bilirubin [Mass/Vol] 0.3 mg/dL 0.2 - 0.7 mg/dL [facility] Urea nitrogen (BldV) [Mass/Vol] 22 mg/dL High 6 - 20 mg/dL [facility] No Panel Informationon 06-29 GFR >60.0 >60 [facility] Comment on above: >60 mL/min/1.73m2 EG FR, calc. for ages 18 and older using the MDRD formula (not corrected for weight), is valid for stable renal function. Interpretation and review of laboratory results Abnormal [facility] Acetaminophen Levelon 2020 Acetaminophen Level <5 Low 10 - 30 ug/mL [facility] CBC Auto Differentialon 06-12 Basophils (Bld) [#/Vol] 0.0 10*3/uL 0.0 - 0.2 K /uL [facility] Basophils/100 WBC (Bld) 0.3 % [facility] Eosinophils (Bld) [#/Vol] 0.0 10*3/uL 0.0 - 0.7 K/uL [facility] Eosinophils/100 WBC (Bld) 0.2 % [facility] Hematocrit (Bld) [Volume fraction] 48.6 % 4 2.0 - 52.0 % [facility] Hemoglobin.gastrointestinal spec 1 Ql (Stl) 16.6 g/dL 14.0 - 18.0 g/dL [facility] Interpretation and review of laboratory results Abnormal [facility] Lymphocytes (Bld) [#/Vol] 0.9 10*3/uL Low 1.0 - 4.8 K/uL [facility] Lymphocytes/100 WBC (Bld) 8.7 % [facility] MCH (RBC) [Entitic mass] 31.2 pg 27.0 - 31.3 pg [facility] MCHC (RBC) [Mass/Vol] 34.1 % 33.0 - 37.0 % [facility] MCV (RBC) [Entitic vol] 91.5 fL 80.0 - 100.0 fL [facility] Monocytes (Bld) [#/Vol] 1.3 10*3/uL High 0.2 - 0.8 K /uL [facility] Monocytes/100 WBC (Bld) 12.3 % [facility] Neutrophils Absolute 8.5 K/uL High 1.4 - 6.5 K/uL [facility] Neutrophils/100 WBC (Bld) 78.5 % [facility] Platelet distribution width (Bld) [Ratio] 13.1 % 11.5 - 14.5 % [facility] Platelets (Bld) [#/Vol] 310 10*3/uL 130 - 400 K /uL [facility] RBC (Bld) [#/Vol] 5.31 10*6/uL [facility] WBC (Bld) [#/Vol] 10.8 10*3/uL 4.8 - 10.8 K/uL [facility] CKon 06-28-2021 CK [Catalytic activity/Vol] 156 U/L 0 - 190 U/L [facility] COVID-19, Rapidon 06-28-2021 Interpretation and review of laboratory results Abnormal [facility] SARS-CoV-2 (COVID-19) RNA NA A+probe Ql (Unsp spec) Detected Abnormal Not Detected [facility] Comment on above: Rapid NAAT: Negative results should be treated as presumptive and, if inconsistent with clinical signs and symptoms or necessary for patient management, should be tested with an alternative molecular assay. Negative results do not preclude SARS-CoV-2 infection and should not be used as the sole basis for patient management decisions. This test has been authorized by the FDA under an Emergency Use Authorization (EUA) for use by authorized laboratories. Fact sheet for Healthcare Providers: https://www.fda.gov/media/109405/download Fact sheet for Patients: https://www.fda.gov/media/107674/download METHODOLOGY: Isothermal Nucleic Acid Amplification CALL Rasheeda MORALES tel. [phone], [facility] Comprehensive Metabolic Pane darlene 06-28-2021 Albumin [Mass/Vol] 4.6 g/dL 3.5 - 4.6 g/dL [facility] ALP (Bld) [Catalytic activity/Vol] 114 U/L High 3 5 - 104 U/L [facility] ALT [Catalytic activity/Vol] 54 U/L High 0 - 41 U/L [facility] Anion gap [Moles/Vol] 11 mmol/L [facility] AST [Catalytic activity/Vol] 40 U/L 0 - 40 U/L [facility] Bilirubin [Mass/Vol] 0.4 mg/dL 0.2 - 0.7 mg/dL [facility] Calcium [Mass/Vol] 9.7 mg/dL 8.5 - 9.9 mg/dL [facility] Chloride [Moles/Vol] 100 mmol/L [facility] CO2 [Moles/Vol] 28 mmol/L [facility] Creatinine [Mass/Vol] 1.13 mg/dL 0.70 - 1.20 mg /dL [facility] Free PSA/Total PSA [Mass fraction] 7.5 g/dL 6 .3 - 8.0 g/dL [facility] GFR >60.0 >60 [facility] Comment on above: >60 mL/min/1.73m2 EG FR, calc. for ages 18 and older using the MDRD formula (not corrected for weight), is valid for stable renal function. GFR Non- >60.0 >60 [facility] Comment on above: >60 mL/min/1.73m2 EG FR, calc. for ages 18 and older using the MDRD formula (not corrected for weight), is valid for stable renal function. Globulin (S) [Mass/Vol] 2.9 g/dL 2.3 - 3.5 g/ dL [facility] Glucose [Mass/Vol] 73 mg/dL 70 - 99 mg/dL [facility] Potassium [Moles/Vol] 5.3 mmol/L High [facility] Sodium [Moles/Vol] 139 mmol/L [facility] Urea nitrogen (BldV) [Mass/Vol] 19 mg/dL 6 - 20 mg/dL [facility] Ethanolon 06-28-2021 Ethanol Lvl <10 mg/dL [facility] Ethanol percent Not indicated G/dL [facility] Lipid Panelon 06-28-2021 Cholesterol [Mass/Vol] 151 mg/dL 0 - 199 mg/dL [facility] Comment on above: ATP III Cholesterol classification is Desirable. Cholesterol in HDL [Mass/Vol] 61 mg/dL High 40 - 5 9 mg/dL [facility] Comment on above: ATP III HDL Choleste rol Classification is high. Expected Values: Males: >55 = No Risk 35-55 = Moderate Risk <35 = High Risk Females: >65 = No Risk 45-65 = Moderate Risk <45 = High Risk NCEP Guidelines: Third Report November 2000 >59 = negative risk factor for CHD <40 = major risk factor for CHD Cholesterol in LDL [Mass/Vol] 56 mg/dL 0 - 12 9 mg/dL [facility] Comment on above: ATP III LDL Classifi cation is Optimal. Triglyceride [Mass/Vol] 170 mg/dL High 0 - 150 mg/d L [facility] Comment on above: ATP III Triglyceride s Classification is Borderline High. No Panel Informationon 06-28 Interpretation and review of laboratory results Abnormal [facility] Interpretation and review of laboratory results Abnormal [facility] Salicylateon 06-28-2021 Salicylate, Serum <0.3 Low 15.0 - 30.0 mg/dL [facility] Comment on above: Anti-pyretic: 3.0-10 .0 mg/dL Anti-inflammatory: 15.0-30.0 mg/dL Toxic: >30.0 mg/dL TSH without Reflexon 021 TSH Qn 1.110 m[IU]/L [facility] Urinalysis Reflex to Culture on 06-28-2021 Bilirubin Urine Negative Negative [facility] Blood, Urine Negative Negative [facility] Clarity, UA Clear Clear [facility] Color, UA Yellow Straw/Yellow [facility] Glucose, Ur Negative Negative mg/dL [facility] lt Ketones Ql (U) Negative Negative mg/dL [facility] Leukocyte esterase Test strip Ql (U) Negative Negative [facility] Nitrite, Urine Negative Negative [facility] pH, UA 5.5 [facility] Protein, UA Negative Negative mg/dL [facility]th Specific [place], UA 1.003 [facility] Urine Reflex to Culture Not Indicated [facility] Urobilinogen, Urine 0.2 <2.0 E.U./dL [facility] Urine Drug Screenon 06-28-20 Amphetamine Screen, Urine Negative Negative < 1000 ng/mL [facility] Barbiturate Screen, Ur Negative Negative < 20 0 ng/mL [facility] Benzodiazepine Screen, Urine Negative Negativ e < 200 ng/mL [facility] Cannabinoid Scrn, Ur Negative Negative < 50 n g/mL [facility] Cocaine Metabolite Screen, Urine Negative Neg ative < 300 ng/mL [facility] Drug Screen Comment: see below [facility] Comment on above: This method is a scr eening test to detect only these drug classes as part of a medical workup. Confirmatory testing by another method should be ordered if clinically indicated. Methadone Screen, Urine Negative Negative <30 0 ng/mL [facility] Opiate Scrn, Ur Negative Negative < 300 ng/mL [facility] Oxycodone Urine Negative Negative <100 ng/mL [facility] PCP Screen, Urine Negative Negative < 25 ng/m L [facility] Propoxyphene Scrn, Ur Negative Negative <300 ng/mL [facility] Internal Med Progress Noteon 06-27-2021 Internal Med Progress Note [facility] Patient: EDWARD CROWDER [address] [place] [address] MR#: [id number] PROGRESS NOTE - Internal Medicine : 74 Service Date: 06/28/212125 Subjective Summary of Stay LATE ENTRY: This patient was seen and examined on 06/27/2021 for the purposes of medical clearance for discharge, but time did not allow for the entry of a progress note at that time. The following notes are intended as documentation for the date of service as noted above. Edward Crowder is a homeless and unemployed 51 year old single CM currently residing at [facility], who has a prior psychiatric history of schizophrenia but who denies any significant PMHx. He was admitted to [address] [place] [address] Hyman on June 25 for management of decompensated schizophrenia, after being brought to the psychiatric emergency department by [place] police for urgent psychiatric evaluation. He reports that he was downtown, and flagged down police of his own accord complaining that people were threatening to shoot him with a gun. Upon arrival in the emergency room, he primarily complained of anxiety, but appeared paranoid and internally stimulated, with his eyes darting around everywhere. He was disheveled, with odd and intrusive behavior. Mood was euthymic but with affective instability, accelerated and disorganized speech, and paranoid thought content. He was felt to be in need of crisis intervention, and was admitted on an application for involuntary admission, and was then referred to for further inpatient psychiatric evaluation and management. Events since last encounter This patient is being processed for discharge today, and I have been asked to see him for medical clearance for discharge. He is medically stable with no new complaints. Objective Exam Vitals and I/O Vital Signs Verdana 4d Result Date Time B/P 124/73 06/27 1110 Temp 36.3 06/27 1110 Pulse 65 06/27 1110 Resp 18 06/27 1110 Pulse Ox 99 06/25 1321 O2 Delivery ROOM AIR 06/24 1026 HEENT NCAT, EOMI, PERRL Lungs clear to auscultation with normal air movement. No rales or wheezes. Neck supple with no JVD. No thyromegaly or LAD. Cardiovascular regular rate, normal S1, normal S2. Abdomen soft with no tenderness, hepatosplenomegaly, or masses. Extremities no clubbing, cyanosis, tenderness or swelling. Skin no rashes breakdown or significant lesions. Assessment/Plan-Internal Med Med Reasons/Tx for Con't stay being discharged. Assessment IMPRESSION: 1. Mood disorder, NOS; improved following inpatient management as per Dr. Hyman. 2. Psychosis, NOS; also likewise improved. 3. Substance abuse (nicotine, unknown others). He had no acute withdrawal symptoms on this admission. 4. Hyperglycemia, mild and asymptomatic. This likely represents a normal value for the nonfasting state, as the normal A1c rules out prediabetes. 5. Elevated BUN, likely representing a mild prerenal azotemia. His oral intake on this admission appeared adequate to correct this, although the repeat BUN was also mildly elevated. His creatinine remained normal throughout the admission. 6. Polycythemia, mild and asymptomatic, and likely related to cigarette smoking. 7. Elevated blood pressure, with no established prior history of hypertension. The elevated blood pressure reading at the time of admission was indeed likely related to anxiety and agitation, as the blood pressure has mostly improved with no specific intervention. However, mildly elevated blood pressure readings have continued intermittently, and further monitoring will be necessary to determine whether anti-hypertensive medications should be started after discharge. 8. Tachycardia, mild and asymptomatic. The elevated heart rate at the time of admission indeed appears to have been secondary to anxiety and agitation, as it has improved without any active intervention. Continued observation is still indicated, as persistent tachycardia may still warrant further investigation. PLAN: Medically cleared for discharge. The medication reconciliation form was reviewed and approved. Prescriptions were printed out and provided to the patient for homegoing use as needed. Follow-up for the above medical issues was advised in 2-4 weeks. My office number and contact information was provided in the nursing discharge summary so that I can be contacted for any problems that should arise between now and the time that follow-up is arranged with the patient's usual PCP. Be sure to note changes Be sure to note changes DVT Prophylaxis encourage ambulation Electronically Signed eSign Date and Time Sachin Cat MD 08/06/212048 Normal [facility] Justification DC Antipsy Med son 06-27-2021 Justification DC Antipsy Meds [facility] Pt Name: EDWARD CROWDER MR#: [id number] [address] [place] [address] ACCT: [id number] [place] [address] : 74 Service Date: 06/27/21922 Justification Discharge Meds Justification for DC Meds Please complete one: [X ] Not applicable. Patient not being discharged on more than one antipsychotic. [ ] The medical record contains a recommended plan to taper the following medication to monotherapy as an outpatient when/if clinically appropriate due to previous use of multiple antipsychotic medications. [ ] Clozapine is being used for augmentation. [ ] History of three failed trials of antipsychotic monotherapy medications includin. [name of medication ] 2. [name of medication ] 3. [name of medication ] [ ] Cross taper of antipsychotic medications in progress: A. [name of medication] is being increased B. [name of medication] is being decreased Electronically Signed eSign Date and Time Sonja Burns FLIGHT TECHNICIAN 06/27/21 0924 Normal [facility] BASIC MET PANELon 06-26-2021 Anion gap [Moles/Vol] 9 mmol/L Normal 6-18 [facility] Comment on above: Order Comment: CONSE RVATIONIs patient fasting? NO Performed By: #### L 500.57537, L500.14848, L500.80585, L500.27622 ####Test performed at: [address] [address] Calcium [Mass/Vol] 8.6 mg/dL Normal 8.5-10.1 [facility] Comment on above: Order Comment: CONSE RVATIONIs patient fasting? NO Performed By: #### L 500.77079, L500.17514, L500.50015, L500.46446 ####Test performed at: [address] [address] Chloride [Moles/Vol] 109 mmol/L High 98-107 [facility] Comment on above: Order Comment: CONSE RVATIONIs patient fasting? NO Performed By: #### L 500.10733, L500.87757, L500.12849, L500.36571 ####Test performed at: [address] [address] CO2 [Moles/Vol] 27 mmol/L Normal 21-32 [facility] Comment on above: Order Comment: CONSE RVATIONIs patient fasting? NO Performed By: #### L 500.10398, L500.32375, L500.08701, L500.59016 ####Test performed at: [address] [address] Creatinine [Mass/Vol] 1.140 mg/dL Normal 0.700-1.300 [facility] Comment on above: Order Comment: CONSE RVATIONIs patient fasting? NO Performed By: #### L 500.39515, L500.13982, L500.09736, L500.62943 ####Test performed at: [address] [address] Glucose [Mass/Vol] 65 mg/dL Low 70-99 [facility] Comment on above: Order Comment: CONSE RVATIONIs patient fasting? NO Result Comment: Fast ing GLUCOSE reference range has been updated per (ADA) [place] [employer]'s recommendation. 10/05/2018 Performed By: #### L 500.08390, L500.23767, L500.52076, L500.23453 ####Test performed at: [address] [address] OSM 294 mosm/kg Normal 270-300 [facility] Comment on above: Order Comment: CONSE RVATIONIs patient fasting? NO Performed By: #### L 500.52704, L500.88415, L500.32365, L500.17752 ####Test performed at: [address] [address] Potassium [Moles/Vol] 4.9 mmol/L Normal 3.5-5.1 [facility] Comment on above: Order Comment: CONSE RVATIONIs patient fasting? NO Performed By: #### L 500.94756, L500.65569, L500.46126, L500.19088 ####Test performed at: [address] [address] Sodium [Moles/Vol] 140 mmol/L Normal 136-145 [facility] Comment on above: Order Comment: CONSE RVATIONIs patient fasting? NO Performed By: #### L 500.31008, L500.36843, L500.08790, L500.34322 ####Test performed at: [address] [address] Urea nitrogen [Mass/Vol] 28 mg/dL High 7-18 [facility] Comment on above: Order Comment: CONSE RVATIONIs patient fasting? NO Performed By: #### L 500.97813, L500.09450, L500.52002, L500.31644 ####Test performed at: [place] [address] EST. CREAT CLRon 06-26-2021 EST. CREAT CLR 101.998 ML/MIN Normal [facility] Comment on above: Order Comment: CONSE RVATIONIs patient fasting? NO Result Comment: This result is an ESTIMATED blood creatinine clearance value which is derived from the patient age, sex, weight, and previous blood creatinine result. Performed By: #### L 500.19673, L500.88623, L500.80061, L500.06310 ####Test performed at: [place] [address] GFR ESTIMATEon 06-26-2021 IF AMER > 60 Normal > 60 [facility] Comment on above: Order Comment: CONSE RVATIONIs patient fasting? NO Result Comment: eGFR (Estimated GFR) Units of measure:mL/min/1.73 meters sq. *CALCULATION REVISED 05/01/2015;IDMS-traceable MDRD equation eGFR is derived from the reexpressed MDRD Study equation using the following parameters: serum creatinine, age, gender and race. An eGFR<60 mL/min/1.73m2 for >3 months is consistent with chronic kidney disease. Refer to KDOQI guidelines for clinical interpretation. Performed By: #### L 500.13583, L500.48420, L500.46509, L500.00701 ####Test performed at: [place] [address] IF non-AFR AMER > 60 Normal > 60 [facility] Comment on above: Order Comment: CONSE RVATIONIs patient fasting? NO Performed By: #### L 500.98735, L500.22672, L500.59466, L500.40538 ####Test performed at: [place] [address] [address] GLYCO HEMOon 06-26-2021 HbA1c (Bld) [Mass fraction] 5.1 % Normal [facility] Comment on above: Order Comment: CONSE RVATION Result Comment: Oma delgado Diagnosis HbA1c (%) --------- Diabetic > 6.4 Prediabetes 5.7-6.4 Normal < 5.7 Performed By: #### L 500.90517 ####Test performed at: [place] [id number] LIPID PROFILEon 06-26-2021 Cholesterol [Mass/Vol] 126 mg/dL Normal <200 [facility] Comment on above: Order Comment: CONSE RVATIONIs patient fasting? NO Result Comment: <200 mg/dL (Desirable) 200-240 mg/dL (Borderline) >240 mg/dL (High Risk) Performed By: #### L 500.50371, L500.66380, L500.17542, L500.07613 ####Test performed at: [place] [id number] Cholesterol in HDL [Mass/Vol] 52 mg/dL Normal 40-60 [facility] Comment on above: Order Comment: CONSE RVATIONIs patient fasting? NO Performed By: #### L 500.12884, L500.70942, L500.88322, L500.97190 ####Test performed at: [address] [address] Cholesterol in LDL [Mass/Vol] 59 mg/dL Low 60-130 [facility] Comment on above: Order Comment: CONSE RVATIONIs patient fasting? NO Performed By: #### L 500.19780, L500.11948, L500.72042, L500.22138 ####Test performed at: [place] [id number] Triglyceride [Mass/Vol] 92 mg/dL Normal <150 [facility] Comment on above: Order Comment: CONSE RVATIONIs patient fasting? NO Result Comment: <150 mg/dL (Normal) 150-199 mg/dL (Borderline) 200-499 mg/dL (High) >500 mg/dL (Very High) Performed By: #### L 500.66071, L500.30047, L500.50797, L500.10046 ####Test performed at: [place] [address] Psychiatric Progress Noteon 06-26-2021 Psychiatric Progress Note [facility] Patient: EDWARD CROWDER [address] [place], [place] [address] MR#: [id number] PROGRESS NOTE - Psychiatric Medicine : 74 Service Date: 06/26/211422 Subjective Summary of Stay Patient was brought to the PED by police on 06/24/2021 for assessment of anxiety. Reportedly he was threatening to shoot people with a gun. In the PED he presented as pressured with rapid speech. He appeared highly anxious, paranoid, hypervigilant and internally stimulated. His eyes were darting around the unit. He had been to the PED on 06/23/2021 reporting anxiety at that time as well, but was not admitted. 06/26/2021 The interdisciplinary team met and reviewed treatment goals and discharge planning. Chart and documentation were reviewed. Spoke with nursing who reported that patient is sleeping and eating well and that his mood seems to be improving. Subjective: Patient states that his mood is a little better . He reports improvement in both depression and anxiety. States that he is sleeping and eating well. Denies A/V hallucinations. Denies SI/HI. He is adherent to Zyprexa 15 g q HS. He took PRN Ativan 2 mg pO on 06/25/2021 at 1016 for anxiety. He denies medication side effects. Objective: MSE: Patient is dressed appropriately. He is pleasant and coopertive. Alert and oriented x 4. Attention and concentration are fair. Eye contact was good. Speech is clear and spontaneous. Mood is better . Affect is brighter today. Thoughts are logical and coherent. Denies A/V hallucinations. Denies SI/HI. Memory intact. Psychomotor activity WNL. Insight and judgment are fair. Objective Exam Vitals and I/O Vital Signs Verdana 4d Result Date Time B/P 119/75 06/26 914 Temp 36.4 06/26 0914 Pulse 95 06/26 0914 Resp 18 06/26 0914 Pulse Ox 99 06/25 1321 O2 Delivery ROOM AIR 06/24 1026 Results Results All Laboratory Tests 06/26 1103 Chemistry Sodium (136 - 145 mmol/L) 140 Potassium (3.5 - 5.1 mmol/L) 4.9 Chloride (98 - 107 mmol/L) 109 Carbon Dioxide (21 - 32 mmol/L) 27 BUN (7 - 18 mg/dL) 28 mg/dL) 1.140 Est GFR ( Amer) (> 60) > 60 Est GFR (Non-Af Amer) (> 60) > 60 Glucose (70 - 99 mg/dL) 65 Assessment and Plan - ICD10 Assessment Diagnosis: Mood Disorder NOS SONG Plan: Continue psychiatric admission on 4B. Patient requires more time for medication management. Continue Zyprexa 15 mg q HS for mood and psychosis. PRN medications are available for anxiety and agitation. Assault and elopement precuations will be maintained. Social work assisting with discharge plan. Internal medicine following for medical management. He is encouraged to participate in groups and activities in the milieu. Anticipate discharge tomorrow. Sonja Burns CNP Electronically Signed eSign Date and Time Sonja Burns CNP 06/26/21 1433 [facility] H & Pietro 06-25-2021 H & P [facility] Patient: EDWARD CROWDER [address] [place] [address] MR#: [id number] HISTORY and PHYSICAL : Service Date: 06/25/21 1043 History of Present Illness Travel Out of [place] in last month No Family/Social History Social History Smoking Status CURRENT EVERY DAY SMOKER Packs/Day LESS THAN 1/2 Alcohol YES Occupation not working Allergies/Home Medications Allergies Coded Allergies: NO KNOWN ALLERGENS (06/23/21) Reconcile Medications Scheduled Medications predniSONE* 20 MG TABLET 20 MG PO DAILY #3 TABLET, Ref 0 Prescribed by AMBREEN XAVIER on 06/23/21 Last Action: No Recorded Action Scheduled PRN Medications Hydroxyzine Pamoate (Vistaril) 25 MG CAPSULE 25 MG PO QHSPRN PRN anxiety/insomnia #10 CAP, Ref 0 Prescribed by AMBREEN XAVIER on 06/23/21 Last Action: No Recorded Action Physical Exam Appearance Cm: 170.18 Wt-K.000 BMI 31.7 Pain Scale 0 Neuro * Document results of Cranial Nerve Asmt for all pts. Electronically Signed eSign Date and Time Xavier Camarillo Resident [facility] Internal Med Progress Noteon 06-25-2021 Internal Med Progress Note [facility] Patient: EDWARD CROWDER [address] [place] [address] MR#: [id number] PROGRESS NOTE - Internal Medicine : 72 Service Date: 06/25/21 1128 Subjective Primary Resident: Simba camarillo After Hours Call: [phone] Blue Team Summary of Stay Pt is 51-year-old man with no significant psychiatric records at [facility], was seen in the medical emergency room for anxiety. He is being managed as a case of unspecified pyschosis. He is stable. No new complaints Events since last encounter none Subjective stable General Denies Chills, Denies Night sweats HEENT Denies Head Aches, Denies Visual Changes Pulmonary Denies Dyspnea, Denies Cough Cardiovascular Denies Chest Pain, Denies Palpitations Gastrointestinal Denies Nausea, Denies Vomiting Objective Exam Vitals and I/O Vital Signs Verdana 4d Result Date Time B/P 106/74 06/24 1542 Temp 35.9 06/24 1542 Pulse 88 06/24 1542 Resp 20 06/24 1542 Pulse Ox 97 06/24 1026 O2 Delivery ROOM AIR 06/24 1026 Intake AND Output Verdana 4d 06/25 2300 06/24 2300 Intake Total Output Total Balance Patient 92 kg eight General Appearance No Acute Distress HEENT Atraumatic Lungs Clear to Auscultation Neck Supple Cardiovascular Regular Rate Abdomen Normal Bowel Sounds Assessment/Plan-Internal Med Med Reasons/Tx for Con't stay as above Assessment #Unspecified pyschosis -Pt seen and examined -vss -no new complaints -pysch meds onboard -Hba1c, lipid panel #DVT pp -encourage ambulation Be sure to note changes Be sure to note changes DVT Prophylaxis encourage ambulation Electronically Signed eSign Date and Time Xavier Camarillo Resident Asuncion Rogers MD, Abdul Res [facility] Internal Medicine Consultati onon 06-25-2021 Internal Medicine Consultation [facility] Patient: EDWARD CROWDER [address] [place] [address] MR#: [id number] CONSULTATION - Internal Medicine : 72 Service Date: 06/25/21 174 History of Present Illness Referring Physician Alfie Hyman MD Consulted Physician Asuncion Rogers MD Reason for Consult medical mgt Chief Complaint/Present Illness: bizarre behavior HPI Pt is 51-year-old man with no significant psychiatric records at [facility], was seen in the medical emergency room for anxiety. He is being managed as a case of unspecified pyschosis. He is stable. Denies any hx of recent substance ingestion. No new complaints. Medical/Surgical History Past Medical History Transfusion Status CONSERVATION Family/Social History Social History Tobacco Use CIGARETTES Packs/Day LESS THAN 1/2 Alcohol YES Occupation not working Allergies/Home Medications Allergies Coded Allergies: NO KNOWN ALLERGENS (06/23/21) Reconcile Medications Scheduled Medications predniSONE* 20 MG TABLET 20 MG PO DAILY #3 TABLET, Ref 0 Prescribed by AMBREEN XAVIER on 06/23/21 Last Action: No Recorded Action Scheduled PRN Medications Hydroxyzine Pamoate (Vistaril) 25 MG CAPSULE 25 MG PO QHSPRN PRN anxiety/insomnia #10 CAP, Ref 0 Prescribed by AMBREEN XAVIER on 06/23/21 Last Action: No Recorded Action Review of Systems Review of Systems ROS: Other Ros was NC Physical Exam Appearance Appearance No distress Cm: 170.18 Wt-K.000 BMI 31.7 Patient is Obese Pain Scale 0 Neck Neck Normal inspection HEENT HEENT Head atraumatic Respiratory Respiratory Lungs sound clear CVS Cardiovascular Rate WNL Neuro * Document results of Cranial Nerve Asmt for all pts. Neurological Alert Abdomen/Pelvis Abdomen Bowel sounds present Assessment/Plan Assessment and Plan #Unspecified pyschosis -Pt seen and examined -was alert and exhibited signs of internal stimulation -vss -Cvs; s1s2 -Chest; Clear -Abd; normoactive bowel sounds -Utox; not received -Labs: not received -no new complaints -pysch meds onboard -Hba1c, lipid panel -rest of mgt as per pysch #DVT ppx -encourage ambulation *Attending Attestation Attending Attestation Comments The patient seen and examined. He was admitted from psychiatric emergency with worsening anxiety. Patient was seen recently in the emergency for anxiety and will discharge home. His lab back then showed evidence of respiratory alkalosis due to the hyperventilation. Patient currently seem to be called uncooperative with encounter. He reported a history of hypertension and was in the medication before. However blood pressure currently is stable without medication. Patient denied any other medical condition. We will continue observing him with the psych team and start blood pressure medication if it is indicated. Attending Attestation All pertinent elements of history and physical exam were confirmed by me. Agree with above documentation. The [resident's, PA's, HYDRO STATION OPERATOR's] assessment and plan reflect my input. Discussed with documenting provider and patient. Plan is as outlined above. Electronically Signed eSign Date and Time Xavier Camarillo Resident Asuncion Rogers MD 06/26/21 1343 Huong Ruby Res [facility] Primary Residenton Primary Resident [facility] Pt Name: EDWARD CROWDER MR#: [id number] [address] [place] [address] ACCT: [id number] [place] [address] : 74 Service Date: 06/25/21 1043 Primary Resident/Call Primary Resident: JOHANNA 5085 After Hours Call: [phone] Blue Team Electronically Signed eSign Date and Time Xavier Camarillo Resident 06/25/21 1043 Normal [facility] Psychiatric Progress Noteon 06-25-2021 Psychiatric Progress Note [facility] Patient: EDWARD CROWDER [address] [place] [address] MR#: [id number] PROGRESS NOTE - Psychiatric Medicine : 72 Service Date: 06/25/21 1201 Subjective Summary of Stay Identification: Edward Crowder is a 51 year old male with a history of anxiety. Chief Complaint: I have anxiety and depression and I wanted to get back on meds . HPI: Patient was brought to the PED by police on 06/24/2021 for assessment of anxiety. Reportedly he was threatening to shoot people with a gun. In the PED he presented as pressured with rapid speech. He appeared highly anxious, paranoid, hypervigilant and internally stimulated. His eyes were darting around the unit. He had been to the PED on 06/23/2021 reporting anxiety at that time as well, but was not admitted. Psychiatric Review of Systems: Patient states that his mood is anxious and depressed. He endorses fatigue, decreased motivation, isolating, poor sleep (3-4 hour per night), and racing thoughts. Denies difficulty with appetite. Denies A/V hallucinations. No paranoid or delusional thoughts. Denies SI/HI. Psychiatric History: Patient has not been active with an outpatient psychiatric provider since 2010. He has a history of 3 prior psychiatric hospitalizations. No history of suicide attempts. Substance Use History: Patient reports that he drinks a few beers everyday. Unable to quantify more specifically. He denies any history of alcohol withdrawal or DTs. Denies illicit drug use. Smokes 1/2 pack of cigarettes per day. Utox and BAL were negative on 06/23/2021. Social History: Patient was born and raised locally. Highest level of education was 11th grade. He has a GED. He is but . Has 5 children- sees them once in a while . He is unemployed and has no income. He was released from penitentiary on Thursday06/23/2021 after serving 2 years related to a DV charge. He is on parole for 3 years. Denies amish preference. No history. Medical History: HTN Surgical History: History of neck surgery (rods, plates and screws) Allergies: No known allergies MSE: Patient is disheveled. He is seclusive. Alert and oriented x 4. Attention and concentration are fair. Eye contact is fair. Speech is clear. Mood is depressed and anxious. Affect is congruent. Thoughts are logical and coherent. Denies A/V hallucinations. Paranoia appears to have resolved. Denies SI/HI. Memory intact. Psychomotor activity WNL. Insight and judgment are fair. Objective Exam Vitals and I/O Vital Signs Verdana 4d Result Date Time Pulse Ox 99 06/25 1321 B/P 111/68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 Result Comment: Fast ing GLUCOSE reference range has been updated per (ADA) [place] [employer]'s recommendation. 10/05/2018 Performed By: #### L 500.17778, L500.10584, L500.43840, L500.18722 #### Test performed at: [address] [address] Potassium [Moles/Vol] 3.6 mmol/L Normal 3.5-5.1 [facility] Comment on above: Order Comment: CONSE RVATION Performed By: #### L 500.66264, L500.51363, L500.81111, L500.71653 #### Test performed at: [address] [address] Protein [Mass/Vol] 7.2 g/dL Normal 6.4-8.2 [facility] Comment on above: Order Comment: CONSE RVATION Performed By: #### L 500.96641, L500.04204, L500.21301, L500.79620 #### Test performed at: [address] [address] Sodium [Moles/Vol] 137 mmol/L Normal 136-145 [facility] Comment on above: Order Comment: CONSE RVATION Performed By: #### L 500.21029, L500.07995, L500.97617, L500.91839 #### Test performed at: [address] [address] Urea nitrogen [Mass/Vol] 19 mg/dL High 7-18 [facility] Comment on above: Order Comment: CONSE RVATION Performed By: #### L 500.31958, L500.90652, L500.05291, L500.16765 #### Test performed at: [place] [id number] CT HEAD/BRAIN WO CONon 06-23 CT HEAD/BRAIN WO CON STUDY: CT HEAD/BRAIN WO CON; 06/23/2021 2:45 pm INDICATION: Headache. COMPARISON: 03/21/2011 ACCESSION NUMBER(S): [id number] ORDERING CLINICIAN: Rosalio Pereira TECHNIQUE: Multiple axial CT images of the brain are obtained without use of intravenous contrast. FINDINGS: INTRACRANIAL: Brain Parenchyma: Normal fung-white matter differentiation. No mass effect or midline shift. Hemorrhage: None. Ventricles and Sulci: Normal size and configuration. EXTRACRANIAL: Soft Tissues: Within normal limits. Extracranial Vessels: No calcification. Paranasal Sinuses/Mastoids: Imaged portion is clear. Calvarium: No destructive lesion or acute fracture. IMPRESSION: No acute intracranial hemorrhage or mass effect. Normal [facility] CT SINUSES/FACIAL WO CONon 1 08-24-2020 CT SINUSES/FACIAL WO CON STUDY: CT SINUSES/FACIAL WO CON 06/23/2021 2:45 pm INDICATION: Right orbital pain COMPARISON: None. ACCESSION NUMBER(S): [id number] ORDERING CLINICIAN: Rosalio Pereira TECHNIQUE: Thin cut axial CT images through the facial bones were obtained and reconstructed in the coronal plane. FINDINGS: Orbits: The bony orbits are intact. The orbital contents are unremarkable. Facial Bones: There is no displaced facial bone fracture. Mandible/Temporomandibular Joints: Visualized portions of mandible and bilateral temporomandibular joints are intact. Paranasal Sinuses/Mastoids: Visualized paranasal sinuses and mastoids are clear. Soft tissues: Unremarkable. Anterior cervical fusion hardware is partially included on this exam. IMPRESSION: No acute facial bone fracture visualized. Normal [facility] ED Provider Reporton 021 ED Provider Report [facility] Pt Name: EDWARD CROWDER MR#: [id number] [address] [place] [address] ACCT: [id number] : 74 EMERGENCY PROVIDER REPORT ADM Date: 06/23/21 ER Physician: Rosalio Pereira MD History of Present Illness Time Seen by 1330 Source of Information PATIENT Triage Complaint ANXIETY ATTACK, HYPERVENTILATING Symptom Onset TODAY Travel Out of [place] in last month No History of Present Illness This is a 51-year-old male who is brought in by EMS from the [facility] patient is stating that he has been having a anxiety attack is hyperemic ventilating is feeling tightness in his jaw and anxiety. Past Medical History Past Medical History Denies Dysrhythmia, Denies CHF, Denies CA, Denies HTN, Denies High Cholesterol, Denies Diabetic, Denies Neuropathy, Denies COPD, Denies Asthma, Denies CVA, Denies TIA, Denies Depression, Denies Bipolar, Denies Schizophrenia Past Med Hx con't Denies Liver Disease, Denies Hepatitis, Denies Pancreatitis, Denies GI Bleed, Denies Sickle Cell, Denies HIV/AIDS, Denies Immunocompromised, Denies Kidney Disease, Denies CRF, Denies Hemodialysis, Denies Hx Kidney Stones, Denies MRSA Surgical History Denies Appendectomy, Denies CABG, Denies PTCA, Denies Pacemaker, Denies Anna, Denies Hysterectomy, Denies Total Joint, Denies Bariatric Family History None Past Social History Tobacco Use CIGARETTES Alcohol UNKNOWN Drug Use YES Living arrangements FDC Review of Systems Review of Systems Allergies Coded Allergies: NO KNOWN ALLERGENS (06/23/21) Nursing Notes Reviewed Yes Medications Reviewed I have reviewed the patient's Home Medication List Constitutional Denies Fever, Denies Chills, Denies Diaphoresis, Denies Weakness, Denies Weight loss, Denies Recent Illness EENT Denies: Vision Change, Vision Problems, Sore Throat, Dental Problems, Nasal Congestion, Nasal Drainage. CVS/Pulmonary Shortness of breath, Denies Chest pain, Denies Hurts to breath, Denies Cough GI/ Denies: Abdominal Pain, Nausea, Vomiting, Diarrhea, Black Stools, Bloody Stools, Problems Urinating, Painful Urination. MS/SKIN/LYMPH Denies Extremity Pain, Denies Calf Pain, Denies Leg Pain, Denies Neck Pain, Denies Back Pain, Denies Joint Pain, Denies Ankle Swelling, Denies Leg Swelling, Denies Rash, Denies Swollen Glands Neuro/Psych Denies Headache, Denies Fainting, Denies Dizzy, Denies Loss of Sensation, Denies Weakness, Denies Difficulty Walking, Denies Difficulty with Speech, Denies Confusion ROS ROS: All other systems reviewed and are negative. Physical Exam Vital Signs Vital Signs Reviewed Yes Vital Signs Vital Signs Verdana 4d Date Time Temp Pulse Resp B/P B/P Pulse O2 O2 Flow FiO2 Mean Ox Delivery Rate 06/23 1722 101 18 133/83 98 06/23 1500 118 20 148/87 97 06/23 1316 37.0 68 20 98 Appearance General Appearance Appears well, Alert, No Distress. Neuro Neuro Oriented x 3, Speech Clear, Moves all extremities Neck NECK Nml Inspection, No thyromegaly, No Lymphadenopathy, No Kernig/Brudzinski's, No Carotid Bruit HEENT HEENT Head Atraumatic, Eyes Nml Inspection, Hearing grossly normal, No Signs of Dehydration, Mucosa Moist Respiratory Respiratory Lungs sounds clear, Respirations nonlabored, Symmetrical expansion CVS Cardiovascular Rate WNL, Rhythm regular, Normal heart sounds, Pulses full,equal, Brisk Capillary Refill Abdomen/Pelvis Abdomen/GI Bowel Sounds Present, Abdomen soft, Non-Tender, No distention Extremity Extremity Normal Appearance, Full ROM, Sensation Intact, Motor Intact, No Vasc Compromise, Tendon Function NML, No tenderness, No Pedal Edema, Normal Gait Skin Skin Color Nml, Warm, Dry Medical Decision Making Diagnostics Labs Laboratory Tests Lesly 4d 06/23 06/23 06/23 1710 1345 1330 Blood Gas Sample Site RR Patient Temperature (36.5 - 37.5 C) 37.0 pH (7.35 - 7.45) 7.46 H pCO2 (35 - 48 mmHg) 33 L pO2 (83 - 108 mmHg) 102 HCO3 (21.0 - 28.0 MEQ/L) 23.5 Total CO2 (22.0 - 28.0 mmol/L) 24.5 Base Excess (-2.0 - 3.0 mmol/L) 0.5 ABG O2 Sat Calc/Hugo (95.0 - 98.0 %) 96.4 ABG O2 Content (15.0 - 24.0 mmol/L) 23.2 ABG Hemoglobin (11.7 - 17.4 g/dL) 17.1 ABG Carboxyhemoglobin (0.5 - 1.5 %) 2.1 H ABG Methemoglobin (<3.0 %) 1.0 Rolando Test DONE A-a Gradient (10 - 25 mmHg) 6 L Ventilator Type ROOM AIR FiO2 (20 - 100 %) 21 hemistry Sodium (136 - 145 mmol/L) 137 Potassium (3.5 - 5.1 mmol/L) 3.6 Chloride (98 - 107 mmol/L) 105 Carbon Dioxide (21 - 32 mmol/L) 19 L BUN (7 - 18 mg/dL) 19 H Creatinine (0.700 - 1.300 mg/dL) 1.270 Est GFR ( Amer) (> 60) > 60 Est GFR (Non-Af Amer) (> 60) 60 Glucose (70 - 99 mg/dL) 100 H Total Calcium (8.5 - 10.1 mg/dL) 9.5 Total Bilirubin (0.2 - 1.0 mg/dL) 0.5 AST (15 - 37 U/L) 32 ALT (13 - 61 U/L) 57 Alkaline Phosphatase (45 - 117 U/L) 112 Troponin I (0.01 - 0.045 ng/mL) < 0.015 Se (more content not included)... Normal [facility] EKGon 06-23-2021 Electrocardiogram Acquired on 06/23/20 21 1404 Vent. Rate : 116 BPM Atrial Rate : 116 BPM P-R Int : 154 ms QRS Dur : 080 ms QT Int : 332 ms P-R-T Axes : 048 074 073 degrees QTc Int : 461 ms Sinus tachycardia Otherwise normal ECG No previous ECGs available Confirmed by MACARENA AMOS, MILLIE Hopkins ([id number]) on 06/24/2021 4:28:53 PM Referred By: Confirmed By:MILLIE FIORE MD [phone] 2020 --- [facility] PT NAME: EDWARD CROWDER MR#: [id number] [address] [place] [address] ACCT: [id number] : 74 EKG REPORT Normal [facility] GFR ESTIMATEon 06-23-2021 IF AMER > 60 Normal > 60 [facility] Comment on above: Order Comment: CONSE RVATION Result Comment: eGFR (Estimated GFR) Units of measure:mL/min/1.73 meters sq. *CALCULATION REVISED 05/01/2015;IDMS-traceable MDRD equation eGFR is derived from the reexpressed MDRD Study equation using the following parameters: serum creatinine, age, gender and race. An eGFR<60 mL/min/1.73m2 for >3 months is consistent with chronic kidney disease. Refer to KDOQI guidelines for clinical interpretation. Performed By: #### L 500.93214, L500.71116, L500.77000, L500.57630 #### Test performed at: [place] [address] IF non-AFR AMER 60 Normal > 60 [facility] Comment on above: Order Comment: CONSE RVATION Performed By: #### L 500.45014, L500.12059, L500.17896, L500.58637 #### Test performed at: [place] [address] LIMIT UR TOXon 06-23-2021 PH TOX 7.0 Normal 5.0-8.0 [facility] Comment on above: Performed By: #### L 600.17674, L600.01590 #### Test performed at: [place] [address] UR AMPH Negative Normal Negative [facility] Comment on above: Result Comment: CUTO DR=5870 Performed By: #### L 600.17338, L600.93173 #### Test performed at: [place] [address] UR TOMÁS Negative Normal Negative [facility] Comment on above: Result Comment: CUTO QM=002 Performed By: #### L 600.71194, L600.81461 #### Test performed at: [place] [address] UR SWETHA Negative Normal Negative [facility] Comment on above: Result Comment: CUTO TF=508 Performed By: #### L 600.12005, L600.20629 #### Test performed at: [place] [address] UR BUPREN/NORBU Negative Normal Negative [facility] Comment on above: Result Comment: CUTO FF=10 Performed By: #### L 600.69150, L600.21245 #### Test performed at: [place] [id number] UR DEANNE/THC Negative Normal Negative [facility] Comment on above: Result Comment: CUTO FF=50 Performed By: #### L 600.20270, L600.86211 #### Test performed at: [place] [id number] UR LUZ MARINA Negative Normal Negative [facility] Comment on above: Result Comment: CUTO RQ=608 Performed By: #### L 600.36251, L600.74309 #### Test performed at: [place] [address] UR ECSTASY Negative Normal Negative [facility] Comment on above: Performed By: #### L 600.99534, L600.62362 #### Test performed at: [place] [address] UR FENTANYL Negative Normal Negative [facility] Comment on above: Result Comment: CUTO LS=6260 Performed By: #### L 600.71549, L600.45319 #### Test performed at: [place] [address] UR METH Negative Normal Negative [facility] Comment on above: Result Comment: CUTO JU=601 Performed By: #### L 600.74729, L600.72088 #### Test performed at: [place] [id number] UR OPIAT Negative Normal Negative [facility] Comment on above: Result Comment: CUTO OW=204 Performed By: #### L 600.74099, L600.04735 #### Test performed at: [place] [id number] UR OXYCODONE Negative Normal Negative [facility] Comment on above: Result Comment: CUTO WD=608 Performed By: #### L 600.79704, L600.84995 #### Test performed [place]: [place] [address] UR PCP Negative Normal Negative [facility] Comment on above: Result Comment: CUTO FF=25 Performed By: #### L 600.83616, L600.76739 #### Test performed at: [facility] [address] [place] [address] TOX COMMENT *PLEASE NOTE: Normal [facility] Comment on above: Result Comment: UNCO NFIRMED Toxicology results. For MEDICAL purposes only. Performed By: #### L 600.81342, L600.32875 #### Test performed at: [place] [address] Psychiatry Consultationon Psychiatry Consultation [facility] Patient: EDWARD CROWDER [address] [place] [address] MR#: [id number] CONSULTATION - Psychiatry : Service Date: 06/23/21 1603 History of Present Illness Consulted Physician Alicia Gonzalez DNP Reason for Consult Anxiety eval Chief Complaint/Present Illness: Anxiety HPI 51 yo male reported PPH Bipolar, schizophrenia, and anxiety. Was released from [facility] today to [facility] after incarceration of 2 years for domestic violence. States he has not been on any mental health medications x 1 year. I was doing fine until I went to [facility] today and bob just started approaching me. That made me feel anxious like I needed to defend myself. Anxiety like symptoms started today when I was approached by the duzoë at [facility]. Pt states he has a chief lifestyle officer that he plans to call tomorrow regarding living arrangements and his concerns with [facility]. Also states he has a case maker that he will calling tomorrow as well. Throughout the interview pt has mentioned he would like to stay here at the hospital for a 72 hour hold until he can get his living arrangement squared away with his chief lifestyle officer. Also repeatedly mentions that he was on Xanax before he was incarcerated and this worked well for his anxiety. Endorses restlessness. Denies fatigue, difficulty concentrating, irritability, muscle tension, sleep disturbance, panic attacks, and PTSD symptoms. PPH: Prior diagnoses: self-reported Bipolar, schizophrenia, and anxiety Outpatient psychiatrist: none Dates of last/next apt with psychiatrist: Dr. Gil in [place] years ago (not connected now) Agency: none tipple worker: unsure of name Dates of last/next apt with leather case finisher: will call tomorrow Therapist: none Guardian/POA: none Prior psych hospitalizations: 2013 [facility] for medication management Previous Substance Abuse Tx: denies History of self-injurious behavior: denies History of suicide attempt: denies Current or past ECT treatments: denies Previous psych meds: Xanax, Geodon History of noncompliance: unknown Current/Most recent psych meds: none Social: Education: GED Born and raised: [place] Marital Status: Children: 4 Lives: [place] [employer] Employ: none Legal History (skilled nursing/penitentiary, probation/parole, DUI, TPO): On [place], 2 years [facility] Access to weapons/firearms/guns: no Substance Use: Tobacco: none EtOH: none Cannabis: none Opioids: none Benzos: prescibed in the past nothing recent Cocaine: none MSE: Appearance: Dressed in [place] attire, tattoos covering both arms, good hygiene, good eye contact Speech: WNL Affect: WNL Mood: WNL Thought Form: WNL, Coherent, Logical, Organized Thought Content: WNL, Denies A/V Hallucinations, Paranoia. Denies SI/HI Psychiatric Mental Status Exam Past Medical History Denies Dysrhythmia, Denies CHF, Denies CA, Denies HTN, Denies High Cholesterol, Denies Diabetic, Denies Neuropathy, Denies COPD, Denies Asthma, Denies CVA, Denies TIA, Denies Depression, Denies Bipolar, Denies Schizophrenia Past Med Hx con't Denies Liver Disease, Denies Hepatitis, Denies Pancreatitis, Denies GI Bleed, Denies Sickle Cell, Denies HIV/AIDS, Denies Immunocompromised, Denies Kidney Disease, Denies CRF, Denies Hemodialysis, Denies Hx Kidney Stones, Denies MRSA Allergies Coded Allergies: NO KNOWN ALLERGENS (06/23/21) Medical/Surgical History Past Medical History Transfusion Status CONSERVATION Family/Social History Social History Tobacco Use CIGARETTES Alcohol NO Drug Use YES Allergies/Home Medications Allergies Coded Allergies: NO KNOWN ALLERGENS (06/23/21) Physical Exam - Psy Appearance BMI 23.9 Assessment/Plan Lab Laboratory Tests 06/23 06/23 1345 1330 Chemistry Sodium (136 - 145 mmol/L) 137 Potassium (3.5 - 5.1 mmol/L) 3.6 Chloride (98 - 107 mmol/L) 105 Carbon Dioxide (21 - 32 mmol/L) 19 L BUN (7 - 18 mg/dL) 19 H Creatinine (0.700 - 1.300 mg/dL) 1.270 Est GFR ( Amer) (> 60) > 60 Est GFR (Non-Af Amer) (> 60) 60 Glucose (70 - 99 mg/dL) 100 H Total Calcium (8.5 - 10.1 mg/dL) 9.5 mg/dL) 0.5 AST (15 - 37 U/L) 32 ALT (13 - 61 U/L) 57 Alkaline Phosphatase (45 - 117 U/L) 112 Troponin I (0.01 - 0.045 ng/mL) < 0.015 Serum Total Protein (6.4 - 8.2 gm/dL) 7.2 gm/dL) 4.3 ematology WBC (3.9 - 11.0 K/uL) 9.9 RBC (3.5 - 5.5 M/uL) 5.41 Hgb (14.0 - 16.5 g/dL) 16.6 H Hct (39.0 - 55.0 %) 47.6 MCV (80.0 - 100.0 fL) 88.0 MCH (25.4 - 34.6 pg) 30.7 MCHC (31.5 - 36.5 g/dL) 34.9 RDW (11.5 - 14.5 %) 12.0 Plt Count (140 - 440 K/uL) 333 MPV (8.7 - 12.4 fL) 9.9 Immature Gran % (Auto) (%) 0.3 Neut % (Auto) (%) 77.5 Lymph % (Auto) (%) 11.3 (Auto) (%) 10.6 Eos % (Auto) (%) 0.1 Baso % (Auto) (%) 0.2 Neut # (Auto) (1.4 - 6 (more content not included)... Normal [facility] UA COMPLETEon 06-23-2021 Appearance (U) CLEAR Normal CLEAR [facility] Comment on above: Performed By: #### L 600.94445, L600.77802 #### Test performed at: [address] [address] Bilirubin Ql (U) Negative Normal NEGATIVE [facility] Comment on above: Performed By: #### L 600.46888, L600.78740 #### Test performed at: [address] [address] Color (U) YELLOW Normal YELLOW [facility] Comment on above: Performed By: #### L 600.09405, L600.03784 #### Test performed at: [address] [address] Glucose Ql (U) Negative Normal NEGATIVE [facility] Comment on above: Performed By: #### L 600.85214, L600.11867 #### Test performed at: [address] [address] Hemoglobin Ql (U) Negative Normal NEGATIVE [facility] Comment on above: Result Comment: ASCO RBIC ACID IS PRESENT AND MAY INTERFERE WITH THE URINE BLOOD RESULT. Performed By: #### L 600.65600, L600.10940 #### Test performed at: [address] [address] KETONE Negative Normal NEGATIVE [facility] Comment on above: Performed By: #### L 600.44232, L600.57282 #### Test performed at: [address] [address] LEUK ESTERASE Negative Normal NEGATIVE [facility] Comment on above: Performed By: #### L 600.08568, L600.24855 #### Test performed at: [address] [address] Nitrite Ql (U) Negative Normal NEGATIVE [facility] Comment on above: Performed By: #### L 600.77074, L600.64169 #### Test performed at: [place] [address] Protein Ql (U) Negative Normal NEGATIVE [facility] Comment on above: Performed By: #### L 600.28667, L600.82877 #### Test performed at: [place] [address] SPEC GRAV 1.010 Normal 1.005-1.030 [facility] Comment on above: Performed By: #### L 600.03554, L600.19014 #### Test performed at: [place] [address] UA ASC ACID 40 mg/dL Normal [facility] Comment on above: Performed By: #### L 600.50783, L600.82205 #### Test performed at: [place] [address] UA PH 7.0 Normal 5.0-8.0 [facility] Comment on above: Performed By: #### L 600.19458, L600.41009 #### Test performed at: [place] [address] UROBIL NORMAL Normal NORMAL [facility] Comment on above: Performed By: #### L 600.53969, L600.95192 #### Test performed at: [place] [address] CNTHERAPYon 06-27-2019 CNTHERAPY OT/PT/Speech Visit ( PTSHEF) EDWARD CROWDER ([id number]) 1970 M Date Time Provider Department 06/27/19 1:00 PM CRISTINA HODGES (PT) PTSHEF Date Time Provider Department Center 06/27/2019 1:00 PM [id number], ERIN (PT)PTSHEF [facility] [place] Reason for Visit: PT Eval [747] Visit Diagnoses:Radicular syndrome of right leg [M54.10] Lumbosacral spondylosis without myelopathy [M47.817] History of fusion of cervical spine [Z98.1] Numbness and tingling of right hand [R20.0, R20.2] Allergies As of Date: 06/27/2019 (No Known Allergies) Date Reviewed: 06/08/2019 Reviewed by: Estefany Woodson Ma - Fully Assessed Prescriptions as of 06/27/2019 Sig: LISINOPRIL 10 MG TABLET Take 10 mg by mouth once raquel* AMLODIPINE 10 MG TABLET Take 10 mg by mouth once raquel* Progress Notes: Cristina Hodges PT 06/27/2019 1:50 PM Signed Patient arrived for his physical therapy evaluation, but requested for his visit to be rescheduled. Will re-schedule his appointment at his earliest convenience. Cristina Hodges PT Letter Text [facility] PROGRESSon 06-27-2019 PROGRESS HNO ID: [id number] Author: Cristina Hodges Service: ? Author Type: Physical Therapist Type: Progress Notes Filed: 06/27/2019 1:50 PM Note Text: Patient arrived for his physical therapy evaluation, but requested for his visit to be rescheduled. Will re-schedule his appointment at his earliest convenience. [facility]-16-2019 CNOV Office Visit ([facility] ) EDWARD CROWDER ([id number]) 1970 M Date Time Provider Department 06/16/19 1:00 PM VALENTÍN PEDRO During your visit today, we recorded the following information about you: Pulse Weight Height 114/minute 93.1 kg 1.702 m Valentín Pedro MD 06/16/2019 5:13 PM Signed SUBJECTIVE: Mr. Crowder a 49 year old male referred by Tessie Koch NP presents with the complaint of low back pain. Patient reports the date of onset of symptoms as 2006 and describes the location of the pain as lower back (L3, L4, L5) and neck pain. The pain is chronic, cramping and radiates down rt leg with standing, is better with movement, and rated as 6 on a scale of 1-10, with radiation. PAIN RATIO: (back:leg): Back > Leg Patient reports that LBP is increased by standing and relieved by movement. Ambulation distance (before needing to sit): movement heps Standing time (before needing to sit): about 10 minutes OTHER BACK PAIN SYMPTOMS: NIGHT PAIN: sometimes PARESTHESIA: rt leg and both feet POOR SLEEP: sometimes BOWEL/BLADDER INCONTINENCE OR RETENTION: frequent urination ACTIVITY LIMITATIONS: sometimes PREVIOUS TREATMENTS LASTING SIX WEEKS IN THE LAST SIX MONTHS Active conservative therapy lasting 6 weeks in the last six months (see below) 1. Physical therapy: No - has tried in the past did not help 2. Home exercise program after PT: No 3. Occupational therapy: No 4. A physician supervised home exercise program (HEP): No 5. Mill Helper: No Passive conservative therapy lasting 6 weeks in the last six months (see below) 1. Medical devises: No 2. Acupuncture: No 3. Tens unit: No 4. Prescription pain medication: Yes 5. NSAIDS: No OCCUPATIONAL HISTORY: 2006 - got hurt at work HISTORY OF TRAUMA/OVERUSE OF AREA: Yes, Date 2006 REVIEW OF SYSTEMS: GENERAL: Negative for malaise, significant weight loss and fever HEENT: Negative for frequent or significant headaches NECK: Positive for neck swelling RESPIRATORY: possible COPD CARDIOVASCULAR: rt calf swelling sometimew GI: Positive for heartburn : Positive for frquent urination x 1 year on/off BUSINESS DIRECTOR: NA. LMP: n/a. MUSCULOSKELETAL: back pain radiates into rt leg SKIN: Negative for lesions, rash, and itching PSYCH: sleep disturbance sometimes HEMATOLOGY/LYMPHOLOGY Negative for prolonged bleeding, bruising easily or swollen nodes ENDOCRINE: Negative for cold or heat intolerance, polyuria, polydipsia and goiter PAST MEDICAL HISTORY Diagnosis Date - Anxiety - Tobacco use PAST MEDICAL HISTORY Diagnosis Date - Anxiety - Tobacco use PAST SURGICAL HISTORY Procedure Laterality Date - NONE EXAMINATION: [id number]: Scoliosis: No Pelvic Tilt: No Leg Length discrepancy: na LATERAL: Cervical Lordosis: No Thoracic Kyphosis: No Lumbar Lordosis: No RANGE OF MOTION CERVICAL: Flexion: Not Limited Extension: Not Limited Rotation L: Not Limited Rotation R: Not Limited Side Bending R: Not Limited Side Bending L: Not Limited LUMBAR: Flexion: Not Limited Extension: Not Limited Rotation L: Not Limited Rotation R: Not Limited Side Bending R: Not Limited Side Bending L: Not Limited FINGER TO FLOOR DISTANCE: Knee Gait: Normal Toe Walking: Normal Heel Walking: Normal REFLEXES R L Biceps (C6): 1-2+ 1-2+ Triceps (C7): 1-2+ 1-2+ Brachioradiolis (C6): 1-2+ 1-2+ Ankle (S1): 2+ 2+ Knee (L4): 2+ 2+ STRENGTH (0-5): R L Deltoid (AB:C5,6): 5 5 Biceps (Flex:C5,6): 5 5 Wrist Ext.(C6,7): 5 5 Interrosei (C8,T1): 5 5 PSOAS (L2,3): 5 5 Gluteus (L5,S1,2): 5 5 Quadriceps (L3,4): 5 5 EHL (L5): 5 5 Soleus (S1): 5 5 SLR: Seated - Right Negative, Left Negative Piriformis Stretch: Negative Babinski Negative Negative Vibration sensation: WNL Proprioception: WNL PRONE Fem Stretch: Negative HIP: ROM is WNL without pain in flexion, extension and internal rotation. FABERES: Negative DIRK TEST 1) Tenderness: Appropriate 2) Simulation/Axial Loading/ROT: Appropriate 3) Distraction: Seated SLR: Appropriate 4) Reqional Disturbances: Appropriate 5) Overreaction: Appropriate PHYSICAL EXAMINATION: GENERAL APPEARANCE: Well appearing, in no acute distress SKIN: Skin color, texture, turgor normal. No rashes or lesions. HEAD: Normocephalic. No masses, lesions, tenderness or abnormalities EYES: Conjunctivae/corneas clear. Pupils are equally round and reactive to light. Extraocular movements are intact. NECK: Neck supple, no adenopathy; thyroid symmetric, normal size, no bruits. LUNGS: Lungs clear to auscultation, No wheezing or rhonchi HEART: negative. RRR without murmur, gallop, or rubs. No ectopy. ABDOMEN: Abdomen soft, non-tender. Bowel sounds normal. No masses, organomegaly EXTREMITIES: Extremities normal. No deformities, edema, or skin discoloration. Good capillary refill. PULSES: Normal lower extremity pulses. NEURO: Gait normal. Reflexes normal and symmetric. Sensation grossly intact. X-RAYS: remote - see epic and care everywhere IMPRESSION: (M54.10) Radicular syndrome of right leg (primary encounter diagnosis) Comment: Rt LB, thigh to knee worse with standing and walking no issues with sitting (M47.817) Lumbosacral spondylosis without myelopathy Comment: DDD facet OA mention of likely Rt L 4-5 NFS when we saw him in 2014 trace Rt antib wealkness (Z98.1) History of fusion of cervical spine Comment: ACDF in 06/2018 (Anoop Fregoso) diffuse hyper reflexia no clonus (R20.0, R20.2) Numbness and tingling of right hand Comment: + Phale + Tinel Rt hand falls asleep at night needs to shake it in the am (Z72.0) Tobacco use Comment: 1 ppd (F19.10) Drug abuse (HCC) Comment: also + THC / methamphetamine ([facility]) PLAN: Discussed the above findings and potential options with the patient. Suggest: - PT x 4-6 weeks - lumbar MRI if he has persisting sx's - EMG r/o CT on right We can see him after 4-6 weeks of PT. Valentín Pedro MD Referring Provider: SELF [200] Allergies As of Date: 06/16/2019 (No Known Allergies) Date Reviewed: 06/08/2019 Reviewed by: Estefany Woodson Ma - Fully Assessed Reason for Visit: Low Back Pain [126] Neck Pain [135] Primary Visit Diagnosis:Radicular syndrome of right leg [M54.10] Other Visit Diagnoses:Lumbosacral spondylosis without myelopathy [M47.817] History of fusion of cervical spine [Z98.1] Numbness and tingling of right hand [R20.0, R20.2] Tobacco use [Z72.0] Drug abuse (HCC) [F19.10] Order(s):CONSULT TO PHYSICAL THERAPY [9032] Order #: [id number]: 1 FUTURE EMG(NEURO/NI) [20101011] Order #: [id number]: 1 FUTURE Prescriptions as of 06/16/2019 Sig: LISINOPRIL 10 MG TABLET Take 10 mg by mouth once raquel* AMLODIPINE 10 MG TABLET Take 10 mg by mouth once raquel* Medication notes this encounter GABAPENTIN 800 MG TABLET >> Valentín Pedro MD 06/16/2019 1:48 PM sedated forgetful Problem List As Of Date 06/16/2019 Noted Resolved Displacement of lumbar intervertebral disc with*10/24/2014 Lumbosacral spondylosis without myelopathy [M47*10/24/2014 Sprain of lumbar region [S33.5XXA] 10/24/2014 Obesity, Class I, BMI 30-34.9 [E66.9] 06/08/2019 Tobacco use [Z72.0] Drug abuse (HCC) [F19.10] 06/16/2019 Numbness and tingling of right hand [R20.0, R20*06/16/2019 History of fusion of cervical spine [Z98.1] 06/16/2019 Radicular syndrome of right leg [M54.10] 06/16/2019 Medications Discontinued During This Encounter gabapentin (NEURONTIN) 800 mg tablet 06/16/2019 Class: Historical Med Route: ORAL Sig: Take 800 mg by mouth three times daily. Disc: Side Effects Encounter Status:Closed by VALENTÍN PEDRO MD on 06/16/19 Normal [facility] PROGRESSon 06-16-2019 PROGRESS HNO ID: [id number] Author: Valentín Pedro Service: ? Author Type: Physician Type: Progress Notes Filed: 06/16/2019 5:13 PM Note Text: SUBJECTIVE: Mr. Crowder a 49 year old male referred by Tessie Koch NP presents with the complaint of low back pain. Patient reports the date of onset of symptoms as 2006 and describes the location of the pain as lower back (L3, L4, L5) and neck pain. The pain is chronic, cramping and radiates down rt leg with standing, is better with movement, and rated as 6 on a scale of 1-10, with radiation. PAIN RATIO: (back:leg): Back > Leg Patient reports that LBP is increased by standing and relieved by movement. Ambulation distance (before needing to sit): movement heps Standing time (before needing to sit): about 10 minutes OTHER BACK PAIN SYMPTOMS: NIGHT PAIN: sometimes PARESTHESIA: rt leg and both feet POOR SLEEP: sometimes BOWEL/BLADDER INCONTINENCE OR RETENTION: frequent urination ACTIVITY LIMITATIONS: sometimes PREVIOUS TREATMENTS LASTING SIX WEEKS IN THE LAST SIX MONTHS Active conservative therapy lasting 6 weeks in the last six months (see below) 1. Physical therapy: No - has tried in the past did not help 2. Home exercise program after PT: No 3. Occupational therapy: No 4. A physician supervised home exercise program (HEP): No 5. Mill Helper: No Passive conservative therapy lasting 6 weeks in the last six months (see below) 1. Medical devises: No 2. Acupuncture: No 3. Tens unit: No 4. Prescription pain medication: Yes 5. NSAIDS: No OCCUPATIONAL HISTORY: 2006 - got hurt at work HISTORY OF TRAUMA/OVERUSE OF AREA: Yes, Date 2006 REVIEW OF SYSTEMS: GENERAL: Negative for malaise, significant weight loss and fever HEENT: Negative for frequent or significant headaches NECK: Positive for neck swelling RESPIRATORY: possible COPD CARDIOVASCULAR: rt calf swelling sometimew GI: Positive for heartburn : Positive for frquent urination x 1 year on/off BUSINESS DIRECTOR: NA. LMP: n/a. MUSCULOSKELETAL: back pain radiates into rt leg SKIN: Negative for lesions, rash, and itching PSYCH: sleep disturbance sometimes HEMATOLOGY/LYMPHOLOGY Negative for prolonged bleeding, bruising easily or swollen nodes ENDOCRINE: Negative for cold or heat intolerance, polyuria, polydipsia and goiter PAST MEDICAL HISTORY Diagnosis Date - Anxiety - Tobacco use PAST MEDICAL HISTORY Diagnosis Date - Anxiety - Tobacco use PAST SURGICAL HISTORY Procedure Laterality Date - NONE EXAMINATION: [id number]: Scoliosis: No Pelvic Tilt: No Leg Length discrepancy: na LATERAL: Cervical Lordosis: No Thoracic Kyphosis: No Lumbar Lordosis: No RANGE OF MOTION CERVICAL: Flexion: Not Limited Extension: Not Limited Rotation L: Not Limited Rotation R: Not Limited Side Bending R: Not Limited Side Bending L: Not Limited LUMBAR: Flexion: Not Limited Extension: Not Limited Rotation L: Not Limited Rotation R: Not Limited Side Bending R: Not Limited Side Bending L: Not Limited FINGER TO FLOOR DISTANCE: Knee Gait: Normal Toe Walking: Normal Heel Walking: Normal REFLEXES R L Biceps (C6): 1-2+ 1-2+ Triceps (C7): 1-2+ 1-2+ Brachioradiolis (C6): 1-2+ 1-2+ Ankle (S1): 2+ 2+ Knee (L4): 2+ 2+ STRENGTH (0-5): R L Deltoid (AB:C5,6): 5 5 Biceps (Flex:C5,6): 5 5 Wrist Ext.(C6,7): 5 5 Interrosei (C8,T1): 5 5 PSOAS (L2,3): 5 5 Gluteus (L5,S1,2): 5 5 Quadriceps (L3,4): 5 5 EHL (L5): 5 5 Soleus (S1): 5 5 SLR: Seated - Right Negative, Left Negative Piriformis Stretch: Negative Babinski Negative Negative Vibration sensation: WNL Proprioception: WNL PRONE Fem Stretch: Negative HIP: ROM is WNL without pain in flexion, extension and internal rotation. FABERES: Negative DIRK TEST 1) Tenderness: Appropriate 2) Simulation/Axial Loading/ROT: Appropriate 3) Distraction: Seated SLR: Appropriate 4) Reqional Disturbances: Appropriate 5) Overreaction: Appropriate PHYSICAL EXAMINATION: GENERAL APPEARANCE: Well appearing, in no acute distress SKIN: Skin color, texture, turgor normal. No rashes or lesions. HEAD: Normocephalic. No masses, lesions, tenderness or abnormalities EYES: Conjunctivae/corneas clear. Pupils are equally round and reactive to light. Extraocular movements are intact. NECK: Neck supple, no adenopathy; thyroid symmetric, normal size, no bruits. LUNGS: Lungs clear to auscultation, No wheezing or rhonchi HEART: negative. RRR without murmur, gallop, or rubs. No ectopy. ABDOMEN: Abdomen soft, non-tender. Bowel sounds normal. No masses, organomegaly EXTREMITIES: Extremities normal. No deformities, edema, or skin discoloration. Good capillary refill. PULSES: Normal lower extremity pulses. NEURO: Gait normal. Reflexes normal and symmetric. Sensation grossly intact. X-RAYS: remote - see epic and care everywhere IMPRESSION: (M54.10) Radicular syndrome of right leg (primary encounter diagnosis) Comment: Rt LB, thigh to knee worse with standing and walking no issues with sitting (M47.817) Lumbosacral spondylosis without myelopathy Comment: DDD facet OA mention of likely Rt L 4-5 NFS when we saw him in 2014 trace Rt antib wealkness (Z98.1) History of fusion of cervical spine Comment: ACDF in 06/2018 (Anoop Fregoso) diffuse hyper reflexia no clonus (R20.0, R20.2) Numbness and tingling of right hand Comment: + Phale + Tinel Rt hand falls asleep at night needs to shake it in the am (Z72.0) Tobacco use Comment: 1 ppd (F19.10) Drug abuse ([facility]) Comment: also [facility] PLAN: Discussed the above findings and potential options with the patient. Suggest: - PT x 4-6 weeks - lumbar MRI if he has persisting sx's - EMG r/o CT on right We can see him after 4-6 weeks of PT. Valentín Pedro MD [facility] CNOVon 06-08-2019 CNOV Office Visit ([facility] ) EDWARD CROWDER ([id number]) 1970 M Date Time Provider Department 06/08/19 1:00 PM TESSIE KOCH ([facility]) [facility] During your visit today, we recorded the following information about you: Pulse Blood pressure Weight Height 115/minute 125/98 89.8 kg 1.702 m Tessie Koch APRN.CNP 06/10/2019 12:06 PM Signed Subjective HPI Edward Crowder is a 49 year old male who presents requesting second opinion re: COPD. He was seen at outside ER about 1 week ago, states he was told he had COPD based on CXR. He states no additional testing or medications ordered. Patient is a current smoker, does get short of breath at times. He declines flu and pneumonia vaccines today. Review of Systems Respiratory: Positive for shortness of breath. Negative for cough, hemoptysis, sputum production and wheezing. Objective Physical Exam Constitutional: He is well-developed, well-nourished, and in no distress. Cardiovascular: Normal rate, regular rhythm and normal heart sounds. Pulmonary/Chest: Effort normal and breath sounds normal. Vitals reviewed. ASSESSMENT/PLAN: 1. Chronic obstructive pulmonary disease, unspecified COPD type (HCC) - ICD9: 496, ICD10: J44.9 (primary diagnosis) - Patient to sign release of records form to get outside ER records - CONSULT TO PULMONARY MEDICINE 2. Tobacco use - ICD9: 305.1, ICD10: Z72.0 - Cessation encouraged. - Physiologic and physical aspects of tobacco addiction as well as strategies for quitting were discussed. - Counseling was given focusing on the harmful effects of this addiction especially given the patient's medical condition(s) which will be worsened because of the chemicals in tobacco. - CONSULT TO PULMONARY MEDICINE Tessie Koch APRN.HEIDY Referring Provider: SELF [200] Allergies As of Date: 06/08/2019 (No Known Allergies) Date Reviewed: 06/08/2019 Reviewed by: Estefany Woodson Ma - Fully Assessed Reason for Visit: Second Opinion [501] Cmt: COPD Primary Visit Diagnosis:Chronic obstructive pulmonary disease, unspecified COPD type (HCC) [J44.9] Other Visit Diagnosis:Tobacco use [Z72.0] Order(s):CONSULT TO PULMONARY MEDICINE [8872258] Order #: [id number]: 1 Prescriptions as of 06/08/2019 Sig: GABAPENTIN 800 MG TABLET Take 800 mg by mouth three ti* LISINOPRIL 10 MG TABLET Take 10 mg by mouth once raquel* AMLODIPINE 10 MG TABLET Take 10 mg by mouth once raquel* Problem List As Of Date 06/08/2019 Noted Resolved Displacement of lumbar intervertebral disc with*10/24/2014 Lumbosacral spondylosis without myelopathy [M47*10/24/2014 Sprain of lumbar region [S33.5XXA] 10/24/2014 Obesity, Class I, BMI 30-34.9 [E66.9] 06/08/2019 Tobacco use [Z72.0] Medications Discontinued During This Encounter gabapentin (NEURONTIN) 300 mg capsule 150 * 1 01/01/2015 06/08/2019 Sig: Take 3 caps at bedtime, 1 cap in am and 1 cap @ noon as tolerated. Disc: Dosage adjustment traMADol (ULTRAM) 50 mg tablet 90 t* 0 01/01/2015 06/08/2019 Class: Call Rx Route: ORAL Sig: Take 1 tablet by mouth every 8 hours as needed. Disc: Course of therapy completed Encounter Status:Closed by TESSIE KOCH CNP on 06/10/19 [facility] PROGRESSon 06-08-2019 PROGRESS HNO ID: [id number] Author: Tessie (Heidy) August Service: ? Author Type: Nurse Practitioner Type: Progress Notes Filed: 06/10/2019 12:06 PM Note Text: Subjective HPI Edward Crowder is a 49 year old male who presents requesting second opinion re: COPD. He was seen at outside ER about 1 week ago, states he was told he had COPD based on CXR. He states no additional testing or medications ordered. Patient is a current smoker, does get short of breath at times. He declines flu and pneumonia vaccines today. Review of Systems Respiratory: Positive for shortness of breath. Negative for cough, hemoptysis, sputum production and wheezing. Objective Physical Exam Constitutional: He is well-developed, well-nourished, and in no distress. Cardiovascular: Normal rate, regular rhythm and normal heart sounds. Pulmonary/Chest: Effort normal and breath sounds normal. Vitals reviewed. ASSESSMENT/PLAN: 1. Chronic obstructive pulmonary disease, unspecified COPD type (HCC) - ICD9: 496, ICD10: J44.9 (primary diagnosis) - Patient to sign release of records form to get outside ER records - CONSULT TO PULMONARY MEDICINE 2. Tobacco use - ICD9: 305.1, ICD10: Z72.0 - Cessation encouraged. - Physiologic and physical aspects of tobacco addiction as well as strategies for quitting were discussed. - Counseling was given focusing on the harmful effects of this addiction especially given the patient's medical condition(s) which will be worsened because of the chemicals in tobacco. - CONSULT TO PULMONARY MEDICINE Tessie Koch APRN.FLIGHT TECHNICIAN Normal [facility] [place] [facility] Metabolic Panelon 04-13 Anion gap [Moles/Vol] 16 mmol/L [place], [place] Calcium [Mass/Vol] 9.3 mg/dL 8.5 - 9.9 mg/dL [place] Chloride [Moles/Vol] 94 mmol/L [place], [place] CO2 [Moles/Vol] 22 mmol/L [place] Creatinine [Mass/Vol] 0.78 mg/dL 0.7 - 1.2 mg/d L [place], [place] GFR >60.0 >60 [place] Comment on above: >60 mL/min/1.73m2 EG FR, calc. for ages 18 and older using the MDRD formula (not corrected for weight), is valid for stable renal function. GFR Non- >60.0 >60 [place] Comment on above: >60 mL/min/1.73m2 EG FR, calc. for ages 18 and older using the MDRD formula (not corrected for weight), is valid for stable renal function. Glucose [Mass/Vol] 98 mg/dL 70 - 99 mg/dL [place], [place] Interpretation and review of laboratory results Abnormal [place] Potassium [Moles/Vol] 4.1 mmol/L [place] Sodium [Moles/Vol] 132 mmol/L [place] Urea nitrogen [Mass/Vol] 13 mg/dL 6 - 20 mg/d [place] CBC Auto Differentialon 04-13 Basophils (Bld) [#/Vol] 0.0 10*3/uL 0 - 0.2 K/u L [place] Basophils/100 WBC (Bld) 0.3 % [place] Eosinophils (Bld) [#/Vol] 0.0 10*3/uL 0 - 0.7 K /uL [place] Eosinophils/100 WBC (Bld) 0.1 % [place] Erythrocyte distribution wid th (RBC) [Ratio] 14.2 % 11.5 - 14.5 % [place] Hematocrit (Bld) [Volume fraction] 43.1 % 42 - 52 % [place] Hemoglobin (Bld) [Mass/Vol] 15.0 g/dL 14 - 18 g/dL [place] Interpretation and review of laboratory results Abnormal [place] Lymphocytes (Bld) [#/Vol] 1.3 10*3/uL 1 - 4.8 K /uL [place] Lymphocytes/100 WBC (Bld) 10.6 % [place] MCH (RBC) [Entitic mass] 31.2 pg 27 - 31.3 p g [place] MCHC (RBC) [Mass/Vol] 34.7 % 33 - 37 % [place] MCV (RBC) [Entitic vol] 89.8 fL 80 - 100 fL [place] Monocytes (Bld) [#/Vol] 0.9 10*3/uL [place] 0.2 - 0.8 K /uL [place] Monocytes/100 WBC (Bld) 7.9 % [place] Neutrophils Absolute 9.6 K/uL [place] 1.4 - 6.5 K/uL [place] Neutrophils/100 WBC (Bld) 81.1 % [place] Platelets (Bld) [#/Vol] 350 10*3/uL 130 - 400 K /uL [place] RBC (Bld) [#/Vol] 4.81 10*6/uL [place] WBC (Bld) [#/Vol] 11.8 10*3/uL High 4.8 - 10.8 K/uL [place] Troponinon 05-02-2019 Troponin I.cardiac [Mass/Vol] ng/mL 0 - 0. 01 ng/mL [facility] [place], [place] Comment on above: Methodology by Ritu Haywood Vital Signs Date Time Vital Sign Value Performing Clinician Facility 06-02-2023 07:30-0500 Body temperature 97.7 [degF] [facility] Work [facility] 06-02-2023 07:30-0500 Diastolic blood pressure 96 mm[Hg] [facility] Work Phone: [facility] 06-02-2023 07:30-0500 Heart rate 104 /min [facility] Work Phone: [facility] 06-02-2023 07:30-0500 Respiratory rate 18 /min [facility] Work Phone: [facility] 06-02-2023 07:30-0500 SaO2% (BldA) [Mass fraction] 97 % [facility] Work Phone: [facility] 06-02-2023 07:30-0500 Systolic blood pressure 138 mm[Hg] [facility] Work Phone: [facility] 06-01-2023 09:00-0500 Body weight 100.24 kg [facility] Work Phone: [facility] 05-28-2023 14:05-0500 Body height 170.18 cm [facility] Work Phone: [facility] 04-21-2023 12:24-0400 Body temperature 98.1 [degF] [facility] Work Phone: [facility] 04-21-2023 12:24-0400 SaO2% (BldA) [Mass fraction] 96 % [facility] Work Phone: [facility] 04-21-2023 07:30-0400 Diastolic blood pressure 96 mm[Hg] [facility] Work Phone: [facility] 04-21-2023 07:30-0400 Heart rate 91 /min [facility] Work Phone: [facility] 04-21-2023 07:30-0400 Systolic blood pressure 147 mm[Hg] [facility] Work Phone: [facility] 04-20-2023 20:03-0400 Respiratory rate 18 /min [facility] Work [facility] 04-20-2023 09:00-0400 Body weight 100.26 kg [facility] Work Phone: [facility] 04-16-2023 12:36-0400 Body height 170.18 cm [facility] Work [facility]: [facility] 02-17-2023 15:01-0400 Body temperature 96.3 [degF] [facility] Work Phone: [facility] 02-17-2023 15:01-0400 Diastolic blood pressure 106 mm[Hg] [facility] Work Phone: [facility] 02-17-2023 15:01-0400 Heart rate 113 /min [facility] Work Phone: [facility] 02-17-2023 15:01-0400 Respiratory rate 18 /min [facility] Work Phone: [facility] 02-17-2023 15:01-0400 SaO2% (BldA) [Mass fraction] 98 % [facility] Work Phone: [facility] 02-17-2023 15:01-0400 Systolic blood pressure 149 mm[Hg] [facility] Work Phone: [facility] 02-16-2023 09:00-0400 Body weight 89.5 kg [facility] Work Phone: [facility] 02-12-2023 15:18-0400 Body height 170.18 cm [facility] Work [facility]: [facility] 02-11-2023 16:48-0400 Diastolic blood pressure 74 mm[Hg] [facility] Work Phone: [facility] 02-11-2023 16:48-0400 Heart rate 100 /min [facility] Work Phone: [facility] 02-11-2023 16:48-0400 Respiratory rate 18 /min [facility] Work Phone: [facility] 02-11-2023 16:48-0400 SaO2% (BldA) [Mass fraction] 99 % [facility] Work Phone: [facility] 02-11-2023 16:48-0400 Systolic blood pressure 129 mm[Hg] [facility] Work Phone: [facility] 02-11-2023 13:22-0400 Body height 170.18 cm [facility] Work Phone: [facility] 02-11-2023 13:22-0400 Body temperature 98.7 [degF] [facility] Work Phone: [facility] 02-11-2023 13:22-0400 Body weight 0.09 kg [facility] [employer] Work Phone: [facility] 09-24-2022 06:52-0400 Body temperature 97.9 [degF] Trae [facility] Work Phone: [facility] [employer] Bur[employer] 09-24-2022 06:52-0400 Diastolic blood pressure 78 mm[Hg] Trae [employer] Work Phone: [facility] [employer] 09-24-2022 06:52-0400 Heart rate 73 /min Trae [employer] Work Phone: [facility] [employer] 09-24-2022 06:52-0400 Respiratory rate 16 /min Trae [employer] Work Phone: [facility] [employer] 09-24-2022 06:52-0400 SaO2% (BldA) [Mass fraction] 94 % Trae [employer] Work Phone: [facility] [employer] 09-24-2022 06:52-0400 Systolic blood pressure 107 mm[Hg] Trae Spasic Work Phone: [facility] 09-23-2022 12:13-0400 Body height 170.2 cm Trae [employer] Work Phone: [facility] 09-23-2022 12:13-0400 Body mass index (BMI) [Ratio] 31.32 kg/m2 [employer]e [employer] Work Phone: [facility] 09-23-2022 12:13-0400 Body weight 90.72 kg Trae [employer] Work Phone: [facility] 09-22-2022 08:57-0400 Body weight 87 kg Services [employer] Work Phone: [facility] 09-22-2022 07:26-0400 Body temperature 97.8 [degF] [facility] Work [facility]: [facility] 09-22-2022 07:26-0400 Diastolic blood pressure 87 mm[Hg] [facility] Work Phone: [facility] 09-22-2022 07:26-0400 Heart rate 64 /min [facility] [employer] Work Phone: [facility] 09-22-2022 07:26-0400 Respiratory rate 16 /min [facility] [employer] Work Phone: [facility] 09-22-2022 07:26-0400 SaO2% (BldA) [Mass fraction] 99 % [facility] Work Phone: [facility] 09-22-2022 07:26-0400 Systolic blood pressure 132 mm[Hg] [facility] Work Phone: [facility] 09-17-2022 09:15-0500 Body height 170.18 cm [facility] Work Phone: [facility] 09-09-2022 19:25-0500 Diastolic blood pressure 89 mm[Hg] [facility] [employer] Work Phone: [facility] 09-09-2022 19:25-0500 Heart rate 99 /min [facility] Work Phone: [facility] 09-09-2022 19:25-0500 Respiratory rate 18 /min [facility] Work Phone: [facility] 09-09-2022 19:25-0500 SaO2% (BldA) [Mass fraction] 99 % [facility] Work Phone: [facility] 09-09-2022 19:25-0500 Systolic blood pressure 149 mm[Hg] [facility] Work Phone: [facility] 09-09-2022 16:19-0500 Body height 170.18 cm [facility] Work Phone: [facility] 09-09-2022 16:19-0500 Body temperature 98.1 [degF] [facility] Work Phone: [facility] 09-09-2022 16:19-0500 Body weight 86.18 kg [facility] Work Phone: [facility] 08-25-2022 14:30-0500 Diastolic blood pressure 96 mm[Hg] [facility] Work Phone: [facility] 08-25-2022 14:30-0500 Heart rate 105 /min [facility] Work Phone: [facility] 08-25-2022 14:30-0500 Respiratory rate 18 /min [facility] Work Phone: [facility] 08-25-2022 14:30-0500 SaO2% (BldA) [Mass fraction] 98 % [facility] Work Phone: [facility] 08-25-2022 14:30-0500 Systolic blood pressure 134 mm[Hg] [facility] Work Phone: [facility] 08-25-2022 01:00-0500 Body temperature 97.7 [degF] [facility] Work [facility]: [facility] 08-24-2022 22:38-0500 Body height 170.18 cm [facility] Work Phone: [facility] 08-24-2022 22:38-0500 Body weight 90.71 kg [facility] Work Phone: [facility] 08-17-2022 10:07-0500 Body temperature 98.6 [degF] No Pcp Required [facility] 08-17-2022 10:07-0500 Diastolic blood pressure 96 mm[Hg] No Pcp Required [facility] 08-17-2022 10:07-0500 Heart rate 113 /min No Pcp Required [facility] 08-17-2022 10:07-0500 SaO2% (BldA) [Mass fraction] 97 % No Pcp Required [facility] 08-17-2022 10:07-0500 Systolic blood pressure 138 mm[Hg] No Pcp Required [facility] 07-27-2022 19:36-0500 Body temperature 97.7 [degF] Iveth Contreras MD Work Phone: [facility] 07-27-2022 19:36-0500 Diastolic blood pressure 67 mm[Hg] Iveth Contreras MD Work Phone: [facility] 07-27-2022 19:36-0500 Heart rate 80 /min Iveth Contreras MD Work Phone: [facility] 07-27-2022 19:36-0500 Respiratory rate 16 /min Iveth Contreras MD Work Phone: [facility] 07-27-2022 19:36-0500 Systolic blood pressure 91 mm[Hg] Iveth Contreras MD Work Phone: [facility] 07-27-2022 12:14-0500 SaO2% (BldA) [Mass fraction] 98 % Iveth Contreras MD Work Phone: [facility] 07-27-2022 08:26-0500 Body mass index (BMI) [Ratio] 26.63 kg/m2 Iveth Contreras MD Work Phone: [facility] 07-27-2022 08:26-0500 Body weight 77.11 kg Iveth Contreras MD Work Phone: [facility] 07-17-2022 23:44-0500 Diastolic blood pressure 82 mm[Hg] [facility] Work Phone: [facility] 07-17-2022 23:44-0500 Heart rate 78 /min [facility] Work Phone: [facility] 07-17-2022 23:44-0500 Respiratory rate 18 /min [facility] Work Phone: [facility] 07-17-2022 23:44-0500 SaO2% (BldA) [Mass fraction] 96 % [facility] Work Phone: [facility] 07-17-2022 23:44-0500 Systolic blood pressure 120 mm[Hg] [facility] Work Phone: [facility] 07-17-2022 14:19-0500 Body temperature 98.3 [degF] [facility]: [facility] 07-17-2022 14:05-0500 Body height 165.1 cm [facility] Work Phone: [facility] 07-17-2022 14:05-0500 Body weight 90.71 kg [facility] Work Phone: [facility] 07-16-2022 23:02-0500 Diastolic blood pressure 88 mm[Hg] [facility] Work Phone: [facility] 07-16-2022 23:02-0500 Heart rate 97 /min [facility] Work Phone: [facility] 07-16-2022 23:02-0500 Respiratory rate 18 /min [facility] Work Phone: [facility] 07-16-2022 23:02-0500 SaO2% (BldA) [Mass fraction] 99 % [facility] Work Phone: [facility] 07-16-2022 23:02-0500 Systolic blood pressure 146 mm[Hg] [facility] Work Phone: [facility] 07-16-2022 18:13-0500 Body height 170.18 cm [facility] Work Phone: [facility] 07-16-2022 18:13-0500 Body temperature 98.7 [degF] [facility] Work Phone: [facility] 07-16-2022 18:13-0500 Body weight 90.71 kg [facility] Work Phone: [facility] 07-15-2022 07:30-0500 Body temperature 97.6 [degF] [facility] Work Phone: [facility] 07-15-2022 07:30-0500 Diastolic blood pressure 83 mm[Hg] [facility] Work Phone: [facility] 07-15-2022 07:30-0500 Heart rate 81 /min [facility] Work Phone: [facility] 07-15-2022 07:30-0500 SaO2% (BldA) [Mass fraction] 99 % [facility] Work Phone: [facility] 07-15-2022 07:30-0500 Systolic blood pressure 121 mm[Hg] [facility] Work Phone: [facility] 07-14-2022 20:06-0500 Respiratory rate 16 /min [facility] Work Phone: [facility] 07-14-2022 09:00-0500 Body weight 91.17 kg [facility] Work Phone: [facility] 07-11-2022 16:49-0500 Body height 170.18 cm [facility] Work Phone: [facility] 07-11-2022 12:53-0500 Body height 170.18 cm [facility] Work Phone: [facility] 07-11-2022 12:00-0500 Body temperature 98.4 [degF] [facility] Work Phone: [facility] 07-11-2022 12:00-0500 Diastolic blood pressure 71 mm[Hg] [facility] Work [facility]: [facility] 07-11-2022 12:00-0500 Heart rate 81 /min [facility] Work Phone: [facility] 07-11-2022 12:00-0500 Respiratory rate 20 /min [facility] Work Phone: [facility] 07-11-2022 12:00-0500 SaO2% (BldA) [Mass fraction] 95 % [facility] Work Phone: [facility] 07-11-2022 12:00-0500 Systolic blood pressure 137 mm[Hg] [facility] Work Phone: [facility] 07-11-2022 06:00-0500 Body weight 88 kg [facility] Work Phone: [facility] 07-10-2022 23:00-0500 Body temperature 97.6 [degF] [facility] Work Phone: [facility] 07-10-2022 23:00-0500 Diastolic blood pressure 64 mm[Hg] [facility] Work Phone: [facility] 07-10-2022 23:00-0500 Heart rate 88 /min [facility] Work Phone: [facility] 07-10-2022 23:00-0500 Respiratory rate 22 /min [facility] Work Phone: [facility] 07-10-2022 23:00-0500 SaO2% (BldA) [Mass fraction] 98 % [facility] Work Phone: [facility] 07-10-2022 23:00-0500 Systolic blood pressure 118 mm[Hg] [facility] Work Phone: [facility] 07-10-2022 20:06-0500 Inhaled oxygen flow rate 3 L/min [facility] Work Phone: [facility] 07-10-2022 14:02-0500 Body height 170.18 cm [facility] Work Phone: [facility] 07-10-2022 14:02-0500 Body weight 91.45 kg [facility] Work Phone: [facility] 07-09-2022 17:32-0500 Diastolic blood pressure 71 mm[Hg] [facility] Work Phone: [facility] 07-09-2022 17:32-0500 Heart rate 87 /min [facility] Work Phone: [facility] 07-09-2022 17:32-0500 Respiratory rate 16 /min [facility] Work Phone: [facility] 07-09-2022 17:32-0500 SaO2% (BldA) [Mass fraction] 99 % [facility] Work Phone: [facility] 07-09-2022 17:32-0500 Systolic blood pressure 137 mm[Hg] [facility] Work Phone: [facility] 07-09-2022 12:49-0500 Body height 170.18 cm [facility] Work Phone: [facility] 07-09-2022 12:49-0500 Body temperature 97.6 [degF] [facility] Work Phone: [facility] 07-09-2022 12:49-0500 Body weight 94.75 kg [facility] Work Phone: [facility] 06-22-2022 10:44-0500 Body temperature 97.7 [degF] No Pcp Required [facility] 06-22-2022 10:44-0500 Diastolic blood pressure 70 mm[Hg] No Pcp Required [facility] 06-22-2022 10:44-0500 Heart rate 76 /min No Pcp Required [facility] 06-22-2022 10:44-0500 Respiratory rate 18 /min No Pcp Required [facility] 06-22-2022 10:44-0500 SaO2% (BldA) [Mass fraction] 97 % No Pcp Required [facility] 06-22-2022 10:44-0500 Systolic blood pressure 113 mm[Hg] No Pcp Required [facility] 02-12-2022 10:34-0400 Body temperature 97.88 [degF] No Pcp Required [facility] 02-12-2022 10:34-0400 Diastolic blood pressure 77 mm[Hg] No Pcp Required [facility] 02-12-2022 10:34-0400 Heart rate 76 /min No Pcp Required [facility] 02-12-2022 10:34-0400 Respiratory rate 18 /min No Pcp Required [facility] 02-12-2022 10:34-0400 Systolic blood pressure 120 mm[Hg] No Pcp Required [facility] 01-23-2022 05:49-0400 Diastolic blood pressure 74 mm[Hg] Keating MD Work Phone: [facility] 01-23-2022 05:49-0400 Heart rate 69 /min Keating MD Work Phone: [facility] 01-23-2022 05:49-0400 Respiratory rate 18 /min Keating MD Work Phone: [facility] 01-23-2022 05:49-0400 SaO2% (BldA) [Mass fraction] 99 % Keating MD Work Phone: [facility] 01-23-2022 05:49-0400 Systolic blood pressure 112 mm[Hg] Keating MD Work Phone: [facility] 01-21-2022 17:45-0400 Body temperature 97.5 [degF] Keating MD Work Phone: [facility] 07-08-2021 17:09-0500 Heart rate 98 /min [facility] Work Phone: [facility] [employer] 07-08-2021 17:05-0500 Diastolic blood pressure 88 mm[Hg] [employer] Work Phone: [facility] [employer] 07-08-2021 17:05-0500 Systolic blood pressure 152 mm[Hg] [employer] Work Phone: [facility] [employer] 07-08-2021 14:28-0500 Body height 170.2 cm [employer] Work Phone: [facility] [employer] 07-08-2021 14:28-0500 Body mass index (BMI) [Ratio] 26.63 kg/m2 [employer] Work Phone: [facility] [employer] 07-08-2021 14:28-0500 Body temperature 99.39 [degF] [employer] Work Phone: [facility] [employer] 07-08-2021 14:28-0500 Body weight 77.11 kg [employer] [facility] Work Phone: [facility] [employer] 07-08-2021 14:28-0500 Respiratory rate 16 /min [employer] Work Phone: [facility] [employer] 07-08-2021 14:28-0500 SaO2% (BldA) [Mass fraction] 96 % [employer] Work Phone: [facility] 07-04-2021 02:51-0500 Body temperature 98.24 [degF] Pcp Unknown [facility] 07-04-2021 02:51-0500 Diastolic blood pressure 68 mm[Hg] Pcp Unknown [facility] 07-04-2021 02:51-0500 Heart rate 80 /min Pcp Unknown [facility] 07-04-2021 02:51-0500 Respiratory rate 16 /min Pcp Unknown [facility] 07-04-2021 02:51-0500 SaO2% (BldA) [Mass fraction] 100 % Pcp Unknown [facility] 07-04-2021 02:51-0500 Systolic blood pressure 106 mm[Hg] Pcp Unknown [facility] 07-02-2021 09:00-0500 Heart rate 110 /min Pcp Unknown [facility] 07-02-2021 09:00-0500 Respiratory rate 18 /min Pcp Unknown [facility] 07-02-2021 09:00-0500 SaO2% (BldA) [Mass fraction] 100 % Pcp Unknown [facility] 07-02-2021 08:00-0500 Diastolic blood pressure 100 mm[Hg] Pcp Unknown [facility] 07-02-2021 08:00-0500 Systolic blood pressure 171 mm[Hg] Pcp Unknown [facility] 07-02-2021 05:27-0500 Body temperature 97.34 [degF] Pcp Unknown [facility] 07-01-2021 06:07-0500 Body temperature 98.1 [degF] Edin Romito DO Work Phone: [facility] 07-01-2021 06:07-0500 Diastolic blood pressure 76 mm[Hg] Edin Romito DO Work Phone: [facility] 07-01-2021 06:07-0500 Heart rate 95 /min Edin Romito DO Work Phone: [facility] 07-01-2021 06:07-0500 Respiratory rate 16 /min Edin Romito DO Work Phone: [facility] 07-01-2021 06:07-0500 SaO2% (BldA) [Mass fraction] 99 % Edin Romito DO Work Phone: [facility] 07-01-2021 06:07-0500 Systolic blood pressure 129 mm[Hg] Edin Romito DO Work Phone: [employer] 06-28-2021 10:49-0500 Body height 170.2 cm Edin Romito DO Work Phone: [facility] [employer] 06-28-2021 10:49-0500 Body mass index (BMI) [Ratio] 27.41 kg/m2 Edin Romito DO Work Phone: [facility] [employer] 06-28-2021 10:49-0500 Body weight 79.38 kg Edin Romito DO Work Phone: [email or web address] 05-02-2019 14:00-0400 Respiratory Rate 17 /min [facility] [place] [place] 05-02-2019 03:30-0400 BP Diastolic 97 mm[Hg] [facility] [email or web address] [place] 05-02-2019 03:30-0400 BP Systolic 147 mm[Hg] [facility] [email or web address] [place] 05-02-2019 03:30-0400 Pulse (Heart Rate) 86 /min Koffi Jon [employer] [facility] [place] 05-02-2019 01:38-0400 Pulse Oximetry 100 % [facility]offi [email or web address], [place] 05-02-2019 00:52-0400 BMI (Body Mass Index) 28.19 kg/m2 Koffi Jon [facility] [place] 05-02-2019 00:52-0400 Body Temperature 98.1 [degF] Koffi Jon [employer] [place] 05-02-2019 00:52-0400 Body weight 81.65 kg Koffi Nixon [email or web address], [place] 05-02-2019 00:52-0400 Height 170.2 cm Koffi [email or web address], [place] Encounters Encounter Date Encounter Type Care Provider Facility Start: 2023 End: 06-02-2023 Evaluation and management of inpatient Naeem Zahira Facility:[facility] Start: 2023 End: 06-02-2023 Evaluation and management of inpatient [facility] Work Phone: [facility] Work Phone: Start: 05-17-2023 End: 05-18-2023 ambulatory [facility] Start: 05-17-2023 End: 05-17-2023 Subsequent hospital visit by physician Tabby Caraballo [facility] [facility] Start: 04-28-2023 End: 05-01-2023 Evaluation and management of inpatient TRAE HOLLAND [facility] Start: 04-28-2023 End: 04-28-2023 Emergency department patient visit TRAE HOLLAND [facility] Start: 04-27-2023 End: 04-27-2023 Emergency department patient visit TRAE HOLLAND [facility] Start: 04-23-2023 Admission to establishment Kate Chandler LPC [facility] Start: 04-23-2023 ambulatory Kate Chandler LPC [facility] Comment on above: Psychosis Start: 04-23-2023 End: 04-27-2023 Evaluation and management of inpatient MERARI DO Facility:[facility] Start: 04-15-2023 End: 04-21-2023 Evaluation and management of inpatient Naeem Zahira Facility:[facility] Start: 04-15-2023 End: 04-21-2023 Evaluation and management of inpatient Services [facility] Work Phone: [facility] [employer] Work Phone: Start: 04-05-2023 End: 04-06-2023 Emergency department patient visit Ms. Trae Holland [facility] Facility:[id number] Start: 03-23-2023 End: 03-24-2023 [facility] Start: 03-07-2023 End: 03-17-2023 Evaluation and management of inpatient PARSHOTAM Selena DURAN Facility:[facility] Start: 03-06-2023 Emergency department patient visit PARSHOTAM C DURAN Facility:[facility] Start: 03-06-2023 Admission to establishment [facility]e [facility] Comment on above: Psychiatric Problem; Request Inpatient Admission To Behavioral Health Service Start: 02-11-2023 End: 02-17-2023 Evaluation and management of inpatient Services [facility] Facility:[facility] Start: 02-11-2023 End: 02-17-2023 Evaluation and management of inpatient Services [facility] Work Phone: [facility] [employer] Work Phone: Start: 09-23-2022 End: 09-24-2022 Emergency department patient visit TRAE SHEEHANSelena [facility] Start: 09-23-2022 End: 09-24-2022 Emergency department patient visit Trae Brantley Work Phone: [facility] ED Comment on above: Bipolar 1 disorder ( HCC) (Primary Dx) Start: 09-09-2022 End: 09-22-2022 Evaluation and management of inpatient Services [facility] Work Phone: [facility]-[address] [place] [address] Work Phone: Start: 08-25-2022 End: 08-25-2022 Emergency department patient visit Services [facility] Facility:[facility] Start: 08-24-2022 End: 08-25-2022 Emergency department patient visit Services [facility] Work Phone: [facility]-Emergency Room Work Phone: Start: 08-17-2022 End: 08-18-2022 Evaluation and management of inpatient Jin Azul Monon 5 [facility] 560 01 Start: 08-13-2022 End: 08-17-2022 Evaluation and management of inpatient Pt States None [facility] Facility:[id number] Start: 08-13-2022 End: 08-17-2022 Evaluation and management of inpatient Diaz B Jackson [facility] 10 [facility] 1005 01 Start: 08-02-2022 End: 08-12-2022 Evaluation and management of inpatient TRAE Connell [facility] Start: 07-27-2022 End: 07-27-2022 Emergency department patient visit TRAE Connell [facility] Start: 07-27-2022 End: 07-27-2022 Emergency department patient visit Iveth Contreras MD Work Phone: [facility] ED Comment on above: Psychosis, unspecifi ed psychosis type (HCC) (Primary Dx) Start: 07-17-2022 End: 07-18-2022 Emergency department patient visit Services [facility] Work Phone: [facility]gency [facility] Work Phone: Start: 07-16-2022 End: 07-17-2022 Emergency department patient visit Services [facility] Facility:[facility] Start: 07-16-2022 End: 07-16-2022 Emergency department patient visit Services [facility] Work Phone: [facility]gency [facility] Work Phone: Start: 07-11-2022 End: 07-15-2022 Evaluation and management of inpatient Services [facility] Facility:[facility] Start: 07-11-2022 End: 07-15-2022 Evaluation and management of inpatient Services [facility] Work Phone: [facility] [place] Work Phone: Start: 07-10-2022 End: 07-11-2022 ambulatory Services [facility] Facility:[facility] Start: 07-10-2022 End: 07-11-2022 Evaluation and management of inpatient Services [facility] Work Phone: [facility] Work Phone: Start: 07-09-2022 End: 07-09-2022 Emergency department patient visit Services [facility] Facility:[facility] Start: 07-09-2022 End: 07-09-2022 Emergency department patient visit Services [facility] Work Phone: [facility]Emergency [facility] Work Phone: Start: 06-30-2022 End: 07-01-2022 Emergency department patient visit No Pcp Required Monon ED 06 Start: 06-16-2022 End: 06-17-2022 Emergency department patient visit Pt States None PCP Facility:[id number] Start: 06-16-2022 End: 06-22-2022 Evaluation and management of inpatient Jin Azul Herrera 5 [facility] 566 02 Start: 02-06-2022 End: 02-12-2022 Evaluation and management of inpatient Krystyna Reagan 3W Start: 02-05-2022 End: 02-05-2022 Emergency department patient visit Lele Herrera ED 12 Start: 01-21-2022 End: 01-23-2022 Emergency department patient visit ROSE [facility] Start: 01-20-2022 End: 01-23-2022 Emergency department patient visit Rose MD Work Phone: [facility] ED Comment on above: Psychosis, unspecifi ed psychosis type (HCC) (Primary Dx) Start: 07-11-2021 ambulatory UNKNOWN PROVIDER Facili ty:[facility] Start: 07-08-2021 End: 07-08-2021 Emergency department patient visit Spasic E Work Phone: [facility] ED Start: 07-03-2021 End: 07-04-2021 Emergency department patient visit Lele Castañeda [facility] [place] 06 Start: 07-01-2021 End: 07-02-2021 Emergency department patient visit Aniceto Alvarez [facility] ED [place] 09 Start: 06-28-2021 End: 07-01-2021 Evaluation and management of inpatient Edin Tyler DO Work Phone: [facility] Comment on above: COVID (Primary Dx); Psychosis, unspecified psychosis type (HCC) Start: 05-02-2019 End: 05-02-2019 Emergency department patient visit Koffi Nixon [facility] ED Comment on above: Tension headache (Pr imary Dx) Procedures Date Procedure Procedure Detail Performing Clinician Start: 05-01-2023 DISCHARGE PATIENT TRAE SPASIC Start: 05-01-2023 Basic metabolic 2000 panel - Serum or Plasma TRAE SPASIC Start: 05-01-2023 CBC panel - Blood by Automated count TRAE SPASIC Start: 05-01-2023 Magnesium [Mass/volu me] in Serum or Plasma TRAE SPASIC Start: 05-01-2023 EXTRA TUBES TRAE SPAS IC Start: 05-01-2023 SST TOP TRAE SPAS IC Start: 04-30-2023 REASON FOR NO VTE PROPHYLAXIS AT ADMISSION TRAE SPASIC Start: 04-30-2023 Basic metabolic 2000 panel - Serum or Plasma TRAE SPASIC Start: 04-30-2023 CBC panel - Blood by Automated count TRAE SPASIC Start: 04-30-2023 EXTRA TUBES TRAE SPAS IC Start: 04-30-2023 Magnesium [Mass/volu me] in Serum or Plasma TRAE SPASIC Start: 04-30-2023 SST TOP TRAE SPAS IC Start: 04-29-2023 ADMIT TO INPATIENT JULIUS SHEEHANSIC Start: 04-29-2023 IP CONSULT TO NUTRIT ION SERVICES TRAE SHEEHANSIC Start: 04-29-2023 Basic metabolic 2000 panel - Serum or Plasma TRAE SPASIC Start: 04-29-2023 Magnesium [Mass/volu me] in Serum or Plasma TRAE SPASIC Start: 04-29-2023 EXTRA TUBES TRAE SPAS IC Start: 04-29-2023 SST TOP TRAE SPAS IC Start: 04-28-2023 IP CONSULT TO SOCIAL WORK TRAE SHEEHANSIC Start: 04-28-2023 ECG 12-LEAD TRAE SHEEHANS IC Start: 04-28-2023 REASON FOR NO VTE PROPHYLAXIS AT ADMISSION TRAE SHEEHANSIC Start: 04-28-2023 INITIATE OBSERVATION STATUS TRAE SHEEHANSIC Start: 04-28-2023 ED TO FLOOR BED REQUEST TRAE CHUC Start: 04-28-2023 SERIAL TROPONIN, 1 HOUR TRAE SHEEHANSIC Start: 04-28-2023 ACUTE TOXICOLOGY GORMAN EL, BLOOD TRAE SPASIC Start: 04-28-2023 CBC W Auto Different ial panel - Blood TRAE SHEEHANSIC Start: 04-28-2023 Comprehensive metabo lic 2000 panel - Serum or Plasma TRAE SPASIC Start: 04-28-2023 Creatine kinase [Enz ymatic activity/volume] in Serum or Plasma TRAE SPASIC Start: 04-28-2023 Lactate [Moles/volum e] in Serum or Plasma TRAE SPASIC Start: 04-28-2023 TROPONIN SERIES- (IN ITIAL, 1 HR) TRAE SISSYSIC Start: 04-28-2023 SALINE LOCK IV TRAE SP ASIC Start: 04-28-2023 INSERT PERIPHERAL IV LA URA SPASIC Start: 04-28-2023 VITAL SIGNS TRAE SPAS IC Start: 04-27-2023 DRUG SCREEN, URINE W ITH REFLEX TO CONFIRMATION TRAE SPASIC Start: 04-27-2023 SARS-COV-2 PCR, SCRE EN ASYMPTOMATIC TRAE SISSYSIC Start: 04-27-2023 ACUTE TOXICOLOGY GORMAN EL, BLOOD TRAE BRANTLEY Start: 04-27-2023 CBC W Auto Different ial panel - Blood TRAE SHEEHANSIC Start: 04-27-2023 Comprehensive metabo lic 2000 panel - Serum or Plasma TRAE CHUC Start: 04-27-2023 INITIATE REQUEST TO ANOTHER FACILITY TRAE BRANTLEY Start: 03-23-2023 End: 03-23-2023 EKG impression Trae Conklinabel Start: 03-07-2023 Lipid 1996 panel - S kamari or Plasma Kate Chandler [employer] Start: 09-23-2022 Assay of acetaminophen Markel Bonillaar PA-C Work Phone: Start: 09-23-2022 Assay of ethanol Ronnie Ellison Krupar PA-C Work Phone: Start: 09-23-2022 Assay of salicylate Shant Ellison Krupar PA-C Work Phone: Start: 09-23-2022 Comprehensive metabo lic panel Markel Bonillaar PA-C Work Phone: Start: 09-23-2022 End: 09-23-2022 Lipid panel Markel Ellison Krgracyar PA- C Work Phone: Start: 09-23-2022 COVID-19, RAPID Markel Bonillaar PA-C Work Phone: Start: 09-23-2022 Urnls dip stick/tabl et rgnt auto w/o microscopy Markel Bonillaar PA-C Work Phone: Start: 08-13-2022 End: 08-13-2022 EKG impression Camryn Gonzalez Start: 07-27-2022 COVID-19, RAPID Iveth Contreras MD Work Phone: Start: 07-27-2022 Assay of acetaminophen Iveth Contreras MD Work Phone: Start: 07-27-2022 Assay of ethanol Iveth Contreras MD Work Phone: Start: 07-27-2022 Assay of salicylate Melo nanci Contreras MD Work Phone: Start: 07-27-2022 Comprehensive metabo lic panel Iveth Contreras MD Work Phone: Start: 07-27-2022 End: 07-27-2022 Lipid panel Iveth Contreras MD Work Phone: Start: 07-27-2022 Urnls dip stick/tabl et rgnt auto w/o microscopy Iveth Contreras MD Work Phone: Start: 07-17-2022 SARS Antigen (LFIA) Ser vices [facility] Work Phone: Start: 07-11-2022 X-ray of cervical spine Services [facility] Work Phone: Start: 06-30-2022 End: 07-01-2022 EKG impression Geeta Brockiq Start: 06-17-2022 Lipid 1996 panel - S kamari or Plasma [facility] [employer] Start: 06-16-2022 End: 06-16-2022 EKG impression Tung Strickland Start: 02-05-2022 End: 02-05-2022 EKG impression Markel Kunzantoni Start: 01-22-2022 Ecg routine ecg w/le ast 12 lds trcg only w/o i&r Rose MD Work Phone: Start: 01-22-2022 Urnls dip stick/tabl et rgnt auto w/o microscopy Rose MD Work Phone: Start: 01-22-2022 Assay of acetaminophen Rose MD Work Phone: Start: 01-22-2022 Assay of ethanol De Ant katiuska Chavez MD Work Phone: Start: 01-22-2022 Assay of salicylate Rose MD Work Phone: Start: 01-22-2022 Comprehensive metabo lic panel Rose MD Work Phone: Start: 01-22-2022 End: 01-22-2022 Lipid panel Rose MD Work Phone: Start: 01-21-2022 COVID-19, RAPID Loera MD Work Phone: Start: 07-08-2021 Ecg routine ecg w/le ast 12 lds w/i&r Eusebio Cruz PA-C Work Phone: Start: 07-08-2021 Assay of acetaminophen Eusebio Cruz PA-C Work Phone: Start: 07-08-2021 Assay of ethanol Saranya Cruz PA-C Work Phone: Start: 07-08-2021 Assay of salicylate Chava Cruz PA-C Work Phone: Start: 07-08-2021 Comprehensive metabo lic panel Eusebio Cruz PA-C Work Phone: Start: 07-08-2021 COVID-19, JABIER Haynes PA-C Work Phone: Start: 07-08-2021 Drug screen class list a Eusebio Cruz PA-C Work Phone: Start: 07-08-2021 Urnls dip stick/tabl et rgnt auto w/o microscopy Eusebio Cruz PA-C Work Phone: Start: 07-03-2021 End: 07-03-2021 EKG impression Kenny Emanueloburn Start: 07-02-2021 End: 07-02-2021 EKG impression Tung Strickland Start: 07-01-2021 End: 07-01-2021 EKG impression Tung Strickland Start: 07-01-2021 Comprehensive metabo lic panel Jose Alegre MD Work Phone: Start: 06-30-2021 Us retroperitoneal r eal time w/image limited Jose Alegre MD Work Phone: Start: 06-30-2021 Comprehensive metabo lic panel Jose Alegre MD Work Phone: Start: 06-29-2021 Comprehensive metabo lic panel Jose Alegre MD Work Phone: Start: 12-18-2021 Ecg routine ecg w/le ast 12 lds w/i&r Reynaldo Berry MD Work Phone: Start: 06-28-2021 COVID-19, RAPID Edin Tyler DO Work Phone: Start: 06-28-2021 Assay of ethanol Edin Tyler DO Work Phone: Start: 06-28-2021 Assay of acetaminophen Edin Tyler DO Work Phone: Start: 06-28-2021 Assay of salicylate Maria G Tyler DO Work Phone: Start: 06-28-2021 End: 06-28-2021 Comprehensive metabolic panel Edin Tyler DO Work Phone: Start: 06-28-2021 Lipid panel Edin Nick thong DO Work Phone: Start: 06-28-2021 Drug screen class list a Edin Tyler DO Work Phone: Start: 06-28-2021 Urnls dip stick/tabl et rgnt auto w/o microscopy Edin Tyler DO Work Phone: Start: 05-02-2019 Ecg routine ecg w/le ast 12 lds w/i&r Koffi Hussain Start: 05-02-2019 Assay of troponin quantitative Koffi Nixon Start: 05-02-2019 Basic metabolic pane l calcium total Koffi Nixon Start: 05-02-2019 Blood count complete auto&auto difrntl wbc Koffi Hussain Plan of Treatment Date Care Activity Detail Author Start: 04-02-2028 DTaP/Tdap/Td vaccine (2 - Td or Tdap) DTaP/Tdap/Td vaccine (2 - Td or Tdap) [facility] Start: 03-07-2028 Lipid 1996 panel - Serum or Plasma Lipid Screening [facility] Start: 03-07-2028 LIPID SCREEN LIPID SCREEN [facility] Start: 09-24-2027 Lipid panel Lipids [facility] Start: 07-27-2027 Lipid panel Lipids [facility] Start: 06-17-2027 Lipid panel Lipid Panel [facility] Start: 06-28-2026 Lipid panel Lipid screen [facility] Start: 04-23-2026 Diabetes Screening Diabetes Screening [facility] Start: 03-06-2026 DIABETES SCREEN DIABETES SCREEN [facility] Start: 06-02-2023 [facility] Start: 2023 Referral to [facility] Start: 2023 Hospital admission [facility] Start: 04-21-2023 [facility] Start: 04-15-2023 Referral to [facility] Start: 04-15-2023 Hospital admission [facility] Start: 03-13-2023 Influenza vaccination [facility] Start: 02-17-2023 [facility] Start: 02-11-2023 Hospital admission [facility] Start: 09-22-2022 [facility] Start: 09-09-2022 Hospital admission [facility] Start: 09-09-2022 [facility] Start: 08-13-2022 End: 08-14-2023 LORazepam Injectable 2 mg IntraVenous Push Once ; (ATIVAN)DOSE = 1 mg IntraVenous Push Every 2 Hours, PRN CIWA score 8-9 Start: 13-Aug-2022 End: 13-Aug-2023 Ordered: 13-Aug-2022 Camryn Gonzalez [facility] Start: 07-15-2022 [facility] Start: 07-13-2022 DEPRESSION ASSESSMENT DEPRESSION ASSESSMENT [facility] Start: 07-13-2022 [facility] Start: 07-12-2022 [facility] Start: 07-11-2022 Referral to [employer] [facility] Start: 07-11-2022 Hospital admission [facility] Start: 07-11-2022 Blood chemistry [facility] Start: 07-11-2022 Magnesium measurement [facility] Start: 07-11-2022 End: 07-11-2022 [facility] Start: 07-10-2022 Referral to psychiatrist [facility] Start: 07-10-2022 Hospital admission [facility] Start: 07-10-2022 [facility] Start: 07-09-2022 Referral to [employer] [facility] Start: 07-01-2022 Procedure needed Evaluation by medical service required Date: 01-Jul-2022 [facility] Start: 06-17-2022 Psychological assessment Psychological assessment Date: 17-Jun-2022 [facility] Start: 2022 Screening for malignant neoplasm of lung Lung Cancer Screening [facility] Start: 2022 Shingles vaccine (1 of 2) Shingles vaccine (1 of 2) [facility] Start: 2022 SHINGRIX VACCINE (1 of 2) SHINGRIX VACCINE (1 of 2) [facility] Start: 2022 Zoster Vaccines (1 of 2) Zoster Vaccines (1 of 2) [facility] Start: 03-13-2022 Influenza vaccination Flu vaccine (#1) [facility] Start: 02-10-2022 Influenza vaccination Flu vaccine (#1) [facility] Start: 02-07-2022 End: 02-07-2023 Hydrocortisone 0.5% Topical 1 application Cream 2 Times a Day ; Cream (CORTAID, HYTONE)DOSE = 1 application(s) Topical Once, PRN Itching (topical relief)Apply to affected area Start: 06-Feb-2022 End: 06-Feb-2023 Ordered: 06-Feb-2022 Gabo Cho [facility] Start: 02-06-2022 End: 02-07-2023 [facility] Start: 02-06-2022 End: 02-06-2023 LORazepam 1 mg Oral Tablet Every 8 Hours PRN ; Tablet (ATIVAN)DOSE = 1 mg Oral Every 2 Hours, PRN CIWA score 8-9 Start: 05-Feb-2022 End: 05-Feb-2023 Ordered: 05-Feb-2022 Gabo Cho [facility] Start: 02-06-2022 End: 02-06-2023 [facility] Comment on above: Contact provider for assessment/need for additional doses. Start: 02-05-2022 Psychological assessment Psych ological assessment Date: 05-Feb-2022 [facility] Start: 07-03-2021 End: 07-04-2022 LORazepam Injectable 2 mg IntraVenous Push Once ; (ATIVAN)DOSE = 2 mg IntraMuscular Once Start: 03-Jul-2021 End: 03-Jul-2022 Ordered: 03-Jul-2021 Kenny Pritchett [facility] Start: 07-02-2021 Chest pain Chest pain Ed e: 02-Jul-2021 [facility] Start: 07-02-2021 End: 07-03-2022 [facility] Start: 07-01-2021 Chest pain Chest pain Ed e: 01-Jul-2021 [facility] Start: 03-13-2021 Influenza vaccination Flu vaccine (# 1) [facility] Start: 06-08-2020 Annual PCP Team Manifest/Order Organizer Print Orders mary Disease Visit Annual PCP Team Chronic Disease Visit [facility] Start: 03-13-2019 Influenza vaccination Flu vaccine (# 1) [place] Start: 2017 COLOGUARD (FIT-DNA) COLOGUARD (FIT-D NA) [facility] Start: 2017 Colonoscopy COLONOSCOPY [facility] Start: 2017 COLORECTAL CANCER SCREENING COLORECTAL CANCER SCREENING [facility] Start: [address] COLONOGRAPHY [facility] Start: 2017 FECAL OCCULT BLOOD FECAL OCCULT BLOO D [facility] Start: 2017 Screening for malign ant neoplasm of colon [facility] Start: 2017 SIGMOIDOSCOPY SIGMOIDOSCOPY [facility] Start: 2012 Lipid screen Lipid screen [place], [place] Start: 2007 Diabetes screen Diabetes screen [facility] Start: 1994 DTaP/Tdap/Td Vaccine s (1 - Tdap) DTaP/Tdap/Td Vaccines (1 - Tdap) [facility] Start: 1991 DTaP/Tdap/Td vaccine (1 - Tdap) DTaP/Tdap/Td vaccine (1 - Tdap) [facility] Start: 1991 Hepatitis A Vaccines (1 of 2 - Risk 2-dose series) Hepatitis A Vaccines (1 of 2 - Risk 2-dose series) [facility] Start: 1991 Urine microalbumin profile [facility] Start: 1990 BP Controlled (<130/80) BP Controlle d (<130/80) [facility] Start: 1990 Hepatitis C screening Hepatitis C sc dakotan [facility] Start: 1990 HEPATITIS C SCREENING HEPATITIS C SC DAKOTANING [facility] Start: 1990 HIV SCREENING HIV SCREENING [facility] Start: 1987 HIV screen HIV screen [place], [place] Start: 1987 HIV screening HIV screen [facility] Start: 1984 Depression Monitoring Depression Mon itoring [facility] Start: 1984 Depression Screen Depression Screen [facility] Start: 1978 PNEUMOCOCCAL (1 - PCV) PNEUMOCOCCAL (1 - PCV) [facility] Start: 1978 Pneumococcal 0-64 ye ars Vaccine (1 - PCV) Pneumococcal 0-64 years Vaccine (1 - PCV) [facility] Start: 1978 Pneumococcal 0-64 ye ars Vaccine (1 of 1 - PPSV23) Pneumococcal 0-64 years Vaccine (1 of 1 - PPSV23) [place] Start: 1978 Pneumococcal 0-64 ye ars Vaccine (1 of 2 - PPSV23) Pneumococcal 0-64 years Vaccine (1 of 2 - PPSV23) [facility] Start: 1978 Pneumococcal vaccination Pneum ococcal Vaccine (1 - PCV) [facility] Start: 1978 Pneumococcal Vaccine : Pediatrics (0 to 5 Years) and At-Risk Patients (6 to 64 Years) (1 - PCV) Pneumococcal Vaccine: Pediatrics (0 to 5 Years) and At-Risk Patients (6 to 64 Years) (1 - PCV) [facility] Start: 1977 COVID-19 Vaccine (1) COVID-19 Vaccin e (1) [facility] Start: 1973 MMR Vaccines (1 of 1 - Standard series) MMR Vaccines (1 of 1 - Standard series) [facility] Start: 1972 COVID-19 Vaccine (#1) COVID-19 Vacci ne (#1) [facility] Start: 1972 HEPATITIS B (1 of 3 - 3-dose series) HEPATITIS B (1 of 3 - 3-dose series) [facility] Start: 1972 Hepatitis B Vaccine (1 of 3 - 3-dose series) Hepatitis B Vaccine (1 of 3 - 3-dose series) [facility] Start: 1972 Hepatitis B Vaccines (1 of 3 - 3-dose series) Hepatitis B Vaccines (1 of 3 - 3-dose series) [facility] Start: 1972 Hepatitis C screening Hepatitis C sc reen [employer] Start: 1972 Screening for malign ant neoplasm of colon [facility] Start: 1972 Yearly Adult Physical Yearly Adult P hysical [facility] CBC W Auto Different ial panel - Blood CBC Auto Differential Lab Routine Daily until discontinued starting 06/29/2021, 3 completed [employer] Work Phone: Comment on above: Daily until disconti nued starting 06/29/2021, 3 completed Chest pain Chest pain [facility] Comprehensive metabo lic 2000 panel - Serum or Plasma Comprehensive Metabolic Panel Lab Routine Daily until discontinued starting 06/29/2021, 3 completed [employer] Work Phone: Comment on above: Daily until disconti nued starting 06/29/2021, 3 completed End: 05-02-2019 CT Head WO Contrast CT Head WO Contrast Imaging STAT Once for 1 Occurrences starting 05/02/2019 until 05/02/2019 [employer] Comment on above: Once for 1 Occurrenc es starting 05/02/2019 until 05/02/2019 CT Head WO Contrast CT Head WO C ontrast Imaging STAT 05/02/2019 2:56 AM EDT [facility] ECG 12 lead [facility] Service [facility] Work Phone: EKG 12 Lead EKG 12 Lead ECG Routine 06/29/2021 2:25 PM EST [employer] Work Phone: EKG 12 Lead EKG 12 Lead ECG Routine 07/08/2021 7:58 PM EST [employer] Work Phone: EKG 12 Lead - Chest Pain EKG 12 Lead - Chest Pain ECG STAT 05/02/2019 1:31 AM EDT [employer], [place] Oxygen therapy [[place] [facility] [place]] Initiate Oxygen Therapy Protocol Respiratory Care Routine Daily until discontinued starting 06/29/2021 [employer] Work Phone: Comment on above: Daily until disconti nued starting 06/29/2021 Patient Education [facility] Work Phone: Patient referral [facility] Work Phone: Immunizations Immunization Date Immunization Notes Care Provider Blas rosales 03-01-2019 influenza virus vaccine, unspecified formulation Kate Chandler [facility] 04-02-2018 tetanus toxoid, redu sanju diphtheria toxoid, and acellular pertussis vaccine, adsorbed Services [facility] Work Phone: [facility] Payers Date Payer Category Payer Medicaid [facility] MEDICA[facility] [employer] MEDICA[place] [id number] 2022-Present [phone] [address] [place] [address] Medicaid [id number] 2022 Self-pay [id number] 2021 Private Health Insurance [id number] [address] [facility] COMMUNITY [facility] COMMUNITY PLAN [id number] 2021-Present [address] [place] [address] [id number] [facility] [address] [facility] COMMUNITY PLAN xxxxxxxxx 2017-Present [phone] [address] [place] [address] xxxxxxxxx [id number] 2017 Private Health Insurance [id number] [id number]. [id number] 1972 Unknown [id number] 2.16.840.1.639372.3.579.2. 182 1972 Unknown [id number] 2.16.840.1.762375.3.579.2. 182 1972 Unknown [id number] 2.16.840.1.699248.3.579.2. 182 1972 Unknown [id number] 2.16.840.1.037722.3.579.2. 182 1972 Unknown [id number] 2.16.840.1.479658.3.579.2. 8 1972 Unknown [id number] 2.16.840.1.842053.3.579.2. 8 1972 Unknown [id number] 2.16.840.1.624324.3.579.2. 8 1972 Unknown [id number] 2.16.840.1.246910.3.579.2. 8 1972 Unknown [id number] 2.16.840.1.930613.3.579.2. 8 1972 Unknown [id number] 2.16.840.1.793525.3.579.2. 6 1972 Unknown [id number] 2.16.840.1.290836.3.579.2. 6 1972 Unknown [id number] 2.16.840.1.157866.3.579.2. 6 1972 Unknown [id number] 2.16.840.1.724368.3.579.2. 6 1972 Unknown [id number] 2.16.840.1.268794.3.579.2. 1246 Unknown Unknown [facility] [id number] Unknown [id number] 2.16.840.1.451406.3.579.2. 531 Unknown [id number] 2.16.840.1.097416.3.579.2. 531 Unknown [id number] 2.16.840.1.829854.3.579.2. 531 Unknown [id number] 2.16.840.1.099694.3.579.2. 531 Unknown [id number] 2.16.840.1.999152.3.579.2. 531 Unknown [id number] 2.16.840.1.455217.3.579.2. 531 Unknown [id number] 2.16.840.1.166196.3.579.2. 531 Unknown [id number] 2.16.840.1.769864.3.579.2. 531 Unknown [id number] 2.16.840.1.279787.3.579.2. 531 Unknown [id number] 2.16.840.1.237146.3.579.2. 531 Social History Date Type Detail Facility Start: 05-02-2019 End: 04-28-2023 Tobacco smoking status NHIS Current every day smoker [place] History of tobacco use Cigarette Smoker [place] Start: 05-02-2019 End: 04-28-2023 Cigarettes smoked current (pack per day) - Reported [facility] Start: 05-02-2019 End: 04-28-2023 Alcohol intake Not Currently [facility] Start: 1970 Sex Assigned At Not on file M [place], [place] Start: 05-03-2019 End: 08-02-2022 Alcohol intake Ex-drinker (finding) [employer] Phone: Start: 01-10-2022 End: 04-27-2023 Exposure to SARS-CoV-2 (event) Not sure [facility] [employer] Tobacco smoking consumption unknown [facility] Start: 06-08-2019 End: 01-20-2022 Tobacco use and exposure Smokeless tobacco non-user [facility] [employer] Phone: Start: 07-10-2022 End: 05-28-2023 Tobacco smoking status NHIS Smoker (finding) [facility] Start: 1970 Sex Assigned At Male F [facility] Start: 09-23-2022 History SDOH Alcohol Frequency 5 [facility] [employer] Work Phone: Start: 03-06-2023 End: 04-23-2023 Alcohol intake Current non-drinker of alcohol (finding) [facility] (I/We) worried whether (my/our) food would run out before (I/we) got money to buy more. Never true [facility] Ran Out of Food in the Last Year Not on file [facility] Start: 04-28-2023 Alcohol intake Current drinke r of alcohol (finding) [facility] Work Phone: How often to you hav e a drink containing alcohol? 4 or more times a week [facility] How many standard drinks containing alcohol do you have on a typical day? 7 to 9 [facility] Work Phone: How often do you hav e 6 or more drinks on 1 occasion? Daily or almost daily [facility] Work Phone: Start: 04-28-2023 Alcohol Comment 5th of liquor daily [facility] Work Phone: NEGATED: Highlighted rowStart: NINF History of tobacco use Passive smoker [facility] Work Phone: Medical Equipment Procedure Code Equipment Code Equipment Origin al Text Equipment Identifier Dates 4.0x 13 st va screw FDA Start : 06-17-2018 BONE 6MM DUO FDA Start: 06-17-2018 BONE 7MM DUO FDA Start: 06-17-2018 BONE 7MM DUO FDA Start: 06-17-[address] va screw FDA Start : 06-17-[address] va screw FDA Start : 06-17-[address] fa screw FDA Start: 06-17-[address] fa screw FDA Start: 06-17-[address] fa screw FDA Start: 06-17-[address] fa screw FDA Start: 06-17-[address] fa screw FDA Start: 06-17-2018 65mm venture plate FDA Start: 06-17-[address] va screw FDA Start : 06-17-2018 BONE 6MM DUO FDA Start: 06-17-2018 BONE 7MM DUO FDA Start: 06-17-2018 BONE 7MM DUO FDA Start: 06-17-[address] va screw FDA Start : 06-17-[address] va screw FDA Start : 06-17-[address] fa screw FDA Start: 06-17-[address] fa screw FDA Start: 06-17-[address] fa screw FDA Start: 06-17-[address] fa screw FDA Start: 06-17-[address] fa screw FDA Start: 06-17-2018 65mm venture plate FDA Start: 06-17-[address] va screw FDA Start : 06-17-2018 BONE 6MM DUO FDA Start: 06-17-2018 BONE 7MM DUO FDA Start: 06-17-2018 BONE 7MM DUO FDA Start: 06-17-[address] va screw FDA Start : 06-17-[address] va screw FDA Start : 06-17-[address] fa screw FDA Start: 06-17-[address] fa screw FDA Start: 06-17-[address] fa screw FDA Start: 06-17-[address] fa screw FDA Start: 06-17-[address] fa screw FDA Start: 06-17-2018 65mm venture plate FDA Start: 06-17-[address] va screw FDA Start : 06-17-2018 BONE 6MM DUO FDA Start: 06-17-2018 BONE 7MM DUO FDA Start: 06-17-2018 BONE 7MM DUO FDA Start: 06-17-[address] va screw FDA Start : 06-17-[address] va screw FDA Start : 06-17-[address] fa screw FDA Start: 06-17-[address] fa screw FDA Start: 06-17-[address] fa screw FDA Start: 06-17-[address] fa screw FDA Start: 06-17-[address] fa screw FDA Start: 06-17-2018 65mm venture plate FDA Start: 06-17-[address] va screw FDA Start : 06-17-2018 BONE 6MM DUO FDA Start: 06-17-2018 BONE 7MM DUO FDA Start: 06-17-2018 BONE 7MM DUO FDA Start: 06-17-[address] va screw FDA Start : 06-17-[address] va screw FDA Start : 06-17-[address] fa screw FDA Start: 06-17-[address] fa screw FDA Start: 06-17-[address] fa screw FDA Start: 06-17-[address] fa screw FDA Start: 06-17-[address] fa screw FDA Start: 06-17-2018 65mm venture plate FDA Start: 06-17-[address] va screw FDA Start : 06-17-2018 BONE 6MM DUO FDA Start: 06-17-2018 BONE 7MM DUO FDA Start: 06-17-2018 BONE 7MM DUO FDA Start: 06-17-[address] va screw FDA Start : 06-17-[address] va screw FDA Start : 06-17-[address] fa screw FDA Start: 06-17-[address] fa screw FDA Start: 06-17-[address] fa screw FDA Start: 06-17-[address] fa screw FDA Start: 06-17-[address] fa screw FDA Start: 06-17-2018 65mm venture plate FDA Start: 06-17-[address] va screw FDA Start : 06-17-2018 BONE 6MM DUO FDA Start: 06-17-2018 BONE 7MM DUO FDA Start: 06-17-2018 BONE 7MM DUO FDA Start: 06-17-[address] va screw FDA Start : 06-17-[address] va screw FDA Start : 06-17-[address] fa screw FDA Start: 06-17-[address] fa screw FDA Start: 06-17-[address] fa screw FDA Start: 06-17-[address] fa screw FDA Start: 06-17-[address] fa screw FDA Start: 06-17-2018 65mm venture plate FDA Start: 06-17-[address] va screw FDA Start : 06-17-2018 BONE 6MM DUO FDA Start: 06-17-2018 BONE 7MM DUO FDA Start: 06-17-2018 BONE 7MM DUO FDA Start: 06-17-[address] va screw FDA Start : 06-17-[address] va screw FDA Start : 06-17-[address] fa screw FDA Start: 06-17-[address] fa screw FDA Start: 06-17-[address] fa screw FDA Start: 06-17-[address] fa screw FDA Start: 06-17-[address] fa screw FDA Start: 06-17-2018 65mm venture plate FDA Start: 06-17-[address] va screw FDA Start : 06-17-2018 BONE 6MM DUO FDA Start: 06-17-2018 BONE 7MM DUO FDA Start: 06-17-2018 BONE 7MM DUO FDA Start: 06-17-[address] va screw FDA Start : 06-17-[address] va screw FDA Start : 06-17-[address] fa screw FDA Start: 06-17-[address] fa screw FDA Start: 06-17-[address] fa screw FDA Start: 06-17-[address] fa screw FDA Start: 06-17-[address] fa screw FDA Start: 06-17-2018 65mm venture plate FDA Start: 06-17-2018 Goals Date Patient Goal Desired Activity /State Functional Status Date Assessment Result Facility 06-02-2023 Functional status Patient at Baseline [facility] Work Phone: 04-21-2023 Functional status Patient at Baseline [facility] Work Phone: 02-17-2023 Functional status Patient at Baseline [facility] Work Phone: 09-22-2022 Functional status Patient at Baseline [facility] Work Phone: 07-15-2022 Functional status Patient at Baseline [facility] Work Phone: 07-11-2022 Functional status Patient at Baseline [facility] Work Phone: 07-10-2022 Functional status Disability Sta tus Patient at Baseline [facility] Work Phone: Functional observable [facility] Mental Status Date Assessment Result Facility 06-02-2023 Cognitive function Cognitive Sta tus Patient at Baseline [facility] Work Phone: 04-21-2023 Cognitive function Cognitive Sta tus Patient is Progressing Toward Baseline [facility] Work Phone: 02-17-2023 Cognitive function Cognitive Sta tus Patient at Baseline [facility] Work Phone: 09-22-2022 Cognitive function Cognitive Sta tus Patient at Baseline [facility] Work Phone: 08-18-2022 Cognitive functi ons :11 [facility] 08-16-2022 Cognitive functi ons :57 [facility] 07-15-2022 Cognitive function Cognitive Sta tus Patient at Baseline [facility] Work Phone: 07-10-2022 Cognitive function Cognitive Sta tus Patient at Baseline [facility] Work Phone: 06-17-2022 Cognitive functi ons :35 [facility] 02-12-2022 Cognitive functi ons :21 [facility] Clinical Notes 06-27-2021 to 06-01-2023 Note Date & Type Note Facility 06-01-2023 Progress note Note Date/Time June 01, 2023 7:45am [facility] [address] [place], [place] [id number] Psychiatry Progress Note Signed Patient: Edward Crowder MR#: [id number] : 1970 Acct:[id number] Age/Sex: 53 / M Adm Date: 3 Loc: 1S Room: [address] [place] [address] Type : ADM IN Attending Dr: Paulo Strauss MD Copies to: ~ Date of Service: 06/01/2023 Subjective Subjective Narrative: fMrJanet Crowder reported that his racing thoughts are decreasing. He said meds are partially effective. He said he has to see his chief lifestyle officer when he leaves. He stated that most likely he will either be going back to skilled nursing or penitentiary times that he is violated. He stated that he just needs a ride to his corporate officer from here and just wants to get things taken care of so that he does nothave anything hanging over his head. He does report that his girlfriend did tell him that there is a warrant out for his arrest. Mental Status Exam: Appearance: grossly normal Mental Status: mental status grossly normal Mood: dysthymic mood Affect: Improving affect Speech and Movement: speech and movement normal and speech clear Attitude: cooperative Thought Process: normal Thought Content: Reported hallucinations, no homicidality, improving suicidality Insight: fair Judgment: fair Exam Physical Exam Vital Signs: Temp Pulse Resp BP Pulse Ox O2 Del Method 97.6 F 79 16 144/90 H 97 Room Air 05/31/23 20:19 05/31/23 20:19 05/31/23 20:19 05/31/23 20:19 05/31/23 20:19 05/31/23 20:19 Assessment/Plan Assessment/Plan (1) MDD (major depressive disorder), recurrent, severe, with psychosis: Code(s): F33.3 - Major depressive disorder, recurrent, severe with psychotic symptoms Status: Acute Plan Patient still reporting some anxiety and racing thoughts. He reports his suicide thoughts are intermittent. Denied plans today. Continue Zoloft 150 mg daily and Depakote 500 mg twice a day Continue doxepin 20 mg 3 times a day and Geodon 60 mg twice a day, increase Requip 0.5 twice a day Continue to monitor mental status Encourage group participation and medication compliance Risk benefits alternatives explained Documented By: Naeem Rodriges MD 3 [id number] Signed By: <Electronically signed by Naeem Rodriges MD> 06/01/23 0746 [facility] Work Phone: 1(639) 598-848311-19-2023 Progress note Author Paulo Strauss [facility] May 31, 2023 10:41am Note Date/Time May 31, 2023 10:41am [facility] [address] [place] [address] Psychiatry Progress Note Signed Patient: Edward Crowder MR#: [id number] : 1970 Acct:[id number] Age/Sex: 53 / M Adm Date: 3 Loc: Room: [address] [place] [address] Type : ADM IN Attending Dr: Paulo Strauss MD Copies to: ~ Date of Service: 05/31/2023 Subjective Subjective Narrative: The amount ofMrJanet Crowder reported that his sleep was up and down last night. He reported that he still has some racing thoughts and some hallucinations. He feels like the medications are helping a little bit but he has still been experiencing them. He reported that he spoke to his girlfriend yesterday who stated that the prolapse are contacted her and is looking for him. He stated that this is the third time that he is violated and not reported. He stated that most likely he will either be going back to skilled nursing or penitentiary times that he isviolated. He stated that he just needs a ride to his corporate officer from here and just wants to get things taken care of so that he does not have anything hanging over his head. He does report that his girlfriend did tell himthat there is a warrant out for his arrest. Mental Status Exam: Appearance: grossly normal Mental Status: mental status grossly normal Mood: dysthymic mood Affect: Improving affect Speech and Movement: speech and movement normal and speech clear Attitude: cooperative Thought Process: normal Thought Content: Reported hallucinations, no homicidality, improving suicidality Insight: fair Judgment: fair Exam Physical Exam Vital Signs: Temp Pulse Resp BP Pulse Ox O2 Del Method 97.4 F L 110 H 16 156/93 H 97 Room Air 05/31/23 07:30 05/31/23 07:30 05/31/23 07:30 05/31/23 07:30 05/31/23 07:30 05/31/23 07:30 Assessment/Plan Assessment/Plan (1) MDD (major depressive disorder), recurrent, severe, with psychosis: Code(s): F33.3 - Major depressive disorder, recurrent, severe with psychotic symptoms Status: Acute Plan Patient still reporting some anxiety and racing thoughts. Still having some hallucinations Does express that he needs to present to his corporate officer due to violating his probation Continue Zoloft 150 mg daily and Depakote 500 mg twice a day Continue doxepin 20 mg 3 times a day and Geodon 60 mg twice a day, increase Requip 0.5 twice a day Continue to monitor mental status Encourage group participation and medication compliance Risk benefits alternatives explained Documented By: Paulo Strauss MD 05/31/23 1039 Signed By: <Electronically signed by Paulo Strauss MD> 05/31/23 1041 [facility] Work Phone: 1(882) 965-580711-18-2023 Progress note Author Paulo Strauss [facility] May 30, 2023 10:52am Note Date/Time May 30, 2023 10:52am [facility] [address] [place] [address] Psychiatry Progress Note Signed Patient: Edward Crowder MR#: [id number] : 1970 Acct:[id number] Age/Sex: 53 / M Adm Date: 3 Loc: 1S Room: [address] [place] [address] Type : ADM IN Attending Dr: Paulo Strauss MD Copies to: ~ Date of Service: 05/30/2023 Subjective Subjective Narrative: Mr. Crowder reported that he feels like he can get away from the hallucinations. He reported that they bother him and tell him to give up and not go on. He reported that his anxiety is high because of these voices and he feels like his thoughts are racing and cannot calm himself down. He reported that he feels like the medications are helping but not to the point where he feels like they are fully effective. Mental Status Exam: Appearance: grossly normal Mental Status: mental status grossly normal Mood: dysthymic mood Affect: dysphoric affect Speech and Movement: speech and movement normal and speech clear Attitude: cooperative Thought Process: normal Thought Content: Reported hallucinations, no homicidality, reported suicidality Insight: fair Judgment: fair Exam Physical Exam Vital Signs: Temp Pulse Resp BP Pulse Ox O2 Del Method 97.9 F 73 16 128/91 98 Room Air 05/30/23 07:30 05/30/23 07:30 05/30/23 07:30 05/30/23 07:30 05/30/23 07:30 05/30/23 07:30 Assessment/Plan Assessment/Plan (1) MDD (major depressive disorder), recurrent, severe, with psychosis: Code(s): F33.3 - Major depressive disorder, recurrent, severe with psychotic symptoms Status: Acute Plan Patient still reporting depression, anxiety and suicidal thoughts Continue Zoloft 150 mg daily and Depakote 500 mg twice a day Increase doxepin 20 mg 3 times a day and Geodon 60 mg twice a day, increase Requip 0.5 twice a day Continue to monitor mental status Encourage group participation and medication compliance Risk benefits alternatives explained Documented By: Paulo Strauss MD 05/30/23 105 Signed By: <Electronically signed by Paulo Strauss MD> 05/30/23 105 [facility] Work Phone: 1(855) 659-920611-17-2023 Progress note Author Paulo Strauss [facility] May 29, 2023 11:08am Note Date/Time May 29, 2023 11:08am [facility] [address] [place] [address] Psychiatry Progress Note Signed Patient: Edward Crowder MR#: [id number] : 1970 Acct:[id number] Age/Sex: 53 / M Adm Date: 3 Loc: Room: [address] [place] [address] Type : ADM IN Attending Dr: Paulo Strauss MD Copies to: ~ Date of Service: 05/29/2023 Subjective Subjective Narrative: Mr. Crowder reported that he still experiencing some voices. He reported that hehears things constantly and it makes him very anxious. He reported that his anxiety is bad and his depression is still high. He denied current suicidal thoughts today but did report some yesterday. He reported that he did not sleepwell and was up and down throughout the night. Mental Status Exam: Appearance: grossly normal Mental Status: mental status grossly normal Mood: dysthymic mood Affect: dysphoric affect Speech and Movement: speech and movement normal and speech clear Attitude: cooperative Thought Process: normal Thought Content: Reported hallucinations, no homicidality, reported suicidality Insight: fair Judgment: fair Exam Physical Exam Vital Signs: Temp Pulse Resp BP Pulse Ox O2 Del Method 97.8 F 92 H 18 139/85 98 Room Air 05/29/23 07:30 05/29/23 07:30 05/29/23 07:30 05/29/23 07:30 05/29/23 07:30 05/29/23 07:30 Assessment/Plan Assessment/Plan (1) MDD (major depressive disorder), recurrent, severe, with psychosis: Code(s): F33.3 - Major depressive disorder, recurrent, severe with psychotic symptoms Status: Acute Plan Patient still reporting depression, anxiety and suicidal thoughts Continue Zoloft 150 mg daily, Geodon 40 mg twice a day, Requip 0.25 twice a day,doxepin 10 mg 3 times a day, and Depakote 500 mg twice a day Continue to monitor mental status Encourage group participation and medication compliance Risk benefits alternatives explained Documented By: Paulo Strauss MD 05/29/231106 Signed By: <Electronically signed by Paulo Strauss MD> 05/29/231107 [facility] Work Phone: 1(813) 636-620811-16-2023 History and physical note Author Paulo Strauss [facility] May 28, 2023 11:08am Note Date/Time May 28, 2023 11:00am [facility] [address] [place] [address] Psychiatry H&P Signed Patient: Edward Crowder MR#: [id number] : 1970 Acct:[id number] Age/Sex: 53 / M Adm Date: 3 Loc: Room: [address] [place] [address] Type: ADM IN Attending Dr: Paulo Strauss MD Copies to: Paulo Strauss MD [facility]~ Date of Service: 05/28/2023 HPI History of Present Illness History of present illness: Mr. Crowder is a 53 year old male who presented due to concern for depression andsuicidal ideation. He expressed a plan of hanging himself or overdosing. He also reported auditory hallucinations telling him to kill himself. When, patient reported [facility]. Hereported that they were not giving him his medications that he was discharged on. He reported since stopping the medication he has noticed that he has not been doing well. He reported that he has been feeling a lot of anxiety and having racing thoughts. He reported that he was having suicidal thoughts and has not been sleeping well as well. He reported that he is not sure why they did not get him back on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 Described Mood: Down Observed/Reported: Anxious Range of Affect: Constricted/Restricted Sleep: Decreased Need Appetite: Lack of Appetite Energy: Excessive Increase in Energy Anxiety/Trauma: Panic Attacks, Restlessness, Unable to Control Worry Non-Suicidal Self Injury Non-Suicidal Self Injury: Patient Denies Suicidal Ideation Suicidal Ideation: Current, Past Attempts Current Plans/Means: Pt has a plan to ovderdose on medications. Description of Risk: Overdose on medications. Number of Attempts Reported by Patient: 2 Homicidal Ideation Homicidal Ideation: Patient Denies Non-Lethal Harm to Others or Damage/Destruction to Property Harm to Others or Damage/Destruction of Property: Patient Denies Access To Weapons Access To Weapons: No Medical Conditions Medical Conditions Increasing Risks: None CHEMICAL DEPENDENCY Substance Use: Yes Referral for Substance Abuse Services: No Chemical Dependency Inpatient/Residential Treatment History: Pt currently resides at the [facility]. Toxicology Screen Results: Negative Substances Used: Alcohol ACTIVITY Activities of Daily Living: Independent Mobility: No Assistance Continence: Continent MENTAL HEALTH SERVICES: Current Mental Health Providers: None, pt was prescribed medicaitons during his stay at [facility] but denied being linked with outpatient. Inpatient Mental Health Treatment History: Within Past 30 Days Details of Past Hospitalization: Pt has been admitted to [facility], [facility], [facility], and [facility]. Last Hospitalization: Pt was last admitted to [facility] from 04/13/23 through 04/21/23 for psychosis and depression. SAFE-T Protocol with C-SSRS Step 1: Identify Risk Factors C-SSRS Suicidal Ideation Severity Month 1. Wish to be Yes 2. Current suicidal thoughts Yes 3. Suicidal thoughts w/ Method Yes 4. Suicidal Intent without Specific Plan Yes 5. Intent with Plan Yes C-SSRS Suicidal Behavior: Lifetime Yes Past 3 Months No Current and Past Psychiatric Dx: Psychotic Disorder, Mood Disorder Presenting Symptoms: Hopelessness or Despair, Anxiety and/or Panic, Command Hallucinations, Impulsivity Family History: Change in treatment: Recent Inpatient Discharge Access to lethal methods: Step 2: Identify Protective Factors (Protective factors may not counteract significant acute suicide risk factors) Internal: Ability to [place] with Stress, Identifies Reasons for Living External: Step 3: Specific questioning about Thoughts, Plans, and Suicidal Intent - (see Step 1 for Ideation Severity and Behavior) C-SSRS Suicidal Ideation Intensity Month Frequency Daily or almost daily Duration 1-4 hours/a lot of time Controllability Can control thoughts with a lot of difficulty Deterrents Deterrents probably stopped you Reasons for Ideation Mostly to end or stop the pain (you couldn't go on living with the pain or howyou were feeling) Total Score Suicidal Ideation Intensity Total Score: 17 Step 4: Guidelines to Determine Level of Risk and Develop Interventions to LOWER Risk Level RISK STRATIFICATION TRIAGE High Suicide Risk Establish a therapeutic relationship, Complete Intake function and encounter for requested service,Discuss case presentation with staff providing medical care. Discuss with on-call psychiatrist or accepting hospital entity as needed., Document contact information in Intake encounter Moderate Suicide Risk Low Suicide Risk Step 5: Documentation Risk Level : Suicide Risk ( Initial Screening):: High Risk Actual risk determined to be : High Clinical Observation: When asked what brought the patient to the emergency department, he stated multiple times to family preservation officer that his medications need to be adjusted and he needs help. Pt stated he hasn't slept in 3 days, feels manic, has racing thoughts, and SI with a plan to overdose. Pt said he'salso hearing voices telling him to end it all and be done with it . He endorsed paranoia and seeing shadows. Fci through the assessment, family preservation officer noticed pt's eyes following nothing. When asked what pt was looking at, he said shadows. Pt reported staying at the [facility] and previously being addicted to alcohol (last use Thursday), meth (last use months ago), and opiates (years ago). Pt denied self-harm hx. He denied HI. Relevant Mental Status Evaluation: Intake spoke with the patient face to face. The patient was observed to be age appropriate and sitting on the edge of the bed with visible tremors. Mood was observed to be Anxious with a restricted affect in range. Speech was repetitive. Pt's thoughts were racing and tangential. Alert and oriented to person, place and time, with no loosening of associations. Methods of Suicide Risk Evaluation: SAFE-T, [place], clinical assessment Brief Evaluation Summary: Warning Signs: AH, substance abuse Risk Indicators: Substance abuse, poor medication adherence Protective Factors: supportive family, has peer support Access to Lethal Means: none Collateral Sources Used and Relevant Information Obtained: ED staff, Epic Specific Assessment Data to Support Risk Determination Rationale for Actions Taken and Not Taken: Suicidal Ideation Intensity Total Score: 17 Communication of Current Risk Stratification to: Current Medical Providers: Kate Bee PA-C Date 04/23/23 Time9:37am Psychiatrist security control room officer: Name: Dr. Patel Date: 04/23/23 Time: 10:57am Other Contact and Role: N/A INTERVENTIONS Psychiatry Consult Completed in This Episode of Care: No Sources of Information: Patient, Epic Patient Assessed by Intake via: Face to Face Coordination of care with: ED RN, ED NASH Interventions: Therapeutic Interventions Therapeutic Interventions: Crisis Intervention, Crisis Assessment Goals/Objectives: Admission to inpatient psychiatric unit for safety of patient and others, Admission to inpatient psychiatric unit for further evaluation and treatment of symptoms of illness DISPOSITION & PLAN: Patient Assessed by Intake via: Face to Face Patient stated goals: Goals: To feel safe, To have reduction in symptoms, To improve my functional status Coordination of Care with: ED RN, ED LIP Assessment/Impressions: Inpatient Need Plan: Consult with Psychiatry on-call, ED Psych consult, or other provider, Await medical clearance, Secure an inpatient bed Goals/Objectives: Admission to inpatient psychiatric unit for safety of patient and others, Admission to inpatient psychiatric unit for further evaluation and treatment of symptoms of illness Total time spent (minutes) in Supportive Care for this patient: 30 MEDICAL CLEARANCE Initial Date: 04/23/23 Initial Time: 1019 Reviewed medical history with physician: Yes Reviewed abnormal labs with physician: Yes Discussed case with Dr. Patel who states that Edward Crowder is a candidate for admission. Provider Stated Diagnosis: F25.0 Schizoaffective disorder, bipolar type Admitting Provider: Dr. Patel Admission Status: Full Admit Unit: [facility] Bed#: 45-1 Report Given To: SHELIA Cortez Report Date: 04/23/23 Report Time: 1120 Admission Type: Voluntary Is Patient Less Than 18 Years of Age or have a Guardian/Healthcare Power of Heel Cementer Machine?: No Disposition Date: 04/23/23 Disposition Time: 1131 SIGNATURE: Kate Chandler LPC PATIENT NAME: Edward Crowder DATE: April 23, 2023 TIME: 9:59 AM [facility] Discharge summary Author Naeem patel [facility] April 21, 2023 8:15am Note Date/Time April 21, 2023 8 :14am [facility] [address] [place] [address] Discharge Summary Signed Patient: Edward Crowder MR#: [id number] : 1970 Acct:[id number] Age/Sex: 52 / M Adm Date: 3 Loc: Room: [address] [place] [address]: Paulo Strauss MD Copies to: MD Paulo Rojo MD [facility]~ Providers Date of Discharge: 04/21/23 Discharging Provider: Naeem Rodriges Primary Care Provider: Services [facility] Consults: 04/15/23 15:55 Consult to Case Management Routine 04/15/23 16:48 Consult to Dietitian Routine Discharge Diagnosis (1) Major depressive disorder, recurrent, moderate: (2) Psychosis: Final Diagnosis Final Discharge Diagnosis: Major depressive disorder Summary Hospital Course Hospital course: Mr. Crwoder is a 52 year old male who presented due to concern for depression andsuicidal ideation. He wanted to overdose on meds or fentanyl. Upon assessment, patient reported that he has been feeling depressed. He statedthat he has been off his medications and was self-medicating. He reported that he felt himself become manic and he has not been sleeping. He reported having hallucinations that have been bothersome to him. He reported that he has been feeling depressed and has been having suicidal thoughts. He stated that he feels the medication was helpful for him when he was taking them. Past psych history: Anxiety, depression, hallucinations Past hospitalizations: Multiple prior psychiatric hospitalizations Past suicide attempts: 2 prior most recent being 1 year ago Family psych history: Substance use issues Previous medications: Depakote Invega Vistaril Zyprexa Alcohol and drug use: Alcohol and methamphetamines Living: Homeless Employment: Currently unemployed Review of symptoms: Constitutional: Denies chills and Denies fever(s) Eyes: Denies change in vision ENT: Denies abnormal hearing Cardiovascular: Denies chest pain Respiratory: Denies chest congestion and Denies cough Gastrointestinal: Denies change in bowel habits Genitourinary: Denies dysuria Musculoskeletal: Denies atrophy and Denies myalgias Integumentary/Breasts: Denies dry skin Neurologic: Denies abnormal gait and Denies abnormal movements Psychiatric: Reports depression and suicidal ideation. Reported hallucinations said his meds needed to adjusted. He said he is feeling better. We discussed importance of med compliance. Anxiety is moderate in intensity with attempted utilization of coping skills. He denies SI/HI and verbalized the intent to notify staff if he has such thoughts. His symptoms improving and his affect is becoming brighter. He continues to be compliant with prescribed medications and is visible within the unit milieu. He alluded to psychosocial stressors being the primary issue that he is struggling with. We have agreed to continue the current medications regimen. Risks, benefits, and indications of medications were discussed. He has no hx of recent attempts, and has been future oriented, participated in group activities, articulated needs appropriately, and displayed no self-harm behaviors. Imminent risk is low given factors noted above. Further inpatient hospitalization unlikely to mitigate chronic suicide risk, and pt agrees to f/u with outpatient psych care. All lab results discussed with patient. We also discussed prognosis of illness and importance of outpatient CBT. Discharge disposition: [facility] Appearance: dressed casually Mental Status: mental status grossly normal Mood: Euthymic mood Affect: Normal affect Speech and Movement: speech and movement normal and speech clear Attitude: cooperative Thought Process: normal Thought Content: Denied hallucinations, no homicidality and no suicidality Insight: fair Judgment: fair Impulse control: fair Time spent discussing smoking cessation with patient: more than 10 minutes Condition Condition at Discharge: Stable Status at Discharge Functional status at discharge: independent ambulation Time Spent with Patient Time spent providing/coordinating discharge services (# min): 39 Exam Physical Exam Vital Signs: Temp Pulse Resp BP Pulse Ox O2 Del Method 98.4 F 80 18 120/81 95 Room Air 04/20/23 20:03 04/20/23 20:03 04/20/23 20:03 04/20/23 20:03 04/20/23 20:03 04/20/23 20:03 Discharge Plan Discharge Plan Patient Disposition: Chemical Dependency Activity: No Activity Restriction Diet: Regular Prescriptions: New quetiapine 25 mg Tablet 25 mg PO TID PRN (Reason: anxiety) 30 Days Qty: 90 0RF ropinirole 0.25 mg Tablet 0.25 mg PO BID 30 Days Qty: 60 0RF ziprasidone HCl 40 mg Capsule 40 mg PO BID.WITH.BFAST.SUPPE 30 Days Qty: 60 0RF sertraline 50 mg Tablet 150 mg PO DAILY 30 Days Qty: 90 0RF cholecalciferol (vitamin D3) 25 mcg (1,000 unit) Tablet 50 mcg PO DAILY 30 Days Qty: 60 0RF doxepin 10 mg Capsule 10 mg PO TID 30 Days Qty: 90 0RF Continued hydroxyzine pamoate 50 mg Capsule 50 mg PO Q6H PRN (Reason: Anxiety) Qty: 60 0RF divalproex 500 mg Tablet Extended Release 24 Hr 500 mg PO BID 30 Days Qty: 60 0RF ferrous sulfate [FeroSul] 325 mg (65 mg iron) tablet 325 mg PO DAILY folic acid 1 mg tablet 1 mg PO DAILY omeprazole 40 mg capsule,delayed release(DR/EC) 40 mg PO DAILY Qty: 30 0RF Discontinued lisinopril 10 mg tablet 10 mg PO DAILY paliperidone [Invega] 9 mg tablet extended release 24 hr 9 mg PO QHS sertraline [Zoloft] 100 mg tablet 100 mg PO DAILY ropinirole 0.25 mg tablet 0.25 mg PO DAILY olanzapine [Zyprexa] 7.5 mg tablet 7.5 mg PO BID Certavite-Antioxidant 18-400 mg-mcg tablet 1 tab PO DAILY lurasidone [Latuda] 40 mg tablet 40 mg PO DAILY.WITH.SUPPER No Action trazodone 50 mg Tablet 50 mg PO QHS PRN (Reason: Insomnia) 30 Days Qty: 30 0RF Follow Up: [facility] [Other] (facility to manage all care until discharge from program) [facility] [Outside] Documented By: Naeem Rodriges MD 3 0813 Signed By: <Electronically signed by Naeem Rodriges MD> 04/21/23 0815 [facility] Work Phone: 1(830) 395-870610-09-2023 Progress note Author Naeem patel [facility] April 20, 2023 8:41am Note Date/Time April 20, 2023 8: 38am [facility] [address] [place] [address] Psychiatry Progress Note Signed Patient: Edward Crowder MR#: [id number] : 1970 Acct:[id number] Age/Sex: 52 / M Adm Date: 3 Loc: 1S Room: [address] [place] [address] Type : ADM IN Attending Dr: Paulo Strauss MD Copies to: ~ Date of Service: 04/20/2023 Subjective Subjective Narrative: Mr. Crowder reported that he is feeling a better and is less restless. He said hewill got a treatment center named [facility]. Anxiety is moderate in intensity. He reported that the hallucinations are improving but still feels paranoid. He denied any side effects of current medications. He had stopped taking his medications prior to admission and was self medicating with drugs andalcohol. He has no hx of recent attempts, and has been future oriented, wants to get a job, articulated needs appropriately, and is trying to manage his emotions. Imminent risk is low given factors noted above. Further inpatient hospitalization unlikely to mitigate chronic suicide risk, and pt agrees to f/u with outpatient psych care. All lab results discussed with patient. We also discussed prognosis of illness and importance of outpatient CBT. Appearance: dressed casually Mental Status: mental status grossly normal Mood: Restless mood Affect: Normal affect Speech and Movement: speech and movement normal and speech clear Attitude: Restless Thought Process: normal Thought Content: Denied hallucinations, no homicidality and no suicidality Insight: fair Judgment: fair Impulse control: fair Exam Physical Exam Vital Signs: Temp Pulse Resp BP Pulse Ox O2 Del Method 98.1 F 98 H 16 132/85 97 Room Air 04/20/23 07:30 04/20/23 07:30 04/20/23 07:30 04/20/23 07:30 04/20/23 07:30 04/20/23 07:30 Assessment/Plan Assessment/Plan (1) Major depressive disorder, recurrent, moderate: Code(s): F33.1 - Major depressive disorder, recurrent, moderate Status: Acute (2) Psychosis: Code(s): F29 - Unspecified psychosis not due to a substance or known physiological condition Status: Acute Plan Patient reports s doing better in the special care unit and denied SI/HI Continue Depakote 500 mg twice a day, Requip 0.5 mg twice a day, doxepin 10 mg 3times a day for anxiety, Zoloft 150 mg daily Depakote level was 71 on 04/19/2023 Continue Geodon 40 mg twice a day Continue to monitor mental status Encourage group participation and medication compliance Risk benefits alternatives explained Anticipate discharge tomorrow Documented By: Naeem Rodriges MD 3 0837 Signed By: <Electronically signed by Naeem Rodriges MD> 04/20/23 0841 [facility] Work Phone: 1(563) 204-270010-08-2023 Progress note Author Paulo Strauss [facility] April 19, 2023 11:49am Note Date/Time April 19, 2023 11 :49am [facility] [address] [place] [address] Psychiatry Progress Note Signed Patient: Edward Crowder MR#: [id number] : 1970 Acct:[id number] Age/Sex: 52 / M Adm Date: 3 Loc: Room: [address] [place] [address] Type : ADM IN Attending Dr: Paulo Strauss MD Copies to: ~ Date of Service: 04/19/2023 Subjective Subjective Narrative: Mr. Crowder reported that he is feeling a bit better. He tolerated the Geodon last night. He reported that the hallucinations are improving but still feels paranoid. He denied any side effects of current medications. He feels like hisanxiety is still high. Mental Status Exam: Appearance: grossly normal Mental Status: mental status grossly normal Mood: dysthymic and anxious mood Affect: dysphoric affect Speech and Movement: speech and movement normal and speech clear Attitude: cooperative Thought Process: normal Thought Content: Reported improvement hallucinations, no homicidality, reported suicidality. Reported paranoid thoughts Insight: fair Judgment: fair Exam Physical Exam Vital Signs: Temp Pulse Resp BP Pulse Ox O2 Del Method 98.2 F 93 H 16 125/89 97 Room Air 04/18/23 19:54 04/19/23 07:30 04/19/23 07:30 04/19/23 07:30 04/19/23 07:30 04/19/23 07:30 Assessment/Plan Assessment/Plan (1) Major depressive disorder, recurrent, moderate: Code(s): F33.1 - Major depressive disorder, recurrent, moderate Status: Acute (2) Psychosis: Code(s): F29 - Unspecified psychosis not due to a substance or known physiological condition Status: Acute Plan Patient seems to be a little bit less paranoid today. He also reported an improvement of his hallucinations. He is doing better in the special care unit Continue Depakote 500 mg twice a day, Requip 0.5 mg twice a day, doxepin 10 mg 3times a day for anxiety, Zoloft 150 mg daily Depakote level was 71 on 04/19/2023 Increase Geodon 40 mg twice a day Continue to monitor mental status Encourage group participation and medication compliance Risk benefits alternatives explained Documented By: Paulo Strauss MD 04/19/231147 Signed By: <Electronically signed by Paulo Strauss MD> 04/19/23 1149 [facility] Work Phone: 1(645) 700-515810-07-2023 Progress note Author Paulo Strauss [facility] April 18, 2023 12:11pm Note Date/Time April 18, 2023 12 :10pm [facility] [address] [place] [address] Psychiatry Progress Note Signed Patient: Edward Crowder MR#: [id number] : 1970 Acct:[id number] Age/Sex: 52 / M Adm Date: 3 Loc: 1S Room: [address] [place] [address] Type : ADM IN Attending Dr: Paulo Strauss MD Copies to: ~ Date of Service: 04/18/2023 Subjective Subjective Narrative: Mr. Crowder presented as very anxious today. He reported that he cannot calm down. He reported that he has been experiencing hallucinations. He was rockingback and forth and demanding an injection. He was finally able to get Geodon. He was moved back to special care because he reported that he was paranoid and feeling unsafe. Mental Status Exam: Appearance: grossly normal Mental Status: mental status grossly normal Mood: dysthymic and anxious mood Affect: dysphoric affect Speech and Movement: speech and movement normal and speech clear Attitude: cooperative Thought Process: normal Thought Content: Reported hallucinations, no homicidality, reported suicidality. Reported paranoid thoughts Insight: fair Judgment: fair Exam Physical Exam Vital Signs: Temp Pulse Resp BP Pulse Ox O2 Del Method 98.1 F 85 16 161/98 H 96 Room Air 04/18/23 07:30 04/18/23 07:30 04/18/23 07:30 04/18/23 07:30 04/18/23 07:30 04/18/23 07:30 Assessment/Plan Assessment/Plan (1) Major depressive disorder, recurrent, moderate: Code(s): F33.1 - Major depressive disorder, recurrent, moderate Status: Acute (2) Psychosis: Code(s): F29 - Unspecified psychosis not due to a substance or known physiological condition Status: Acute Plan Patient reported paranoia. He also reported having hallucinations Continue Depakote 500 mg twice a day, Requip 0.5 mg twice a day, doxepin 10 mg 3times a day for anxiety, Zoloft 150 mg daily We will obtain Depakote level in the morning Discontinue Latuda and start Geodon 20 mg twice a day Continue to monitor mental status Encourage group participation and medication compliance Risk benefits alternatives explained Documented By: Paulo Strauss MD 04/18/231208 Signed By: <Electronically signed by Paulo Strauss MD> 04/18/23 1211 [facility] Work Phone: 1(651) 200-616810-06-2023 Progress note Author Paulo Strauss [facility] April 17, 2023 12:49pm Note Date/Time April 17, 2023 12 :48pm [facility] [address] [place] [address] Psychiatry Progress Note Signed Patient: Edward Crowder MR#: [id number] : 1970 Acct:[id number] Age/Sex: 52 / M Adm Date: 3 Loc: Room: 9V4511-3 Type : ADM IN Attending Dr: Paulo Strauss MD Copies to: ~ Date of Service: 04/17/2023 Subjective Subjective Narrative: Mr. Crowder reported that he is feeling anxious and depressed. He reported that he has made some phone calls for rehab. However he stated that he wants to makesure he is mentally ready. He reported that he is feels agitated and on edge. He reported that he does not want to relapse and fall back on self-medicating. Mental Status Exam: Appearance: grossly normal Mental Status: mental status grossly normal Mood: dysthymic and anxious mood Affect: dysphoric affect Speech and Movement: speech and movement normal and speech clear Attitude: cooperative Thought Process: normal Thought Content: Reported hallucinations, no homicidality, reported suicidality Insight: fair Judgment: fair Exam Physical Exam Vital Signs: Temp Pulse Resp BP Pulse Ox O2 Del Method 98.4 F 86 18 126/83 96 Room Air 04/17/23 07:30 04/17/23 07:30 04/17/23 07:30 04/17/23 07:30 04/17/23 07:30 04/17/23 07:30 Assessment/Plan Assessment/Plan (1) Major depressive disorder, recurrent, moderate: Code(s): F33.1 - Major depressive disorder, recurrent, moderate Status: Acute (2) Psychosis: Code(s): F29 - Unspecified psychosis not due to a substance or known physiological condition Status: Acute Plan Patient still reported some ongoing anxiety and feeling depressed Continue Depakote 500 mg twice a day, Latuda 40 mg daily, Requip 0.5 mg twice a day, BuSpar 20 mg 3 times a day for anxiety Increase Zoloft 150 mg daily Continue to monitor mental status Encourage group participation and medication compliance Risk benefits alternatives explained Documented By: Paulo Strauss MD 04/17/231246 Signed By: <Electronically signed by Paulo Strauss MD> 04/17/23 124 [facility] Work Phone: 1(987) 285-878310-05-2023 History and physical note Author Paulo Strauss [facility] April 16, 2023 1:34pm Note Date/Time April 15, 2023 12 :49pm [facility] [address] [place] [address] Psychiatry H&P Signed with Sheyla Patient: Edward Crowder MR#: [id number] : 1970 Acct:[id number] Age/Sex: 52 / M Adm Date: 3 Loc: Room: [address] [place] [address] Type: ADM IN Attending Dr: Paulo Strauss MD Copies to: Paulo Strauss MD [facility]~ ADDENDUM1 Buspirone was not started Addendum Documented By: Paulo Strauss MD 04/16/231332 Addendum Signed By: <Electronically signed by Paulo Strauss MD> 04/16/231332 Date of Service: 04/15/2023 HPI History of Present Illness History of present illness: Mr. Crowder is a 52 year old male who presented due to concern for depression andsuicidal ideation. He wanted to overdose on meds or fentanyl. Upon assessment, patient reported that he has been feeling depressed. He statedthat he has been off his medications and was self-medicating. He reported that he felt himself become manic and he has not been sleeping. He reported having hallucinations that have been bothersome to him. He reported that he has been feeling depressed and has been having suicidal thoughts. He stated that he feels the medication was helpful for him when he was taking them. Past psych history: Anxiety, depression, hallucinations Past hospitalizations: Multiple prior psychiatric hospitalizations Past suicide attempts: 2 prior most recent being 1 year ago Family psych history: Substance use issues Previous medications: Depakote Invega Vistaril Zyprexa Alcohol and drug use: Alcohol and methamphetamines Living: Homeless Employment: Currently unemployed Review of symptoms: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 LORazepam 2 mg injection (ATIVAN) 2 mg INTRAMUSCULAR q 4 H PRN haloperidol 5 mg tab(s) (HALDOL) 5 mg ORAL q 4 H PRN Or haloperidol lactate 5 mg short-acting injection (HALDOL) 5 mg INTRAMUSCULAR q 4 H PRN hydrOXYzine HCl 50 mg tab(s) (ATARAX) 50 mg ORAL q 6 H PRN acetaminophen 650 mg tab(s) (TYLENOL) 650 mg ORAL q 6 H PRN aluminum-magnesium hydroxide-simethicone 200-200-20 mg/5 mL 30 mL 30 mL ORAL q 4 H PRN magnesium hydroxide 400 mg/5 mL 30 mL (MOM) 30 mL ORAL DAILY PRN lisinopril 10 mg tab(s) (ZESTRIL) 10 mg ORAL DAILY gabapentin 800 mg cap(s) (NEURONTIN) 800 mg ORAL q 12 H divalproex ER 500 mg tab(s) (DEPAKOTE ER) 500 mg ORAL BID rOPINIRole 0.25 mg tab(s) (REQUIP) 0.25 mg ORAL AT BEDTIME ziprasidone 80 mg cap(s) (GEODON) 80 mg ORAL BID w MEALS pantoprazole DR 20 mg tab(s) (PROTONIX) 20 mg ORAL DAILY (6 AM) doxepin 25 mg cap(s) (SINEquan) 25 mg ORAL AT BEDTIME PRN DATA: Diagnostic tests reviewed for today's visit: Most recent labs and imaging results. VPA 42 03/12 TSH Date Value 03/08/2023 0.476 mIU/L 03/17/2011 0.295 uU/mL ) Hemoglobin A1C (%) Date Value 03/07/2023 4.9 ) Cholesterol, Total (mg/dL) Date Value 03/07/2023 132 HDL Cholesterol (mg/dL) Date Value 03/07/2023 45 LDL Cholesterol (mg/dL) Date Value 03/07/2023 79 Triglyceride (mg/dL) Date Value 03/07/2023 41 Sodium Date Value Ref Range Status 03/06/2023 137 136 - 144 mmol/L Final 03/17/2011 138 135 - 146 mmol/L Final 10/21/2010 138 135 - 146 mmol/L Final Creatinine Date Value Ref Range Status 03/06/2023 1.16 0.73 - 1.22 mg/dL Final 03/17/2011 1.10 0.70 - 1.40 mg/dL Final 10/21/2010 0.97 0.7 - 1.4 mg/dL Final Vitamin D 25 Hydroxy (ng/mL) Date Value 03/08/2023 36.2 03/17/2011 39.7 ] AST Date Value Ref Range Status 03/06/2023 24 14 - 40 U/L Final ALT Date Value Ref Range Status 03/06/2023 30 10 - 54 U/L Final Assessment/Plan DIAGNOSIS: PRIMARY: Schizoaffective Disorder, bipolar type Amphetamine dependence RLS - iron studies ordered GAF: -30-21 Behavior is considerably influenced by delusions or hallucination or serious impairment in communication or judgment RISK ASSESSMENT: Suicide: low Homicide: low Deliberate Self-Harm: moderate Aggression: moderate Imminent Physical Self Impairment: moderate INFORMED CONSENT: Yes, completed with the Patient. Discussed the risks, benefits and alternatives to the medication(s) recommended. Consent was given. INTERVENTION: Biological: Continue depakote 500mg BID Continue geodon 80mg BID gabapentin 800mg BID requip 0.25mg HS for restless legs Discontinue Doxepin 25mg HS PRN Start Remeron 7.5 gm QHS PRN insomnia (more content not included)...[facility]09-01-2023 NoteHNO ID: [id number] Author: Derrick Juarez MD Service: Psychiatry Author Type: Physician Type: Progress Notes Filed: 03/13/2023 11:05 AM Note Text: PROGRESS NOTE BEHAVIORAL HEALTH SERVICE DATE: 03/13/2023 SERVICE TIME: 10:11 AM The Interdisciplinary team met and reviewed treatment goals and discharge planning. CC: psychosis Subjective Patient reports he slept poorly last night. He had heartburn. He then started getting this paranoid feeling and mind starts racing. I thinking about all sorts of crazy stuff. He starts not wanting to be around others, keep back to the wall. Continues to endorse AH. He did not take the trazodone last night because he was afraid of getting restless legs. He is feeling better in terms of GI upset this AM. Started protonix. Per nursing: Daily Note:1929: Assumed care of pt. 1999: Pt in day area eating snack and watching tv. Pt denied SI/HI/VH. Pt reports intermittently hearing voices telling him to run. 2057: Pt took scheduled medications without incident. Pt declined PRN trazodone. 243:Pt reports heartburn and indigestion, says the salsa from lasts night snack was too much. Pt received PRN atarax AND aluminum-magnesium hydroxide-simethicone. 544: Pt reports heartburn and indigestion again. Medical house was paged and a request for additional medication for pt's symptoms was requested. Pt given additional pillow to elevate head. 615: Pt slept approx 6 hours on and off during the shift. Objective PHYSICAL EXAM: BP 123/78 Pulse 87 Temp 36.5 ?C (97.7 ?F) Resp 16 Ht 170.2 cm (5' 7 ) Wt 90.7 kg (200 lb) SpO2 97% BMI 31.32 kg/m? MENTAL STATUS EXAMINATION: Appearance: Casually dressed and Appears stated age Behavior: cooperative Orientation: Person, Place, Time and Situation Speech/Language: normal rate, volume Mood/Affect: anxious Thought Form: linear Thought Content: +AH, paranoid Suicidal Ideations: No suicidal ideation, intent or plan. Homicidal Ideations: No homicidal ideation, intent or plan. Insight: Poor Judgment: Grossly impaired Memory/Cognition: Intact Psychomotor: normal NEW PROBLEMS ON UNIT SINCE LAST ENCOUNTER: see above Current Facility-Administered Medications Medication Dose Route Frequency nicotine polacrilex 2 mg gum (NICORETTE) 2 mg ORAL q 2 H PRN LORazepam 2 mg (ATIVAN) 2 mg ORAL q 4 H PRN Or LORazepam 2 mg injection (ATIVAN) 2 mg INTRAMUSCULAR q 4 H PRN haloperidol 5 mg tab(s) (HALDOL) 5 mg ORAL q 4 H PRN Or haloperidol lactate 5 mg short-acting injection (HALDOL) 5 mg INTRAMUSCULAR q 4 H PRN traZODone 50 mg tab(s) (DESYREL) 50 mg ORAL AT BEDTIME PRN hydrOXYzine HCl 50 mg tab(s) (ATARAX) 50 mg ORAL q 6 H PRN acetaminophen 650 mg tab(s) (TYLENOL) 650 mg ORAL q 6 H PRN aluminum-magnesium hydroxide-simethicone 200-200-20 mg/5 mL 30 mL 30 mL ORAL q 4 H PRN magnesium hydroxide 400 mg/5 mL 30 mL (MOM) 30 mL ORAL DAILY PRN lisinopril 10 mg tab(s) (ZESTRIL) 10 mg ORAL DAILY gabapentin 800 mg cap(s) (NEURONTIN) 800 mg ORAL q 12 H divalproex ER 500 mg tab(s) (DEPAKOTE ER) 500 mg ORAL BID rOPINIRole 0.25 mg tab(s) (REQUIP) 0.25 mg ORAL AT BEDTIME ziprasidone 80 mg cap(s) (GEODON) 80 mg ORAL BID w MEALS pantoprazole DR 20 mg tab(s) (PROTONIX) 20 mg ORAL DAILY (6 AM) DATA: Diagnostic tests reviewed for today's visit: Most recent labs and imaging results. VPA 42 03/12 TSH Date Value 03/08/2023 0.476 mIU/L 03/17/2011 0.295 uU/mL ) Hemoglobin A1C (%) Date Value 03/07/2023 4.9 ) Cholesterol, Total (mg/dL) Date Value 03/07/2023 132 HDL Cholesterol (mg/dL) Date Value 03/07/2023 45 LDL Cholesterol (mg/dL) Date Value 03/07/2023 79 Triglyceride (mg/dL) Date Value 03/07/2023 41 Sodium Date Value Ref Range Status 03/06/2023 137 136 - 144 mmol/L Final 03/17/2011 138 135 - 146 mmol/L Final 10/21/2010 138 135 - 146 mmol/L Final Creatinine Date Value Ref Range Status 03/06/2023 1.16 0.73 - 1.22 mg/dL Final 03/17/2011 1.10 0.70 - 1.40 mg/dL Final 10/21/2010 0.97 0.7 - 1.4 mg/dL Final Vitamin D 25 Hydroxy (ng/mL) Date Value 03/08/2023 36.2 03/17/2011 39.7 ] AST Date Value Ref Range Status 03/06/2023 24 14 - 40 U/L Final ALT Date Value Ref Range Status 03/06/2023 30 10 - 54 U/L Final Assessment/Plan DIAGNOSIS: PRIMARY: Schizoaffective Disorder, bipolar type Amphetamine dependence GAF: -30-21 Behavior is considerably influenced by delusions or hallucination or serious impairment in communication or judgment RISK ASSESSMENT: Suicide: low Homicide: low Deliberate Self-Harm: moderate Aggression: moderate Imminent Physical Self Impairment: moderate INFORMED CONSENT: Yes, completed with the Patient. Discussed the risks, benefits and alternatives to the medication(s) recommended. Consent was given. INTERVENTION: Biological: Continue depakote 500mg BID Continue geodon 80mg BID gabapentin 800mg BID (more content not included)...[facility]08-31-2023 NoteHNO ID: [id number] Author: Ashish Lopez RN Service: ? Author Type: Registered Nurse Type: Progress Notes Filed: 03/13/2023 6:16 AM Note Text: Nursing Progress Note Patient Name: Edward Crowder Patient Location: [id number] Daily Note:1929: Assumed care of pt. 1999: Pt in day area eating snack and watching tv. Pt denied SI/HI/VH. Pt reports intermittently hearing voices telling him to run. 2057: Pt took scheduled medications without incident. Pt declined PRN trazodone. 0244:Pt reports heartburn and indigestion, says the salsa from lasts night snack was too much. Pt received PRN atarax AND aluminum-magnesium hydroxide-simethicone. 0545: Pt reports heartburn and indigestion again. Medical house was paged and a request for additional medication for pt's symptoms was requested. Pt given additional pillow to elevate head. 16: Pt slept approx 6 hours on and off during the shift. This note was completed by: Ashish [facility]08-31-2023 NoteHNO ID: [id number] Author: Derrick Juarez MD Service: Psychiatry Author Type: Physician Type: Progress Notes Filed: 03/12/2023 10:39 AM Note Text: PROGRESS NOTE BEHAVIORAL HEALTH SERVICE DATE: 03/12/2023 SERVICE TIME: 9:59 AM The Interdisciplinary team met and reviewed treatment goals and discharge planning. CC: psychosis Subjective Patient reports he is still hearing people talking. They tell him to run, keep running. They are not constant all day. It can randomly start when sitting watching TV. He reports AH has slowed up some. He has sober a month now. He has had many losses in his life and never processed it (loss of son, , step daughter). He has the support of a friend he has known since high school who is sober. He is PRC currently. He is motivated to remain sober as he sees how his meth use has caused these symptoms. Patient is more talkative today, less paranoid. Per nursin received report and assumed care. Patient pleasant and cooperative. Disheveled appearance. Compliant with vital assessment and most medications. Refused Buspar and Trazodone. Denies pain, suicidal and homicidal ideations. Denied visual hallucinations , reported auditory hallucinations unable to describe voices. Denied delusions and command hallucinations. 0600 patient slept for 10 hours safety checks maintained. Daily Note: - Patient has been in his room self isolating most of this shift. Disheveled in his personal appearance and was late getting up today. Usually patient is in the Day Area early am. When he did get up patient appeared sleepy. Had been given Ativan 2 mg po at 2227. Does endorse command hallucinations telling him to Kill and Run Presently, has no intentions of acting on the voices Also, late for his lunch. Compliant with morning medications but continues to refuse Buspar. Account Consultant did not notice any restless legs today. [id number] been sleeping most of this shift. Did get up for dinner and immediately return to his room. Will continue to encourage patient to verbalize feelings and to use appropriate coping skills. Does contract for safety on the unit. Broset score - 0. Minimal risk for violence. Objective PHYSICAL EXAM: BP 124/79 Pulse 80 Temp 36.3 ?C (97.3 ?F) (Oral) Resp 16 Ht 170.2 cm (5' 7 ) Wt 90.7 kg (200 lb) SpO2 97% BMI 31.32 kg/m? MENTAL STATUS EXAMINATION: Appearance: Casually dressed and Appears stated age Behavior: cooperative Orientation: Person, Place, Time and Situation Speech/Language: normal rate, volume Mood/Affect: sad Thought Form: linear Thought Content: +AH Suicidal Ideations: No suicidal ideation, intent or plan. Homicidal Ideations: No homicidal ideation, intent or plan. Insight: Poor Judgment: Grossly impaired Memory/Cognition: Intact Psychomotor: normal NEW PROBLEMS ON UNIT SINCE LAST ENCOUNTER: see above Current Facility-Administered Medications Medication Dose Route Frequency nicotine polacrilex 2 mg gum (NICORETTE) 2 mg ORAL q 2 H PRN LORazepam 2 mg (ATIVAN) 2 mg ORAL q 4 H PRN Or LORazepam 2 mg injection (ATIVAN) 2 mg INTRAMUSCULAR q 4 H PRN haloperidol 5 mg tab(s) (HALDOL) 5 mg ORAL q 4 H PRN Or haloperidol lactate 5 mg short-acting injection (HALDOL) 5 mg INTRAMUSCULAR q 4 H PRN traZODone 50 mg tab(s) (DESYREL) 50 mg ORAL AT BEDTIME PRN hydrOXYzine HCl 50 mg tab(s) (ATARAX) 50 mg ORAL q 6 H PRN acetaminophen 650 mg tab(s) (TYLENOL) 650 mg ORAL q 6 H PRN aluminum-magnesium hydroxide-simethicone 200-200-20 mg/5 mL 30 mL 30 mL ORAL q 4 H PRN magnesium hydroxide 400 mg/5 mL 30 mL (MOM) 30 mL ORAL DAILY PRN lisinopril 10 mg tab(s) (ZESTRIL) 10 mg ORAL DAILY gabapentin 800 mg cap(s) (NEURONTIN) 800 mg ORAL q 12 H divalproex ER 500 mg tab(s) (DEPAKOTE ER) 500 mg ORAL BID rOPINIRole 0.25 mg tab(s) (REQUIP) 0.25 mg ORAL AT BEDTIME traZODone 50 mg tab(s) (DESYREL) 50 mg ORAL AT BEDTIME busPIRone 10 mg tab(s) (BUSPAR) 10 mg ORAL BID ziprasidone 80 mg cap(s) (GEODON) 80 mg ORAL BID w MEALS DATA: Diagnostic tests reviewed for today's visit: Most recent labs and imaging results. TSH Date Value 03/08/2023 0.476 mIU/L 03/17/2011 0.295 uU/mL ) Hemoglobin A1C (%) Date Value 03/07/2023 4.9 ) Cholesterol, Total (mg/dL) Date Value 03/07/2023 132 HDL Cholesterol (mg/dL) Date Value 03/07/2023 45 LDL Cholesterol (mg/dL) Date Value 03/07/2023 79 Triglyceride (mg/dL) Date Value 03/07/2023 41 Sodium Date Value Ref Range Status 03/06/2023 137 136 - 144 mmol/L Final 03/17/2011 138 135 - 146 mmol/L Final 10/21/2010 138 135 - 146 mmol/L Final Creatinine Date Value Ref Range Status 03/06/2023 1.16 0.73 - 1.22 mg/dL Final 03/17/2011 1.10 0.70 - 1.40 mg/dL Final 10/21/2010 0.97 0.7 - 1.4 mg/dL Final Vitamin D 25 Hydroxy (ng/mL) Date Value 03/08/2023 36.2 03/17/2011 3 (more content not included)...[facility]08-30-2023 NoteHNO ID: [id number] Author: Derrick Juarez MD Service: Psychiatry Author Type: Physician Type: Progress Notes Filed: 03/11/2023 1:58 PM Note Text: PROGRESS NOTE BEHAVIORAL HEALTH SERVICE DATE: 03/11/2023 SERVICE TIME: 11:02 AM The Interdisciplinary team met and reviewed treatment goals and discharge planning. CC: psychosis Subjective Patient reports he is still hearing the voices - they tell him to run or . Then other times it is just mumbling. Possibly slight decrease in loudness. They remain very upsetting him. He just wants it to stop. He could not sleep last night, up/down. He will give geodon another day to see if gets better. It has never been this bad. He is sad, anxious. Per nursing: Daily Note: 193: RN assumed care of pt after receiving report from previous shift. Safety checks maintained per unit protocol. 2009: Pt in day area; disheveled; pleasant, anxious, preoccupied/internally stimulated; in control. Pt does not endorse SI/HI/VH, but endorses command AH of voices telling him to kill and to run. Pt reports he has no plan or intent to harm himself or anyone else; pt contracts for safety. RN instructed pt to let staff know immediately if any change in mood/hallucinations; pt verbalized understanding. Pt requesting to have his own private room; pt reports being bothered by his current roommate - pt does not wish to elaborate on any further details. Pt compliant w/scheduled medication administration, but declined scheduled Buspar. RN administered PRN Haldol 5 mg PO as ordered for agitation and PRN Atarax 50 mg PO as ordered for anxiety per pt request. 2100: Pt sleeping comfortably on bed with eyes closed; no signs or symptoms of distress, respirations even and unlabored. 7: Pt restless, preoccupied, and anxious. Pt woke up reporting anxiety, continued AH, and racing thoughts. Pt requesting PRN medication. RN administered PRN Ativan 2 mg PO as ordered for anxiety/agitation. 2330: Pt sleeping. 0600: Pt slept 8 hours. Safety checks maintained per unit protocol. RN will give report to oncoming staff. Broset score = 0 with the risk of violence being small. Objective PHYSICAL EXAM: BP 130/79 Pulse 80 Temp 36.4 ?C (97.5 ?F) (Oral) Resp 16 Ht 170.2 cm (5' 7 ) Wt 90.7 kg (200 lb) SpO2 97% BMI 31.32 kg/m? MENTAL STATUS EXAMINATION: Appearance: Casually dressed and Appears stated age Behavior: hopeless Orientation: Person, Place, Time and Situation Speech/Language: normal rate, volume Mood/Affect: sad Thought Form: Tangential Thought Content: Delusions: Paranoid Hallucinations: Auditory Suicidal Ideations: No suicidal ideation, intent or plan. Homicidal Ideations: No homicidal ideation, intent or plan. Insight: Poor Judgment: Grossly impaired Memory/Cognition: Intact Psychomotor: Agitated NEW PROBLEMS ON UNIT SINCE LAST ENCOUNTER: Yes, multiple doses of atarax, haldol Current Facility-Administered Medications Medication Dose Route Frequency nicotine polacrilex 2 mg gum (NICORETTE) 2 mg ORAL q 2 H PRN LORazepam 2 mg (ATIVAN) 2 mg ORAL q 4 H PRN Or LORazepam 2 mg injection (ATIVAN) 2 mg INTRAMUSCULAR q 4 H PRN haloperidol 5 mg tab(s) (HALDOL) 5 mg ORAL q 4 H PRN Or haloperidol lactate 5 mg short-acting injection (HALDOL) 5 mg INTRAMUSCULAR q 4 H PRN traZODone 50 mg tab(s) (DESYREL) 50 mg ORAL AT BEDTIME PRN hydrOXYzine HCl 50 mg tab(s) (ATARAX) 50 mg ORAL q 6 H PRN acetaminophen 650 mg tab(s) (TYLENOL) 650 mg ORAL q 6 H PRN aluminum-magnesium hydroxide-simethicone 200-200-20 mg/5 mL 30 mL 30 mL ORAL q 4 H PRN magnesium hydroxide 400 mg/5 mL 30 mL (MOM) 30 mL ORAL DAILY PRN lisinopril 10 mg tab(s) (ZESTRIL) 10 mg ORAL DAILY gabapentin 800 mg cap(s) (NEURONTIN) 800 mg ORAL q 12 H divalproex ER 500 mg tab(s) (DEPAKOTE ER) 500 mg ORAL BID rOPINIRole 0.25 mg tab(s) (REQUIP) 0.25 mg ORAL AT BEDTIME traZODone 50 mg tab(s) (DESYREL) 50 mg ORAL AT BEDTIME busPIRone 10 mg tab(s) (BUSPAR) 10 mg ORAL BID ziprasidone 80 mg cap(s) (GEODON) 80 mg ORAL BID w MEALS DATA: Diagnostic tests reviewed for today's visit: Most recent labs and imaging results. TSH Date Value 03/08/2023 0.476 mIU/L 03/17/2011 0.295 uU/mL ) Hemoglobin A1C (%) Date Value 03/07/2023 4.9 ) Cholesterol, Total (mg/dL) Date Value 03/07/2023 132 HDL Cholesterol (mg/dL) Date Value 03/07/2023 45 LDL Cholesterol (mg/dL) Date Value 03/07/2023 79 Triglyceride (mg/dL) Date Value 03/07/2023 41 Sodium Date Value Ref Range Status 03/06/2023 137 136 - 144 mmol/L Final 03/17/2011 138 135 - 146 mmol/L Final 10/21/2010 138 135 - 146 mmol/L Final Creatinine Date Value Ref Range Status 03/06/2023 1.16 0.73 - 1.22 mg/dL Final 03/17/2011 1.10 0.70 - 1.40 mg/dL Final 10/21/2010 0.97 0.7 - 1.4 mg/dL Final Vitamin D 25 Hydroxy (ng/mL) Date Value 03/08/2023 36.2 03/17/2011 39.7 ] AST Date Value Ref Range (more content not included)...[facility]08-29-2023 NoteHNO ID: [id number] Author: Derrick Juarez MD Service: Psychiatry Author Type: Physician Type: Progress Notes Filed: 03/10/2023 1:48 PM Note Text: PROGRESS NOTE BEHAVIORAL HEALTH SERVICE DATE: 03/10/2023 SERVICE TIME: 12:30 PM The Interdisciplinary team met and reviewed treatment goals and discharge planning. CC: psychosis Subjective Patient was very paranoid about why he had not seen this provider earlier. He was asking staff repeatedly about where I was and why I left the unit. He continues to hear voices and see things which are very upsetting to him. He wonders if using IV meth for 6 years may have caused this. He is very restless, fidgety, anxious. He is willing to make changes to medications, anything to make the voices stop. He refused the trazodone last night - explained I had added in the requip as well which he requested so he could take trazodone. Per nursing: Daily Note:1950 Assumed care of patient, received report from day shift nurse. 2030 Patient up in day area, AANDOX3, mostly stays to himself, cooperative with VS, polite and social when talked to. Disheveled appearance, stated he has AH, but would not state what they were. Denies Sl/Hl at this time. Took his medications, refused Trazodone and Buspar, stated it gives him restless leg, but he has not told anyone, will pass this onto day shift in report. Patient had his snack then went to bed. Safety checks per unit protocol. 0100 Patient sleeping 0630 Patient slept 8 hours so far 0700 Gave report to day shift nurse. BROSETT Score: 0, risk for violence is small Objective PHYSICAL EXAM: BP 130/79 Pulse 80 Temp 36.4 ?C (97.5 ?F) (Oral) Resp 22 Ht 170.2 cm (5' 7 ) Wt 90.7 kg (200 lb) SpO2 97% BMI 31.32 kg/m? MENTAL STATUS EXAMINATION: Appearance: Casually dressed and Appears stated age Behavior: suspicious, Psychomotorly Agitated Orientation: Person, Place, Time and Situation Speech/Language: normal rate, volume Mood/Affect: irritable/labile Thought Form: Tangential Thought Content: Delusions: Paranoid Hallucinations: Auditory Suicidal Ideations: No suicidal ideation, intent or plan. Homicidal Ideations: No homicidal ideation, intent or plan. Insight: Poor Judgment: Grossly impaired Memory/Cognition: Intact Psychomotor: Agitated NEW PROBLEMS ON UNIT SINCE LAST ENCOUNTER: Yes, multiple doses of atarax, haldol Current Facility-Administered Medications Medication Dose Route Frequency nicotine polacrilex 2 mg gum (NICORETTE) 2 mg ORAL q 2 H PRN LORazepam 2 mg (ATIVAN) 2 mg ORAL q 4 H PRN Or LORazepam 2 mg injection (ATIVAN) 2 mg INTRAMUSCULAR q 4 H PRN haloperidol 5 mg tab(s) (HALDOL) 5 mg ORAL q 4 H PRN Or haloperidol lactate 5 mg short-acting injection (HALDOL) 5 mg INTRAMUSCULAR q 4 H PRN traZODone 50 mg tab(s) (DESYREL) 50 mg ORAL AT BEDTIME PRN hydrOXYzine HCl 50 mg tab(s) (ATARAX) 50 mg ORAL q 6 H PRN acetaminophen 650 mg tab(s) (TYLENOL) 650 mg ORAL q 6 H PRN aluminum-magnesium hydroxide-simethicone 200-200-20 mg/5 mL 30 mL 30 mL ORAL q 4 H PRN magnesium hydroxide 400 mg/5 mL 30 mL (MOM) 30 mL ORAL DAILY PRN lisinopril 10 mg tab(s) (ZESTRIL) 10 mg ORAL DAILY gabapentin 800 mg cap(s) (NEURONTIN) 800 mg ORAL q 12 H divalproex ER 500 mg tab(s) (DEPAKOTE ER) 500 mg ORAL BID ziprasidone 60 mg cap(s) (GEODON) 60 mg ORAL BID w MEALS rOPINIRole 0.25 mg tab(s) (REQUIP) 0.25 mg ORAL AT BEDTIME traZODone 50 mg tab(s) (DESYREL) 50 mg ORAL AT BEDTIME busPIRone 10 mg tab(s) (BUSPAR) 10 mg ORAL BID DATA: Diagnostic tests reviewed for today's visit: Most recent labs and imaging results. TSH Date Value 03/08/2023 0.476 mIU/L 03/17/2011 0.295 uU/mL ) Hemoglobin A1C (%) Date Value 03/07/2023 4.9 ) Cholesterol, Total (mg/dL) Date Value 03/07/2023 132 HDL Cholesterol (mg/dL) Date Value 03/07/2023 45 LDL Cholesterol (mg/dL) Date Value 03/07/2023 79 Triglyceride (mg/dL) Date Value 03/07/2023 41 Sodium Date Value Ref Range Status 03/06/2023 137 136 - 144 mmol/L Final 03/17/2011 138 135 - 146 mmol/L Final 10/21/2010 138 135 - 146 mmol/L Final Creatinine Date Value Ref Range Status 03/06/2023 1.16 0.73 - 1.22 mg/dL Final 03/17/2011 1.10 0.70 - 1.40 mg/dL Final 10/21/2010 0.97 0.7 - 1.4 mg/dL Final Vitamin D 25 Hydroxy (ng/mL) Date Value 03/08/2023 36.2 03/17/2011 39.7 ] AST Date Value Ref Range Status 03/06/2023 24 14 - 40 U/L Final ALT Date Value Ref Range Status 03/06/2023 30 10 - 54 U/L Final Assessment/Plan DIAGNOSIS: PRIMARY: Schizoaffective Disorder, bipolar type Amphetamine dependence GAF: -30-21 Behavior is considerably influenced by delusions or hallucination or serious impairment in communication or judgment RISK ASSESSMENT: Suicide: low Homicide: low Deliberate Self-Harm: moderate Aggression: moderate Imminent Physical Self Impairment: high INFORMED CONSENT: Yes, complet (more content not included)...[facility] 03-09-2023 NoteHNO ID: [id number] Author: Netta, Eusebio, RN Service: Nursing Author Type: Registered Nurse Type: Progress Notes Filed: 03/09/2023 4:31 PM Note Text: 1629 - Assumed care of patient at 1530. Patient at this time c/o increasing anxiety, c/o increasing AH. Given prn Ativan together with scheduled Geodon. Behavior otherwise in control. No c/o SI/HI.[facility] 03-09-2023 NoteHNO ID: [id number] Author: Derrick Juarez MD Service: Psychiatry Author Type: Physician Type: Progress Notes Filed: 03/09/2023 11:20 AM Note Text: PROGRESS NOTE BEHAVIORAL HEALTH SERVICE DATE: 03/09/2023 SERVICE TIME: 10:32 AM The Interdisciplinary team met and reviewed treatment goals and discharge planning. CC: psychosis Subjective Patient he is hearing the same voices, muffled, tell me to run and get away from demons, they are everywhere He sees them at night. He would like to continue to adjust dose of geodon. He says he already saw me this morning at the nursing station which is untrue. Explained that I saw him yesterday morning at nursing station when he was very distressed. He says this is untrue, he perseverates on this, becoming increasingly irritated and paranoid. He is highly suspicious. Received PRN haldol and ativan overnight and this morning. Per nursing: Daily Note: Report on pt received, care assumed. Pt sleeping in room at this time. 1821: Pt woke up for dinner, pt took Geodon as scheduled. Shortly after, pt requested Haldol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 inpatient bed Goals/Objectives: Admission to inpatient psychiatric unit for safety of patient and others Total time spent (minutes) in Supportive Care for this patient: 45 MEDICAL CLEARANCE Initial Date: 03/06/23 Initial Time: 1752 Reviewed medical history with physician: Yes Reviewed abnormal labs with physician: Yes Discussed case with Dr. Patel who states that Edward Crowder is a candidate for admission. Provider Stated Diagnosis: Schizoaffective, Bipolar Type Admitting Provider: Dr. Patel Admission Status: Full Admit Unit: [place] [address] Bed#: 148-2 Report Given To: SHELIA Romano Report Date: 03/06/23 Report Time: 2101 Admission Type: Medical Certificate Is Patient Less Than 18 Years of Age or have a Guardian/Healthcare Power of Heel Cementer Machine?: No Disposition Date: 03/06/23 Disposition Time: 2154 SIGNATURE: LEONARDA Silverio PATIENT NAME: Edward Crowder DATE: March 06, 2023 TIME: 6:21 PM [facility] Discharge summary Author Paulo Strauss [facility] February 17, 2023 2:15pm Note Date/Time February 17, 2023 10: 39am [facility] [address] [place] [address] Discharge Summary Signed Patient: Edward Crowder MR#: [id number] : 1970 Acct:[id number] Age/Sex: 52 / M Adm Date: 3 Loc: Room: [address] [place] [address]: Thuy Rodriges MD Copies to: MD Paulo Rojo MD [facility]~ Providers Date of Discharge: 02/17/23 Discharging Provider: Paulo Strauss Primary Care Provider: Services [facility] Discharge Diagnosis (1) Polysubstance abuse: (2) Suicidal ideation: (3) Insomnia: (4) Depression: (5) Bipolar depression: Final Diagnosis Final Discharge Diagnosis: Assessment bipolar disorder Summary Hospital Course Hospital course: According to admission note: This is a 52-year-old male with reported history ofdepression, anxiety, panic disorder, suicidal ideation, insomnia and illicit drug use who presents for inpatient admission due to worsening of depression, anxiety, risk of relapse and feeling suicidal.? Reportedly, patient checked himself in attesting to thoughts of self-harm and potential for illicit drug usespecifically methamphetamine and alcohol.? Patient states he is also concerned with postacute withdrawal syndrome like illness. Patient was personally seen by me on the day of the encounter.? I reviewed the history and performed the amador elements of the assessment.? I formulated the planof care and confirmed this with the Resident as noted below At this time of the interview, he presented as anxious, worried but motivated.? He reports a longstanding history of major depressive disorder and anxiety manifested as illicit drug use/dependence and suicidal ideation.? Patient attested to 2 prior attempts at 16 years old and a year ago at 51 years old.? Patient attests to prior detox admissions to [facility]: Most recent (98 days), May 2022. Patient states his drug use was provoked by life stressors pertaining to loss ofloved ones.? Patient states he lost his son at 19 years old from a brain cancer in June 2012, his Carolyn at 56 years old due to an overdose/cited potential for homicide and his stepdaughter Saranya (army ) in 2016 to overdose/opioid. Currently patient denies access to firearms, intent to harm self and/or others.?He is concerned with exacerbations of residual psychotic episodes resulting fromlong- term meth use.? Patient states the anxiety from a risk of these flare-ups potentiate a risk of relapse.? Patient states he constantly hears a low amplitude mumbling of voices that are incoherent and of unknown content however when he is down/depressed these voices exacerbate suicidal ideation and become more potent. Patient is highly motivated and would like to restart his medication regimen. Past psych history: Attests to recurrent hallucinations stemming from prior methuse which exacerbate his underlying psychiatric illness depression anxiety. 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 He tolerated the medication without any problems and did not report any side effects. He had gradual improvement of his symptoms of mood instability and paranoia. As his symptoms improved he became more social on the unit. He was often in the commonarea and seemed to be calmer and socializing with peers appropriately. He started to attend groups and seemed to show improvement with his coping skills as well. He did not exhibit any behavior concerning for suicidality during his hospital course. He did not have any conflict with peers or staff. On the day of discharge he reported he was doing better. He stated that he would be going to rehab and was hopeful that he would be able to complete the program. He denied any hallucinations, suicidal thoughts or hallucinations. Time spent discussing smoking cessation with patient: 3 to 10 minutes Condition Condition at Discharge: Stable Status at Discharge Cognitive/behavioral status at discharge: Mental Status Exam: Appearance: grossly normal Mental Status: mental status grossly normal Mood: Euthymic mood Affect: Normal affect Speech and Movement: speech and movement normal and speech clear Attitude: cooperative Thought Process: normal Thought Content: Denied hallucinations, no homicidality and no suicidality Insight: Good Judgment: Good Functional status at discharge: independent ambulation Overall status at discharge: patient is back to baseline Time Spent with Patient Time spent providing/coordinating discharge services (# min): 30 Exam Physical Exam Vital Signs: Temp Pulse Resp BP Pulse Ox O2 Del Method 96.3 F L 113 H 18 149/106 H 98 Room Air 02/17/23 07:04 02/17/23 07:04 02/17/23 07:04 02/17/23 07:04 02/17/23 07:04 02/17/23 07:04 Discharge Plan Discharge Plan Patient Disposition: Chemical Dependency Activity: No Activity Restriction Diet: Regular Additional Instructions: Regular Diet No Activity Restrictions Instructions: Depression, Adult (DC), Bipolar Disorder (DC), Suicide Prevention, [facility] DC Instructions Prescriptions: New nicotine (polacrilex) 2 mg Gum 2 mg buccal Q2H PRN (Reason: Nicotine Cravings) Qty: 60 0RF hydroxyzine pamoate 50 mg Capsule 50 mg PO Q6H PRN (Reason: Anxiety) Qty: 60 0RF divalproex 500 mg Tablet Extended Release 24 Hr 500 mg PO BID 30 Days Qty: 60 0RF paliperidone 9 mg tablet extended release 24 hr 9 mg PO QHS 30 Days Qty: 30 0RF trazodone 50 mg Tablet 50 mg PO QHS PRN (Reason: Insomnia) 30 Days Qty: 30 0RF ropinirole 0.5 mg Tablet 0.5 mg PO BID 30 Days Qty: 60 0RF buspirone 15 mg tablet 15 mg PO TID 30 Days Qty: 90 0RF Follow Up: [facility] [Other] (Follow facility protocol for mental health services. ) [facility] [Outside] (Contact [facility] when discharged from [facility] for future mental health treatment. ) [facility] [Outside] (Contact your primary care provider with any medical needs. ) Documented By: Paulo Strauss MD 02/17/23 1039 Signed By: <Electronically signed by Paulo Strauss MD> 02/17/23 1416 [facility] Work Phone: 1(406) 686-117808-07-2023 Progress note Author Paulo Strauss [facility] February 17, 2023 2:13pm Note Date/Time February 16, 2023 2:1 4pm [facility] [address] [place] [address] Psychiatry Progress Note Signed Patient: Edward Crowder MR#: [id number] : 1970 Acct:[id number] Age/Sex: 52 / M Adm Date: 3 Loc: Room: [address] [place] [address] Type : ADM IN Attending Dr: Thuy Rodriges MD Copies to: ~ Date of Service: 02/16/2023 Subjective Subjective Narrative: Edward reported that he is feeling a bit better. He is more hopeful that he will accomplish what he needs to do with his rehab. He is tolerating medicationand denied any side effects. Mental Status Exam: Appearance: grossly normal Mental Status: mental status grossly normal Mood: Some anxiety Affect: Appears anxious Speech and Movement: speech and movement normal and speech clear Attitude: cooperative Thought Process: normal Thought Content: No hallucinations, no homicidality and improving suicidality. Did report some paranoia ongoing Insight: fair Judgment: fair Exam Physical Exam Vital Signs: Temp Pulse Resp BP Pulse Ox O2 Del Method 97.7 F 83 18 131/86 98 Room Air 02/16/23 07:30 02/16/23 07:30 02/16/23 07:30 02/16/23 07:30 02/16/23 07:30 02/16/23 07:30 Assessment/Plan Assessment/Plan (1) Polysubstance abuse: Code(s): F19.10 - Other psychoactive substance abuse, uncomplicated Status: Acute (2) Suicidal ideation: Code(s): R45.851 - Suicidal ideations Status: Acute (3) Insomnia: Code(s): G47.00 - Insomnia, unspecified Status: Acute (4) Depression: Code(s): F32.A - Depression, unspecified Status: Acute (5) Bipolar depression: Code(s): F31.9 - Bipolar disorder, unspecified Status: Acute Plan Patient reported improvement of symptoms Continue Ashwin 500 mg PO BID Continue Invega 9 mg at bedtime Continue Requip 0.5 mg PO bid, BuSpar 10 mg 3 times a day for anxiety Continue to monitor mental status Encourage group participation and medication compliance Risk benefits alternatives explained Documented By: Paulo Strauss MD 02/16/23 1414 Signed By: <Electronically signed by Paulo Strauss MD> 02/17/23 1413 [facility] Work Phone: 1(112) 377-540908-06-2023 Progress note Author Paulo Strauss [facility] February 15, 2023 11:00am Note Date/Time February 15, 2023 10: 59am [facility] [address] [place] [address] Psychiatry Progress Note Signed Patient: Edward Crowder MR#: [id number] : 1970 Acct:[id number] Age/Sex: 52 / M Adm Date: 3 Loc: Room: [address] [place] [address] Type : ADM IN Attending Dr: Thuy Rodriges MD Copies to: ~ Date of Service: 02/15/2023 Subjective Subjective Narrative: Edward reported that he still is dealing with a lot of postacute withdrawal syndrome and feels like he is dealing with some psychosis and paranoia. He still open to going to sober living. He feels like his anxiety has been fluctuating up and down and sometimes he gets into a panic. He reported that heis also concerned about his restless legs. He reported that he slept decently but would wake up and have a difficult time getting to sleep. Mental Status Exam: Appearance: grossly normal Mental Status: mental status grossly normal Mood: Some anxiety Affect: Appears anxious Speech and Movement: speech and movement normal and speech clear Attitude: cooperative Thought Process: normal Thought Content: No hallucinations, no homicidality and improving suicidality. Did report some paranoia ongoing Insight: fair Judgment: fair Exam Physical Exam Vital Signs: Temp Pulse Resp BP Pulse Ox O2 Del Method 98.2 F 62 18 131/93 100 Room Air 02/15/23 07:30 02/15/23 07:30 02/15/23 07:30 02/15/23 07:30 02/15/23 07:30 02/15/23 07:30 Assessment/Plan Assessment/Plan (1) Polysubstance abuse: Code(s): F19.10 - Other psychoactive substance abuse, uncomplicated Status: Acute (2) Suicidal ideation: Code(s): R45.851 - Suicidal ideations Status: Acute (3) Insomnia: Code(s): G47.00 - Insomnia, unspecified Status: Acute (4) Depression: Code(s): F32.A - Depression, unspecified Status: Acute (5) Bipolar depression: Code(s): F31.9 - Bipolar disorder, unspecified Status: Acute Plan Patient still reporting some paranoid thoughts and anxiety Continue Ashwin 500 mg PO BID, will check Depakote level Increase Invega 9 mg at bedtime Increase Requip 0.5 mg PO bid We will start BuSpar 10 mg 3 times a day for anxiety Continue to monitor mental status Encourage group participation and medication compliance Risk benefits alternatives explained Documented By: Paulo Strauss MD 02/15/23 1058 Signed By: <Electronically signed by Paulo Strauss MD> 02/15/23 1100 [facility] Work Phone: 1(338) 655-214708-05-2023 Progress note Author Paulo Strauss [facility] February 14, 2023 12:34pm Note Date/Time February 14, 2023 12: 02pm [facility] [address] [place] [address] Psychiatry Progress Note Signed Patient: Edward Crowder MR#: [id number] : 1970 Acct:[id number] Age/Sex: 52 / M Adm Date: 3 Loc: Room: [address] [place] [address] Type : ADM IN Attending Dr: Thuy Rodriges MD Copies to: ~ Date of Service: 02/14/2023 Subjective Subjective Narrative: Edward reports that he still feeling some of the paranoid thoughts really badly. He reported that the medication has been helping him somewhat but feels like they could be working better. His suicidal thoughts have continued to improve. He still complaining of some restless legs at times. But this has improved slightly today. He reported that he did not use any of the as needed Zyprexa which he thinks helped him. Mental Status Exam: Appearance: grossly normal Mental Status: mental status grossly normal Mood: Some anxiety Affect: Appears anxious Speech and Movement: speech and movement normal and speech clear Attitude: cooperative Thought Process: normal Thought Content: No hallucinations, no homicidality and improving suicidality. Did report some paranoia ongoing Insight: fair Judgment: fair Exam Physical Exam Vital Signs: Temp Pulse Resp BP Pulse Ox O2 Del Method 97.8 F 96 H 18 147/94 H 97 Room Air 02/14/23 07:30 02/14/23 07:30 02/14/23 07:30 02/14/23 07:30 02/14/23 07:30 02/14/23 07:30 Assessment/Plan Assessment/Plan (1) Polysubstance abuse: Code(s): F19.10 - Other psychoactive substance abuse, uncomplicated Status: Acute (2) Suicidal ideation: Code(s): R45.851 - Suicidal ideations Status: Acute (3) Insomnia: Code(s): G47.00 - Insomnia, unspecified Status: Acute (4) Depression: Code(s): F32.A - Depression, unspecified Status: Acute (5) Bipolar depression: Code(s): F31.9 - Bipolar disorder, unspecified Status: Acute Plan Patient still reporting some paranoid thoughts Continue Ashwin 500 mg PO BID We will dose Invega 6 mg at bedtime Continue Requip 0.5 mg PO QHS Continue to monitor mental status Encourage group participation and medication compliance Risk benefits alternatives explained Documented By: Paulo Strauss MD 02/14/23 1200 Signed By: <Electronically signed by Paulo Strauss MD> 02/14/23 1234 [facility] Work Phone: [phone]) 280-382008-04-2023 Progress note Author Naeem patel [facility] February 13, 2023 6:27am Note Date/Time February 13, 2023 6:2 7am [facility] [address] [place] [address] Psychiatry Progress Note Signed Patient: Edward Crowder MR#: [id number] : 1970 Acct:[id number] Age/Sex: 52 / M Adm Date: 3 Loc: Room: [address] [place] [address] Type : ADM IN Attending Dr: Thuy Rodriges MD Copies to: ~ Date of Service: 02/13/2023 Subjective Subjective Narrative: Patient reports his anxiety has been high rating at 7 out of 10 with 10 being the worst. He is still hearing muffled voices and sounds associated with VH. Hedenied side effects associated with Depakote and Invega. He said sleep has been better compared to the time of admission. He endorses SI. We discussed benefits of DAVE and he is open to considering Invega sustenna. Mental status exam Mental status: Anxious, concerned Mood: Depressed, anxious Affect: Worried Speech and movement: [Speech and movement normal and speech clear] Attitude: Cooperative, pleasant Thought process: Circumstantial Thought content: Low amplitude incoherent mumbles constantly in background, reports intermittent SI but denied HI Insight: Fair Judgment: Good Exam Physical Exam Vital Signs: Temp Pulse Resp BP Pulse Ox O2 Del Method 97.1 F L 67 16 117/73 97 Room Air 02/12/23 19:57 02/12/23 19:57 02/12/23 19:57 02/12/23 19:57 02/12/23 19:57 02/12/23 19:57 Objective Labs Labs: Abnormal Labs 02/12/23 06:20 Cholesterol 135 L 25-OH Vitamin D Total 29.2 L Assessment/Plan Assessment/Plan (1) Polysubstance abuse: Code(s): F19.10 - Other psychoactive substance abuse, uncomplicated Status: Acute (2) Suicidal ideation: Code(s): R45.851 - Suicidal ideations Status: Acute (3) Insomnia: Code(s): G47.00 - Insomnia, unspecified Status: Acute (4) Depression: Code(s): F32.A - Depression, unspecified Status: Acute (5) Bipolar depression: Code(s): F31.9 - Bipolar disorder, unspecified Status: Acute Plan Patient reports racing thoughts, AH and VH. Continue Ashwin 500 mg PO BID and Invega 3 mg PO BID Continue Requip 0.5 mg PO QHS Monitor suicidal behaviors for safety of self (15-minute face check). Recommend attending groups and psychoeducation for building coping skills. Risks, benefits and indications of medications were discussed with the patient. The patient verbalized understanding. No abnormal movements noted on exam. AIMS is Zero. Involve friends/family members to coordinate care and ensure appropriate outpatient appointments are scheduled prior to discharge. Documented By: Naeem Rodriges MD 3 [id number] Signed By: <Electronically signed by Naeem Rodriges MD> 02/13/23 0627 [facility] Work Phone: 1(612) 419-880408-03-2023 History and physical note Author Naeem patel [facility] February 12, 2023 1:53pm Note Date/Time February 12, 2023 11: 21am [facility] [address] [place] [address] Psychiatry H&P Signed Patient: Edward Crowder MR#: [id number] : 1970 Acct:[id number] Age/Sex: 52 / M Adm Date: 3 Loc: Room: [address] [place] [address] Type: ADM IN Attending Dr: Thuy Rodriges MD Copies to: Naeem Rodriges MD [facility]~ Date of Service: 02/12/2023 HPI History of Present Illness History of present illness: This is a 52-year-old male with reported history of depression, anxiety, panic disorder, suicidal ideation, insomnia and illicit drug use who presents for inpatient admission due to worsening of depression, anxiety, risk of relapse andfeeling suicidal. Reportedly, patient checked himself in attesting to thoughts of self- harm and potential for illicit drug use specifically methamphetamine andalcohol. Patient states he is also concerned with postacute withdrawal syndromelike illness. Patient was personally seen by me on the day of the encounter. I reviewed the history and performed the amador elements of the assessment. I formulated the planof care and confirmed this with the Resident as noted below At this time of the interview, he presented as anxious, worried but motivated. He reports a longstanding history of major depressive disorder and anxiety manifested as illicit drug use/dependence and suicidal ideation. Patient attested to 2 prior attempts at 16 years old and a year ago at 51 years old. Patient attests to prior detox admissions to [facility]: Most recent (98 days), May 2022. Patient states his drug use was provoked by life stressors pertaining to loss ofloved ones. Patient states he lost his son at 19 years old from a brain cancer in June 2012, his Carolyn at 56 years old due to an overdose/cited potential for homicide and his stepdaughter Saranya (army ) in 2016 to overdose/opioid. Currently patient denies access to firearms, intent to harm self and/or others. He is concerned with exacerbations of residual psychotic episodes resulting fromlong- term meth use. Patient states the anxiety from a risk of these flare-ups potentiate a risk of relapse. Patient states he constantly hears a low amplitude mumbling of voices that are incoherent and of unknown content however when he is down/depressed these voices exacerbate suicidal ideation and become more potent. Patient is highly motivated and would like to restart his medication regimen. Past psych history: Attests to recurrent hallucinations stemming from prior methuse which exacerbate his underlying psychiatric illness depression anxiety. 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 Relationships: No current dependents Mental status exam Mental status: Anxious, concerned Mood: Depressed, anxious Affect: Worried Speech and movement: [Speech and movement normal and speech clear] Attitude: Cooperative, pleasant Thought process: Circumstantial Thought content: Low amplitude incoherent mumbles constantly in background, reports intermittent SI but denied HI Insight: Good, aware Judgment: Good Review of systems positive for fatigue, chronic GI upset, chronic dizziness/lightheadedness, occasional slurred speech, memory loss, tingling in his hands and feet, infrequent changes in vision (foggy), nausea, infrequent vomiting, pain on urination, excessive urination more than 10 times daily. Constitutional: Patient denies malaise. Neuro: Denies TBI, seizure HEENT: Denies hearing changes. Pulmonary: Denies SOB, dyspnea, cough, wheezing. Cardiac denies chest pain/pressure. Denies edema, palpitations. GI: Denies constipation and diarrhea denies hematuria Physical exam general: Not in any acute distress Skin: Intact, tattoos HEENT: Head atraumatic, face is symmetrical. Pulm: Breathing normally without excessive effort Cardio: Regular rate and rhythm Abdomen: Normal inspection Musculoskeletal: Moves all extremities normal strength in all extremities Neuro patient is alert, oriented x3. Gait is normal. CN II: Visual holman intact CN III, IV, : EOM intact, no nystagmus CNV: Sensation intact light touch CN VII: Raises eyebrows, smile/frown, puff out cheeks symmetrically. CN VIII: Hearing intact bilaterally. CN IX, X: Voice normal, soft palate elevation normal, symmetrical CN XI: Shoulder shrug strong, equal bilaterally. CN XII: Tongue protrusion midline PMFSH Vaccinated for COVID-19?: No Medical History (Updated 02/12/23 @ 11:17 by Donnell Plunkett MD, RES) Back pain states antoni and screws L3-L5 Depression History of substance abuse HTN (hypertension) Schizophrenia Surgical History H/O neck surgery Family History Family/Other No problems noted. Other No significant family history Social History Smoking Status: Current every day smoker Tobacco Type: cigarettes Substance Use Type: Alcohol and Methamphetamine Substance Abuse Comment: ETOH daily. 1 month since last meth use Social History Comments: Girlfriend is support person Meds Medications and Allergies Allergies No Known Allergies Allergy (Verified 02/11/23 13:29) Home Medications No known home meds 02/11/23 [History Confirmed 02/11/23] Exam Physical Exam Vital Signs: Temp Pulse Resp BP Pulse Ox O2 Del Method 97.9 F 86 16 142/101 H 98 Room Air 02/12/23 07:30 02/12/23 07:30 02/11/23 20:25 02/12/23 07:30 02/12/23 07:30 02/12/23 07:30 Results Labs 02/11/23 13:38 02/11/23 13:38 Psychiatry Labs: 02/11/23 02/11/23 02/11/23 13:38 13:38 13:41 RBC 5.30 Hgb 16.3 Hct 48.0 MCV 90.7 MCH 30.8 MCHC 34.0 RDW 13.1 Plt Count 313 MPV 7.8 Sodium 137 Potassium 4.2 Chloride 106 Carbon Dioxide 22.0 Anion Gap 13.2 BUN 16 Creatinine 0.96 Calcium 9.3 Total Bilirubin 0.6 AST 23 ALT 29 Alkaline Phosphatase 91 Total Protein 7.6 Albumin 4.6 Urine Color Yellow Urine Appearance Clear Urine pH 5.5 Ur Specific [place] 1.003 Urine Protein Negative Urine Glucose (UA) Normal Urine Ketones Negative Urine Occult Blood Negative Urine Nitrite Negative Ur Leukocyte Esterase Negative Assessment/Plan (1) Polysubstance abuse: Code(s): F19.10 - Other psychoactive substance abuse, uncomplicated Status: Acute (2) Suicidal ideation: Code(s): R45.851 - Suicidal ideations Status: Acute (3) Insomnia: Code(s): G47.00 - Insomnia, unspecified Status: Acute (4) Depression: Code(s): F32.A - Depression, unspecified Status: Acute (5) Bipolar depression: Code(s): F31.9 - Bipolar disorder, unspecified Status: Acute Plan Admit to for management of depression and to ensure safety of self due to SI. Start Deoakote 500 mg PO BID and Invega 3 mg PO BID Start Requip 0.5 mg PO QHS Monitor suicidal behaviors for safety of self (15-minute face check). Recommend attending groups and psychoeducation for building coping skills. Risks, benefits and indications of medications were discussed with the patient. The patient verbalized understanding. No abnormal movements noted on exam. AIMS is Zero. Involve friends/family members to coordinate care and ensure appropriate outpatient appointments are scheduled prior to discharge. Documented By: Naeem Rodriges MD 3 [id number] Signed By: <Electronically signed by Naeem Rodriges MD> 02/12/23 [facility] Work Phone: 1(660) 616-462903-12-2023 Progress note Author Paulo Strauss [facility] September 21, 2022 12:23pm Note Date/Time September 21, 2022 12: 23pm [facility] [address] [place] [address] Psychiatry Progress Note Signed Patient: Edward Crowder MR#: [id number] : 1970 Acct:[id number] Age/Sex: 52 / M Adm Date: 3 Loc: Room: [address] [place] [address] Type : ADM IN Attending Dr: Thuy Rodriges MD Copies to: ~ Date of Service: 09/21/2022 Subjective Subjective Narrative: Mr. Crowder reported that he slept better. He reported that he feels that he should be ready to go tomorrow and is hoping that we will hear from the chief lifestyle officer. He denied any side effects to the current medication adjustments at this time. Mental status exam Appearance: grossly normal.?Grooming hygiene, calm, not engaged in interview.? Good eye contact. Normal psychomotor activity Mental status: grossly normal Mood: Improving Affect: Improving Speech and movement: Movement normal and speech clear; regular rate, rhythm, volume, and tone. Non-pressured Attitude: Noncooperative Thought Process: Unable to be assessed Thought Content: Reported some mild audio and visual hallucinations, no homicidality, improving suicidality. Insight: Improving Judgment: Improving Exam Physical Exam Vital Signs: Temp Pulse Resp BP Pulse Ox O2 Del Method 97.4 F L 74 16 106/69 97 Room Air 09/21/22 07:30 09/21/22 07:30 09/21/22 07:30 09/21/22 07:30 09/21/22 07:30 09/21/22 07:30 Assessment/Plan Assessment/Plan (1) Major depressive disorder, recurrent, moderate: Code(s): F33.1 - Major depressive disorder, recurrent, moderate Status: Acute (2) Psychosis: Code(s): F29 - Unspecified psychosis not due to a substance or known physiological condition Status: Acute Plan Patient reported that he is feels better at this time. Depression is been improving and slept better overnight Patient willing to go to rehab if his chief lifestyle officer will allow him to and he has been accepted. If chief lifestyle officer does not accept him, he is willing to go to the chief lifestyle officer office and turn himself in Continue Depakote 500 mg PO Q am and 1000 mg PO QHS, continue Seroquel to 50 mg in the morning and 400 mg QHS Continue doxepin 25 mg at bedtime for sleep Continue Cymbalta 30 mg daily for depression and anxiety Continue to monitor mental status Encourage group participation and medication compliance Risk benefits alternatives explained Documented By: Paulo Strauss MD 09/21/22 1222 Signed By: <Electronically signed by Paulo Strauss MD> 09/21/22 1223 [facility] Work Phone: 1(854) 835-774203-11-2023 Progress note Author Paulo Strauss [facility] September 20, 2022 11:27am Note Date/Time September 20, 2022 11: 28am [facility] [address] [place], [place] [id number] Psychiatry Progress Note Signed Patient: Edward Crowder MR#: [id number] : 1970 Acct:[id number] Age/Sex: 52 / M Adm Date: 3 Loc: Room: [address] [place] [address] Type : ADM IN Attending Dr: Thuy Rodriges MD Copies to: ~ Date of Service: 09/20/2022 Subjective Subjective Narrative: Mr. Crowder reported that he is the same as yesterday. He reported that his depression anxiety have gone through the roof due to stressors with his chief lifestyle officer. He reported that he still has issues with auditory hallucinations and shadows. He reported that he has been isolating to his room a little bit. He stated that he remains hopeful that he will have a bed on Thursday to go to rehab. Mental status exam Appearance: grossly normal.?Grooming hygiene, calm, not engaged in interview.? Good eye contact. Normal psychomotor activity Mental status: grossly normal Mood: Improving Affect: Improving Speech and movement: Movement normal and speech clear; regular rate, rhythm, volume, and tone. Non-pressured Attitude: Noncooperative Thought Process: Unable to be assessed Thought Content: Reported some mild audio and visual hallucinations, no homicidality, improving suicidality. Insight: Improving Judgment: Improving Exam Physical Exam Vital Signs: Temp Pulse Resp BP Pulse Ox O2 Del Method 98.1 F 76 18 134/89 98 Room Air 09/20/22 07:30 09/20/22 07:30 09/20/22 07:30 09/20/22 07:30 09/20/22 07:30 09/20/22 07:30 Assessment/Plan Assessment/Plan (1) Major depressive disorder, recurrent, moderate: Code(s): F33.1 - Major depressive disorder, recurrent, moderate Status: Acute (2) Psychosis: Code(s): F29 - Unspecified psychosis not due to a substance or known physiological condition Status: Acute Plan Patient anxious about what will happen due to probation. Did not receive callback from corporate officer yesterday Patient willing to go to rehab if his chief lifestyle officer will allow him to and he has been accepted. If chief lifestyle officer does not accept him, he is willing to go to the chief lifestyle officer office and turn himself in Continue Depakote 500 mg PO Q am and 1000 mg PO QHS, continue Seroquel to 50 mg in the morning and 400 mg QHS Continue doxepin 25 mg at bedtime for sleep We will add Cymbalta 30 mg daily for depression and anxiety Continue to monitor mental status Encourage group participation and medication compliance Risk benefits alternatives explained Documented By: Paulo Strauss MD 09/20/221125 Signed By: <Electronically signed by Paulo Strauss MD> 09/20/221126 [facility] Work Phone: 1(268) 261-244203-10-2023 Progress note Author Paulo Strauss [facility] September 19, 2022 1:58pm Note Date/Time September 19, 2022 1:5 8pm [facility] [address] [place] [address] Psychiatry Progress Note Signed Patient: Edward Crowder MR#: [id number] : 1970 Acct:[id number] Age/Sex: 52 / M Adm Date: 3 Loc: Room: [address] [place] [address] Type : ADM IN Attending Dr: Thuy Rodriges MD Copies to: ~ Date of Service: 09/19/2022 Subjective Subjective Narrative: Mr. Crowder reported that he is very anxious. He reported that he spoke to his chief lifestyle officer. He stated that he would have to appear and is concerned that hemay be violated and return to penitentiary. He stated that he still wants to go to rehab. Mental status exam Appearance: grossly normal.?Grooming hygiene, calm, not engaged in interview.? Good eye contact. Normal psychomotor activity Mental status: grossly normal Mood: Improving Affect: Improving Speech and movement: Movement normal and speech clear; regular rate, rhythm, volume, and tone. Non-pressured Attitude: Noncooperative Thought Process: Unable to be assessed Thought Content: Reported some mild audio and visual hallucinations, no homicidality, improving suicidality. Insight: Improving Judgment: Improving Exam Physical Exam Vital Signs: Temp Pulse Resp BP Pulse Ox O2 Del Method 97.6 F 70 16 119/77 97 Room Air 09/19/22 07:30 09/19/22 07:30 09/19/22 07:30 09/19/22 07:30 09/19/22 07:30 09/19/22 07:30 Assessment/Plan Assessment/Plan (1) Major depressive disorder, recurrent, moderate: Code(s): F33.1 - Major depressive disorder, recurrent, moderate Status: Acute (2) Psychosis: Code(s): F29 - Unspecified psychosis not due to a substance or known physiological condition Status: Acute Plan Patient anxious about what will happen due to probation. I attempted to call corporate officer multiple times during the day and left a message for call back. Patient willing to go to rehab if his chief lifestyle officer will allow him to and he has been accepted. If chief lifestyle officer does not accept him, he is willing to go to the chief lifestyle officer office and turn himself in Continue Depakote 500 mg PO Q am and 1000 mg PO QHS, continue Seroquel to 50 mg in the morning and 400 mg QHS Continue doxepin 25 mg at bedtime for sleep Continue to monitor mental status Encourage group participation and medication compliance Risk benefits alternatives explained Documented By: Paulo Strauss MD 09/19/22 9996 Signed By: <Electronically signed by Paulo Strauss MD> 09/19/22 9359 [facility] Work Phone: 1(852) 513-980603-09-2023 Progress note Author Paulo Strauss [facility] September 18, 2022 2:18pm Note Date/Time September 18, 2022 2:18 pm [facility] [address] [place] [address] Psychiatry Progress Note Signed Patient: Edward Crowder MR#: [id number] : 1970 Acct:[id number] Age/Sex: 52 / M Adm Date: 3 Loc: Room: [address] [place] [address] Type : ADM IN Attending Dr: Thuy Rodriges MD Copies to: ~ Date of Service: 09/18/2022 Subjective Subjective Narrative: Mr. Crowder reported that he is still looking for rehab facilities. He reported that he slept a little bit better as he woke up less times overnight. He reported that he still feels depressed and still feels like his mind is racing. At times he feels like giving up but likely due to frustration about rehab placement. Mental status exam Appearance: grossly normal.?Grooming hygiene, calm, not engaged in interview.? Good eye contact. Normal psychomotor activity Mental status: grossly normal Mood: Improving Affect: Improving Speech and movement: Movement normal and speech clear; regular rate, rhythm, volume, and tone. Non-pressured Attitude: Noncooperative Thought Process: Unable to be assessed Thought Content: Reported some mild audio and visual hallucinations, no homicidality, improving suicidality. Insight: Improving Judgment: Improving Exam Physical Exam Vital Signs: Temp Pulse Resp BP Pulse Ox O2 Del Method 97.7 F 83 16 105/76 98 Room Air 09/18/22 07:30 09/18/22 07:30 09/18/22 07:30 09/18/22 07:30 09/18/22 07:30 09/18/22 07:30 Assessment/Plan Assessment/Plan (1) Major depressive disorder, recurrent, moderate: Code(s): F33.1 - Major depressive disorder, recurrent, moderate Status: Acute (2) Psychosis: Code(s): F29 - Unspecified psychosis not due to a substance or known physiological condition Status: Acute Plan Patient is reporting poor sleep Case management and patient still trying to work on rehab placement Continue Depakote 500 mg PO Q am and 1000 mg PO QHS, continue Seroquel to 50 mg in the morning and increase nighttime dose 400 mg QHS Continue doxepin 25 mg at bedtime for sleep Continue to monitor mental status Encourage group participation and medication compliance Risk benefits alternatives explained Documented By: Paulo Strauss MD 09/18/221416 Signed By: <Electronically signed by Paulo Strauss MD> 09/18/22 1418 [facility] Work Phone: 1(228) 125-692803-08-2023 Progress note Author Paulo Strauss [facility] September 17, 2022 10:53am Note Date/Time September 17, 2022 10:5 3am [facility] [address] [place] [address] Psychiatry Progress Note Signed Patient: Edward Crowder MR#: [id number] : 1970 Acct:[id number] Age/Sex: 52 / M Adm Date: 3 Loc: 1S Room: [address] [place] [address] Type : ADM IN Attending Dr: Thuy Rodriges MD Copies to: ~ Date of Service: 09/17/2022 Subjective Subjective Narrative: Mr. Crowder reported that he is not doing well. Still reported some poor sleep issues. He did not report any hallucinations but stated that his mind is still racing. He stated that he cannot go to the rehab facility and has started making phone calls to other rehabs. Nursing staff did talk with the rehab and they stated that they would not have been beds until the end of the month. Patient was advised of this and start making phone calls immediately. Mental status exam Appearance: grossly normal.?Grooming hygiene, calm, not engaged in interview.? Good eye contact. Normal psychomotor activity Mental status: grossly normal Mood: Improving Affect: Improving Speech and movement: Movement normal and speech clear; regular rate, rhythm, volume, and tone. Non-pressured Attitude: Noncooperative Thought Process: Unable to be assessed Thought Content: Reported some mild audio and visual hallucinations, no homicidality, improving suicidality. Insight: Improving Judgment: Improving Exam Physical Exam Vital Signs: Temp Pulse Resp BP Pulse Ox O2 Del Method 97.7 F 89 18 113/72 99 Room Air 09/17/22 07:30 09/17/22 07:30 09/17/22 07:30 09/17/22 07:30 09/17/22 07:30 09/17/22 07:30 Assessment/Plan Assessment/Plan (1) Major depressive disorder, recurrent, moderate: Code(s): F33.1 - Major depressive disorder, recurrent, moderate Status: Acute (2) Psychosis: Code(s): F29 - Unspecified psychosis not due to a substance or known physiological condition Status: Acute Plan Patient is reporting poor sleep Case management and patient still trying to work on rehab placement Continue Depakote 500 mg PO Q am and 1000 mg PO QHS, continue Seroquel to 50 mg in the morning and 300 mg QHS Increase doxepin 25 mg at bedtime for sleep Continue to monitor mental status Encourage group participation and medication compliance Risk benefits alternatives explained Documented By: Paulo Strauss MD 09/17/22 105 Signed By: <Electronically signed by Paulo Strauss MD> 09/17/22 105 [facility] Work Phone: 1(445) 915-465703-07-2023 Progress note Author Paulo Strauss [facility] September 16, 2022 12:33pm Note Date/Time September 16, 2022 12:3 3pm [facility] [address] [place] [address] Psychiatry Progress Note Signed Patient: Edward Crowder MR#: [id number] : 1970 Acct:[id number] Age/Sex: 52 / M Adm Date: 3 Loc: Room: [address] [place] [address] Type : ADM IN Attending Dr: Thuy Rodriges MD Copies to: ~ Date of Service: 09/16/2022 Subjective Subjective Narrative: Mr. Crowder reported that he did not take his Invega yesterday because he believes that it is contributing to his restless legs. He stated that he still experiencing some hallucinations but overall this has been improving. He reported that his suicidal thoughts are improving but due to his lack of sleep he sometimes feels like taking some pills just so that he can sleep. Mental status exam Appearance: grossly normal.?Grooming hygiene, calm, not engaged in interview.? Good eye contact. Normal psychomotor activity Mental status: grossly normal Mood: Improving Affect: Improving Speech and movement: Movement normal and speech clear; regular rate, rhythm, volume, and tone. Non-pressured Attitude: Noncooperative Thought Process: Unable to be assessed Thought Content: Reported some mild audio and visual hallucinations, no homicidality, improving suicidality. Insight: Improving Judgment: Improving Exam Physical Exam Vital Signs: Temp Pulse Resp BP Pulse Ox O2 Del Method 97.5 F L 75 16 145/96 H 98 Room Air 09/16/22 07:30 09/16/22 07:30 09/16/22 07:30 09/16/22 07:30 09/16/22 07:30 09/16/22 07:30 Assessment/Plan Assessment/Plan (1) Major depressive disorder, recurrent, moderate: Code(s): F33.1 - Major depressive disorder, recurrent, moderate Status: Acute (2) Psychosis: Code(s): F29 - Unspecified psychosis not due to a substance or known physiological condition Status: Acute Plan Patient reported feeling a little bit better. But still reports some hallucinations. Does report poor sleep Continue Depakote 500 mg PO Q am and 1000 mg PO QHS, increase Seroquel to 50 mg in the morning and 300 mg QHS We will try doxepin 10 mg at bedtime for sleep Discontinue Invega and Topamax Continue to monitor mental status Encourage group participation and medication compliance Risk benefits alternatives explained Documented By: Paulo Strauss MD 09/16/22 1230 Signed By: <Electronically signed by Paulo Strauss MD> 09/16/22 1233 [facility] Work Phone: [phone]) [phone] Progress note Author Paulo Strauss [facility] September 15, 2022 2:19pm Note Date/Time September 15, 2022 2:19 pm [facility] [address] [place] [address] Psychiatry Progress Note Signed Patient: Edward Crowder MR#: [id number] : 1970 Acct:[id number] Age/Sex: 52 / M Adm Date: 3 Loc: Room: [address] [place] [address] Type : ADM IN Attending Dr: Thuy Rodriges MD Copies to: ~ Date of Service: 09/15/2022 Subjective Subjective Narrative: Mr. Crowder reported that he is feeling a bit better. He reported that he does feel some restlessness and feels a little bit shaky which she attributes to withdrawal from alcohol or gabapentin. He stated that he is interested in goingto rehab and will start making phone calls. Mental status exam Appearance: grossly normal.?Grooming hygiene, calm, not engaged in interview.? Good eye contact. Normal psychomotor activity Mental status: grossly normal Mood: Improving Affect: Improving Speech and movement: Movement normal and speech clear; regular rate, rhythm, volume, and tone. Non-pressured Attitude: Noncooperative Thought Process: Unable to be assessed Thought Content: Denied audio and visual hallucinations, no homicidality, improving suicidality. Does not appear to be responding to internal stimuli Insight: Improving Judgment: Improving Exam Physical Exam Vital Signs: Temp Pulse Resp BP Pulse Ox O2 Del Method 97.7 F 91 H 16 134/93 96 Room Air 09/15/22 07:30 09/15/22 07:30 09/15/22 07:30 09/15/22 07:30 09/15/22 07:30 09/15/22 07:30 Assessment/Plan Assessment/Plan (1) Major depressive disorder, recurrent, moderate: Code(s): F33.1 - Major depressive disorder, recurrent, moderate Status: Acute (2) Psychosis: Code(s): F29 - Unspecified psychosis not due to a substance or known physiological condition Status: Acute Plan Patient reported that he is feeling better at this time. Denied current suicidal thoughts. Future oriented at this time and stated that he is interested in going to rehab Continue Depakote 500 mg PO Q am and 1000 mg PO QHS, Invega 3 mg PO BID and Topamax 25 mg PO BID, Seroquel to 250 mg PO QHS Continue to monitor mental status Encourage group participation and medication compliance Risk benefits alternatives explained Documented By: Paulo Strauss MD 09/15/221417 Signed By: <Electronically signed by Paulo Strauss MD> 09/15/22 1419 [facility] Work Phone: [phone]) [phone] Progress note Author Naeem patel [facility] September 13, 2022 7:56am Note Date/Time September 13, 2022 7:55 am [facility] [address] [place] [address] Psychiatry Progress Note Signed Patient: Edward Crowder MR#: [id number] : 1970 Acct:[id number] Age/Sex: 52 / M Adm Date: 3 Loc: Room: [address] [place] [address] Type : ADM IN Attending Dr: Thuy Rodriges MD Copies to: ~ Date of Service: 09/13/2022 Subjective Subjective Narrative: Mr. Crowder reports that he is severely depressed. He reported intense racing thoughts and poor sleep. He has been staying most of the time inside his bed. Wediscussed that frequent long naps may interfere with sleep at night. He does notcome out for groups. He reports suicidal thoughts and contracted for safety. He tolerated Invega yesterday. Mental status exam Appearance: grossly normal.?Grooming hygiene, calm, not engaged in interview.? Poor eye contact. Normal psychomotor activity Mental status: grossly normal Mood: Depressed 7 out of 10 Affect: Constricted Speech and movement: Movement normal and speech clear; regular rate, rhythm, volume, and tone. Non-pressured Attitude: Noncooperative Thought Process: Unable to be assessed Thought Content: Reports paranoid or delusional thoughts.? Endorses audio and visual hallucinations, no homicidality, positive suicidality. Does not appear qasim responding to internal stimuli Insight: Poor Judgment: Poor Exam Physical Exam Vital Signs: Temp Pulse Resp BP Pulse Ox O2 Del Method 98.4 F 94 H 18 111/78 95 Room Air 09/12/22 19:25 09/12/22 19:25 09/12/22 19:25 09/12/22 19:25 09/12/22 19:25 09/12/22 19:25 Assessment/Plan Assessment/Plan (1) Major depressive disorder, recurrent, moderate: Code(s): F33.1 - Major depressive disorder, recurrent, moderate Status: Acute (2) Psychosis: Code(s): F29 - Unspecified psychosis not due to a substance or known physiological condition Status: Acute Plan Patient reprots racing thoughts, irritability and SI. Continue Depakote 500 mg PO Q am and 1000 mg PO QHS, Invega 3 mg PO BID and Topamax 25 mg PO BID Increase Seroquel to 250 mg PO QHS Patient requested gabapentin but I advised against it due to prior OD on gabapentin. Encourage group participation Monitor mental status Documented By: Naeem Rodriges MD [id number] Signed By: <Electronically signed by Naeem Rodriges MD> 09/13/22 3126 [facility] Work Phone: 1([phone]) 661-124203-03-2023 Progress note Author Naeem patel [facility] September 12, 2022 9:03am Note Date/Time September 12, 2022 8:54 am [facility] [address] [place] [address] Psychiatry Progress Note Signed Patient: Edward Crowder MR#: [id number] : 1970 Acct:[id number] Age/Sex: 52 / M Adm Date: 3 Loc: 1S Room: [address] [place] [address] Type : ADM IN Attending Dr: Thuy Rodriges MD Copies to: ~ Date of Service: 09/12/2022 Subjective Subjective Narrative: Mr. Crowder reports that he is severely depressed. He reported paranoid thoughts and AH. He said he can not focus due to racing thoughts. He has been withdrawan inside the room most of the time. He does not come out for groups. He reports suicidal thoughts and contracted for safety. He has not tried Invega and we discussed staring it. Mental status exam Appearance: grossly normal.?Grooming hygiene, calm, not engaged in interview.? Poor eye contact. Normal psychomotor activity Mental status: grossly normal Mood: Depressed 7 out of 10 Affect: Constricted Speech and movement: Movement normal and speech clear; regular rate, rhythm, volume, and tone. Non-pressured Attitude: Noncooperative Thought Process: Unable to be assessed Thought Content: Reports paranoid or delusional thoughts.? Endorses audio and visual hallucinations, no homicidality, positive suicidality. Does not appear qasim responding to internal stimuli Insight: Poor Judgment: Poor Exam Physical Exam Vital Signs: Temp Pulse Resp BP Pulse Ox O2 Del Method 97.8 F 76 16 119/78 100 Room Air 09/12/22 07:30 09/12/22 07:30 09/11/22 21:18 09/12/22 07:30 09/12/22 07:30 09/12/22 07:30 Assessment/Plan Assessment/Plan (1) Major depressive disorder, recurrent, moderate: Code(s): F33.1 - Major depressive disorder, recurrent, moderate Status: Acute (2) Psychosis: Code(s): F29 - Unspecified psychosis not due to a substance or known physiological condition Status: Acute Plan Switch Seroquel 50 mg PO BID to Invega 3 mg PO BID No other changes in meds today Encourage group participation Monitor mental status Documented By: Naeem Rodriges MD [id number] Signed By: <Electronically signed by Naeem Rodriges MD> 09/12/22 0903 [facility] Work Phone: 1(953) 678-864103-02-2023 Progress note Author Naeem patel [facility] September 11, 2022 7:02am Note Date/Time September 11, 2022 7:02 am [facility] [address] [place] [address] Psychiatry Progress Note Signed Patient: Edward Crowder MR#: [id number] : 1970 Acct:[id number] Age/Sex: 52 / M Adm Date: 3 Loc: Room: [address] [place] [address] Type : ADM IN Attending Dr: Thuy Rodriges MD Copies to: ~ Date of Service: 09/11/2022 Subjective Subjective Narrative: Mr. Crowder reports that he is still struggling with withdrawal symptoms. He did not open up about his mental health symptoms. He feels irritable at times and stated he did not take his medicine last night. Patient denied any homicidal thoughts. When asked why he took the medications he said to . Patient states that he is hearing both auditory and visual hallucinations. He states that the voices increased in frequency and are louder. He is also states that the visions are worse and come and go. Mental status exam Appearance: grossly normal. Poor grooming and hygiene, calm, not engaged in interview. Poor eye contact. Normal psychomotor activity Mental status: grossly normal Mood: Depressed Affect: Constricted Speech and movement: Movement normal and speech clear; regular rate, rhythm, volume, and tone. Non-pressured Attitude: Noncooperative Thought Process: sluggish Thought Content: Reports paranoid or delusional thoughts. Endorses audio and visual hallucinations, no homicidality, positive suicidality. Does not appear qasim responding to internal stimuli Insight: Poor Judgment: Poor Exam Physical Exam Vital Signs: Temp Pulse Resp BP Pulse Ox O2 Del Method 98.3 F 87 16 107/68 95 Room Air 09/10/22 20:00 09/10/22 20:00 09/10/22 20:00 09/10/22 20:00 09/10/22 20:00 09/10/22 20:00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 Diagnosis Date Anxiety Hypertension FAMILY/SOCIAL HISTORY: No family history on file. Social History Socioeconomic History Marital status: Spouse name: Not on file Number of children: Not on file Years of education: Not on file Highest education level: Not on file Occupational History Not on file Tobacco Use Smoking status: Current Every Day Smoker Packs/day: 1.00 Types: Cigarettes Smokeless tobacco: Not on file Substance and Sexual Activity Alcohol use: Not Currently Drug use: Never Sexual activity: Not on file Other Topics Concern Not on file Social History Narrative Not on file Social Determinants of Health Financial Resource Strain: Difficulty of Paying Living Expenses: Not on file Food Insecurity: Worried About Running Out of Food in the Last Year: Not on file Ran Out of Food in the Last Year: Not on file Transportation Needs: Lack of Transportation (Medical): Not on file Lack of Transportation (Non-Medical): Not on file Physical Activity: Days of Exercise per Week: Not on file Minutes of Exercise per Session: Not on file Stress: Feeling of Stress : Not on file Social Connections: Frequency of Communication with Friends and Family: Not on file Frequency of Social Gatherings with Friends and Family: Not on file Attends Sabianist Services: Not on file Active Member of Clubs or Organizations: Not on file Attends Club or Organization Meetings: Not on file Marital Status: Not on file Intimate Partner Violence: Fear of Current or Ex-Partner: Not on file Emotionally Abused: Not on file Physically Abused: Not on file Sexually Abused: Not on file Housing Stability: Unable to Pay for Housing in the Last Year: Not on file Number of Places Lived in the Last Year: Not on file Unstable Housing in the Last Year: Not on file ROS: [x] All negative/unchanged except if checked. Explain positive(checked items) below: [] Constitutional [] Eyes [] Ear/Nose/Mouth/Throat [] Respiratory [] CV [] GI [] [] Musculoskeletal [] Skin/Breast [] Neurological [] Endocrine [] Heme/Lymph [] Allergic/Immunologic Explanation: MEDICATIONS: Current Facility-Administered Medications: acetaminophen (TYLENOL) tablet 650 mg, 650 mg, Oral, Q4H PRN, Sahil Almanza MD, 650 mg at 0.9 % sodium chloride infusion, , IntraVENous, Continuous, Jose Alegre MD, Last Rate: 100 mL/hr at 06/30/21 1024, New Bag at 06/30/21 1024 benzocaine-menthol (CEPACOL SORE THROAT) lozenge 1 lozenge, 1 lozenge, Oral, Q2H PRN, Richard Jamison APRN - FLIGHT TECHNICIAN, 1 lozenge at 06/30/21 1505 OLANZapine (ZYPREXA) tablet 15 mg, 15 mg, Oral, Nightly, Reynaldo Berry MD, 15 mg at 06/29/21 2138 thiamine tablet 100 mg, 100 mg, Oral, Daily, Reynaldo Berry MD, 100 mg at 06/30/21 1017 multivitamin 1 tablet, 1 tablet, Oral, Daily, Reynaldo Berry MD, 1 tablet at 06/30/21 1017 nicotine (NICODERM CQ) 21 MG/24HR 1 patch, 1 patch, TransDERmal, Daily, Reynaldo Berry MD LORazepam (ATIVAN) tablet 1 mg, 1 mg, Oral, Q1H PRN OR LORazepam (ATIVAN) injection 1 mg, 1 mg,IntraVENous, Q1H PRN, 1 mg at 06/30/21 1025 OR LORazepam (ATIVAN) tablet 2 mg, 2 mg, Oral, Q1H PRN OR LORazepam (ATIVAN) injection 2 mg, 2 mg, IntraVENous, Q1H PRN, 2 mg at 06/29/21 1732 OR LORazepam (ATIVAN) tablet 3 mg, 3 mg, Oral, Q1H PRN OR LORazepam (ATIVAN) injection 3 mg, 3 mg, IntraVENous, Q1H PRN OR LORazepam (ATIVAN) tablet 4 mg, 4 mg, Oral, Q1H PRN OR LORazepam (ATIVAN) injection 4 mg, 4 mg, IntraVENous, Q1H PRN, Reynaldo Berry MD lithium capsule 150 mg, 150 mg, Oral, TID WC, Reynaldo Berry MD, 150 mg at 06/30/21 1502 hydrOXYzine (VISTARIL) capsule 50 mg, 50 mg, Oral, Q4H PRN, Jose Alegre MD, 50 mg at 06/29/21 1050 haloperidol lactate (HALDOL) injection 5 mg, 5 mg, IntraMUSCular, Q6H PRN, Jose Alegre MD enoxaparin (LOVENOX) injection 40 mg, 40 mg, SubCUTAneous, Daily, Jose Alegre MD, 40 mg at 06/30/21 1016 Examination: BP 100/68 Pulse 86 Temp 98.9 F (37.2 C) (Oral) Resp 16 Ht 5' 7 (1.702 m) Wt 175 lb (79.4kg) SpO2 95% BMI 27.41 kg/m Gait - unable to assess due to patient sitting in bed Medication side effects(SE): none reported Mental Status Examination: Level of consciousness: within normal limits Appearance: poor grooming and poor hygiene Behavior/Motor: psychomotor retardation Attitude toward examiner: cooperative and good eye contact Speech: spontaneous, normal volume, well articulated and slow Mood: anxious, constricted, decreased range and depressed Affect: mood congruent and blunted Thought processes: linear, goal directed, coherent and slow Thought content: Homocidal ideation denies Suicidal Ideation: denies suicidal ideation Delusions: paranoid Perceptual Disturbance: denies any perceptual disturbance Cognition: oriented to person, place, and time Concentration distractible Insight fair Judgement fair ASSESSMENT: Patient symptoms are: [x] Well controlled [] Improving [] Worsening [] No change Diagnosis: Bipolar disorder, mixed, severe with psychotic features vs. Schizoaffective disorder, bipolar type LABS: Recent Labs 06/28/21 1122 06/29/21 1714 06/30/21 0918 WBC 10.8 6.2 6.9 HGB 16.6 15.0 15.6 PLT 310 228 230 Recent Labs 06/28/21 1121 06/29/21 1714 06/30/21 0918 NA 139 142 139 140 K 5.3* 4.0 4.0 4.4 CL 100 106 104 103 CO2 28 21 20 26 BUN 19 22* 22* 20 CREATININE 1.13 1.43* 1.42* 1.29* GLUCOSE 73 109* 108* 95 Recent Labs 06/28/21 1121 06/29/21 1714 06/30/21 0918 BILITOT 0.4 0.3 0.3 0.4 ALKPHOS 114* 108* 105* 95 AST 40 29 28 32 ALT 54* 41 40 41 Lab Results Component Value Date LABAMPH Neg 06/28/2021 BARBSCNU Neg 06/28/2021 LABBENZ Neg 06/28/2021 LABMETH Neg 06/28/2021 OPIATESCREENURINE Neg 06/28/2021 PHENCYCLIDINESCREENURINE Neg 06/28/2021 ETOH <10 06/28/2021 Lab Results Component Value Date TSH 1.110 06/28/2021 No results found for: LITHIUM No results found for: VALPROATE, CBMZ RISK ASSESSMENT: High risk of suicide and self-neglect Treatment Plan: Reviewed current Medications with the patient. Will increase lithium for mood stabilization Risks, benefits, side effects, [id number] interactions and alternatives to treatment were discussed. Collateral information: pending CD evaluation pending Encourage patient to attend group and other milieu activities. Discharge planning discussed with the patient and treatment team. PSYCHOTHERAPY/COUNSELING: [x] Therapeutic interview [x] Supportive [] CBT [] Ongoing [] Other [x] Patient continues to need, on a daily basis, active treatment furnished directly by or requiring the supervision of inpatient psychiatric personnel Anticipated Length of stay: * Jose Alegre MD - 06/30/2021 7:00 AM EST Progress Note Date:06/30/2021 Room:[place] [address] Patient Name:Edward Crowder Date of :1970 Age:51 y.o. Subjective Subjective: Symptoms: No shortness of breath, malaise, cough, chest pain, weakness, headache, chest pressure, anorexia, diarrhea or anxiety. Review of Systems Respiratory: Negative for cough and shortness of breath. Cardiovascular: Negative for chest pain. Gastrointestinal: Negative for anorexia and diarrhea. Neurological: Negative for weakness. Objective Vitals Last 24 Hours: TEMPERATURE: Temp Av.5 F (36.9 C) Min: 98.2 F (36.8 C) Max: 98.9 F (37.2 C) RESPIRATIONS RANGE: Resp Av Min: 16 Max: 16 PULSE OXIMETRY RANGE: SpO2 Av % Min: 97 % Max: 97 % PULSE RANGE: Pulse Av Min: 86 Max: 104 BLOOD PRESSURE RANGE: Systolic (24hrs), Av , Min:100 , Max:116 ; Diastolic (24hrs), Av, Min:60, Max:82 I/O (24Hr): No intake or output data in the 24 hours ending 06/30/21 0939 Objective: General Appearance: Well-appearing, in no acute distress and comfortable. Vital signs: (most recent): Blood pressure 100/68, pulse 86, temperature 98.9 F (37.2 C), temperature source Oral, resp. rate 16, height 5' 7 (1.702 m), weight 175 lb (79.4 kg), SpO2 97 %. HEENT: Normal HEENT exam. Lungs: Normal effort and normal respiratory rate. Heart: Normal rate. Regular rhythm. S1 normal and S2 normal. Abdomen: Abdomen is soft. Bowel sounds are normal. There is no epigastric area or suprapubic area tenderness. Pulses: Distal pulses are intact. Neurological: Patient is alert and oriented to person, place and time. Pupils: Pupils are equal, round, and reactive to light. Skin: Warm. Labs/Imaging/Diagnostics Labs: CBC: Recent Labs 06/28/21 1122 06/29/21 1714 WBC 10.8 6.2 RBC 5.31 4.86 HGB 16.6 15.0 HCT 48.6 44.3 MCV 91.5 91.2 RDW 13.1 13.3 PLT 310 228 CHEMISTRIES: Recent Labs 06/28/21 1121 06/29/21 1714 NA 139 142 139 K 5.3* 4.0 4.0 CL 100 106 104 CO2 28 21 20 BUN 19 22* 22* CREATININE 1.13 1.43* 1.42* GLUCOSE 73 109* 108* PT/INR:No results for input(s): PROTIME, INR in the last 72 hours. APTT:No results for input(s): APTT in the last 72 hours. LIVER PROFILE: Recent Labs 06/28/21 1121 06/29/21 1714 AST 40 29 28 ALT 54* 41 40 BILITOT 0.4 0.3 0.3 ALKPHOS 114* 108* 105* Imaging Last 24 Hours: No results found. Assessment//Plan Hospital Problems Last Modified POA Delusion (HCC) 06/28/2021 Yes COvid ARSEN Assessment & Plan 06/29: From medical standpoint patient can be discharged anytime. Awaiting psych clearance. Patientneeds placement post discharge. cut off worker consulted. Patient states that he has no place to go from here. Follow-up labs today 06/30: No one called me about the repeated labs yesterday. Patient has acute kidney injury. IV fluids for 1 L. No nephrotoxic agents. Continue with current management. Renal u/s for ARSEN. * Hyacinth Shay RN - 06/29/2021 9:45 PM EST Patient assessed. VS stable. No concerns this evening. Needs provided. Call light within reach. 1:1sitter present * Jose Alegre MD - 06/29/2021 7:00 AM EST Progress Note Date:06/29/2021 Room:[place] [address] Patient Name:Edward Crowder Date of :1970 Age:51 y.o. Subjective Subjective: Symptoms: No shortness of breath, malaise, cough, chest pain, weakness, headache, chest pressure, anorexia, diarrhea or anxiety. Review of Systems Respiratory: Negative for cough and shortness of breath. Cardiovascular: Negative for chest pain. Gastrointestinal: Negative for anorexia and diarrhea. Neurological: Negative for weakness. Objective Vitals Last 24 Hours: TEMPERATURE: Temp Av.2 F (37.3 C) Min: 98.6 F (37 C) Max: 100.1 F (37.8 C) RESPIRATIONS RANGE: Resp Av.8 Min: 16 Max: 22 PULSE OXIMETRY RANGE: SpO2 Av.4 % Min: 97 % Max: 100 % PULSE RANGE: Pulse Av.7 Min: 91 Max: 132 BLOOD PRESSURE RANGE: Systolic (24hrs), Av , Min:110 , Max:161 ; Diastolic (24hrs), Av, Min:69, Max:92 I/O (24Hr): No intake or output data in the 24 hours ending 06/29/21 1015 Objective: General Appearance: Well-appearing, in no acute distress and comfortable. Vital signs: (most recent): Blood pressure 115/69, pulse 96, temperature 98.6 F (37 C), resp. rate 18, height 5' 7 (1.702 m), weight 175 lb (79.4 kg), SpO2 97 %. HEENT: Normal HEENT exam. Lungs: Normal effort and normal respiratory rate. Heart: Normal rate. Regular rhythm. S1 normal and S2 normal. Abdomen: Abdomen is soft. Bowel sounds are normal. There is no epigastric area or suprapubic area tenderness. Pulses: Distal pulses are intact. Neurological: Patient is alert and oriented to person, place and time. Pupils: Pupils are equal, round, and reactive to light. Skin: Warm. Labs/Imaging/Diagnostics Labs: CBC:Recent Labs 06/28/21 1122 WBC 10.8 RBC 5.31 HGB 16.6 HCT 48.6 MCV 91.5 RDW 13.1 PLT 310 CHEMISTRIES: Recent Labs 06/28/21 1121 NA 139 K 5.3* CL 100 CO2 28 BUN 19 CREATININE 1.13 GLUCOSE 73 PT/INR:No results for input(s): PROTIME, INR in the last 72 hours. APTT:No results for input(s): APTT in the last 72 hours. LIVER PROFILE: Recent Labs 06/28/21 1121 AST 40 ALT 54* BILITOT 0.4 ALKPHOS 114* Imaging Last 24 Hours: No results found. Assessment//Plan Hospital Problems Last Modified POA Delusion (HCC) 06/28/2021 Yes COvid Assessment & Plan 06/29: From medical standpoint patient can be discharged anytime. Awaiting psych clearance. Patientneeds placement post discharge. cut off worker consulted. Patient states that he does not want to gofrom here. Follow-up labs today * Hyacinth Shay RN - 06/28/2021 10:05 PM EST Patient arrived to floor with 1:1 sitter. VS stable, Patient ambulated to bathroom and back to bed.Patient calm and cooperative during assessment. Patient stable on RA. Snacks provided. Needs provided. Call light within reach. 1:1 sitter @ bedside. documented in this [facility] Work Phone: 1(757) 382-139412-16-20[address] [facility]: EDWARD CROWDER [address] [place] [address] MR#: [id number] DISCHARGE SUMMARY : 74 Service Date: 06/27/21 1330 Discharge Admission Date 06/24/21 Discharge Date 06/27/21 Principal Diagnosis mood disorder nos, SONG Secondary Diagnoses/Problem Medical Problems Anxiety Headache Medical clearance for psychiatric admission Psychosis Hospital Course Patient was brought to the PED by police on 06/24/2021 for assessment of anxiety. Reportedly he was threatening to shoot people with a gun. In the PED he presented as pressured with rapid speech. He appeared highly anxious, paranoid, hypervigilant and internally stimulated. His eyes were darting around the unit. He had been to the PED on 06/23/2021 reporting anxiety at that time as well, but was not admitted. Patient responded well to medication management. He was adherent to medication and denied side effects. He was eating and sleeping well. On the day of discharge, he did not present as a danger to himself or others. He was dressed and groomed appropriately. He was cooperative. Alert and oriented x 4. Attention and concentration were fair. Eye contact was good. Speech was clear and spontaneous. Mood was better . Affect was appropriate. THoughts were logical and coherent. Denied A/V hallucinations. Denied SI/HI. Memory intact. Psychomotor activity WNL. Insight and judgment are fair. Patient to be discharged today. Social work arranging outpatient follow up. 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 Should you need alternative housing, please contact or go to the [facility] at the [facility] Thursday through Thursday between 8am and 8pm to access the [facility] Mcfp program. They are located at [address] [place] [address], [address] [place] [address]. Their phone number is [phone] if you have questions. If it is after 8pm or on the weekend, you may report directly to [address] [place] [address] to get a bed. [place] Transportation: You will be provided with a bus pass at your request. Follow up Psychiatry: [facility] ([phone]) located at [address] [place] [address]. You can have a walk-in intake assessment at [facility] ThursdayJuly 01 at 10am. Walk-in intake assessments are available Thursday through Thursday 9am-12pm. *You have declined for tobacco cessation classes at this time. Patient refused tobacco counseling and prescriptions. Should you decide at a later date to enroll please contact one of the providers listed below: - [facility]: [place] [facility]- Cost: FREE Coaching Program is free with a four weeks supply of nicotine patches. - [facility] ([address]) For Smoking Cessation Classes: Call [phone] Thursday thru Thursday 830am to 500pm - [facility]quires a 30-40 minute phone interview 8 Smoking Cessation Classes: Call [phone] Thursday thru Thursday 830am to 430pm YOUR PRESCRIPTIONS HAVE BEEN FILLED FOR YOU! KEEP ALL SCHEDULED FOLLOW UP AND TAKE ALL MEDICATION PRESCRIBED. PLEASE ABSTAIN FROM ALL USE OF DRUGS/ALCOHOL. *PLEASE ABSTAIN FROM ALL USE OF ALCOHOL AND OTHER DRUGS* You have declined any substance use treatment at this time. If interested in outpatient treatment in the future, please call [facility] [phone]. For inpatient/residential treatment, you can contact [facility] at [phone] or Ashlee Hansen at [phone] option 2. Crisis Management Plan: If you are experiencing a crisis, please reach out to your friend Estefany Richard ([phone]), or other trusted family members or friends. *If you are experiencing an emergency and are in need of immediate attention, please call 911 or Mobile Crisis at [phone]. D/C plan sent to next level of care: Yes Name: [facility] Electronically Signed eSign Date and Time Sonja Burns CNP 06/27/21 [facility] Author Paulo Strauss [facility] July 11, 2022 3:07pm Note Date/Time July 11, 2022 3:07pm [facility] [address] [place] [address] Psychiatry Consult Note Signed Patient: Edward Crowder MR#: [id number] : 1970 Acct:[id number] Age/Sex: 52 / M Adm Date: 2 Loc: Room: [address] [place] [address] Type : ADM INOo Attending Dr: Cleveland Foreman DO Copies to: Paulo Strauss MD [facility] Cleveland Foreman DO~ HPI Consult Date: 07/11/22 Requesting Physician: Cleveland Foreman DO Primary Care Provider: [facility] Consult Narrative Reason for consult: Overdose HPI: Mr. Crowder is a 52 year old male who presented after overdose. Patient reported that he has been having a lot of issues with his medications. He reported he has not been able to sleep and struggling with severe insomnia. He stated that he overdosed on some gabapentin because he wanted to fall asleep and then carefully woke up. He reported a long history of using substances but reported that he has been sober for 5 or 6 months and is not sure if that is played a role. He reported that he was recently in [place] and the medication that gave him did not work. Reported previous treatment with Zyprexa, Geodon, Seroquel and lithium. Mental Status Exam: Appearance: grossly normal Mental Status: mental status grossly normal Mood: dysthymic mood Affect: irritable affect Speech and Movement: speech and movement normal and speech clear Attitude: cooperative Thought Process: normal Thought Content: no hallucinations, no homicidality and no current suicidality Insight: fair Judgment: fair PMFSH Vaccinated for COVID-19?: No Medical History (Updated 07/11/22 @ 15:07 by Paulo Strauss MD) Back pain History of substance abuse HTN (hypertension) Surgical History H/O neck surgery Family History Family/Other No problems noted. Social History Smoking Status: Current every day smoker Tobacco Type: cigarettes Substance Use Type: None Substance Abuse Comment: Pt states he's been clean for 6 months from illegal drug use. Meds Medications and Allergies Allergies No Known Allergies Allergy (Verified 07/09/22 13:06) Home Medications hydroxyzine pamoate 50 mg capsule (Vistaril) 50 mg PO QID PRN Anxiety 07/09/22 [History Confirmed 07/11/22] paliperidone 3 mg tablet,extended release 24 hr (Invega) 3 mg PO QPM 07/09/22 [History Confirmed 07/11/22] paliperidone 6 mg tablet,extended release 24 hr (Invega) 6 mg PO QAM 07/09/22 [History Confirmed 07/10/22] pantoprazole 40 mg tablet,delayed release 40 mg PO DAILY 07/09/22 [History Confirmed 07/11/22] topiramate 25 mg tablet (Topamax) 25 mg PO BID 07/09/22 [History Confirmed 07/11/22] Exam Physical Exam Vital Signs: Temp Pulse Resp BP Pulse Ox O2 Del Method O2 Flow Rate 98.4 F 81 20 137/71 95 Room Air 3 07/11/22 12:00 07/11/22 12:00 07/11/22 12:00 07/11/22 12:00 07/11/22 12:00 07/11/22 12:00 07/10/22 20:06 Results Labs 07/11/22 05:43 07/11/22 13:29 Psychiatry Labs: 07/10/22 07/10/22 07/10/22 14:55 14:55 15:02 RBC 4.87 Hgb 14.7 Hct 43.8 MCV 90.0 MCH 30.2 MCHC 33.5 RDW 14.5 Plt Count 342 MPV 7.4 Sodium 137 Potassium 4.0 Chloride 103 Carbon Dioxide 22.6 Anion Gap 15.4 H BUN 20 Creatinine 1.30 H Calcium 8.9 Total Bilirubin 0.6 Direct Bilirubin Indirect Bilirubin AST 29 ALT 41 Alkaline Phosphatase 93 H Total Protein 6.6 Albumin 4.0 Urine Color Yellow Urine Appearance Clear Urine pH 6.0 Ur Specific [place] 1.019 Urine Protein Negative Urine Glucose (UA) Normal Urine Ketones Negative Urine Occult Blood Negative Urine Nitrite Negative Ur Leukocyte Esterase Negative 07/11/22 07/11/22 07/11/22 05:43 05:43 13:29 RBC 4.64 Hgb 14.0 Hct 42.4 MCV 91.4 MCH 30.1 MCHC 33.0 RDW 15.2 H Plt Count 291 MPV 7.2 Sodium 137 135 L Potassium 4.2 4.6 Chloride 109 108 Carbon Dioxide 23.6 20.6 L Anion Gap 8.6 11.0 BUN 24 H 23 Creatinine 1.13 1.14 Calcium 8.5 8.6 Total Bilirubin 1.0 Direct Bilirubin 0.3 Indirect Bilirubin 0.7 AST 32 ALT 34 Alkaline Phosphatase 105 H Total Protein 6.0 L Albumin 3.5 Urine Color Urine Appearance Urine pH Ur Specific [place] Urine Protein Urine Glucose (UA) Urine Ketones Urine Occult Blood Urine Nitrite Ur Leukocyte Esterase Assessment/Plan (1) Intentional overdose: Code(s): T50.902A - Poisoning by unspecified drugs, medicaments and biological substances, intentional self-harm, initial encounter Status: Acute (2) Depression: Code(s): F32.A - Depression, unspecified Status: Acute Plan Patient presenting due to concern for overdose This patient with a lot of irritability as well Will try Remeron 7.5 mg and Depakote 500 at bedtime to help with sleep and mood stability Continue to monitor mental status Encourage group participation and medication compliance Risk benefits alternatives explained Documented By: Paulo Strauss MD 07/11/22 1505 Signed By: <Electronically signed by Paulo Strauss MD> 07/11/22 1507 [facility] Work Phone: Discharge summary Author Cleveland Foreman [facility] July 11, 2022 5:59pm Note Date/Time July 11, 2022 5:59pm [facility] [address] [place] [address] Discharge Summary Signed Patient: Edward Crowder MR#: [id number] : 1970 Acct:[id number] Age/Sex: 52 / M Adm Date: 2 Loc: Room: [address] [place] [address]: Cleveland Foreman DO Copies to: [facility] Cleveland Foreman DO~ Providers Date of Discharge: 07/11/22 Discharging Provider: Cleveland Foreman Primary Care Provider: [facility] Consults: 07/10/22 20:56 Consult to Psychiatry Routine Discharge Diagnosis (1) Intentional overdose: Final Diagnosis Final Discharge Diagnosis: As above. Intentional overdose of 2300 mg of gabapentin. Psychiatric disorder of uncertain etiology. History of treatment for chronic pain in years past. Summary Hospital Course Hospital course: This is a 52-year-old man who came to emergency room after an intentional overdose of recently prescribed gabapentin and a suicide attempt. In the emergency room he was tachycardic with a heart rate of 197 bpm. He was tachypneic with a respiratory rate of 26/min. He was briefly hypoxic and did require supplemental oxygen. He was provided with Versed and Zyprexa for acute agitation in the emergency room. After that he was somewhat sedated. Given allthese changes he was not felt to be safe to be directly admitted to the psychiatric unit. The pink slip was initiated and he was admitted to the intensive careunit for close monitoring and medical clearance. Poison control was aware of the patient. They did request creatinine kinase to make sure he did not have rhabdomyolysis. This came back normal. Other labs were normal. During his time being observed in the intensive care unit he had very pressured speech and spoke quickly and had flights of ideas. Fortunately his blood pressure and heart rates were stable. He was therefore cleared medically for ongoing psychiatric treatment. Condition Condition at Discharge: Stable Status at Discharge Functional status at discharge: independent ambulation Overall status at discharge: patient is progressing back to baseline Time Spent with Patient Time spent providing/coordinating discharge services (# min): 44 Diagnostic Studies Completed and Pending Studies Pending studies at discharge: 07/11/22 13:29 A1C with Estimated Average Glu [CHEM] Routine Treponema pallidum Ab(FTA-ABS) Routine Vitamin B1 (Thiamine) Blood Routine Labs on day of discharge: 07/11/22 13:31: Total Creatine Kinase 204 07/11/22 13:29: PHA Creatinine Clear 82.08, Sodium 135 L, Potassium 4.6, Chloride 108, Carbon Dioxide 20.6 L, Anion Gap 11.0, BUN 23, Creatinine 1.14, Est GFR ( Amer) > 60, Est GFR (Non-Af Amer) > 60, Glucose 111 H, Calcium 8.6, Total Bilirubin 1.0, Direct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 Indirect Bilirubin 0.4 AST 39 ALT 33 Alkaline Phosphatase 79 Total Protein 6.4 Albumin 3.6 Urine Color Urine Appearance Urine pH Ur Specific [place] Urine Protein Urine Glucose (UA) Urine Ketones Urine Occult Blood Urine Nitrite Ur Leukocyte Esterase Valproic Acid < 10.0 L Assessment/Plan (1) Major depressive disorder, recurrent, moderate: Code(s): F33.1 - Major depressive disorder, recurrent, moderate Status: Acute Plan Mr. Fitch is a 52-year-old male with a past medical history of bipolar disorder, polysubstance abuse, suicide who presents after an overdose on gabapentin. Will restart meds and avoid Gabapentin due to recen OD. Continue to monitor mental status Encourage group participation and medication compliance Risk, benefits, alternatives explained Documented By: Naeem Rodriges MD 3 [id number] Signed By: <Electronically signed by Naeem Rodriges MD> 09/10/22 9759 [facility] Work Phone: History and physical note Author Naeem patel [facility] February 12, 2023 1:53pm Note Date/Time February 12, 2023 11: 21am [facility] [address] [place] [address] Psychiatry H&P Signed Patient: Edward Crowder MR#: [id number] : 1970 Acct:[id number] Age/Sex: 52 / M Adm Date: 3 Loc: 1S Room: 7P3810-3 Type: ADM IN Attending Dr: Thuy Rodriges MD Copies to: Naeem Rodriges MD [facility]~ Date of Service: 02/12/2023 HPI History of Present Illness History of present illness: This is a 52-year-old male with reported history of depression, anxiety, panic disorder, suicidal ideation, insomnia and illicit drug use who presents for inpatient admission due to worsening of depression, anxiety, risk of relapse andfeeling suicidal. Reportedly, patient checked himself in attesting to thoughts of self- harm and potential for illicit drug use specifically methamphetamine andalcohol. Patient states he is also concerned with postacute withdrawal syndromelike illness. Patient was personally seen by me on the day of the encounter. I reviewed the history and performed the amador elements of the assessment. I formulated the planof care and confirmed this with the Resident as noted below At this time of the interview, he presented as anxious, worried but motivated. He reports a longstanding history of major depressive disorder and anxiety manifested as illicit drug use/dependence and suicidal ideation. Patient attested to 2 prior attempts at 16 years old and a year ago at 51 years old. Patient attests to prior detox admissions to [facility]?F: Most recent (98 days), May 2022. Patient states his drug use was provoked by life stressors pertaining to loss ofloved ones. Patient states he lost his son at 19 years old from a brain cancer in June 2012, his Carolyn at 56 years old due to an overdose/cited potential for homicide and his stepdaughter Saranya (army ) in 2016 to overdose/opioid. Currently patient denies access to firearms, intent to harm self and/or others. He is concerned with exacerbations of residual psychotic episodes resulting fromlong- term meth use. Patient states the anxiety from a risk of these flare-ups potentiate a risk of relapse. Patient states he constantly hears a low amplitude mumbling of voices that are incoherent and of unknown content however when he is down/depressed these voices exacerbate suicidal ideation and become more potent. Patient is highly motivated and would like to restart his medication regimen. Past psych history: Attests to recurrent hallucinations stemming from prior methuse which exacerbate his underlying psychiatric illness depression anxiety. 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 Relationships: No current dependents Mental status exam Mental status: Anxious, concerned Mood: Depressed, anxious Affect: Worried Speech and movement: [Speech and movement normal and speech clear] Attitude: Cooperative, pleasant Thought process: Circumstantial Thought content: Low amplitude incoherent mumbles constantly in background, reports intermittent SI but denied HI Insight: Good, aware Judgment: Good Review of systems positive for fatigue, chronic GI upset, chronic dizziness/lightheadedness, occasional slurred speech, memory loss, tingling in his hands and feet, infrequent changes in vision (foggy), nausea, infrequent vomiting, pain on urination, excessive urination more than 10 times daily. Constitutional: Patient denies malaise. Neuro: Denies TBI, seizure HEENT: Denies hearing changes. Pulmonary: Denies SOB, dyspnea, cough, wheezing. Cardiac denies chest pain/pressure. Denies edema, palpitations. GI: Denies constipation and diarrhea denies hematuria Physical exam general: Not in any acute distress Skin: Intact, tattoos HEENT: Head atraumatic, face is symmetrical. Pulm: Breathing normally without excessive effort Cardio: Regular rate and rhythm Abdomen: Normal inspection Musculoskeletal: Moves all extremities normal strength in all extremities Neuro patient is alert, oriented x3. Gait is normal. CN II: Visual holman intact CN III, IV, : EOM intact, no nystagmus CNV: Sensation intact light touch CN VII: Raises eyebrows, smile/frown, puff out cheeks symmetrically. CN VIII: Hearing intact bilaterally. CN IX, X: Voice normal, soft palate elevation normal, symmetrical CN XI: Shoulder shrug strong, equal bilaterally. CN XII: Tongue protrusion midline PMFSH Vaccinated for COVID-19?: No Medical History (Updated 02/12/23 @ 11:17 by Donnell Plunkett MD, RES) Back pain states antoni and screws L3-L5 Depression History of substance abuse HTN (hypertension) Schizophrenia Surgical History H/O neck surgery Family History Family/Other No problems noted. Other No significant family history Social History Smoking Status: Current every day smoker Tobacco Type: cigarettes Substance Use Type: Alcohol and Methamphetamine Substance Abuse Comment: ETOH daily. 1 month since last meth use Social History Comments: Girlfriend is support person Meds Medications and Allergies Allergies No Known Allergies Allergy (Verified 02/11/23 13:29) Home Medications No known home meds 02/11/23 [History Confirmed 02/11/23] Exam Physical Exam Vital Signs: Temp Pulse Resp BP Pulse Ox O2 Del Method 97.9 F 86 16 142/101 H 98 Room Air 02/12/23 07:30 02/12/23 07:30 02/11/23 20:25 02/12/23 07:30 02/12/23 07:30 02/12/23 07:30 Results Labs 02/11/23 13:38 02/11/23 13:38 Psychiatry Labs: 02/11/23 02/11/23 02/11/23 13:38 13:38 13:41 RBC 5.30 Hgb 16.3 Hct 48.0 MCV 90.7 MCH 30.8 MCHC 34.0 RDW 13.1 Plt Count 313 MPV 7.8 Sodium 137 Potassium 4.2 Chloride 106 Carbon Dioxide 22.0 Anion Gap 13.2 BUN 16 Creatinine 0.96 Calcium 9.3 Total Bilirubin 0.6 AST 23 ALT 29 Alkaline Phosphatase 91 Total Protein 7.6 Albumin 4.6 Urine Color Yellow Urine Appearance Clear Urine pH 5.5 Ur Specific [place] 1.003 Urine Protein Negative Urine Glucose (UA) Normal Urine Ketones Negative Urine Occult Blood Negative Urine Nitrite Negative Ur Leukocyte Esterase Negative Assessment/Plan (1) Polysubstance abuse: Code(s): F19.10 - Other psychoactive substance abuse, uncomplicated Status: Acute (2) Suicidal ideation: Code(s): R45.851 - Suicidal ideations Status: Acute (3) Insomnia: Code(s): G47.00 - Insomnia, unspecified Status: Acute (4) Depression: Code(s): F32.A - Depression, unspecified Status: Acute (5) Bipolar depression: Code(s): F31.9 - Bipolar disorder, unspecified Status: Acute Plan Admit to for management of depression and to ensure safety of self due to SI. Start Deoakote 500 mg PO BID and Invega 3 mg PO BID Start Requip 0.5 mg PO QHS Monitor suicidal behaviors for safety of self (15-minute face check). Recommend attending groups and psychoeducation for building coping skills. Risks, benefits and indications of medications were discussed with the patient. The patient verbalized understanding. No abnormal movements noted on exam. AIMS is Zero. Involve friends/family members to coordinate care and ensure appropriate outpatient appointments are scheduled prior to discharge. Documented By: Naeem Rodriges MD 3 [id number] Signed By: <Electronically signed by Naeem Rodriges MD> 02/12/23 1353 [facility] Work Phone: [facility] Discharge instructions* Attachments The following attachments cannot be sent through Care Everywhere. * Psychosis (Tajik) [facility] Phone: [facility] Discharge instructions* Activity:activity as tolerated. May shower. * Additional Orders:Additional Instructions: Patient will be discharged to an inpatient psych unit for further treatment and management of his major depression with suicidal ideations. * Follow Up Appointment 1:[facility] Follow Up Appointment 1:Physician/Dept/Service: [facility] for Referral: Case managem entScheduled Date/Time: 19-Aug-2022 14:30Location: [address] [place], [place] [address]Nwmso Number:[phone]: Please bring Insurance Card, Photo ID and Discharge Paperwork. * Follow Up Appointment 2:Physician/Dept/Service: [facility] for Referral: Follow up apptScheduled Date/Time: 01-Sep-2022 15:30Location: [address] [place], [place]: [phone]: Please bring Insurance Card, Photo ID and Discharge Paperwork. * Follow Up Appointment 3:Physician/Dept/Service: [facility] for Referral: Follow up apptScheduled Date/Time: 04-Sep-2022 09:00Location: [address], [place] Number: [phone]: Please bring Insurance Card, Photo ID and Discharge Paperwork. * Follow Up Appointment 4:Physician/Dept/Service: [facility] with Dr. Doyle for Referral: Follow up apptScheduled Date/Time: 08-Sep-2022 15:00Location: [address], [place] Number: [phone]: Please bring Insurance Card, Photo ID and Discharge Paperwork. [facility] Additional Instructions Regular diet No activity restrictions[facility] Work Phone: Hospital Discharge instructions Additional Instructions Important Contact Information You can call [facility] at [phone] any time day or night if you have emergent questions or question regarding discharge instructions. If at any time you are feeling an increase in your psychiatric symptoms, call your physician or behavioral healthcare provider. If any time you have thoughts of harming yourself or others contact one of the following: Call 9-8-8 (available 02/02) Crisis Text Line (available 02/02) text 4HOPE to [phone] [facility] Hope Line (available 8 a.m. Midnight) call [phone] ([phone]) [facility] Work Phone: Progress note Author Cleveland Foreman [facility] July 11, 2022 5:56pm Note Date/Time July 11, 2022 1:02pm [facility] [address] [place] [address] Hospitalist Progress Note Signed Patient: Edward Crowder MR#: [id number] : 1970 Acct:[id number] Age/Sex: 52 / M Adm Date: 2 Loc: Room: 7H2366-6 Type: DIS INOo Attending Dr: Cleveland Foreman DO Copies to: ~ Date of Service: 07/11/2022 Subjective Subjective Narrative: Patient seen and examined in bed and eating breakfast. Upon entering the room he was already very agitated. States that he was irritated with the hospital only giving him a small portion size for breakfast. States I pay my taxes I deserve more than this. He continues to come back to bed several times throughout my questioning. States that he took the gabapentin and did not care if he woke up or not. He has a history of 1 suicide attempt several years ago by taking Xanax. He has a long history of anxiety and for depression and states this is what he was originally prescribed the gabapentin for. Patient has otherwise hemodynamically stable. Does complain of neck pain going down his left shoulder. Has a history of cervical surgery and states that he would like to get this checked out well in the hospital. Patient was previously a patient at [facility]. Documents from here reviewed and he has not been seen since 2019. At that time he received a prescription for Gabapentin. PDMP reviewed and only script he received was from this ER on 07/09. Denies any other physical complaintsat this time including headache, dizziness, syncope, shortness of breath, abdominal pain, N/V. Exam Physical Exam Vital Signs: Temp Pulse Resp BP Pulse Ox O2 Del Method O2 Flow Rate 98.2 F 86 22 128/67 97 Room Air 3 07/11/22 08:00 07/11/22 08:00 07/11/22 08:00 07/11/22 08:00 07/11/22 08:00 07/11/22 08:00 07/10/22 20:06 Narrative: GENERAL APPEARANCE: resting comfortably, agitated NECK: Neck soft w/o masses, no JVD CARDIAC: Normal S1 and S2. No S3, S4 or murmurs. LUNGS: Clear to auscultation bilaterally. no wheeze/rhonchi/rales ABDOMEN: Positive bowel sounds. Soft, nontender. No guarding or signs of an acute abdomen MUSCULOSKELETAL: No joint erythema or tenderness. EXTREMITIES: No clubbing, cyanosis or edema PSYCHIATRIC: Agitated, perseverates Objective Lab Results 07/11/22 05:43 07/11/22 05:43 Meds Allergies and Active Meds Allergies No Known Allergies Allergy (Verified 07/09/22 13:06) Active Meds: Active Medications Generic Name Dose Route Start Last Admin Trade Name Freq PRN Reason Stop Dose Admin Heparin Sodium (Porcine) 5,000 unit 07/10/22 22:00 07/11/22 06:31 Heparin 5,000 Unit/Ml Vial SUBCUT 07/10/23 21:59 Not Given Q8HR MIKE Home Med 1 each 07/11/22 02:20 Home Meds Kept In Pharmacy MISCELLANE 07/11/23 02:19 PRN PRN zz.Pharmacy Note Sodium Chloride 1,000 mls @ 75 mls/hr 07/10/22 23:45 07/11/22 01:50 0.9% Sodium Chloride 1,000 Ml IV 07/10/23 23:44 75 mls/hr .[id number] MIKE Administration Sodium Chloride 0 ml 07/10/22 14:04 07/10/22 20:35 Sodium Chloride 0.9 % 10 Ml Syringe IV-PUSH 07/10/23 14:03 10 ml PRN PRN Administration Flush Sterile Water 2.1 ml 07/10/22 14:12 07/10/22 14:22 Water For Injection,Sterile 10 Ml Vial INJECTION 07/10/23 14:11 2.1 ml PRN PRN Administration To dilute OLANZapine (ZyPREXA) A&P - Hospitalist Assessment/Plan (1) Intentional overdose: Plan 1.? Gabapentin overdose Continue to monitor.? Respiratory status appears to have stabilized although some hypoxia initially reported in the ER.? 2.? Suicide attempt Consult to psychiatry.? Hold home medications for the time being given his overdose of gabapentin and overall somnolence.? EKG is unremarkable. 3.? Acute kidney injury IV fluids.? Monitor with a.m. labs 4. Acute Altered Mental status Check thiamine, CPK, FTA-Abs, TSH ++++ ++++ I personally examined the patient on this day of the encounter. I reviewed the relevant history, performed the amador elements of the physical examination, and coordinated the plan of care and I confirmed the resident's medical documentation as written. On my examination the patient he has very wild thinking and flights of ideas andvery pressured speech. He did demand an x-ray of his cervical spine which I did agree to. On examination of his legs he has no obvious loss of strength or obvious loss of sensation. He seems to be neurovascularly intact for his upper extremities and lower extremities on my bedside examination. Poison control has been aware of the patient. They did request a creatinine kinase to see if he has any rhabdomyolysis. CPK level came back normal. Other labs including LFTs, coagulation studies, and TSH came back normal. Therefore he is now medically cleared for psychiatric treatment. Documented By: Cleveland Foreman DO 1130 Signed By: <Electronically signed by Cleveland Foreman, > 07/11/22 1756 <Electronically signed by DO ALLAN Contreras> 07/11/22 1632 [facility] Work Phone: Progrxjc note Author Cleveland Foreman [facility] July 11, 2022 3:03pm Note Date/Time July 11, 2022 3:03pm [facility] [address] [place] [address] Progress Note Signed Patient: Edward Crowder MR#: [id number] : 1970 Acct:[id number] Age/Sex: 52 / M Adm Date: 2 Loc: Room: [address] [place] [address] Type: ADM INOo Attending Dr: Cleveland Foreman DO Copies to: ~ Date of Service: 07/11/2022 Progress Narrative Note PROGRESS NOTE Progress Note: Poison control had requested a creatinine kinase. This came back normal. Otherlabs at this time are normal. Liver function enzymes are normal. Coagulation studies are normal. Telemetry has been normal. As of this time, 3 PM on July 11, 2022 the patient is medically clear for further psychiatric treatment. Documented By: Cleveland Foreman DO 1501 Signed By: <Electronically signed by Cleveland Foreman, > 07/11/22 1503 [facility] Work Phone: Progrsbc note Author Naeem patel [facility] September 11, 2022 7:02am Note Date/Time September 11, 2022 7:02 am [facility] [address] [place] [address] Psychiatry Progress Note Signed Patient: Edward Crowder MR#: [id number] : 1970 Acct:[id number] Age/Sex: 52 / M Adm Date: 3 Loc: 1S Room: [address] [place] [address] Type : ADM IN Attending Dr: Thuy Rodriges MD Copies to: ~ Date of Service: 09/11/2022 Subjective Subjective Narrative: Mr. Crowder reports that he is still struggling with withdrawal symptoms. He did not open up about his mental health symptoms. He feels irritable at times and stated he did not take his medicine last night. Patient denied any homicidal thoughts. When asked why he took the medications he said to . Patient states that he is hearing both auditory and visual hallucinations. He states that the voices increased in frequency and are louder. He is also states that the visions are worse and come and go. Mental status exam Appearance: grossly normal. Poor grooming and hygiene, calm, not engaged in interview. Poor eye contact. Normal psychomotor activity Mental status: grossly normal Mood: Depressed Affect: Constricted Speech and movement: Movement normal and speech clear; regular rate, rhythm, volume, and tone. Non-pressured Attitude: Noncooperative Thought Process: sluggish Thought Content: Reports paranoid or delusional thoughts. Endorses audio and visual hallucinations, no homicidality, positive suicidality. Does not appear qasim responding to internal stimuli Insight: Poor Judgment: Poor Exam Physical Exam Vital Signs: Temp Pulse Resp BP Pulse Ox O2 Del Method 98.3 F 87 16 107/68 95 Room Air 09/10/22 20:00 09/10/22 20:00 09/10/22 20:00 09/10/22 20:00 09/10/22 20:00 09/10/22 20:00 Assessment/Plan Assessment/Plan (1) Major depressive disorder, recurrent, moderate: Code(s): F33.1 - Major depressive disorder, recurrent, moderate Status: Acute Plan Mr. Ftich is a 52-year-old male with a past medical history of bipolar disorder, polysubstance abuse, suicide who presents after an overdose on gabapentin. Has been non compliant with meds. Continue to monitor mental status Encourage group participation and medication compliance Risk, benefits, alternatives explained Documented By: Naeem Rodriges MD 3 0701 Signed By: <Electronically signed by Naeem Rodriges MD> 09/11/22 0702 [facility] Work Phone: Progress note Author Naeem patel [facility] September 12, 2022 9:03am Note Date/Time September 12, 2022 8:54 am [facility] [address] [place] [address] Psychiatry Progress Note Signed Patient: Edward Crowder MR#: [id number] : 1970 Acct:[id number] Age/Sex: 52 / M Adm Date: 3 Loc: Room: [address] [place] [address] Type : ADM IN Attending Dr: Thuy Rodriges MD Copies to: ~ Date of Service: 09/12/2022 Subjective Subjective Narrative: Mr. Crowder reports that he is severely depressed. He reported paranoid thoughts and AH. He said he can not focus due to racing thoughts. He has been withdrawan inside the room most of the time. He does not come out for groups. He reports suicidal thoughts and contracted for safety. He has not tried Invega and we discussed staring it. Mental status exam Appearance: grossly normal.?Grooming hygiene, calm, not engaged in interview.? Poor eye contact. Normal psychomotor activity Mental status: grossly normal Mood: Depressed 7 out of 10 Affect: Constricted Speech and movement: Movement normal and speech clear; regular rate, rhythm, volume, and tone. Non-pressured Attitude: Noncooperative Thought Process: Unable to be assessed Thought Content: Reports paranoid or delusional thoughts.? Endorses audio and visual hallucinations, no homicidality, positive suicidality. Does not appear qasim responding to internal stimuli Insight: Poor Judgment: Poor Exam Physical Exam Vital Signs: Temp Pulse Resp BP Pulse Ox O2 Del Method 97.8 F 76 16 119/78 100 Room Air 09/12/22 07:30 09/12/22 07:30 09/11/22 21:18 09/12/22 07:30 09/12/22 07:30 09/12/22 07:30 Assessment/Plan Assessment/Plan (1) Major depressive disorder, recurrent, moderate: Code(s): F33.1 - Major depressive disorder, recurrent, moderate Status: Acute (2) Psychosis: Code(s): F29 - Unspecified psychosis not due to a substance or known physiological condition Status: Acute Plan Switch Seroquel 50 mg PO BID to Invega 3 mg PO BID No other changes in meds today Encourage group participation Monitor mental status Documented By: Naeem Rodriges MD 3 [id number] Signed By: <Electronically signed by Naeem Rodriges MD> 09/12/22 0903 [facility] Work Phone: Progress note Author Naeem patel [facility] September 13, 2022 7:56am Note Date/Time September 13, 2022 7:55 am [facility] [address] [place] [address] Psychiatry Progress Note Signed Patient: Edward Crowder MR#: [id number] : 1970 Acct:[id number] Age/Sex: 52 / M Adm Date: 3 Loc: Room: [address] [place] [address] Type : ADM IN Attending Dr: Thuy Rodriges MD Copies to: ~ Date of Service: 09/13/2022 Subjective Subjective Narrative: Mr. Crowder reports that he is severely depressed. He reported intense racing thoughts and poor sleep. He has been staying most of the time inside his bed. Wediscussed that frequent long naps may interfere with sleep at night. He does notcome out for groups. He reports suicidal thoughts and contracted for safety. He tolerated Invega yesterday. Mental status exam Appearance: grossly normal.?Grooming hygiene, calm, not engaged in interview.? Poor eye contact. Normal psychomotor activity Mental status: grossly normal Mood: Depressed 7 out of 10 Affect: Constricted Speech and movement: Movement normal and speech clear; regular rate, rhythm, volume, and tone. Non-pressured Attitude: Noncooperative Thought Process: Unable to be assessed Thought Content: Reports paranoid or delusional thoughts.? Endorses audio and visual hallucinations, no homicidality, positive suicidality. Does not appear qasim responding to internal stimuli Insight: Poor Judgment: Poor Exam Physical Exam Vital Signs: Temp Pulse Resp BP Pulse Ox O2 Del Method 98.4 F 94 H 18 111/78 95 Room Air 09/12/22 19:25 09/12/22 19:25 09/12/22 19:25 09/12/22 19:25 09/12/22 19:25 09/12/22 19:25 Assessment/Plan Assessment/Plan (1) Major depressive disorder, recurrent, moderate: Code(s): F33.1 - Major depressive disorder, recurrent, moderate Status: Acute (2) Psychosis: Code(s): F29 - Unspecified psychosis not due to a substance or known physiological condition Status: Acute Plan Patient reprots racing thoughts, irritability and SI. Continue Depakote 500 mg PO Q am and 1000 mg PO QHS, Invega 3 mg PO BID and Topamax 25 mg PO BID Increase Seroquel to 250 mg PO QHS Patient requested gabapentin but I advised against it due to prior OD on gabapentin. Encourage group participation Monitor mental status Documented By: Naeem Rodriges MD 3 [id number] Signed By: <Electronically signed by Naeem Rodriges MD> 09/13/22 0756 [facility] Work Phone: Progress note Author Paulo Strauss [facility] September 15, 2022 2:19pm Note Date/Time September 15, 2022 2:19 pm [facility] [address] [place] [address] Psychiatry Progress Note Signed Patient: Edward Crowder MR#: [id number] : 1970 Acct:[id number] Age/Sex: 52 / M Adm Date: 3 Loc: 1S Room: [address] [place] [address] Type : ADM IN Attending Dr: Thuy Rodriges MD Copies to: ~ Date of Service: 09/15/2022 Subjective Subjective Narrative: Mr. Crowder reported that he is feeling a bit better. He reported that he does feel some restlessness and feels a little bit shaky which she attributes to withdrawal from alcohol or gabapentin. He stated that he is interested in goingto rehab and will start making phone calls. Mental status exam Appearance: grossly normal.?Grooming hygiene, calm, not engaged in interview.? Good eye contact. Normal psychomotor activity Mental status: grossly normal Mood: Improving Affect: Improving Speech and movement: Movement normal and speech clear; regular rate, rhythm, volume, and tone. Non-pressured Attitude: Noncooperative Thought Process: Unable to be assessed Thought Content: Denied audio and visual hallucinations, no homicidality, improving suicidality. Does not appear to be responding to internal stimuli Insight: Improving Judgment: Improving Exam Physical Exam Vital Signs: Temp Pulse Resp BP Pulse Ox O2 Del Method 97.7 F 91 H 16 134/93 96 Room Air 09/15/22 07:30 09/15/22 07:30 09/15/22 07:30 09/15/22 07:30 09/15/22 07:30 09/15/22 07:30 Assessment/Plan Assessment/Plan (1) Major depressive disorder, recurrent, moderate: Code(s): F33.1 - Major depressive disorder, recurrent, moderate Status: Acute (2) Psychosis: Code(s): F29 - Unspecified psychosis not due to a substance or known physiological condition Status: Acute Plan Patient reported that he is feeling better at this time. Denied current suicidal thoughts. Future oriented at this time and stated that he is interested in going to rehab Continue Depakote 500 mg PO Q am and 1000 mg PO QHS, Invega 3 mg PO BID and Topamax 25 mg PO BID, Seroquel to 250 mg PO QHS Continue to monitor mental status Encourage group participation and medication compliance Risk benefits alternatives explained Documented By: Paulo Strauss MD 09/15/221417 Signed By: <Electronically signed by Paulo Strauss MD> 09/15/22 141 [facility] Work Phone: Progress note Author Paulo Strauss [facility] September 16, 2022 12:33pm Note Date/Time September 16, 2022 12:3 3pm [facility] [address] [place] [address] Psychiatry Progress Note Signed Patient: Edward Crowder MR#: [id number] : 1970 Acct:[id number] Age/Sex: 52 / M Adm Date: 3 Loc: 1S Room: [address] [place] [address] Type : ADM IN Attending Dr: Thuy Rodriges MD Copies to: ~ Date of Service: 09/16/2022 Subjective Subjective Narrative: Mr. Crowder reported that he did not take his Invega yesterday because he believes that it is contributing to his restless legs. He stated that he still experiencing some hallucinations but overall this has been improving. He reported that his suicidal thoughts are improving but due to his lack of sleep he sometimes feels like taking some pills just so that he can sleep. Mental status exam Appearance: grossly normal.?Grooming hygiene, calm, not engaged in interview.? Good eye contact. Normal psychomotor activity Mental status: grossly normal Mood: Improving Affect: Improving Speech and movement: Movement normal and speech clear; regular rate, rhythm, volume, and tone. Non-pressured Attitude: Noncooperative Thought Process: Unable to be assessed Thought Content: Reported some mild audio and visual hallucinations, no homicidality, improving suicidality. Insight: Improving Judgment: Improving Exam Physical Exam Vital Signs: Temp Pulse Resp BP Pulse Ox O2 Del Method 97.5 F L 75 16 145/96 H 98 Room Air 09/16/22 07:30 09/16/22 07:30 09/16/22 07:30 09/16/22 07:30 09/16/22 07:30 09/16/22 07:30 Assessment/Plan Assessment/Plan (1) Major depressive disorder, recurrent, moderate: Code(s): F33.1 - Major depressive disorder, recurrent, moderate Status: Acute (2) Psychosis: Code(s): F29 - Unspecified psychosis not due to a substance or known physiological condition Status: Acute Plan Patient reported feeling a little bit better. But still reports some hallucinations. Does report poor sleep Continue Depakote 500 mg PO Q am and 1000 mg PO QHS, increase Seroquel to 50 mg in the morning and 300 mg QHS We will try doxepin 10 mg at bedtime for sleep Discontinue Invega and Topamax Continue to monitor mental status Encourage group participation and medication compliance Risk benefits alternatives explained Documented By: Paulo Strauss MD 09/16/22 1230 Signed By: <Electronically signed by Paulo Strauss MD> 09/16/22 1233 [facility] Work Phone: Progress note Author Naeem patel [facility] February 13, 2023 6:27am Note Date/Time February 13, 2023 6:2 7am [facility] [address] [place] [address] Psychiatry Progress Note Signed Patient: Edward Crowder MR#: [id number] : 1970 Acct:[id number] Age/Sex: 52 / M Adm Date: 3 Loc: Room: [address] [place] [address] Type : ADM IN Attending Dr: Thuy Rodriges MD Copies to: ~ Date of Service: 02/13/2023 Subjective Subjective Narrative: Patient reports his anxiety has been high rating at 7 out of 10 with 10 being the worst. He is still hearing muffled voices and sounds associated with VH. Hedenied side effects associated with Depakote and Invega. He said sleep has been better compared to the time of admission. He endorses SI. We discussed benefits of DAVE and he is open to considering Invega sustenna. Mental status exam Mental status: Anxious, concerned Mood: Depressed, anxious Affect: Worried Speech and movement: [Speech and movement normal and speech clear] Attitude: Cooperative, pleasant Thought process: Circumstantial Thought content: Low amplitude incoherent mumbles constantly in background, reports intermittent SI but denied HI Insight: Fair Judgment: Good Exam Physical Exam Vital Signs: Temp Pulse Resp BP Pulse Ox O2 Del Method 97.1 F L 67 16 117/73 97 Room Air 02/12/23 19:57 02/12/23 19:57 02/12/23 19:57 02/12/23 19:57 02/12/23 19:57 02/12/23 19:57 Objective Labs Labs: Abnormal Labs 02/12/23 06:20 Cholesterol 135 L 25-OH Vitamin D Total 29.2 L Assessment/Plan Assessment/Plan (1) Polysubstance abuse: Code(s): F19.10 - Other psychoactive substance abuse, uncomplicated Status: Acute (2) Suicidal ideation: Code(s): R45.851 - Suicidal ideations Status: Acute (3) Insomnia: Code(s): G47.00 - Insomnia, unspecified Status: Acute (4) Depression: Code(s): F32.A - Depression, unspecified Status: Acute (5) Bipolar depression: Code(s): F31.9 - Bipolar disorder, unspecified Status: Acute Plan Patient reports racing thoughts, AH and VH. Continue Ashwin 500 mg PO BID and Invega 3 mg PO BID Continue Requip 0.5 mg PO QHS Monitor suicidal behaviors for safety of self (15-minute face check). Recommend attending groups and psychoeducation for building coping skills. Risks, benefits and indications of medications were discussed with the patient. The patient verbalized understanding. No abnormal movements noted on exam. AIMS is Zero. Involve friends/family members to coordinate care and ensure appropriate outpatient appointments are scheduled prior to discharge. Documented By: Naeem Rodriges MD 3 0624 Signed By: <Electronically signed by Naeem Rodriges MD> 02/13/23 0627 [facility] Work Phone: Progress note Author Paulo Strauss [facility] February 14, 2023 12:34pm Note Date/Time February 14, 2023 12: 02pm [facility] [address] [place] [address] Psychiatry Progress Note Signed Patient: Edward Crowder MR#: [id number] : 1970 Acct:[id number] Age/Sex: 52 / M Adm Date: 3 Loc: Room: [address] [place] [address] Type : ADM IN Attending Dr: Thuy Rodriges MD Copies to: ~ Date of Service: 02/14/2023 Subjective Subjective Narrative: Edward reports that he still feeling some of the paranoid thoughts really badly. He reported that the medication has been helping him somewhat but feels like they could be working better. His suicidal thoughts have continued to improve. He still complaining of some restless legs at times. But this has improved slightly today. He reported that he did not use any of the as needed Zyprexa which he thinks helped him. Mental Status Exam: Appearance: grossly normal Mental Status: mental status grossly normal Mood: Some anxiety Affect: Appears anxious Speech and Movement: speech and movement normal and speech clear Attitude: cooperative Thought Process: normal Thought Content: No hallucinations, no homicidality and improving suicidality. Did report some paranoia ongoing Insight: fair Judgment: fair Exam Physical Exam Vital Signs: Temp Pulse Resp BP Pulse Ox O2 Del Method 97.8 F 96 H 18 147/94 H 97 Room Air 02/14/23 07:30 02/14/23 07:30 02/14/23 07:30 02/14/23 07:30 02/14/23 07:30 02/14/23 07:30 Assessment/Plan Assessment/Plan (1) Polysubstance abuse: Code(s): F19.10 - Other psychoactive substance abuse, uncomplicated Status: Acute (2) Suicidal ideation: Code(s): R45.851 - Suicidal ideations Status: Acute (3) Insomnia: Code(s): G47.00 - Insomnia, unspecified Status: Acute (4) Depression: Code(s): F32.A - Depression, unspecified Status: Acute (5) Bipolar depression: Code(s): F31.9 - Bipolar disorder, unspecified Status: Acute Plan Patient still reporting some paranoid thoughts Continue Ashwin 500 mg PO BID We will dose Invega 6 mg at bedtime Continue Requip 0.5 mg PO QHS Continue to monitor mental status Encourage group participation and medication compliance Risk benefits alternatives explained Documented By: Paulo Strauss MD 02/14/23 1200 Signed By: <Electronically signed by Paulo Strauss MD> 02/14/23 1234 [facility] Work Phone: Progress note Author Paulo Strauss [facility] February 15, 2023 11:00am Note Date/Time February 15, 2023 10: 59am [facility] [address] [place] [address] Psychiatry Progress Note Signed Patient: Edward Crowder MR#: [id number] : 1970 Acct:[id number] Age/Sex: 52 / M Adm Date: 3 Loc: 1S Room: [address] [place] [address] Type : ADM IN Attending Dr: Thuy Rodriges MD Copies to: ~ Date of Service: 02/15/2023 Subjective Subjective Narrative: Edward reported that he still is dealing with a lot of postacute withdrawal syndrome and feels like he is dealing with some psychosis and paranoia. He still open to going to sober living. He feels like his anxiety has been fluctuating up and down and sometimes he gets into a panic. He reported that heis also concerned about his restless legs. He reported that he slept decently but would wake up and have a difficult time getting to sleep. Mental Status Exam: Appearance: grossly normal Mental Status: mental status grossly normal Mood: Some anxiety Affect: Appears anxious Speech and Movement: speech and movement normal and speech clear Attitude: cooperative Thought Process: normal Thought Content: No hallucinations, no homicidality and improving suicidality. Did report some paranoia ongoing Insight: fair Judgment: fair Exam Physical Exam Vital Signs: Temp Pulse Resp BP Pulse Ox O2 Del Method 98.2 F 62 18 131/93 100 Room Air 02/15/23 07:30 02/15/23 07:30 02/15/23 07:30 02/15/23 07:30 02/15/23 07:30 02/15/23 07:30 Assessment/Plan Assessment/Plan (1) Polysubstance abuse: Code(s): F19.10 - Other psychoactive substance abuse, uncomplicated Status: Acute (2) Suicidal ideation: Code(s): R45.851 - Suicidal ideations Status: Acute (3) Insomnia: Code(s): G47.00 - Insomnia, unspecified Status: Acute (4) Depression: Code(s): F32.A - Depression, unspecified Status: Acute (5) Bipolar depression: Code(s): F31.9 - Bipolar disorder, unspecified Status: Acute Plan Patient still reporting some paranoid thoughts and anxiety Continue Ashwin 500 mg PO BID, will check Depakote level Increase Invega 9 mg at bedtime Increase Requip 0.5 mg PO bid We will start BuSpar 10 mg 3 times a day for anxiety Continue to monitor mental status Encourage group participation and medication compliance Risk benefits alternatives explained Documented By: Paulo Strauss MD 02/15/23 1058 Signed By: <Electronically signed by Paulo Strauss MD> 02/15/23 1100 [facility] Work Phone: Assessments Diagnosis Tension headache- Primary Advance Directives No Advanced Directives Records FoundDocuments on File Type Date Recorded 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 Advance Directives and Living Will Power of Heel Cementer Machine Documents on File Type Date Recorded 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 ACP-Advance Directive ACP-Power of Heel Cementer Machine Advance Directive Response Recorded Date/ Time Advance Directives No March 12:15pm Advance Directive Response Recorded Date/ Time Advance Directives No March 1:15pm Latest Code Status on File Code Status Date Activated Date Inactivated Comments Full Code 08/02/2022 5:12 PM 08/12/2022 3:53 PM Latest Code Status on File Code Status Date Activated Date Inactivated Comments Full Code 04/28/2023 7:40 AM 05/01/2023 3:42 PM Question Answer Comments Plan of Care: Code Status Discussion Completed Decision Maker: Patient Summary Purpose Family History No Family History Records Found Relationship Condition Age at Onset Recorded Date/T tung Not Specified No pertinent family history Unknown Relationship Condition Age at Onset Recorded Date/T tung father Schizophrenia Unknown Chief Complaint and Reason for Visit Chief Complaint firsthealth eval Reason for Visit Intentional overdose Chief Complaint firsthealth eval [facility] Reason for Visit Depression Intentional overdose Bipolar depression Intentional overdose Suicidal ideation Chief Complaint firsthealth eval [facility] mental eval Reason for Visit Depression Intentional overdose Bipolar depression Intentional overdose Suicidal ideation Chief Complaint firsthealth eval [facility] mental eval [facility] mental health Reason for Visit Depression Intentional overdose Bipolar depression Intentional overdose Suicidal ideation Chief Complaint firsthealth eval m[facility] mental eval [facility] mental health Reason for Visit Depression Intentional overdose Bipolar depression Intentional overdose Suicidal ideation Major depressive disorder, recurrent, moderate Psychosis Suicidal ideation Chief Complaint [facility] Reason for Visit Acute psychosis Insomnia Suicidal ideation Chief Complaint [facility] Reason for Visit Acute psychosis Bipolar depression Depression Insomnia Polysubstance abuse Suicidal ideation Chief Complaint [facility] need to talk to someone Reason for Visit Acute psychosis Bipolar depression Depression Insomnia Polysubstance abuse Suicidal ideation Depression with suicidal ideation Major depressive disorder, recurrent, moderate Polysubstance abuse Psychosis Chief Complaint need to talk to some one Bipolar Disorder with psychotic features Reason for Visit Depression with suic idal ideation Major depressive disorder, recurrent, moderate Polysubstance abuse Psychosis MDD (major depressive disorder), recurrent, severe, with psychosis Health Concerns Infection Onset Date Last Indicated Resolved Time COVID-19 Rule-Out 03/06/2023 03/06/2023 03/06/2023 2:53 PM EDT Infection Onset Date Last Indicated Resolved Time COVID-19 Rule-Out 04/23/2023 04/23/2023 04/23/2023 10:04 AM EDT Additional Source Comments Reason for Visit (unrecogniz ed section and content) Reason Comments Headache pt states he has bee n having headache, dizziness and blurred vision on and off x 1 month Dizziness Reason Comments Mental Health Problem Specialty Diagnoses / Procedures Referred By Contac t Referred To Contact Diagnoses Delusion (HCC) Psychosis, unspecified psychosis type (H[place]) [place] [address] [place] [address] [facility] [id number] [place] [address] Referral ID Status Reason Start Date Expiration Date Visits Re quested Visits Authorized [id number] 1 1 Reason Comments Psychiatric Evaluation pt was [place] slipp ed by [facility], denies SI & HI Reason Comments Mental Health Problem will not answer qu estions, unable is looking around, making statements about a boy Reason Comments Hallucinations Voices telling himse lf to kill himself Suicidal Reason Onset Date Comments Psychiatric Problem 03/06/2023 Request Inpatient Admission To Behavioral Health Service 03/06/2023 Reason Onset Date Comments Psychosis 04/23/2023 (unrecognized sect ion and content) No Status Records FoundNo Status Records FoundNo Status Records FoundNo Status Records FoundNo Status Records FoundNo Status Records FoundNo Status Records FoundNo Status Records FoundNo Status Records FoundNo Status Records FoundNo Status Records FoundNo Status Records Found INFORMATION SOURCE (unrecogn ized section and content) DATE CREATED AUTHOR 06/27/2019 [facility] DATE CREATED AUTHOR AUTHOR'S ORGANIZ ATION 07/11/2021 [facility] DATE CREATED AUTHOR AUTHOR'S ORGANIZ ATION 10/07/2021 [facility] DATE CREATED AUTHOR AUTHOR'S ORGANIZ ATION 01/28/2022 [facility] DATE CREATED AUTHOR AUTHOR'S ORGANIZ ATION 01/30/2022 [facility] DATE CREATED AUTHOR AUTHOR'S ORGANIZ ATION 02/09/2022 [facility] DATE CREATED AUTHOR AUTHOR'S ORGANIZ ATION 09/25/2022 [facility] DATE CREATED AUTHOR AUTHOR'S ORGANIZ ATION 03/07/2023 [facility] DATE CREATED AUTHOR AUTHOR'S ORGANIZ ATION 04/25/2023 [facility] DATE CREATED AUTHOR AUTHOR'S ORGANIZ ATION 04/27/2023 [facility] DATE CREATED AUTHOR AUTHOR'S ORGANIZ ATION 05/23/2023 [facility] DATE CREATED AUTHOR AUTHOR'S ORGANIZ ATION 06/05/2023 [facility] Ordered Prescriptions (unrec ognized section and content) Prescription Sig Dispensed Refills Start Date End Da te cetirizine (ZYRTEC) 10 MG tablet Take 1 tablet by mouth daily for 5 days 5 tablet 0 07/02/2021 07/07/2021 montelukast (SINGULAIR) 10 MG tablet Take 1 tablet by mouth nightly 30 tablet 3 07/01/2021 Scheduled Active and Recently Administ ered Medications (unrecognized section and content) Medication Order 06/29/2021 06/30/2021 07/01/2021 cetirizine (ZYRTEC) tablet 10 mg 10 mg, Oral, DAILY, First dose on 07/01/21 at 1030, Substituted for Loratadine (CLARITIN). 1236 (Given - Provider: Ericka Grubbs RN) enoxaparin (LOVENOX) injection 40 mg 40 mg, SubCUTAneous, DAILY, First dose on Thu06/28/21 at 1615 1049 (Given - Provider: Rhonda Vigil RN) 1016 (Given - Provider: Christi Garcia, SHELIA) 0840 (Given - Provider: Ericka Grubbs RN) lithium capsule 150 mg (CANCELED) 150 mg, Oral, 3 TIMES DAILY WITH MEALS, First dose on 06/29/21 at 1715, Maintain adequate fluid and sodium intake 1834 (Given - Provider: Rhonda Vigil RN) 1025 (Given - Provider: Christi Garcia RN)1502 (Given - Provider: Christi Garcia RN) lithium capsule 300 mg (CANCELED) 300 mg, Oral, 2 TIMES DAILY WITH MEALS, First dose (after last modification) on 06/30/21 at 1800, Maintain adequate fluid and sodium intake 1915 (Given - Provider: Christi Garcia RN) 0840 (Not Given - Provider: Ericka Grubbs, SHELIA - Reason: Patient/family refused) montelukast (SINGULAIR) tablet 10 mg 10 mg, Oral, NIGHTLY, First dose on 07/01/21 at 1030 2100 (Due - Provider : Ericka Grubbs, RN) multivitamin 1 tablet 1 tablet, Oral, DAILY, First dose on 06/29/21 at 1630 1704 (Given - Provider: Rhonda Vigil RN) 1017 (Given - Provider: Christi Garcia RN) 0841 (Given - Provider: Ericka Grubbs, SHELIA) nicotine (NICODERM CQ) 21 MG/24HR 1 patch 1 patch, TransDERmal, Administer over 24 Hours, DAILY, First dose on 06/29/21 at 1630, Apply new patch to nonhairy, clean, dry skin on the upper body or upper outer arm. Rotate patch sites. Notify pharmacy if patient or provider prefers patch to be removed at bedtime and replaced in the morning. Hazardous Medication -- Refer to facility policy for handling and disposal. 1703 (Not Given - Provider: Rhonda Vigil RN - Reason: Patient/family refused - Comment: pt refused patch, patch wasted.) 1016 (Not Given - Provider: Christi Garcia RN - Reason: Patient/family refused) 0840 (Not Given - Provider: Ericka Grubbs, SHELIA - Reason: Patient/family refused) OLANZapine (ZYPREXA) tablet 15 mg 15 mg, Oral, NIGHTLY, First dose on 06/29/21 at 2100 2138 (Given - Provider: Hyacinth Shay RN) 0007 (Not Given - Provider: Mini Mcwilliams LPN - Reason: Other - Comment: Pt has rash on head neck and vargas)2100 (Due) thiamine tablet 100 mg 100 mg, Oral, DAILY, First dose on 06/29/21 at 1630 1706 (Given - Provider: Rhonda Vigil, RN) 1017 (Given - Provider: Christi Garcia, SHELIA) 0840 (Given - Provider: Ericka Grubbs, SHELIA) Continuous Medication Order 06/29/2021 06/30/2021 07/01/2021 0.9 % sodium chloride infusion () IntraVENous, at 100 mL/hr, CONTINUOUS, Starting on 06/30/21 at 0900, For 10 hours, For 1 liter 1024 (New Bag - Provider: Christi Garcia, SHELIA) PRN Medication Order 06/29/2021 06/30/2021 07/01/2021 acetaminophen (TYLENOL) tablet 650 mg 650 mg, Oral, EVERY 4 HOURS PRN, Pain Mild (1-3), Starting on 06/30/21 at 0118, Maximum dose of acetaminophen is 4000 mg from all sources in 24 hours. 0134 (Given - Provider: Hyacinth Shay RN) benzocaine-menthol (CEPACOL SORE THROAT) lozenge 1 lozenge 1 lozenge, Oral, EVERY 2 HOURS PRN, Sore Throat, Starting on 06/30/21 at 1208 1246 (Given - Provider: Christi Garcia RN)1505 (Given - Provider: Christi Garcia RN) haloperidol lactate (HALDOL) injection 5 mg 5 mg, IntraMUSCular, EVERY 6 HOURS PRN, Agitation, Starting on Thu06/28/21 at 1614, IM route of administration preferred. Because of the risk of TdP and QT prolongation, ECG monitoring is recommended if haloperidol is given IV. 0044 (Given - Provider: Lisa Akins, SHELIA) hydrOXYzine (VISTARIL) capsule 50 mg 50 mg, Oral, EVERY 4 HOURS PRN, Anxiety, Starting on Thu06/28/21 at 1614 1050 (Given - Provider: Rhonda Vigil, SHELIA) LORazepam (ATIVAN) injection 1 mg(Linked Group 1) 1 mg, IntraVENous, EVERY 1 HOUR PRN (WITHDRAWAL), Withdrawal, For alcohol withdrawal., Starting on 06/29/21 at 1603, For CIWA score 8 to 10. If both oral and intravenous CIWA medications ordered, use intravenous if unable to tolerate oral equivalent. Reassess CIWA one hour after each dose of medication and as needed. 1732 (See Alternative - Provider: Rhonda Vigil RN) 0133 (Given - Provider: Hyacinth Shay RN)1025 (Given - Provider: Christi Garcia, SHELIA) 0855 (See Alternative - Provider: Ericka Grubbs, RN) LORazepam (ATIVAN) injection 2 mg (CANCELED) 2 mg, IntraVENous, EVERY 6 HOURS PRN, Anxiety, Irritation, Starting on Thu06/28/21 at 1614 0750 (Given - Provider: Hyacinth Shay RN) LORazepam (ATIVAN) injection 2 mg(Linked Group 1) 2 mg, IntraVENous, EVERY 1 HOUR PRN (WITHDRAWAL), Withdrawal, For alcohol withdrawal., Starting on 06/29/21 at 1603, For CIWA score 11 to 15. If both oral and intravenous CIWA medications ordered, use intravenous if unable to tolerate oral equivalent. Reassess CIWA one hour after each dose of medication and as needed. 173 (Given - Provider: Rhonda Vigil RN) 013 (See Alternative - Provider: Hyacinth Shay RN)1025 (See Alternative - Provider: Christi Garcia RN) 0855 (Given - Provider: Ericka Grubbs, SHELIA) LORazepam (ATIVAN) injection 3 mg(Linked Group 1) 3 mg, IntraVENous, EVERY 1 HOUR PRN (WITHDRAWAL), Withdrawal, For alcohol withdrawal., Starting on 06/29/21 at 1603, For CIWA score 16 to 20. If both oral and intravenous CIWA medications ordered, use intravenous if unable to tolerate oral equivalent. Reassess CIWA one hour after each dose of medication and as needed. 1732 (See Alternative - Provider: Rhonda Vigil RN) 0133 (See Alternative - Provider: Hyacinth Shay RN)1025 (See Alternative - Provider: Christi Garcia RN) 0855 (See Alternative - Provider: Ericka Grubbs, SHELIA) LORazepam (ATIVAN) injection 4 mg(Linked Group 1) 4 mg, IntraVENous, EVERY 1 HOUR PRN (WITHDRAWAL), Withdrawal, For alcohol withdrawal., Starting on 06/29/21 at 1603, For CIWA score greater than 20. If both oral and intravenous CIWA medications ordered, use intravenous if unable to tolerate oral equivalent. Reassess CIWA one hour after each dose of medication and as needed. 1732 (See Alternative - Provider: Rhonda Vigil RN) 0133 (See Alternative - Provider: Hyacinth Shay RN)1025 (See Alternative - Provider: Christi Garcia RN) 0855 (See Alternative - Provider: Ericka Grubbs, SHELIA) LORazepam (ATIVAN) tablet 1 mg(Linked Group 1) 1 mg, Oral, EVERY 1 HOUR PRN (WITHDRAWAL), For alcohol withdrawal., Starting on 06/29/21 at 1603, For CIWA score 8 to 10. Reassess CIWA one hour after each dose of medication and as needed. 1732 (See Alternative - Provider: Rhonda Vigil RN) 0133 (See Alternative - Provider: Hyacinth Shay RN)1025 (See Alternative - Provider: Christi Garcia RN) 0855 (See Alternative - Provider: Ericka Grubbs, SHELIA) LORazepam (ATIVAN) tablet 2 mg(Linked Group 1) 2 mg, Oral, EVERY 1 HOUR PRN (WITHDRAWAL), For alcohol withdrawal., Starting on 06/29/21 at 1603, For CIWA score 11 to 15. Reassess CIWA one hour after each dose of medication and as needed. 1732 (See Alternative - Provider: Rhonda Vigil RN) 0133 (See Alternative - Provider: Hyacinth Shay RN)1025 (See Alternative - Provider: Christi Garcia RN) 0855 (See Alternative - Provider: Ericka Grubbs, SHELIA) LORazepam (ATIVAN) tablet 3 mg(Linked Group 1) 3 mg, Oral, EVERY 1 HOUR PRN (WITHDRAWAL), For alcohol withdrawal., Starting on 06/29/21 at 1603, For CIWA score 16 to 20. Reassess CIWA one hour after each dose of medication and as needed. 1732 (See Alternative - Provider: Rhonda Vigil RN) 0133 (See Alternative - Provider: Hyacinth Shay RN)1025 (See Alternative - Provider: Christi Garcia RN) 0855 (See Alternative - Provider: Ericka Grubbs, SHELIA) LORazepam (ATIVAN) tablet 4 mg(Linked Group 1) 4 mg, Oral, EVERY 1 HOUR PRN (WITHDRAWAL), For alcohol withdrawal., Starting on 06/29/21 at 1603, For CIWA score greater than 20. Reassess CIWA one hour after each dose of medication and as needed. 1732 (See Alternative - Provider: Rhonda Vigil RN) 0133 (See Alternative - Provider: Hyacinth Shay RN)1025 (See Alternative - Provider: Christi Garcia RN) 0855 (See Alternative - Provider: Ericka Grubbs, SHELIA) Linked Groups Order Group 1: LORazepam (ATIVAN) tablet 1 mgJump to med 1 mg, Oral, EVERY 1 HOUR PRN (WITHDRAWAL), For alcohol withdrawal., Starting on 06/29/21 at 1603
For CIWA score 8 to 10. Reassess CIWA one hour after each dose of medication and as needed.
Or LORazepam (ATIVAN) injection 1 mgJump to med 1 mg, IntraVENous, EVERY 1 HOUR PRN (WITHDRAWAL), Withdrawal, For alcohol withdrawal., Starting on 06/29/21 at 1603
For CIWA score 8 to 10. If both oral and intravenous CIWA medications ordered, use intravenous if unable to tolerate oral equivalent. Reassess CIWA one hour after each dose of medication and as needed.
Or LORazepam (ATIVAN) tablet 2 mgJump to med 2 mg, Oral, EVERY 1 HOUR PRN (WITHDRAWAL), For alcohol withdrawal., Starting on 06/29/21 at 1603
For CIWA score 11 to 15. Reassess CIWA one hour after each dose of medication and as needed.
Or LORazepam (ATIVAN) injection 2 mgJump to med 2 mg, IntraVENous, EVERY 1 HOUR PRN (WITHDRAWAL), Withdrawal, For alcohol withdrawal., Starting on 06/29/21 at 1603
For CIWA score 11 to 15. If both oral and intravenous CIWA medications ordered, use intravenous if unable to tolerate oral equivalent. Reassess CIWA one hour after each dose of medication and as needed.
Or LORazepam (ATIVAN) tablet 3 mgJump to med 3 mg, Oral, EVERY 1 HOUR PRN (WITHDRAWAL), For alcohol withdrawal., Starting on 06/29/21 at 1603
For CIWA score 16 to 20. Reassess CIWA one hour after each dose of medication and as needed.
Or LORazepam (ATIVAN) injection 3 mgJump to med 3 mg, IntraVENous, EVERY 1 HOUR PRN (WITHDRAWAL), Withdrawal, For alcohol withdrawal., Starting on 06/29/21 at 1603
For CIWA score 16 to 20. If both oral and intravenous CIWA medications ordered, use intravenous if unable to tolerate oral equivalent. Reassess CIWA one hour after each dose of medication and as needed.
Or LORazepam (ATIVAN) tablet 4 mgJump to med 4 mg, Oral, EVERY 1 HOUR PRN (WITHDRAWAL), For alcohol withdrawal., Starting on 06/29/21 at 1603
For CIWA score greater than 20. Reassess CIWA one hour after each dose of medication and as needed.
Or LORazepam (ATIVAN) injection 4 mgJump to med 4 mg, IntraVENous, EVERY 1 HOUR PRN (WITHDRAWAL), Withdrawal, For alcohol withdrawal., Starting on 06/29/21 at 1603
For CIWA score greater than 20. If both oral and intravenous CIWA medications ordered, use intravenous if unable to tolerate oral equivalent. Reassess CIWA one hour after each dose of medication and as needed.
Scheduled Medication Order 07/06/2021 07/07/2021 07/08/2021 Hydrocort-Pramoxine (Perianal) (ANALPRAM-HC) 2.5-1 % rectal cream Rectal, 2 TIMES DAILY, First dose on Thu07/08/21 at 2119 2130 (Given - Provid er: Lina Beasley RN) OLANZapine (ZYPREXA) tablet 15 mg 15 mg, Oral, NIGHTLY, First dose on 12/27/21 at 2100 2138 (Given - Provid er: Nasrin Mota RN) Scheduled Medication Order 07/25/2022 07/26/2022 07/27/2022 haloperidol lactate (HALDOL) injection 10 mg (COMPLETED) 10 mg, IntraMUSCular, ONCE, 1 dose, On 07/27/22 at 0836, IM route of administration preferred. Because of the risk of TdP and QT prolongation, ECG monitoring is recommended if haloperidol is given IV. 0840 (Given - Provid er: Jamie Flores RN) LORazepam (ATIVAN) injection 2 mg (COMPLETED) 2 mg, IntraMUSCular, ONCE, 1 dose, On 07/27/22 at 0836 0841 (Given - Provid er: Jamie Flores RN) Scheduled Medication Order 09/22/2022 09/23/2022 09/24/2022 haloperidol lactate (HALDOL) injection 5 mg (COMPLETED) 5 mg, IntraMUSCular, ONCE, 1 dose, On 09/23/22 at 1256, IM route of administration preferred. Because of the risk of TdP and QT prolongation, ECG monitoring is recommended if haloperidol is given IV. 1306 (Given - Provider: Lucila Ruiz, SHELIA) PRN Medication Order 09/22/2022 09/23/2022 09/24/2022 LORazepam (ATIVAN) injection 2 mg 2 mg, IntraMUSCular, EVERY 6 HOURS PRN, Starting on 09/23/22 at 1254, Until Discontinued, Anxiety, Irritation, Agitation 1306 (Given - Provider: Lucila Ruiz, SHELIA) Care Teams (unrecognized sec tion and content) Team Status: Active Member Role Status [facility] Primary Care Provider Active Team Status: Inactive Member Role Status [facility] Primary Care Provider Active Steve Almendarez PA-C Emergency Provider Active Thuy Rodriges MD Admit Provider, Attending Pr ovider Active Team Status: Active Member Role Status [facility] Primary Care Provider Active Steve Almendarez PA-C Emergency Provider Active Thuy Rodriges MD Admit Provider, Attending Pr ovider Active Cutting Supervisor Relationship Specialty Start Date End Date E, Taina Biggs [facility] [place] [address] PCP - General Nurse Practitioner Adult Health 05/02/19 Cutting Supervisor Relationship Specialty Start Date End Date E, Taina Biggs [address] [place] [address] PCP - General Nurse Practitioner Adult Health 05/02/19 Team Status: Active Member Role Status [facility] Primary Care Provider Active Steve Almendarez PA-C Emergency Provider Active Chas Hoyos DO Admit Provider, Attending Provider Active Team Status: Inactive Member Role Status [facility] Primary Care Provider Active Rik Lemos DO Emergency Provider Active Team Status: Inactive Member Role Status [facility] Primary Care Provider Active Eric Rust DO Emergency Provider Active Team Status: Inactive Member Role Status [facility] Primary Care Provider Active Steve Almendarez PA-C Emergency Provider Active Chas Hoyos DO Admit Provider Active Cleveland Foreman DO Attending Provider Active Paulo Strauss MD Other Provider Active Team Status: Inactive Member Role Status [facility] Primary Care Provider Active Paulo Strauss MD Admit Provider, Attending Provider Active Team Status: Inactive Member Role Status [facility] Primary Care Provider Active Tessie Freitas APRN Emergency Provider Active Cutting Supervisor Relationship Specialty Start Date End Date Trae Brantley [address] [place] [address] PCP - General Nurse Practitioner [facility] 05/02/19 Team Status: Active Member Role Status [facility] Primary Care Provider Active Greg Alexander DO Emergency Provider Active Thuy Rodriges MD Admit Provider, Attending Pr ovider Active Team Status: Inactive Member Role Status [facility] Primary Care Provider Active Greg Alexander DO Emergency Provider Active Thuy Rodriges MD Admit Provider, Attending Pr ovider Active Cutting Supervisor Relationship Specialty Start Date End Date Trae Brantley [address] [place] [address] PCP - General Nurse Practitioner Adult Health 05/02/19 Cutting Supervisor Relationship Specialty Start Date End Date Pedrito Duran MD [address] [place] [address] PCP - General Anesthesiology 10/24/10 Team Status: Inactive Member Role Status [facility] Primary Care Provider Active Steve Almendarez PA-C Emergency Provider Active Paulo Strauss MD Attending Provider Active Naeem Rodriges MD Admit Provider Active Team Status: Inactive Member Role Status [facility] Primary Care Provider Active Nir England DO Emergency Provider Active Paulo Strauss MD Admit Provider, Attending Provider Active Cutting Supervisor Relationship Specialty Start Date End Date Kimberley Trae Becki [address] [place] [address] PCP - General Family Medicine 04/23/23 Cutting Supervisor Relationship Specialty Start Date End Date Trae Brantley APRN-[facility] [address] [place] [address] PCP - General 03/23/23 Team Status: Inactive Member Role Status [facility] Primary Care Provider Active Nir England DO Emergency Provider Active Naeem Rodriges MD Attending Provider Active Paulo Strauss MD Admit Provider Active <item><item><item><item><item><item><item><item><item><item> Privacy Markings (unrecogniz ed section and content) Section Author: Michaela Mi PROHIBITION ON REDISCLOSURE OF CONFIDENTIAL INFORMATION This notice accompanies a disclosure of information concerning a client made to you with the consent of such client. Section Author: Michaela Mi PROHIBITION ON REDISCLOSURE OF CONFIDENTIAL INFORMATION This notice accompanies a disclosure of information concerning a client made to you with the consent of such client. Section Author: Michaela Mi PROHIBITION ON REDISCLOSURE OF CONFIDENTIAL INFORMATION This notice accompanies a disclosure of information concerning a client made to you with the consent of such client. Section Author: Michaela Mi PROHIBITION ON REDISCLOSURE OF CONFIDENTIAL INFORMATION This notice accompanies a disclosure of information concerning a client made to you with the consent of such client. Section Author: Michaela Mi PROHIBITION ON REDISCLOSURE OF CONFIDENTIAL INFORMATION This notice accompanies a disclosure of information concerning a client made to you with the consent of such client. Section Author: Michaela Mi PROHIBITION ON REDISCLOSURE OF CONFIDENTIAL INFORMATION This notice accompanies a disclosure of information concerning a client made to you with the consent of such client. Section Author: Michaela Mi PROHIBITION ON REDISCLOSURE OF CONFIDENTIAL INFORMATION This notice accompanies a disclosure of information concerning a client made to you with the consent of such client. Section Author: Michaela Mi PROHIBITION ON REDISCLOSURE OF CONFIDENTIAL INFORMATION This notice accompanies a disclosure of information concerning a client made to you with the consent of such client. Section Author: Michaela Mi PROHIBITION ON REDISCLOSURE OF CONFIDENTIAL INFORMATION This notice accompanies a disclosure of information concerning a client made to you with the consent of such client. Section Author: Michaela Mi PROHIBITION ON REDISCLOSURE OF CONFIDENTIAL INFORMATION This notice accompanies a disclosure of information concerning a client made to you with the consent of such client. Goals (unrecognized section and content) Goals may be documented in a n alternate sectionGoals may be documented in an alternate section Source Comments (unrecognize d section and content) In the event this informatio n is protected by the Federal Confidentiality of Alcohol and Drug Abuse Patient Records regulations: The Federal rules restrict any use of the information to criminally investigate or prosecute any alcohol or drug abuse patient.[facility] the event this information is protected by the Federal Confidentiality of Alcohol and Drug Abuse Patient Records regulations: The Federal rules restrict any use of the information to criminally investigate or prosecute any alcohol or drug abuse patient.[facility] FOR RECORDS PERTAINING TO PATIENTS WHO ARE OR HAVE BEEN ENROLLED IN A CHEMICAL DEPENDENCY/SUBSTANCEABUSE PROGRAM, SOME INFORMATION MAY BE OMITTED. This clinical summary was aggregated from multiple sources. Caution should be exercised in using it in the provision of clinical care. This summary normalizes information from multiple sources, and as a consequence, information in this document may materially change the coding, format and clinical context of patient data. In addition, data may be omitted in some cases. CLINICAL DECISIONS SHOULD BE BASED ON THE PRIMARY CLINICAL RECORDS. [facility]. provides no warranty or guarantee of the accuracy or completeness of information in this document.
== END 2023-05-25 13:39 | disposition home or self-care (01) ==
PROVIDERS: Emergency Provider Emergency Medicine; PCP Family Medicine
DX: R11.2 Nausea with vomiting, unspecified (principal); F17.210 Nicotine dependence, cigarettes, uncomplicated
CPT/HCPCS: 36415; 71045; 74177; 80048; 80307; 80320; 81001; 82550; 85025; 93005; 96361; 96374; 96375; 96376; 99285; Q9967

== ENCOUNTER 2023-05-27 10:35 | Emergency (ER) | payer OTHER, SELFPAY ==
[2023-05-27] VITALS (15 sets, daily range): BP systolic 96–182; BP diastolic 63–100; PULSE 75–133; RESP 13–30; TEMP 37.4; O2SAT 94–100; BMI 28.7
--- NOTE | 2023-05-27 10:37 | CT_ITS ---
The [address] [address] Patient Name: MITCHELL MAGALLANES MRN: [id number] date: 1970 Sex: M Assigned Patient Location: ER Current Patient Location: ER Accession/Order Number: [id number] Exam Date: 05/27/2023 11:24 Report Date: 05/27/2023 11:48 At the request of: SUJATA CORTEZ Procedure: CT cervical spine wo con EXAM: CT head/brain wo con, CT cervical spine wo con HISTORY: new onset seizure head and neck pain COMPARISON: None. TECHNIQUE: Axial soft tissue and bone windows from the upper thoracic spine through the calvarium with coronal and sagittal reformats. CT dose reduction technique was used including Automated Exposure Control. Findings: Head: No depressed or calvarial fracture. The paranasal sinuses and mastoid air cells are well aerated. No air-fluid levels. No extra-axial fluid collection. No intra-axial or extra-axial bleed. No mass effect or midline shift. The noe-white matter differentiation is preserved. The brain parenchymal volume is age appropriate. The ventricles are nondilated. The basal cisterns are patent. The craniovertebral junction is unremarkable. Cervical spine: No prevertebral soft tissue swelling. No acute fracture or malalignment. There is age or spinal fusion hardware extending from C4 through C7. No evidence of acute hardware complication. Mild multilevel degenerative spondylosis. No severe canal stenosis. The visualized lung apices are unremarkable. CT/CT cervical spine wo con IMPRESSION: 1. No depressed or calvarial fracture. 2. No acute intracranial bleed. 3. No acute cervical spine fracture or malalignment. Electronically authenticated by: MARK ALLEN Date: 05/27/2023 11:48
--- NOTE | 2023-05-27 10:37 | ECG_ITS ---
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
--- NOTE | 2023-05-27 10:38 | CT_ITS ---
The [address] [address] Patient Name: MITCHELL MAGALLANES MRN: [id number] date: 1970 Sex: M Assigned Patient Location: ER Current Patient Location: ER Accession/Order Number: [id number] Exam Date: 05/27/2023 11:24 Report Date: 05/27/2023 11:48 At the request of: SUJATA CORTEZ Procedure: CT head/brain wo con EXAM: CT head/brain wo con, CT cervical spine wo con HISTORY: new onset seizure head and neck pain COMPARISON: None. TECHNIQUE: Axial soft tissue and bone windows from the upper thoracic spine through the calvarium with coronal and sagittal reformats. CT dose reduction technique was used including Automated Exposure Control. Findings: Head: No depressed or calvarial fracture. The paranasal sinuses and mastoid air cells are well aerated. No air-fluid levels. No extra-axial fluid collection. No intra-axial or extra-axial bleed. No mass effect or midline shift. The noe-white matter differentiation is preserved. The brain parenchymal volume is age appropriate. The ventricles are nondilated. The basal cisterns are patent. The craniovertebral junction is unremarkable. Cervical spine: No prevertebral soft tissue swelling. No acute fracture or malalignment. There is age or spinal fusion hardware extending from C4 through C7. No evidence of acute hardware complication. Mild multilevel degenerative spondylosis. No severe canal stenosis. The visualized lung apices are unremarkable. CT/CT head/brain wo con IMPRESSION: 1. No depressed or calvarial fracture. 2. No acute intracranial bleed. 3. No acute cervical spine fracture or malalignment. Electronically authenticated by: AMRK ALLEN Date: 05/27/2023 11:48
[2023-05-27 10:44] LABS: Glucometer 95 mg/dL (74-106)
--- NOTE | 2023-05-27 10:48 | ED.SEIZURE1 ---
HPI - Seizure General Chief Complaint: Seizure Stated Complaint: SEIZURE Time Seen by Provider: 05/27/23 10:37 Source: other Source comment: EMS Mode of arrival: ambulance Limitations: no limitations History of Present Illness HPI Narrative: Patient is undergoing alcohol detox at [facility]. He came to our ED two days ago for nausea and vomiting and had an unremarkable CT abd/pelvis. He also had unremarkable blood testing and felt better after ED treatment so he was discharged back to the facility. He now returns by EMS after a witnessed seizure at the facility. According to report from one of the employees at [facility], the patient came to the nurse's station and then had a grand mal seizure . He received 2mg Ativan IM - seizure lasted several minutes per the report. EMS arrived and found the patient alert and oriented and awake but with lower extremity tremors. He was transported to our facility with NS IVF started via peripheral IV. On arrival the patient is sweaty and anxious but not post-ictal. He is shaky and has a dry mouth. He has symptoms of withdrawal despite denying any alcohol use for the last 4 weeks. He admits to headache and neck pain prior to the seizure. He told me that he has previously had seizures but was never diagnosed with epilepsy and thought they might be related to alcohol withdrawal. He does not see a Neurologist locally. [facility] staff reported that the patient was on a Keppra taper while in their facility. Related Data Previous Rx's Medication Instructions Recorded dicyclomine 10 mg capsule 10 mg PO QID PRN abdominal pain 05/25/23 #20 caps ondansetron 4 mg disintegrating 4 mg PO Q6H PRN nausea and 05/25/23 tablet vomiting #20 tabs Allergies Allergy/AdvReac Type Severity Reaction Status Date / Time No Known Drug Allergies Allergy Verified 05/25/23 07:49 [facility] Social History Smoking status: Former smoker Exam Narrative Exam Narrative: Nurses notes and vital signs reviewed and patient is not hypoxic. afebrile General: Mild apparent distress, tremors and shaking legs. Skin: Warm, no pallor noted. Diaphoretic Head: Normocephalic, atraumatic. Neck: Supple, non-tender at midline. no meningismus. Bilateral paracervical soft tissue tenderness noted. Eye: Pupils are equal, round and EOMI. No scleral icterus. Ears, Nose, Mouth, and Throat: Dry oral mucosa Cardiovascular: tachycardia Respiratory: No accessory muscle use or respiratory distress. Lungs are clear to auscultation, no wheezing, rales or rhonchi Chest Wall: no tenderness, crepitus or subcutaneous emphysema Back: No midline thoracic or lumbar vertebral tenderness. Musculoskeletal: normal ROM, no calf or popliteal tenderness, no lower extremity edema/swelling GI: Abdomen is soft, non-distended. Normal bowel sounds. No tenderness to palpation. No rebound, guarding, or rigidity noted. Neurological: A&O x4. No cranial nerve dysfunction observed. No truncal ataxia. Moves all extremities. Sensation intact. Psychiatric: Flat affect. Constitutional Vital Signs, click to edit/add: Last Vital Signs Temp 99.3 F 05/27/23 10:40 Pulse 78 05/27/23 13:00 Resp 25 H 05/27/23 10:46 BP 101/77 05/27/23 13:00 Pulse Ox 97 05/27/23 13:00 O2 Del Method Room Air 05/27/23 11:19 Course Vital Signs Vital signs: Vital Signs Temperature 99.3 F 05/27/23 10:40 Pulse Rate 129 H 05/27/23 10:40 Respiratory Rate 30 H 05/27/23 10:40 Blood Pressure 182/100 H 05/27/23 10:40 Pulse Oximetry 98 05/27/23 10:40 Oxygen Delivery Method Room Air 05/27/23 10:40 Temperature 99.3 F 05/27/23 10:40 Pulse Rate 78 05/27/23 13:00 Respiratory Rate 25 H 05/27/23 10:46 Blood Pressure 101/77 05/27/23 13:00 Pulse Oximetry 97 05/27/23 13:00 Oxygen Delivery Method Room Air 05/27/23 11:19 MDM - Seizure MDM Narrative Medical decision making narrative: seizure precautions initiated. Patient was placed on security monitor and EKG obtained. Blood drawn and sent for evaluation. urine obtained and sent for testing. the patient is anxious and tremoring - he was ordered to receive IM Haldol, IV Valium, IV Zofran, IV Benadryl. He received the rest of the NS IVF that EMS started. the patient was sent for CT scanning of the brain and cervical spine. All tests are unremarkable/negative for acute worrisome pathology, including ethanol, covid testing. Patient calmed substantially the patient's workup was negative and the patient was able to be awakened. On awakening, the patient began tremoring again which makes me think this is psychosomatic as opposed to medical. Patient discharged back to [facility]. Report called by ED nurse to their facility. Lab Data Attestation: I reviewed the patient's lab results. Labs: Lab Results 05/27/23 05/27/23 05/27/23 Range/Units 10:42 11:09 11:19 WBC 10.5 (4.0-11.0) 10^3/uL RBC 5.09 (4.70-6.10) 10^6/uL Hgb 15.6 (14.0-18.0) g/dL Hct 45.7 (42.0-54.0) % MCV 89.8 (80.0-94.0) fL MCH 30.6 (25.9-34.0) pg MCHC 34.1 (29.9-35.2) g/dL RDW 12.6 (11.0-15.0) % Plt Count 378 (150-450) 10^3/uL MPV 8.7 L (9.5-13.5) fL Neut % (Auto) 78.9 H (43.0-75.0) % Lymph % (Auto) 11.6 L (20.5-60.0) % [place] % (Auto) 8.7 (1.7-12.0) % Eos % (Auto) 0.3 L (0.9-7.0) % Baso % (Auto) 0.2 (0.2-2.0) % Neut # (Auto) 8.3 H (1.4-6.5) 10^3/uL Lymph # (Auto) 1.2 (1.2-3.8) 10^3/uL [place] # (Auto) 0.9 H (0.3-0.8) 10^3/uL Eos # (Auto) 0.0 (0.0-0.7) 10^3/uL Baso # (Auto) 0.0 (0.0-0.1) 10^3/uL Abs Immat Gran (auto) 0.03 (0.00-0.03) 10^3/uL Imm/Tot Granulo (auto) 0.3 (0.0-0.5) % Sodium 137 (136-145) mmol/L Potassium 3.8 (3.5-5.1) mmol/L Chloride 100 (98-107) mmol/L Carbon Dioxide 23.4 (21.0-32.0) mmol/L Anion Gap 17.4 BUN 14.0 (7.0-18.0) mg/dL Creatinine 1.30 (0.70-1.30) mg/dL Est GFR ( Amer) >60 (>=60) Est GFR (Non-Af Amer) 58 L (>=60) BUN/Creatinine Ratio 10.8 Glucose 87 (74-106) mg/dL Lactate 1.9 (0.4-2.0) mmol/L Calcium 8.9 (8.5-10.1) mg/dL Total Bilirubin 0.7 (0.2-1.0) mg/dL AST 30 (15-37) U/L ALT 55 (16-63) U/L Alkaline Phosphatase 108 (46-116) U/L Total Protein 7.7 (6.4-8.2) g/dL Albumin 4.0 (3.4-5.0) g/dL Globulin 3.7 g/dL Albumin/Globulin Ratio 1.1 Urine Color (YELLOW) Urine Clarity (CLEAR) Urine pH (5.0-9.0) Ur Specific [place] (1.005-1.025) Urine Protein (NEG/TRACE) mg/dL Urine Glucose (UA) (NEGATIVE) mg/dL Urine Ketones (NEGATIVE) mg/dL Urine Occult Blood (NEGATIVE) Urine Nitrite (NEGATIVE) Urine Bilirubin (NEGATIVE) Urine Urobilinogen (0.2-1.0) EU/dL Ur Leukocyte Esterase (NEGATIVE) Urine Opiates Screen (NEGATIVE) Ur Buprenorphine Scrn (NEGATIVE) Ur Oxycodone Screen (NEGATIVE) Urine Methadone Screen (NEGATIVE) Ur Barbiturates Screen (NEGATIVE) U Tricyclic Antidepress (NEGATIVE) Ur Phencyclidine Scrn (NEGATIVE) Ur Amphetamines Screen (NEGATIVE) U Methamphetamines Scrn (NEGATIVE) U Benzodiazepines Scrn (NEGATIVE) Urine Cocaine Screen (NEGATIVE) U Cannabinoids Screen (NEGATIVE) Ethanol Quant <3 mg/dL SARS-CoV-2 (PCR) Negative (NEGATIVE) POC Glucose 95 (74-106) mg/dL 05/27/23 Range/Units 11:40 WBC (4.0-11.0) 10^3/uL RBC (4.70-6.10) 10^6/uL Hgb (14.0-18.0) g/dL Hct (42.0-54.0) % MCV (80.0-94.0) fL MCH (25.9-34.0) pg MCHC (29.9-35.2) g/dL RDW (11.0-15.0) % Plt Count (150-450) 10^3/uL MPV (9.5-13.5) fL Neut % (Auto) (43.0-75.0) % Lymph % (Auto) (20.5-60.0) % [place] % (Auto) (1.7-12.0) % Eos % (Auto) (0.9-7.0) % Baso % (Auto) (0.2-2.0) % Neut # (Auto) (1.4-6.5) 10^3/uL Lymph # (Auto) (1.2-3.8) 10^3/uL [place] # (Auto) (0.3-0.8) 10^3/uL Eos # (Auto) (0.0-0.7) 10^3/uL Baso # (Auto) (0.0-0.1) 10^3/uL Abs Immat Gran (auto) (0.00-0.03) 10^3/uL Imm/Tot Granulo (auto) (0.0-0.5) % Sodium (136-145) mmol/L Potassium (3.5-5.1) mmol/L Chloride (98-107) mmol/L Carbon Dioxide (21.0-32.0) mmol/L Anion Gap BUN (7.0-18.0) mg/dL Creatinine (0.70-1.30) mg/dL Est GFR ( Amer) (>=60) Est GFR (Non-Af Amer) (>=60) BUN/Creatinine Ratio Glucose (74-106) mg/dL Lactate (0.4-2.0) mmol/L Calcium (8.5-10.1) mg/dL Total Bilirubin (0.2-1.0) mg/dL AST (15-37) U/L ALT (16-63) U/L Alkaline Phosphatase (46-116) U/L Total Protein (6.4-8.2) g/dL Albumin (3.4-5.0) g/dL Globulin g/dL Albumin/Globulin Ratio Urine Color Lt. yellow (YELLOW) Urine Clarity Clear (CLEAR) Urine pH 7.0 (5.0-9.0) Ur Specific [place] <=1.005 A (1.005-1.025) Urine Protein Negative (NEG/TRACE) mg/dL Urine Glucose (UA) Negative (NEGATIVE) mg/dL Urine Ketones Negative (NEGATIVE) mg/dL Urine Occult Blood Negative (NEGATIVE) Urine Nitrite Negative (NEGATIVE) Urine Bilirubin Negative (NEGATIVE) Urine Urobilinogen 0.2 (0.2-1.0) EU/dL Ur Leukocyte Esterase Negative (NEGATIVE) Urine Opiates Screen Negative (NEGATIVE) Ur Buprenorphine Scrn Negative (NEGATIVE) Ur Oxycodone Screen Negative (NEGATIVE) Urine Methadone Screen Negative (NEGATIVE) Ur Barbiturates Screen Negative (NEGATIVE) U Tricyclic Antidepress Negative (NEGATIVE) Ur Phencyclidine Scrn Negative (NEGATIVE) Ur Amphetamines Screen Negative (NEGATIVE) U Methamphetamines Scrn Negative (NEGATIVE) U Benzodiazepines Scrn Positive A (NEGATIVE) Urine Cocaine Screen Negative (NEGATIVE) U Cannabinoids Screen Negative (NEGATIVE) Ethanol Quant mg/dL SARS-CoV-2 (PCR) (NEGATIVE) POC Glucose (74-106) mg/dL Imaging Data CT scan - head: Radiologist's impression: Patient Name: MITCHELL MAGALLANES MRN: [id number] date: 1970 Sex: M Assigned Patient Location: ER Current Patient Location: ER Accession/Order Number: [id number] Exam Date: 05/27/2023 11:24 Report Date: 05/27/2023 11:48 At the request of: SUJATA CORTEZ Procedure: CT head/brain wo con EXAM: CT head/brain wo con, CT cervical spine wo con HISTORY: new onset seizure head and neck pain COMPARISON: None. TECHNIQUE: Axial soft tissue and bone windows from the upper thoracic spine through the calvarium with coronal and sagittal reformats. CT dose reduction technique was used including Automated Exposure Control. Findings: Head: No depressed or calvarial fracture. The paranasal sinuses and mastoid air cells are well aerated. No air-fluid levels. No extra-axial fluid collection. No intra-axial or extra-axial bleed. No mass effect or midline shift. The noe-white matter differentiation is preserved. The brain parenchymal volume is age appropriate. The ventricles are nondilated. The basal cisterns are patent. The craniovertebral junction is unremarkable. Cervical spine: No prevertebral soft tissue swelling. No acute fracture or malalignment. There is age or spinal fusion hardware extending from C4 through C7. No evidence of acute hardware complication. Mild multilevel degenerative spondylosis. No severe canal stenosis. The visualized lung apices are unremarkable. IMPRESSION: 1. No depressed or calvarial fracture. 2. No acute intracranial bleed. 3. No acute cervical spine fracture or malalignment. Electronically authenticated by: MARK ALLEN Date: 05/27/2023 11:48 ECG Data Attestation: I personally reviewed and interpreted this ECG as follows: Interpretation: EKG interpretation: Emergency Department physician interpretation. Sinus tachycardia rhythm at 132bpm. RVH, no ST segment elevation or depression. Discharge Plan Discharge Chief Complaint: Seizure Clinical Impression: Observed seizure-like activity Patient Disposition: Home, Self-Care Time of Disposition Decision: 14:00 Prescriptions / Home Meds: No Action dicyclomine 10 mg capsule 10 mg PO QID PRN (Reason: abdominal pain) Qty: 20 0RF ondansetron 4 mg tablet,disintegrating 4 mg PO Q6H PRN (Reason: nausea and vomiting) Qty: 20 0RF Instructions: Alcohol Withdrawal (ED), Epilepsy in Older Adults (ED) Stand Alone Forms: Portal Instructions Referrals: ROMINA BARNES [Primary Care Provider] - 1 week
[2023-05-27] MEDS: DIPHENHYDRAMINE HCL 50 MG/ML (1ML) VIAL 25 MG IV (10:56)
[2023-05-27] MEDS: DIAZEPAM 5 MG/ML - 2 ML INJ SYRINGE IV (10:56)
[2023-05-27] MEDS: HALOPERIDOL LACTATE 5 MG/ML VIAL IM (10:56)
[2023-05-27] MEDS: ONDANSETRON PF 4 MG/2 ML VIAL IV (10:56)
[2023-05-27] MEDS: 0.9 % SODIUM CHLORIDE 1,000 ML 999 ML IV (10:57)
--- NOTE | 2023-05-27 11:17 | PC.NURSE ---
On arrival patient is awake and alert, answers all questions appropriately. Patient is restless and thrashing legs around.
[2023-05-27 11:43] LABS: Alanine Aminotransferase 55 U/L (16-63); Albumin Globulin Ratio 1.1; Alkaline Phosphatase 108 U/L (46-116); Anion Gap 17.4; Aspartate Amino Transferase 30 U/L (15-37); BUN Creatinine Ratio 10.8; Bilirubin Total 0.7 mg/dL (0.2-1.0); Calcium 8.9 mg/dL (8.5-10.1); Carbon Dioxide 23.4 mmol/L (21.0-32.0); Chloride 100 mmol/L (98-107); Estimated GFR (African America >60 (>=60); Estimated GFR (Non-African Ame 58 (>=60); Ethanol <3 mg/dL; Globulin 3.7 g/dL; Glucose 87 mg/dL (74-106); Potassium 3.8 mmol/L (3.5-5.1); Sodium 137 mmol/L (136-145); Total Protein 7.7 g/dL (6.4-8.2)
[2023-05-27 11:44] LABS: SARS-CoV-2 Ag NEGATIVE (NEGATIVE)
[2023-05-27 11:46] LABS: Basophils Percent Auto 0.2 % (0.2-2.0); Eosinophils Percent Auto 0.3 % (0.9-7.0); Hematocrit 45.7 % (42.0-54.0); Hemoglobin 15.6 g/dL (14.0-18.0); Immature Granulocytes Abs Auto 0.03 10^3/uL (0.00-0.03); Immature Granulocytes Pct Auto 0.3 % (0.0-0.5); Lactate/Lactic Acid 1.9 mmol/L (0.4-2.0); Lymphocytes Absolute Auto 1.2 10^3/uL (1.2-3.8); Lymphocytes Percent Auto 11.6 % (20.5-60.0); Mean Corpuscular HGB Conc 34.1 g/dL (29.9-35.2); Mean Corpuscular Hemoglobin 30.6 pg (25.9-34.0); Mean Corpuscular Volume 89.8 fL (80.0-94.0); Mean Platelet Volume 8.7 fL (9.5-13.5); Monocytes Absolute Auto 0.9 10^3/uL (0.3-0.8); Monocytes Percent Auto 8.7 % (1.7-12.0); Neutrophils Absolute Auto 8.3 10^3/uL (1.4-6.5); Neutrophils Percent Auto 78.9 % (43.0-75.0); Platelet Count 378 10^3/uL (150-450); Red Blood Count 5.09 10^6/uL (4.70-6.10); Red Cell Distribution Width 12.6 % (11.0-15.0); White Blood Count 10.5 10^3/uL (4.0-11.0)
[2023-05-27] MEDS: LEVETIRACETAM 500 MG in 0.9 % SODIUM CHLORIDE 100 ML IV (11:46)
[2023-05-27 12:07] LABS: Bilirubin Urine NEGATIVE (NEGATIVE); Blood Urine NEGATIVE (NEGATIVE); Clarity Urine CLEAR (CLEAR); Color Urine LT. YELLOW (YELLOW); Glucose Urine UA NEGATIVE (NEGATIVE); Ketones Urine NEGATIVE (NEGATIVE); Leukocyte Esterase Urine NEGATIVE (NEGATIVE); Nitrite Urine NEGATIVE (NEGATIVE); Protein Urine NEGATIVE (NEG/TRACE); Specific Gravity Urine <=1.005 (1.005-1.025); Urobilinogen Urine 0.2 EU/dL (0.2-1.0)
[2023-05-27 12:08] LABS: Urine Microscopic Indicated NO
[2023-05-27 12:13] LABS: Amphetamine Screen Urine NEGATIVE (NEGATIVE); Barbiturates Screen Urine NEGATIVE (NEGATIVE); Cannabinoid Screen Urine NEGATIVE (NEGATIVE); Cocaine Screen Urine NEGATIVE (NEGATIVE); Methadone Screen Urine NEGATIVE (NEGATIVE); Methamphetamines Screen Urine NEGATIVE (NEGATIVE); Opiate Screen Urine NEGATIVE (NEGATIVE); Oxycodone Screen Urine NEGATIVE (NEGATIVE); Phencyclidine Screen Urine NEGATIVE (NEGATIVE); Tricyclic Antidepressant Urine NEGATIVE (NEGATIVE)
[2023-05-27 12:14] LABS: Buprenorphine Screen Urine NEGATIVE (NEGATIVE)
[2023-05-27 12:17] LABS: Benzodiazepines Screen Urine POSITIVE (NEGATIVE)
--- NOTE | 2023-05-27 14:34 | PC.NURSE ---
In to patient room for discharge and patient states I need to talk with someone I want to kill myself . Patient relays he has had history of suicidal ideations and attempts. Dr. Farris notified. Call placed to [facility] and face sheet faxed over.
--- NOTE | 2023-05-27 14:39 | PC.NURSE ---
Patient speaking with Sonja from [facility] counseling at this time
[2023-05-27 14:59] LABS: SARS-CoV-2 NAA NOT DETECTED (NOT DETECTE)
--- NOTE | 2023-05-27 15:59 | PC.NURSE ---
Acceptance received for patient at [facility]. Spoke with nurse Morales at [facility] to inform them of transfer.
--- NOTE | 2023-05-27 16:45 | PC.NURSE ---
Report called to nurse Ramon at [facility]. Patient en route at this time.
== END 2023-05-27 16:47 ==
PROVIDERS: Emergency Provider Emergency Medicine; PCP Family Medicine
DX: F31.9 Bipolar disorder, unspecified (principal); R45.851 Suicidal ideations; R56.9 Unspecified convulsions; R51.9 Headache, unspecified; M54.2 Cervicalgia; Z87.891 Personal history of nicotine dependence
CPT/HCPCS: 36415; 70450; 72125; 80053; 80307; 80320; 81003; 83605; 85025; 87040; 87635; 87811; 93005; 96365; 96372; 96375; 99285